=== PATIENT | male | born 1965 | race Caucasian/White ===

== ENCOUNTER 2017-07-30 19:01 | Inpatient (IN) | payer MEDICARE, MEDICAID ==
[~2017-07-30] VITALS: Ht 170.2 cm; Wt 77.6 kg
--- NOTE | 2017-07-30 19:37 | EKG ---
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
[2017-07-30 19:48] LABS: BASO % 1 % (0-3); EOS # 0.1 x10^3/uL (0.0-0.7); EOS % 2 % (0-3); HEMATOCRIT 38.7 % (39.0-53.0); HEMOGLOBIN 13.3 g/dL (13.0-17.5); LYMPH # 1.8 x10^3/uL (1.0-4.8); LYMPH % 29 % (24-48); MEAN CORPUSCULAR HEMOGLOBIN 31 pg (25-35); MEAN CORPUSCULAR HGB CONC 34 g/dL (31-37); MEAN CORPUSCULAR VOLUME 92 fL (79-100); MONO # 0.8 x10^3/uL (0.0-1.1); MONO % 13 % (0-9); NEUT # 3.3 x10^3uL (1.8-7.7); NEUT % 55 % (31-73); PLATELET COUNT 294 x10^3/uL (140-400); RED BLOOD COUNT 4.24 x10^6/uL (4.30-5.70); RED CELL DISTRIBUTION WIDTH 13.3 % (11.5-14.5)
[2017-07-30 19:59] LABS: PHENY 13.8 mcg/mL (10.0-20.0)
[2017-07-30 20:00] LABS: ALBUMIN 3.7 g/dL (3.4-5.0); ALBUMIN/GLOBULIN RATIO 0.8 (1.0-1.7); CALCIUM 9.7 mg/dL (8.5-10.1); GFR 77.9; MAGNESIUM 2.1 mg/dL (1.8-2.4); POTASSIUM 3.8 mmol/L (3.5-5.1); TOTAL BILIRUBIN 0.2 mg/dL (0.2-1.0); TOTAL PROTEIN 8.3 g/dL (6.4-8.2); VAL ACID 25 mcg/mL (50-100)
--- NOTE | 2017-07-30 20:22 | PHYS DOC ---
Adult General Chief Complaint Chief Complaint: MEDICAL CLEARANCE HPI HPI Patient is a 52-year-old male with psychiatric history who is brought in the ED for medical clearance prior to being admitted for psychiatric evaluation. There are no acute complaints Review of Systems Review of Systems Constitutional: No complaints [] Eyes: No complaints HENT: No complaints Respiratory: No complaints[] Cardiovascular: No complaintsI [] GI: No complaints : No complaints Musculoskeletal: No complaints[] Integument: No complaints] Neurologic: No complaints [] All other systems were reviewed and found to be within normal limits, except as documented in this note. Allergies Allergies Allergies Coded Allergies Type Severity Reaction Last Updated Verified haloperidol Allergy Unknown 07/30/17 Yes ketchup Allergy Unknown 07/30/17 Yes Physical Exam Physical Exam Constitutional: Well developed, well nourished, no acute distress, non-toxic appearance. [] HENT: Normocephalic, atraumatic, bilateral external ears normal, oropharynx moist, no oral exudates, nose normal. [] Eyes: EOMI, conjunctiva normal, no discharge. [] Neck: Normal range of motion, no tenderness, supple, no stridor. No LAD, no meningeal signs Cardiovascular:Heart rate regular rhythm, no murmur, normal perfusion, equal pulses Lungs & Thorax: Bilateral breath sounds clear to auscultation, no tachypnea Abdomen: Bowel sounds normal, soft, no tenderness, no masses, no pulsatile masses. [] Skin: Warm, dry, no erythema, no rash. [] Back: No tenderness, no CVA tenderness. [] Extremities: No tenderness, , ROM intact, no edema. [] Neurologic: Alert and oriented X 3, normal motor function, , no focal deficits noted. [] Psychologic: Affect normal Current Patient Data Lab Results Laboratory Tests Test 07/30/17 19:25 White Blood Count 6.0 x10^3/uL (4.0-11.0) Red Blood Count 4.24 x10^6/uL (4.30-5.70) L Hemoglobin 13.3 g/dL (13.0-17.5) Hematocrit 38.7 % (39.0-53.0) L Mean Corpuscular Volume 92 fL (79-100) Mean Corpuscular Hemoglobin 31 pg (25-35) Mean Corpuscular Hemoglobin Concent 34 g/dL (31-37) Red Cell Distribution Width 13.3 % (11.5-14.5) Platelet Count 294 x10^3/uL (140-400) Neutrophils (%) (Auto) 55 % (31-73) Lymphocytes (%) (Auto) 29 % (24-48) Monocytes (%) (Auto) 13 % (0-9) H Eosinophils (%) (Auto) 2 % (0-3) Basophils (%) (Auto) 1 % (0-3) Neutrophils # (Auto) 3.3 x10^3uL (1.8-7.7) Lymphocytes # (Auto) 1.8 x10^3/uL (1.0-4.8) Monocytes # (Auto) 0.8 x10^3/uL (0.0-1.1) Eosinophils # (Auto) 0.1 x10^3/uL (0.0-0.7) Basophils # (Auto) 0.0 x10^3/uL (0.0-0.2) Sodium Level 139 mmol/L (136-145) Potassium Level 3.8 mmol/L (3.5-5.1) Chloride Level 103 mmol/L (98-107) Carbon Dioxide Level 28 mmol/L (21-32) Anion Gap 8 (6-14) Blood Urea Nitrogen 17 mg/dL (8-26) Creatinine 1.0 mg/dL (0.7-1.3) Estimated GFR (Cockcroft-Gault) 77.9 BUN/Creatinine Ratio 17 (6-20) Glucose Level 186 mg/dL (70-99) H Calcium Level 9.7 mg/dL (8.5-10.1) Magnesium Level 2.1 mg/dL (1.8-2.4) Total Bilirubin 0.2 mg/dL (0.2-1.0) Aspartate Amino Transferase (AST) 15 U/L (15-37) Alanine Aminotransferase (ALT) 16 U/L (16-63) Alkaline Phosphatase 76 U/L (46-116) Total Protein 8.3 g/dL (6.4-8.2) H Albumin 3.7 g/dL (3.4-5.0) Albumin/Globulin Ratio 0.8 (1.0-1.7) L Phenytoin (Dilantin) Level 13.8 mcg/mL (10.0-20.0) Phenytoin Last Dose Date 07/30/17 Phenytoin Last Dose Time 0800 Valproic Acid Level 25 mcg/mL (50-100) L Valproic Acid Last Dose Date 07/30/17 Valproic Acid Last Dose Time 0800 EKG EKG 1935, sinus rhythm, no STEMI, 85[] Radiology/Procedures Radiology/Procedures [] Course & Med Decision Making Course & Med Decision Making Pertinent Labs and Imaging studies reviewed. (See chart for details) [] Dragon Disclaimer Dragon Disclaimer This electronic medical record was generated, in whole or in part, using a voice recognition dictation system. Amadeo COLBY MD Jul 30, 2017 20:22
[2017-07-30] MEDS ORDERED: VALPROIC ACID 250 MG CAPSULE. PO SCH (20:49)
[2017-07-30 21:17] LABS: BARBITURATES NEG (NEG); BENZODIAZEPINES NEG (NEG); CANNABINOIDS NEG (NEG); COCAINE NEG (NEG); METHADONE NEG (NEG); OPIATES NEG (NEG); PHENCYCLIDINE NEG (NEG)
[2017-07-30 21:21] LABS: BACTERIA,URINE 0 /HPF (0-FEW); BILIRUBIN,URINE NEG (NEG); CLARITY,URINE HAZY; COLOR,URINE YELLOW; GLUCOSE,URINE 100 mg/dL (NEG); NITRITE,URINE NEG (NEG); RBC,URINE RARE /HPF (0-2); SQUAMOUS EPITHELIAL CELL,UR OCC /LPF; UROBILINOGEN,URINE 0.2 mg/dL (0.2 mg/dL); WBC,URINE OCC /HPF (0-4)
[2017-07-30 21:24] LABS: AMPHETAMINE/METHAMPHETAMINE NEG (NEG)
[2017-07-30] MEDS ORDERED: PHEN125O4 PO (22:46)
[2017-07-30] MEDS ORDERED: TOLT2CAP PO (22:46)
[2017-07-30] MEDS ORDERED: SELE180S3 TP (22:46)
[2017-07-30] MEDS ORDERED: OLAN5TAB3 PO (22:46)
[2017-07-30] MEDS ORDERED: OLAN10TA9 PO (22:46)
[2017-07-30] MEDS ORDERED: SODI100G DT (22:46)
[2017-07-30] MEDS ORDERED: PANT40TA5 PO (22:46)
[2017-07-30] MEDS ORDERED: RISP25DI IM (22:46)
[2017-07-30] MEDS ORDERED: LEVO200T5 PO (22:46)
[2017-07-30] MEDS ORDERED: ATOR10TA60 PO (22:46)
[2017-07-30] MEDS ORDERED: LORA1TAB PO (22:46)
[2017-07-30] MEDS ORDERED: MULT1TAB90 PO (22:46)
[2017-07-30] MEDS ORDERED: OLAN20TA3 PO (22:46)
[2017-07-30] MEDS ORDERED: OMEG-33 PO (22:46)
[2017-07-30] MEDS ORDERED: DIVA500T4 PO ×2 (22:46)
[2017-07-30] MEDS ORDERED: POLY119P4 PO (22:46)
[2017-07-30] MEDS ORDERED: CHOL10003 PO (22:46)
[2017-07-30] MEDS ORDERED: CLOZ200T PO ×2 (22:46)
[2017-07-30] MEDS ORDERED: ACET500T68 PO (22:46)
[2017-07-30 23:37] VITALS: BP 133/61
[2017-07-31] MEDS ORDERED: QUET100T4 PO (01:53)
[2017-07-31 06:58] VITALS: BP 111/69
[2017-07-31] MEDS: LEVOTHYROXINE 100 MCG TABLET PO SCH (07:23)
[2017-07-31] MEDS ORDERED: SELENIUM SULFIDE 1% TOPICAL SHAMPOO 207ML BOTTLE. TP SCH ×2 (07:30→14:29)
[2017-07-31] MEDS ORDERED: OLANZapine 10 MG TABLET PO SCH ×2 (09:00→21:00)
[2017-07-31] MEDS ORDERED: DIVALPROEX ER 500 MG TAB.ER.24H PO SCH ×3 (09:00→21:00)
[2017-07-31] MEDS ORDERED: SODIUM FLUORIDE DT SCH (09:00)
[2017-07-31] MEDS: cloZAPine 100 MG TABLET PO SCH ×2 (09:35→20:27)
[2017-07-31] MEDS: DIVALPROEX ER 500 MG TAB.ER.24H PO SCH (09:35)
[2017-07-31] MEDS: OLANZapine 10 MG TABLET PO SCH (09:36)
[2017-07-31] MEDS: OXYBUTYNIN CHLORIDE 5 MG TABLET PO SCH ×3 (09:36→20:27)
[2017-07-31] MEDS: OMEGA-3 FATTY ACIDS/FISH OIL 1,000 MG CAPSULE. PO SCH (09:36)
[2017-07-31] MEDS: QUEtiapine 100 MG TABLET. PO SCH ×2 (09:36→20:27)
[2017-07-31 11:21] LABS: THYROID STIM HORMONE (TSH) 1.764 uIU/mL (0.358-3.740)
[2017-07-31] MEDS ORDERED: OLANZapine 5 MG TABLET PO SCH ×2 (14:00)
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
[2017-07-31 16:17] VITALS: BP 138/63
[2017-07-31 16:18] LABS: HEMOGLOBIN A1C 5.2 % (4.8-5.6); T3 TOTAL 90 ng/dL (71-180); THYROXINE 4.8 ug/dL (4.5-12.0)
[2017-07-31] MEDS: ATORVASTATIN CALCIUM 10 MG TABLET. PO SCH (20:27)
[2017-07-31] MEDS: PHENYTOIN SODIUM EXTENDED 100 MG CAPSULE PO SCH (20:27)
[2017-07-31] MEDS ORDERED: ATORVASTATIN CALCIUM 10 MG TABLET. PO SCH (21:00)
--- NOTE | 2017-07-31 21:06 | PDOC ---
Exam Note: Chad Note: Please also refer to the separate dictated note~for this date of service dictated separately.~Patient seen individually. Discussed the patient with Nursing staff reviewed the chart.~Reviewed interim history and current functioning. Reviewed vital signs,~Labs/ Radiology~and current medications noted below. Continue current treatment with the changes noted in the dictated addendum note Assessment: Vital Signs: Vital Signs Date Time Temp Pulse Resp B/P (MAP) Pulse Ox O2 Delivery O2 Flow Rate FiO2 07/31/17 16:17 97.2 95 16 138/63 (88) 98 Room Air I&O Intake and Output 07/31/17 07:00 Intake Total 0 ml Balance 0 ml Intake Oral 0 ml Current Medications: Meds: Current Medications Valproic Acid (Depakene) 500 mg STAT PO Last administered on 07/30/17at 21:21; Start 07/30/17 at 20:49 Divalproex Sodium (Depakote Er) 1,000 mg QHS PO ; Start 07/31/17 at 21:00; Stop 07/31/17 at 21:00; Status DC Divalproex Sodium (Depakote Er) 500 mg DAILY PO ; Start 07/31/17 at 09:00; Stop 07/31/17 at 09:00; Status DC Lorazepam (Ativan) 1 mg PRN BID PRN PO ANXIETY / AGITATION; Start 07/30/17 at 23 :00 Olanzapine (ZyPREXA) 10 mg DAILY PO ; Start 07/31/17 at 09:00; Stop 07/31/17 at 09:00; Status DC Olanzapine (ZyPREXA) 5 mg DAILY@1400 PO ; Start 07/31/17 at 14:00; Stop at 14:00; Status DC Risperidone (RisperDAL CONSTA) 25 mg Q2WKS IM ; Start 08/13/17 at 09:00; Status UNV Clozapine (Clozaril) 200 mg DAILY PO Last administered on 07/31/17at 09:35; Start 07/31/17 at 09:00 Clozapine (Clozaril) 500 mg QHS PO Last administered on 07/31/17at 20:27; Start 07/31/17 at 21:00 Olanzapine (ZyPREXA) 20 mg QHS PO Last administered on 07/31/17at 20:28; Start 07/31/17 at 21:00 Atorvastatin Calcium (Lipitor) 10 mg QHS PO ; Start 07/31/17 at 21:00; Stop 03/10 at 21:00; Status DC Phenytoin Sodium (Dilantin) 300 mg QHS PO Last administered on 07/31/17at 20:27 ; Start 07/31/17 at 21:00 Non-Formulary Medication (Sodium Fluoride (Prevident 5000)) 1 carlee BID DT ; Start 07/31/17 at 09:00; Stop 07/31/17 at 09:00; Status DC Oxybutynin Chloride (Ditropan) 5 mg [id number] PO Last administered on 07/31/17at 20 :27; Start 07/31/17 at 09:00 Quetiapine Fumarate (SEROquel) 100 mg BID PO Last administered on 07/31/17 20: 27; Start 07/31/17 at 09:00 Acetaminophen (Tylenol) 500 mg PRN Q4HRS PRN PO PAIN; Start 07/31/17 at 07:15 Levothyroxine Sodium (Synthroid) 200 mcg DAILY06 PO Last administered on at 07:23; Start 07/31/17 at 07:15 Fish Oil (Fish Oil) 1,000 mg DAILY PO Last administered on 07/31/17at 09:36; Start 07/31/17 at 09:00 Selenium Sulfide (Selsun) 1 carlee TWICEWEEKLY TP ; Start 07/31/17 at 07:30; Stop 07/31/17 at 14:29; Status DC Divalproex Sodium (Depakote Er) 1,000 mg QHS PO Last administered on 07/31/17at 20:26; Start 07/31/17 at 21:00 Atorvastatin Calcium (Lipitor) 10 mg QHS PO Last administered on 07/31/17 20: 27; Start 07/31/17 at 21:00 Divalproex Sodium (Depakote Er) 500 mg DAILY PO Last administered on 07/31/17at 09:35; Start 07/31/17 at 09:00 Olanzapine (ZyPREXA) 10 mg DAILY PO Last administered on 07/31/17at 09:36; Start 07/31/17 at 09:00 Olanzapine (ZyPREXA) 5 mg DAILY@1400 PO Last administered on 07/31/17at 15:07; Start 07/31/17 at 14:00 Selenium Sulfide (Selsun) 1 carlee TWICEWEEKLY TP ; Start 07/31/17 at 14:29 Active Scripts Active Reported Seroquel (Quetiapine Fumarate) 100 Mg Tablet 100 Mg PO BID Prevident 5000 (Sodium Fluoride) 100 Ml Gel..ml. 1 Carlee DT BID Selenium Sulfide 180 Ml Shampoo 1 Carlee TP TWICE WEEKLY Lorazepam 1 Mg Tablet 1 Mg PO PRN BID PRN Acetaminophen 500 Mg Tablet 500 Mg PO PRN Q4HRS PRN Risperdal Consta (Risperidone Microspheres) 25 Mg/2 Ml Disp.syrin 25 Mg IM Q2WKS Phenytoin 125 Mg/5 Ml Oral.susp 300 Mg PO QHS Zyprexa (Olanzapine) 20 Mg Tablet 20 Mg PO QHS Atorvastatin Calcium 10 Mg Tablet 10 Mg PO QHS Zyprexa (Olanzapine) 5 Mg Tablet 5 Mg PO DAILY@1400 Clozapine 200 Mg Tablet 500 Mg PO QHS Clozapine 200 Mg Tablet 200 Mg PO DAILY Detrol La (Tolterodine Tartrate) 2 Mg Cap.er.24h 2 Mg PO BID Depakote Er (Divalproex Sodium) 500 Mg Tab.er.24h 500 Mg PO DAILY Depakote Er (Divalproex Sodium) 500 Mg Tab.er.24h 1,000 Mg PO QHS [place] 3 1,000 Mg Softgel ([place]-3 Fatty Acids/Fish Oil) 1 Each Capsule 1,000 Mg PO DAILY Thera-M Tablet (Multivits,Ca,Minerals/Iron/Fa) 1 Each Tablet 1 Tab PO DAILY Vitamin D3 (Cholecalciferol (Vitamin D3)) 1,000 Unit Tablet 2,000 Unit PO DAILY Olanzapine 10 Mg Tablet 10 Mg PO DAILY Miralax (Polyethylene Glycol 3350) 119 Gm Powder 17 Gm PO DAILY Levothyroxine Sodium 200 Mcg Tablet 200 Mcg PO DAILY06 Pantoprazole Sodium 40 Mg Tablet.dr 40 Mg PO DAILY I have reviewed the current psychotropics carefully including drug interactions. Risk benefit ratio favors no change other than as noted in my dictated progress note. Diagnosis: Problems: (1) Dementia in Alzheimer's disease with delusions (2) Impulse control disorder (3) Schizoaffective disorder, chronic condition with acute exacerbation (4) Borderline intellectual disability STEVEN AYALA MD Jul 31, 2017 21:06
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
[2017-08-01] MEDS: LEVOTHYROXINE 100 MCG TABLET PO SCH (05:51)
[2017-08-01 06:06] VITALS: BP 113/56
[2017-08-01] MEDS: cloZAPine 100 MG TABLET PO SCH ×2 (09:10→20:36)
[2017-08-01] MEDS: DIVALPROEX ER 500 MG TAB.ER.24H PO SCH (09:10)
[2017-08-01] MEDS: OXYBUTYNIN CHLORIDE 5 MG TABLET PO SCH ×3 (09:10→20:34)
[2017-08-01] MEDS: OMEGA-3 FATTY ACIDS/FISH OIL 1,000 MG CAPSULE. PO SCH (09:10)
[2017-08-01] MEDS: QUEtiapine 100 MG TABLET. PO SCH ×2 (09:11→20:34)
[2017-08-01] MEDS: OLANZapine 10 MG TABLET PO SCH (09:30)
[2017-08-01 16:13] VITALS: BP 115/75
[2017-08-01] MEDS: PHENYTOIN SODIUM EXTENDED 100 MG CAPSULE PO SCH (20:34)
[2017-08-01] MEDS: ATORVASTATIN CALCIUM 10 MG TABLET. PO SCH (20:34)
[2017-08-01] MEDS: DIVALPROEX 125 MG CAP.SPRINK PO SCH (20:36)
--- NOTE | 2017-08-01 21:03 | PDOC ---
Exam Note: Chad Note: Please also refer to the separate dictated note~for this date of service dictated separately.~Patient seen individually. Discussed the patient with Nursing staff reviewed the chart.~Reviewed interim history and current functioning. Reviewed vital signs,~Labs/ Radiology~and current medications noted below. Continue current treatment with the changes noted in the dictated addendum note Assessment: Vital Signs: Vital Signs Date Time Temp Pulse Resp B/P (MAP) Pulse Ox O2 Delivery O2 Flow Rate FiO2 08/01/17 16:13 97.6 99 20 115/75 (88) 98 07/31/17 16:17 Room Air I&O Intake and Output 08/01/17 07:00 Intake Total 780 ml Balance 780 ml Intake Oral 780 ml Current Medications: Meds: Current Medications Valproic Acid (Depakene) 500 mg STAT PO Last administered on 07/30/17at 21:21; Start 07/30/17 at 20:49; Stop 08/01/17 at 15:23; Status DC Divalproex Sodium (Depakote Er) 1,000 mg QHS PO ; Start 07/31/17 at 21:00; Stop 07/31/17 at 21:00; Status DC Divalproex Sodium (Depakote Er) 500 mg DAILY PO ; Start 07/31/17 at 09:00; Stop 07/31/17 at 09:00; Status DC Lorazepam (Ativan) 1 mg PRN BID PRN PO ANXIETY / AGITATION; Start 07/30/17 at 23 :00 Olanzapine (ZyPREXA) 10 mg DAILY PO ; Start 07/31/17 at 09:00; Stop 07/31/17 at 09:00; Status DC Olanzapine (ZyPREXA) 5 mg DAILY@1400 PO ; Start 07/31/17 at 14:00; Stop at 14:00; Status DC Risperidone (RisperDAL CONSTA) 25 mg Q2WKS IM ; Start 08/13/17 at 09:00; Status UNV Clozapine (Clozaril) 200 mg DAILY PO Last administered on 08/01/17at 09:10; Start 07/31/17 at 09:00 Clozapine (Clozaril) 500 mg QHS PO Last administered on 08/01/17at 20:36; Start 07/31/17 at 21:00 Olanzapine (ZyPREXA) 20 mg QHS PO Last administered on 07/31/17 20:28; Start 07/31/17 at 21:00; Stop 08/01/17 at 09:51; Status DC Atorvastatin Calcium (Lipitor) 10 mg QHS PO ; Start 07/31/17 at 21:00; Stop 03/10 at 21:00; Status DC Phenytoin Sodium (Dilantin) 300 mg QHS PO Last administered on 08/01/17at 20:34 ; Start 07/31/17 at 21:00 Non-Formulary Medication (Sodium Fluoride (Prevident 5000)) 1 carlee BID DT ; Start 07/31/17 at 09:00; Stop 07/31/17 at 09:00; Status DC Oxybutynin Chloride (Ditropan) 5 mg [id number] PO Last administered on 08/01/17at 20 :34; Start 07/31/17 at 09:00 Quetiapine Fumarate (SEROquel) 100 mg BID PO Last administered on 08/01/17at 20: 34; Start 07/31/17 at 09:00 Acetaminophen (Tylenol) 500 mg PRN Q4HRS PRN PO PAIN; Start 07/31/17 at 07:15 Levothyroxine Sodium (Synthroid) 200 mcg DAILY06 PO Last administered on at 05:51; Start 07/31/17 at 07:15 Fish Oil (Fish Oil) 1,000 mg DAILY PO Last administered on 07/31/17at 09:36; Start 07/31/17 at 09:00; Stop 08/01/17 at 09:51; Status DC Selenium Sulfide (Selsun) 1 carlee TWICEWEEKLY TP ; Start 07/31/17 at 07:30; Stop 07/31/17 at 14:29; Status DC Divalproex Sodium (Depakote Er) 1,000 mg QHS PO Last administered on 07/31/17at 20:26; Start 07/31/17 at 21:00; Stop 08/01/17 at 18:29; Status DC Atorvastatin Calcium (Lipitor) 10 mg QHS PO Last administered on 08/01/17at 20: 34; Start 07/31/17 at 21:00 Divalproex Sodium (Depakote Er) 500 mg DAILY PO Last administered on 08/01/17at 09:10; Start 07/31/17 at 09:00; Stop 08/01/17 at 09:51; Status DC Olanzapine (ZyPREXA) 10 mg DAILY PO Last administered on 08/01/17at 09:30; Start 07/31/17 at 09:00; Stop 08/01/17 at 09:51; Status DC Olanzapine (ZyPREXA) 5 mg DAILY@1400 PO Last administered on 07/31/17at 15:07; Start 07/31/17 at 14:00; Stop 08/01/17 at 09:51; Status DC Selenium Sulfide (Selsun) 1 carlee TWICEWEEKLY TP ; Start 07/31/17 at 14:29 Divalproex Sodium (Depakote Er) 750 mg DAILY PO ; Start 08/02/17 at 09:00; Stop 08/02/17 at 09:00; Status DC Divalproex Sodium (Depakote Sprinkles) 750 mg BID PO Last administered on at 20:36; Start 08/01/17 at 21:00 Active Scripts Active Reported Seroquel (Quetiapine Fumarate) 100 Mg Tablet 100 Mg PO BID Prevident 5000 (Sodium Fluoride) 100 Ml Gel..ml. 1 Carlee DT BID Selenium Sulfide 180 Ml Shampoo 1 Carlee TP TWICE WEEKLY Lorazepam 1 Mg Tablet 1 Mg PO PRN BID PRN Acetaminophen 500 Mg Tablet 500 Mg PO PRN Q4HRS PRN Risperdal Consta (Risperidone Microspheres) 25 Mg/2 Ml Disp.syrin 25 Mg IM Q2WKS Phenytoin 125 Mg/5 Ml Oral.susp 300 Mg PO QHS Zyprexa (Olanzapine) 20 Mg Tablet 20 Mg PO QHS Atorvastatin Calcium 10 Mg Tablet 10 Mg PO QHS Zyprexa (Olanzapine) 5 Mg Tablet 5 Mg PO DAILY@1400 Clozapine 200 Mg Tablet 500 Mg PO QHS Clozapine 200 Mg Tablet 200 Mg PO DAILY Detrol La (Tolterodine Tartrate) 2 Mg Cap.er.24h 2 Mg PO BID Depakote Er (Divalproex Sodium) 500 Mg Tab.er.24h 500 Mg PO DAILY Depakote Er (Divalproex Sodium) 500 Mg Tab.er.24h 1,000 Mg PO QHS [place] 3 1,000 Mg Softgel ([place]-3 Fatty Acids/Fish Oil) 1 Each Capsule 1,000 Mg PO DAILY Thera-M Tablet (Multivits,Ca,Minerals/Iron/Fa) 1 Each Tablet 1 Tab PO DAILY Vitamin D3 (Cholecalciferol (Vitamin D3)) 1,000 Unit Tablet 2,000 Unit PO DAILY Olanzapine 10 Mg Tablet 10 Mg PO DAILY Miralax (Polyethylene Glycol 3350) 119 Gm Powder 17 Gm PO DAILY Levothyroxine Sodium 200 Mcg Tablet 200 Mcg PO DAILY06 Pantoprazole Sodium 40 Mg Tablet.dr 40 Mg PO DAILY I have reviewed the current psychotropics carefully including drug interactions. Risk benefit ratio favors no change other than as noted in my dictated progress note. Diagnosis: Problems: (1) Dementia in Alzheimer's disease with delusions (2) Impulse control disorder (3) Schizoaffective disorder, chronic condition with acute exacerbation (4) Borderline intellectual disability STEVEN AYALA MD Aug 01, 2017 21:03
[2017-08-01] MEDS: ACETAMINOPHEN 500 MG TABLET PO PRN (21:40)
[2017-08-02 05:44] VITALS: BP 100/64
[2017-08-02] MEDS: LEVOTHYROXINE 100 MCG TABLET PO SCH (05:49)
[2017-08-02] MEDS ORDERED: DIVALPROEX ER 250 MG TAB.ER.24H. PO SCH (09:00)
[2017-08-02] MEDS: cloZAPine 100 MG TABLET PO SCH ×2 (09:10→19:30)
[2017-08-02] MEDS: OXYBUTYNIN CHLORIDE 5 MG TABLET PO SCH ×3 (09:11→19:33)
[2017-08-02] MEDS: DIVALPROEX 125 MG CAP.SPRINK PO SCH ×2 (09:11→19:29)
[2017-08-02] MEDS: QUEtiapine 100 MG TABLET. PO SCH ×2 (09:11→19:29)
[2017-08-02] MEDS: ACETAMINOPHEN 500 MG TABLET PO PRN ×2 (14:05→18:34)
[2017-08-02 16:05] VITALS: BP 148/79
[2017-08-02] MEDS: ATORVASTATIN CALCIUM 10 MG TABLET. PO SCH (19:29)
[2017-08-02] MEDS: PHENYTOIN SODIUM EXTENDED 100 MG CAPSULE PO SCH (19:30)
--- NOTE | 2017-08-02 20:27 | PDOC ---
Exam Note: Chad Note: Please also refer to the separate dictated note~for this date of service dictated separately.~Patient seen individually. Discussed the patient with Nursing staff reviewed the chart.~Reviewed interim history and current functioning. Reviewed vital signs,~Labs/ Radiology~and current medications noted below. Continue current treatment with the changes noted in the dictated addendum note Assessment: Vital Signs: Vital Signs Date Time Temp Pulse Resp B/P (MAP) Pulse Ox O2 Delivery O2 Flow Rate FiO2 08/02/17 16:05 97.9 87 20 148/79 (102) 100 07/31/17 16:17 Room Air I&O Intake and Output 08/02/17 07:00 Intake Total 1320 ml Balance 1320 ml Intake Oral 1320 ml Current Medications: Meds: Current Medications Valproic Acid (Depakene) 500 mg STAT PO Last administered on 07/30/17at 21:21; Start 07/30/17 at 20:49; Stop 08/01/17 at 15:23; Status DC Divalproex Sodium (Depakote Er) 1,000 mg QHS PO ; Start 07/31/17 at 21:00; Stop 07/31/17 at 21:00; Status DC Divalproex Sodium (Depakote Er) 500 mg DAILY PO ; Start 07/31/17 at 09:00; Stop 07/31/17 at 09:00; Status DC Lorazepam (Ativan) 1 mg PRN BID PRN PO ANXIETY / AGITATION; Start 07/30/17 at 23 :00 Olanzapine (ZyPREXA) 10 mg DAILY PO ; Start 07/31/17 at 09:00; Stop 07/31/17 at 09:00; Status DC Olanzapine (ZyPREXA) 5 mg DAILY@1400 PO ; Start 07/31/17 at 14:00; Stop at 14:00; Status DC Risperidone (RisperDAL CONSTA) 25 mg Q2WKS IM ; Start 08/13/17 at 09:00; Status UNV Clozapine (Clozaril) 200 mg DAILY PO Last administered on 08/02/17at 09:10; Start 07/31/17 at 09:00 Clozapine (Clozaril) 500 mg QHS PO Last administered on 08/02/17at 19:30; Start 07/31/17 at 21:00 Olanzapine (ZyPREXA) 20 mg QHS PO Last administered on 07/31/17 20:28; Start 07/31/17 at 21:00; Stop 08/01/17 at 09:51; Status DC Atorvastatin Calcium (Lipitor) 10 mg QHS PO ; Start 07/31/17 at 21:00; Stop 03/10 at 21:00; Status DC Phenytoin Sodium (Dilantin) 300 mg QHS PO Last administered on 08/02/17at 19:30 ; Start 07/31/17 at 21:00 Non-Formulary Medication (Sodium Fluoride (Prevident 5000)) 1 carlee BID DT ; Start 07/31/17 at 09:00; Stop 07/31/17 at 09:00; Status DC Oxybutynin Chloride (Ditropan) 5 mg [id number] PO Last administered on 08/02/17 19 :33; Start 07/31/17 at 09:00 Quetiapine Fumarate (SEROquel) 100 mg BID PO Last administered on 08/02/17 19: 29; Start 07/31/17 at 09:00 Acetaminophen (Tylenol) 500 mg PRN Q4HRS PRN PO PAIN Last administered on 18:34; Start 07/31/17 at 07:15 Levothyroxine Sodium (Synthroid) 200 mcg DAILY06 PO Last administered on 05:49; Start 07/31/17 at 07:15 Fish Oil (Fish Oil) 1,000 mg DAILY PO Last administered on 07/31/17at 09:36; Start 07/31/17 at 09:00; Stop 08/01/17 at 09:51; Status DC Selenium Sulfide (Selsun) 1 carlee TWICEWEEKLY TP ; Start 07/31/17 at 07:30; Stop 07/31/17 at 14:29; Status DC Divalproex Sodium (Depakote Er) 1,000 mg QHS PO Last administered on 07/31/17at 20:26; Start 07/31/17 at 21:00; Stop 08/01/17 at 18:29; Status DC Atorvastatin Calcium (Lipitor) 10 mg QHS PO Last administered on 08/02/17at 19: 29; Start 07/31/17 at 21:00 Divalproex Sodium (Depakote Er) 500 mg DAILY PO Last administered on 08/01/17at 09:10; Start 07/31/17 at 09:00; Stop 08/01/17 at 09:51; Status DC Olanzapine (ZyPREXA) 10 mg DAILY PO Last administered on 08/01/17at 09:30; Start 07/31/17 at 09:00; Stop 08/01/17 at 09:51; Status DC Olanzapine (ZyPREXA) 5 mg DAILY@1400 PO Last administered on 07/31/17at 15:07; Start 07/31/17 at 14:00; Stop 08/01/17 at 09:51; Status DC Selenium Sulfide (Selsun) 1 carlee TWICEWEEKLY TP ; Start 07/31/17 at 14:29 Divalproex Sodium (Depakote Er) 750 mg DAILY PO ; Start 08/02/17 at 09:00; Stop 08/02/17 at 09:00; Status DC Divalproex Sodium (Depakote Sprinkles) 750 mg BID PO Last administered on at 19:29; Start 08/01/17 at 21:00 Active Scripts Active Reported Seroquel (Quetiapine Fumarate) 100 Mg Tablet 100 Mg PO BID Prevident 5000 (Sodium Fluoride) 100 Ml Gel..ml. 1 Carlee DT BID Selenium Sulfide 180 Ml Shampoo 1 Carlee TP TWICE WEEKLY Lorazepam 1 Mg Tablet 1 Mg PO PRN BID PRN Acetaminophen 500 Mg Tablet 500 Mg PO PRN Q4HRS PRN Risperdal Consta (Risperidone Microspheres) 25 Mg/2 Ml Disp.syrin 25 Mg IM Q2WKS Phenytoin 125 Mg/5 Ml Oral.susp 300 Mg PO QHS Zyprexa (Olanzapine) 20 Mg Tablet 20 Mg PO QHS Atorvastatin Calcium 10 Mg Tablet 10 Mg PO QHS Zyprexa (Olanzapine) 5 Mg Tablet 5 Mg PO DAILY@1400 Clozapine 200 Mg Tablet 500 Mg PO QHS Clozapine 200 Mg Tablet 200 Mg PO DAILY Detrol La (Tolterodine Tartrate) 2 Mg Cap.er.24h 2 Mg PO BID Depakote Er (Divalproex Sodium) 500 Mg Tab.er.24h 500 Mg PO DAILY Depakote Er (Divalproex Sodium) 500 Mg Tab.er.24h 1,000 Mg PO QHS [place] 3 1,000 Mg Softgel ([place]-3 Fatty Acids/Fish Oil) 1 Each Capsule 1,000 Mg PO DAILY Thera-M Tablet (Multivits,Ca,Minerals/Iron/Fa) 1 Each Tablet 1 Tab PO DAILY Vitamin D3 (Cholecalciferol (Vitamin D3)) 1,000 Unit Tablet 2,000 Unit PO DAILY Olanzapine 10 Mg Tablet 10 Mg PO DAILY Miralax (Polyethylene Glycol 3350) 119 Gm Powder 17 Gm PO DAILY Levothyroxine Sodium 200 Mcg Tablet 200 Mcg PO DAILY06 Pantoprazole Sodium 40 Mg Tablet.dr 40 Mg PO DAILY I have reviewed the current psychotropics carefully including drug interactions. Risk benefit ratio favors no change other than as noted in my dictated progress note. Diagnosis: Problems: (1) Dementia in Alzheimer's disease with delusions (2) Impulse control disorder (3) Schizoaffective disorder, chronic condition with acute exacerbation (4) Borderline intellectual disability STEVEN AYALA MD Aug 02, 2017 20:27
[2017-08-02] MEDS: LORazepam 1 MG TABLET PO PRN (21:30)
[2017-08-03] MEDS: LEVOTHYROXINE 100 MCG TABLET PO SCH (05:53)
[2017-08-03 05:57] VITALS: BP 125/73
--- NOTE | 2017-08-03 08:48 | PN ---
DATE: 08/01/2017 PSYCHIATRIC PROGRESS NOTE This late entry 08/01/2017 covers elements not covered in my initial note of 08/01/2017. SUBJECTIVE: met with the patient in the evening of 08/01/2017. Overall, the patient's drooling is better. He still intermittently psychotic, states he can see things and people sitting on his lap and arms, but he is not reacting to it. He is certainly not aggressive despite reduction of his Zyprexa, discontinuation of his intramuscular Abilify. REVIEW OF SYSTEMS: No CV, , pulmonary, eye, ENT system symptoms on review. MENTAL STATUS EXAM: Oriented to himself, situation. Speech is coherent, abstraction fair, computation impaired, language function intact, attention span short. Mood and affect improved lability. LABORATORY DATA: Reviewed. IMPRESSION: Schizoaffective disorder, bipolar type, mixed with psychotic features, intellectual disability. PLAN: Change the Depakote ER to Sprinkles 750 b.i.d. We are repeating labs level on the 08/04/2017. Continue Rest unchanged, per initial note. MAN Suleman AYALA MD DR: ADALBERTO/garry JOB#: [id number] / [id number]
[2017-08-03] MEDS: QUEtiapine 100 MG TABLET. PO SCH ×2 (09:37→20:33)
[2017-08-03] MEDS: cloZAPine 100 MG TABLET PO SCH ×2 (09:37→20:32)
[2017-08-03] MEDS: DIVALPROEX 125 MG CAP.SPRINK PO SCH ×2 (09:37→20:33)
[2017-08-03] MEDS: OXYBUTYNIN CHLORIDE 5 MG TABLET PO SCH ×3 (09:38→20:33)
[2017-08-03] MEDS: LORazepam 1 MG TABLET PO PRN ×2 (11:36→22:01)
[2017-08-03] MEDS: MAG HYDROX/AL HYDROX/SIMETH 30 ML ORAL.SUSP PO PRN (12:04)
[2017-08-03 15:57] VITALS: BP 116/67
[2017-08-03] MEDS: MAGNESIUM HYDROXIDE 2,400 MG/30 ML ORAL.SUSP. PO PRN (17:16)
[2017-08-03] MEDS: PHENYTOIN SODIUM EXTENDED 100 MG CAPSULE PO SCH (20:33)
[2017-08-03] MEDS: ATORVASTATIN CALCIUM 10 MG TABLET. PO SCH (20:33)
[2017-08-03] MEDS: ACETAMINOPHEN 500 MG TABLET PO PRN (21:58)
--- NOTE | 2017-08-03 22:06 | PN ---
DATE: 08/02/2017 This late entry for 08/02/2017 covers elements not covered in my initial note of 08/02/2017. SUBJECTIVE: I met with the patient in the evening of 08/02/2017. The patient slept 6 hours previous evening, has been more appropriate on the unit, still anxious at times, paranoid with some mood lability. REVIEW OF SYSTEMS: No CV, , pulmonary, eye, ENT system symptoms on review. Reliability varies. MENTAL STATUS EXAM: Oriented to himself and situation. Speech coherent, less pressured. Abstraction fair, computation impaired, language function intact. Mood and affect, lability is improved. LABORATORY DATA: Reviewed. IMPRESSION: Schizoaffective disorder, bipolar type, mixed with psychotic features. Rest unchanged. PLAN: Continue current psychotropics, Zyprexa was reduced. We will plan to discontinue it. Maintain clozapine, Seroquel, Depakote is being adjusted. Follow labs level on 08/04/2017. MAN Suleman AYALA MD DR: ADALBERTO/garry JOB#: [id number] / [id number]
--- NOTE | 2017-08-03 22:20 | PDOC ---
Exam Note: Chad Note: Please also refer to the separate dictated note~for this date of service dictated separately.~Patient seen individually. Discussed the patient with Nursing staff reviewed the chart.~Reviewed interim history and current functioning. Reviewed vital signs,~Labs/ Radiology~and current medications noted below. Continue current treatment with the changes noted in the dictated addendum note Assessment: Vital Signs: Vital Signs Date Time Temp Pulse Resp B/P (MAP) Pulse Ox O2 Delivery O2 Flow Rate FiO2 08/03/17 15:57 98.1 99 20 116/67 (83) 98 07/31/17 16:17 Room Air I&O Intake and Output 08/03/17 07:00 Intake Total 960 ml Balance 960 ml Intake Oral 960 ml # Voids 2 Current Medications: Meds: Current Medications Valproic Acid (Depakene) 500 mg STAT PO Last administered on 07/30/17at 21:21; Start 07/30/17 at 20:49; Stop 08/01/17 at 15:23; Status DC Divalproex Sodium (Depakote Er) 1,000 mg QHS PO ; Start 07/31/17 at 21:00; Stop 07/31/17 at 21:00; Status DC Divalproex Sodium (Depakote Er) 500 mg DAILY PO ; Start 07/31/17 at 09:00; Stop 07/31/17 at 09:00; Status DC Lorazepam (Ativan) 1 mg PRN BID PRN PO ANXIETY / AGITATION Last administered on 08/03/17at 22:01; Start 07/30/17 at 23:00 Olanzapine (ZyPREXA) 10 mg DAILY PO ; Start 07/31/17 at 09:00; Stop 07/31/17 at 09:00; Status DC Olanzapine (ZyPREXA) 5 mg DAILY@1400 PO ; Start 07/31/17 at 14:00; Stop at 14:00; Status DC Risperidone (RisperDAL CONSTA) 25 mg Q2WKS IM ; Start 08/13/17 at 09:00; Status UNV Clozapine (Clozaril) 200 mg DAILY PO Last administered on 08/03/17at 09:37; Start 07/31/17 at 09:00 Clozapine (Clozaril) 500 mg QHS PO Last administered on 08/03/17at 20:32; Start 07/31/17 at 21:00 Olanzapine (ZyPREXA) 20 mg QHS PO Last administered on 07/31/17 20:28; Start 07/31/17 at 21:00; Stop 08/01/17 at 09:51; Status DC Atorvastatin Calcium (Lipitor) 10 mg QHS PO ; Start 07/31/17 at 21:00; Stop 03/10 at 21:00; Status DC Phenytoin Sodium (Dilantin) 300 mg QHS PO Last administered on 08/03/17 20:33 ; Start 07/31/17 at 21:00 Non-Formulary Medication (Sodium Fluoride (Prevident 5000)) 1 carlee BID DT ; Start 07/31/17 at 09:00; Stop 07/31/17 at 09:00; Status DC Oxybutynin Chloride (Ditropan) 5 mg [id number] PO Last administered on 08/03/17 20 :33; Start 07/31/17 at 09:00 Quetiapine Fumarate (SEROquel) 100 mg BID PO Last administered on 08/03/17 20: 33; Start 07/31/17 at 09:00 Acetaminophen (Tylenol) 500 mg PRN Q4HRS PRN PO PAIN Last administered on 21:58; Start 07/31/17 at 07:15 Levothyroxine Sodium (Synthroid) 200 mcg DAILY06 PO Last administered on 05:53; Start 07/31/17 at 07:15 Fish Oil (Fish Oil) 1,000 mg DAILY PO Last administered on 07/31/17at 09:36; Start 07/31/17 at 09:00; Stop 08/01/17 at 09:51; Status DC Selenium Sulfide (Selsun) 1 carlee TWICEWEEKLY TP ; Start 07/31/17 at 07:30; Stop 07/31/17 at 14:29; Status DC Divalproex Sodium (Depakote Er) 1,000 mg QHS PO Last administered on 07/31/17 20:26; Start 07/31/17 at 21:00; Stop 08/01/17 at 18:29; Status DC Atorvastatin Calcium (Lipitor) 10 mg QHS PO Last administered on 08/03/17 20: 33; Start 07/31/17 at 21:00 Divalproex Sodium (Depakote Er) 500 mg DAILY PO Last administered on 08/01/17at 09:10; Start 07/31/17 at 09:00; Stop 08/01/17 at 09:51; Status DC Olanzapine (ZyPREXA) 10 mg DAILY PO Last administered on 08/01/17at 09:30; Start 07/31/17 at 09:00; Stop 08/01/17 at 09:51; Status DC Olanzapine (ZyPREXA) 5 mg DAILY@1400 PO Last administered on 07/31/17at 15:07; Start 07/31/17 at 14:00; Stop 08/01/17 at 09:51; Status DC Selenium Sulfide (Selsun) 1 carlee TWICEWEEKLY TP ; Start 07/31/17 at 14:29 Divalproex Sodium (Depakote Er) 750 mg DAILY PO ; Start 08/02/17 at 09:00; Stop 08/02/17 at 09:00; Status DC Divalproex Sodium (Depakote Sprinkles) 750 mg BID PO Last administered on at 20:33; Start 08/01/17 at 21:00 Al Hydroxide/Mg Hydroxide (Mylanta Plus Xs) 30 ml PRN AFTMEAL PRN PO DYSPEPSIA Last administered on 08/03/17at 12:04; Start 08/03/17 at 12:00 Magnesium Hydroxide (Milk Of Magnesia) 2,400 mg PRN DAILY PRN PO CONSTIPATION Last administered on 08/03/17at 17:16; Start 08/03/17 at 17:00 Active Scripts Active Reported Seroquel (Quetiapine Fumarate) 100 Mg Tablet 100 Mg PO BID Prevident 5000 (Sodium Fluoride) 100 Ml Gel..ml. 1 Carlee DT BID Selenium Sulfide 180 Ml Shampoo 1 Carlee TP TWICE WEEKLY Lorazepam 1 Mg Tablet 1 Mg PO PRN BID PRN Acetaminophen 500 Mg Tablet 500 Mg PO PRN Q4HRS PRN Risperdal Consta (Risperidone Microspheres) 25 Mg/2 Ml Disp.syrin 25 Mg IM Q2WKS Phenytoin 125 Mg/5 Ml Oral.susp 300 Mg PO QHS Zyprexa (Olanzapine) 20 Mg Tablet 20 Mg PO QHS Atorvastatin Calcium 10 Mg Tablet 10 Mg PO QHS Zyprexa (Olanzapine) 5 Mg Tablet 5 Mg PO DAILY@1400 Clozapine 200 Mg Tablet 500 Mg PO QHS Clozapine 200 Mg Tablet 200 Mg PO DAILY Detrol La (Tolterodine Tartrate) 2 Mg Cap.er.24h 2 Mg PO BID Depakote Er (Divalproex Sodium) 500 Mg Tab.er.24h 500 Mg PO DAILY Depakote Er (Divalproex Sodium) 500 Mg Tab.er.24h 1,000 Mg PO QHS [place] 3 1,000 Mg Softgel ([place]-3 Fatty Acids/Fish Oil) 1 Each Capsule 1,000 Mg PO DAILY Thera-M Tablet (Multivits,Ca,Minerals/Iron/Fa) 1 Each Tablet 1 Tab PO DAILY Vitamin D3 (Cholecalciferol (Vitamin D3)) 1,000 Unit Tablet 2,000 Unit PO DAILY Olanzapine 10 Mg Tablet 10 Mg PO DAILY Miralax (Polyethylene Glycol 3350) 119 Gm Powder 17 Gm PO DAILY Levothyroxine Sodium 200 Mcg Tablet 200 Mcg PO DAILY06 Pantoprazole Sodium 40 Mg Tablet.dr 40 Mg PO DAILY I have reviewed the current psychotropics carefully including drug interactions. Risk benefit ratio favors no change other than as noted in my dictated progress note. Diagnosis: Problems: (1) Dementia in Alzheimer's disease with delusions (2) Impulse control disorder (3) Schizoaffective disorder, chronic condition with acute exacerbation (4) Borderline intellectual disability STEVEN AYALA MD Aug 03, 2017 22:20
[2017-08-04 06:02] VITALS: BP 107/61
[2017-08-04] MEDS: LEVOTHYROXINE 100 MCG TABLET PO SCH (06:37)
[2017-08-04 07:54] LABS: BASO # 0.1 x10^3/uL (0.0-0.2); BASO % 1 % (0-3); EOS # 0.2 x10^3/uL (0.0-0.7); EOS % 4 % (0-3); HEMATOCRIT 36.1 % (39.0-53.0); HEMOGLOBIN 12.3 g/dL (13.0-17.5); LYMPH # 2.1 x10^3/uL (1.0-4.8); LYMPH % 38 % (24-48); MEAN CORPUSCULAR HEMOGLOBIN 32 pg (25-35); MEAN CORPUSCULAR HGB CONC 34 g/dL (31-37); MEAN CORPUSCULAR VOLUME 92 fL (79-100); MONO # 0.6 x10^3/uL (0.0-1.1); MONO % 11 % (0-9); NEUT # 2.5 x10^3uL (1.8-7.7); NEUT % 46 % (31-73); PLATELET COUNT 282 x10^3/uL (140-400); RED BLOOD COUNT 3.92 x10^6/uL (4.30-5.70); RED CELL DISTRIBUTION WIDTH 13.4 % (11.5-14.5); WHITE BLOOD COUNT 5.4 x10^3/uL (4.0-11.0)
[2017-08-04 08:02] LABS: ALBUMIN 2.9 g/dL (3.4-5.0); ALBUMIN/GLOBULIN RATIO 0.7 (1.0-1.7); ALK PHOS 65 U/L (46-116); ALT (SGPT) 18 U/L (16-63); ANION GAP 8 (6-14); AST (SGOT) 14 U/L (15-37); BLOOD UREA NITROGEN 21 mg/dL (8-26); BUN/CREATININE RATIO 21 (6-20); CALCIUM 8.6 mg/dL (8.5-10.1); CARBON DIOXIDE 25 mmol/L (21-32); CHLORIDE 107 mmol/L (98-107); GFR 77.9; GLUCOSE 97 mg/dL (70-99); SODIUM 140 mmol/L (136-145); TOTAL BILIRUBIN 0.1 mg/dL (0.2-1.0); TOTAL PROTEIN 6.8 g/dL (6.4-8.2)
[2017-08-04 08:12] LABS: VAL ACID 31 mcg/mL (50-100)
[2017-08-04] MEDS: cloZAPine 100 MG TABLET PO SCH ×2 (09:21→20:09)
[2017-08-04] MEDS: OXYBUTYNIN CHLORIDE 5 MG TABLET PO SCH ×3 (09:21→20:10)
[2017-08-04] MEDS: QUEtiapine 100 MG TABLET. PO SCH ×2 (09:21→20:09)
[2017-08-04] MEDS: DIVALPROEX 125 MG CAP.SPRINK PO SCH ×2 (09:21→20:10)
[2017-08-04] MEDS: MAG HYDROX/AL HYDROX/SIMETH 30 ML ORAL.SUSP PO PRN ×2 (12:00→22:16)
[2017-08-04] MEDS: ACETAMINOPHEN 500 MG TABLET PO PRN (12:35)
[2017-08-04] MEDS: LORazepam 1 MG TABLET PO PRN (12:36)
--- NOTE | 2017-08-04 16:09 | RAD ---
KUB, 08/04/2017: History: Abdominal pain, distention There is gas and stool scattered throughout the colon without significant colonic distention. Surgical clips are present in the right upper quadrant compatible with a previous cholecystectomy. There is no evidence of organomegaly. Lower pelvic calcifications are compatible with phleboliths. Moderate multilevel degenerative change is present in the spine. IMPRESSION: No acute abdominal abnormality is detected.
[2017-08-04 16:26] VITALS: BP 106/68
[2017-08-04] MEDS: PHENYTOIN SODIUM EXTENDED 100 MG CAPSULE PO SCH (20:09)
[2017-08-04] MEDS: ATORVASTATIN CALCIUM 10 MG TABLET. PO SCH (20:09)
--- NOTE | 2017-08-04 20:44 | PDOC ---
Exam Note: Chad Note: Please also refer to the separate dictated note~for this date of service dictated separately.~Patient seen individually. Discussed the patient with Nursing staff reviewed the chart.~Reviewed interim history and current functioning. Reviewed vital signs,~Labs/ Radiology~and current medications noted below. Continue current treatment with the changes noted in the dictated addendum note Assessment: Vital Signs: Vital Signs Date Time Temp Pulse Resp B/P (MAP) Pulse Ox O2 Delivery O2 Flow Rate FiO2 08/04/17 16:26 97.6 90 19 106/68 (81) 100 07/31/17 16:17 Room Air I&O Intake and Output 08/04/17 07:00 Intake Total 840 ml Balance 840 ml Intake Oral 840 ml # Voids 2 # Bowel Movements 5 Labs: Laboratory Tests Test 08/04/17 07:20 White Blood Count 5.4 x10^3/uL (4.0-11.0) Red Blood Count 3.92 x10^6/uL (4.30-5.70) L Hemoglobin 12.3 g/dL (13.0-17.5) L Hematocrit 36.1 % (39.0-53.0) L Mean Corpuscular Volume 92 fL (79-100) Mean Corpuscular Hemoglobin 32 pg (25-35) Mean Corpuscular Hemoglobin Concent 34 g/dL (31-37) Red Cell Distribution Width 13.4 % (11.5-14.5) Platelet Count 282 x10^3/uL (140-400) Neutrophils (%) (Auto) 46 % (31-73) Lymphocytes (%) (Auto) 38 % (24-48) Monocytes (%) (Auto) 11 % (0-9) H Eosinophils (%) (Auto) 4 % (0-3) H Basophils (%) (Auto) 1 % (0-3) Neutrophils # (Auto) 2.5 x10^3uL (1.8-7.7) Lymphocytes # (Auto) 2.1 x10^3/uL (1.0-4.8) Monocytes # (Auto) 0.6 x10^3/uL (0.0-1.1) Eosinophils # (Auto) 0.2 x10^3/uL (0.0-0.7) Basophils # (Auto) 0.1 x10^3/uL (0.0-0.2) Sodium Level 140 mmol/L (136-145) Potassium Level 4.0 mmol/L (3.5-5.1) Chloride Level 107 mmol/L (98-107) Carbon Dioxide Level 25 mmol/L (21-32) Anion Gap 8 (6-14) Blood Urea Nitrogen 21 mg/dL (8-26) Creatinine 1.0 mg/dL (0.7-1.3) Estimated GFR (Cockcroft-Gault) 77.9 BUN/Creatinine Ratio 21 (6-20) H Glucose Level 97 mg/dL (70-99) Calcium Level 8.6 mg/dL (8.5-10.1) Total Bilirubin 0.1 mg/dL (0.2-1.0) L Aspartate Amino Transferase (AST) 14 U/L (15-37) L Alanine Aminotransferase (ALT) 18 U/L (16-63) Alkaline Phosphatase 65 U/L (46-116) Total Protein 6.8 g/dL (6.4-8.2) Albumin 2.9 g/dL (3.4-5.0) L Albumin/Globulin Ratio 0.7 (1.0-1.7) L Valproic Acid Level 31 mcg/mL (50-100) L Valproic Acid Last Dose Date 08/03/17 Valproic Acid Last Dose Time 2100 Current Medications: Meds: Current Medications Valproic Acid (Depakene) 500 mg STAT PO Last administered on 07/30/17at 21:21; Start 07/30/17 at 20:49; Stop 08/01/17 at 15:23; Status DC Divalproex Sodium (Depakote Er) 1,000 mg QHS PO ; Start 07/31/17 at 21:00; Stop 07/31/17 at 21:00; Status DC Divalproex Sodium (Depakote Er) 500 mg DAILY PO ; Start 07/31/17 at 09:00; Stop 07/31/17 at 09:00; Status DC Lorazepam (Ativan) 1 mg PRN BID PRN PO ANXIETY / AGITATION Last administered on 08/04/17at 12:36; Start 07/30/17 at 23:00 Olanzapine (ZyPREXA) 10 mg DAILY PO ; Start 07/31/17 at 09:00; Stop 07/31/17 at 09:00; Status DC Olanzapine (ZyPREXA) 5 mg DAILY@1400 PO ; Start 07/31/17 at 14:00; Stop at 14:00; Status DC Risperidone (RisperDAL CONSTA) 25 mg Q2WKS IM ; Start 08/13/17 at 09:00; Status UNV Clozapine (Clozaril) 200 mg DAILY PO Last administered on 08/04/17 09:21; Start 07/31/17 at 09:00 Clozapine (Clozaril) 500 mg QHS PO Last administered on 08/04/17at 20:09; Start 07/31/17 at 21:00 Olanzapine (ZyPREXA) 20 mg QHS PO Last administered on 07/31/17 20:28; Start 07/31/17 at 21:00; Stop 08/01/17 at 09:51; Status DC Atorvastatin Calcium (Lipitor) 10 mg QHS PO ; Start 07/31/17 at 21:00; Stop 03/10 at 21:00; Status DC Phenytoin Sodium (Dilantin) 300 mg QHS PO Last administered on 08/04/17at 20:09 ; Start 07/31/17 at 21:00 Non-Formulary Medication (Sodium Fluoride (Prevident 5000)) 1 carlee BID DT ; Start 07/31/17 at 09:00; Stop 07/31/17 at 09:00; Status DC Oxybutynin Chloride (Ditropan) 5 mg [id number] PO Last administered on 08/04/17 20 :10; Start 07/31/17 at 09:00 Quetiapine Fumarate (SEROquel) 100 mg BID PO Last administered on 08/04/17at 20: 09; Start 07/31/17 at 09:00 Acetaminophen (Tylenol) 500 mg PRN Q4HRS PRN PO PAIN Last administered on 12:35; Start 07/31/17 at 07:15 Levothyroxine Sodium (Synthroid) 200 mcg DAILY06 PO Last administered on 06:37; Start 07/31/17 at 07:15 Fish Oil (Fish Oil) 1,000 mg DAILY PO Last administered on 07/31/17at 09:36; Start 07/31/17 at 09:00; Stop 08/01/17 at 09:51; Status DC Selenium Sulfide (Selsun) 1 carlee TWICEWEEKLY TP ; Start 07/31/17 at 07:30; Stop 07/31/17 at 14:29; Status DC Divalproex Sodium (Depakote Er) 1,000 mg QHS PO Last administered on 07/31/17at 20:26; Start 07/31/17 at 21:00; Stop 08/01/17 at 18:29; Status DC Atorvastatin Calcium (Lipitor) 10 mg QHS PO Last administered on 08/04/17at 20: 09; Start 07/31/17 at 21:00 Divalproex Sodium (Depakote Er) 500 mg DAILY PO Last administered on 08/01/17at 09:10; Start 07/31/17 at 09:00; Stop 08/01/17 at 09:51; Status DC Olanzapine (ZyPREXA) 10 mg DAILY PO Last administered on 08/01/17at 09:30; Start 07/31/17 at 09:00; Stop 08/01/17 at 09:51; Status DC Olanzapine (ZyPREXA) 5 mg DAILY@1400 PO Last administered on 07/31/17at 15:07; Start 07/31/17 at 14:00; Stop 08/01/17 at 09:51; Status DC Selenium Sulfide (Selsun) 1 carlee TWICEWEEKLY TP ; Start 07/31/17 at 14:29 Divalproex Sodium (Depakote Er) 750 mg DAILY PO ; Start 08/02/17 at 09:00; Stop 08/02/17 at 09:00; Status DC Divalproex Sodium (Depakote Sprinkles) 750 mg BID PO Last administered on at 09:21; Start 08/01/17 at 21:00; Stop 08/04/17 at 14:28; Status DC Al Hydroxide/Mg Hydroxide (Mylanta Plus Xs) 30 ml PRN AFTMEAL PRN PO DYSPEPSIA Last administered on 08/04/17at 12:00; Start 08/03/17 at 12:00 Magnesium Hydroxide (Milk Of Magnesia) 2,400 mg PRN DAILY PRN PO CONSTIPATION Last administered on 08/03/17at 17:16; Start 3/13/18 at 17:00 Divalproex Sodium (Depakote Sprinkles) 1,000 mg BID PO Last administered on at 20:10; Start 08/04/17 at 21:00 Polyethylene Glycol (miraLAX) 17 gm DAILY PO ; Start 08/05/17 at 09:00 Active Scripts Active Reported Seroquel (Quetiapine Fumarate) 100 Mg Tablet 100 Mg PO BID Prevident 5000 (Sodium Fluoride) 100 Ml Gel..ml. 1 Carlee DT BID Selenium Sulfide 180 Ml Shampoo 1 Carlee TP TWICE WEEKLY Lorazepam 1 Mg Tablet 1 Mg PO PRN BID PRN Acetaminophen 500 Mg Tablet 500 Mg PO PRN Q4HRS PRN Risperdal Consta (Risperidone Microspheres) 25 Mg/2 Ml Disp.syrin 25 Mg IM Q2WKS Phenytoin 125 Mg/5 Ml Oral.susp 300 Mg PO QHS Zyprexa (Olanzapine) 20 Mg Tablet 20 Mg PO QHS Atorvastatin Calcium 10 Mg Tablet 10 Mg PO QHS Zyprexa (Olanzapine) 5 Mg Tablet 5 Mg PO DAILY@1400 Clozapine 200 Mg Tablet 500 Mg PO QHS Clozapine 200 Mg Tablet 200 Mg PO DAILY Detrol La (Tolterodine Tartrate) 2 Mg Cap.er.24h 2 Mg PO BID Depakote Er (Divalproex Sodium) 500 Mg Tab.er.24h 500 Mg PO DAILY Depakote Er (Divalproex Sodium) 500 Mg Tab.er.24h 1,000 Mg PO QHS [place] 3 1,000 Mg Softgel ([place]-3 Fatty Acids/Fish Oil) 1 Each Capsule 1,000 Mg PO DAILY Thera-M Tablet (Multivits,Ca,Minerals/Iron/Fa) 1 Each Tablet 1 Tab PO DAILY Vitamin D3 (Cholecalciferol (Vitamin D3)) 1,000 Unit Tablet 2,000 Unit PO DAILY Olanzapine 10 Mg Tablet 10 Mg PO DAILY Miralax (Polyethylene Glycol 3350) 119 Gm Powder 17 Gm PO DAILY Levothyroxine Sodium 200 Mcg Tablet 200 Mcg PO DAILY06 Pantoprazole Sodium 40 Mg Tablet.dr 40 Mg PO DAILY I have reviewed the current psychotropics carefully including drug interactions. Risk benefit ratio favors no change other than as noted in my dictated progress note. Diagnosis: Problems: (1) Dementia in Alzheimer's disease with delusions (2) Impulse control disorder (3) Schizoaffective disorder, chronic condition with acute exacerbation (4) Borderline intellectual disability LUCY,MAN M MD Aug 04, 2017 20:44
--- NOTE | 2017-08-05 00:49 | PN ---
DATE: 08/04/2017 This late entry, 08/03/2017, covers elements not covered in my initial note of 08/03/2017. SUBJECTIVE: I met with the patient the evening of 08/03/2017. The patient remains somewhat delusional, suspicious per nursing staff reports, believes he has got some bandages on his body whereas he has none. He believes his penis does not work. His bottom is deranged. It is unclear whether some of this is reflective of his intellectual disability or true psychosis. We will continue to monitor. No CV, , pulmonary, eye, ENT system symptoms on review. Reliability varies. MENTAL STATUS EXAM: Oriented to himself and situation. Speech coherent, abstraction fair, computation impaired, language function intact, attention span short. Mood and affect somewhat anxious, labile. He is lying in bed, wanting me to put some extra covers on him which I did, appreciative of this. IMPRESSION: Unchanged from initial note. PLAN: Continue current psychotropics. Depakote was increased since the prior level was low at 25. MAN Suleman AYALA MD DR: ADALBERTO/garry JOB#: [id number] / [id number]
[2017-08-05] MEDS: LEVOTHYROXINE 100 MCG TABLET PO SCH (06:03)
[2017-08-05 06:10] VITALS: BP 100/53
[2017-08-05] MEDS: QUEtiapine 100 MG TABLET. PO SCH ×2 (08:37→20:25)
[2017-08-05] MEDS: DIVALPROEX 125 MG CAP.SPRINK PO SCH ×2 (08:37→20:25)
[2017-08-05] MEDS: cloZAPine 100 MG TABLET PO SCH ×2 (08:37→20:26)
[2017-08-05] MEDS: OXYBUTYNIN CHLORIDE 5 MG TABLET PO SCH ×3 (08:37→20:27)
[2017-08-05] MEDS: POLYETHYLENE GLYCOL 3350 17 GM PACKET. PO SCH (08:40)
[2017-08-05] MEDS: ACETAMINOPHEN 500 MG TABLET PO PRN ×2 (11:23→20:27)
[2017-08-05 16:24] VITALS: BP 121/72
[2017-08-05] MEDS: PHENYTOIN SODIUM EXTENDED 100 MG CAPSULE PO SCH (20:26)
[2017-08-05] MEDS: ATORVASTATIN CALCIUM 10 MG TABLET. PO SCH (20:26)
--- NOTE | 2017-08-05 20:27 | PDOC ---
Exam Note: Chad Note: Please also refer to the separate dictated note~for this date of service dictated separately.~Patient seen individually. Discussed the patient with Nursing staff reviewed the chart.~Reviewed interim history and current functioning. Reviewed vital signs,~Labs/ Radiology~and current medications noted below. Continue current treatment with the changes noted in the dictated addendum note Assessment: Vital Signs: Vital Signs Date Time Temp Pulse Resp B/P (MAP) Pulse Ox O2 Delivery O2 Flow Rate FiO2 08/05/17 16:24 97.3 97 18 121/72 (88) 96 Room Air I&O Intake and Output 08/05/17 07:00 Intake Total 1960 ml Balance 1960 ml Intake Oral 1960 ml # Voids 1 # Bowel Movements 1 Current Medications: Meds: Current Medications Valproic Acid (Depakene) 500 mg STAT PO Last administered on 07/30/17at 21:21; Start 07/30/17 at 20:49; Stop 08/01/17 at 15:23; Status DC Divalproex Sodium (Depakote Er) 1,000 mg QHS PO ; Start 07/31/17 at 21:00; Stop 07/31/17 at 21:00; Status DC Divalproex Sodium (Depakote Er) 500 mg DAILY PO ; Start 07/31/17 at 09:00; Stop 07/31/17 at 09:00; Status DC Lorazepam (Ativan) 1 mg PRN BID PRN PO ANXIETY / AGITATION Last administered on 08/04/17at 12:36; Start 07/30/17 at 23:00 Olanzapine (ZyPREXA) 10 mg DAILY PO ; Start 07/31/17 at 09:00; Stop 07/31/17 at 09:00; Status DC Olanzapine (ZyPREXA) 5 mg DAILY@1400 PO ; Start 07/31/17 at 14:00; Stop at 14:00; Status DC Risperidone (RisperDAL CONSTA) 25 mg Q2WKS IM ; Start 08/13/17 at 09:00; Status UNV Clozapine (Clozaril) 200 mg DAILY PO Last administered on 08/05/17at 08:37; Start 07/31/17 at 09:00 Clozapine (Clozaril) 500 mg QHS PO Last administered on 08/04/17at 20:09; Start 07/31/17 at 21:00 Olanzapine (ZyPREXA) 20 mg QHS PO Last administered on 07/31/17at 20:28; Start 07/31/17 at 21:00; Stop 08/01/17 at 09:51; Status DC Atorvastatin Calcium (Lipitor) 10 mg QHS PO ; Start 07/31/17 at 21:00; Stop 03/10 at 21:00; Status DC Phenytoin Sodium (Dilantin) 300 mg QHS PO Last administered on 08/04/17at 20:09 ; Start 07/31/17 at 21:00 Non-Formulary Medication (Sodium Fluoride (Prevident 5000)) 1 carlee BID DT ; Start 07/31/17 at 09:00; Stop 07/31/17 at 09:00; Status DC Oxybutynin Chloride (Ditropan) 5 mg [id number] PO Last administered on 08/05/17at 14 :05; Start 07/31/17 at 09:00 Quetiapine Fumarate (SEROquel) 100 mg BID PO Last administered on 08/05/17at 08: 37; Start 07/31/17 at 09:00 Acetaminophen (Tylenol) 500 mg PRN Q4HRS PRN PO PAIN Last administered on 11:23; Start 07/31/17 at 07:15 Levothyroxine Sodium (Synthroid) 200 mcg DAILY06 PO Last administered on at 06:03; Start 07/31/17 at 07:15 Fish Oil (Fish Oil) 1,000 mg DAILY PO Last administered on 07/31/17at 09:36; Start 07/31/17 at 09:00; Stop 08/01/17 at 09:51; Status DC Selenium Sulfide (Selsun) 1 carlee TWICEWEEKLY TP ; Start 07/31/17 at 07:30; Stop 07/31/17 at 14:29; Status DC Divalproex Sodium (Depakote Er) 1,000 mg QHS PO Last administered on 07/31/17at 20:26; Start 07/31/17 at 21:00; Stop 08/01/17 at 18:29; Status DC Atorvastatin Calcium (Lipitor) 10 mg QHS PO Last administered on 08/04/17at 20: 09; Start 07/31/17 at 21:00 Divalproex Sodium (Depakote Er) 500 mg DAILY PO Last administered on 08/01/17at 09:10; Start 07/31/17 at 09:00; Stop 08/01/17 at 09:51; Status DC Olanzapine (ZyPREXA) 10 mg DAILY PO Last administered on 08/01/17at 09:30; Start 07/31/17 at 09:00; Stop 08/01/17 at 09:51; Status DC Olanzapine (ZyPREXA) 5 mg DAILY@1400 PO Last administered on 07/31/17at 15:07; Start 07/31/17 at 14:00; Stop 08/01/17 at 09:51; Status DC Selenium Sulfide (Selsun) 1 carlee TWICEWEEKLY TP ; Start 07/31/17 at 14:29 Divalproex Sodium (Depakote Er) 750 mg DAILY PO ; Start 08/02/17 at 09:00; Stop 08/02/17 at 09:00; Status DC Divalproex Sodium (Depakote Sprinkles) 750 mg BID PO Last administered on at 09:21; Start 08/01/17 at 21:00; Stop 08/04/17 at 14:28; Status DC Al Hydroxide/Mg Hydroxide (Mylanta Plus Xs) 30 ml PRN AFTMEAL PRN PO DYSPEPSIA Last administered on 08/04/17at 22:16; Start 08/03/17 at 12:00 Magnesium Hydroxide (Milk Of Magnesia) 2,400 mg PRN DAILY PRN PO CONSTIPATION Last administered on 08/03/17at 17:16; Start 08/03/17 at 17:00 Divalproex Sodium (Depakote Sprinkles) 1,000 mg BID PO Last administered on at 08:37; Start 08/04/17 at 21:00 Polyethylene Glycol (miraLAX) 17 gm DAILY PO Last administered on 08/05/17at 08: 40; Start 08/05/17 at 09:00 Active Scripts Active Reported Seroquel (Quetiapine Fumarate) 100 Mg Tablet 100 Mg PO BID Prevident 5000 (Sodium Fluoride) 100 Ml Gel..ml. 1 Carlee DT BID Selenium Sulfide 180 Ml Shampoo 1 Carlee TP TWICE WEEKLY Lorazepam 1 Mg Tablet 1 Mg PO PRN BID PRN Acetaminophen 500 Mg Tablet 500 Mg PO PRN Q4HRS PRN Risperdal Consta (Risperidone Microspheres) 25 Mg/2 Ml Disp.syrin 25 Mg IM Q2WKS Phenytoin 125 Mg/5 Ml Oral.susp 300 Mg PO QHS Zyprexa (Olanzapine) 20 Mg Tablet 20 Mg PO QHS Atorvastatin Calcium 10 Mg Tablet 10 Mg PO QHS Zyprexa (Olanzapine) 5 Mg Tablet 5 Mg PO DAILY@1400 Clozapine 200 Mg Tablet 500 Mg PO QHS Clozapine 200 Mg Tablet 200 Mg PO DAILY Detrol La (Tolterodine Tartrate) 2 Mg Cap.er.24h 2 Mg PO BID Depakote Er (Divalproex Sodium) 500 Mg Tab.er.24h 500 Mg PO DAILY Depakote Er (Divalproex Sodium) 500 Mg Tab.er.24h 1,000 Mg PO QHS [place] 3 1,000 Mg Softgel ([place]-3 Fatty Acids/Fish Oil) 1 Each Capsule 1,000 Mg PO DAILY Thera-M Tablet (Multivits,Ca,Minerals/Iron/Fa) 1 Each Tablet 1 Tab PO DAILY Vitamin D3 (Cholecalciferol (Vitamin D3)) 1,000 Unit Tablet 2,000 Unit PO DAILY Olanzapine 10 Mg Tablet 10 Mg PO DAILY Miralax (Polyethylene Glycol 3350) 119 Gm Powder 17 Gm PO DAILY Levothyroxine Sodium 200 Mcg Tablet 200 Mcg PO DAILY06 Pantoprazole Sodium 40 Mg Tablet. 40 Mg PO DAILY I have reviewed the current psychotropics carefully including drug interactions. Risk benefit ratio favors no change other than as noted in my dictated progress note. Diagnosis: Problems: (1) Dementia in Alzheimer's disease with delusions (2) Impulse control disorder (3) Schizoaffective disorder, chronic condition with acute exacerbation (4) Borderline intellectual disability STEVEN AYALA MD Aug 05, 2017 20:27
[2017-08-05] MEDS: LORazepam 1 MG TABLET PO PRN (20:35)
[2017-08-06] MEDS: ACETAMINOPHEN 500 MG TABLET PO PRN (04:49)
[2017-08-06] MEDS: LORazepam 1 MG TABLET PO PRN (04:49)
[2017-08-06] MEDS: LEVOTHYROXINE 100 MCG TABLET PO SCH (04:50)
[2017-08-06 06:01] VITALS: BP 114/57
[2017-08-06] MEDS: QUEtiapine 100 MG TABLET. PO SCH ×2 (08:10→19:36)
[2017-08-06] MEDS: cloZAPine 100 MG TABLET PO SCH ×2 (08:10→19:35)
[2017-08-06] MEDS: OXYBUTYNIN CHLORIDE 5 MG TABLET PO SCH ×3 (08:11→19:36)
[2017-08-06] MEDS: DIVALPROEX 125 MG CAP.SPRINK PO SCH ×2 (08:11→19:35)
[2017-08-06] MEDS: POLYETHYLENE GLYCOL 3350 17 GM PACKET. PO SCH (08:11)
--- NOTE | 2017-08-06 09:18 | PN ---
DATE: 08/04/2017 PSYCHIATRIC PROGRESS NOTE This is a late entry for 08/04/2017, covers elements not covered in my initial note of 08/04/2017. SUBJECTIVE: I met with the patient the evening of 08/04/2017 in his room. He has been constipated, complains of abdominal discomfort. We will check KUB, start MiraLax. He also been anxious, attention seeking per nursing report and often talks about seeing invisible people. He had 3 large bowel movements previous evening. REVIEW OF SYSTEMS: Positive for above. No CV, , pulmonary, eye system symptoms on review. MENTAL STATUS EXAM: Oriented to himself and situation. Speech has some latency, coherent. Abstraction fair, computation impaired, language function intact, still somewhat obsessive, ruminative, and somewhat labile in mood. LABORATORY DATA: Reviewed. IMPRESSION: Unchanged from initial note. PLAN: Valproic acid level subtherapeutic at 25. We will increase Depakote Sprinkles to 1000 mg twice a day. Check CBC, CMP level in 3 days. Rest unchanged from initial note. MAN Suleman AYALA MD DR: ADALBERTO/garry JOB#: [id number] / [id number]
[2017-08-06 15:58] VITALS: BP 107/69
[2017-08-06] MEDS: traZODone 100 MG TABLET. PO SCH (19:34)
[2017-08-06] MEDS: ATORVASTATIN CALCIUM 10 MG TABLET. PO SCH (19:36)
[2017-08-06] MEDS: PHENYTOIN SODIUM EXTENDED 100 MG CAPSULE PO SCH (19:36)
--- NOTE | 2017-08-06 20:33 | PDOC ---
Exam Note: Chad Note: Please also refer to the separate dictated note~for this date of service dictated separately.~Patient seen individually. Discussed the patient with Nursing staff reviewed the chart.~Reviewed interim history and current functioning. Reviewed vital signs,~Labs/ Radiology~and current medications noted below. Continue current treatment with the changes noted in the dictated addendum note Assessment: Vital Signs: Vital Signs Date Time Temp Pulse Resp B/P (MAP) Pulse Ox O2 Delivery O2 Flow Rate FiO2 08/06/17 15:58 97.6 80 22 107/69 (82) 99 08/05/17 16:24 Room Air I&O Intake and Output 08/06/17 07:00 Intake Total 1080 ml Balance 1080 ml Intake Oral 1080 ml Current Medications: Meds: Current Medications Valproic Acid (Depakene) 500 mg STAT PO Last administered on 07/30/17at 21:21; Start 07/30/17 at 20:49; Stop 08/01/17 at 15:23; Status DC Divalproex Sodium (Depakote Er) 1,000 mg QHS PO ; Start 07/31/17 at 21:00; Stop 07/31/17 at 21:00; Status DC Divalproex Sodium (Depakote Er) 500 mg DAILY PO ; Start 07/31/17 at 09:00; Stop 07/31/17 at 09:00; Status DC Lorazepam (Ativan) 1 mg PRN BID PRN PO ANXIETY / AGITATION Last administered on 08/06/17at 04:49; Start 07/30/17 at 23:00 Olanzapine (ZyPREXA) 10 mg DAILY PO ; Start 07/31/17 at 09:00; Stop 07/31/17 at 09:00; Status DC Olanzapine (ZyPREXA) 5 mg DAILY@1400 PO ; Start 07/31/17 at 14:00; Stop at 14:00; Status DC Risperidone (RisperDAL CONSTA) 25 mg Q2WKS IM ; Start 08/13/17 at 09:00; Status UNV Clozapine (Clozaril) 200 mg DAILY PO Last administered on 08/06/17at 08:10; Start 07/31/17 at 09:00 Clozapine (Clozaril) 500 mg QHS PO Last administered on 08/06/17at 19:35; Start 07/31/17 at 21:00 Olanzapine (ZyPREXA) 20 mg QHS PO Last administered on 07/31/17 20:28; Start 07/31/17 at 21:00; Stop 08/01/17 at 09:51; Status DC Atorvastatin Calcium (Lipitor) 10 mg QHS PO ; Start 07/31/17 at 21:00; Stop 03/10 at 21:00; Status DC Phenytoin Sodium (Dilantin) 300 mg QHS PO Last administered on 08/06/17 19:36 ; Start 07/31/17 at 21:00 Non-Formulary Medication (Sodium Fluoride (Prevident 5000)) 1 carlee BID DT ; Start 07/31/17 at 09:00; Stop 07/31/17 at 09:00; Status DC Oxybutynin Chloride (Ditropan) 5 mg [id number] PO Last administered on 08/06/17 19 :36; Start 07/31/17 at 09:00 Quetiapine Fumarate (SEROquel) 100 mg BID PO Last administered on 08/06/17 19: 36; Start 07/31/17 at 09:00 Acetaminophen (Tylenol) 500 mg PRN Q4HRS PRN PO PAIN Last administered on 04:49; Start 07/31/17 at 07:15 Levothyroxine Sodium (Synthroid) 200 mcg DAILY06 PO Last administered on 04:50; Start 07/31/17 at 07:15 Fish Oil (Fish Oil) 1,000 mg DAILY PO Last administered on 07/31/17at 09:36; Start 07/31/17 at 09:00; Stop 08/01/17 at 09:51; Status DC Selenium Sulfide (Selsun) 1 carlee TWICEWEEKLY TP ; Start 07/31/17 at 07:30; Stop 07/31/17 at 14:29; Status DC Divalproex Sodium (Depakote Er) 1,000 mg QHS PO Last administered on 07/31/17at 20:26; Start 07/31/17 at 21:00; Stop 08/01/17 at 18:29; Status DC Atorvastatin Calcium (Lipitor) 10 mg QHS PO Last administered on 08/06/17 19: 36; Start 07/31/17 at 21:00 Divalproex Sodium (Depakote Er) 500 mg DAILY PO Last administered on 08/01/17at 09:10; Start 07/31/17 at 09:00; Stop 08/01/17 at 09:51; Status DC Olanzapine (ZyPREXA) 10 mg DAILY PO Last administered on 08/01/17at 09:30; Start 07/31/17 at 09:00; Stop 08/01/17 at 09:51; Status DC Olanzapine (ZyPREXA) 5 mg DAILY@1400 PO Last administered on 07/31/17at 15:07; Start 07/31/17 at 14:00; Stop 08/01/17 at 09:51; Status DC Selenium Sulfide (Selsun) 1 carlee TWICEWEEKLY TP ; Start 07/31/17 at 14:29 Divalproex Sodium (Depakote Er) 750 mg DAILY PO ; Start 08/02/17 at 09:00; Stop 08/02/17 at 09:00; Status DC Divalproex Sodium (Depakote Sprinkles) 750 mg BID PO Last administered on at 09:21; Start 08/01/17 at 21:00; Stop 08/04/17 at 14:28; Status DC Al Hydroxide/Mg Hydroxide (Mylanta Plus Xs) 30 ml PRN AFTMEAL PRN PO DYSPEPSIA Last administered on 08/04/17at 22:16; Start 08/03/17 at 12:00 Magnesium Hydroxide (Milk Of Magnesia) 2,400 mg PRN DAILY PRN PO CONSTIPATION Last administered on 08/03/17at 17:16; Start 08/03/17 at 17:00 Divalproex Sodium (Depakote Sprinkles) 1,000 mg BID PO Last administered on at 19:35; Start 08/04/17 at 21:00 Polyethylene Glycol (miraLAX) 17 gm DAILY PO Last administered on 08/06/17at 08: 11; Start 08/05/17 at 09:00 Trazodone HCl (Desyrel) 100 mg QHS PO Last administered on 08/06/17at 19:34; Start 08/06/17 at 21:00 Trazodone HCl (Desyrel) 100 mg PRN QHS PRN PO INSOMNIA; Start 08/06/17 at 19:00 Active Scripts Active Reported Seroquel (Quetiapine Fumarate) 100 Mg Tablet 100 Mg PO BID Prevident 5000 (Sodium Fluoride) 100 Ml Gel..ml. 1 Carlee DT BID Selenium Sulfide 180 Ml Shampoo 1 Carlee TP TWICE WEEKLY Lorazepam 1 Mg Tablet 1 Mg PO PRN BID PRN Acetaminophen 500 Mg Tablet 500 Mg PO PRN Q4HRS PRN Risperdal Consta (Risperidone Microspheres) 25 Mg/2 Ml Disp.syrin 25 Mg IM Q2WKS Phenytoin 125 Mg/5 Ml Oral.susp 300 Mg PO QHS Zyprexa (Olanzapine) 20 Mg Tablet 20 Mg PO QHS Atorvastatin Calcium 10 Mg Tablet 10 Mg PO QHS Zyprexa (Olanzapine) 5 Mg Tablet 5 Mg PO DAILY@1400 Clozapine 200 Mg Tablet 500 Mg PO QHS Clozapine 200 Mg Tablet 200 Mg PO DAILY Detrol La (Tolterodine Tartrate) 2 Mg Cap.er.24h 2 Mg PO BID Depakote Er (Divalproex Sodium) 500 Mg Tab.er.24h 500 Mg PO DAILY Depakote Er (Divalproex Sodium) 500 Mg Tab.er.24h 1,000 Mg PO QHS [place] 3 1,000 Mg Softgel ([place]-3 Fatty Acids/Fish Oil) 1 Each Capsule 1,000 Mg PO DAILY Thera-M Tablet (Multivits,Ca,Minerals/Iron/Fa) 1 Each Tablet 1 Tab PO DAILY Vitamin D3 (Cholecalciferol (Vitamin D3)) 1,000 Unit Tablet 2,000 Unit PO DAILY Olanzapine 10 Mg Tablet 10 Mg PO DAILY Miralax (Polyethylene Glycol 3350) 119 Gm Powder 17 Gm PO DAILY Levothyroxine Sodium 200 Mcg Tablet 200 Mcg PO DAILY06 Pantoprazole Sodium 40 Mg Tablet.dr 40 Mg PO DAILY I have reviewed the current psychotropics carefully including drug interactions. Risk benefit ratio favors no change other than as noted in my dictated progress note. Diagnosis: Problems: (1) Dementia in Alzheimer's disease with delusions (2) Impulse control disorder (3) Schizoaffective disorder, chronic condition with acute exacerbation (4) Borderline intellectual disability STEVEN AYALA MD Aug 06, 2017 20:33
[2017-08-07] MEDS: LEVOTHYROXINE 100 MCG TABLET PO SCH (06:02)
[2017-08-07 06:06] VITALS: BP 93/49
[2017-08-07] MEDS: DIVALPROEX 125 MG CAP.SPRINK PO SCH ×2 (07:51→20:19)
[2017-08-07] MEDS: QUEtiapine 100 MG TABLET. PO SCH ×2 (07:51→20:20)
[2017-08-07] MEDS: cloZAPine 100 MG TABLET PO SCH ×2 (07:51→20:19)
[2017-08-07] MEDS: OXYBUTYNIN CHLORIDE 5 MG TABLET PO SCH ×3 (07:51→20:20)
[2017-08-07] MEDS: POLYETHYLENE GLYCOL 3350 17 GM PACKET. PO SCH (07:52)
[2017-08-07 07:59] LABS: HEMATOCRIT 34.8 % (39.0-53.0); RED BLOOD COUNT 3.78 x10^6/uL (4.30-5.70); WHITE BLOOD COUNT 6.5 x10^3/uL (4.0-11.0)
[2017-08-07 08:10] LABS: ALBUMIN 2.8 g/dL (3.4-5.0); ALBUMIN/GLOBULIN RATIO 0.7 (1.0-1.7); ALK PHOS 76 U/L (46-116); ALT (SGPT) 18 U/L (16-63); ANION GAP 9 (6-14); AST (SGOT) 16 U/L (15-37); BLOOD UREA NITROGEN 13 mg/dL (8-26); BUN/CREATININE RATIO 16 (6-20); CALCIUM 8.8 mg/dL (8.5-10.1); CARBON DIOXIDE 25 mmol/L (21-32); CHLORIDE 105 mmol/L (98-107); CREATININE 0.8 mg/dL (0.7-1.3); GFR 100.7; GLUCOSE 97 mg/dL (70-99); POTASSIUM 4.1 mmol/L (3.5-5.1); SODIUM 139 mmol/L (136-145); TOTAL BILIRUBIN 0.2 mg/dL (0.2-1.0); TOTAL PROTEIN 6.6 g/dL (6.4-8.2)
[2017-08-07 08:15] LABS: VAL ACID 33 mcg/mL (50-100)
[2017-08-07] MEDS: LORazepam 1 MG TABLET PO PRN (14:18)
[2017-08-07 15:56] VITALS: BP 108/64
[2017-08-07] MEDS: PHENYTOIN SODIUM EXTENDED 100 MG CAPSULE PO SCH (20:20)
[2017-08-07] MEDS: ATORVASTATIN CALCIUM 10 MG TABLET. PO SCH (20:20)
[2017-08-07] MEDS: traZODone 100 MG TABLET. PO SCH (20:21)
--- NOTE | 2017-08-07 22:48 | PDOC ---
Exam Note: Chad Note: Please also refer to the separate dictated note~for this date of service dictated separately.~Patient seen individually. Discussed the patient with Nursing staff reviewed the chart.~Reviewed interim history and current functioning. Reviewed vital signs,~Labs/ Radiology~and current medications noted below. Continue current treatment with the changes noted in the dictated addendum note Assessment: Vital Signs: Vital Signs Date Time Temp Pulse Resp B/P (MAP) Pulse Ox O2 Delivery O2 Flow Rate FiO2 08/07/17 15:56 97.4 92 20 108/64 (79) 98 Room Air I&O Intake and Output 08/07/17 07:00 Intake Total 720 ml Balance 720 ml Intake Oral 720 ml Labs: Laboratory Tests Test 08/07/17 07:15 White Blood Count 6.5 x10^3/uL (4.0-11.0) Red Blood Count 3.78 x10^6/uL (4.30-5.70) L Hemoglobin 12.0 g/dL (13.0-17.5) L Hematocrit 34.8 % (39.0-53.0) L Mean Corpuscular Volume 92 fL (79-100) Mean Corpuscular Hemoglobin 32 pg (25-35) Mean Corpuscular Hemoglobin Concent 34 g/dL (31-37) Red Cell Distribution Width 13.0 % (11.5-14.5) Platelet Count 295 x10^3/uL (140-400) Sodium Level 139 mmol/L (136-145) Potassium Level 4.1 mmol/L (3.5-5.1) Chloride Level 105 mmol/L (98-107) Carbon Dioxide Level 25 mmol/L (21-32) Anion Gap 9 (6-14) Blood Urea Nitrogen 13 mg/dL (8-26) Creatinine 0.8 mg/dL (0.7-1.3) Estimated GFR (Cockcroft-Gault) 100.7 BUN/Creatinine Ratio 16 (6-20) Glucose Level 97 mg/dL (70-99) Calcium Level 8.8 mg/dL (8.5-10.1) Total Bilirubin 0.2 mg/dL (0.2-1.0) Aspartate Amino Transferase (AST) 16 U/L (15-37) Alanine Aminotransferase (ALT) 18 U/L (16-63) Alkaline Phosphatase 76 U/L (46-116) Total Protein 6.6 g/dL (6.4-8.2) Albumin 2.8 g/dL (3.4-5.0) L Albumin/Globulin Ratio 0.7 (1.0-1.7) L Valproic Acid Level 33 mcg/mL (50-100) L Valproic Acid Last Dose Date 08/06/17 Valproic Acid Last Dose Time 2100 Current Medications: Meds: Current Medications Valproic Acid (Depakene) 500 mg STAT PO Last administered on 07/30/17at 21:21; Start 07/30/17 at 20:49; Stop 08/01/17 at 15:23; Status DC Divalproex Sodium (Depakote Er) 1,000 mg QHS PO ; Start 07/31/17 at 21:00; Stop 07/31/17 at 21:00; Status DC Divalproex Sodium (Depakote Er) 500 mg DAILY PO ; Start 07/31/17 at 09:00; Stop 07/31/17 at 09:00; Status DC Lorazepam (Ativan) 1 mg PRN BID PRN PO ANXIETY / AGITATION Last administered on 08/07/17at 14:18; Start 07/30/17 at 23:00 Olanzapine (ZyPREXA) 10 mg DAILY PO ; Start 07/31/17 at 09:00; Stop 07/31/17 at 09:00; Status DC Olanzapine (ZyPREXA) 5 mg DAILY@1400 PO ; Start 07/31/17 at 14:00; Stop at 14:00; Status DC Risperidone (RisperDAL CONSTA) 25 mg Q2WKS IM ; Start 08/13/17 at 09:00; Status UNV Clozapine (Clozaril) 200 mg DAILY PO Last administered on 08/07/17at 07:51; Start 07/31/17 at 09:00 Clozapine (Clozaril) 500 mg QHS PO Last administered on 08/07/17at 20:19; Start 07/31/17 at 21:00 Olanzapine (ZyPREXA) 20 mg QHS PO Last administered on 07/31/17at 20:28; Start 07/31/17 at 21:00; Stop 08/01/17 at 09:51; Status DC Atorvastatin Calcium (Lipitor) 10 mg QHS PO ; Start 07/31/17 at 21:00; Stop 03/10 at 21:00; Status DC Phenytoin Sodium (Dilantin) 300 mg QHS PO Last administered on 08/07/17at 20:20 ; Start 07/31/17 at 21:00 Non-Formulary Medication (Sodium Fluoride (Prevident 5000)) 1 carlee BID DT ; Start 07/31/17 at 09:00; Stop 07/31/17 at 09:00; Status DC Oxybutynin Chloride (Ditropan) 5 mg [id number] PO Last administered on 08/07/17at 20 :20; Start 07/31/17 at 09:00 Quetiapine Fumarate (SEROquel) 100 mg BID PO Last administered on 08/07/17at 20: 20; Start 07/31/17 at 09:00 Acetaminophen (Tylenol) 500 mg PRN Q4HRS PRN PO PAIN Last administered on at 04:49; Start 07/31/17 at 07:15 Levothyroxine Sodium (Synthroid) 200 mcg DAILY06 PO Last administered on at 06:02; Start 07/31/17 at 07:15 Fish Oil (Fish Oil) 1,000 mg DAILY PO Last administered on 07/31/17 09:36; Start 07/31/17 at 09:00; Stop 08/01/17 at 09:51; Status DC Selenium Sulfide (Selsun) 1 carlee TWICEWEEKLY TP ; Start 07/31/17 at 07:30; Stop 07/31/17 at 14:29; Status DC Divalproex Sodium (Depakote Er) 1,000 mg QHS PO Last administered on 07/31/17at 20:26; Start 07/31/17 at 21:00; Stop 08/01/17 at 18:29; Status DC Atorvastatin Calcium (Lipitor) 10 mg QHS PO Last administered on 08/07/17at 20: 20; Start 07/31/17 at 21:00 Divalproex Sodium (Depakote Er) 500 mg DAILY PO Last administered on 08/01/17 09:10; Start 07/31/17 at 09:00; Stop 08/01/17 at 09:51; Status DC Olanzapine (ZyPREXA) 10 mg DAILY PO Last administered on 3/11/18at 09:30; Start 07/31/17 at 09:00; Stop 08/01/17 at 09:51; Status DC Olanzapine (ZyPREXA) 5 mg DAILY@1400 PO Last administered on 07/31/17at 15:07; Start 07/31/17 at 14:00; Stop 08/01/17 at 09:51; Status DC Selenium Sulfide (Selsun) 1 carlee TWICEWEEKLY TP ; Start 07/31/17 at 14:29 Divalproex Sodium (Depakote Er) 750 mg DAILY PO ; Start 08/02/17 at 09:00; Stop 08/02/17 at 09:00; Status DC Divalproex Sodium (Depakote Sprinkles) 750 mg BID PO Last administered on at 09:21; Start 08/01/17 at 21:00; Stop 08/04/17 at 14:28; Status DC Al Hydroxide/Mg Hydroxide (Mylanta Plus Xs) 30 ml PRN AFTMEAL PRN PO DYSPEPSIA Last administered on 08/04/17at 22:16; Start 08/03/17 at 12:00 Magnesium Hydroxide (Milk Of Magnesia) 2,400 mg PRN DAILY PRN PO CONSTIPATION Last administered on 08/03/17at 17:16; Start 08/03/17 at 17:00 Divalproex Sodium (Depakote Sprinkles) 1,000 mg BID PO Last administered on at 07:51; Start 08/04/17 at 21:00; Stop 08/07/17 at 18:35; Status DC Polyethylene Glycol (miraLAX) 17 gm DAILY PO Last administered on 08/07/17at 07: 52; Start 08/05/17 at 09:00 Trazodone HCl (Desyrel) 100 mg QHS PO Last administered on 08/07/17at 20:21; Start 08/06/17 at 21:00 Trazodone HCl (Desyrel) 100 mg PRN QHS PRN PO INSOMNIA; Start 08/06/17 at 19:00 Divalproex Sodium (Depakote Sprinkles) 1,250 mg BID PO Last administered on at 20:19; Start 08/07/17 at 21:00 Active Scripts Active Reported Seroquel (Quetiapine Fumarate) 100 Mg Tablet 100 Mg PO BID Prevident 5000 (Sodium Fluoride) 100 Ml Gel..ml. 1 Carlee DT BID Selenium Sulfide 180 Ml Shampoo 1 Carlee TP TWICE WEEKLY Lorazepam 1 Mg Tablet 1 Mg PO PRN BID PRN Acetaminophen 500 Mg Tablet 500 Mg PO PRN Q4HRS PRN Risperdal Consta (Risperidone Microspheres) 25 Mg/2 Ml Disp.syrin 25 Mg IM Q2WKS Phenytoin 125 Mg/5 Ml Oral.susp 300 Mg PO QHS Zyprexa (Olanzapine) 20 Mg Tablet 20 Mg PO QHS Atorvastatin Calcium 10 Mg Tablet 10 Mg PO QHS Zyprexa (Olanzapine) 5 Mg Tablet 5 Mg PO DAILY@1400 Clozapine 200 Mg Tablet 500 Mg PO QHS Clozapine 200 Mg Tablet 200 Mg PO DAILY Detrol La (Tolterodine Tartrate) 2 Mg Cap.er.24h 2 Mg PO BID Depakote Er (Divalproex Sodium) 500 Mg Tab.er.24h 500 Mg PO DAILY Depakote Er (Divalproex Sodium) 500 Mg Tab.er.24h 1,000 Mg PO QHS [place] 3 1,000 Mg Softgel ([place]-3 Fatty Acids/Fish Oil) 1 Each Capsule 1,000 Mg PO DAILY Thera-M Tablet (Multivits,Ca,Minerals/Iron/Fa) 1 Each Tablet 1 Tab PO DAILY Vitamin D3 (Cholecalciferol (Vitamin D3)) 1,000 Unit Tablet 2,000 Unit PO DAILY Olanzapine 10 Mg Tablet 10 Mg PO DAILY Miralax (Polyethylene Glycol 3350) 119 Gm Powder 17 Gm PO DAILY Levothyroxine Sodium 200 Mcg Tablet 200 Mcg PO DAILY06 Pantoprazole Sodium 40 Mg Tablet. 40 Mg PO DAILY I have reviewed the current psychotropics carefully including drug interactions. Risk benefit ratio favors no change other than as noted in my dictated progress note. Diagnosis: Problems: (1) Dementia in Alzheimer's disease with delusions (2) Impulse control disorder (3) Schizoaffective disorder, chronic condition with acute exacerbation (4) Borderline intellectual disability STEVEN AYALA MD Aug 07, 2017 22:48
--- NOTE | 2017-08-07 23:04 | PN ---
DATE: 08/05/2017 This is a late entry for 08/05/2017 and covers elements not covered in my initial note of 08/05/2017. The patient was staffed at a treatment team meeting morning of 08/05/2017, seen individually in the evening. Remains intermittently anxious, labile, agitated after treatment team meeting, has vague somatic symptoms, talks about having a snake in his head and talking about fire. He states he sees things that sit on his laps. On further review, it is likely that this could be part of his intellectual disability and compensatory mechanisms rather than true hallucinations. We will continue to evaluate. REVIEW OF SYSTEMS: No CV, , pulmonary, eye system symptoms on review. MENTAL STATUS EXAM: Oriented to himself and situation. Speech is coherent, can be rapid at times. Abstraction fair, computation impaired, language function intact, attention span short. Mood and affect, intermittently labile. LABORATORY DATA: Reviewed. IMPRESSION: Schizoaffective disorder, bipolar type; intellectual disability. Rest unchanged. PLAN: Continue current psychotropics: Clozapine 200 mg a.m. and 500 at bedtime, Ativan p.r.n., Dilantin 300 mg at bedtime, Depakote Sprinkles 1000 mg b.i.d., level is 31, will be repeated and adjusted to reach the therapeutic level. Rest unchanged. Follow CBC, absolute neutrophil count weekly. MAN Suleman AYALA MD DR: ADALBERTO/garry JOB#: [id number] / [id number]
--- NOTE | 2017-08-08 01:24 | PN ---
DATE: 08/06/2017 This is a late entry for 08/06/2017 and covers the elements not covered in my initial note of 08/06/2017. SUBJECTIVE: Previous evening, the patient was increasingly anxious, complaining of pain, slept just 1-1/2 hours, slept later in the morning till lunchtime. REVIEW OF SYSTEMS: No CV, , pulmonary, eye, ENT system symptoms on review. MENTAL STATUS EXAM: Oriented to himself and situation. Speech is coherent, can be rapid at times. Abstraction fair, computation impaired, language function intact. Mood and affect intermittently labile. LABORATORY DATA: To be repeated in the morning of 08/07/2017. IMPRESSION: Schizoaffective disorder, bipolar type and intellectual disability. PLAN: Start trazodone 100 mg at bedtime, september repeat x 1 p.r.n. insomnia. Continue rest unchanged. MAN Suleman AYALA MD DR: ADALBERTO/garry JOB#: [id number] / [id number]
[2017-08-08] MEDS: LEVOTHYROXINE 100 MCG TABLET PO SCH (05:57)
[2017-08-08 05:58] VITALS: BP 106/58
[2017-08-08] MEDS: OXYBUTYNIN CHLORIDE 5 MG TABLET PO SCH ×3 (07:53→20:52)
[2017-08-08] MEDS: DIVALPROEX 125 MG CAP.SPRINK PO SCH ×2 (07:53→20:51)
[2017-08-08] MEDS: QUEtiapine 100 MG TABLET. PO SCH ×2 (07:53→20:51)
[2017-08-08] MEDS: cloZAPine 100 MG TABLET PO SCH ×2 (07:54→20:52)
[2017-08-08] MEDS: POLYETHYLENE GLYCOL 3350 17 GM PACKET. PO SCH (07:54)
[2017-08-08] MEDS: LORazepam 1 MG TABLET PO PRN (12:54)
[2017-08-08 16:02] VITALS: BP 106/76
--- NOTE | 2017-08-08 20:47 | PDOC ---
Exam Note: Chad Note: Please also refer to the separate dictated note~for this date of service dictated separately.~Patient seen individually. Discussed the patient with Nursing staff reviewed the chart.~Reviewed interim history and current functioning. Reviewed vital signs,~Labs/ Radiology~and current medications noted below. Continue current treatment with the changes noted in the dictated addendum note Assessment: Vital Signs: Vital Signs Date Time Temp Pulse Resp B/P (MAP) Pulse Ox O2 Delivery O2 Flow Rate FiO2 08/08/17 16:02 97.5 88 20 106/76 (86) 100 08/07/17 15:56 Room Air I&O Intake and Output 08/08/17 07:00 Intake Total 720 ml Balance 720 ml Intake Oral 720 ml Current Medications: Meds: Current Medications Valproic Acid (Depakene) 500 mg STAT PO Last administered on 07/30/17at 21:21; Start 07/30/17 at 20:49; Stop 08/01/17 at 15:23; Status DC Divalproex Sodium (Depakote Er) 1,000 mg QHS PO ; Start 07/31/17 at 21:00; Stop 07/31/17 at 21:00; Status DC Divalproex Sodium (Depakote Er) 500 mg DAILY PO ; Start 07/31/17 at 09:00; Stop 07/31/17 at 09:00; Status DC Lorazepam (Ativan) 1 mg PRN BID PRN PO ANXIETY / AGITATION Last administered on 08/08/17at 12:54; Start 07/30/17 at 23:00 Olanzapine (ZyPREXA) 10 mg DAILY PO ; Start 07/31/17 at 09:00; Stop 07/31/17 at 09:00; Status DC Olanzapine (ZyPREXA) 5 mg DAILY@1400 PO ; Start 07/31/17 at 14:00; Stop at 14:00; Status DC Risperidone (RisperDAL CONSTA) 25 mg Q2WKS IM ; Start 08/13/17 at 09:00; Status UNV Clozapine (Clozaril) 200 mg DAILY PO Last administered on 08/08/17at 07:54; Start 07/31/17 at 09:00 Clozapine (Clozaril) 500 mg QHS PO Last administered on 08/07/17at 20:19; Start 07/31/17 at 21:00 Olanzapine (ZyPREXA) 20 mg QHS PO Last administered on 07/31/17at 20:28; Start 07/31/17 at 21:00; Stop 08/01/17 at 09:51; Status DC Atorvastatin Calcium (Lipitor) 10 mg QHS PO ; Start 07/31/17 at 21:00; Stop 03/10 at 21:00; Status DC Phenytoin Sodium (Dilantin) 300 mg QHS PO Last administered on 08/07/17at 20:20 ; Start 07/31/17 at 21:00 Non-Formulary Medication (Sodium Fluoride (Prevident 5000)) 1 carlee BID DT ; Start 07/31/17 at 09:00; Stop 07/31/17 at 09:00; Status DC Oxybutynin Chloride (Ditropan) 5 mg [id number] PO Last administered on 08/08/17at 13 :05; Start 07/31/17 at 09:00 Quetiapine Fumarate (SEROquel) 100 mg BID PO Last administered on 08/08/17at 07: 53; Start 07/31/17 at 09:00 Acetaminophen (Tylenol) 500 mg PRN Q4HRS PRN PO PAIN Last administered on at 04:49; Start 07/31/17 at 07:15 Levothyroxine Sodium (Synthroid) 200 mcg DAILY06 PO Last administered on at 05:57; Start 07/31/17 at 07:15 Fish Oil (Fish Oil) 1,000 mg DAILY PO Last administered on 07/31/17at 09:36; Start 07/31/17 at 09:00; Stop 08/01/17 at 09:51; Status DC Selenium Sulfide (Selsun) 1 carlee TWICEWEEKLY TP ; Start 07/31/17 at 07:30; Stop 07/31/17 at 14:29; Status DC Divalproex Sodium (Depakote Er) 1,000 mg QHS PO Last administered on 07/31/17at 20:26; Start 07/31/17 at 21:00; Stop 08/01/17 at 18:29; Status DC Atorvastatin Calcium (Lipitor) 10 mg QHS PO Last administered on 08/07/17at 20: 20; Start 07/31/17 at 21:00 Divalproex Sodium (Depakote Er) 500 mg DAILY PO Last administered on 08/01/17at 09:10; Start 07/31/17 at 09:00; Stop 08/01/17 at 09:51; Status DC Olanzapine (ZyPREXA) 10 mg DAILY PO Last administered on 08/01/17at 09:30; Start 07/31/17 at 09:00; Stop 08/01/17 at 09:51; Status DC Olanzapine (ZyPREXA) 5 mg DAILY@1400 PO Last administered on 07/31/17at 15:07; Start 07/31/17 at 14:00; Stop 08/01/17 at 09:51; Status DC Selenium Sulfide (Selsun) 1 carlee TWICEWEEKLY TP ; Start 07/31/17 at 14:29 Divalproex Sodium (Depakote Er) 750 mg DAILY PO ; Start 08/02/17 at 09:00; Stop 08/02/17 at 09:00; Status DC Divalproex Sodium (Depakote Sprinkles) 750 mg BID PO Last administered on at 09:21; Start 08/01/17 at 21:00; Stop 08/04/17 at 14:28; Status DC Al Hydroxide/Mg Hydroxide (Mylanta Plus Xs) 30 ml PRN AFTMEAL PRN PO DYSPEPSIA Last administered on 08/04/17at 22:16; Start 08/03/17 at 12:00 Magnesium Hydroxide (Milk Of Magnesia) 2,400 mg PRN DAILY PRN PO CONSTIPATION Last administered on 08/03/17at 17:16; Start 08/03/17 at 17:00 Divalproex Sodium (Depakote Sprinkles) 1,000 mg BID PO Last administered on at 07:51; Start 08/04/17 at 21:00; Stop 08/07/17 at 18:35; Status DC Polyethylene Glycol (miraLAX) 17 gm DAILY PO Last administered on 08/08/17at 07: 54; Start 08/05/17 at 09:00 Trazodone HCl (Desyrel) 100 mg QHS PO Last administered on 08/07/17at 20:21; Start 08/06/17 at 21:00 Trazodone HCl (Desyrel) 100 mg PRN QHS PRN PO INSOMNIA; Start 08/06/17 at 19:00 Divalproex Sodium (Depakote Sprinkles) 1,250 mg BID PO Last administered on at 07:53; Start 08/07/17 at 21:00 Active Scripts Active Reported Seroquel (Quetiapine Fumarate) 100 Mg Tablet 100 Mg PO BID Prevident 5000 (Sodium Fluoride) 100 Ml Gel..ml. 1 Carlee DT BID Selenium Sulfide 180 Ml Shampoo 1 Carlee TP TWICE WEEKLY Lorazepam 1 Mg Tablet 1 Mg PO PRN BID PRN Acetaminophen 500 Mg Tablet 500 Mg PO PRN Q4HRS PRN Risperdal Consta (Risperidone Microspheres) 25 Mg/2 Ml Disp.syrin 25 Mg IM Q2WKS Phenytoin 125 Mg/5 Ml Oral.susp 300 Mg PO QHS Zyprexa (Olanzapine) 20 Mg Tablet 20 Mg PO QHS Atorvastatin Calcium 10 Mg Tablet 10 Mg PO QHS Zyprexa (Olanzapine) 5 Mg Tablet 5 Mg PO DAILY@1400 Clozapine 200 Mg Tablet 500 Mg PO QHS Clozapine 200 Mg Tablet 200 Mg PO DAILY Detrol La (Tolterodine Tartrate) 2 Mg Cap.er.24h 2 Mg PO BID Depakote Er (Divalproex Sodium) 500 Mg Tab.er.24h 500 Mg PO DAILY Depakote Er (Divalproex Sodium) 500 Mg Tab.er.24h 1,000 Mg PO QHS [place] 3 1,000 Mg Softgel ([place]-3 Fatty Acids/Fish Oil) 1 Each Capsule 1,000 Mg PO DAILY Thera-M Tablet (Multivits,Ca,Minerals/Iron/Fa) 1 Each Tablet 1 Tab PO DAILY Vitamin D3 (Cholecalciferol (Vitamin D3)) 1,000 Unit Tablet 2,000 Unit PO DAILY Olanzapine 10 Mg Tablet 10 Mg PO DAILY Miralax (Polyethylene Glycol 3350) 119 Gm Powder 17 Gm PO DAILY Levothyroxine Sodium 200 Mcg Tablet 200 Mcg PO DAILY06 Pantoprazole Sodium 40 Mg Tablet. 40 Mg PO DAILY I have reviewed the current psychotropics carefully including drug interactions. Risk benefit ratio favors no change other than as noted in my dictated progress note. Diagnosis: Problems: (1) Dementia in Alzheimer's disease with delusions (2) Impulse control disorder (3) Schizoaffective disorder, chronic condition with acute exacerbation (4) Borderline intellectual disability STEVEN AYALA MD Aug 08, 2017 20:47
[2017-08-08] MEDS: traZODone 100 MG TABLET. PO SCH (20:52)
[2017-08-08] MEDS: PHENYTOIN SODIUM EXTENDED 100 MG CAPSULE PO SCH (20:52)
[2017-08-08] MEDS: ATORVASTATIN CALCIUM 10 MG TABLET. PO SCH (20:52)
--- NOTE | 2017-08-08 21:01 | PN ---
DATE: 08/07/2017 PSYCHIATRIC PROGRESS NOTE This is a late entry for 08/07/2017, covers elements not covered in my initial note of 08/07/2017. SUBJECTIVE: I met with the patient the evening of 08/07/2017. The patient slept 6-1/4 hours previous evening, somewhat loud, demanding, helpless in his behaviors and presentation, wanting nursing staff to do much for him that he can do for himself, fixated on the window, somewhat paranoid at times, using profanities "f--- you" towards nursing staff, received Ativan p.r.n. with some help. REVIEW OF SYSTEMS: No CV, , pulmonary, eye system symptoms on review. MENTAL STATUS EXAM: Oriented to himself and situation. Speech coherent, rapid, loud at times. Abstraction fair, computation impaired, language function intact, attention span short. Mood and affect somewhat labile. LABORATORY DATA: Reviewed. IMPRESSION: Schizoaffective disorder, bipolar type; borderline intellectual functioning, intellectual disability; anxiety disorder, unspecified. PLAN: Continue Clozaril at current dosage. Valproic acid level on 08/07/2017 is 33 on Depakote Sprinkles 1000 mg b.i.d. and he is compliant with this. We will increase to 1250 mg b.i.d. Check CBC, CMP, valproic acid level in 3 days. Adjust further as clinically indicated. Reviewed rest of psychotropics, may adjust the Seroquel in due course downwards if the Depakote stabilizes his mood in combination with the clozapine as an antipsychotic . STEVEN AYALA MD DR: ADALBERTO/garry JOB#: [id number] / [id number]
[2017-08-09] VITALS (7 sets, daily range): BP systolic 88–159; BP diastolic 50–83
[2017-08-09] MEDS: LEVOTHYROXINE 100 MCG TABLET PO SCH (05:46)
[2017-08-09 06:43] LABS: BASO # 0.1 x10^3/uL (0.0-0.2); BASO % 1 % (0-3); EOS # 0.2 x10^3/uL (0.0-0.7); EOS % 3 % (0-3); HEMATOCRIT 35.3 % (39.0-53.0); HEMOGLOBIN 12.1 g/dL (13.0-17.5); LYMPH # 2.6 x10^3/uL (1.0-4.8); LYMPH % 40 % (24-48); MEAN CORPUSCULAR HEMOGLOBIN 32 pg (25-35); MEAN CORPUSCULAR HGB CONC 34 g/dL (31-37); MEAN CORPUSCULAR VOLUME 92 fL (79-100); MONO # 0.6 x10^3/uL (0.0-1.1); MONO % 9 % (0-9); NEUT # 3.1 x10^3uL (1.8-7.7); NEUT % 47 % (31-73); PLATELET COUNT 291 x10^3/uL (140-400); RED BLOOD COUNT 3.83 x10^6/uL (4.30-5.70); RED CELL DISTRIBUTION WIDTH 13.1 % (11.5-14.5); WHITE BLOOD COUNT 6.6 x10^3/uL (4.0-11.0)
--- NOTE | 2017-08-09 10:25 | RAD ---
Single view chest 08/09/2017 Clinical indication: Abnormal breath sounds. COMPARISON: None. FINDINGS: Hypoinflation of both lungs. Cardiac and mediastinal silhouettes are unremarkable. No pleural effusion, pneumothorax or focal consolidation. Right upper quadrant cholecystectomy clips. IMPRESSION: Hypoinflation of both lungs without evidence of CHF or consolidating pneumonia. Electronically signed by: Evan Crawford MD (08/09/2017 10:22 AM) [id number]
[2017-08-09 10:28] LABS: PHENY 10.6 mcg/mL (10.0-20.0)
[2017-08-09 10:29] LABS: ALBUMIN 2.9 g/dL (3.4-5.0); ALBUMIN/GLOBULIN RATIO 0.8 (1.0-1.7); ALK PHOS 79 U/L (46-116); ALT (SGPT) 25 U/L (16-63); ANION GAP 9 (6-14); AST (SGOT) 18 U/L (15-37); BLOOD UREA NITROGEN 14 mg/dL (8-26); BUN/CREATININE RATIO 14 (6-20); CALCIUM 9.1 mg/dL (8.5-10.1); CARBON DIOXIDE 25 mmol/L (21-32); CHLORIDE 106 mmol/L (98-107); GFR 77.9; GLUCOSE 92 mg/dL (70-99); POTASSIUM 4.5 mmol/L (3.5-5.1); SODIUM 140 mmol/L (136-145); TOTAL BILIRUBIN 0.1 mg/dL (0.2-1.0); TOTAL PROTEIN 6.7 g/dL (6.4-8.2)
[2017-08-09 10:31] LABS: VAL ACID 33 mcg/mL (50-100)
[2017-08-09 12:37] LABS: BACTERIA,URINE 0 /HPF (0-FEW); BILIRUBIN,URINE NEG (NEG); CLARITY,URINE CLEAR; COLOR,URINE YELLOW; GLUCOSE,URINE NEG (NEG); NITRITE,URINE NEG (NEG); RBC,URINE 0 /HPF (0-2); SQUAMOUS EPITHELIAL CELL,UR OCC /LPF; UROBILINOGEN,URINE 0.2 mg/dL (0.2 mg/dL); WBC,URINE 0 /HPF (0-4)
[2017-08-09 12:38] LABS: AMORPHOUS SEDIMENT,UR PRESENT /HPF
[2017-08-09] MEDS: cloZAPine 100 MG TABLET PO SCH ×2 (12:48→19:40)
[2017-08-09] MEDS: OXYBUTYNIN CHLORIDE 5 MG TABLET PO SCH ×3 (12:54→19:41)
[2017-08-09] MEDS: DIVALPROEX 125 MG CAP.SPRINK PO SCH ×2 (12:54→19:39)
[2017-08-09] MEDS: POLYETHYLENE GLYCOL 3350 17 GM PACKET. PO SCH (12:55)
[2017-08-09] MEDS: QUEtiapine 100 MG TABLET. PO SCH (12:55)
--- NOTE | 2017-08-09 14:57 | PDOC ---
PROGRESS NOTES Assessment 1. Hypotension: BP has returned to normal. Resume routine vitals. Labs check out ok. 2. Abd pain: Exam benign. Per staff, this is part of pt's somatic complex. Will monitor for worsening sx's. Pt just had a BM prior to evaluation. 3. Schizoaffective d/o: Per Dr. Rios. Problems: Plan of Care: see other orders Subjective I was asked to see pt because he was having low BP this morning. Per staff, there were no new meds although his depakote was increased a couple days ago. They also reported slight wheezing in his right lung, which was new. Rest of vitals were normal and pt was acting normally but sleepy. Objective Vital Signs Date Time Temp Pulse Resp B/P (MAP) Pulse Ox O2 Delivery O2 Flow Rate FiO2 08/09/17 10:48 82 105/60 (75) 08/09/17 09:15 98.2 20 98 08/09/17 06:10 Room Air Intake and Output 08/09/17 07:00 Intake Total 960 ml Balance 960 ml Intake Oral 960 ml Abdomen: Normal bowel sounds, Soft, No tenderness, No hepatospenomegaly, No masses Heart: Regular rate, No murmurs General: Alert, Cooperative, No acute distress HEENT: Atraumatic Lungs: Clear to auscultation, Normal air movement Neck: No JVD Neuro: Normal gait Skin: No rashes Review of Relevant I have reviewed the following items nora (where applicable) has been applied. Labs Laboratory Tests Test 08/09/17 06:09 08/09/17 09:57 08/09/17 11:45 White Blood Count 6.6 x10^3/uL (4.0-11.0) Red Blood Count 3.83 x10^6/uL (4.30-5.70) Hemoglobin 12.1 g/dL (13.0-17.5) Hematocrit 35.3 % (39.0-53.0) Mean Corpuscular Volume 92 fL (79-100) Mean Corpuscular Hemoglobin 32 pg (25-35) Mean Corpuscular Hemoglobin Concent 34 g/dL (31-37) Red Cell Distribution Width 13.1 % (11.5-14.5) Platelet Count 291 x10^3/uL (140-400) Neutrophils (%) (Auto) 47 % (31-73) Lymphocytes (%) (Auto) 40 % (24-48) Monocytes (%) (Auto) 9 % (0-9) Eosinophils (%) (Auto) 3 % (0-3) Basophils (%) (Auto) 1 % (0-3) Neutrophils # (Auto) 3.1 x10^3uL (1.8-7.7) Lymphocytes # (Auto) 2.6 x10^3/uL (1.0-4.8) Monocytes # (Auto) 0.6 x10^3/uL (0.0-1.1) Eosinophils # (Auto) 0.2 x10^3/uL (0.0-0.7) Basophils # (Auto) 0.1 x10^3/uL (0.0-0.2) Sodium Level 140 mmol/L (136-145) Potassium Level 4.5 mmol/L (3.5-5.1) Chloride Level 106 mmol/L (98-107) Carbon Dioxide Level 25 mmol/L (21-32) Anion Gap 9 (6-14) Blood Urea Nitrogen 14 mg/dL (8-26) Creatinine 1.0 mg/dL (0.7-1.3) Estimated GFR (Cockcroft-Gault) 77.9 BUN/Creatinine Ratio 14 (6-20) Glucose Level 92 mg/dL (70-99) Lactic Acid Level 1.2 mmol/L (0.4-2.0) Calcium Level 9.1 mg/dL (8.5-10.1) Total Bilirubin 0.1 mg/dL (0.2-1.0) Aspartate Amino Transf (AST/SGOT) 18 U/L (15-37) Alanine Aminotransferase (ALT/SGPT) 25 U/L (16-63) Alkaline Phosphatase 79 U/L (46-116) Total Protein 6.7 g/dL (6.4-8.2) Albumin 2.9 g/dL (3.4-5.0) Albumin/Globulin Ratio 0.8 (1.0-1.7) Phenytoin (Dilantin) Level 10.6 mcg/mL (10.0-20.0) Phenytoin Last Dose Date 08/08/2017 Phenytoin Last Dose Time 2100 Valproic Acid (Depakene) Level 33 mcg/mL (50-100) Valproic Acid Last Dose Date 08/09/17 Valproic Acid Last Dose Time 0900 Urine Collection Type Unknown Urine Color Yellow Urine Clarity Clear Urine pH 7.0 Urine Specific [place] 1.015 Urine Protein Neg (NEG-TRACE) Urine Glucose (UA) Neg mg/dL (NEG) Urine Ketones (Stick) Neg mg/dL (NEG) Urine Blood Neg (NEG) Urine Nitrite Neg (NEG) Urine Bilirubin Neg (NEG) Urine Urobilinogen Dipstick 0.2 mg/dL (0.2 mg/dL) Urine Leukocyte Esterase Neg (NEG) Urine RBC 0 /HPF (0-2) Urine WBC 0 /HPF (0-4) Urine Squamous Epithelial Cells Occ /LPF Urine Amorphous Sediment Present /HPF Urine Bacteria 0 /HPF (0-FEW) Medications Current Medications Valproic Acid (Depakene) 500 mg STAT PO Last administered on 07/30/17at 21:21; Start 07/30/17 at 20:49; Stop 08/01/17 at 15:23; Status DC Divalproex Sodium (Depakote Er) 1,000 mg QHS PO ; Start 07/31/17 at 21:00; Stop 07/31/17 at 21:00; Status DC Divalproex Sodium (Depakote Er) 500 mg DAILY PO ; Start 07/31/17 at 09:00; Stop 07/31/17 at 09:00; Status DC Lorazepam (Ativan) 1 mg PRN BID PRN PO ANXIETY / AGITATION Last administered on 08/08/17at 12:54; Start 07/30/17 at 23:00 Olanzapine (ZyPREXA) 10 mg DAILY PO ; Start 07/31/17 at 09:00; Stop 07/31/17 at 09:00; Status DC Olanzapine (ZyPREXA) 5 mg DAILY@1400 PO ; Start 07/31/17 at 14:00; Stop at 14:00; Status DC Risperidone (RisperDAL CONSTA) 25 mg Q2WKS IM ; Start 08/13/17 at 09:00; Status UNV Clozapine (Clozaril) 200 mg DAILY PO Last administered on 08/09/17at 12:48; Start 07/31/17 at 09:00 Clozapine (Clozaril) 500 mg QHS PO Last administered on 08/08/17 20:52; Start 07/31/17 at 21:00 Olanzapine (ZyPREXA) 20 mg QHS PO Last administered on 07/31/17 20:28; Start 07/31/17 at 21:00; Stop 08/01/17 at 09:51; Status DC Atorvastatin Calcium (Lipitor) 10 mg QHS PO ; Start 07/31/17 at 21:00; Stop 03/10 at 21:00; Status DC Phenytoin Sodium (Dilantin) 300 mg QHS PO Last administered on 08/08/17at 20:52 ; Start 07/31/17 at 21:00 Non-Formulary Medication (Sodium Fluoride (Prevident 5000)) 1 carlee BID DT ; Start 07/31/17 at 09:00; Stop 07/31/17 at 09:00; Status DC Oxybutynin Chloride (Ditropan) 5 mg [id number] PO Last administered on 08/09/17at 14 :02; Start 07/31/17 at 09:00 Quetiapine Fumarate (SEROquel) 100 mg BID PO Last administered on 08/08/17at 20: 51; Start 07/31/17 at 09:00 Acetaminophen (Tylenol) 500 mg PRN Q4HRS PRN PO PAIN Last administered on 04:49; Start 07/31/17 at 07:15 Levothyroxine Sodium (Synthroid) 200 mcg DAILY06 PO Last administered on at 05:46; Start 07/31/17 at 07:15 Fish Oil (Fish Oil) 1,000 mg DAILY PO Last administered on 07/31/17at 09:36; Start 07/31/17 at 09:00; Stop 08/01/17 at 09:51; Status DC Selenium Sulfide (Selsun) 1 carlee TWICEWEEKLY TP ; Start 07/31/17 at 07:30; Stop 07/31/17 at 14:29; Status DC Divalproex Sodium (Depakote Er) 1,000 mg QHS PO Last administered on 07/31/17at 20:26; Start 07/31/17 at 21:00; Stop 08/01/17 at 18:29; Status DC Atorvastatin Calcium (Lipitor) 10 mg QHS PO Last administered on 08/08/17at 20: 52; Start 07/31/17 at 21:00 Divalproex Sodium (Depakote Er) 500 mg DAILY PO Last administered on 08/01/17at 09:10; Start 07/31/17 at 09:00; Stop 08/01/17 at 09:51; Status DC Olanzapine (ZyPREXA) 10 mg DAILY PO Last administered on 08/01/17at 09:30; Start 07/31/17 at 09:00; Stop 08/01/17 at 09:51; Status DC Olanzapine (ZyPREXA) 5 mg DAILY@1400 PO Last administered on 07/31/17at 15:07; Start 07/31/17 at 14:00; Stop 08/01/17 at 09:51; Status DC Selenium Sulfide (Selsun) 1 carlee TWICEWEEKLY TP ; Start 07/31/17 at 14:29 Divalproex Sodium (Depakote Er) 750 mg DAILY PO ; Start 08/02/17 at 09:00; Stop 08/02/17 at 09:00; Status DC Divalproex Sodium (Depakote Sprinkles) 750 mg BID PO Last administered on at 09:21; Start 08/01/17 at 21:00; Stop 08/04/17 at 14:28; Status DC Al Hydroxide/Mg Hydroxide (Mylanta Plus Xs) 30 ml PRN AFTMEAL PRN PO DYSPEPSIA Last administered on 08/04/17at 22:16; Start 08/03/17 at 12:00 Magnesium Hydroxide (Milk Of Magnesia) 2,400 mg PRN DAILY PRN PO CONSTIPATION Last administered on 08/03/17at 17:16; Start 08/03/17 at 17:00 Divalproex Sodium (Depakote Sprinkles) 1,000 mg BID PO Last administered on at 07:51; Start 08/04/17 at 21:00; Stop 08/07/17 at 18:35; Status DC Polyethylene Glycol (miraLAX) 17 gm DAILY PO Last administered on 08/08/17at 07: 54; Start 08/05/17 at 09:00 Trazodone HCl (Desyrel) 100 mg QHS PO Last administered on 08/08/17at 20:52; Start 08/06/17 at 21:00 Trazodone HCl (Desyrel) 100 mg PRN QHS PRN PO INSOMNIA; Start 08/06/17 at 19:00 Divalproex Sodium (Depakote Sprinkles) 1,250 mg BID PO Last administered on at 20:51; Start 08/07/17 at 21:00 Active Scripts Active Reported Seroquel (Quetiapine Fumarate) 100 Mg Tablet 100 Mg PO BID Prevident 5000 (Sodium Fluoride) 100 Ml Gel..ml. 1 Carlee DT BID Selenium Sulfide 180 Ml Shampoo 1 Carlee TP TWICE WEEKLY Lorazepam 1 Mg Tablet 1 Mg PO PRN BID PRN Acetaminophen 500 Mg Tablet 500 Mg PO PRN Q4HRS PRN Risperdal Consta (Risperidone Microspheres) 25 Mg/2 Ml Disp.syrin 25 Mg IM Q2WKS Phenytoin 125 Mg/5 Ml Oral.susp 300 Mg PO QHS Zyprexa (Olanzapine) 20 Mg Tablet 20 Mg PO QHS Atorvastatin Calcium 10 Mg Tablet 10 Mg PO QHS Zyprexa (Olanzapine) 5 Mg Tablet 5 Mg PO DAILY@1400 Clozapine 200 Mg Tablet 500 Mg PO QHS Clozapine 200 Mg Tablet 200 Mg PO DAILY Detrol La (Tolterodine Tartrate) 2 Mg Cap.er.24h 2 Mg PO BID Depakote Er (Divalproex Sodium) 500 Mg Tab.er.24h 500 Mg PO DAILY Depakote Er (Divalproex Sodium) 500 Mg Tab.er.24h 1,000 Mg PO QHS [place] 3 1,000 Mg Softgel ([place]-3 Fatty Acids/Fish Oil) 1 Each Capsule 1,000 Mg PO DAILY Thera-M Tablet (Multivits,Ca,Minerals/Iron/Fa) 1 Each Tablet 1 Tab PO DAILY Vitamin D3 (Cholecalciferol (Vitamin D3)) 1,000 Unit Tablet 2,000 Unit PO DAILY Olanzapine 10 Mg Tablet 10 Mg PO DAILY Miralax (Polyethylene Glycol 3350) 119 Gm Powder 17 Gm PO DAILY Levothyroxine Sodium 200 Mcg Tablet 200 Mcg PO DAILY06 Pantoprazole Sodium 40 Mg Tablet.dr 40 Mg PO DAILY Vitals/I & O Vital Sign - Last 24 Hours 08/08/17 08/09/17 08/09/17 08/09/17 16:02 06:10 09:15 09:47 Temp 97.5 98.4 98.2 Pulse 88 70 71 Resp 20 18 20 B/P (MAP) 106/76 (86) 94/60 (71) 88/50 (63) 100/62 (75) Pulse Ox 100 96 98 O2 Delivery Room Air 08/09/17 08/09/17 08/09/17 10:20 10:31 10:48 Pulse 83 82 B/P (MAP) 105/70 (82) 105/60 (75) Intake and Output 08/08/17 08/08/17 08/09/17 15:00 23:00 07:00 Intake Total 360 ml 360 ml 240 ml Balance 360 ml 360 ml 240 ml SHEYLA MCCABE MD Aug 09, 2017 14:57
[2017-08-09] MEDS: PHENYTOIN SODIUM EXTENDED 100 MG CAPSULE PO SCH (19:39)
[2017-08-09] MEDS: traZODone 100 MG TABLET. PO SCH (19:40)
[2017-08-09] MEDS: ATORVASTATIN CALCIUM 10 MG TABLET. PO SCH (19:40)
[2017-08-09] MEDS: QUEtiapine 50 MG TABLET. PO SCH (19:41)
--- NOTE | 2017-08-09 20:40 | PN ---
DATE: 08/08/2017 This is a late entry for 08/08/2017 and covers the elements not covered in my initial note of 08/08/2017. SUBJECTIVE: I met with the patient in the evening of 08/08/2017. The patient has been somewhat anxious, restless, yelling out "God dammit." He has been demanding, non-redirectable per nursing staff, agitated after lunch and then did better. REVIEW OF SYSTEMS: No CV, , pulmonary, eye, ENT system symptoms on review. Reliability poor. MENTAL STATUS EXAM: Oriented to himself and situation. Speech coherent, rapid at times. Abstraction fair, computation impaired, language function intact, attention span short. Mood and affect remain somewhat labile. LABORATORY DATA: Reviewed. IMPRESSION: Schizoaffective disorder, bipolar type; intellectual disability. PLAN: Continue current psychotropics. Check CBC, ANC morning of 08/09/2017. Check valproic acid level on 08/18/2017. Adjust to reach a therapeutic level. MAN Suleman AYALA MD DR: ADALBETRO/garry JOB#: [id number] / [id number]
--- NOTE | 2017-08-09 20:55 | PDOC ---
Exam Note: Chad Note: Please also refer to the separate dictated note~for this date of service dictated separately.~Patient seen individually. Discussed the patient with Nursing staff reviewed the chart.~Reviewed interim history and current functioning. Reviewed vital signs,~Labs/ Radiology~and current medications noted below. Continue current treatment with the changes noted in the dictated addendum note Assessment: Vital Signs: Vital Signs Date Time Temp Pulse Resp B/P (MAP) Pulse Ox O2 Delivery O2 Flow Rate FiO2 08/09/17 18:20 97.7 114 20 159/72 (101) 98 08/09/17 15:14 Room Air I&O Intake and Output 08/09/17 07:00 Intake Total 960 ml Balance 960 ml Intake Oral 960 ml Labs: Laboratory Tests Test 08/09/17 06:09 08/09/17 09:57 08/09/17 11:45 White Blood Count 6.6 x10^3/uL (4.0-11.0) Red Blood Count 3.83 x10^6/uL (4.30-5.70) L Hemoglobin 12.1 g/dL (13.0-17.5) L Hematocrit 35.3 % (39.0-53.0) L Mean Corpuscular Volume 92 fL (79-100) Mean Corpuscular Hemoglobin 32 pg (25-35) Mean Corpuscular Hemoglobin Concent 34 g/dL (31-37) Red Cell Distribution Width 13.1 % (11.5-14.5) Platelet Count 291 x10^3/uL (140-400) Neutrophils (%) (Auto) 47 % (31-73) Lymphocytes (%) (Auto) 40 % (24-48) Monocytes (%) (Auto) 9 % (0-9) Eosinophils (%) (Auto) 3 % (0-3) Basophils (%) (Auto) 1 % (0-3) Neutrophils # (Auto) 3.1 x10^3uL (1.8-7.7) Lymphocytes # (Auto) 2.6 x10^3/uL (1.0-4.8) Monocytes # (Auto) 0.6 x10^3/uL (0.0-1.1) Eosinophils # (Auto) 0.2 x10^3/uL (0.0-0.7) Basophils # (Auto) 0.1 x10^3/uL (0.0-0.2) Sodium Level 140 mmol/L (136-145) Potassium Level 4.5 mmol/L (3.5-5.1) Chloride Level 106 mmol/L (98-107) Carbon Dioxide Level 25 mmol/L (21-32) Anion Gap 9 (6-14) Blood Urea Nitrogen 14 mg/dL (8-26) Creatinine 1.0 mg/dL (0.7-1.3) Estimated GFR (Cockcroft-Gault) 77.9 BUN/Creatinine Ratio 14 (6-20) Glucose Level 92 mg/dL (70-99) Lactic Acid Level 1.2 mmol/L (0.4-2.0) Calcium Level 9.1 mg/dL (8.5-10.1) Total Bilirubin 0.1 mg/dL (0.2-1.0) L Aspartate Amino Transferase (AST) 18 U/L (15-37) Alanine Aminotransferase (ALT) 25 U/L (16-63) Alkaline Phosphatase 79 U/L (46-116) Total Protein 6.7 g/dL (6.4-8.2) Albumin 2.9 g/dL (3.4-5.0) L Albumin/Globulin Ratio 0.8 (1.0-1.7) L Phenytoin (Dilantin) Level 10.6 mcg/mL (10.0-20.0) Phenytoin Last Dose Date 08/08/2017 Phenytoin Last Dose Time 2100 Valproic Acid Level 33 mcg/mL (50-100) L Valproic Acid Last Dose Date 08/09/17 Valproic Acid Last Dose Time 0900 Urine Collection Type Unknown Urine Color Yellow Urine Clarity Clear Urine pH 7.0 Urine Specific [place] 1.015 Urine Protein Neg (NEG-TRACE) Urine Glucose (UA) Neg mg/dL (NEG) Urine Ketones (Stick) Neg mg/dL (NEG) Urine Blood Neg (NEG) Urine Nitrite Neg (NEG) Urine Bilirubin Neg (NEG) Urine Urobilinogen Dipstick 0.2 mg/dL (0.2 mg/dL) Urine Leukocyte Esterase Neg (NEG) Urine RBC 0 /HPF (0-2) Urine WBC 0 /HPF (0-4) Urine Squamous Epithelial Cells Occ /LPF Urine Amorphous Sediment Present /HPF Urine Bacteria 0 /HPF (0-FEW) Current Medications: Meds: Current Medications Valproic Acid (Depakene) 500 mg STAT PO Last administered on 07/30/17at 21:21; Start 07/30/17 at 20:49; Stop 08/01/17 at 15:23; Status DC Divalproex Sodium (Depakote Er) 1,000 mg QHS PO ; Start 07/31/17 at 21:00; Stop 07/31/17 at 21:00; Status DC Divalproex Sodium (Depakote Er) 500 mg DAILY PO ; Start 07/31/17 at 09:00; Stop 07/31/17 at 09:00; Status DC Lorazepam (Ativan) 1 mg PRN BID PRN PO ANXIETY / AGITATION Last administered on 08/08/17at 12:54; Start 07/30/17 at 23:00 Olanzapine (ZyPREXA) 10 mg DAILY PO ; Start 07/31/17 at 09:00; Stop 07/31/17 at 09:00; Status DC Olanzapine (ZyPREXA) 5 mg DAILY@1400 PO ; Start 07/31/17 at 14:00; Stop at 14:00; Status DC Risperidone (RisperDAL CONSTA) 25 mg Q2WKS IM ; Start 08/13/17 at 09:00; Status UNV Clozapine (Clozaril) 200 mg DAILY PO Last administered on 08/09/17at 12:48; Start 07/31/17 at 09:00 Clozapine (Clozaril) 500 mg QHS PO Last administered on 08/09/17at 19:40; Start 07/31/17 at 21:00 Olanzapine (ZyPREXA) 20 mg QHS PO Last administered on 07/31/17at 20:28; Start 07/31/17 at 21:00; Stop 08/01/17 at 09:51; Status DC Atorvastatin Calcium (Lipitor) 10 mg QHS PO ; Start 07/31/17 at 21:00; Stop 03/10 at 21:00; Status DC Phenytoin Sodium (Dilantin) 300 mg QHS PO Last administered on 08/09/17at 19:39 ; Start 07/31/17 at 21:00 Non-Formulary Medication (Sodium Fluoride (Prevident 5000)) 1 carlee BID DT ; Start 07/31/17 at 09:00; Stop 07/31/17 at 09:00; Status DC Oxybutynin Chloride (Ditropan) 5 mg [id number] PO Last administered on 08/09/17at 19 :41; Start 07/31/17 at 09:00 Quetiapine Fumarate (SEROquel) 100 mg BID PO Last administered on 08/08/17at 20: 51; Start 07/31/17 at 09:00; Stop 08/09/17 at 18:03; Status DC Acetaminophen (Tylenol) 500 mg PRN Q4HRS PRN PO PAIN Last administered on at 04:49; Start 07/31/17 at 07:15 Levothyroxine Sodium (Synthroid) 200 mcg DAILY06 PO Last administered on at 05:46; Start 07/31/17 at 07:15 Fish Oil (Fish Oil) 1,000 mg DAILY PO Last administered on 07/31/17at 09:36; Start 07/31/17 at 09:00; Stop 08/01/17 at 09:51; Status DC Selenium Sulfide (Selsun) 1 carlee TWICEWEEKLY TP ; Start 07/31/17 at 07:30; Stop 07/31/17 at 14:29; Status DC Divalproex Sodium (Depakote Er) 1,000 mg QHS PO Last administered on 07/31/17at 20:26; Start 07/31/17 at 21:00; Stop 08/01/17 at 18:29; Status DC Atorvastatin Calcium (Lipitor) 10 mg QHS PO Last administered on 08/09/17at 19: 40; Start 07/31/17 at 21:00 Divalproex Sodium (Depakote Er) 500 mg DAILY PO Last administered on 08/01/17at 09:10; Start 07/31/17 at 09:00; Stop 08/01/17 at 09:51; Status DC Olanzapine (ZyPREXA) 10 mg DAILY PO Last administered on 08/01/17at 09:30; Start 07/31/17 at 09:00; Stop 08/01/17 at 09:51; Status DC Olanzapine (ZyPREXA) 5 mg DAILY@1400 PO Last administered on 07/31/17at 15:07; Start 07/31/17 at 14:00; Stop 08/01/17 at 09:51; Status DC Selenium Sulfide (Selsun) 1 carlee TWICEWEEKLY TP ; Start 07/31/17 at 14:29 Divalproex Sodium (Depakote Er) 750 mg DAILY PO ; Start 08/02/17 at 09:00; Stop 08/02/17 at 09:00; Status DC Divalproex Sodium (Depakote Sprinkles) 750 mg BID PO Last administered on at 09:21; Start 08/01/17 at 21:00; Stop 08/04/17 at 14:28; Status DC Al Hydroxide/Mg Hydroxide (Mylanta Plus Xs) 30 ml PRN AFTMEAL PRN PO DYSPEPSIA Last administered on 08/04/17at 22:16; Start 08/03/17 at 12:00 Magnesium Hydroxide (Milk Of Magnesia) 2,400 mg PRN DAILY PRN PO CONSTIPATION Last administered on 08/03/17at 17:16; Start 08/03/17 at 17:00 Divalproex Sodium (Depakote Sprinkles) 1,000 mg BID PO Last administered on at 07:51; Start 08/04/17 at 21:00; Stop 08/07/17 at 18:35; Status DC Polyethylene Glycol (miraLAX) 17 gm DAILY PO Last administered on 08/08/17at 07: 54; Start 08/05/17 at 09:00 Trazodone HCl (Desyrel) 100 mg QHS PO Last administered on 08/09/17at 19:40; Start 08/06/17 at 21:00 Trazodone HCl (Desyrel) 100 mg PRN QHS PRN PO INSOMNIA; Start 08/06/17 at 19:00 Divalproex Sodium (Depakote Sprinkles) 1,250 mg BID PO Last administered on at 20:51; Start 08/07/17 at 21:00; Stop 08/09/17 at 18:31; Status DC Quetiapine Fumarate (SEROquel) 50 mg BID PO Last administered on 08/09/17at 19: 41; Start 08/09/17 at 21:00 Divalproex Sodium (Depakote Sprinkles) 1,500 mg BID PO Last administered on at 19:39; Start 08/09/17 at 21:00 Active Scripts Active Reported Seroquel (Quetiapine Fumarate) 100 Mg Tablet 100 Mg PO BID Prevident 5000 (Sodium Fluoride) 100 Ml Gel..ml. 1 Carlee DT BID Selenium Sulfide 180 Ml Shampoo 1 Carlee TP TWICE WEEKLY Lorazepam 1 Mg Tablet 1 Mg PO PRN BID PRN Acetaminophen 500 Mg Tablet 500 Mg PO PRN Q4HRS PRN Risperdal Consta (Risperidone Microspheres) 25 Mg/2 Ml Disp.syrin 25 Mg IM Q2WKS Phenytoin 125 Mg/5 Ml Oral.susp 300 Mg PO QHS Zyprexa (Olanzapine) 20 Mg Tablet 20 Mg PO QHS Atorvastatin Calcium 10 Mg Tablet 10 Mg PO QHS Zyprexa (Olanzapine) 5 Mg Tablet 5 Mg PO DAILY@1400 Clozapine 200 Mg Tablet 500 Mg PO QHS Clozapine 200 Mg Tablet 200 Mg PO DAILY Detrol La (Tolterodine Tartrate) 2 Mg Cap.er.24h 2 Mg PO BID Depakote Er (Divalproex Sodium) 500 Mg Tab.er.24h 500 Mg PO DAILY Depakote Er (Divalproex Sodium) 500 Mg Tab.er.24h 1,000 Mg PO QHS [place] 3 1,000 Mg Softgel ([place]-3 Fatty Acids/Fish Oil) 1 Each Capsule 1,000 Mg PO DAILY Thera-M Tablet (Multivits,Ca,Minerals/Iron/Fa) 1 Each Tablet 1 Tab PO DAILY Vitamin D3 (Cholecalciferol (Vitamin D3)) 1,000 Unit Tablet 2,000 Unit PO DAILY Olanzapine 10 Mg Tablet 10 Mg PO DAILY Miralax (Polyethylene Glycol 3350) 119 Gm Powder 17 Gm PO DAILY Levothyroxine Sodium 200 Mcg Tablet 200 Mcg PO DAILY06 Pantoprazole Sodium 40 Mg Tablet. 40 Mg PO DAILY I have reviewed the current psychotropics carefully including drug interactions. Risk benefit ratio favors no change other than as noted in my dictated progress note. Diagnosis: Problems: (1) Dementia in Alzheimer's disease with delusions (2) Impulse control disorder (3) Schizoaffective disorder, chronic condition with acute exacerbation (4) Borderline intellectual disability STEVEN AYALA MD Aug 09, 2017 20:55
[2017-08-09] MEDS: LORazepam 1 MG TABLET PO PRN (22:01)
--- NOTE | 2017-08-09 22:16 | EKG ---
[address] [address] Test Date: 2017-08-09 Test Time: 22:13:23 Pat Name: LATOSHA GLEZ Department: Room: [address] [place] [address] Gender: M [employer] Supervisor: TAYLOR : 1965 Requested By: SHEYLA MCCABE Order Number: [id number] Reading MD: Noah Spencer MD Measurements Intervals Patrick Rate: 121 P: 31 MT: 170 QRS: 6 QRSD: 78 T: 62 QT: 310 QTc: 443 Interpretive Statements SINUS TACHYCARDIA BASELINE ARTIFACT Electronically Signed On 08-26-2017 14:40:06 CDT by Noah Spencer MD
[2017-08-10 06:01] VITALS: BP 104/60
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
[2017-08-10] MEDS: POLYETHYLENE GLYCOL 3350 17 GM PACKET. PO SCH (07:34)
[2017-08-10] MEDS: LEVOTHYROXINE 100 MCG TABLET PO SCH (07:34)
[2017-08-10] MEDS: OXYBUTYNIN CHLORIDE 5 MG TABLET PO SCH ×3 (09:24→20:11)
[2017-08-10] MEDS: DIVALPROEX 125 MG CAP.SPRINK PO SCH ×2 (09:24→20:10)
[2017-08-10] MEDS: cloZAPine 100 MG TABLET PO SCH ×2 (09:24→20:11)
[2017-08-10] MEDS: QUEtiapine 50 MG TABLET. PO SCH ×2 (09:24→20:11)
[2017-08-10 09:33] LABS: BASO # 0.1 x10^3/uL (0.0-0.2); BASO % 1 % (0-3); EOS # 0.2 x10^3/uL (0.0-0.7); EOS % 4 % (0-3); HEMATOCRIT 35.1 % (39.0-53.0); HEMOGLOBIN 11.9 g/dL (13.0-17.5); LYMPH # 1.5 x10^3/uL (1.0-4.8); LYMPH % 34 % (24-48); MEAN CORPUSCULAR HEMOGLOBIN 31 pg (25-35); MEAN CORPUSCULAR HGB CONC 34 g/dL (31-37); MEAN CORPUSCULAR VOLUME 92 fL (79-100); MONO # 0.4 x10^3/uL (0.0-1.1); MONO % 9 % (0-9); NEUT # 2.3 x10^3uL (1.8-7.7); NEUT % 52 % (31-73); PLATELET COUNT 275 x10^3/uL (140-400); WHITE BLOOD COUNT 4.4 x10^3/uL (4.0-11.0)
[2017-08-10 09:44] LABS: ALBUMIN 2.8 g/dL (3.4-5.0); ALBUMIN/GLOBULIN RATIO 0.7 (1.0-1.7); ALK PHOS 79 U/L (46-116); ALT (SGPT) 24 U/L (16-63); ANION GAP 11 (6-14); AST (SGOT) 17 U/L (15-37); BLOOD UREA NITROGEN 9 mg/dL (8-26); BUN/CREATININE RATIO 10 (6-20); CALCIUM 8.6 mg/dL (8.5-10.1); CARBON DIOXIDE 25 mmol/L (21-32); CHLORIDE 105 mmol/L (98-107); CREATININE 0.9 mg/dL (0.7-1.3); GFR 87.9; GLUCOSE 175 mg/dL (70-99); POTASSIUM 3.6 mmol/L (3.5-5.1); SODIUM 141 mmol/L (136-145); TOTAL BILIRUBIN 0.1 mg/dL (0.2-1.0); TOTAL PROTEIN 6.6 g/dL (6.4-8.2)
[2017-08-10 09:49] LABS: VAL ACID 27 mcg/mL (50-100)
--- NOTE | 2017-08-10 14:32 | PN ---
DATE: 08/09/2017 PSYCHIATRIC PROGRESS NOTE This is a late entry 08/09/2017, covers elements not covered in my initial note 08/09/2017. SUBJECTIVE: I met with the patient in the evening of 08/09/2017. Overall, the patient has had elevated heart rate and other somatic symptoms. We will defer to Dr. Fitzgerald. He remains somewhat labile in his mood, paranoid, had a tic-like movement, which we will reassess once his medical condition is addressed. REVIEW OF SYSTEMS: Positive for feeling sick. No CV, , pulmonary, eye system symptoms on review other than above. MENTAL STATUS EXAM: Oriented to himself and situation. Speech coherent, rapid at times. Abstraction fair, computation impaired, language function intact, attention span short, mood and affect remain somewhat labile. LABORATORY DATA: Reviewed. IMPRESSION: Unchanged from initial note. PLAN: Valproic acid level is 33, subtherapeutic. We will increase Depakote Sprinkles from 1250 b.i.d. to 1500 mg b.i.d. Check CBC, CMP, valproic acid level in 3 days. Absolute neutrophil count is unremarkable and this is being monitored for Clozaril. STEVEN AYALA MD DR: ADALBERTO/garry JOB#: [id number] / [id number]
[2017-08-10 18:10] VITALS: BP 143/89
[2017-08-10] MEDS: PHENYTOIN SODIUM EXTENDED 100 MG CAPSULE PO SCH (20:10)
[2017-08-10] MEDS: ATORVASTATIN CALCIUM 10 MG TABLET. PO SCH (20:10)
[2017-08-10] MEDS: traZODone 100 MG TABLET. PO SCH (20:11)
--- NOTE | 2017-08-10 20:45 | PDOC ---
Exam Note: Chad Note: Please also refer to the separate dictated note~for this date of service dictated separately.~Patient seen individually. Discussed the patient with Nursing staff reviewed the chart.~Reviewed interim history and current functioning. Reviewed vital signs,~Labs/ Radiology~and current medications noted below. Continue current treatment with the changes noted in the dictated addendum note Assessment: Vital Signs: Vital Signs Date Time Temp Pulse Resp B/P (MAP) Pulse Ox O2 Delivery O2 Flow Rate FiO2 08/10/17 18:10 97.8 82 16 143/89 (107) 98 08/09/17 15:14 Room Air I&O Intake and Output 08/10/17 07:00 Intake Total 720 ml Balance 720 ml Intake Oral 720 ml # Voids 3 # Bowel Movements 1 Labs: Laboratory Tests Test 08/10/17 09:16 White Blood Count 4.4 x10^3/uL (4.0-11.0) Red Blood Count 3.80 x10^6/uL (4.30-5.70) L Hemoglobin 11.9 g/dL (13.0-17.5) L Hematocrit 35.1 % (39.0-53.0) L Mean Corpuscular Volume 92 fL (79-100) Mean Corpuscular Hemoglobin 31 pg (25-35) Mean Corpuscular Hemoglobin Concent 34 g/dL (31-37) Red Cell Distribution Width 13.0 % (11.5-14.5) Platelet Count 275 x10^3/uL (140-400) Neutrophils (%) (Auto) 52 % (31-73) Lymphocytes (%) (Auto) 34 % (24-48) Monocytes (%) (Auto) 9 % (0-9) Eosinophils (%) (Auto) 4 % (0-3) H Basophils (%) (Auto) 1 % (0-3) Neutrophils # (Auto) 2.3 x10^3uL (1.8-7.7) Lymphocytes # (Auto) 1.5 x10^3/uL (1.0-4.8) Monocytes # (Auto) 0.4 x10^3/uL (0.0-1.1) Eosinophils # (Auto) 0.2 x10^3/uL (0.0-0.7) Basophils # (Auto) 0.1 x10^3/uL (0.0-0.2) Sodium Level 141 mmol/L (136-145) Potassium Level 3.6 mmol/L (3.5-5.1) Chloride Level 105 mmol/L (98-107) Carbon Dioxide Level 25 mmol/L (21-32) Anion Gap 11 (6-14) Blood Urea Nitrogen 9 mg/dL (8-26) Creatinine 0.9 mg/dL (0.7-1.3) Estimated GFR (Cockcroft-Gault) 87.9 BUN/Creatinine Ratio 10 (6-20) Glucose Level 175 mg/dL (70-99) H Calcium Level 8.6 mg/dL (8.5-10.1) Total Bilirubin 0.1 mg/dL (0.2-1.0) L Aspartate Amino Transferase (AST) 17 U/L (15-37) Alanine Aminotransferase (ALT) 24 U/L (16-63) Alkaline Phosphatase 79 U/L (46-116) Total Protein 6.6 g/dL (6.4-8.2) Albumin 2.8 g/dL (3.4-5.0) L Albumin/Globulin Ratio 0.7 (1.0-1.7) L Valproic Acid Level 27 mcg/mL (50-100) L Valproic Acid Last Dose Date 08/09/2017 Valproic Acid Last Dose Time 2100 Current Medications: Meds: Current Medications Valproic Acid (Depakene) 500 mg STAT PO Last administered on 07/30/17at 21:21; Start 07/30/17 at 20:49; Stop 08/01/17 at 15:23; Status DC Divalproex Sodium (Depakote Er) 1,000 mg QHS PO ; Start 07/31/17 at 21:00; Stop 07/31/17 at 21:00; Status DC Divalproex Sodium (Depakote Er) 500 mg DAILY PO ; Start 07/31/17 at 09:00; Stop 07/31/17 at 09:00; Status DC Lorazepam (Ativan) 1 mg PRN BID PRN PO ANXIETY / AGITATION Last administered on 08/09/17at 22:01; Start 07/30/17 at 23:00 Olanzapine (ZyPREXA) 10 mg DAILY PO ; Start 07/31/17 at 09:00; Stop 07/31/17 at 09:00; Status DC Olanzapine (ZyPREXA) 5 mg DAILY@1400 PO ; Start 07/31/17 at 14:00; Stop at 14:00; Status DC Risperidone (RisperDAL CONSTA) 25 mg Q2WKS IM ; Start 08/13/17 at 09:00; Status UNV Clozapine (Clozaril) 200 mg DAILY PO Last administered on 08/10/17at 09:24; Start 07/31/17 at 09:00 Clozapine (Clozaril) 500 mg QHS PO Last administered on 08/10/17at 20:11; Start 07/31/17 at 21:00 Olanzapine (ZyPREXA) 20 mg QHS PO Last administered on 07/31/17 20:28; Start 07/31/17 at 21:00; Stop 08/01/17 at 09:51; Status DC Atorvastatin Calcium (Lipitor) 10 mg QHS PO ; Start 07/31/17 at 21:00; Stop 03/10 at 21:00; Status DC Phenytoin Sodium (Dilantin) 300 mg QHS PO Last administered on 08/10/17at 20:10 ; Start 07/31/17 at 21:00 Non-Formulary Medication (Sodium Fluoride (Prevident 5000)) 1 carlee BID DT ; Start 07/31/17 at 09:00; Stop 07/31/17 at 09:00; Status DC Oxybutynin Chloride (Ditropan) 5 mg [id number] PO Last administered on 08/10/17at 20 :11; Start 07/31/17 at 09:00 Quetiapine Fumarate (SEROquel) 100 mg BID PO Last administered on 08/08/17at 20: 51; Start 07/31/17 at 09:00; Stop 08/09/17 at 18:03; Status DC Acetaminophen (Tylenol) 500 mg PRN Q4HRS PRN PO PAIN Last administered on at 04:49; Start 07/31/17 at 07:15 Levothyroxine Sodium (Synthroid) 200 mcg DAILY06 PO Last administered on at 07:34; Start 07/31/17 at 07:15 Fish Oil (Fish Oil) 1,000 mg DAILY PO Last administered on 07/31/17at 09:36; Start 07/31/17 at 09:00; Stop 08/01/17 at 09:51; Status DC Selenium Sulfide (Selsun) 1 carlee TWICEWEEKLY TP ; Start 07/31/17 at 07:30; Stop 07/31/17 at 14:29; Status DC Divalproex Sodium (Depakote Er) 1,000 mg QHS PO Last administered on 07/31/17at 20:26; Start 07/31/17 at 21:00; Stop 08/01/17 at 18:29; Status DC Atorvastatin Calcium (Lipitor) 10 mg QHS PO Last administered on 08/10/17at 20: 10; Start 07/31/17 at 21:00 Divalproex Sodium (Depakote Er) 500 mg DAILY PO Last administered on 08/01/17at 09:10; Start 07/31/17 at 09:00; Stop 08/01/17 at 09:51; Status DC Olanzapine (ZyPREXA) 10 mg DAILY PO Last administered on 08/01/17at 09:30; Start 07/31/17 at 09:00; Stop 08/01/17 at 09:51; Status DC Olanzapine (ZyPREXA) 5 mg DAILY@1400 PO Last administered on 07/31/17at 15:07; Start 07/31/17 at 14:00; Stop 08/01/17 at 09:51; Status DC Selenium Sulfide (Selsun) 1 carlee TWICEWEEKLY TP ; Start 07/31/17 at 14:29 Divalproex Sodium (Depakote Er) 750 mg DAILY PO ; Start 08/02/17 at 09:00; Stop 08/02/17 at 09:00; Status DC Divalproex Sodium (Depakote Sprinkles) 750 mg BID PO Last administered on at 09:21; Start 08/01/17 at 21:00; Stop 08/04/17 at 14:28; Status DC Al Hydroxide/Mg Hydroxide (Mylanta Plus Xs) 30 ml PRN AFTMEAL PRN PO DYSPEPSIA Last administered on 08/04/17at 22:16; Start 08/03/17 at 12:00 Magnesium Hydroxide (Milk Of Magnesia) 2,400 mg PRN DAILY PRN PO CONSTIPATION Last administered on 08/03/17at 17:16; Start 08/03/17 at 17:00 Divalproex Sodium (Depakote Sprinkles) 1,000 mg BID PO Last administered on at 07:51; Start 08/04/17 at 21:00; Stop 08/07/17 at 18:35; Status DC Polyethylene Glycol (miraLAX) 17 gm DAILY PO Last administered on 08/10/17at 07: 34; Start 08/05/17 at 09:00 Trazodone HCl (Desyrel) 100 mg QHS PO Last administered on 08/10/17at 20:11; Start 08/06/17 at 21:00 Trazodone HCl (Desyrel) 100 mg PRN QHS PRN PO INSOMNIA; Start 08/06/17 at 19:00 Divalproex Sodium (Depakote Sprinkles) 1,250 mg BID PO Last administered on at 20:51; Start 08/07/17 at 21:00; Stop 08/09/17 at 18:31; Status DC Quetiapine Fumarate (SEROquel) 50 mg BID PO Last administered on 08/10/17at 20: 11; Start 08/09/17 at 21:00 Divalproex Sodium (Depakote Sprinkles) 1,500 mg BID PO Last administered on at 20:10; Start 08/09/17 at 21:00 Active Scripts Active Reported Seroquel (Quetiapine Fumarate) 100 Mg Tablet 100 Mg PO BID Prevident 5000 (Sodium Fluoride) 100 Ml Gel..ml. 1 Carlee DT BID Selenium Sulfide 180 Ml Shampoo 1 Carlee TP TWICE WEEKLY Lorazepam 1 Mg Tablet 1 Mg PO PRN BID PRN Acetaminophen 500 Mg Tablet 500 Mg PO PRN Q4HRS PRN Risperdal Consta (Risperidone Microspheres) 25 Mg/2 Ml Disp.syrin 25 Mg IM Q2WKS Phenytoin 125 Mg/5 Ml Oral.susp 300 Mg PO QHS Zyprexa (Olanzapine) 20 Mg Tablet 20 Mg PO QHS Atorvastatin Calcium 10 Mg Tablet 10 Mg PO QHS Zyprexa (Olanzapine) 5 Mg Tablet 5 Mg PO DAILY@1400 Clozapine 200 Mg Tablet 500 Mg PO QHS Clozapine 200 Mg Tablet 200 Mg PO DAILY Detrol La (Tolterodine Tartrate) 2 Mg Cap.er.24h 2 Mg PO BID Depakote Er (Divalproex Sodium) 500 Mg Tab.er.24h 500 Mg PO DAILY Depakote Er (Divalproex Sodium) 500 Mg Tab.er.24h 1,000 Mg PO QHS Calhan 3 1,000 Mg Softgel (Calhan-3 Fatty Acids/Fish Oil) 1 Each Capsule 1,000 Mg PO DAILY Thera-M Tablet (Multivits,Ca,Minerals/Iron/Fa) 1 Each Tablet 1 Tab PO DAILY Vitamin D3 (Cholecalciferol (Vitamin D3)) 1,000 Unit Tablet 2,000 Unit PO DAILY Olanzapine 10 Mg Tablet 10 Mg PO DAILY Miralax (Polyethylene Glycol 3350) 119 Gm Powder 17 Gm PO DAILY Levothyroxine Sodium 200 Mcg Tablet 200 Mcg PO DAILY06 Pantoprazole Sodium 40 Mg Tablet.dr 40 Mg PO DAILY I have reviewed the current psychotropics carefully including drug interactions. Risk benefit ratio favors no change other than as noted in my dictated progress note. Diagnosis: Problems: (1) Dementia in Alzheimer's disease with delusions (2) Impulse control disorder (3) Schizoaffective disorder, chronic condition with acute exacerbation (4) Borderline intellectual disability STEVEN AYALA MD Aug 10, 2017 20:45
[2017-08-10] MEDS: traZODone 100 MG TABLET. PO PRN (23:30)
[2017-08-11] MEDS: LEVOTHYROXINE 100 MCG TABLET PO SCH (05:09)
[2017-08-11 05:48] VITALS: BP 119/73
[2017-08-11] MEDS: cloZAPine 100 MG TABLET PO SCH ×2 (07:46→19:57)
[2017-08-11] MEDS: OXYBUTYNIN CHLORIDE 5 MG TABLET PO SCH ×3 (07:46→19:58)
[2017-08-11] MEDS: POLYETHYLENE GLYCOL 3350 17 GM PACKET. PO SCH (07:46)
[2017-08-11] MEDS: DIVALPROEX 125 MG CAP.SPRINK PO SCH ×2 (07:46→19:56)
[2017-08-11] MEDS: ACETAMINOPHEN 500 MG TABLET PO PRN ×2 (07:46→16:43)
[2017-08-11] MEDS: QUEtiapine 50 MG TABLET. PO SCH ×2 (07:46→19:57)
[2017-08-11] MEDS: MAG HYDROX/AL HYDROX/SIMETH 30 ML ORAL.SUSP PO PRN ×2 (15:16→18:15)
[2017-08-11 15:55] VITALS: BP 115/71
[2017-08-11] MEDS ORDERED: IBUP400T18 PO (16:08)
[2017-08-11] MEDS ORDERED: ARIP5TAB13 PO (16:08)
[2017-08-11] MEDS ORDERED: OLAN5TAB9 PO (16:08)
[2017-08-11] MEDS ORDERED: METH10TA10 PO (16:08)
[2017-08-11] MEDS ORDERED: ARIP400S IM (16:08)
[2017-08-11] MEDS ORDERED: FENO160T PO (16:08)
[2017-08-11] MEDS ORDERED: LORA2VIA IM (16:08)
[2017-08-11] MEDS ORDERED: PARO20TA3 PO (16:08)
[2017-08-11] MEDS: LORazepam 1 MG TABLET PO PRN (18:44)
--- NOTE | 2017-08-11 19:32 | PN ---
DATE: 08/10/2017 This is a late entry for 08/10/2017 and covers the elements not covered in my initial note of 08/10/2017. SUBJECTIVE: I met with the patient in the evening of 08/10/2017. The patient slept 4-1/2 hours previous evening, takes his medications whole, quite demanding, labile, loud at times, obsessive, fixated, repeatedly following me around the unit, wanting me to adjust his bed. Nursing staff did intervene and when they talk to him in a calm manner, he does better. He puts himself on the floor in the hallway in the morning. REVIEW OF SYSTEMS: No CV, , pulmonary, eye system symptoms on review, vague somatic symptoms. MENTAL STATUS EXAM: Oriented to himself and situation. Speech coherent, rapid, loud at times. Abstraction fair, computation impaired, language function intact, attention span short. Mood and affect remain somewhat labile. LABORATORY DATA: Reviewed. IMPRESSION: Unchanged from initial note, schizoaffective disorder, bipolar type, mixed with psychotic features, intellectual disability. PLAN: Valproic acid repeat is 27. We will adjust the Depakote to reach a therapeutic level. Continue Clozaril. Adjust the Seroquel downward till discontinued. Rest unchanged. MAN Suleman AYALA MD DR: ADALBERTO/garry JOB#: [id number] / [id number]
[2017-08-11] MEDS: ATORVASTATIN CALCIUM 10 MG TABLET. PO SCH (19:57)
[2017-08-11] MEDS: PHENYTOIN SODIUM EXTENDED 100 MG CAPSULE PO SCH (19:57)
[2017-08-11] MEDS: traZODone 100 MG TABLET. PO SCH (19:57)
--- NOTE | 2017-08-11 20:53 | PDOC ---
Exam Note: Chad Note: Please also refer to the separate dictated note~for this date of service dictated separately.~Patient seen individually. Discussed the patient with Nursing staff reviewed the chart.~Reviewed interim history and current functioning. Reviewed vital signs,~Labs/ Radiology~and current medications noted below. Continue current treatment with the changes noted in the dictated addendum note Assessment: Vital Signs: Vital Signs Date Time Temp Pulse Resp B/P (MAP) Pulse Ox O2 Delivery O2 Flow Rate FiO2 08/11/17 15:55 97.2 95 20 115/71 (86) 98 08/09/17 15:14 Room Air I&O Intake and Output 08/11/17 07:00 Intake Total 1180 ml Balance 1180 ml Intake Oral 1180 ml # Voids 2 Current Medications: Meds: Current Medications Valproic Acid (Depakene) 500 mg STAT PO Last administered on 07/30/17at 21:21; Start 07/30/17 at 20:49; Stop 08/01/17 at 15:23; Status DC Divalproex Sodium (Depakote Er) 1,000 mg QHS PO ; Start 07/31/17 at 21:00; Stop 07/31/17 at 21:00; Status DC Divalproex Sodium (Depakote Er) 500 mg DAILY PO ; Start 07/31/17 at 09:00; Stop 07/31/17 at 09:00; Status DC Lorazepam (Ativan) 1 mg PRN BID PRN PO ANXIETY / AGITATION Last administered on 08/11/17at 18:44; Start 07/30/17 at 23:00 Olanzapine (ZyPREXA) 10 mg DAILY PO ; Start 07/31/17 at 09:00; Stop 07/31/17 at 09:00; Status DC Olanzapine (ZyPREXA) 5 mg DAILY@1400 PO ; Start 07/31/17 at 14:00; Stop at 14:00; Status DC Risperidone (RisperDAL CONSTA) 25 mg Q2WKS IM ; Start 08/13/17 at 09:00; Status UNV Clozapine (Clozaril) 200 mg DAILY PO Last administered on 08/11/17at 07:46; Start 07/31/17 at 09:00 Clozapine (Clozaril) 500 mg QHS PO Last administered on 08/11/17at 19:57; Start 07/31/17 at 21:00 Olanzapine (ZyPREXA) 20 mg QHS PO Last administered on 07/31/17at 20:28; Start 07/31/17 at 21:00; Stop 08/01/17 at 09:51; Status DC Atorvastatin Calcium (Lipitor) 10 mg QHS PO ; Start 07/31/17 at 21:00; Stop 03/10 at 21:00; Status DC Phenytoin Sodium (Dilantin) 300 mg QHS PO Last administered on 08/11/17at 19:57 ; Start 07/31/17 at 21:00 Non-Formulary Medication (Sodium Fluoride (Prevident 5000)) 1 carlee BID DT ; Start 07/31/17 at 09:00; Stop 07/31/17 at 09:00; Status DC Oxybutynin Chloride (Ditropan) 5 mg [id number] PO Last administered on 08/11/17at 19 :58; Start 07/31/17 at 09:00 Quetiapine Fumarate (SEROquel) 100 mg BID PO Last administered on 08/08/17at 20: 51; Start 07/31/17 at 09:00; Stop 08/09/17 at 18:03; Status DC Acetaminophen (Tylenol) 500 mg PRN Q4HRS PRN PO PAIN Last administered on at 16:43; Start 07/31/17 at 07:15 Levothyroxine Sodium (Synthroid) 200 mcg DAILY06 PO Last administered on at 05:09; Start 07/31/17 at 07:15 Fish Oil (Fish Oil) 1,000 mg DAILY PO Last administered on 07/31/17at 09:36; Start 07/31/17 at 09:00; Stop 08/01/17 at 09:51; Status DC Selenium Sulfide (Selsun) 1 carlee TWICEWEEKLY TP ; Start 07/31/17 at 07:30; Stop 07/31/17 at 14:29; Status DC Divalproex Sodium (Depakote Er) 1,000 mg QHS PO Last administered on 07/31/17at 20:26; Start 07/31/17 at 21:00; Stop 08/01/17 at 18:29; Status DC Atorvastatin Calcium (Lipitor) 10 mg QHS PO Last administered on 08/11/17at 19: 57; Start 07/31/17 at 21:00 Divalproex Sodium (Depakote Er) 500 mg DAILY PO Last administered on 08/01/17at 09:10; Start 07/31/17 at 09:00; Stop 08/01/17 at 09:51; Status DC Olanzapine (ZyPREXA) 10 mg DAILY PO Last administered on 08/01/17at 09:30; Start 07/31/17 at 09:00; Stop 08/01/17 at 09:51; Status DC Olanzapine (ZyPREXA) 5 mg DAILY@1400 PO Last administered on 07/31/17at 15:07; Start 07/31/17 at 14:00; Stop 08/01/17 at 09:51; Status DC Selenium Sulfide (Selsun) 1 carlee TWICEWEEKLY TP ; Start 07/31/17 at 14:29 Divalproex Sodium (Depakote Er) 750 mg DAILY PO ; Start 08/02/17 at 09:00; Stop 08/02/17 at 09:00; Status DC Divalproex Sodium (Depakote Sprinkles) 750 mg BID PO Last administered on at 09:21; Start 08/01/17 at 21:00; Stop 08/04/17 at 14:28; Status DC Al Hydroxide/Mg Hydroxide (Mylanta Plus Xs) 30 ml PRN AFTMEAL PRN PO DYSPEPSIA Last administered on 08/11/17at 18:15; Start 08/03/17 at 12:00 Magnesium Hydroxide (Milk Of Magnesia) 2,400 mg PRN DAILY PRN PO CONSTIPATION Last administered on 08/03/17at 17:16; Start 08/03/17 at 17:00 Divalproex Sodium (Depakote Sprinkles) 1,000 mg BID PO Last administered on at 07:51; Start 08/04/17 at 21:00; Stop 08/07/17 at 18:35; Status DC Polyethylene Glycol (miraLAX) 17 gm DAILY PO Last administered on 08/11/17at 07: 46; Start 08/05/17 at 09:00 Trazodone HCl (Desyrel) 100 mg QHS PO Last administered on 08/11/17at 19:57; Start 08/06/17 at 21:00 Trazodone HCl (Desyrel) 100 mg PRN QHS PRN PO INSOMNIA Last administered on at 23:30; Start 08/06/17 at 19:00 Divalproex Sodium (Depakote Sprinkles) 1,250 mg BID PO Last administered on at 20:51; Start 08/07/17 at 21:00; Stop 08/09/17 at 18:31; Status DC Quetiapine Fumarate (SEROquel) 50 mg BID PO Last administered on 08/11/17at 19: 57; Start 08/09/17 at 21:00 Divalproex Sodium (Depakote Sprinkles) 1,500 mg BID PO Last administered on at 19:56; Start 08/09/17 at 21:00 Trazodone HCl (Desyrel) 25 mg TID@0900,1300,1700 PO ; Start 08/12/17 at 09:00 Active Scripts Active Reported Ibuprofen 400 Mg Tablet 400 Mg PO PRN Q4HRS PRN MDD 1200mg/24hrs Lorazepam 2 Mg/1 Ml Vial 1 Mg IM BID PRN Abilify Maintena (Aripiprazole) 400 Mg Suser.vial 400 Mg IM Q4WK Next dose due 08/26/17 Paroxetine Hcl 20 Mg Tablet 10 Mg PO DAILY Abilify (Aripiprazole) 5 Mg Tablet 5 Mg PO DAILY Fenofibrate 160 Mg Tablet 160 Mg PO QHS Olanzapine 5 Mg Tablet 5 Mg PO DAILY@1400 5mg PO daily at 14:00 Methylphenidate Hcl 10 Mg Tablet 10 Mg PO BID@0900,1300 Seroquel (Quetiapine Fumarate) 100 Mg Tablet 100 Mg PO BID Prevident 5000 (Sodium Fluoride) 100 Ml Gel..ml. 1 Carlee DT BID Selenium Sulfide 180 Ml Shampoo 1 Carlee TP TWICE WEEKLY Lorazepam 1 Mg Tablet 1 Mg PO PRN BID PRN Acetaminophen 500 Mg Tablet 500 Mg PO PRN Q4HRS PRN Risperdal Consta (Risperidone Microspheres) 25 Mg/2 Ml Disp.syrin 25 Mg IM Q2WKS Phenytoin 125 Mg/5 Ml Oral.susp 300 Mg PO QHS Zyprexa (Olanzapine) 20 Mg Tablet 20 Mg PO QHS Atorvastatin Calcium 10 Mg Tablet 10 Mg PO QHS Zyprexa (Olanzapine) 5 Mg Tablet 5 Mg PO DAILY@1400 Clozapine 200 Mg Tablet 500 Mg PO QHS Clozapine 200 Mg Tablet 200 Mg PO DAILY Detrol La (Tolterodine Tartrate) 2 Mg Cap.er.24h 2 Mg PO BID Depakote Er (Divalproex Sodium) 500 Mg Tab.er.24h 500 Mg PO DAILY Depakote Er (Divalproex Sodium) 500 Mg Tab.er.24h 1,000 Mg PO QHS Destrehan 3 1,000 Mg Softgel (Destrehan-3 Fatty Acids/Fish Oil) 1 Each Capsule 1,000 Mg PO DAILY Thera-M Tablet (Multivits,Ca,Minerals/Iron/Fa) 1 Each Tablet 1 Tab PO DAILY Vitamin D3 (Cholecalciferol (Vitamin D3)) 1,000 Unit Tablet 2,000 Unit PO DAILY Olanzapine 10 Mg Tablet 10 Mg PO DAILY Miralax (Polyethylene Glycol 3350) 119 Gm Powder 17 Gm PO DAILY Levothyroxine Sodium 200 Mcg Tablet 200 Mcg PO DAILY06 Pantoprazole Sodium 40 Mg Tablet.dr 40 Mg PO DAILY I have reviewed the current psychotropics carefully including drug interactions. Risk benefit ratio favors no change other than as noted in my dictated progress note. Diagnosis: Problems: (1) Dementia in Alzheimer's disease with delusions (2) Impulse control disorder (3) Schizoaffective disorder, chronic condition with acute exacerbation (4) Borderline intellectual disability STEVEN AYALA MD Aug 11, 2017 20:53
[2017-08-11] MEDS: traZODone 100 MG TABLET. PO PRN (22:00)
[2017-08-12] MEDS: LEVOTHYROXINE 100 MCG TABLET PO SCH (05:43)
[2017-08-12 05:50] VITALS: BP 108/68
[2017-08-12 08:05] LABS: ALBUMIN 3.1 g/dL (3.4-5.0); ALBUMIN/GLOBULIN RATIO 0.8 (1.0-1.7); ALK PHOS 85 U/L (46-116); ALT (SGPT) 33 U/L (16-63); ANION GAP 10 (6-14); AST (SGOT) 25 U/L (15-37); BLOOD UREA NITROGEN 12 mg/dL (8-26); BUN/CREATININE RATIO 13 (6-20); CALCIUM 9.2 mg/dL (8.5-10.1); CARBON DIOXIDE 25 mmol/L (21-32); CHLORIDE 104 mmol/L (98-107); CREATININE 0.9 mg/dL (0.7-1.3); GFR 87.9; GLUCOSE 95 mg/dL (70-99); POTASSIUM 4.1 mmol/L (3.5-5.1); SODIUM 139 mmol/L (136-145); TOTAL BILIRUBIN 0.1 mg/dL (0.2-1.0); TOTAL PROTEIN 7.1 g/dL (6.4-8.2)
[2017-08-12 08:11] LABS: VAL ACID 46 mcg/mL (50-100)
[2017-08-12] MEDS: OXYBUTYNIN CHLORIDE 5 MG TABLET PO SCH ×3 (08:24→20:23)
[2017-08-12] MEDS: QUEtiapine 50 MG TABLET. PO SCH ×2 (08:24→20:20)
[2017-08-12] MEDS: DIVALPROEX 125 MG CAP.SPRINK PO SCH ×2 (08:25→20:24)
[2017-08-12] MEDS: POLYETHYLENE GLYCOL 3350 17 GM PACKET. PO SCH (08:25)
[2017-08-12] MEDS: cloZAPine 100 MG TABLET PO SCH ×2 (08:26→20:20)
[2017-08-12] MEDS: traZODone 50 MG TABLET. PO SCH ×3 (08:26→16:49)
[2017-08-12 09:29] LABS: BASO # 0.1 x10^3/uL (0.0-0.2); BASO % 1 % (0-3); EOS # 0.2 x10^3/uL (0.0-0.7); EOS % 4 % (0-3); HEMOGLOBIN 13.2 g/dL (13.0-17.5); LYMPH # 1.6 x10^3/uL (1.0-4.8); LYMPH % 31 % (24-48); MEAN CORPUSCULAR HEMOGLOBIN 31 pg (25-35); MEAN CORPUSCULAR HGB CONC 34 g/dL (31-37); MEAN CORPUSCULAR VOLUME 92 fL (79-100); MONO # 0.4 x10^3/uL (0.0-1.1); MONO % 7 % (0-9); NEUT # 2.8 x10^3uL (1.8-7.7); NEUT % 56 % (31-73); PLATELET COUNT 268 x10^3/uL (140-400); RED BLOOD COUNT 4.23 x10^6/uL (4.30-5.70); RED CELL DISTRIBUTION WIDTH 13.1 % (11.5-14.5)
[2017-08-12 16:01] VITALS: BP 115/78
[2017-08-12] MEDS: ATORVASTATIN CALCIUM 10 MG TABLET. PO SCH (20:20)
[2017-08-12] MEDS: traZODone 100 MG TABLET. PO SCH (20:20)
[2017-08-12] MEDS: PHENYTOIN SODIUM EXTENDED 100 MG CAPSULE PO SCH (20:20)
--- NOTE | 2017-08-12 20:55 | PDOC ---
Exam Note: Chad Note: Please also refer to the separate dictated note~for this date of service dictated separately.~Patient seen individually. Discussed the patient with Nursing staff reviewed the chart.~Reviewed interim history and current functioning. Reviewed vital signs,~Labs/ Radiology~and current medications noted below. Continue current treatment with the changes noted in the dictated addendum note Assessment: Vital Signs: Vital Signs Date Time Temp Pulse Resp B/P (MAP) Pulse Ox O2 Delivery O2 Flow Rate FiO2 08/12/17 16:01 96.2 89 18 115/78 (90) 99 08/09/17 15:14 Room Air I&O Intake and Output 08/12/17 07:00 Intake Total 1080 ml Balance 1080 ml Intake Oral 1080 ml # Voids 3 Labs: Laboratory Tests Test 08/12/17 07:31 08/12/17 09:10 Sodium Level 139 mmol/L (136-145) Potassium Level 4.1 mmol/L (3.5-5.1) Chloride Level 104 mmol/L (98-107) Carbon Dioxide Level 25 mmol/L (21-32) Anion Gap 10 (6-14) Blood Urea Nitrogen 12 mg/dL (8-26) Creatinine 0.9 mg/dL (0.7-1.3) Estimated GFR (Cockcroft-Gault) 87.9 BUN/Creatinine Ratio 13 (6-20) Glucose Level 95 mg/dL (70-99) Calcium Level 9.2 mg/dL (8.5-10.1) Total Bilirubin 0.1 mg/dL (0.2-1.0) L Aspartate Amino Transferase (AST) 25 U/L (15-37) Alanine Aminotransferase (ALT) 33 U/L (16-63) Alkaline Phosphatase 85 U/L (46-116) Total Protein 7.1 g/dL (6.4-8.2) Albumin 3.1 g/dL (3.4-5.0) L Albumin/Globulin Ratio 0.8 (1.0-1.7) L Valproic Acid Level 46 mcg/mL (50-100) L Valproic Acid Last Dose Date 08/11/17 Valproic Acid Last Dose Time 2100 White Blood Count 5.0 x10^3/uL (4.0-11.0) Red Blood Count 4.23 x10^6/uL (4.30-5.70) L Hemoglobin 13.2 g/dL (13.0-17.5) Hematocrit 39.0 % (39.0-53.0) Mean Corpuscular Volume 92 fL (79-100) Mean Corpuscular Hemoglobin 31 pg (25-35) Mean Corpuscular Hemoglobin Concent 34 g/dL (31-37) Red Cell Distribution Width 13.1 % (11.5-14.5) Platelet Count 268 x10^3/uL (140-400) Neutrophils (%) (Auto) 56 % (31-73) Lymphocytes (%) (Auto) 31 % (24-48) Monocytes (%) (Auto) 7 % (0-9) Eosinophils (%) (Auto) 4 % (0-3) H Basophils (%) (Auto) 1 % (0-3) Neutrophils # (Auto) 2.8 x10^3uL (1.8-7.7) Lymphocytes # (Auto) 1.6 x10^3/uL (1.0-4.8) Monocytes # (Auto) 0.4 x10^3/uL (0.0-1.1) Eosinophils # (Auto) 0.2 x10^3/uL (0.0-0.7) Basophils # (Auto) 0.1 x10^3/uL (0.0-0.2) Current Medications: Meds: Current Medications Valproic Acid (Depakene) 500 mg STAT PO Last administered on 07/30/17at 21:21; Start 07/30/17 at 20:49; Stop 08/01/17 at 15:23; Status DC Divalproex Sodium (Depakote Er) 1,000 mg QHS PO ; Start 07/31/17 at 21:00; Stop 07/31/17 at 21:00; Status DC Divalproex Sodium (Depakote Er) 500 mg DAILY PO ; Start 07/31/17 at 09:00; Stop 07/31/17 at 09:00; Status DC Lorazepam (Ativan) 1 mg PRN BID PRN PO ANXIETY / AGITATION Last administered on 08/11/17at 18:44; Start 07/30/17 at 23:00 Olanzapine (ZyPREXA) 10 mg DAILY PO ; Start 07/31/17 at 09:00; Stop 07/31/17 at 09:00; Status DC Olanzapine (ZyPREXA) 5 mg DAILY@1400 PO ; Start 07/31/17 at 14:00; Stop at 14:00; Status DC Risperidone (RisperDAL CONSTA) 25 mg Q2WKS IM ; Start 08/13/17 at 09:00; Status UNV Clozapine (Clozaril) 200 mg DAILY PO Last administered on 08/12/17at 08:26; Start 07/31/17 at 09:00 Clozapine (Clozaril) 500 mg QHS PO Last administered on 08/12/17at 20:20; Start 07/31/17 at 21:00 Olanzapine (ZyPREXA) 20 mg QHS PO Last administered on 07/31/17 20:28; Start 07/31/17 at 21:00; Stop 08/01/17 at 09:51; Status DC Atorvastatin Calcium (Lipitor) 10 mg QHS PO ; Start 07/31/17 at 21:00; Stop 03/10 at 21:00; Status DC Phenytoin Sodium (Dilantin) 300 mg QHS PO Last administered on 08/12/17at 20:20 ; Start 07/31/17 at 21:00 Non-Formulary Medication (Sodium Fluoride (Prevident 5000)) 1 carlee BID DT ; Start 07/31/17 at 09:00; Stop 07/31/17 at 09:00; Status DC Oxybutynin Chloride (Ditropan) 5 mg [id number] PO Last administered on 08/12/17at 20 :23; Start 07/31/17 at 09:00 Quetiapine Fumarate (SEROquel) 100 mg BID PO Last administered on 08/08/17at 20: 51; Start 07/31/17 at 09:00; Stop 08/09/17 at 18:03; Status DC Acetaminophen (Tylenol) 500 mg PRN Q4HRS PRN PO PAIN Last administered on at 16:43; Start 07/31/17 at 07:15 Levothyroxine Sodium (Synthroid) 200 mcg DAILY06 PO Last administered on 05:43; Start 07/31/17 at 07:15 Fish Oil (Fish Oil) 1,000 mg DAILY PO Last administered on 07/31/17at 09:36; Start 07/31/17 at 09:00; Stop 08/01/17 at 09:51; Status DC Selenium Sulfide (Selsun) 1 carlee TWICEWEEKLY TP ; Start 07/31/17 at 07:30; Stop 07/31/17 at 14:29; Status DC Divalproex Sodium (Depakote Er) 1,000 mg QHS PO Last administered on 07/31/17at 20:26; Start 07/31/17 at 21:00; Stop 08/01/17 at 18:29; Status DC Atorvastatin Calcium (Lipitor) 10 mg QHS PO Last administered on 08/12/17at 20: 20; Start 07/31/17 at 21:00 Divalproex Sodium (Depakote Er) 500 mg DAILY PO Last administered on 08/01/17at 09:10; Start 07/31/17 at 09:00; Stop 08/01/17 at 09:51; Status DC Olanzapine (ZyPREXA) 10 mg DAILY PO Last administered on 08/01/17at 09:30; Start 07/31/17 at 09:00; Stop 08/01/17 at 09:51; Status DC Olanzapine (ZyPREXA) 5 mg DAILY@1400 PO Last administered on 07/31/17at 15:07; Start 07/31/17 at 14:00; Stop 08/01/17 at 09:51; Status DC Selenium Sulfide (Selsun) 1 carlee TWICEWEEKLY TP ; Start 07/31/17 at 14:29 Divalproex Sodium (Depakote Er) 750 mg DAILY PO ; Start 08/02/17 at 09:00; Stop 08/02/17 at 09:00; Status DC Divalproex Sodium (Depakote Sprinkles) 750 mg BID PO Last administered on at 09:21; Start 08/01/17 at 21:00; Stop 08/04/17 at 14:28; Status DC Al Hydroxide/Mg Hydroxide (Mylanta Plus Xs) 30 ml PRN AFTMEAL PRN PO DYSPEPSIA Last administered on 08/11/17at 18:15; Start 08/03/17 at 12:00 Magnesium Hydroxide (Milk Of Magnesia) 2,400 mg PRN DAILY PRN PO CONSTIPATION Last administered on 08/03/17at 17:16; Start 08/03/17 at 17:00 Divalproex Sodium (Depakote Sprinkles) 1,000 mg BID PO Last administered on at 07:51; Start 08/04/17 at 21:00; Stop 08/07/17 at 18:35; Status DC Polyethylene Glycol (miraLAX) 17 gm DAILY PO Last administered on 08/12/17at 08: 25; Start 08/05/17 at 09:00 Trazodone HCl (Desyrel) 100 mg QHS PO Last administered on 08/12/17at 20:20; Start 08/06/17 at 21:00 Trazodone HCl (Desyrel) 100 mg PRN QHS PRN PO INSOMNIA Last administered on at 22:00; Start 08/06/17 at 19:00 Divalproex Sodium (Depakote Sprinkles) 1,250 mg BID PO Last administered on at 20:51; Start 08/07/17 at 21:00; Stop 08/09/17 at 18:31; Status DC Quetiapine Fumarate (SEROquel) 50 mg BID PO Last administered on 08/12/17at 20: 20; Start 08/09/17 at 21:00 Divalproex Sodium (Depakote Sprinkles) 1,500 mg BID PO Last administered on at 08:25; Start 08/09/17 at 21:00; Stop 08/12/17 at 10:53; Status DC Trazodone HCl (Desyrel) 25 mg TID@0900,1300,1700 PO Last administered on at 16:49; Start 08/12/17 at 09:00 Divalproex Sodium (Depakote Sprinkles) 1,750 mg BID PO Last administered on at 20:24; Start 08/12/17 at 21:00 Active Scripts Active Reported Ibuprofen 400 Mg Tablet 400 Mg PO PRN Q4HRS PRN MDD 1200mg/24hrs Lorazepam 2 Mg/1 Ml Vial 1 Mg IM BID PRN Abilify Maintena (Aripiprazole) 400 Mg Suser.vial 400 Mg IM Q4WK Next dose due 08/26/17 Paroxetine Hcl 20 Mg Tablet 10 Mg PO DAILY Abilify (Aripiprazole) 5 Mg Tablet 5 Mg PO DAILY Fenofibrate 160 Mg Tablet 160 Mg PO QHS Olanzapine 5 Mg Tablet 5 Mg PO DAILY@1400 5mg PO daily at 14:00 Methylphenidate Hcl 10 Mg Tablet 10 Mg PO BID@0900,1300 Seroquel (Quetiapine Fumarate) 100 Mg Tablet 100 Mg PO BID Prevident 5000 (Sodium Fluoride) 100 Ml Gel..ml. 1 Carlee DT BID Selenium Sulfide 180 Ml Shampoo 1 Carlee TP TWICE WEEKLY Lorazepam 1 Mg Tablet 1 Mg PO PRN BID PRN Acetaminophen 500 Mg Tablet 500 Mg PO PRN Q4HRS PRN Risperdal Consta (Risperidone Microspheres) 25 Mg/2 Ml Disp.syrin 25 Mg IM Q2WKS Phenytoin 125 Mg/5 Ml Oral.susp 300 Mg PO QHS Zyprexa (Olanzapine) 20 Mg Tablet 20 Mg PO QHS Atorvastatin Calcium 10 Mg Tablet 10 Mg PO QHS Zyprexa (Olanzapine) 5 Mg Tablet 5 Mg PO DAILY@1400 Clozapine 200 Mg Tablet 500 Mg PO QHS Clozapine 200 Mg Tablet 200 Mg PO DAILY Detrol La (Tolterodine Tartrate) 2 Mg Cap.er.24h 2 Mg PO BID Depakote Er (Divalproex Sodium) 500 Mg Tab.er.24h 500 Mg PO DAILY Depakote Er (Divalproex Sodium) 500 Mg Tab.er.24h 1,000 Mg PO QHS [place] 3 1,000 Mg Softgel ([place]-3 Fatty Acids/Fish Oil) 1 Each Capsule 1,000 Mg PO DAILY Thera-M Tablet (Multivits,Ca,Minerals/Iron/Fa) 1 Each Tablet 1 Tab PO DAILY Vitamin D3 (Cholecalciferol (Vitamin D3)) 1,000 Unit Tablet 2,000 Unit PO DAILY Olanzapine 10 Mg Tablet 10 Mg PO DAILY Miralax (Polyethylene Glycol 3350) 119 Gm Powder 17 Gm PO DAILY Levothyroxine Sodium 200 Mcg Tablet 200 Mcg PO DAILY06 Pantoprazole Sodium 40 Mg Tablet.dr 40 Mg PO DAILY I have reviewed the current psychotropics carefully including drug interactions. Risk benefit ratio favors no change other than as noted in my dictated progress note. Diagnosis: Problems: (1) Dementia in Alzheimer's disease with delusions (2) Impulse control disorder (3) Schizoaffective disorder, chronic condition with acute exacerbation (4) Borderline intellectual disability STEVEN AYALA MD Aug 12, 2017 20:55
[2017-08-12] MEDS: traZODone 100 MG TABLET. PO PRN (23:20)
[2017-08-13 05:49] VITALS: BP 107/55
[2017-08-13] MEDS: LEVOTHYROXINE 100 MCG TABLET PO SCH (05:51)
[2017-08-13] MEDS ORDERED: risperiDONE MICROSPHERES 25 MG/2 ML DISP.SYRIN. IM SCH (09:00)
[2017-08-13] MEDS: MAGNESIUM HYDROXIDE 2,400 MG/30 ML ORAL.SUSP. PO PRN (09:03)
[2017-08-13] MEDS: cloZAPine 100 MG TABLET PO SCH ×2 (09:03→19:30)
[2017-08-13] MEDS: OXYBUTYNIN CHLORIDE 5 MG TABLET PO SCH ×3 (09:03→19:29)
[2017-08-13] MEDS: QUEtiapine 50 MG TABLET. PO SCH ×2 (09:03→19:29)
[2017-08-13] MEDS: traZODone 50 MG TABLET. PO SCH ×3 (09:03→17:10)
[2017-08-13] MEDS: DIVALPROEX 125 MG CAP.SPRINK PO SCH ×2 (09:04→19:28)
[2017-08-13] MEDS: POLYETHYLENE GLYCOL 3350 17 GM PACKET. PO SCH (09:04)
--- NOTE | 2017-08-13 09:37 | PN ---
DATE: 08/11/2017 PSYCHIATRIC PROGRESS NOTE This is a late entry 08/11/2017 covers elements not covered in my initial note 08/11/2017. Met with the patient in the evening of 08/11/2017. The patient slept 4 hours previous evening. He has had a very difficult day on 08/11/2017. He has been loud, agitated, disruptive, aggressive obsessive and he followed me around the unit, yelling, agitated all evening. It is difficult to move him off topic that he gets in his head, which is vague somatic symptoms, states he feels sick REVIEW OF SYSTEMS: No CV, , pulmonary system symptoms on review. Reliability poor. MENTAL STATUS EXAM: Oriented to himself and situation. Speech coherent, rapid, loud at times. Abstraction fair, computation impaired, language function intact, attention span short. Mood and affect remains labile, obsessive. LABORATORY DATA: Reviewed. IMPRESSION: Schizoaffective disorder, bipolar type, mixed with psychotic features, intellectual disability. Rest unchanged. PLAN: Start trazodone 25 mg 9 a.m., 1:00 p.m., 5:00 p.m. Maintain rest unchanged including Clozaril, Depakote is being adjusted to reach a therapeutic level. MAN Suleman AYALA MD DR: ADALBERTO/garry JOB#: [id number] / [id number]
--- NOTE | 2017-08-13 12:58 | PN ---
DATE: 08/12/2017 PSYCHIATRIC PROGRESS NOTE This is a late entry 08/12/2017, covers elements not covered in my initial note 08/12/2017. SUBJECTIVE: I met with the patient the evening of 08/12/2017 and he was staffed at a treatment team meeting with the entire team morning of 08/12/2017. Sleeping average of 6-1/2 hours. He still attention seeking, obsessive, but much improved by the evening of 08/12/2017 as compared to the day before, seems to be responding to the scheduled trazodone we added 25 mg 3 times a day. He is still obsessive somatically preoccupied, attention seeking in the dining room. REVIEW OF SYSTEMS: No CV, , pulmonary, eye system symptoms on review. MENTAL STATUS EXAM: Oriented to himself and situation. Speech coherent, rapid at times, less loud. Abstraction fair, computation impaired, language function intact, attention span short. Mood and affect still labile, but improved. LABORATORY DATA: Reviewed. IMPRESSION: Schizoaffective disorder, bipolar type, mixed with psychotic features, in partial remission, intellectual disability. Rest unchanged. PLAN: Continue current psychotropics. Valproic acid level is 46 on 08/12/2017, on Depakote Sprinkles 1500 mg b.i.d. We will increase this to 1750 mg twice a day. Check CBC, CMP, valproic acid level in 3 days. Continue Seroquel, Clozaril and he is on Dilantin for his seizure disorder along with the scheduled trazodone during the day. STEVEN AYALA MD DR: ADALBERTO/garry JOB#: [id number] / [id number]
[2017-08-13 16:10] VITALS: BP 117/57
[2017-08-13] MEDS: ACETAMINOPHEN 500 MG TABLET PO PRN (18:02)
[2017-08-13] MEDS ORDERED: traZODone 50 MG TABLET. PO ONE (18:30)
[2017-08-13] MEDS: ATORVASTATIN CALCIUM 10 MG TABLET. PO SCH (19:29)
[2017-08-13] MEDS: PHENYTOIN SODIUM EXTENDED 100 MG CAPSULE PO SCH (19:29)
[2017-08-13] MEDS: traZODone 100 MG TABLET. PO SCH (19:29)
[2017-08-13] MEDS: LORazepam 1 MG TABLET PO PRN (20:18)
--- NOTE | 2017-08-13 20:57 | PDOC ---
Exam Note: Chad Note: Please also refer to the separate dictated note~for this date of service dictated separately.~Patient seen individually. Discussed the patient with Nursing staff reviewed the chart.~Reviewed interim history and current functioning. Reviewed vital signs,~Labs/ Radiology~and current medications noted below. Continue current treatment with the changes noted in the dictated addendum note Assessment: Vital Signs: Vital Signs Date Time Temp Pulse Resp B/P (MAP) Pulse Ox O2 Delivery O2 Flow Rate FiO2 08/13/17 16:10 97.2 102 20 117/57 (77) 100 08/09/17 15:14 Room Air I&O Intake and Output 08/13/17 07:00 Intake Total 1320 ml Balance 1320 ml Intake Oral 1320 ml # Voids 3 # Bowel Movements 1 Current Medications: Meds: Current Medications Valproic Acid (Depakene) 500 mg STAT PO Last administered on 07/30/17at 21:21; Start 07/30/17 at 20:49; Stop 08/01/17 at 15:23; Status DC Divalproex Sodium (Depakote Er) 1,000 mg QHS PO ; Start 07/31/17 at 21:00; Stop 07/31/17 at 21:00; Status DC Divalproex Sodium (Depakote Er) 500 mg DAILY PO ; Start 07/31/17 at 09:00; Stop 07/31/17 at 09:00; Status DC Lorazepam (Ativan) 1 mg PRN BID PRN PO ANXIETY / AGITATION Last administered on 08/13/17at 20:18; Start 07/30/17 at 23:00 Olanzapine (ZyPREXA) 10 mg DAILY PO ; Start 07/31/17 at 09:00; Stop 07/31/17 at 09:00; Status DC Olanzapine (ZyPREXA) 5 mg DAILY@1400 PO ; Start 07/31/17 at 14:00; Stop at 14:00; Status DC Risperidone (RisperDAL CONSTA) 25 mg Q2WKS IM ; Start 08/13/17 at 09:00; Status UNV Clozapine (Clozaril) 200 mg DAILY PO Last administered on 08/13/17at 09:03; Start 07/31/17 at 09:00 Clozapine (Clozaril) 500 mg QHS PO Last administered on 3/23/18at 19:30; Start 07/31/17 at 21:00 Olanzapine (ZyPREXA) 20 mg QHS PO Last administered on 07/31/17 20:28; Start 07/31/17 at 21:00; Stop 08/01/17 at 09:51; Status DC Atorvastatin Calcium (Lipitor) 10 mg QHS PO ; Start 07/31/17 at 21:00; Stop 03/10 at 21:00; Status DC Phenytoin Sodium (Dilantin) 300 mg QHS PO Last administered on 08/13/17 19:29 ; Start 07/31/17 at 21:00 Non-Formulary Medication (Sodium Fluoride (Prevident 5000)) 1 carlee BID DT ; Start 07/31/17 at 09:00; Stop 07/31/17 at 09:00; Status DC Oxybutynin Chloride (Ditropan) 5 mg [id number] PO Last administered on 08/13/17 19 :29; Start 07/31/17 at 09:00 Quetiapine Fumarate (SEROquel) 100 mg BID PO Last administered on 08/08/17at 20: 51; Start 07/31/17 at 09:00; Stop 08/09/17 at 18:03; Status DC Acetaminophen (Tylenol) 500 mg PRN Q4HRS PRN PO PAIN Last administered on 18:02; Start 07/31/17 at 07:15 Levothyroxine Sodium (Synthroid) 200 mcg DAILY06 PO Last administered on at 05:51; Start 07/31/17 at 07:15 Fish Oil (Fish Oil) 1,000 mg DAILY PO Last administered on 07/31/17at 09:36; Start 07/31/17 at 09:00; Stop 08/01/17 at 09:51; Status DC Selenium Sulfide (Selsun) 1 carlee TWICEWEEKLY TP ; Start 07/31/17 at 07:30; Stop 07/31/17 at 14:29; Status DC Divalproex Sodium (Depakote Er) 1,000 mg QHS PO Last administered on 07/31/17at 20:26; Start 07/31/17 at 21:00; Stop 08/01/17 at 18:29; Status DC Atorvastatin Calcium (Lipitor) 10 mg QHS PO Last administered on 08/13/17 19: 29; Start 07/31/17 at 21:00 Divalproex Sodium (Depakote Er) 500 mg DAILY PO Last administered on 08/01/17at 09:10; Start 07/31/17 at 09:00; Stop 08/01/17 at 09:51; Status DC Olanzapine (ZyPREXA) 10 mg DAILY PO Last administered on 08/01/17 09:30; Start 07/31/17 at 09:00; Stop 08/01/17 at 09:51; Status DC Olanzapine (ZyPREXA) 5 mg DAILY@1400 PO Last administered on 07/31/17at 15:07; Start 07/31/17 at 14:00; Stop 08/01/17 at 09:51; Status DC Selenium Sulfide (Selsun) 1 carlee TWICEWEEKLY TP ; Start 07/31/17 at 14:29 Divalproex Sodium (Depakote Er) 750 mg DAILY PO ; Start 08/02/17 at 09:00; Stop 08/02/17 at 09:00; Status DC Divalproex Sodium (Depakote Sprinkles) 750 mg BID PO Last administered on 09:21; Start 08/01/17 at 21:00; Stop 08/04/17 at 14:28; Status DC Al Hydroxide/Mg Hydroxide (Mylanta Plus Xs) 30 ml PRN AFTMEAL PRN PO DYSPEPSIA Last administered on 08/11/17 18:15; Start 08/03/17 at 12:00 Magnesium Hydroxide (Milk Of Magnesia) 2,400 mg PRN DAILY PRN PO CONSTIPATION Last administered on 08/13/17 09:03; Start 08/03/17 at 17:00 Divalproex Sodium (Depakote Sprinkles) 1,000 mg BID PO Last administered on 07:51; Start 08/04/17 at 21:00; Stop 08/07/17 at 18:35; Status DC Polyethylene Glycol (miraLAX) 17 gm DAILY PO Last administered on 08/13/17 09: 04; Start 08/05/17 at 09:00 Trazodone HCl (Desyrel) 100 mg QHS PO Last administered on 3/23/18at 19:29; Start 08/06/17 at 21:00 Trazodone HCl (Desyrel) 100 mg PRN QHS PRN PO INSOMNIA Last administered on at 23:20; Start 08/06/17 at 19:00 Divalproex Sodium (Depakote Sprinkles) 1,250 mg BID PO Last administered on at 20:51; Start 08/07/17 at 21:00; Stop 08/09/17 at 18:31; Status DC Quetiapine Fumarate (SEROquel) 50 mg BID PO Last administered on 08/13/17at 19: 29; Start 08/09/17 at 21:00 Divalproex Sodium (Depakote Sprinkles) 1,500 mg BID PO Last administered on at 08:25; Start 08/09/17 at 21:00; Stop 08/12/17 at 10:53; Status DC Trazodone HCl (Desyrel) 25 mg TID@0900,1300,1700 PO Last administered on at 17:10; Start 08/12/17 at 09:00; Stop 08/13/17 at 18:00; Status DC Divalproex Sodium (Depakote Sprinkles) 1,750 mg BID PO Last administered on at 19:28; Start 08/12/17 at 21:00 Trazodone HCl (Desyrel) 25 mg BID@1300,1700 PO ; Start 08/14/17 at 13:00 Trazodone HCl (Desyrel) 50 mg DAILY PO ; Start 08/14/17 at 09:00 Trazodone HCl (Desyrel) 50 mg 1X ONCE PO Last administered on 08/13/17at 18:29 ; Start 08/13/17 at 18:30; Stop 08/13/17 at 18:31; Status DC Active Scripts Active Reported Ibuprofen 400 Mg Tablet 400 Mg PO PRN Q4HRS PRN MDD 1200mg/24hrs Lorazepam 2 Mg/1 Ml Vial 1 Mg IM BID PRN Abilify Maintena (Aripiprazole) 400 Mg Suser.vial 400 Mg IM Q4WK Next dose due 08/26/17 Paroxetine Hcl 20 Mg Tablet 10 Mg PO DAILY Abilify (Aripiprazole) 5 Mg Tablet 5 Mg PO DAILY Fenofibrate 160 Mg Tablet 160 Mg PO QHS Olanzapine 5 Mg Tablet 5 Mg PO DAILY@1400 5mg PO daily at 14:00 Methylphenidate Hcl 10 Mg Tablet 10 Mg PO BID@0900,1300 Seroquel (Quetiapine Fumarate) 100 Mg Tablet 100 Mg PO BID Prevident 5000 (Sodium Fluoride) 100 Ml Gel..ml. 1 Carlee DT BID Selenium Sulfide 180 Ml Shampoo 1 Carlee TP TWICE WEEKLY Lorazepam 1 Mg Tablet 1 Mg PO PRN BID PRN Acetaminophen 500 Mg Tablet 500 Mg PO PRN Q4HRS PRN Risperdal Consta (Risperidone Microspheres) 25 Mg/2 Ml Disp.syrin 25 Mg IM Q2WKS Phenytoin 125 Mg/5 Ml Oral.susp 300 Mg PO QHS Zyprexa (Olanzapine) 20 Mg Tablet 20 Mg PO QHS Atorvastatin Calcium 10 Mg Tablet 10 Mg PO QHS Zyprexa (Olanzapine) 5 Mg Tablet 5 Mg PO DAILY@1400 Clozapine 200 Mg Tablet 500 Mg PO QHS Clozapine 200 Mg Tablet 200 Mg PO DAILY Detrol La (Tolterodine Tartrate) 2 Mg Cap.er.24h 2 Mg PO BID Depakote Er (Divalproex Sodium) 500 Mg Tab.er.24h 500 Mg PO DAILY Depakote Er (Divalproex Sodium) 500 Mg Tab.er.24h 1,000 Mg PO QHS [place] 3 1,000 Mg Softgel ([place]-3 Fatty Acids/Fish Oil) 1 Each Capsule 1,000 Mg PO DAILY Thera-M Tablet (Multivits,Ca,Minerals/Iron/Fa) 1 Each Tablet 1 Tab PO DAILY Vitamin D3 (Cholecalciferol (Vitamin D3)) 1,000 Unit Tablet 2,000 Unit PO DAILY Olanzapine 10 Mg Tablet 10 Mg PO DAILY Miralax (Polyethylene Glycol 3350) 119 Gm Powder 17 Gm PO DAILY Levothyroxine Sodium 200 Mcg Tablet 200 Mcg PO DAILY06 Pantoprazole Sodium 40 Mg Tablet.dr 40 Mg PO DAILY I have reviewed the current psychotropics carefully including drug interactions. Risk benefit ratio favors no change other than as noted in my dictated progress note. Diagnosis: Problems: (1) Dementia in Alzheimer's disease with delusions (2) Impulse control disorder (3) Schizoaffective disorder, chronic condition with acute exacerbation (4) Borderline intellectual disability STEVEN AYALA MD Aug 13, 2017 20:57
[2017-08-14] MEDS: MAG HYDROX/AL HYDROX/SIMETH 30 ML ORAL.SUSP PO PRN (04:50)
[2017-08-14 05:46] VITALS: BP 108/63
[2017-08-14] MEDS: LEVOTHYROXINE 100 MCG TABLET PO SCH (06:32)
[2017-08-14] MEDS: cloZAPine 100 MG TABLET PO SCH ×2 (09:21→19:50)
[2017-08-14] MEDS: DIVALPROEX 125 MG CAP.SPRINK PO SCH ×2 (09:22→19:49)
[2017-08-14] MEDS: OXYBUTYNIN CHLORIDE 5 MG TABLET PO SCH ×3 (09:25→19:50)
[2017-08-14] MEDS: traZODone 50 MG TABLET. PO SCH ×3 (09:25→17:12)
[2017-08-14] MEDS: QUEtiapine 50 MG TABLET. PO SCH ×2 (09:26→19:50)
[2017-08-14] MEDS: POLYETHYLENE GLYCOL 3350 17 GM PACKET. PO SCH (09:26)
[2017-08-14 16:02] VITALS: BP 117/57
--- NOTE | 2017-08-14 17:52 | PN ---
DATE: 08/13/2017 PSYCHIATRIC PROGRESS NOTE This late entry 08/13/2017 covers elements not covered in my initial note of 08/13/2017. SUBJECTIVE: Met with the patient in the evening of 08/13/2017. The patient has had increased mood lability during the day on 08/13/2017, starting in the morning. He is obsessed about his room, temperature of being too cold as the maximum on the evening, had a bowel movement in the morning. He had some vague somatic symptoms with, GI symptoms. REVIEW OF SYSTEMS: No CV, , pulmonary, eye, ENT system symptoms on review. MENTAL STATUS EXAM: Oriented to himself, situation. Speech is coherent, rapid, loud at times. Abstraction fair, computation is impaired, language function intact, attention span short. Mood and affect remained somewhat labile. LABORATORY DATA: Reviewed. IMPRESSION: Unchanged from initial note. PLAN: Continue current psychotropics, increased the a.m. trazodone from 25 mg at ____ to 50 mg. Rest unchanged. MAN Suleman AYALA MD DR: ADALBERTO/garry JOB#: [id number] / [id number]
[2017-08-14] MEDS: traZODone 100 MG TABLET. PO SCH (19:50)
[2017-08-14] MEDS: PHENYTOIN SODIUM EXTENDED 100 MG CAPSULE PO SCH (19:50)
[2017-08-14] MEDS: ATORVASTATIN CALCIUM 10 MG TABLET. PO SCH (19:51)
[2017-08-14] MEDS: MAGNESIUM HYDROXIDE 2,400 MG/30 ML ORAL.SUSP. PO PRN (20:28)
--- NOTE | 2017-08-14 21:59 | PDOC ---
Exam Note: Chad Note: Please also refer to the separate dictated note~for this date of service dictated separately.~Patient seen individually. Discussed the patient with Nursing staff reviewed the chart.~Reviewed interim history and current functioning. Reviewed vital signs,~Labs/ Radiology~and current medications noted below. Continue current treatment with the changes noted in the dictated addendum note Assessment: Vital Signs: Vital Signs Date Time Temp Pulse Resp B/P (MAP) Pulse Ox O2 Delivery O2 Flow Rate FiO2 08/14/17 16:02 97.9 86 20 117/57 (77) 100 08/09/17 15:14 Room Air I&O Intake and Output 08/14/17 07:00 Intake Total 2040 ml Balance 2040 ml Intake Oral 2040 ml # Voids 3 # Bowel Movements 1 Current Medications: Meds: Current Medications Valproic Acid (Depakene) 500 mg STAT PO Last administered on 07/30/17at 21:21; Start 07/30/17 at 20:49; Stop 08/01/17 at 15:23; Status DC Divalproex Sodium (Depakote Er) 1,000 mg QHS PO ; Start 07/31/17 at 21:00; Stop 07/31/17 at 21:00; Status DC Divalproex Sodium (Depakote Er) 500 mg DAILY PO ; Start 07/31/17 at 09:00; Stop 07/31/17 at 09:00; Status DC Lorazepam (Ativan) 1 mg PRN BID PRN PO ANXIETY / AGITATION Last administered on 08/13/17at 20:18; Start 07/30/17 at 23:00 Olanzapine (ZyPREXA) 10 mg DAILY PO ; Start 07/31/17 at 09:00; Stop 07/31/17 at 09:00; Status DC Olanzapine (ZyPREXA) 5 mg DAILY@1400 PO ; Start 07/31/17 at 14:00; Stop at 14:00; Status DC Risperidone (RisperDAL CONSTA) 25 mg Q2WKS IM ; Start 08/13/17 at 09:00; Status UNV Clozapine (Clozaril) 200 mg DAILY PO Last administered on 08/14/17at 09:21; Start 07/31/17 at 09:00 Clozapine (Clozaril) 500 mg QHS PO Last administered on 3/24/18at 19:50; Start 07/31/17 at 21:00 Olanzapine (ZyPREXA) 20 mg QHS PO Last administered on 07/31/17 20:28; Start 07/31/17 at 21:00; Stop 08/01/17 at 09:51; Status DC Atorvastatin Calcium (Lipitor) 10 mg QHS PO ; Start 07/31/17 at 21:00; Stop 03/10 at 21:00; Status DC Phenytoin Sodium (Dilantin) 300 mg QHS PO Last administered on 08/14/17at 19:50 ; Start 07/31/17 at 21:00 Non-Formulary Medication (Sodium Fluoride (Prevident 5000)) 1 carlee BID DT ; Start 07/31/17 at 09:00; Stop 07/31/17 at 09:00; Status DC Oxybutynin Chloride (Ditropan) 5 mg [id number] PO Last administered on 08/14/17 19 :50; Start 07/31/17 at 09:00 Quetiapine Fumarate (SEROquel) 100 mg BID PO Last administered on 08/08/17at 20: 51; Start 07/31/17 at 09:00; Stop 08/09/17 at 18:03; Status DC Acetaminophen (Tylenol) 500 mg PRN Q4HRS PRN PO PAIN Last administered on 18:02; Start 07/31/17 at 07:15 Levothyroxine Sodium (Synthroid) 200 mcg DAILY06 PO Last administered on at 06:32; Start 07/31/17 at 07:15 Fish Oil (Fish Oil) 1,000 mg DAILY PO Last administered on 07/31/17at 09:36; Start 07/31/17 at 09:00; Stop 08/01/17 at 09:51; Status DC Selenium Sulfide (Selsun) 1 carlee TWICEWEEKLY TP ; Start 07/31/17 at 07:30; Stop 07/31/17 at 14:29; Status DC Divalproex Sodium (Depakote Er) 1,000 mg QHS PO Last administered on 07/31/17at 20:26; Start 07/31/17 at 21:00; Stop 08/01/17 at 18:29; Status DC Atorvastatin Calcium (Lipitor) 10 mg QHS PO Last administered on 08/14/17 19: 51; Start 07/31/17 at 21:00 Divalproex Sodium (Depakote Er) 500 mg DAILY PO Last administered on 08/01/17at 09:10; Start 07/31/17 at 09:00; Stop 08/01/17 at 09:51; Status DC Olanzapine (ZyPREXA) 10 mg DAILY PO Last administered on 08/01/17 09:30; Start 07/31/17 at 09:00; Stop 08/01/17 at 09:51; Status DC Olanzapine (ZyPREXA) 5 mg DAILY@1400 PO Last administered on 07/31/17at 15:07; Start 07/31/17 at 14:00; Stop 08/01/17 at 09:51; Status DC Selenium Sulfide (Selsun) 1 carlee TWICEWEEKLY TP ; Start 07/31/17 at 14:29 Divalproex Sodium (Depakote Er) 750 mg DAILY PO ; Start 08/02/17 at 09:00; Stop 08/02/17 at 09:00; Status DC Divalproex Sodium (Depakote Sprinkles) 750 mg BID PO Last administered on 09:21; Start 08/01/17 at 21:00; Stop 08/04/17 at 14:28; Status DC Al Hydroxide/Mg Hydroxide (Mylanta Plus Xs) 30 ml PRN AFTMEAL PRN PO DYSPEPSIA Last administered on 08/14/17 04:50; Start 08/03/17 at 12:00 Magnesium Hydroxide (Milk Of Magnesia) 2,400 mg PRN DAILY PRN PO CONSTIPATION Last administered on 08/14/17 20:28; Start 08/03/17 at 17:00 Divalproex Sodium (Depakote Sprinkles) 1,000 mg BID PO Last administered on 07:51; Start 08/04/17 at 21:00; Stop 08/07/17 at 18:35; Status DC Polyethylene Glycol (miraLAX) 17 gm DAILY PO Last administered on 08/14/17 09: 26; Start 08/05/17 at 09:00 Trazodone HCl (Desyrel) 100 mg QHS PO Last administered on 3/24/18at 19:50; Start 08/06/17 at 21:00 Trazodone HCl (Desyrel) 100 mg PRN QHS PRN PO INSOMNIA Last administered on at 23:20; Start 08/06/17 at 19:00 Divalproex Sodium (Depakote Sprinkles) 1,250 mg BID PO Last administered on at 20:51; Start 08/07/17 at 21:00; Stop 08/09/17 at 18:31; Status DC Quetiapine Fumarate (SEROquel) 50 mg BID PO Last administered on 08/14/17 19: 50; Start 08/09/17 at 21:00 Divalproex Sodium (Depakote Sprinkles) 1,500 mg BID PO Last administered on at 08:25; Start 08/09/17 at 21:00; Stop 08/12/17 at 10:53; Status DC Trazodone HCl (Desyrel) 25 mg TID@0900,1300,1700 PO Last administered on at 17:10; Start 08/12/17 at 09:00; Stop 08/13/17 at 18:00; Status DC Divalproex Sodium (Depakote Sprinkles) 1,750 mg BID PO Last administered on at 19:49; Start 08/12/17 at 21:00 Trazodone HCl (Desyrel) 25 mg BID@1300,1700 PO Last administered on 08/14/17at 17:12; Start 08/14/17 at 13:00 Trazodone HCl (Desyrel) 50 mg DAILY PO Last administered on 08/14/17at 09:25; Start 08/14/17 at 09:00 Trazodone HCl (Desyrel) 50 mg 1X ONCE PO Last administered on 08/13/17at 18:29 ; Start 08/13/17 at 18:30; Stop 08/13/17 at 18:31; Status DC Sertraline HCl (Zoloft) 25 mg DAILY PO ; Start 08/15/17 at 09:00; Stop 08/17/17 at 11:00 Sertraline HCl (Zoloft) 50 mg DAILY PO ; Start 08/18/17 at 09:00 Active Scripts Active Reported Ibuprofen 400 Mg Tablet 400 Mg PO PRN Q4HRS PRN MDD 1200mg/24hrs Lorazepam 2 Mg/1 Ml Vial 1 Mg IM BID PRN Abilify Maintena (Aripiprazole) 400 Mg Suser.vial 400 Mg IM Q4WK Next dose due 08/26/17 Paroxetine Hcl 20 Mg Tablet 10 Mg PO DAILY Abilify (Aripiprazole) 5 Mg Tablet 5 Mg PO DAILY Fenofibrate 160 Mg Tablet 160 Mg PO QHS Olanzapine 5 Mg Tablet 5 Mg PO DAILY@1400 5mg PO daily at 14:00 Methylphenidate Hcl 10 Mg Tablet 10 Mg PO BID@0900,1300 Seroquel (Quetiapine Fumarate) 100 Mg Tablet 100 Mg PO BID Prevident 5000 (Sodium Fluoride) 100 Ml Gel..ml. 1 Carlee DT BID Selenium Sulfide 180 Ml Shampoo 1 Carlee TP TWICE WEEKLY Lorazepam 1 Mg Tablet 1 Mg PO PRN BID PRN Acetaminophen 500 Mg Tablet 500 Mg PO PRN Q4HRS PRN Risperdal Consta (Risperidone Microspheres) 25 Mg/2 Ml Disp.syrin 25 Mg IM Q2WKS Phenytoin 125 Mg/5 Ml Oral.susp 300 Mg PO QHS Zyprexa (Olanzapine) 20 Mg Tablet 20 Mg PO QHS Atorvastatin Calcium 10 Mg Tablet 10 Mg PO QHS Zyprexa (Olanzapine) 5 Mg Tablet 5 Mg PO DAILY@1400 Clozapine 200 Mg Tablet 500 Mg PO QHS Clozapine 200 Mg Tablet 200 Mg PO DAILY Detrol La (Tolterodine Tartrate) 2 Mg Cap.er.24h 2 Mg PO BID Depakote Er (Divalproex Sodium) 500 Mg Tab.er.24h 500 Mg PO DAILY Depakote Er (Divalproex Sodium) 500 Mg Tab.er.24h 1,000 Mg PO QHS [place] 3 1,000 Mg Softgel ([place]-3 Fatty Acids/Fish Oil) 1 Each Capsule 1,000 Mg PO DAILY Thera-M Tablet (Multivits,Ca,Minerals/Iron/Fa) 1 Each Tablet 1 Tab PO DAILY Vitamin D3 (Cholecalciferol (Vitamin D3)) 1,000 Unit Tablet 2,000 Unit PO DAILY Olanzapine 10 Mg Tablet 10 Mg PO DAILY Miralax (Polyethylene Glycol 3350) 119 Gm Powder 17 Gm PO DAILY Levothyroxine Sodium 200 Mcg Tablet 200 Mcg PO DAILY06 Pantoprazole Sodium 40 Mg Tablet.dr 40 Mg PO DAILY I have reviewed the current psychotropics carefully including drug interactions. Risk benefit ratio favors no change other than as noted in my dictated progress note. Diagnosis: Problems: (1) Dementia in Alzheimer's disease with delusions (2) Impulse control disorder (3) Schizoaffective disorder, chronic condition with acute exacerbation (4) Borderline intellectual disability STEVEN AYALA MD Aug 14, 2017 21:59
[2017-08-15 05:48] VITALS: BP 106/65
[2017-08-15] MEDS: LEVOTHYROXINE 100 MCG TABLET PO SCH (06:11)
[2017-08-15] MEDS: POLYETHYLENE GLYCOL 3350 17 GM PACKET. PO SCH (09:00)
[2017-08-15] MEDS: cloZAPine 100 MG TABLET PO SCH ×2 (09:24→19:35)
[2017-08-15] MEDS: QUEtiapine 50 MG TABLET. PO SCH ×2 (09:25→19:35)
[2017-08-15] MEDS: DIVALPROEX 125 MG CAP.SPRINK PO SCH ×2 (09:25→19:35)
[2017-08-15] MEDS: traZODone 50 MG TABLET. PO SCH ×3 (09:25→17:05)
[2017-08-15] MEDS: OXYBUTYNIN CHLORIDE 5 MG TABLET PO SCH ×3 (09:25→19:35)
[2017-08-15] MEDS: SERTRALINE 25 MG TABLET. PO SCH (09:26)
[2017-08-15 16:06] VITALS: BP 119/67
[2017-08-15] MEDS: MAG HYDROX/AL HYDROX/SIMETH 30 ML ORAL.SUSP PO PRN (17:05)
[2017-08-15] MEDS: LORazepam 1 MG TABLET PO PRN (19:14)
[2017-08-15] MEDS: PHENYTOIN SODIUM EXTENDED 100 MG CAPSULE PO SCH (19:34)
[2017-08-15] MEDS: ATORVASTATIN CALCIUM 10 MG TABLET. PO SCH (19:35)
[2017-08-15] MEDS: traZODone 100 MG TABLET. PO SCH (19:35)
--- NOTE | 2017-08-15 20:40 | EKG ---
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
--- NOTE | 2017-08-15 20:58 | PDOC ---
Exam Note: Chad Note: Please also refer to the separate dictated note~for this date of service dictated separately.~Patient seen individually. Discussed the patient with Nursing staff reviewed the chart.~Reviewed interim history and current functioning. Reviewed vital signs,~Labs/ Radiology~and current medications noted below. Continue current treatment with the changes noted in the dictated addendum note Assessment: Vital Signs: Vital Signs Date Time Temp Pulse Resp B/P (MAP) Pulse Ox O2 Delivery O2 Flow Rate FiO2 08/15/17 16:06 97.3 91 18 119/67 (84) 99 08/09/17 15:14 Room Air I&O Intake and Output 08/15/17 07:00 Intake Total 1320 ml Balance 1320 ml Intake Oral 1320 ml # Voids 2 # Bowel Movements 1 Current Medications: Meds: Current Medications Valproic Acid (Depakene) 500 mg STAT PO Last administered on 07/30/17at 21:21; Start 07/30/17 at 20:49; Stop 08/01/17 at 15:23; Status DC Divalproex Sodium (Depakote Er) 1,000 mg QHS PO ; Start 07/31/17 at 21:00; Stop 07/31/17 at 21:00; Status DC Divalproex Sodium (Depakote Er) 500 mg DAILY PO ; Start 07/31/17 at 09:00; Stop 07/31/17 at 09:00; Status DC Lorazepam (Ativan) 1 mg PRN BID PRN PO ANXIETY / AGITATION Last administered on 08/15/17at 19:14; Start 07/30/17 at 23:00 Olanzapine (ZyPREXA) 10 mg DAILY PO ; Start 07/31/17 at 09:00; Stop 07/31/17 at 09:00; Status DC Olanzapine (ZyPREXA) 5 mg DAILY@1400 PO ; Start 07/31/17 at 14:00; Stop at 14:00; Status DC Risperidone (RisperDAL CONSTA) 25 mg Q2WKS IM ; Start 08/13/17 at 09:00; Status UNV Clozapine (Clozaril) 200 mg DAILY PO Last administered on 08/15/17at 09:24; Start 07/31/17 at 09:00 Clozapine (Clozaril) 500 mg QHS PO Last administered on 3/25/18at 19:35; Start 07/31/17 at 21:00 Olanzapine (ZyPREXA) 20 mg QHS PO Last administered on 07/31/17 20:28; Start 07/31/17 at 21:00; Stop 08/01/17 at 09:51; Status DC Atorvastatin Calcium (Lipitor) 10 mg QHS PO ; Start 07/31/17 at 21:00; Stop 03/10 at 21:00; Status DC Phenytoin Sodium (Dilantin) 300 mg QHS PO Last administered on 08/15/17at 19:34 ; Start 07/31/17 at 21:00 Non-Formulary Medication (Sodium Fluoride (Prevident 5000)) 1 carlee BID DT ; Start 07/31/17 at 09:00; Stop 07/31/17 at 09:00; Status DC Oxybutynin Chloride (Ditropan) 5 mg [id number] PO Last administered on 08/15/17 19 :35; Start 07/31/17 at 09:00 Quetiapine Fumarate (SEROquel) 100 mg BID PO Last administered on 08/08/17at 20: 51; Start 07/31/17 at 09:00; Stop 08/09/17 at 18:03; Status DC Acetaminophen (Tylenol) 500 mg PRN Q4HRS PRN PO PAIN Last administered on 18:02; Start 07/31/17 at 07:15 Levothyroxine Sodium (Synthroid) 200 mcg DAILY06 PO Last administered on at 06:11; Start 07/31/17 at 07:15 Fish Oil (Fish Oil) 1,000 mg DAILY PO Last administered on 07/31/17at 09:36; Start 07/31/17 at 09:00; Stop 08/01/17 at 09:51; Status DC Selenium Sulfide (Selsun) 1 carlee TWICEWEEKLY TP ; Start 07/31/17 at 07:30; Stop 07/31/17 at 14:29; Status DC Divalproex Sodium (Depakote Er) 1,000 mg QHS PO Last administered on 07/31/17at 20:26; Start 07/31/17 at 21:00; Stop 08/01/17 at 18:29; Status DC Atorvastatin Calcium (Lipitor) 10 mg QHS PO Last administered on 08/15/17 19: 35; Start 07/31/17 at 21:00 Divalproex Sodium (Depakote Er) 500 mg DAILY PO Last administered on 08/01/17at 09:10; Start 07/31/17 at 09:00; Stop 08/01/17 at 09:51; Status DC Olanzapine (ZyPREXA) 10 mg DAILY PO Last administered on 08/01/17 09:30; Start 07/31/17 at 09:00; Stop 08/01/17 at 09:51; Status DC Olanzapine (ZyPREXA) 5 mg DAILY@1400 PO Last administered on 07/31/17at 15:07; Start 07/31/17 at 14:00; Stop 08/01/17 at 09:51; Status DC Selenium Sulfide (Selsun) 1 carlee TWICEWEEKLY TP ; Start 07/31/17 at 14:29 Divalproex Sodium (Depakote Er) 750 mg DAILY PO ; Start 08/02/17 at 09:00; Stop 08/02/17 at 09:00; Status DC Divalproex Sodium (Depakote Sprinkles) 750 mg BID PO Last administered on 09:21; Start 08/01/17 at 21:00; Stop 08/04/17 at 14:28; Status DC Al Hydroxide/Mg Hydroxide (Mylanta Plus Xs) 30 ml PRN AFTMEAL PRN PO DYSPEPSIA Last administered on 08/15/17 17:05; Start 08/03/17 at 12:00 Magnesium Hydroxide (Milk Of Magnesia) 2,400 mg PRN DAILY PRN PO CONSTIPATION Last administered on 08/14/17 20:28; Start 08/03/17 at 17:00 Divalproex Sodium (Depakote Sprinkles) 1,000 mg BID PO Last administered on at 07:51; Start 08/04/17 at 21:00; Stop 08/07/17 at 18:35; Status DC Polyethylene Glycol (miraLAX) 17 gm DAILY PO Last administered on 08/14/17 09: 26; Start 08/05/17 at 09:00 Trazodone HCl (Desyrel) 100 mg QHS PO Last administered on 3/25/18at 19:35; Start 08/06/17 at 21:00 Trazodone HCl (Desyrel) 100 mg PRN QHS PRN PO INSOMNIA Last administered on at 23:20; Start 08/06/17 at 19:00 Divalproex Sodium (Depakote Sprinkles) 1,250 mg BID PO Last administered on at 20:51; Start 08/07/17 at 21:00; Stop 08/09/17 at 18:31; Status DC Quetiapine Fumarate (SEROquel) 50 mg BID PO Last administered on 08/15/17 19: 35; Start 08/09/17 at 21:00 Divalproex Sodium (Depakote Sprinkles) 1,500 mg BID PO Last administered on 08:25; Start 08/09/17 at 21:00; Stop 08/12/17 at 10:53; Status DC Trazodone HCl (Desyrel) 25 mg TID@0900,1300,1700 PO Last administered on at 17:10; Start 08/12/17 at 09:00; Stop 08/13/17 at 18:00; Status DC Divalproex Sodium (Depakote Sprinkles) 1,750 mg BID PO Last administered on 19:35; Start 08/12/17 at 21:00 Trazodone HCl (Desyrel) 25 mg BID@1300,1700 PO Last administered on 08/15/17at 17:05; Start 08/14/17 at 13:00 Trazodone HCl (Desyrel) 50 mg DAILY PO Last administered on 08/15/17 09:25; Start 08/14/17 at 09:00 Trazodone HCl (Desyrel) 50 mg 1X ONCE PO Last administered on 08/13/17 18:29 ; Start 08/13/17 at 18:30; Stop 08/13/17 at 18:31; Status DC Sertraline HCl (Zoloft) 25 mg DAILY PO Last administered on 08/15/17 09:26; Start 08/15/17 at 09:00; Stop 08/17/17 at 11:00 Sertraline HCl (Zoloft) 50 mg DAILY PO ; Start 08/18/17 at 09:00 Active Scripts Active Reported Ibuprofen 400 Mg Tablet 400 Mg PO PRN Q4HRS PRN MDD 1200mg/24hrs Lorazepam 2 Mg/1 Ml Vial 1 Mg IM BID PRN Abilify Maintena (Aripiprazole) 400 Mg Suser.vial 400 Mg IM Q4WK Next dose due 08/26/17 Paroxetine Hcl 20 Mg Tablet 10 Mg PO DAILY Abilify (Aripiprazole) 5 Mg Tablet 5 Mg PO DAILY Fenofibrate 160 Mg Tablet 160 Mg PO QHS Olanzapine 5 Mg Tablet 5 Mg PO DAILY@1400 5mg PO daily at 14:00 Methylphenidate Hcl 10 Mg Tablet 10 Mg PO BID@0900,1300 Seroquel (Quetiapine Fumarate) 100 Mg Tablet 100 Mg PO BID Prevident 5000 (Sodium Fluoride) 100 Ml Gel..ml. 1 Carlee DT BID Selenium Sulfide 180 Ml Shampoo 1 Carlee TP TWICE WEEKLY Lorazepam 1 Mg Tablet 1 Mg PO PRN BID PRN Acetaminophen 500 Mg Tablet 500 Mg PO PRN Q4HRS PRN Risperdal Consta (Risperidone Microspheres) 25 Mg/2 Ml Disp.syrin 25 Mg IM Q2WKS Phenytoin 125 Mg/5 Ml Oral.susp 300 Mg PO QHS Zyprexa (Olanzapine) 20 Mg Tablet 20 Mg PO QHS Atorvastatin Calcium 10 Mg Tablet 10 Mg PO QHS Zyprexa (Olanzapine) 5 Mg Tablet 5 Mg PO DAILY@1400 Clozapine 200 Mg Tablet 500 Mg PO QHS Clozapine 200 Mg Tablet 200 Mg PO DAILY Detrol La (Tolterodine Tartrate) 2 Mg Cap.er.24h 2 Mg PO BID Depakote Er (Divalproex Sodium) 500 Mg Tab.er.24h 500 Mg PO DAILY Depakote Er (Divalproex Sodium) 500 Mg Tab.er.24h 1,000 Mg PO QHS [place] 3 1,000 Mg Softgel ([place]-3 Fatty Acids/Fish Oil) 1 Each Capsule 1,000 Mg PO DAILY Thera-M Tablet (Multivits,Ca,Minerals/Iron/Fa) 1 Each Tablet 1 Tab PO DAILY Vitamin D3 (Cholecalciferol (Vitamin D3)) 1,000 Unit Tablet 2,000 Unit PO DAILY Olanzapine 10 Mg Tablet 10 Mg PO DAILY Miralax (Polyethylene Glycol 3350) 119 Gm Powder 17 Gm PO DAILY Levothyroxine Sodium 200 Mcg Tablet 200 Mcg PO DAILY06 Pantoprazole Sodium 40 Mg Tablet. 40 Mg PO DAILY I have reviewed the current psychotropics carefully including drug interactions. Risk benefit ratio favors no change other than as noted in my dictated progress note. Diagnosis: Problems: (1) Dementia in Alzheimer's disease with delusions (2) Impulse control disorder (3) Schizoaffective disorder, chronic condition with acute exacerbation (4) Borderline intellectual disability STEVEN AYALA MD Aug 15, 2017 20:58
[2017-08-16 06:00] VITALS: BP 108/70
[2017-08-16] MEDS: LEVOTHYROXINE 100 MCG TABLET PO SCH (06:35)
[2017-08-16 07:48] LABS: BASO # 0.1 x10^3/uL (0.0-0.2); BASO % 1 % (0-3); EOS # 0.2 x10^3/uL (0.0-0.7); EOS % 3 % (0-3); HEMATOCRIT 38.2 % (39.0-53.0); HEMOGLOBIN 12.9 g/dL (13.0-17.5); LYMPH # 2.5 x10^3/uL (1.0-4.8); LYMPH % 30 % (24-48); MEAN CORPUSCULAR HEMOGLOBIN 31 pg (25-35); MEAN CORPUSCULAR HGB CONC 34 g/dL (31-37); MEAN CORPUSCULAR VOLUME 93 fL (79-100); MONO # 0.6 x10^3/uL (0.0-1.1); MONO % 8 % (0-9); NEUT # 4.8 x10^3uL (1.8-7.7); NEUT % 59 % (31-73); PLATELET COUNT 204 x10^3/uL (140-400); RED BLOOD COUNT 4.12 x10^6/uL (4.30-5.70); RED CELL DISTRIBUTION WIDTH 13.3 % (11.5-14.5); WHITE BLOOD COUNT 8.2 x10^3/uL (4.0-11.0)
[2017-08-16 08:03] LABS: ALBUMIN 3.1 g/dL (3.4-5.0); ALBUMIN/GLOBULIN RATIO 0.8 (1.0-1.7); ALK PHOS 79 U/L (46-116); ALT (SGPT) 24 U/L (16-63); ANION GAP 10 (6-14); AST (SGOT) 20 U/L (15-37); BLOOD UREA NITROGEN 9 mg/dL (8-26); BUN/CREATININE RATIO 10 (6-20); CALCIUM 9.1 mg/dL (8.5-10.1); CARBON DIOXIDE 24 mmol/L (21-32); CHLORIDE 105 mmol/L (98-107); CREATININE 0.9 mg/dL (0.7-1.3); GFR 87.9; GLUCOSE 110 mg/dL (70-99); POTASSIUM 4.1 mmol/L (3.5-5.1); SODIUM 139 mmol/L (136-145); TOTAL BILIRUBIN 0.2 mg/dL (0.2-1.0); TOTAL PROTEIN 7.1 g/dL (6.4-8.2)
[2017-08-16 08:14] LABS: VAL ACID 46 mcg/mL (50-100)
[2017-08-16] MEDS: LORazepam 1 MG TABLET PO PRN (08:26)
[2017-08-16] MEDS: POLYETHYLENE GLYCOL 3350 17 GM PACKET. PO SCH (09:32)
[2017-08-16] MEDS: cloZAPine 100 MG TABLET PO SCH ×2 (09:32→19:24)
[2017-08-16] MEDS: DIVALPROEX 125 MG CAP.SPRINK PO SCH ×2 (09:32→19:24)
[2017-08-16] MEDS: SERTRALINE 25 MG TABLET. PO SCH (09:33)
[2017-08-16] MEDS: traZODone 50 MG TABLET. PO SCH ×3 (09:33→17:03)
[2017-08-16] MEDS: QUEtiapine 50 MG TABLET. PO SCH ×2 (09:34→19:26)
[2017-08-16] MEDS: OXYBUTYNIN CHLORIDE 5 MG TABLET PO SCH ×3 (09:34→19:26)
[2017-08-16 16:06] VITALS: BP 113/65
[2017-08-16] MEDS: traZODone 100 MG TABLET. PO SCH (19:25)
[2017-08-16] MEDS: PHENYTOIN SODIUM EXTENDED 100 MG CAPSULE PO SCH (19:26)
[2017-08-16] MEDS: ATORVASTATIN CALCIUM 10 MG TABLET. PO SCH (19:26)
--- NOTE | 2017-08-16 20:55 | PDOC ---
Exam Note: Chad Note: Please also refer to the separate dictated note~for this date of service dictated separately.~Patient seen individually. Discussed the patient with Nursing staff reviewed the chart.~Reviewed interim history and current functioning. Reviewed vital signs,~Labs/ Radiology~and current medications noted below. Continue current treatment with the changes noted in the dictated addendum note Assessment: Vital Signs: Vital Signs Date Time Temp Pulse Resp B/P (MAP) Pulse Ox O2 Delivery O2 Flow Rate FiO2 08/16/17 16:06 97.5 75 20 113/65 (81) 100 I&O Intake and Output 08/16/17 07:00 Intake Total 1445 ml Balance 1445 ml Intake Oral 1445 ml # Bowel Movements 2 Labs: Laboratory Tests Test 08/16/17 07:14 White Blood Count 8.2 x10^3/uL (4.0-11.0) # Red Blood Count 4.12 x10^6/uL (4.30-5.70) L Hemoglobin 12.9 g/dL (13.0-17.5) L Hematocrit 38.2 % (39.0-53.0) L Mean Corpuscular Volume 93 fL (79-100) Mean Corpuscular Hemoglobin 31 pg (25-35) Mean Corpuscular Hemoglobin Concent 34 g/dL (31-37) Red Cell Distribution Width 13.3 % (11.5-14.5) Platelet Count 204 x10^3/uL (140-400) Neutrophils (%) (Auto) 59 % (31-73) Lymphocytes (%) (Auto) 30 % (24-48) Monocytes (%) (Auto) 8 % (0-9) Eosinophils (%) (Auto) 3 % (0-3) Basophils (%) (Auto) 1 % (0-3) Neutrophils # (Auto) 4.8 x10^3uL (1.8-7.7) Lymphocytes # (Auto) 2.5 x10^3/uL (1.0-4.8) Monocytes # (Auto) 0.6 x10^3/uL (0.0-1.1) Eosinophils # (Auto) 0.2 x10^3/uL (0.0-0.7) Basophils # (Auto) 0.1 x10^3/uL (0.0-0.2) Sodium Level 139 mmol/L (136-145) Potassium Level 4.1 mmol/L (3.5-5.1) Chloride Level 105 mmol/L (98-107) Carbon Dioxide Level 24 mmol/L (21-32) Anion Gap 10 (6-14) Blood Urea Nitrogen 9 mg/dL (8-26) Creatinine 0.9 mg/dL (0.7-1.3) Estimated GFR (Cockcroft-Gault) 87.9 BUN/Creatinine Ratio 10 (6-20) Glucose Level 110 mg/dL (70-99) H Calcium Level 9.1 mg/dL (8.5-10.1) Magnesium Level 2.0 mg/dL (1.8-2.4) Total Bilirubin 0.2 mg/dL (0.2-1.0) Aspartate Amino Transferase (AST) 20 U/L (15-37) Alanine Aminotransferase (ALT) 24 U/L (16-63) Alkaline Phosphatase 79 U/L (46-116) Total Protein 7.1 g/dL (6.4-8.2) Albumin 3.1 g/dL (3.4-5.0) L Albumin/Globulin Ratio 0.8 (1.0-1.7) L Valproic Acid Level 46 mcg/mL (50-100) L Valproic Acid Last Dose Date 08/15/17 Valproic Acid Last Dose Time 2100 Current Medications: Meds: Current Medications Valproic Acid (Depakene) 500 mg STAT PO Last administered on 07/30/17at 21:21; Start 07/30/17 at 20:49; Stop 08/01/17 at 15:23; Status DC Divalproex Sodium (Depakote Er) 1,000 mg QHS PO ; Start 07/31/17 at 21:00; Stop 07/31/17 at 21:00; Status DC Divalproex Sodium (Depakote Er) 500 mg DAILY PO ; Start 07/31/17 at 09:00; Stop 07/31/17 at 09:00; Status DC Lorazepam (Ativan) 1 mg PRN BID PRN PO ANXIETY / AGITATION Last administered on 08/16/17at 08:26; Start 07/30/17 at 23:00 Olanzapine (ZyPREXA) 10 mg DAILY PO ; Start 07/31/17 at 09:00; Stop 07/31/17 at 09:00; Status DC Olanzapine (ZyPREXA) 5 mg DAILY@1400 PO ; Start 07/31/17 at 14:00; Stop at 14:00; Status DC Risperidone (RisperDAL CONSTA) 25 mg Q2WKS IM ; Start 08/13/17 at 09:00; Status UNV Clozapine (Clozaril) 200 mg DAILY PO Last administered on 08/16/17 09:32; Start 07/31/17 at 09:00 Clozapine (Clozaril) 500 mg QHS PO Last administered on 08/16/17 19:24; Start 07/31/17 at 21:00 Olanzapine (ZyPREXA) 20 mg QHS PO Last administered on 07/31/17 20:28; Start 07/31/17 at 21:00; Stop 08/01/17 at 09:51; Status DC Atorvastatin Calcium (Lipitor) 10 mg QHS PO ; Start 07/31/17 at 21:00; Stop 03/10 at 21:00; Status DC Phenytoin Sodium (Dilantin) 300 mg QHS PO Last administered on 08/16/17 19:26 ; Start 07/31/17 at 21:00 Non-Formulary Medication (Sodium Fluoride (Prevident 5000)) 1 carlee BID DT ; Start 07/31/17 at 09:00; Stop 07/31/17 at 09:00; Status DC Oxybutynin Chloride (Ditropan) 5 mg [id number] PO Last administered on 08/16/17 19 :26; Start 07/31/17 at 09:00 Quetiapine Fumarate (SEROquel) 100 mg BID PO Last administered on 08/08/17 20: 51; Start 07/31/17 at 09:00; Stop 08/09/17 at 18:03; Status DC Acetaminophen (Tylenol) 500 mg PRN Q4HRS PRN PO PAIN Last administered on 18:02; Start 07/31/17 at 07:15 Levothyroxine Sodium (Synthroid) 200 mcg DAILY06 PO Last administered on 06:35; Start 07/31/17 at 07:15 Fish Oil (Fish Oil) 1,000 mg DAILY PO Last administered on 3/10/18at 09:36; Start 07/31/17 at 09:00; Stop 08/01/17 at 09:51; Status DC Selenium Sulfide (Selsun) 1 carlee TWICEWEEKLY TP ; Start 07/31/17 at 07:30; Stop 07/31/17 at 14:29; Status DC Divalproex Sodium (Depakote Er) 1,000 mg QHS PO Last administered on 07/31/17at 20:26; Start 07/31/17 at 21:00; Stop 08/01/17 at 18:29; Status DC Atorvastatin Calcium (Lipitor) 10 mg QHS PO Last administered on 08/16/17at 19: 26; Start 07/31/17 at 21:00 Divalproex Sodium (Depakote Er) 500 mg DAILY PO Last administered on 08/01/17at 09:10; Start 07/31/17 at 09:00; Stop 08/01/17 at 09:51; Status DC Olanzapine (ZyPREXA) 10 mg DAILY PO Last administered on 08/01/17at 09:30; Start 07/31/17 at 09:00; Stop 08/01/17 at 09:51; Status DC Olanzapine (ZyPREXA) 5 mg DAILY@1400 PO Last administered on 07/31/17at 15:07; Start 07/31/17 at 14:00; Stop 08/01/17 at 09:51; Status DC Selenium Sulfide (Selsun) 1 carlee TWICEWEEKLY TP ; Start 07/31/17 at 14:29 Divalproex Sodium (Depakote Er) 750 mg DAILY PO ; Start 08/02/17 at 09:00; Stop 08/02/17 at 09:00; Status DC Divalproex Sodium (Depakote Sprinkles) 750 mg BID PO Last administered on at 09:21; Start 08/01/17 at 21:00; Stop 08/04/17 at 14:28; Status DC Al Hydroxide/Mg Hydroxide (Mylanta Plus Xs) 30 ml PRN AFTMEAL PRN PO DYSPEPSIA Last administered on 08/15/17at 17:05; Start 08/03/17 at 12:00 Magnesium Hydroxide (Milk Of Magnesia) 2,400 mg PRN DAILY PRN PO CONSTIPATION Last administered on 08/14/17at 20:28; Start 08/03/17 at 17:00 Divalproex Sodium (Depakote Sprinkles) 1,000 mg BID PO Last administered on at 07:51; Start 08/04/17 at 21:00; Stop 08/07/17 at 18:35; Status DC Polyethylene Glycol (miraLAX) 17 gm DAILY PO Last administered on 08/16/17 09: 32; Start 08/05/17 at 09:00 Trazodone HCl (Desyrel) 100 mg QHS PO Last administered on 08/16/17 19:25; Start 08/06/17 at 21:00 Trazodone HCl (Desyrel) 100 mg PRN QHS PRN PO INSOMNIA Last administered on 23:20; Start 08/06/17 at 19:00 Divalproex Sodium (Depakote Sprinkles) 1,250 mg BID PO Last administered on 20:51; Start 08/07/17 at 21:00; Stop 08/09/17 at 18:31; Status DC Quetiapine Fumarate (SEROquel) 50 mg BID PO Last administered on 08/16/17 19: 26; Start 08/09/17 at 21:00 Divalproex Sodium (Depakote Sprinkles) 1,500 mg BID PO Last administered on 08:25; Start 08/09/17 at 21:00; Stop 08/12/17 at 10:53; Status DC Trazodone HCl (Desyrel) 25 mg TID@0900,1300,1700 PO Last administered on 17:10; Start 08/12/17 at 09:00; Stop 08/13/17 at 18:00; Status DC Divalproex Sodium (Depakote Sprinkles) 1,750 mg BID PO Last administered on 09:32; Start 08/12/17 at 21:00; Stop 08/16/17 at 18:48; Status DC Trazodone HCl (Desyrel) 25 mg BID@1300,1700 PO Last administered on 08/16/17 17:03; Start 08/14/17 at 13:00 Trazodone HCl (Desyrel) 50 mg DAILY PO Last administered on 08/16/17at 09:33; Start 08/14/17 at 09:00 Trazodone HCl (Desyrel) 50 mg 1X ONCE PO Last administered on 08/13/17at 18:29 ; Start 08/13/17 at 18:30; Stop 08/13/17 at 18:31; Status DC Sertraline HCl (Zoloft) 25 mg DAILY PO Last administered on 08/16/17at 09:33; Start 08/15/17 at 09:00; Stop 08/17/17 at 11:00 Sertraline HCl (Zoloft) 50 mg DAILY PO ; Start 08/18/17 at 09:00 Divalproex Sodium (Depakote Sprinkles) 2,000 mg BID PO Last administered on at 19:24; Start 08/16/17 at 21:00 Buspirone HCl (Buspar) 5 mg TID@0900,1300,1700 PO ; Start 08/17/17 at 09:00 Active Scripts Active Reported Ibuprofen 400 Mg Tablet 400 Mg PO PRN Q4HRS PRN MDD 1200mg/24hrs Lorazepam 2 Mg/1 Ml Vial 1 Mg IM BID PRN Abilify Maintena (Aripiprazole) 400 Mg Suser.vial 400 Mg IM Q4WK Next dose due 08/26/17 Paroxetine Hcl 20 Mg Tablet 10 Mg PO DAILY Abilify (Aripiprazole) 5 Mg Tablet 5 Mg PO DAILY Fenofibrate 160 Mg Tablet 160 Mg PO QHS Olanzapine 5 Mg Tablet 5 Mg PO DAILY@1400 5mg PO daily at 14:00 Methylphenidate Hcl 10 Mg Tablet 10 Mg PO BID@0900,1300 Seroquel (Quetiapine Fumarate) 100 Mg Tablet 100 Mg PO BID Prevident 5000 (Sodium Fluoride) 100 Ml Gel..ml. 1 Carlee DT BID Selenium Sulfide 180 Ml Shampoo 1 Carlee TP TWICE WEEKLY Lorazepam 1 Mg Tablet 1 Mg PO PRN BID PRN Acetaminophen 500 Mg Tablet 500 Mg PO PRN Q4HRS PRN Risperdal Consta (Risperidone Microspheres) 25 Mg/2 Ml Disp.syrin 25 Mg IM Q2WKS Phenytoin 125 Mg/5 Ml Oral.susp 300 Mg PO QHS Zyprexa (Olanzapine) 20 Mg Tablet 20 Mg PO QHS Atorvastatin Calcium 10 Mg Tablet 10 Mg PO QHS Zyprexa (Olanzapine) 5 Mg Tablet 5 Mg PO DAILY@1400 Clozapine 200 Mg Tablet 500 Mg PO QHS Clozapine 200 Mg Tablet 200 Mg PO DAILY Detrol La (Tolterodine Tartrate) 2 Mg Cap.er.24h 2 Mg PO BID Depakote Er (Divalproex Sodium) 500 Mg Tab.er.24h 500 Mg PO DAILY Depakote Er (Divalproex Sodium) 500 Mg Tab.er.24h 1,000 Mg PO QHS Patten 3 1,000 Mg Softgel (Patten-3 Fatty Acids/Fish Oil) 1 Each Capsule 1,000 Mg PO DAILY Thera-M Tablet (Multivits,Ca,Minerals/Iron/Fa) 1 Each Tablet 1 Tab PO DAILY Vitamin D3 (Cholecalciferol (Vitamin D3)) 1,000 Unit Tablet 2,000 Unit PO DAILY Olanzapine 10 Mg Tablet 10 Mg PO DAILY Miralax (Polyethylene Glycol 3350) 119 Gm Powder 17 Gm PO DAILY Levothyroxine Sodium 200 Mcg Tablet 200 Mcg PO DAILY06 Pantoprazole Sodium 40 Mg Tablet. 40 Mg PO DAILY I have reviewed the current psychotropics carefully including drug interactions. Risk benefit ratio favors no change other than as noted in my dictated progress note. Diagnosis: Problems: (1) Dementia in Alzheimer's disease with delusions (2) Impulse control disorder (3) Schizoaffective disorder, chronic condition with acute exacerbation (4) Borderline intellectual disability STEVEN AYALA MD Aug 16, 2017 20:55
--- NOTE | 2017-08-16 22:43 | PN ---
DATE: 08/14/2017 This is a late entry, 08/14/2017, covers the elements not covered in my initial note, 08/14/2017. SUBJECTIVE: I met with the patient evening of 08/14/2017. The patient did little better previous evening, still extremely obsessive, ruminative about his bowel and stomach problems. He has been somewhat paranoid, suspicious, believes one of the other patients punched him in the stomach and intermittently agitated. REVIEW OF SYSTEMS: Positive for the GI problems. No CV, , pulmonary, eye system symptoms on review. Reliability poor. MENTAL STATUS EXAM: Oriented to himself. Insight, judgment, recent and remote memory, attention, concentration, fund of knowledge poor, consistent with his diagnosis. Somewhat loud repetitive in his verbalizations. LABORATORY DATA: Reviewed. IMPRESSION: Schizoaffective disorder, bipolar type. Intellectual disability. Rest unchanged from initial note. PLAN: Given his marked obsessive compulsive disorder symptoms, had considered starting Luvox 25 mg a day, increasing to 50 mg a day, but there is a drug interaction with the Clozaril and in place of Luvox, we will start Zoloft 25 mg a day, increasing gradually to 50 mg a day as there is no drug interactions with this and this should help some of his obsessive anxiety symptoms as well. Adjust further as clinically indicated. MAN Suleman AYALA MD DR: ADALBERTO/garry JOB#: [id number] / [id number]
--- NOTE | 2017-08-16 23:03 | PN ---
DATE: 08/15/2017 This is a late entry for 08/15/2017 and covers the elements not covered in my initial note of 08/15/2017. SUBJECTIVE: I met with the patient in the evening of 08/15/2017. Per nursing report, the patient has been obsessed with his bowels during the day. EKG is still to be completed. Zoloft was started in place of the possible drug interaction between Luvox and Clozaril. At times, he gets frustrated, made a statement to the nursing staff that he might as well kill himself. He was placed in the separate hallway then did better. No active suicidal ideation as I met with him. REVIEW OF SYSTEMS: Positive for the obsession with bowel. No CV, , pulmonary, eye, ENT system symptoms on review. MENTAL STATUS EXAM: Oriented to himself and situation. Speech, less pressured. Abstraction fair, computation impaired, language function intact, attention span short. Mood and affect remain somewhat labile. LABORATORY DATA: Reviewed. IMPRESSION: Schizoaffective disorder, bipolar type, mixed with psychotic features, intellectual disability. Rest unchanged. PLAN: Continue current psychotropics. Valproic acid level is 46. Depakote has been increased to 1750 b.i.d. Check labs level, adjust to reach a therapeutic level. Check an EKG since we started Zoloft for his OCD anxiety symptoms. STEVEN AYALA MD DR: ADALBERTO/garry JOB#: [id number] / [id number]
[2017-08-17 06:01] VITALS: BP 122/66
[2017-08-17] MEDS: LEVOTHYROXINE 100 MCG TABLET PO SCH (06:18)
[2017-08-17] MEDS: cloZAPine 100 MG TABLET PO SCH ×2 (07:47→19:36)
[2017-08-17] MEDS: QUEtiapine 50 MG TABLET. PO SCH ×2 (07:47→19:35)
[2017-08-17] MEDS: SERTRALINE 25 MG TABLET. PO SCH (07:47)
[2017-08-17] MEDS: POLYETHYLENE GLYCOL 3350 17 GM PACKET. PO SCH (07:47)
[2017-08-17] MEDS: OXYBUTYNIN CHLORIDE 5 MG TABLET PO SCH ×3 (07:47→19:35)
[2017-08-17] MEDS: traZODone 50 MG TABLET. PO SCH ×4 (07:47→17:22)
[2017-08-17] MEDS: busPIRone 5 MG TABLET. PO SCH ×3 (07:48→17:22)
[2017-08-17] MEDS: DIVALPROEX 125 MG CAP.SPRINK PO SCH ×2 (07:49→19:35)
[2017-08-17] MEDS: MAG HYDROX/AL HYDROX/SIMETH 30 ML ORAL.SUSP PO PRN (14:04)
[2017-08-17] MEDS: ACETAMINOPHEN 500 MG TABLET PO PRN ×2 (14:31→22:02)
[2017-08-17 16:07] VITALS: BP 125/74
[2017-08-17] MEDS: ATORVASTATIN CALCIUM 10 MG TABLET. PO SCH (19:34)
[2017-08-17] MEDS: traZODone 100 MG TABLET. PO SCH (19:34)
[2017-08-17] MEDS: PHENYTOIN SODIUM EXTENDED 100 MG CAPSULE PO SCH (19:35)
--- NOTE | 2017-08-17 20:01 | PN ---
DATE: 08/16/2017 PSYCHIATRIC PROGRESS NOTE This is a late entry 08/16/2017 covers elements not covered in my initial note 08/16/2017. SUBJECTIVE: I met with the patient evening of 08/16/2017. Overall, the patient has been somewhat labile in his mood in the morning, described by nursing staff as having had a "bad" morning. He was obsessed with his bowel in the morning, digging in his rectal area, yelling in the day room, put himself on the floor a few times and was angry, verbally aggressive towards the staff member, "I hope your brains get blown out." This was evident after lunch. He had several bowel movements, still obsessed about the constipation, quite anxious. REVIEW OF SYSTEMS: Other than GI symptoms, no CV, , pulmonary, eye system symptoms on review. Has vague somatic symptoms. MENTAL STATUS EXAM: Oriented to himself. Insight, judgment, recent memory is impaired. Language function intact. Attention span short. Mood and affect labile, somewhat paranoid, delusional. LABORATORY DATA: Reviewed. IMPRESSION: Schizoaffective disorder, bipolar type, mixed with psychotic features, intellectual disability. Rest unchanged. PLAN: Valproic acid level is 46. Increase Depakote Sprinkles from 1750 b.i.d. to 2 grams twice a day. Check CBC, CMP, valproic acid level in 3 days. Start BuSpar 5 mg 3 times a day to help with his anxiety, mood lability. Rest unchanged. STEVEN AYALA MD DR: ADALBERTO/garry JOB#: [id number] / [id number]
--- NOTE | 2017-08-17 20:48 | PDOC ---
Exam Note: Hcad Note: Please also refer to the separate dictated note~for this date of service dictated separately.~Patient seen individually. Discussed the patient with Nursing staff reviewed the chart.~Reviewed interim history and current functioning. Reviewed vital signs,~Labs/ Radiology~and current medications noted below. Continue current treatment with the changes noted in the dictated addendum note Assessment: Vital Signs: Vital Signs Date Time Temp Pulse Resp B/P (MAP) Pulse Ox O2 Delivery O2 Flow Rate FiO2 08/17/17 16:07 97.9 109 18 125/74 (91) 98 I&O Intake and Output 08/17/17 07:00 Intake Total 1080 ml Balance 1080 ml Intake Oral 1080 ml # Bowel Movements 2 Current Medications: Meds: Current Medications Valproic Acid (Depakene) 500 mg STAT PO Last administered on 07/30/17at 21:21; Start 07/30/17 at 20:49; Stop 08/01/17 at 15:23; Status DC Divalproex Sodium (Depakote Er) 1,000 mg QHS PO ; Start 07/31/17 at 21:00; Stop 07/31/17 at 21:00; Status DC Divalproex Sodium (Depakote Er) 500 mg DAILY PO ; Start 07/31/17 at 09:00; Stop 07/31/17 at 09:00; Status DC Lorazepam (Ativan) 1 mg PRN BID PRN PO ANXIETY / AGITATION Last administered on 08/16/17at 08:26; Start 07/30/17 at 23:00 Olanzapine (ZyPREXA) 10 mg DAILY PO ; Start 07/31/17 at 09:00; Stop 07/31/17 at 09:00; Status DC Olanzapine (ZyPREXA) 5 mg DAILY@1400 PO ; Start 07/31/17 at 14:00; Stop at 14:00; Status DC Risperidone (RisperDAL CONSTA) 25 mg Q2WKS IM ; Start 08/13/17 at 09:00; Status UNV Clozapine (Clozaril) 200 mg DAILY PO Last administered on 08/17/17at 07:47; Start 07/31/17 at 09:00 Clozapine (Clozaril) 500 mg QHS PO Last administered on 08/17/17at 19:36; Start 07/31/17 at 21:00 Olanzapine (ZyPREXA) 20 mg QHS PO Last administered on 07/31/17 20:28; Start 07/31/17 at 21:00; Stop 08/01/17 at 09:51; Status DC Atorvastatin Calcium (Lipitor) 10 mg QHS PO ; Start 07/31/17 at 21:00; Stop 03/10 at 21:00; Status DC Phenytoin Sodium (Dilantin) 300 mg QHS PO Last administered on 08/17/17at 19:35 ; Start 07/31/17 at 21:00 Non-Formulary Medication (Sodium Fluoride (Prevident 5000)) 1 carlee BID DT ; Start 07/31/17 at 09:00; Stop 07/31/17 at 09:00; Status DC Oxybutynin Chloride (Ditropan) 5 mg VHG230 PO Last administered on 08/17/17at 19 :35; Start 07/31/17 at 09:00 Quetiapine Fumarate (SEROquel) 100 mg BID PO Last administered on 08/08/17at 20: 51; Start 07/31/17 at 09:00; Stop 08/09/17 at 18:03; Status DC Acetaminophen (Tylenol) 500 mg PRN Q4HRS PRN PO PAIN Last administered on 14:31; Start 07/31/17 at 07:15 Levothyroxine Sodium (Synthroid) 200 mcg DAILY06 PO Last administered on 06:18; Start 07/31/17 at 07:15 Fish Oil (Fish Oil) 1,000 mg DAILY PO Last administered on 07/31/17at 09:36; Start 07/31/17 at 09:00; Stop 08/01/17 at 09:51; Status DC Selenium Sulfide (Selsun) 1 carlee TWICEWEEKLY TP ; Start 07/31/17 at 07:30; Stop 07/31/17 at 14:29; Status DC Divalproex Sodium (Depakote Er) 1,000 mg QHS PO Last administered on 07/31/17at 20:26; Start 07/31/17 at 21:00; Stop 08/01/17 at 18:29; Status DC Atorvastatin Calcium (Lipitor) 10 mg QHS PO Last administered on 08/17/17at 19: 34; Start 07/31/17 at 21:00 Divalproex Sodium (Depakote Er) 500 mg DAILY PO Last administered on 08/01/17at 09:10; Start 07/31/17 at 09:00; Stop 08/01/17 at 09:51; Status DC Olanzapine (ZyPREXA) 10 mg DAILY PO Last administered on 08/01/17at 09:30; Start 07/31/17 at 09:00; Stop 08/01/17 at 09:51; Status DC Olanzapine (ZyPREXA) 5 mg DAILY@1400 PO Last administered on 07/31/17at 15:07; Start 07/31/17 at 14:00; Stop 08/01/17 at 09:51; Status DC Selenium Sulfide (Selsun) 1 carlee TWICEWEEKLY TP ; Start 07/31/17 at 14:29 Divalproex Sodium (Depakote Er) 750 mg DAILY PO ; Start 08/02/17 at 09:00; Stop 08/02/17 at 09:00; Status DC Divalproex Sodium (Depakote Sprinkles) 750 mg BID PO Last administered on at 09:21; Start 08/01/17 at 21:00; Stop 08/04/17 at 14:28; Status DC Al Hydroxide/Mg Hydroxide (Mylanta Plus Xs) 30 ml PRN AFTMEAL PRN PO DYSPEPSIA Last administered on 08/17/17at 14:04; Start 08/03/17 at 12:00 Magnesium Hydroxide (Milk Of Magnesia) 2,400 mg PRN DAILY PRN PO CONSTIPATION Last administered on 08/14/17at 20:28; Start 08/03/17 at 17:00 Divalproex Sodium (Depakote Sprinkles) 1,000 mg BID PO Last administered on at 07:51; Start 08/04/17 at 21:00; Stop 08/07/17 at 18:35; Status DC Polyethylene Glycol (miraLAX) 17 gm DAILY PO Last administered on 08/17/17at 07: 47; Start 08/05/17 at 09:00 Trazodone HCl (Desyrel) 100 mg QHS PO Last administered on 08/17/17at 19:34; Start 08/06/17 at 21:00 Trazodone HCl (Desyrel) 100 mg PRN QHS PRN PO INSOMNIA Last administered on at 23:20; Start 08/06/17 at 19:00 Divalproex Sodium (Depakote Sprinkles) 1,250 mg BID PO Last administered on at 20:51; Start 08/07/17 at 21:00; Stop 08/09/17 at 18:31; Status DC Quetiapine Fumarate (SEROquel) 50 mg BID PO Last administered on 08/17/17at 19: 35; Start 08/09/17 at 21:00 Divalproex Sodium (Depakote Sprinkles) 1,500 mg BID PO Last administered on at 08:25; Start 08/09/17 at 21:00; Stop 08/12/17 at 10:53; Status DC Trazodone HCl (Desyrel) 25 mg TID@0900,1300,1700 PO Last administered on at 17:10; Start 08/12/17 at 09:00; Stop 08/13/17 at 18:00; Status DC Divalproex Sodium (Depakote Sprinkles) 1,750 mg BID PO Last administered on at 09:32; Start 08/12/17 at 21:00; Stop 08/16/17 at 18:48; Status DC Trazodone HCl (Desyrel) 25 mg BID@1300,1700 PO Last administered on 08/17/17at 17:22; Start 08/14/17 at 13:00 Trazodone HCl (Desyrel) 50 mg DAILY PO Last administered on 08/17/17at 07:47; Start 08/14/17 at 09:00 Trazodone HCl (Desyrel) 50 mg 1X ONCE PO Last administered on 08/13/17at 18:29 ; Start 08/13/17 at 18:30; Stop 08/13/17 at 18:31; Status DC Sertraline HCl (Zoloft) 25 mg DAILY PO Last administered on 08/17/17at 07:47; Start 08/15/17 at 09:00; Stop 08/17/17 at 11:00; Status DC Sertraline HCl (Zoloft) 50 mg DAILY PO ; Start 08/18/17 at 09:00 Divalproex Sodium (Depakote Sprinkles) 2,000 mg BID PO Last administered on at 19:35; Start 08/16/17 at 21:00 Buspirone HCl (Buspar) 5 mg TID@0900,1300,1700 PO Last administered on at 17:22; Start 08/17/17 at 09:00 Active Scripts Active Reported Ibuprofen 400 Mg Tablet 400 Mg PO PRN Q4HRS PRN MDD 1200mg/24hrs Lorazepam 2 Mg/1 Ml Vial 1 Mg IM BID PRN Abilify Maintena (Aripiprazole) 400 Mg Suser.vial 400 Mg IM Q4WK Next dose due 08/26/17 Paroxetine Hcl 20 Mg Tablet 10 Mg PO DAILY Abilify (Aripiprazole) 5 Mg Tablet 5 Mg PO DAILY Fenofibrate 160 Mg Tablet 160 Mg PO QHS Olanzapine 5 Mg Tablet 5 Mg PO DAILY@1400 5mg PO daily at 14:00 Methylphenidate Hcl 10 Mg Tablet 10 Mg PO BID@0900,1300 Seroquel (Quetiapine Fumarate) 100 Mg Tablet 100 Mg PO BID Prevident 5000 (Sodium Fluoride) 100 Ml Gel..ml. 1 Carlee DT BID Selenium Sulfide 180 Ml Shampoo 1 Carlee TP TWICE WEEKLY Lorazepam 1 Mg Tablet 1 Mg PO PRN BID PRN Acetaminophen 500 Mg Tablet 500 Mg PO PRN Q4HRS PRN Risperdal Consta (Risperidone Microspheres) 25 Mg/2 Ml Disp.syrin 25 Mg IM Q2WKS Phenytoin 125 Mg/5 Ml Oral.susp 300 Mg PO QHS Zyprexa (Olanzapine) 20 Mg Tablet 20 Mg PO QHS Atorvastatin Calcium 10 Mg Tablet 10 Mg PO QHS Zyprexa (Olanzapine) 5 Mg Tablet 5 Mg PO DAILY@1400 Clozapine 200 Mg Tablet 500 Mg PO QHS Clozapine 200 Mg Tablet 200 Mg PO DAILY Detrol La (Tolterodine Tartrate) 2 Mg Cap.er.24h 2 Mg PO BID Depakote Er (Divalproex Sodium) 500 Mg Tab.er.24h 500 Mg PO DAILY Depakote Er (Divalproex Sodium) 500 Mg Tab.er.24h 1,000 Mg PO QHS Wister 3 1,000 Mg Softgel (Wister-3 Fatty Acids/Fish Oil) 1 Each Capsule 1,000 Mg PO DAILY Thera-M Tablet (Multivits,Ca,Minerals/Iron/Fa) 1 Each Tablet 1 Tab PO DAILY Vitamin D3 (Cholecalciferol (Vitamin D3)) 1,000 Unit Tablet 2,000 Unit PO DAILY Olanzapine 10 Mg Tablet 10 Mg PO DAILY Miralax (Polyethylene Glycol 3350) 119 Gm Powder 17 Gm PO DAILY Levothyroxine Sodium 200 Mcg Tablet 200 Mcg PO DAILY06 Pantoprazole Sodium 40 Mg Tablet.dr 40 Mg PO DAILY I have reviewed the current psychotropics carefully including drug interactions. Risk benefit ratio favors no change other than as noted in my dictated progress note. Diagnosis: Problems: (1) Dementia in Alzheimer's disease with delusions (2) Impulse control disorder (3) Schizoaffective disorder, chronic condition with acute exacerbation (4) Borderline intellectual disability STEVEN AYALA MD Aug 17, 2017 20:48
[2017-08-18 05:58] VITALS: BP 122/63
[2017-08-18] MEDS: LEVOTHYROXINE 100 MCG TABLET PO SCH (06:12)
[2017-08-18] MEDS: POLYETHYLENE GLYCOL 3350 17 GM PACKET. PO SCH (08:16)
[2017-08-18] MEDS: DIVALPROEX 125 MG CAP.SPRINK PO SCH ×2 (08:16→19:28)
[2017-08-18] MEDS: QUEtiapine 50 MG TABLET. PO SCH ×2 (08:17→19:35)
[2017-08-18] MEDS: cloZAPine 100 MG TABLET PO SCH ×2 (08:17→19:34)
[2017-08-18] MEDS: busPIRone 5 MG TABLET. PO SCH ×3 (08:17→17:27)
[2017-08-18] MEDS: traZODone 50 MG TABLET. PO SCH ×3 (08:17→17:27)
[2017-08-18] MEDS: OXYBUTYNIN CHLORIDE 5 MG TABLET PO SCH ×3 (08:17→19:34)
[2017-08-18] MEDS: SERTRALINE 25 MG TABLET. PO SCH (08:18)
--- NOTE | 2017-08-18 09:32 | RAD ---
Indication: Assess for intracranial lesion. Increased psychosis. Technique: CT head without IV contrast Comparison: None Findings: No pathologic extra-axial or intra-axial fluid collection. Mild diffuse cerebral volume loss noted. The ventricles and basal cisterns are within normal limits. No acute intracranial bleed. No focal loss of perez-white association. Visualized orbits are within normal limits. No calvarial lesions. Mucus retention cyst or polyp is seen in the right frontal sinus. Mucoperiosteal thickening seen in the left frontal sinus. Partial opacification of the ethmoid air cells. Impression: 1. No acute intracranial process on this noncontrast CT. 2. Frontal and ethmoid sinus disease. PQRS Compliance Statement: One or more of the following individualized dose reduction techniques were utilized for this examination: 1. Automated exposure control 2. Adjustment of the mA and/or kV according to patient size 3. Use of iterative reconstruction technique
[2017-08-18] MEDS: MAG HYDROX/AL HYDROX/SIMETH 30 ML ORAL.SUSP PO PRN (13:02)
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
[2017-08-18 16:25] VITALS: BP 119/77
[2017-08-18] MEDS: ACETAMINOPHEN 500 MG TABLET PO PRN (18:50)
[2017-08-18] MEDS: ATORVASTATIN CALCIUM 10 MG TABLET. PO SCH (19:34)
[2017-08-18] MEDS: traZODone 100 MG TABLET. PO SCH (19:34)
[2017-08-18] MEDS: PHENYTOIN SODIUM EXTENDED 100 MG CAPSULE PO SCH (19:34)
--- NOTE | 2017-08-18 20:56 | PDOC ---
Exam Note: Chad Note: Please also refer to the separate dictated note~for this date of service dictated separately.~Patient seen individually. Discussed the patient with Nursing staff reviewed the chart.~Reviewed interim history and current functioning. Reviewed vital signs,~Labs/ Radiology~and current medications noted below. Continue current treatment with the changes noted in the dictated addendum note Assessment: Vital Signs: Vital Signs Date Time Temp Pulse Resp B/P (MAP) Pulse Ox O2 Delivery O2 Flow Rate FiO2 08/18/17 16:25 97.7 94 19 119/77 (91) 97 I&O Intake and Output 08/18/17 07:00 Intake Total 600 ml Balance 600 ml Intake Oral 600 ml # Bowel Movements 1 Current Medications: Meds: Current Medications Valproic Acid (Depakene) 500 mg STAT PO Last administered on 07/30/17at 21:21; Start 07/30/17 at 20:49; Stop 08/01/17 at 15:23; Status DC Divalproex Sodium (Depakote Er) 1,000 mg QHS PO ; Start 07/31/17 at 21:00; Stop 07/31/17 at 21:00; Status DC Divalproex Sodium (Depakote Er) 500 mg DAILY PO ; Start 07/31/17 at 09:00; Stop 07/31/17 at 09:00; Status DC Lorazepam (Ativan) 1 mg PRN BID PRN PO ANXIETY / AGITATION Last administered on 08/16/17at 08:26; Start 07/30/17 at 23:00 Olanzapine (ZyPREXA) 10 mg DAILY PO ; Start 07/31/17 at 09:00; Stop 07/31/17 at 09:00; Status DC Olanzapine (ZyPREXA) 5 mg DAILY@1400 PO ; Start 07/31/17 at 14:00; Stop at 14:00; Status DC Risperidone (RisperDAL CONSTA) 25 mg Q2WKS IM ; Start 08/13/17 at 09:00; Status UNV Clozapine (Clozaril) 200 mg DAILY PO Last administered on 08/18/17at 08:17; Start 07/31/17 at 09:00 Clozapine (Clozaril) 500 mg QHS PO Last administered on 08/18/17at 19:34; Start 07/31/17 at 21:00 Olanzapine (ZyPREXA) 20 mg QHS PO Last administered on 07/31/17 20:28; Start 07/31/17 at 21:00; Stop 08/01/17 at 09:51; Status DC Atorvastatin Calcium (Lipitor) 10 mg QHS PO ; Start 07/31/17 at 21:00; Stop 03/10 at 21:00; Status DC Phenytoin Sodium (Dilantin) 300 mg QHS PO Last administered on 08/18/17 19:34 ; Start 07/31/17 at 21:00 Non-Formulary Medication (Sodium Fluoride (Prevident 5000)) 1 carlee BID DT ; Start 07/31/17 at 09:00; Stop 07/31/17 at 09:00; Status DC Oxybutynin Chloride (Ditropan) 5 mg [id number] PO Last administered on 08/18/17 19 :34; Start 07/31/17 at 09:00 Quetiapine Fumarate (SEROquel) 100 mg BID PO Last administered on 08/08/17at 20: 51; Start 07/31/17 at 09:00; Stop 08/09/17 at 18:03; Status DC Acetaminophen (Tylenol) 500 mg PRN Q4HRS PRN PO PAIN Last administered on 18:50; Start 07/31/17 at 07:15 Levothyroxine Sodium (Synthroid) 200 mcg DAILY06 PO Last administered on 06:12; Start 07/31/17 at 07:15 Fish Oil (Fish Oil) 1,000 mg DAILY PO Last administered on 07/31/17at 09:36; Start 07/31/17 at 09:00; Stop 08/01/17 at 09:51; Status DC Selenium Sulfide (Selsun) 1 carlee TWICEWEEKLY TP ; Start 07/31/17 at 07:30; Stop 07/31/17 at 14:29; Status DC Divalproex Sodium (Depakote Er) 1,000 mg QHS PO Last administered on 07/31/17at 20:26; Start 07/31/17 at 21:00; Stop 08/01/17 at 18:29; Status DC Atorvastatin Calcium (Lipitor) 10 mg QHS PO Last administered on 08/18/17at 19: 34; Start 07/31/17 at 21:00 Divalproex Sodium (Depakote Er) 500 mg DAILY PO Last administered on 08/01/17at 09:10; Start 07/31/17 at 09:00; Stop 08/01/17 at 09:51; Status DC Olanzapine (ZyPREXA) 10 mg DAILY PO Last administered on 08/01/17at 09:30; Start 07/31/17 at 09:00; Stop 08/01/17 at 09:51; Status DC Olanzapine (ZyPREXA) 5 mg DAILY@1400 PO Last administered on 07/31/17at 15:07; Start 07/31/17 at 14:00; Stop 08/01/17 at 09:51; Status DC Selenium Sulfide (Selsun) 1 carlee TWICEWEEKLY TP ; Start 07/31/17 at 14:29 Divalproex Sodium (Depakote Er) 750 mg DAILY PO ; Start 08/02/17 at 09:00; Stop 08/02/17 at 09:00; Status DC Divalproex Sodium (Depakote Sprinkles) 750 mg BID PO Last administered on at 09:21; Start 08/01/17 at 21:00; Stop 08/04/17 at 14:28; Status DC Al Hydroxide/Mg Hydroxide (Mylanta Plus Xs) 30 ml PRN AFTMEAL PRN PO DYSPEPSIA Last administered on 08/18/17at 13:02; Start 08/03/17 at 12:00 Magnesium Hydroxide (Milk Of Magnesia) 2,400 mg PRN DAILY PRN PO CONSTIPATION Last administered on 08/14/17at 20:28; Start 08/03/17 at 17:00 Divalproex Sodium (Depakote Sprinkles) 1,000 mg BID PO Last administered on at 07:51; Start 08/04/17 at 21:00; Stop 08/07/17 at 18:35; Status DC Polyethylene Glycol (miraLAX) 17 gm DAILY PO Last administered on 08/18/17at 08: 16; Start 08/05/17 at 09:00 Trazodone HCl (Desyrel) 100 mg QHS PO Last administered on 08/18/17at 19:34; Start 08/06/17 at 21:00 Trazodone HCl (Desyrel) 100 mg PRN QHS PRN PO INSOMNIA Last administered on at 23:20; Start 08/06/17 at 19:00 Divalproex Sodium (Depakote Sprinkles) 1,250 mg BID PO Last administered on at 20:51; Start 08/07/17 at 21:00; Stop 08/09/17 at 18:31; Status DC Quetiapine Fumarate (SEROquel) 50 mg BID PO Last administered on 08/18/17at 19: 35; Start 08/09/17 at 21:00 Divalproex Sodium (Depakote Sprinkles) 1,500 mg BID PO Last administered on at 08:25; Start 08/09/17 at 21:00; Stop 08/12/17 at 10:53; Status DC Trazodone HCl (Desyrel) 25 mg TID@0900,1300,1700 PO Last administered on at 17:10; Start 08/12/17 at 09:00; Stop 08/13/17 at 18:00; Status DC Divalproex Sodium (Depakote Sprinkles) 1,750 mg BID PO Last administered on at 09:32; Start 08/12/17 at 21:00; Stop 08/16/17 at 18:48; Status DC Trazodone HCl (Desyrel) 25 mg BID@1300,1700 PO Last administered on 08/18/17at 17:27; Start 08/14/17 at 13:00 Trazodone HCl (Desyrel) 50 mg DAILY PO Last administered on 08/18/17at 08:17; Start 08/14/17 at 09:00 Trazodone HCl (Desyrel) 50 mg 1X ONCE PO Last administered on 08/13/17at 18:29 ; Start 08/13/17 at 18:30; Stop 08/13/17 at 18:31; Status DC Sertraline HCl (Zoloft) 25 mg DAILY PO Last administered on 08/17/17at 07:47; Start 08/15/17 at 09:00; Stop 08/17/17 at 11:00; Status DC Sertraline HCl (Zoloft) 50 mg DAILY PO Last administered on 08/18/17at 08:18; Start 08/18/17 at 09:00 Divalproex Sodium (Depakote Sprinkles) 2,000 mg BID PO Last administered on at 19:28; Start 08/16/17 at 21:00 Buspirone HCl (Buspar) 5 mg TID@0900,1300,1700 PO Last administered on at 17:27; Start 08/17/17 at 09:00 Active Scripts Active Reported Ibuprofen 400 Mg Tablet 400 Mg PO PRN Q4HRS PRN MDD 1200mg/24hrs Lorazepam 2 Mg/1 Ml Vial 1 Mg IM BID PRN Abilify Maintena (Aripiprazole) 400 Mg Suser.vial 400 Mg IM Q4WK Next dose due 08/26/17 Paroxetine Hcl 20 Mg Tablet 10 Mg PO DAILY Abilify (Aripiprazole) 5 Mg Tablet 5 Mg PO DAILY Fenofibrate 160 Mg Tablet 160 Mg PO QHS Olanzapine 5 Mg Tablet 5 Mg PO DAILY@1400 5mg PO daily at 14:00 Methylphenidate Hcl 10 Mg Tablet 10 Mg PO BID@0900,1300 Seroquel (Quetiapine Fumarate) 100 Mg Tablet 100 Mg PO BID Prevident 5000 (Sodium Fluoride) 100 Ml Gel..ml. 1 Carlee DT BID Selenium Sulfide 180 Ml Shampoo 1 Carlee TP TWICE WEEKLY Lorazepam 1 Mg Tablet 1 Mg PO PRN BID PRN Acetaminophen 500 Mg Tablet 500 Mg PO PRN Q4HRS PRN Risperdal Consta (Risperidone Microspheres) 25 Mg/2 Ml Disp.syrin 25 Mg IM Q2WKS Phenytoin 125 Mg/5 Ml Oral.susp 300 Mg PO QHS Zyprexa (Olanzapine) 20 Mg Tablet 20 Mg PO QHS Atorvastatin Calcium 10 Mg Tablet 10 Mg PO QHS Zyprexa (Olanzapine) 5 Mg Tablet 5 Mg PO DAILY@1400 Clozapine 200 Mg Tablet 500 Mg PO QHS Clozapine 200 Mg Tablet 200 Mg PO DAILY Detrol La (Tolterodine Tartrate) 2 Mg Cap.er.24h 2 Mg PO BID Depakote Er (Divalproex Sodium) 500 Mg Tab.er.24h 500 Mg PO DAILY Depakote Er (Divalproex Sodium) 500 Mg Tab.er.24h 1,000 Mg PO QHS Gleason 3 1,000 Mg Softgel (Gleason-3 Fatty Acids/Fish Oil) 1 Each Capsule 1,000 Mg PO DAILY Thera-M Tablet (Multivits,Ca,Minerals/Iron/Fa) 1 Each Tablet 1 Tab PO DAILY Vitamin D3 (Cholecalciferol (Vitamin D3)) 1,000 Unit Tablet 2,000 Unit PO DAILY Olanzapine 10 Mg Tablet 10 Mg PO DAILY Miralax (Polyethylene Glycol 3350) 119 Gm Powder 17 Gm PO DAILY Levothyroxine Sodium 200 Mcg Tablet 200 Mcg PO DAILY06 Pantoprazole Sodium 40 Mg Tablet. 40 Mg PO DAILY I have reviewed the current psychotropics carefully including drug interactions. Risk benefit ratio favors no change other than as noted in my dictated progress note. Diagnosis: Problems: (1) Dementia in Alzheimer's disease with delusions (2) Impulse control disorder (3) Schizoaffective disorder, chronic condition with acute exacerbation (4) Borderline intellectual disability STEVEN AYALA MD Aug 18, 2017 20:56
[2017-08-18] MEDS: traZODone 100 MG TABLET. PO PRN (21:05)
[2017-08-19] MEDS: LORazepam 1 MG TABLET PO PRN (00:51)
[2017-08-19 05:39] VITALS: BP 126/61
[2017-08-19] MEDS: LEVOTHYROXINE 100 MCG TABLET PO SCH (06:17)
[2017-08-19 08:02] LABS: BASO # 0.1 x10^3/uL (0.0-0.2); BASO % 1 % (0-3); EOS # 0.2 x10^3/uL (0.0-0.7); EOS % 3 % (0-3); HEMOGLOBIN 12.8 g/dL (13.0-17.5); LYMPH # 2.1 x10^3/uL (1.0-4.8); LYMPH % 40 % (24-48); MEAN CORPUSCULAR HEMOGLOBIN 31 pg (25-35); MEAN CORPUSCULAR HGB CONC 34 g/dL (31-37); MEAN CORPUSCULAR VOLUME 93 fL (79-100); MONO # 0.4 x10^3/uL (0.0-1.1); MONO % 8 % (0-9); NEUT # 2.5 x10^3uL (1.8-7.7); NEUT % 47 % (31-73); PLATELET COUNT 192 x10^3/uL (140-400); RED CELL DISTRIBUTION WIDTH 13.2 % (11.5-14.5); WHITE BLOOD COUNT 5.3 x10^3/uL (4.0-11.0)
[2017-08-19 08:25] LABS: ALBUMIN 3.2 g/dL (3.4-5.0); ALBUMIN/GLOBULIN RATIO 0.8 (1.0-1.7); ALK PHOS 77 U/L (46-116); ALT (SGPT) 28 U/L (16-63); ANION GAP 8 (6-14); AST (SGOT) 24 U/L (15-37); BLOOD UREA NITROGEN 12 mg/dL (8-26); BUN/CREATININE RATIO 15 (6-20); CALCIUM 9.4 mg/dL (8.5-10.1); CARBON DIOXIDE 27 mmol/L (21-32); CHLORIDE 103 mmol/L (98-107); CREATININE 0.8 mg/dL (0.7-1.3); GFR 100.7; GLUCOSE 113 mg/dL (70-99); MAGNESIUM 2.7 mg/dL (1.8-2.4); POTASSIUM 3.9 mmol/L (3.5-5.1); SODIUM 138 mmol/L (136-145); TOTAL BILIRUBIN 0.2 mg/dL (0.2-1.0); TOTAL PROTEIN 7.3 g/dL (6.4-8.2)
[2017-08-19 08:26] LABS: VAL ACID 44 mcg/mL (50-100)
[2017-08-19] MEDS: QUEtiapine 50 MG TABLET. PO SCH ×3 (09:19→17:39)
[2017-08-19] MEDS: OXYBUTYNIN CHLORIDE 5 MG TABLET PO SCH ×3 (09:19→19:16)
[2017-08-19] MEDS: SERTRALINE 25 MG TABLET. PO SCH (09:19)
[2017-08-19] MEDS: POLYETHYLENE GLYCOL 3350 17 GM PACKET. PO SCH (09:19)
[2017-08-19] MEDS: traZODone 50 MG TABLET. PO SCH ×3 (09:19→17:38)
[2017-08-19] MEDS: cloZAPine 100 MG TABLET PO SCH ×2 (09:19→19:16)
[2017-08-19] MEDS: busPIRone 5 MG TABLET. PO SCH ×3 (09:19→17:38)
[2017-08-19] MEDS: DIVALPROEX 125 MG CAP.SPRINK PO SCH ×2 (09:20→19:16)
[2017-08-19 16:00] VITALS: BP 116/78
[2017-08-19] MEDS: ATORVASTATIN CALCIUM 10 MG TABLET. PO SCH (19:17)
[2017-08-19] MEDS: PHENYTOIN SODIUM EXTENDED 100 MG CAPSULE PO SCH (19:17)
[2017-08-19] MEDS: MIRTAZAPINE 7.5 MG TABLET. PO SCH (19:30)
--- NOTE | 2017-08-19 20:48 | PDOC ---
Exam Note: Chad Note: Please also refer to the separate dictated note~for this date of service dictated separately.~Patient seen individually. Discussed the patient with Nursing staff reviewed the chart.~Reviewed interim history and current functioning. Reviewed vital signs,~Labs/ Radiology~and current medications noted below. Continue current treatment with the changes noted in the dictated addendum note Assessment: Vital Signs: Vital Signs Date Time Temp Pulse Resp B/P (MAP) Pulse Ox O2 Delivery O2 Flow Rate FiO2 08/19/17 16:00 97.0 72 18 116/78 (91) 100 I&O Intake and Output 08/19/17 07:00 Intake Total 1080 ml Balance 1080 ml Intake Oral 1080 ml Labs: Laboratory Tests Test 08/19/17 07:33 White Blood Count 5.3 x10^3/uL (4.0-11.0) Red Blood Count 4.10 x10^6/uL (4.30-5.70) L Hemoglobin 12.8 g/dL (13.0-17.5) L Hematocrit 38.0 % (39.0-53.0) L Mean Corpuscular Volume 93 fL (79-100) Mean Corpuscular Hemoglobin 31 pg (25-35) Mean Corpuscular Hemoglobin Concent 34 g/dL (31-37) Red Cell Distribution Width 13.2 % (11.5-14.5) Platelet Count 192 x10^3/uL (140-400) Neutrophils (%) (Auto) 47 % (31-73) Lymphocytes (%) (Auto) 40 % (24-48) Monocytes (%) (Auto) 8 % (0-9) Eosinophils (%) (Auto) 3 % (0-3) Basophils (%) (Auto) 1 % (0-3) Neutrophils # (Auto) 2.5 x10^3uL (1.8-7.7) Lymphocytes # (Auto) 2.1 x10^3/uL (1.0-4.8) Monocytes # (Auto) 0.4 x10^3/uL (0.0-1.1) Eosinophils # (Auto) 0.2 x10^3/uL (0.0-0.7) Basophils # (Auto) 0.1 x10^3/uL (0.0-0.2) Sodium Level 138 mmol/L (136-145) Potassium Level 3.9 mmol/L (3.5-5.1) Chloride Level 103 mmol/L (98-107) Carbon Dioxide Level 27 mmol/L (21-32) Anion Gap 8 (6-14) Blood Urea Nitrogen 12 mg/dL (8-26) Creatinine 0.8 mg/dL (0.7-1.3) Estimated GFR (Cockcroft-Gault) 100.7 BUN/Creatinine Ratio 15 (6-20) Glucose Level 113 mg/dL (70-99) H Calcium Level 9.4 mg/dL (8.5-10.1) Magnesium Level 2.7 mg/dL (1.8-2.4) H Total Bilirubin 0.2 mg/dL (0.2-1.0) Aspartate Amino Transferase (AST) 24 U/L (15-37) Alanine Aminotransferase (ALT) 28 U/L (16-63) Alkaline Phosphatase 77 U/L (46-116) Total Protein 7.3 g/dL (6.4-8.2) Albumin 3.2 g/dL (3.4-5.0) L Albumin/Globulin Ratio 0.8 (1.0-1.7) L Phenytoin (Dilantin) Level 13.0 mcg/mL (10.0-20.0) Phenytoin Last Dose Date 08/18/17 Phenytoin Last Dose Time 2100 Valproic Acid Level 44 mcg/mL (50-100) L Valproic Acid Last Dose Date 08/18/17 Valproic Acid Last Dose Time 2100 Current Medications: Meds: Current Medications Valproic Acid (Depakene) 500 mg STAT PO Last administered on 07/30/17at 21:21; Start 07/30/17 at 20:49; Stop 08/01/17 at 15:23; Status DC Divalproex Sodium (Depakote Er) 1,000 mg QHS PO ; Start 07/31/17 at 21:00; Stop 07/31/17 at 21:00; Status DC Divalproex Sodium (Depakote Er) 500 mg DAILY PO ; Start 07/31/17 at 09:00; Stop 07/31/17 at 09:00; Status DC Lorazepam (Ativan) 1 mg PRN BID PRN PO ANXIETY / AGITATION Last administered on 08/19/17at 00:51; Start 07/30/17 at 23:00 Olanzapine (ZyPREXA) 10 mg DAILY PO ; Start 07/31/17 at 09:00; Stop 07/31/17 at 09:00; Status DC Olanzapine (ZyPREXA) 5 mg DAILY@1400 PO ; Start 07/31/17 at 14:00; Stop at 14:00; Status DC Risperidone (RisperDAL CONSTA) 25 mg Q2WKS IM ; Start 08/13/17 at 09:00; Status UNV Clozapine (Clozaril) 200 mg DAILY PO Last administered on 08/19/17 09:19; Start 07/31/17 at 09:00 Clozapine (Clozaril) 500 mg QHS PO Last administered on 08/19/17 19:16; Start 07/31/17 at 21:00 Olanzapine (ZyPREXA) 20 mg QHS PO Last administered on 07/31/17at 20:28; Start 07/31/17 at 21:00; Stop 08/01/17 at 09:51; Status DC Atorvastatin Calcium (Lipitor) 10 mg QHS PO ; Start 07/31/17 at 21:00; Stop 03/10 at 21:00; Status DC Phenytoin Sodium (Dilantin) 300 mg QHS PO Last administered on 08/19/17 19:17 ; Start 07/31/17 at 21:00 Non-Formulary Medication (Sodium Fluoride (Prevident 5000)) 1 carlee BID DT ; Start 07/31/17 at 09:00; Stop 07/31/17 at 09:00; Status DC Oxybutynin Chloride (Ditropan) 5 mg [id number] PO Last administered on 08/19/17 19 :16; Start 07/31/17 at 09:00 Quetiapine Fumarate (SEROquel) 100 mg BID PO Last administered on 08/08/17at 20: 51; Start 07/31/17 at 09:00; Stop 08/09/17 at 18:03; Status DC Acetaminophen (Tylenol) 500 mg PRN Q4HRS PRN PO PAIN Last administered on at 18:50; Start 07/31/17 at 07:15 Levothyroxine Sodium (Synthroid) 200 mcg DAILY06 PO Last administered on 3/29/ 18at 06:17; Start 07/31/17 at 07:15 Fish Oil (Fish Oil) 1,000 mg DAILY PO Last administered on 07/31/17at 09:36; Start 07/31/17 at 09:00; Stop 08/01/17 at 09:51; Status DC Selenium Sulfide (Selsun) 1 carlee TWICEWEEKLY TP ; Start 07/31/17 at 07:30; Stop 07/31/17 at 14:29; Status DC Divalproex Sodium (Depakote Er) 1,000 mg QHS PO Last administered on 07/31/17at 20:26; Start 07/31/17 at 21:00; Stop 08/01/17 at 18:29; Status DC Atorvastatin Calcium (Lipitor) 10 mg QHS PO Last administered on 08/19/17at 19: 17; Start 07/31/17 at 21:00 Divalproex Sodium (Depakote Er) 500 mg DAILY PO Last administered on 08/01/17at 09:10; Start 07/31/17 at 09:00; Stop 08/01/17 at 09:51; Status DC Olanzapine (ZyPREXA) 10 mg DAILY PO Last administered on 08/01/17at 09:30; Start 07/31/17 at 09:00; Stop 08/01/17 at 09:51; Status DC Olanzapine (ZyPREXA) 5 mg DAILY@1400 PO Last administered on 07/31/17at 15:07; Start 07/31/17 at 14:00; Stop 08/01/17 at 09:51; Status DC Selenium Sulfide (Selsun) 1 carlee TWICEWEEKLY TP ; Start 07/31/17 at 14:29 Divalproex Sodium (Depakote Er) 750 mg DAILY PO ; Start 08/02/17 at 09:00; Stop 08/02/17 at 09:00; Status DC Divalproex Sodium (Depakote Sprinkles) 750 mg BID PO Last administered on at 09:21; Start 08/01/17 at 21:00; Stop 08/04/17 at 14:28; Status DC Al Hydroxide/Mg Hydroxide (Mylanta Plus Xs) 30 ml PRN AFTMEAL PRN PO DYSPEPSIA Last administered on 08/18/17at 13:02; Start 08/03/17 at 12:00 Magnesium Hydroxide (Milk Of Magnesia) 2,400 mg PRN DAILY PRN PO CONSTIPATION Last administered on 08/14/17at 20:28; Start 08/03/17 at 17:00 Divalproex Sodium (Depakote Sprinkles) 1,000 mg BID PO Last administered on 07:51; Start 08/04/17 at 21:00; Stop 08/07/17 at 18:35; Status DC Polyethylene Glycol (miraLAX) 17 gm DAILY PO Last administered on 08/19/17 09: 19; Start 08/05/17 at 09:00 Trazodone HCl (Desyrel) 100 mg QHS PO Last administered on 08/18/17 19:34; Start 08/06/17 at 21:00; Stop 08/19/17 at 18:44; Status DC Trazodone HCl (Desyrel) 100 mg PRN QHS PRN PO INSOMNIA Last administered on 21:05; Start 08/06/17 at 19:00; Stop 08/19/17 at 18:44; Status DC Divalproex Sodium (Depakote Sprinkles) 1,250 mg BID PO Last administered on 20:51; Start 08/07/17 at 21:00; Stop 08/09/17 at 18:31; Status DC Quetiapine Fumarate (SEROquel) 50 mg BID PO Last administered on 08/19/17 09: 19; Start 08/09/17 at 21:00; Stop 08/19/17 at 10:47; Status DC Divalproex Sodium (Depakote Sprinkles) 1,500 mg BID PO Last administered on at 08:25; Start 08/09/17 at 21:00; Stop 08/12/17 at 10:53; Status DC Trazodone HCl (Desyrel) 25 mg TID@0900,1300,1700 PO Last administered on at 17:10; Start 08/12/17 at 09:00; Stop 08/13/17 at 18:00; Status DC Divalproex Sodium (Depakote Sprinkles) 1,750 mg BID PO Last administered on at 09:32; Start 08/12/17 at 21:00; Stop 08/16/17 at 18:48; Status DC Trazodone HCl (Desyrel) 25 mg BID@1300,1700 PO Last administered on 08/19/17at 17:38; Start 08/14/17 at 13:00 Trazodone HCl (Desyrel) 50 mg DAILY PO Last administered on 08/19/17 09:19; Start 08/14/17 at 09:00 Trazodone HCl (Desyrel) 50 mg 1X ONCE PO Last administered on 08/13/17at 18:29 ; Start 08/13/17 at 18:30; Stop 08/13/17 at 18:31; Status DC Sertraline HCl (Zoloft) 25 mg DAILY PO Last administered on 08/17/17at 07:47; Start 08/15/17 at 09:00; Stop 08/17/17 at 11:00; Status DC Sertraline HCl (Zoloft) 50 mg DAILY PO Last administered on 08/19/17at 09:19; Start 08/18/17 at 09:00 Divalproex Sodium (Depakote Sprinkles) 2,000 mg BID PO Last administered on at 19:16; Start 08/16/17 at 21:00 Buspirone HCl (Buspar) 5 mg TID@0900,1300,1700 PO Last administered on at 17:38; Start 08/17/17 at 09:00 Quetiapine Fumarate (SEROquel) 50 mg TID@0900,1300,1700 PO Last administered on 08/19/17at 17:39; Start 08/19/17 at 13:00 Mirtazapine (Remeron) 7.5 mg QHS PO Last administered on 08/19/17 19:30; Start 08/19/17 at 21:00 Active Scripts Active Reported Ibuprofen 400 Mg Tablet 400 Mg PO PRN Q4HRS PRN MDD 1200mg/24hrs Lorazepam 2 Mg/1 Ml Vial 1 Mg IM BID PRN Abilify Maintena (Aripiprazole) 400 Mg Suser.vial 400 Mg IM Q4WK Next dose due 08/26/17 Paroxetine Hcl 20 Mg Tablet 10 Mg PO DAILY Abilify (Aripiprazole) 5 Mg Tablet 5 Mg PO DAILY Fenofibrate 160 Mg Tablet 160 Mg PO QHS Olanzapine 5 Mg Tablet 5 Mg PO DAILY@1400 5mg PO daily at 14:00 Methylphenidate Hcl 10 Mg Tablet 10 Mg PO BID@0900,1300 Seroquel (Quetiapine Fumarate) 100 Mg Tablet 100 Mg PO BID Prevident 5000 (Sodium Fluoride) 100 Ml Gel..ml. 1 Carlee DT BID Selenium Sulfide 180 Ml Shampoo 1 Carlee TP TWICE WEEKLY Lorazepam 1 Mg Tablet 1 Mg PO PRN BID PRN Acetaminophen 500 Mg Tablet 500 Mg PO PRN Q4HRS PRN Risperdal Consta (Risperidone Microspheres) 25 Mg/2 Ml Disp.syrin 25 Mg IM Q2WKS Phenytoin 125 Mg/5 Ml Oral.susp 300 Mg PO QHS Zyprexa (Olanzapine) 20 Mg Tablet 20 Mg PO QHS Atorvastatin Calcium 10 Mg Tablet 10 Mg PO QHS Zyprexa (Olanzapine) 5 Mg Tablet 5 Mg PO DAILY@1400 Clozapine 200 Mg Tablet 500 Mg PO QHS Clozapine 200 Mg Tablet 200 Mg PO DAILY Detrol La (Tolterodine Tartrate) 2 Mg Cap.er.24h 2 Mg PO BID Depakote Er (Divalproex Sodium) 500 Mg Tab.er.24h 500 Mg PO DAILY Depakote Er (Divalproex Sodium) 500 Mg Tab.er.24h 1,000 Mg PO QHS Kyle 3 1,000 Mg Softgel (Kyle-3 Fatty Acids/Fish Oil) 1 Each Capsule 1,000 Mg PO DAILY Thera-M Tablet (Multivits,Ca,Minerals/Iron/Fa) 1 Each Tablet 1 Tab PO DAILY Vitamin D3 (Cholecalciferol (Vitamin D3)) 1,000 Unit Tablet 2,000 Unit PO DAILY Olanzapine 10 Mg Tablet 10 Mg PO DAILY Miralax (Polyethylene Glycol 3350) 119 Gm Powder 17 Gm PO DAILY Levothyroxine Sodium 200 Mcg Tablet 200 Mcg PO DAILY06 Pantoprazole Sodium 40 Mg Tablet.dr 40 Mg PO DAILY I have reviewed the current psychotropics carefully including drug interactions. Risk benefit ratio favors no change other than as noted in my dictated progress note. Diagnosis: Problems: (1) Dementia in Alzheimer's disease with delusions (2) Impulse control disorder (3) Schizoaffective disorder, chronic condition with acute exacerbation (4) Borderline intellectual disability STEVEN AYALA MD Aug 19, 2017 20:48
[2017-08-19] MEDS: ACETAMINOPHEN 500 MG TABLET PO PRN (21:11)
[2017-08-20] MEDS: LEVOTHYROXINE 100 MCG TABLET PO SCH (05:53)
[2017-08-20 06:02] VITALS: BP 121/74
[2017-08-20] MEDS: POLYETHYLENE GLYCOL 3350 17 GM PACKET. PO SCH (08:32)
[2017-08-20] MEDS: SERTRALINE 25 MG TABLET. PO SCH (08:33)
[2017-08-20] MEDS: QUEtiapine 50 MG TABLET. PO SCH ×3 (08:33→17:03)
[2017-08-20] MEDS: traZODone 50 MG TABLET. PO SCH ×3 (08:33→17:05)
[2017-08-20] MEDS: DIVALPROEX 125 MG CAP.SPRINK PO SCH ×2 (08:33→19:51)
[2017-08-20] MEDS: busPIRone 5 MG TABLET. PO SCH ×3 (08:33→17:03)
[2017-08-20] MEDS: OXYBUTYNIN CHLORIDE 5 MG TABLET PO SCH ×3 (08:33→19:52)
[2017-08-20] MEDS: cloZAPine 100 MG TABLET PO SCH ×2 (08:33→19:51)
[2017-08-20 16:13] VITALS: BP 116/66
[2017-08-20] MEDS: PHENYTOIN SODIUM EXTENDED 100 MG CAPSULE PO SCH (19:52)
[2017-08-20] MEDS: MIRTAZAPINE 7.5 MG TABLET. PO SCH (19:52)
[2017-08-20] MEDS: ATORVASTATIN CALCIUM 10 MG TABLET. PO SCH (19:52)
--- NOTE | 2017-08-20 20:53 | PDOC ---
Exam Note: Chad Note: Please also refer to the separate dictated note~for this date of service dictated separately.~Patient seen individually. Discussed the patient with Nursing staff reviewed the chart.~Reviewed interim history and current functioning. Reviewed vital signs,~Labs/ Radiology~and current medications noted below. Continue current treatment with the changes noted in the dictated addendum note Assessment: Vital Signs: Vital Signs Date Time Temp Pulse Resp B/P (MAP) Pulse Ox O2 Delivery O2 Flow Rate FiO2 08/20/17 16:13 97.7 102 17 116/66 (83) 99 I&O Intake and Output 08/20/17 07:00 Intake Total 1620 ml Balance 1620 ml Intake Oral 1620 ml # Voids 2 # Bowel Movements 1 Current Medications: Meds: Current Medications Valproic Acid (Depakene) 500 mg STAT PO Last administered on 07/30/17at 21:21; Start 07/30/17 at 20:49; Stop 08/01/17 at 15:23; Status DC Divalproex Sodium (Depakote Er) 1,000 mg QHS PO ; Start 07/31/17 at 21:00; Stop 07/31/17 at 21:00; Status DC Divalproex Sodium (Depakote Er) 500 mg DAILY PO ; Start 07/31/17 at 09:00; Stop 07/31/17 at 09:00; Status DC Lorazepam (Ativan) 1 mg PRN BID PRN PO ANXIETY / AGITATION Last administered on 08/19/17at 00:51; Start 07/30/17 at 23:00 Olanzapine (ZyPREXA) 10 mg DAILY PO ; Start 07/31/17 at 09:00; Stop 07/31/17 at 09:00; Status DC Olanzapine (ZyPREXA) 5 mg DAILY@1400 PO ; Start 07/31/17 at 14:00; Stop at 14:00; Status DC Risperidone (RisperDAL CONSTA) 25 mg Q2WKS IM ; Start 08/13/17 at 09:00; Status UNV Clozapine (Clozaril) 200 mg DAILY PO Last administered on 08/20/17at 08:33; Start 07/31/17 at 09:00 Clozapine (Clozaril) 500 mg QHS PO Last administered on 08/20/17at 19:51; Start 07/31/17 at 21:00 Olanzapine (ZyPREXA) 20 mg QHS PO Last administered on 07/31/17 20:28; Start 07/31/17 at 21:00; Stop 08/01/17 at 09:51; Status DC Atorvastatin Calcium (Lipitor) 10 mg QHS PO ; Start 07/31/17 at 21:00; Stop 03/10 at 21:00; Status DC Phenytoin Sodium (Dilantin) 300 mg QHS PO Last administered on 08/20/17 19:52 ; Start 07/31/17 at 21:00 Non-Formulary Medication (Sodium Fluoride (Prevident 5000)) 1 carlee BID DT ; Start 07/31/17 at 09:00; Stop 07/31/17 at 09:00; Status DC Oxybutynin Chloride (Ditropan) 5 mg [id number] PO Last administered on 08/20/17 19 :52; Start 07/31/17 at 09:00 Quetiapine Fumarate (SEROquel) 100 mg BID PO Last administered on 08/08/17at 20: 51; Start 07/31/17 at 09:00; Stop 08/09/17 at 18:03; Status DC Acetaminophen (Tylenol) 500 mg PRN Q4HRS PRN PO PAIN Last administered on 21:11; Start 07/31/17 at 07:15 Levothyroxine Sodium (Synthroid) 200 mcg DAILY06 PO Last administered on 05:53; Start 07/31/17 at 07:15 Fish Oil (Fish Oil) 1,000 mg DAILY PO Last administered on 07/31/17at 09:36; Start 07/31/17 at 09:00; Stop 08/01/17 at 09:51; Status DC Selenium Sulfide (Selsun) 1 carlee TWICEWEEKLY TP ; Start 07/31/17 at 07:30; Stop 07/31/17 at 14:29; Status DC Divalproex Sodium (Depakote Er) 1,000 mg QHS PO Last administered on 07/31/17at 20:26; Start 07/31/17 at 21:00; Stop 08/01/17 at 18:29; Status DC Atorvastatin Calcium (Lipitor) 10 mg QHS PO Last administered on 3/30/18at 19: 52; Start 07/31/17 at 21:00 Divalproex Sodium (Depakote Er) 500 mg DAILY PO Last administered on 08/01/17at 09:10; Start 07/31/17 at 09:00; Stop 08/01/17 at 09:51; Status DC Olanzapine (ZyPREXA) 10 mg DAILY PO Last administered on 08/01/17at 09:30; Start 07/31/17 at 09:00; Stop 08/01/17 at 09:51; Status DC Olanzapine (ZyPREXA) 5 mg DAILY@1400 PO Last administered on 07/31/17at 15:07; Start 07/31/17 at 14:00; Stop 08/01/17 at 09:51; Status DC Selenium Sulfide (Selsun) 1 carlee TWICEWEEKLY TP ; Start 07/31/17 at 14:29 Divalproex Sodium (Depakote Er) 750 mg DAILY PO ; Start 08/02/17 at 09:00; Stop 08/02/17 at 09:00; Status DC Divalproex Sodium (Depakote Sprinkles) 750 mg BID PO Last administered on at 09:21; Start 08/01/17 at 21:00; Stop 08/04/17 at 14:28; Status DC Al Hydroxide/Mg Hydroxide (Mylanta Plus Xs) 30 ml PRN AFTMEAL PRN PO DYSPEPSIA Last administered on 08/18/17 13:02; Start 08/03/17 at 12:00 Magnesium Hydroxide (Milk Of Magnesia) 2,400 mg PRN DAILY PRN PO CONSTIPATION Last administered on 08/14/17at 20:28; Start 08/03/17 at 17:00 Divalproex Sodium (Depakote Sprinkles) 1,000 mg BID PO Last administered on at 07:51; Start 08/04/17 at 21:00; Stop 08/07/17 at 18:35; Status DC Polyethylene Glycol (miraLAX) 17 gm DAILY PO Last administered on 08/20/17at 08: 32; Start 08/05/17 at 09:00 Trazodone HCl (Desyrel) 100 mg QHS PO Last administered on 08/18/17at 19:34; Start 08/06/17 at 21:00; Stop 08/19/17 at 18:44; Status DC Trazodone HCl (Desyrel) 100 mg PRN QHS PRN PO INSOMNIA Last administered on at 21:05; Start 08/06/17 at 19:00; Stop 08/19/17 at 18:44; Status DC Divalproex Sodium (Depakote Sprinkles) 1,250 mg BID PO Last administered on at 20:51; Start 08/07/17 at 21:00; Stop 08/09/17 at 18:31; Status DC Quetiapine Fumarate (SEROquel) 50 mg BID PO Last administered on 08/19/17at 09: 19; Start 08/09/17 at 21:00; Stop 08/19/17 at 10:47; Status DC Divalproex Sodium (Depakote Sprinkles) 1,500 mg BID PO Last administered on at 08:25; Start 08/09/17 at 21:00; Stop 08/12/17 at 10:53; Status DC Trazodone HCl (Desyrel) 25 mg TID@0900,1300,1700 PO Last administered on at 17:10; Start 08/12/17 at 09:00; Stop 08/13/17 at 18:00; Status DC Divalproex Sodium (Depakote Sprinkles) 1,750 mg BID PO Last administered on at 09:32; Start 08/12/17 at 21:00; Stop 08/16/17 at 18:48; Status DC Trazodone HCl (Desyrel) 25 mg BID@1300,1700 PO Last administered on 08/20/17at 17:05; Start 08/14/17 at 13:00 Trazodone HCl (Desyrel) 50 mg DAILY PO Last administered on 08/20/17at 08:33; Start 08/14/17 at 09:00 Trazodone HCl (Desyrel) 50 mg 1X ONCE PO Last administered on 08/13/17at 18:29 ; Start 08/13/17 at 18:30; Stop 08/13/17 at 18:31; Status DC Sertraline HCl (Zoloft) 25 mg DAILY PO Last administered on 08/17/17at 07:47; Start 08/15/17 at 09:00; Stop 08/17/17 at 11:00; Status DC Sertraline HCl (Zoloft) 50 mg DAILY PO Last administered on 08/20/17at 08:33; Start 08/18/17 at 09:00 Divalproex Sodium (Depakote Sprinkles) 2,000 mg BID PO Last administered on at 19:51; Start 08/16/17 at 21:00 Buspirone HCl (Buspar) 5 mg TID@0900,1300,1700 PO Last administered on 17:03; Start 08/17/17 at 09:00 Quetiapine Fumarate (SEROquel) 50 mg TID@0900,1300,1700 PO Last administered on 08/20/17 17:03; Start 08/19/17 at 13:00 Mirtazapine (Remeron) 7.5 mg QHS PO Last administered on 08/20/17 19:52; Start 08/19/17 at 21:00 Active Scripts Active Reported Ibuprofen 400 Mg Tablet 400 Mg PO PRN Q4HRS PRN MDD 1200mg/24hrs Lorazepam 2 Mg/1 Ml Vial 1 Mg IM BID PRN Abilify Maintena (Aripiprazole) 400 Mg Suser.vial 400 Mg IM Q4WK Next dose due 08/26/17 Paroxetine Hcl 20 Mg Tablet 10 Mg PO DAILY Abilify (Aripiprazole) 5 Mg Tablet 5 Mg PO DAILY Fenofibrate 160 Mg Tablet 160 Mg PO QHS Olanzapine 5 Mg Tablet 5 Mg PO DAILY@1400 5mg PO daily at 14:00 Methylphenidate Hcl 10 Mg Tablet 10 Mg PO BID@0900,1300 Seroquel (Quetiapine Fumarate) 100 Mg Tablet 100 Mg PO BID Prevident 5000 (Sodium Fluoride) 100 Ml Gel..ml. 1 Carlee DT BID Selenium Sulfide 180 Ml Shampoo 1 Carlee TP TWICE WEEKLY Lorazepam 1 Mg Tablet 1 Mg PO PRN BID PRN Acetaminophen 500 Mg Tablet 500 Mg PO PRN Q4HRS PRN Risperdal Consta (Risperidone Microspheres) 25 Mg/2 Ml Disp.syrin 25 Mg IM Q2WKS Phenytoin 125 Mg/5 Ml Oral.susp 300 Mg PO QHS Zyprexa (Olanzapine) 20 Mg Tablet 20 Mg PO QHS Atorvastatin Calcium 10 Mg Tablet 10 Mg PO QHS Zyprexa (Olanzapine) 5 Mg Tablet 5 Mg PO DAILY@1400 Clozapine 200 Mg Tablet 500 Mg PO QHS Clozapine 200 Mg Tablet 200 Mg PO DAILY Detrol La (Tolterodine Tartrate) 2 Mg Cap.er.24h 2 Mg PO BID Depakote Er (Divalproex Sodium) 500 Mg Tab.er.24h 500 Mg PO DAILY Depakote Er (Divalproex Sodium) 500 Mg Tab.er.24h 1,000 Mg PO QHS [place] 3 1,000 Mg Softgel ([place]-3 Fatty Acids/Fish Oil) 1 Each Capsule 1,000 Mg PO DAILY Thera-M Tablet (Multivits,Ca,Minerals/Iron/Fa) 1 Each Tablet 1 Tab PO DAILY Vitamin D3 (Cholecalciferol (Vitamin D3)) 1,000 Unit Tablet 2,000 Unit PO DAILY Olanzapine 10 Mg Tablet 10 Mg PO DAILY Miralax (Polyethylene Glycol 3350) 119 Gm Powder 17 Gm PO DAILY Levothyroxine Sodium 200 Mcg Tablet 200 Mcg PO DAILY06 Pantoprazole Sodium 40 Mg Tablet.dr 40 Mg PO DAILY I have reviewed the current psychotropics carefully including drug interactions. Risk benefit ratio favors no change other than as noted in my dictated progress note. Diagnosis: Problems: (1) Dementia in Alzheimer's disease with delusions (2) Impulse control disorder (3) Schizoaffective disorder, chronic condition with acute exacerbation (4) Borderline intellectual disability STEVEN AYALA MD Aug 20, 2017 20:53
[2017-08-20] MEDS: hydrOXYzine HCL 25 MG TABLET PO PRN (22:56)
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
--- NOTE | 2017-08-21 00:57 | PN ---
DATE: 08/19/2017 PSYCHIATRIC PROGRESS NOTE This is a late entry 08/19/2017 covers elements not covered in my initial note 08/19/2017. SUBJECTIVE: I met with the patient in the evening of 08/19/2017, staffed at treatment team meeting with the entire team morning of 08/19/2017. Reviewed the patient's history. Appetite 100%, sleeping average 6-1/4 hours, slept 3-1/4 hours previous evening. He continues to have some GI somatic symptoms, obsessive rumination about this. Social skills are poor, shouts out in groups. REVIEW OF SYSTEMS: No CV, , pulmonary, eye system symptoms on review other than the GI symptoms. Reliability poor. MENTAL STATUS EXAM: Oriented to himself and situation. Speech coherent, rapid, loud at times, less so than before. Abstraction fair, computation impaired, language function intact, attention span short. Mood and affect remain somewhat labile, but showing improvement. LABORATORY DATA: Reviewed. IMPRESSION: Schizoaffective disorder, bipolar type, mixed with psychotic features, intellectual disability. Rest unchanged. PLAN: Increase Seroquel from 50 mg twice a day to 50 mg 3 times a day. Check a Dilantin level. Dilantin is 300 mg at bedtime for his seizure disorder. Valproic acid level low at 44. Depakote has been increased. We will repeat a level. We have had a pharmacy consult to see if there is any medication interaction that could lower his Depakote level since he is on 2 grams Depakote twice a day. Suggestion from the pharmacist seems to be that trazodone could do some of this and we will stop the daytime trazodone, continue with the bedtime for now. Rest unchanged per the initial note. MAN Suleman AYALA MD DR: ADALBERTO/garry JOB#: [id number] / [id number]
[2017-08-21 05:52] VITALS: BP 112/60
--- NOTE | 2017-08-21 08:54 | EKG ---
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
[2017-08-21] MEDS: LEVOTHYROXINE 100 MCG TABLET PO SCH (09:08)
[2017-08-21] MEDS: busPIRone 5 MG TABLET. PO SCH ×3 (09:08→17:31)
[2017-08-21] MEDS: DIVALPROEX 125 MG CAP.SPRINK PO SCH ×2 (09:10→19:54)
[2017-08-21] MEDS: cloZAPine 100 MG TABLET PO SCH ×2 (09:10→19:54)
[2017-08-21] MEDS: OXYBUTYNIN CHLORIDE 5 MG TABLET PO SCH ×3 (09:11→19:53)
[2017-08-21] MEDS: QUEtiapine 50 MG TABLET. PO SCH ×3 (09:11→17:32)
[2017-08-21] MEDS: traZODone 50 MG TABLET. PO SCH ×3 (09:11→17:31)
[2017-08-21] MEDS: POLYETHYLENE GLYCOL 3350 17 GM PACKET. PO SCH (09:11)
[2017-08-21] MEDS: SERTRALINE 25 MG TABLET. PO SCH (09:11)
[2017-08-21 15:45] VITALS: BP 137/54
[2017-08-21] MEDS: ACETAMINOPHEN 500 MG TABLET PO PRN (16:28)
[2017-08-21] MEDS: MIRTAZAPINE 7.5 MG TABLET. PO SCH (19:53)
[2017-08-21] MEDS: ATORVASTATIN CALCIUM 10 MG TABLET. PO SCH (19:54)
[2017-08-21] MEDS: PHENYTOIN SODIUM EXTENDED 100 MG CAPSULE PO SCH (19:55)
[2017-08-21] MEDS: LORazepam 1 MG TABLET PO PRN (20:44)
--- NOTE | 2017-08-21 22:45 | PDOC ---
Exam Note: Chad Note: Please also refer to the separate dictated note~for this date of service dictated separately.~Patient seen individually. Discussed the patient with Nursing staff reviewed the chart.~Reviewed interim history and current functioning. Reviewed vital signs,~Labs/ Radiology~and current medications noted below. Continue current treatment with the changes noted in the dictated addendum note Assessment: Vital Signs: Vital Signs Date Time Temp Pulse Resp B/P (MAP) Pulse Ox O2 Delivery O2 Flow Rate FiO2 08/21/17 15:45 97.5 83 18 137/54 (81) 99 I&O Intake and Output 08/21/17 07:00 Intake Total 1200 ml Balance 1200 ml Intake Oral 1200 ml # Voids 2 Current Medications: Meds: Current Medications Valproic Acid (Depakene) 500 mg STAT PO Last administered on 07/30/17at 21:21; Start 07/30/17 at 20:49; Stop 08/01/17 at 15:23; Status DC Divalproex Sodium (Depakote Er) 1,000 mg QHS PO ; Start 07/31/17 at 21:00; Stop 07/31/17 at 21:00; Status DC Divalproex Sodium (Depakote Er) 500 mg DAILY PO ; Start 07/31/17 at 09:00; Stop 07/31/17 at 09:00; Status DC Lorazepam (Ativan) 1 mg PRN BID PRN PO ANXIETY / AGITATION Last administered on 08/21/17at 20:44; Start 07/30/17 at 23:00 Olanzapine (ZyPREXA) 10 mg DAILY PO ; Start 07/31/17 at 09:00; Stop 07/31/17 at 09:00; Status DC Olanzapine (ZyPREXA) 5 mg DAILY@1400 PO ; Start 07/31/17 at 14:00; Stop at 14:00; Status DC Risperidone (RisperDAL CONSTA) 25 mg Q2WKS IM ; Start 08/13/17 at 09:00; Status UNV Clozapine (Clozaril) 200 mg DAILY PO Last administered on 08/21/17at 09:10; Start 07/31/17 at 09:00 Clozapine (Clozaril) 500 mg QHS PO Last administered on 08/21/17at 19:54; Start 07/31/17 at 21:00 Olanzapine (ZyPREXA) 20 mg QHS PO Last administered on 07/31/17 20:28; Start 07/31/17 at 21:00; Stop 08/01/17 at 09:51; Status DC Atorvastatin Calcium (Lipitor) 10 mg QHS PO ; Start 07/31/17 at 21:00; Stop 03/10 at 21:00; Status DC Phenytoin Sodium (Dilantin) 300 mg QHS PO Last administered on 08/21/17 19:55 ; Start 07/31/17 at 21:00 Non-Formulary Medication (Sodium Fluoride (Prevident 5000)) 1 carlee BID DT ; Start 07/31/17 at 09:00; Stop 07/31/17 at 09:00; Status DC Oxybutynin Chloride (Ditropan) 5 mg DCA089 PO Last administered on 08/21/17 19 :53; Start 07/31/17 at 09:00 Quetiapine Fumarate (SEROquel) 100 mg BID PO Last administered on 08/08/17 20: 51; Start 07/31/17 at 09:00; Stop 08/09/17 at 18:03; Status DC Acetaminophen (Tylenol) 500 mg PRN Q4HRS PRN PO PAIN Last administered on 16:28; Start 07/31/17 at 07:15 Levothyroxine Sodium (Synthroid) 200 mcg DAILY06 PO Last administered on 09:08; Start 07/31/17 at 07:15 Fish Oil (Fish Oil) 1,000 mg DAILY PO Last administered on 07/31/17at 09:36; Start 07/31/17 at 09:00; Stop 08/01/17 at 09:51; Status DC Selenium Sulfide (Selsun) 1 carlee TWICEWEEKLY TP ; Start 07/31/17 at 07:30; Stop 07/31/17 at 14:29; Status DC Divalproex Sodium (Depakote Er) 1,000 mg QHS PO Last administered on 07/31/17at 20:26; Start 07/31/17 at 21:00; Stop 08/01/17 at 18:29; Status DC Atorvastatin Calcium (Lipitor) 10 mg QHS PO Last administered on 08/21/17 19: 54; Start 07/31/17 at 21:00 Divalproex Sodium (Depakote Er) 500 mg DAILY PO Last administered on 08/01/17at 09:10; Start 07/31/17 at 09:00; Stop 08/01/17 at 09:51; Status DC Olanzapine (ZyPREXA) 10 mg DAILY PO Last administered on 08/01/17at 09:30; Start 07/31/17 at 09:00; Stop 08/01/17 at 09:51; Status DC Olanzapine (ZyPREXA) 5 mg DAILY@1400 PO Last administered on 07/31/17at 15:07; Start 07/31/17 at 14:00; Stop 08/01/17 at 09:51; Status DC Selenium Sulfide (Selsun) 1 carlee TWICEWEEKLY TP ; Start 07/31/17 at 14:29 Divalproex Sodium (Depakote Er) 750 mg DAILY PO ; Start 08/02/17 at 09:00; Stop 08/02/17 at 09:00; Status DC Divalproex Sodium (Depakote Sprinkles) 750 mg BID PO Last administered on at 09:21; Start 08/01/17 at 21:00; Stop 08/04/17 at 14:28; Status DC Al Hydroxide/Mg Hydroxide (Mylanta Plus Xs) 30 ml PRN AFTMEAL PRN PO DYSPEPSIA Last administered on 08/18/17at 13:02; Start 08/03/17 at 12:00 Magnesium Hydroxide (Milk Of Magnesia) 2,400 mg PRN DAILY PRN PO CONSTIPATION Last administered on 08/14/17at 20:28; Start 08/03/17 at 17:00 Divalproex Sodium (Depakote Sprinkles) 1,000 mg BID PO Last administered on at 07:51; Start 08/04/17 at 21:00; Stop 08/07/17 at 18:35; Status DC Polyethylene Glycol (miraLAX) 17 gm DAILY PO Last administered on 08/21/17at 09: 11; Start 08/05/17 at 09:00 Trazodone HCl (Desyrel) 100 mg QHS PO Last administered on 08/18/17at 19:34; Start 08/06/17 at 21:00; Stop 08/19/17 at 18:44; Status DC Trazodone HCl (Desyrel) 100 mg PRN QHS PRN PO INSOMNIA Last administered on at 21:05; Start 08/06/17 at 19:00; Stop 08/19/17 at 18:44; Status DC Divalproex Sodium (Depakote Sprinkles) 1,250 mg BID PO Last administered on at 20:51; Start 08/07/17 at 21:00; Stop 08/09/17 at 18:31; Status DC Quetiapine Fumarate (SEROquel) 50 mg BID PO Last administered on 08/19/17at 09: 19; Start 08/09/17 at 21:00; Stop 08/19/17 at 10:47; Status DC Divalproex Sodium (Depakote Sprinkles) 1,500 mg BID PO Last administered on at 08:25; Start 08/09/17 at 21:00; Stop 08/12/17 at 10:53; Status DC Trazodone HCl (Desyrel) 25 mg TID@0900,1300,1700 PO Last administered on at 17:10; Start 08/12/17 at 09:00; Stop 08/13/17 at 18:00; Status DC Divalproex Sodium (Depakote Sprinkles) 1,750 mg BID PO Last administered on at 09:32; Start 08/12/17 at 21:00; Stop 08/16/17 at 18:48; Status DC Trazodone HCl (Desyrel) 25 mg BID@1300,1700 PO Last administered on 08/21/17at 17:31; Start 08/14/17 at 13:00 Trazodone HCl (Desyrel) 50 mg DAILY PO Last administered on 08/21/17at 09:11; Start 08/14/17 at 09:00 Trazodone HCl (Desyrel) 50 mg 1X ONCE PO Last administered on 08/13/17at 18:29 ; Start 08/13/17 at 18:30; Stop 08/13/17 at 18:31; Status DC Sertraline HCl (Zoloft) 25 mg DAILY PO Last administered on 08/17/17at 07:47; Start 08/15/17 at 09:00; Stop 08/17/17 at 11:00; Status DC Sertraline HCl (Zoloft) 50 mg DAILY PO Last administered on 08/21/17at 09:11; Start 08/18/17 at 09:00 Divalproex Sodium (Depakote Sprinkles) 2,000 mg BID PO Last administered on at 19:54; Start 08/16/17 at 21:00 Buspirone HCl (Buspar) 5 mg TID@0900,1300,1700 PO Last administered on 17:31; Start 08/17/17 at 09:00 Quetiapine Fumarate (SEROquel) 50 mg TID@0900,1300,1700 PO Last administered on 08/21/17at 17:32; Start 08/19/17 at 13:00 Mirtazapine (Remeron) 7.5 mg QHS PO Last administered on 08/21/17at 19:53; Start 08/19/17 at 21:00 Hydroxyzine HCl (Atarax) 50 mg PRN QHS PRN PO INSOMNIA, MAY REPEAT X1 Last administered on 08/20/17at 22:56; Start 08/20/17 at 22:30 Active Scripts Active Reported Ibuprofen 400 Mg Tablet 400 Mg PO PRN Q4HRS PRN MDD 1200mg/24hrs Lorazepam 2 Mg/1 Ml Vial 1 Mg IM BID PRN Abilify Maintena (Aripiprazole) 400 Mg Suser.vial 400 Mg IM Q4WK Next dose due 08/26/17 Paroxetine Hcl 20 Mg Tablet 10 Mg PO DAILY Abilify (Aripiprazole) 5 Mg Tablet 5 Mg PO DAILY Fenofibrate 160 Mg Tablet 160 Mg PO QHS Olanzapine 5 Mg Tablet 5 Mg PO DAILY@1400 5mg PO daily at 14:00 Methylphenidate Hcl 10 Mg Tablet 10 Mg PO BID@0900,1300 Seroquel (Quetiapine Fumarate) 100 Mg Tablet 100 Mg PO BID Prevident 5000 (Sodium Fluoride) 100 Ml Gel..ml. 1 Carlee DT BID Selenium Sulfide 180 Ml Shampoo 1 Carlee TP TWICE WEEKLY Lorazepam 1 Mg Tablet 1 Mg PO PRN BID PRN Acetaminophen 500 Mg Tablet 500 Mg PO PRN Q4HRS PRN Risperdal Consta (Risperidone Microspheres) 25 Mg/2 Ml Disp.syrin 25 Mg IM Q2WKS Phenytoin 125 Mg/5 Ml Oral.susp 300 Mg PO QHS Zyprexa (Olanzapine) 20 Mg Tablet 20 Mg PO QHS Atorvastatin Calcium 10 Mg Tablet 10 Mg PO QHS Zyprexa (Olanzapine) 5 Mg Tablet 5 Mg PO DAILY@1400 Clozapine 200 Mg Tablet 500 Mg PO QHS Clozapine 200 Mg Tablet 200 Mg PO DAILY Detrol La (Tolterodine Tartrate) 2 Mg Cap.er.24h 2 Mg PO BID Depakote Er (Divalproex Sodium) 500 Mg Tab.er.24h 500 Mg PO DAILY Depakote Er (Divalproex Sodium) 500 Mg Tab.er.24h 1,000 Mg PO QHS [place] 3 1,000 Mg Softgel ([place]-3 Fatty Acids/Fish Oil) 1 Each Capsule 1,000 Mg PO DAILY Thera-M Tablet (Multivits,Ca,Minerals/Iron/Fa) 1 Each Tablet 1 Tab PO DAILY Vitamin D3 (Cholecalciferol (Vitamin D3)) 1,000 Unit Tablet 2,000 Unit PO DAILY Olanzapine 10 Mg Tablet 10 Mg PO DAILY Miralax (Polyethylene Glycol 3350) 119 Gm Powder 17 Gm PO DAILY Levothyroxine Sodium 200 Mcg Tablet 200 Mcg PO DAILY06 Pantoprazole Sodium 40 Mg Tablet.dr 40 Mg PO DAILY I have reviewed the current psychotropics carefully including drug interactions. Risk benefit ratio favors no change other than as noted in my dictated progress note. Diagnosis: Problems: (1) Dementia in Alzheimer's disease with delusions (2) Impulse control disorder (3) Schizoaffective disorder, chronic condition with acute exacerbation (4) Borderline intellectual disability STEVEN AYALA MD Aug 21, 2017 22:45
[2017-08-22] MEDS: LEVOTHYROXINE 100 MCG TABLET PO SCH (05:39)
[2017-08-22 05:55] VITALS: BP 98/53
[2017-08-22 07:27] LABS: VAL ACID 44 mcg/mL (50-100)
[2017-08-22] MEDS: OXYBUTYNIN CHLORIDE 5 MG TABLET PO SCH ×3 (08:04→20:12)
[2017-08-22] MEDS: SERTRALINE 25 MG TABLET. PO SCH (08:04)
[2017-08-22] MEDS: traZODone 50 MG TABLET. PO SCH ×3 (08:04→17:07)
[2017-08-22] MEDS: QUEtiapine 50 MG TABLET. PO SCH ×3 (08:04→17:07)
[2017-08-22] MEDS: cloZAPine 100 MG TABLET PO SCH ×2 (08:04→20:11)
[2017-08-22] MEDS: busPIRone 5 MG TABLET. PO SCH ×3 (08:04→17:07)
[2017-08-22] MEDS: DIVALPROEX 125 MG CAP.SPRINK PO SCH ×2 (08:05→20:08)
[2017-08-22] MEDS: POLYETHYLENE GLYCOL 3350 17 GM PACKET. PO SCH (08:05)
[2017-08-22 15:23] VITALS: BP 109/56
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
[2017-08-22] MEDS: PHENYTOIN SODIUM EXTENDED 100 MG CAPSULE PO SCH (20:10)
[2017-08-22] MEDS: MIRTAZAPINE 7.5 MG TABLET. PO SCH (20:11)
[2017-08-22] MEDS: ATORVASTATIN CALCIUM 10 MG TABLET. PO SCH (20:12)
--- NOTE | 2017-08-22 21:55 | PDOC ---
Exam Note: Chad Note: Please also refer to the separate dictated note~for this date of service dictated separately.~Patient seen individually. Discussed the patient with Nursing staff reviewed the chart.~Reviewed interim history and current functioning. Reviewed vital signs,~Labs/ Radiology~and current medications noted below. Continue current treatment with the changes noted in the dictated addendum note Assessment: Vital Signs: Vital Signs Date Time Temp Pulse Resp B/P (MAP) Pulse Ox O2 Delivery O2 Flow Rate FiO2 08/22/17 15:23 97.3 86 18 109/56 (73) 99 I&O Intake and Output 08/22/17 07:00 Intake Total 720 ml Balance 720 ml Intake Oral 720 ml # Voids 2 Labs: Laboratory Tests Test 08/22/17 06:42 Valproic Acid Level 44 mcg/mL (50-100) L Valproic Acid Last Dose Date 08/21/17 Valproic Acid Last Dose Time 2100 Current Medications: Meds: Current Medications Valproic Acid (Depakene) 500 mg STAT PO Last administered on 07/30/17at 21:21; Start 07/30/17 at 20:49; Stop 08/01/17 at 15:23; Status DC Divalproex Sodium (Depakote Er) 1,000 mg QHS PO ; Start 07/31/17 at 21:00; Stop 07/31/17 at 21:00; Status DC Divalproex Sodium (Depakote Er) 500 mg DAILY PO ; Start 07/31/17 at 09:00; Stop 07/31/17 at 09:00; Status DC Lorazepam (Ativan) 1 mg PRN BID PRN PO ANXIETY / AGITATION Last administered on 08/21/17at 20:44; Start 07/30/17 at 23:00 Olanzapine (ZyPREXA) 10 mg DAILY PO ; Start 07/31/17 at 09:00; Stop 07/31/17 at 09:00; Status DC Olanzapine (ZyPREXA) 5 mg DAILY@1400 PO ; Start 07/31/17 at 14:00; Stop at 14:00; Status DC Risperidone (RisperDAL CONSTA) 25 mg Q2WKS IM ; Start 08/13/17 at 09:00; Status UNV Clozapine (Clozaril) 200 mg DAILY PO Last administered on 08/22/17at 08:04; Start 07/31/17 at 09:00 Clozapine (Clozaril) 500 mg QHS PO Last administered on 08/22/17 20:11; Start 07/31/17 at 21:00 Olanzapine (ZyPREXA) 20 mg QHS PO Last administered on 07/31/17 20:28; Start 07/31/17 at 21:00; Stop 08/01/17 at 09:51; Status DC Atorvastatin Calcium (Lipitor) 10 mg QHS PO ; Start 07/31/17 at 21:00; Stop 03/10 at 21:00; Status DC Phenytoin Sodium (Dilantin) 300 mg QHS PO Last administered on 08/22/17 20:10; Start 07/31/17 at 21:00 Non-Formulary Medication (Sodium Fluoride (Prevident 5000)) 1 carlee BID DT ; Start 07/31/17 at 09:00; Stop 07/31/17 at 09:00; Status DC Oxybutynin Chloride (Ditropan) 5 mg [id number] PO Last administered on 08/22/17 20: 12; Start 07/31/17 at 09:00 Quetiapine Fumarate (SEROquel) 100 mg BID PO Last administered on 08/08/17 20: 51; Start 07/31/17 at 09:00; Stop 08/09/17 at 18:03; Status DC Acetaminophen (Tylenol) 500 mg PRN Q4HRS PRN PO PAIN Last administered on 16:28; Start 07/31/17 at 07:15 Levothyroxine Sodium (Synthroid) 200 mcg DAILY06 PO Last administered on at 05:39; Start 07/31/17 at 07:15 Fish Oil (Fish Oil) 1,000 mg DAILY PO Last administered on 07/31/17at 09:36; Start 07/31/17 at 09:00; Stop 08/01/17 at 09:51; Status DC Selenium Sulfide (Selsun) 1 carlee TWICEWEEKLY TP ; Start 07/31/17 at 07:30; Stop 07/31/17 at 14:29; Status DC Divalproex Sodium (Depakote Er) 1,000 mg QHS PO Last administered on 07/31/17at 20:26; Start 07/31/17 at 21:00; Stop 08/01/17 at 18:29; Status DC Atorvastatin Calcium (Lipitor) 10 mg QHS PO Last administered on 08/22/17at 20:12 ; Start 07/31/17 at 21:00 Divalproex Sodium (Depakote Er) 500 mg DAILY PO Last administered on 08/01/17at 09:10; Start 07/31/17 at 09:00; Stop 08/01/17 at 09:51; Status DC Olanzapine (ZyPREXA) 10 mg DAILY PO Last administered on 08/01/17at 09:30; Start 07/31/17 at 09:00; Stop 08/01/17 at 09:51; Status DC Olanzapine (ZyPREXA) 5 mg DAILY@1400 PO Last administered on 07/31/17at 15:07; Start 07/31/17 at 14:00; Stop 08/01/17 at 09:51; Status DC Selenium Sulfide (Selsun) 1 carlee TWICEWEEKLY TP ; Start 07/31/17 at 14:29 Divalproex Sodium (Depakote Er) 750 mg DAILY PO ; Start 08/02/17 at 09:00; Stop 08/02/17 at 09:00; Status DC Divalproex Sodium (Depakote Sprinkles) 750 mg BID PO Last administered on at 09:21; Start 08/01/17 at 21:00; Stop 08/04/17 at 14:28; Status DC Al Hydroxide/Mg Hydroxide (Mylanta Plus Xs) 30 ml PRN AFTMEAL PRN PO DYSPEPSIA Last administered on 08/18/17at 13:02; Start 08/03/17 at 12:00 Magnesium Hydroxide (Milk Of Magnesia) 2,400 mg PRN DAILY PRN PO CONSTIPATION Last administered on 08/14/17at 20:28; Start 08/03/17 at 17:00 Divalproex Sodium (Depakote Sprinkles) 1,000 mg BID PO Last administered on at 07:51; Start 08/04/17 at 21:00; Stop 08/07/17 at 18:35; Status DC Polyethylene Glycol (miraLAX) 17 gm DAILY PO Last administered on 08/22/17at 08: 05; Start 08/05/17 at 09:00 Trazodone HCl (Desyrel) 100 mg QHS PO Last administered on 08/18/17at 19:34; Start 08/06/17 at 21:00; Stop 08/19/17 at 18:44; Status DC Trazodone HCl (Desyrel) 100 mg PRN QHS PRN PO INSOMNIA Last administered on at 21:05; Start 08/06/17 at 19:00; Stop 08/19/17 at 18:44; Status DC Divalproex Sodium (Depakote Sprinkles) 1,250 mg BID PO Last administered on at 20:51; Start 08/07/17 at 21:00; Stop 08/09/17 at 18:31; Status DC Quetiapine Fumarate (SEROquel) 50 mg BID PO Last administered on 08/19/17 09: 19; Start 08/09/17 at 21:00; Stop 08/19/17 at 10:47; Status DC Divalproex Sodium (Depakote Sprinkles) 1,500 mg BID PO Last administered on at 08:25; Start 08/09/17 at 21:00; Stop 08/12/17 at 10:53; Status DC Trazodone HCl (Desyrel) 25 mg TID@0900,1300,1700 PO Last administered on at 17:10; Start 08/12/17 at 09:00; Stop 08/13/17 at 18:00; Status DC Divalproex Sodium (Depakote Sprinkles) 1,750 mg BID PO Last administered on at 09:32; Start 08/12/17 at 21:00; Stop 08/16/17 at 18:48; Status DC Trazodone HCl (Desyrel) 25 mg BID@1300,1700 PO Last administered on 08/22/17 17 :07; Start 08/14/17 at 13:00 Trazodone HCl (Desyrel) 50 mg DAILY PO Last administered on 08/22/17 08:04; Start 08/14/17 at 09:00 Trazodone HCl (Desyrel) 50 mg 1X ONCE PO Last administered on 08/13/17at 18:29 ; Start 08/13/17 at 18:30; Stop 08/13/17 at 18:31; Status DC Sertraline HCl (Zoloft) 25 mg DAILY PO Last administered on 08/17/17at 07:47; Start 08/15/17 at 09:00; Stop 08/17/17 at 11:00; Status DC Sertraline HCl (Zoloft) 50 mg DAILY PO Last administered on 08/22/17at 08:04; Start 08/18/17 at 09:00 Divalproex Sodium (Depakote Sprinkles) 2,000 mg BID PO Last administered on 08/22at 20:08; Start 08/16/17 at 21:00 Buspirone HCl (Buspar) 5 mg TID@0900,1300,1700 PO Last administered on at 17:07; Start 08/17/17 at 09:00 Quetiapine Fumarate (SEROquel) 50 mg TID@0900,1300,1700 PO Last administered on 08/22/17at 17:07; Start 08/19/17 at 13:00 Mirtazapine (Remeron) 7.5 mg QHS PO Last administered on 08/22/17at 20:11; Start 08/19/17 at 21:00 Hydroxyzine HCl (Atarax) 50 mg PRN QHS PRN PO INSOMNIA, MAY REPEAT X1 Last administered on 08/20/17at 22:56; Start 08/20/17 at 22:30 Active Scripts Active Reported Ibuprofen 400 Mg Tablet 400 Mg PO PRN Q4HRS PRN MDD 1200mg/24hrs Lorazepam 2 Mg/1 Ml Vial 1 Mg IM BID PRN Abilify Maintena (Aripiprazole) 400 Mg Suser.vial 400 Mg IM Q4WK Next dose due 08/26/17 Paroxetine Hcl 20 Mg Tablet 10 Mg PO DAILY Abilify (Aripiprazole) 5 Mg Tablet 5 Mg PO DAILY Fenofibrate 160 Mg Tablet 160 Mg PO QHS Olanzapine 5 Mg Tablet 5 Mg PO DAILY@1400 5mg PO daily at 14:00 Methylphenidate Hcl 10 Mg Tablet 10 Mg PO BID@0900,1300 Seroquel (Quetiapine Fumarate) 100 Mg Tablet 100 Mg PO BID Prevident 5000 (Sodium Fluoride) 100 Ml Gel..ml. 1 Carlee DT BID Selenium Sulfide 180 Ml Shampoo 1 Carlee TP TWICE WEEKLY Lorazepam 1 Mg Tablet 1 Mg PO PRN BID PRN Acetaminophen 500 Mg Tablet 500 Mg PO PRN Q4HRS PRN Risperdal Consta (Risperidone Microspheres) 25 Mg/2 Ml Disp.syrin 25 Mg IM Q2WKS Phenytoin 125 Mg/5 Ml Oral.susp 300 Mg PO QHS Zyprexa (Olanzapine) 20 Mg Tablet 20 Mg PO QHS Atorvastatin Calcium 10 Mg Tablet 10 Mg PO QHS Zyprexa (Olanzapine) 5 Mg Tablet 5 Mg PO DAILY@1400 Clozapine 200 Mg Tablet 500 Mg PO QHS Clozapine 200 Mg Tablet 200 Mg PO DAILY Detrol La (Tolterodine Tartrate) 2 Mg Cap.er.24h 2 Mg PO BID Depakote Er (Divalproex Sodium) 500 Mg Tab.er.24h 500 Mg PO DAILY Depakote Er (Divalproex Sodium) 500 Mg Tab.er.24h 1,000 Mg PO QHS [place] 3 1,000 Mg Softgel ([place]-3 Fatty Acids/Fish Oil) 1 Each Capsule 1,000 Mg PO DAILY Thera-M Tablet (Multivits,Ca,Minerals/Iron/Fa) 1 Each Tablet 1 Tab PO DAILY Vitamin D3 (Cholecalciferol (Vitamin D3)) 1,000 Unit Tablet 2,000 Unit PO DAILY Olanzapine 10 Mg Tablet 10 Mg PO DAILY Miralax (Polyethylene Glycol 3350) 119 Gm Powder 17 Gm PO DAILY Levothyroxine Sodium 200 Mcg Tablet 200 Mcg PO DAILY06 Pantoprazole Sodium 40 Mg Tablet.dr 40 Mg PO DAILY I have reviewed the current psychotropics carefully including drug interactions. Risk benefit ratio favors no change other than as noted in my dictated progress note. Diagnosis: Problems: (1) Dementia in Alzheimer's disease with delusions (2) Impulse control disorder (3) Schizoaffective disorder, chronic condition with acute exacerbation (4) Borderline intellectual disability STEVEN AYALA MD Aug 22, 2017 21:55
[2017-08-23] MEDS: LEVOTHYROXINE 100 MCG TABLET PO SCH (05:25)
[2017-08-23 06:14] VITALS: BP 129/84
[2017-08-23 06:49] LABS: BASO # 0.1 x10^3/uL (0.0-0.2); BASO % 2 % (0-3); EOS # 0.2 x10^3/uL (0.0-0.7); EOS % 4 % (0-3); HEMATOCRIT 42.7 % (39.0-53.0); HEMOGLOBIN 14.4 g/dL (13.0-17.5); LYMPH # 2.4 x10^3/uL (1.0-4.8); LYMPH % 42 % (24-48); MEAN CORPUSCULAR HEMOGLOBIN 31 pg (25-35); MEAN CORPUSCULAR HGB CONC 34 g/dL (31-37); MEAN CORPUSCULAR VOLUME 93 fL (79-100); MONO # 0.6 x10^3/uL (0.0-1.1); MONO % 10 % (0-9); NEUT # 2.4 x10^3uL (1.8-7.7); NEUT % 42 % (31-73); PLATELET COUNT 190 x10^3/uL (140-400); RED BLOOD COUNT 4.61 x10^6/uL (4.30-5.70); RED CELL DISTRIBUTION WIDTH 13.3 % (11.5-14.5); WHITE BLOOD COUNT 5.7 x10^3/uL (4.0-11.0)
[2017-08-23] MEDS: POLYETHYLENE GLYCOL 3350 17 GM PACKET. PO SCH (09:04)
[2017-08-23] MEDS: cloZAPine 100 MG TABLET PO SCH ×2 (09:05→19:26)
[2017-08-23] MEDS: busPIRone 5 MG TABLET. PO SCH ×3 (09:05→17:49)
[2017-08-23] MEDS: OXYBUTYNIN CHLORIDE 5 MG TABLET PO SCH ×3 (09:05→19:30)
[2017-08-23] MEDS: DIVALPROEX 125 MG CAP.SPRINK PO SCH ×2 (09:05→19:29)
[2017-08-23] MEDS: QUEtiapine 50 MG TABLET. PO SCH ×3 (09:07→17:49)
[2017-08-23] MEDS: SERTRALINE 25 MG TABLET. PO SCH (09:07)
[2017-08-23] MEDS: traZODone 50 MG TABLET. PO SCH ×3 (09:07→17:49)
[2017-08-23] MEDS: ACETAMINOPHEN 500 MG TABLET PO PRN (13:11)
--- NOTE | 2017-08-23 15:44 | PN ---
DATE: 08/21/2017 This is a late entry 08/21/2017, covers elements not covered in my initial note 08/21/2017. Met with the patient evening of 08/21/2017. The patient slept 5 hours, previous evening less obsessive. Hallucinations appeared better per nursing report. Has been napping off and on during the day. 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 We will be checking a valproic acid level in the morning. REVIEW OF SYSTEMS: No CV, , pulmonary, eye, ENT system symptoms on review. Reliability poor. MENTAL STATUS EXAM: Oriented to himself and situation. Speech coherent, still can be rapid at times. Abstraction fair, computation impaired, language function intact, attention span short. Mood and affect remain somewhat labile but improved. LABS: Valproic acid level at last check was 44. We since adjusted the Depakote, reduced the trazodone, which could have been suppressing the valproic acid levels and we will repeat a level in the morning of 08/22/2017. IMPRESSION: Schizoaffective disorder, bipolar type, mixed with psychotic features, in partial remission, intellectual disability. Rest unchanged. PLAN: Continue current psychotropics mentioned in my initial note. MAN Suleman AYALA MD DR: ADALBERTO/garry JOB#: [id number] / [id number]
[2017-08-23 15:49] VITALS: BP 93/62
[2017-08-23] MEDS: MIRTAZAPINE 7.5 MG TABLET. PO SCH (19:25)
[2017-08-23] MEDS: ATORVASTATIN CALCIUM 10 MG TABLET. PO SCH (19:26)
[2017-08-23] MEDS: PHENYTOIN SODIUM EXTENDED 100 MG CAPSULE PO SCH (19:28)
--- NOTE | 2017-08-23 20:55 | PDOC ---
Exam Note: Chad Note: Please also refer to the separate dictated note~for this date of service dictated separately.~Patient seen individually. Discussed the patient with Nursing staff reviewed the chart.~Reviewed interim history and current functioning. Reviewed vital signs,~Labs/ Radiology~and current medications noted below. Continue current treatment with the changes noted in the dictated addendum note Assessment: Vital Signs: Vital Signs Date Time Temp Pulse Resp B/P (MAP) Pulse Ox O2 Delivery O2 Flow Rate FiO2 08/23/17 15:49 97.6 69 18 93/62 (72) 100 Room Air I&O Intake and Output 08/23/17 07:00 Intake Total 1680 ml Balance 1680 ml Intake Oral 1680 ml # Voids 2 Labs: Laboratory Tests Test 08/23/17 06:40 White Blood Count 5.7 x10^3/uL (4.0-11.0) Red Blood Count 4.61 x10^6/uL (4.30-5.70) Hemoglobin 14.4 g/dL (13.0-17.5) Hematocrit 42.7 % (39.0-53.0) Mean Corpuscular Volume 93 fL (79-100) Mean Corpuscular Hemoglobin 31 pg (25-35) Mean Corpuscular Hemoglobin Concent 34 g/dL (31-37) Red Cell Distribution Width 13.3 % (11.5-14.5) Platelet Count 190 x10^3/uL (140-400) Neutrophils (%) (Auto) 42 % (31-73) Lymphocytes (%) (Auto) 42 % (24-48) Monocytes (%) (Auto) 10 % (0-9) H Eosinophils (%) (Auto) 4 % (0-3) H Basophils (%) (Auto) 2 % (0-3) Neutrophils # (Auto) 2.4 x10^3uL (1.8-7.7) Lymphocytes # (Auto) 2.4 x10^3/uL (1.0-4.8) Monocytes # (Auto) 0.6 x10^3/uL (0.0-1.1) Eosinophils # (Auto) 0.2 x10^3/uL (0.0-0.7) Basophils # (Auto) 0.1 x10^3/uL (0.0-0.2) Current Medications: Meds: Current Medications Valproic Acid (Depakene) 500 mg STAT PO Last administered on 07/30/17at 21:21; Start 07/30/17 at 20:49; Stop 08/01/17 at 15:23; Status DC Divalproex Sodium (Depakote Er) 1,000 mg QHS PO ; Start 07/31/17 at 21:00; Stop 07/31/17 at 21:00; Status DC Divalproex Sodium (Depakote Er) 500 mg DAILY PO ; Start 07/31/17 at 09:00; Stop 07/31/17 at 09:00; Status DC Lorazepam (Ativan) 1 mg PRN BID PRN PO ANXIETY / AGITATION Last administered on 08/21/17at 20:44; Start 07/30/17 at 23:00 Olanzapine (ZyPREXA) 10 mg DAILY PO ; Start 07/31/17 at 09:00; Stop 07/31/17 at 09:00; Status DC Olanzapine (ZyPREXA) 5 mg DAILY@1400 PO ; Start 07/31/17 at 14:00; Stop at 14:00; Status DC Risperidone (RisperDAL CONSTA) 25 mg Q2WKS IM ; Start 08/13/17 at 09:00; Status UNV Clozapine (Clozaril) 200 mg DAILY PO Last administered on 08/23/17at 09:05; Start 07/31/17 at 09:00 Clozapine (Clozaril) 500 mg QHS PO Last administered on 08/23/17at 19:26; Start 07/31/17 at 21:00 Olanzapine (ZyPREXA) 20 mg QHS PO Last administered on 07/31/17at 20:28; Start 07/31/17 at 21:00; Stop 08/01/17 at 09:51; Status DC Atorvastatin Calcium (Lipitor) 10 mg QHS PO ; Start 07/31/17 at 21:00; Stop 03/10 at 21:00; Status DC Phenytoin Sodium (Dilantin) 300 mg QHS PO Last administered on 08/23/17at 19:28; Start 07/31/17 at 21:00 Non-Formulary Medication (Sodium Fluoride (Prevident 5000)) 1 carlee BID DT ; Start 07/31/17 at 09:00; Stop 07/31/17 at 09:00; Status DC Oxybutynin Chloride (Ditropan) 5 mg [id number] PO Last administered on 08/23/17 19: 30; Start 07/31/17 at 09:00 Quetiapine Fumarate (SEROquel) 100 mg BID PO Last administered on 08/08/17 20: 51; Start 07/31/17 at 09:00; Stop 08/09/17 at 18:03; Status DC Acetaminophen (Tylenol) 500 mg PRN Q4HRS PRN PO PAIN Last administered on 13:11; Start 07/31/17 at 07:15 Levothyroxine Sodium (Synthroid) 200 mcg DAILY06 PO Last administered on 05:25; Start 07/31/17 at 07:15 Fish Oil (Fish Oil) 1,000 mg DAILY PO Last administered on 07/31/17 09:36; Start 07/31/17 at 09:00; Stop 08/01/17 at 09:51; Status DC Selenium Sulfide (Selsun) 1 carlee TWICEWEEKLY TP ; Start 07/31/17 at 07:30; Stop 07/31/17 at 14:29; Status DC Divalproex Sodium (Depakote Er) 1,000 mg QHS PO Last administered on 07/31/17 20:26; Start 07/31/17 at 21:00; Stop 08/01/17 at 18:29; Status DC Atorvastatin Calcium (Lipitor) 10 mg QHS PO Last administered on 08/23/17 19:26 ; Start 07/31/17 at 21:00 Divalproex Sodium (Depakote Er) 500 mg DAILY PO Last administered on 08/01/17 09:10; Start 07/31/17 at 09:00; Stop 08/01/17 at 09:51; Status DC Olanzapine (ZyPREXA) 10 mg DAILY PO Last administered on 08/01/17 09:30; Start 07/31/17 at 09:00; Stop 08/01/17 at 09:51; Status DC Olanzapine (ZyPREXA) 5 mg DAILY@1400 PO Last administered on 07/31/17 15:07; Start 07/31/17 at 14:00; Stop 08/01/17 at 09:51; Status DC Selenium Sulfide (Selsun) 1 carlee TWICEWEEKLY TP ; Start 07/31/17 at 14:29 Divalproex Sodium (Depakote Er) 750 mg DAILY PO ; Start 08/02/17 at 09:00; Stop 08/02/17 at 09:00; Status DC Divalproex Sodium (Depakote Sprinkles) 750 mg BID PO Last administered on at 09:21; Start 08/01/17 at 21:00; Stop 08/04/17 at 14:28; Status DC Al Hydroxide/Mg Hydroxide (Mylanta Plus Xs) 30 ml PRN AFTMEAL PRN PO DYSPEPSIA Last administered on 08/18/17at 13:02; Start 08/03/17 at 12:00 Magnesium Hydroxide (Milk Of Magnesia) 2,400 mg PRN DAILY PRN PO CONSTIPATION Last administered on 08/14/17at 20:28; Start 08/03/17 at 17:00 Divalproex Sodium (Depakote Sprinkles) 1,000 mg BID PO Last administered on at 07:51; Start 08/04/17 at 21:00; Stop 08/07/17 at 18:35; Status DC Polyethylene Glycol (miraLAX) 17 gm DAILY PO Last administered on 08/23/17at 09: 04; Start 08/05/17 at 09:00 Trazodone HCl (Desyrel) 100 mg QHS PO Last administered on 08/18/17at 19:34; Start 08/06/17 at 21:00; Stop 08/19/17 at 18:44; Status DC Trazodone HCl (Desyrel) 100 mg PRN QHS PRN PO INSOMNIA Last administered on at 21:05; Start 08/06/17 at 19:00; Stop 08/19/17 at 18:44; Status DC Divalproex Sodium (Depakote Sprinkles) 1,250 mg BID PO Last administered on at 20:51; Start 08/07/17 at 21:00; Stop 08/09/17 at 18:31; Status DC Quetiapine Fumarate (SEROquel) 50 mg BID PO Last administered on 08/19/17at 09: 19; Start 08/09/17 at 21:00; Stop 08/19/17 at 10:47; Status DC Divalproex Sodium (Depakote Sprinkles) 1,500 mg BID PO Last administered on 08:25; Start 08/09/17 at 21:00; Stop 08/12/17 at 10:53; Status DC Trazodone HCl (Desyrel) 25 mg TID@0900,1300,1700 PO Last administered on 17:10; Start 08/12/17 at 09:00; Stop 08/13/17 at 18:00; Status DC Divalproex Sodium (Depakote Sprinkles) 1,750 mg BID PO Last administered on at 09:32; Start 08/12/17 at 21:00; Stop 08/16/17 at 18:48; Status DC Trazodone HCl (Desyrel) 25 mg BID@1300,1700 PO Last administered on 08/23/17 17 :49; Start 08/14/17 at 13:00 Trazodone HCl (Desyrel) 50 mg DAILY PO Last administered on 08/23/17 09:07; Start 08/14/17 at 09:00 Trazodone HCl (Desyrel) 50 mg 1X ONCE PO Last administered on 08/13/17 18:29 ; Start 08/13/17 at 18:30; Stop 08/13/17 at 18:31; Status DC Sertraline HCl (Zoloft) 25 mg DAILY PO Last administered on 08/17/17at 07:47; Start 08/15/17 at 09:00; Stop 08/17/17 at 11:00; Status DC Sertraline HCl (Zoloft) 50 mg DAILY PO Last administered on 08/23/17 09:07; Start 08/18/17 at 09:00 Divalproex Sodium (Depakote Sprinkles) 2,000 mg BID PO Last administered on 08/23 09:05; Start 08/16/17 at 21:00; Stop 08/23/17 at 18:02; Status DC Buspirone HCl (Buspar) 5 mg TID@0900,1300,1700 PO Last administered on 17:49; Start 08/17/17 at 09:00 Quetiapine Fumarate (SEROquel) 50 mg TID@0900,1300,1700 PO Last administered on 08/23/17at 17:49; Start 08/19/17 at 13:00 Mirtazapine (Remeron) 7.5 mg QHS PO Last administered on 08/23/17at 19:25; Start 08/19/17 at 21:00 Hydroxyzine HCl (Atarax) 50 mg PRN QHS PRN PO INSOMNIA, MAY REPEAT X1 Last administered on 08/20/17at 22:56; Start 08/20/17 at 22:30 Divalproex Sodium (Depakote Sprinkles) 2,250 mg BID PO Last administered on 08/23 19:29; Start 08/23/17 at 21:00 Active Scripts Active Reported Ibuprofen 400 Mg Tablet 400 Mg PO PRN Q4HRS PRN MDD 1200mg/24hrs Lorazepam 2 Mg/1 Ml Vial 1 Mg IM BID PRN Abilify Maintena (Aripiprazole) 400 Mg Suser.vial 400 Mg IM Q4WK Next dose due 08/26/17 Paroxetine Hcl 20 Mg Tablet 10 Mg PO DAILY Abilify (Aripiprazole) 5 Mg Tablet 5 Mg PO DAILY Fenofibrate 160 Mg Tablet 160 Mg PO QHS Olanzapine 5 Mg Tablet 5 Mg PO DAILY@1400 5mg PO daily at 14:00 Methylphenidate Hcl 10 Mg Tablet 10 Mg PO BID@0900,1300 Seroquel (Quetiapine Fumarate) 100 Mg Tablet 100 Mg PO BID Prevident 5000 (Sodium Fluoride) 100 Ml Gel..ml. 1 Carlee DT BID Selenium Sulfide 180 Ml Shampoo 1 Carlee TP TWICE WEEKLY Lorazepam 1 Mg Tablet 1 Mg PO PRN BID PRN Acetaminophen 500 Mg Tablet 500 Mg PO PRN Q4HRS PRN Risperdal Consta (Risperidone Microspheres) 25 Mg/2 Ml Disp.syrin 25 Mg IM Q2WKS Phenytoin 125 Mg/5 Ml Oral.susp 300 Mg PO QHS Zyprexa (Olanzapine) 20 Mg Tablet 20 Mg PO QHS Atorvastatin Calcium 10 Mg Tablet 10 Mg PO QHS Zyprexa (Olanzapine) 5 Mg Tablet 5 Mg PO DAILY@1400 Clozapine 200 Mg Tablet 500 Mg PO QHS Clozapine 200 Mg Tablet 200 Mg PO DAILY Detrol La (Tolterodine Tartrate) 2 Mg Cap.er.24h 2 Mg PO BID Depakote Er (Divalproex Sodium) 500 Mg Tab.er.24h 500 Mg PO DAILY Depakote Er (Divalproex Sodium) 500 Mg Tab.er.24h 1,000 Mg PO QHS [place] 3 1,000 Mg Softgel ([place]-3 Fatty Acids/Fish Oil) 1 Each Capsule 1,000 Mg PO DAILY Thera-M Tablet (Multivits,Ca,Minerals/Iron/Fa) 1 Each Tablet 1 Tab PO DAILY Vitamin D3 (Cholecalciferol (Vitamin D3)) 1,000 Unit Tablet 2,000 Unit PO DAILY Olanzapine 10 Mg Tablet 10 Mg PO DAILY Miralax (Polyethylene Glycol 3350) 119 Gm Powder 17 Gm PO DAILY Levothyroxine Sodium 200 Mcg Tablet 200 Mcg PO DAILY06 Pantoprazole Sodium 40 Mg Tablet.dr 40 Mg PO DAILY I have reviewed the current psychotropics carefully including drug interactions. Risk benefit ratio favors no change other than as noted in my dictated progress note. Diagnosis: Problems: (1) Dementia in Alzheimer's disease with delusions (2) Impulse control disorder (3) Schizoaffective disorder, chronic condition with acute exacerbation (4) Borderline intellectual disability STEVEN AYALA MD Aug 23, 2017 20:55
[2017-08-23] MEDS: LORazepam 1 MG TABLET PO PRN (21:10)
--- NOTE | 2017-08-24 03:06 | PN ---
DATE: 08/22/2017 PSYCHIATRIC PROGRESS NOTE This is a late entry for 08/22/2017, covers elements not covered in my initial note of 08/22/2017. SUBJECTIVE: I met with the patient the evening of 08/22/2017. Overall, the patient has had some intermittent hallucinations, but on close questioning and observation, some of this could be a reflection of his intellectual disability and misperceptions in an attempt to reduce his own anxiety. He comes up with imaginary figures which are not true hallucinations, but we will continue to monitor for this. REVIEW OF SYSTEMS: No CV, , pulmonary, eye, ENT system symptoms on review. Reliability varies. MENTAL STATUS EXAM: Oriented to himself and situation. Speech coherent, can be rapid, loud at times, less so than before. Abstraction fair, computation impaired, language function intact, attention span short. Mood and affect labile, but less so than before. LABORATORY DATA: Reviewed. IMPRESSION: Schizoaffective disorder, bipolar type, mixed intellectual disability. Rest unchanged. PLAN: Continue current psychotropics. Check CBC, absolute neutrophil count consequent to Clozaril. Adjust Depakote with repeat level due. MAN Suleman AYALA MD DR: ADALBERTO/garry JOB#: [id number] / [id number]
[2017-08-24] MEDS: LEVOTHYROXINE 100 MCG TABLET PO SCH (05:18)
[2017-08-24 05:58] VITALS: BP 117/76
[2017-08-24] MEDS: traZODone 50 MG TABLET. PO SCH ×3 (09:15→17:20)
[2017-08-24] MEDS: busPIRone 5 MG TABLET. PO SCH ×3 (09:15→17:20)
[2017-08-24] MEDS: POLYETHYLENE GLYCOL 3350 17 GM PACKET. PO SCH (09:15)
[2017-08-24] MEDS: QUEtiapine 50 MG TABLET. PO SCH ×3 (09:15→17:20)
[2017-08-24] MEDS: DIVALPROEX 125 MG CAP.SPRINK PO SCH ×2 (09:16→19:02)
[2017-08-24] MEDS: OXYBUTYNIN CHLORIDE 5 MG TABLET PO SCH ×3 (09:16→19:03)
[2017-08-24] MEDS: cloZAPine 100 MG TABLET PO SCH ×2 (09:16→19:02)
[2017-08-24] MEDS: SERTRALINE 25 MG TABLET. PO SCH (09:16)
[2017-08-24 15:34] VITALS: BP 111/69
[2017-08-24] MEDS: MAG HYDROX/AL HYDROX/SIMETH 30 ML ORAL.SUSP PO PRN (18:45)
[2017-08-24] MEDS: PHENYTOIN SODIUM EXTENDED 100 MG CAPSULE PO SCH (19:02)
[2017-08-24] MEDS: ATORVASTATIN CALCIUM 10 MG TABLET. PO SCH (19:02)
[2017-08-24] MEDS: MIRTAZAPINE 7.5 MG TABLET. PO SCH (19:03)
[2017-08-24] MEDS: ACETAMINOPHEN 500 MG TABLET PO PRN (19:11)
[2017-08-24] MEDS: LORazepam 1 MG TABLET PO PRN (19:20)
--- NOTE | 2017-08-24 20:53 | PDOC ---
Exam Note: Chad Note: Please also refer to the separate dictated note~for this date of service dictated separately.~Patient seen individually. Discussed the patient with Nursing staff reviewed the chart.~Reviewed interim history and current functioning. Reviewed vital signs,~Labs/ Radiology~and current medications noted below. Continue current treatment with the changes noted in the dictated addendum note Assessment: Vital Signs: Vital Signs Date Time Temp Pulse Resp B/P (MAP) Pulse Ox O2 Delivery O2 Flow Rate FiO2 08/24/17 15:34 96.6 80 16 111/69 (83) 99 08/23/17 15:49 Room Air I&O Intake and Output 08/24/17 07:00 Intake Total 1860 ml Output Total 100 ml Balance 1760 ml Intake Oral 1860 ml Output Emesis 100 ml # Voids 2 # Bowel Movements 1 Current Medications: Meds: Current Medications Valproic Acid (Depakene) 500 mg STAT PO Last administered on 07/30/17at 21:21; Start 07/30/17 at 20:49; Stop 08/01/17 at 15:23; Status DC Divalproex Sodium (Depakote Er) 1,000 mg QHS PO ; Start 07/31/17 at 21:00; Stop 07/31/17 at 21:00; Status DC Divalproex Sodium (Depakote Er) 500 mg DAILY PO ; Start 07/31/17 at 09:00; Stop 07/31/17 at 09:00; Status DC Lorazepam (Ativan) 1 mg PRN BID PRN PO ANXIETY / AGITATION Last administered on 08/24/17at 19:20; Start 07/30/17 at 23:00 Olanzapine (ZyPREXA) 10 mg DAILY PO ; Start 07/31/17 at 09:00; Stop 07/31/17 at 09:00; Status DC Olanzapine (ZyPREXA) 5 mg DAILY@1400 PO ; Start 07/31/17 at 14:00; Stop at 14:00; Status DC Risperidone (RisperDAL CONSTA) 25 mg Q2WKS IM ; Start 08/13/17 at 09:00; Status UNV Clozapine (Clozaril) 200 mg DAILY PO Last administered on 08/24/17at 09:16; Start 07/31/17 at 09:00 Clozapine (Clozaril) 500 mg QHS PO Last administered on 08/24/17 19:02; Start 07/31/17 at 21:00 Olanzapine (ZyPREXA) 20 mg QHS PO Last administered on 07/31/17 20:28; Start 07/31/17 at 21:00; Stop 08/01/17 at 09:51; Status DC Atorvastatin Calcium (Lipitor) 10 mg QHS PO ; Start 07/31/17 at 21:00; Stop 03/10 at 21:00; Status DC Phenytoin Sodium (Dilantin) 300 mg QHS PO Last administered on 08/24/17 19:02; Start 07/31/17 at 21:00 Non-Formulary Medication (Sodium Fluoride (Prevident 5000)) 1 carlee BID DT ; Start 07/31/17 at 09:00; Stop 07/31/17 at 09:00; Status DC Oxybutynin Chloride (Ditropan) 5 mg [id number] PO Last administered on 08/24/17 19: 03; Start 07/31/17 at 09:00 Quetiapine Fumarate (SEROquel) 100 mg BID PO Last administered on 08/08/17 20: 51; Start 07/31/17 at 09:00; Stop 08/09/17 at 18:03; Status DC Acetaminophen (Tylenol) 500 mg PRN Q4HRS PRN PO PAIN Last administered on 19:11; Start 07/31/17 at 07:15 Levothyroxine Sodium (Synthroid) 200 mcg DAILY06 PO Last administered on 05:18; Start 07/31/17 at 07:15 Fish Oil (Fish Oil) 1,000 mg DAILY PO Last administered on 07/31/17at 09:36; Start 07/31/17 at 09:00; Stop 08/01/17 at 09:51; Status DC Selenium Sulfide (Selsun) 1 carlee TWICEWEEKLY TP ; Start 07/31/17 at 07:30; Stop 07/31/17 at 14:29; Status DC Divalproex Sodium (Depakote Er) 1,000 mg QHS PO Last administered on 07/31/17 20:26; Start 07/31/17 at 21:00; Stop 08/01/17 at 18:29; Status DC Atorvastatin Calcium (Lipitor) 10 mg QHS PO Last administered on 08/24/17 19:02 ; Start 07/31/17 at 21:00 Divalproex Sodium (Depakote Er) 500 mg DAILY PO Last administered on 08/01/17at 09:10; Start 07/31/17 at 09:00; Stop 08/01/17 at 09:51; Status DC Olanzapine (ZyPREXA) 10 mg DAILY PO Last administered on 08/01/17at 09:30; Start 07/31/17 at 09:00; Stop 08/01/17 at 09:51; Status DC Olanzapine (ZyPREXA) 5 mg DAILY@1400 PO Last administered on 07/31/17at 15:07; Start 07/31/17 at 14:00; Stop 08/01/17 at 09:51; Status DC Selenium Sulfide (Selsun) 1 carlee TWICEWEEKLY TP ; Start 07/31/17 at 14:29 Divalproex Sodium (Depakote Er) 750 mg DAILY PO ; Start 08/02/17 at 09:00; Stop 08/02/17 at 09:00; Status DC Divalproex Sodium (Depakote Sprinkles) 750 mg BID PO Last administered on at 09:21; Start 08/01/17 at 21:00; Stop 08/04/17 at 14:28; Status DC Al Hydroxide/Mg Hydroxide (Mylanta Plus Xs) 30 ml PRN AFTMEAL PRN PO DYSPEPSIA Last administered on 08/24/17 18:45; Start 08/03/17 at 12:00 Magnesium Hydroxide (Milk Of Magnesia) 2,400 mg PRN DAILY PRN PO CONSTIPATION Last administered on 08/14/17 20:28; Start 08/03/17 at 17:00 Divalproex Sodium (Depakote Sprinkles) 1,000 mg BID PO Last administered on 07:51; Start 08/04/17 at 21:00; Stop 08/07/17 at 18:35; Status DC Polyethylene Glycol (miraLAX) 17 gm DAILY PO Last administered on 08/24/17 09: 15; Start 08/05/17 at 09:00 Trazodone HCl (Desyrel) 100 mg QHS PO Last administered on 08/18/17at 19:34; Start 08/06/17 at 21:00; Stop 08/19/17 at 18:44; Status DC Trazodone HCl (Desyrel) 100 mg PRN QHS PRN PO INSOMNIA Last administered on at 21:05; Start 08/06/17 at 19:00; Stop 08/19/17 at 18:44; Status DC Divalproex Sodium (Depakote Sprinkles) 1,250 mg BID PO Last administered on at 20:51; Start 08/07/17 at 21:00; Stop 08/09/17 at 18:31; Status DC Quetiapine Fumarate (SEROquel) 50 mg BID PO Last administered on 08/19/17at 09: 19; Start 08/09/17 at 21:00; Stop 08/19/17 at 10:47; Status DC Divalproex Sodium (Depakote Sprinkles) 1,500 mg BID PO Last administered on at 08:25; Start 08/09/17 at 21:00; Stop 08/12/17 at 10:53; Status DC Trazodone HCl (Desyrel) 25 mg TID@0900,1300,1700 PO Last administered on at 17:10; Start 08/12/17 at 09:00; Stop 08/13/17 at 18:00; Status DC Divalproex Sodium (Depakote Sprinkles) 1,750 mg BID PO Last administered on at 09:32; Start 08/12/17 at 21:00; Stop 08/16/17 at 18:48; Status DC Trazodone HCl (Desyrel) 25 mg BID@1300,1700 PO Last administered on 08/24/17 17 :20; Start 08/14/17 at 13:00 Trazodone HCl (Desyrel) 50 mg DAILY PO Last administered on 08/24/17 09:15; Start 08/14/17 at 09:00 Trazodone HCl (Desyrel) 50 mg 1X ONCE PO Last administered on 08/13/17at 18:29 ; Start 08/13/17 at 18:30; Stop 08/13/17 at 18:31; Status DC Sertraline HCl (Zoloft) 25 mg DAILY PO Last administered on 08/17/17at 07:47; Start 08/15/17 at 09:00; Stop 08/17/17 at 11:00; Status DC Sertraline HCl (Zoloft) 50 mg DAILY PO Last administered on 08/24/17at 09:16; Start 08/18/17 at 09:00 Divalproex Sodium (Depakote Sprinkles) 2,000 mg BID PO Last administered on 08/23at 09:05; Start 08/16/17 at 21:00; Stop 08/23/17 at 18:02; Status DC Buspirone HCl (Buspar) 5 mg TID@0900,1300,1700 PO Last administered on 17:20; Start 08/17/17 at 09:00 Quetiapine Fumarate (SEROquel) 50 mg TID@0900,1300,1700 PO Last administered on 08/24/17at 17:20; Start 08/19/17 at 13:00 Mirtazapine (Remeron) 7.5 mg QHS PO Last administered on 08/24/17 19:03; Start 08/19/17 at 21:00 Hydroxyzine HCl (Atarax) 50 mg PRN QHS PRN PO INSOMNIA, MAY REPEAT X1 Last administered on 08/20/17at 22:56; Start 08/20/17 at 22:30 Divalproex Sodium (Depakote Sprinkles) 2,250 mg BID PO Last administered on 08/24at 19:02; Start 08/23/17 at 21:00 Active Scripts Active Reported Ibuprofen 400 Mg Tablet 400 Mg PO PRN Q4HRS PRN MDD 1200mg/24hrs Lorazepam 2 Mg/1 Ml Vial 1 Mg IM BID PRN Abilify Maintena (Aripiprazole) 400 Mg Suser.vial 400 Mg IM Q4WK Next dose due 08/26/17 Paroxetine Hcl 20 Mg Tablet 10 Mg PO DAILY Abilify (Aripiprazole) 5 Mg Tablet 5 Mg PO DAILY Fenofibrate 160 Mg Tablet 160 Mg PO QHS Olanzapine 5 Mg Tablet 5 Mg PO DAILY@1400 5mg PO daily at 14:00 Methylphenidate Hcl 10 Mg Tablet 10 Mg PO BID@0900,1300 Seroquel (Quetiapine Fumarate) 100 Mg Tablet 100 Mg PO BID Prevident 5000 (Sodium Fluoride) 100 Ml Gel..ml. 1 Carlee DT BID Selenium Sulfide 180 Ml Shampoo 1 Carlee TP TWICE WEEKLY Lorazepam 1 Mg Tablet 1 Mg PO PRN BID PRN Acetaminophen 500 Mg Tablet 500 Mg PO PRN Q4HRS PRN Risperdal Consta (Risperidone Microspheres) 25 Mg/2 Ml Disp.syrin 25 Mg IM Q2WKS Phenytoin 125 Mg/5 Ml Oral.susp 300 Mg PO QHS Zyprexa (Olanzapine) 20 Mg Tablet 20 Mg PO QHS Atorvastatin Calcium 10 Mg Tablet 10 Mg PO QHS Zyprexa (Olanzapine) 5 Mg Tablet 5 Mg PO DAILY@1400 Clozapine 200 Mg Tablet 500 Mg PO QHS Clozapine 200 Mg Tablet 200 Mg PO DAILY Detrol La (Tolterodine Tartrate) 2 Mg Cap.er.24h 2 Mg PO BID Depakote Er (Divalproex Sodium) 500 Mg Tab.er.24h 500 Mg PO DAILY Depakote Er (Divalproex Sodium) 500 Mg Tab.er.24h 1,000 Mg PO QHS [place] 3 1,000 Mg Softgel ([place]-3 Fatty Acids/Fish Oil) 1 Each Capsule 1,000 Mg PO DAILY Thera-M Tablet (Multivits,Ca,Minerals/Iron/Fa) 1 Each Tablet 1 Tab PO DAILY Vitamin D3 (Cholecalciferol (Vitamin D3)) 1,000 Unit Tablet 2,000 Unit PO DAILY Olanzapine 10 Mg Tablet 10 Mg PO DAILY Miralax (Polyethylene Glycol 3350) 119 Gm Powder 17 Gm PO DAILY Levothyroxine Sodium 200 Mcg Tablet 200 Mcg PO DAILY06 Pantoprazole Sodium 40 Mg Tablet.dr 40 Mg PO DAILY I have reviewed the current psychotropics carefully including drug interactions. Risk benefit ratio favors no change other than as noted in my dictated progress note. Diagnosis: Problems: (1) Dementia in Alzheimer's disease with delusions (2) Impulse control disorder (3) Schizoaffective disorder, chronic condition with acute exacerbation (4) Borderline intellectual disability STEVEN AYALA MD Aug 24, 2017 20:53
[2017-08-24] MEDS: hydrOXYzine HCL 25 MG TABLET PO PRN (21:02)
--- NOTE | 2017-08-24 21:21 | PN ---
DATE: 08/23/2017 This is a late entry for 08/23/2017 covers elements not covered in my initial note of 08/23/2017. SUBJECTIVE: I met with the patient in the evening of 08/23/2017. The patient is more compliant with meds in the morning and assessment somewhat more somatically preoccupied in the afternoon, complains of hip pain and then GI symptoms bothering him and swallowing problems. He did have an episode of vomiting, anxious, obsessive, but generally better. REVIEW OF SYSTEMS: As noted above. No CV, , pulmonary system symptoms on review. MENTAL STATUS EXAM: Oriented to himself and situation. Speech coherent, rapid, loud at times, less so than before. Abstraction fair, computation impaired, language function intact, attention span short. Mood and affect remain somewhat labile, but improved. LABORATORY DATA: Reviewed. Valproic acid level is 44. WBC and absolute neutrophil counts are stable for Clozaril. IMPRESSION: Schizoaffective disorder, bipolar type, mixed with psychotic features, intellectual disability. PLAN: Increase Depakote from 2000 mg twice a day to 2250 mg twice a day. Check CBC, CMP, valproic acid level in 3 days. Continue rest unchanged per initial note. MAN Suleman AYALA MD DR: ADALBERTO/garry JOB#: [id number] / [id number]
[2017-08-25] MEDS: LEVOTHYROXINE 100 MCG TABLET PO SCH (05:15)
[2017-08-25 05:53] VITALS: BP 104/45
[2017-08-25] MEDS: cloZAPine 100 MG TABLET PO SCH ×2 (08:03→19:18)
[2017-08-25] MEDS: SERTRALINE 25 MG TABLET. PO SCH (08:03)
[2017-08-25] MEDS: traZODone 50 MG TABLET. PO SCH ×3 (08:03→18:21)
[2017-08-25] MEDS: QUEtiapine 50 MG TABLET. PO SCH ×3 (08:03→18:21)
[2017-08-25] MEDS: OXYBUTYNIN CHLORIDE 5 MG TABLET PO SCH ×3 (08:03→19:18)
[2017-08-25] MEDS: busPIRone 5 MG TABLET. PO SCH ×3 (08:03→18:21)
[2017-08-25] MEDS: DIVALPROEX 125 MG CAP.SPRINK PO SCH ×2 (08:04→19:17)
[2017-08-25] MEDS: POLYETHYLENE GLYCOL 3350 17 GM PACKET. PO SCH (08:04)
[2017-08-25 16:02] VITALS: BP 111/60
[2017-08-25] MEDS: PHENYTOIN SODIUM EXTENDED 100 MG CAPSULE PO SCH (19:17)
[2017-08-25] MEDS: ATORVASTATIN CALCIUM 10 MG TABLET. PO SCH (19:18)
[2017-08-25] MEDS: MIRTAZAPINE 7.5 MG TABLET. PO SCH (19:18)
[2017-08-25] MEDS: ACETAMINOPHEN 500 MG TABLET PO PRN (19:23)
--- NOTE | 2017-08-25 20:05 | PN ---
DATE: 08/24/2017 This late entry 08/24/2017 covers elements not covered in my initial note. SUBJECTIVE: The patient slept 6-1/4 hours previous evening. He was quite labile, anxious, irritable previous night, attention seeking, put himself on the floor and made himself throw up. Previous day he had been better. He napped post-lunch on 08/24/2017, then did better, but again by the evening when I met with him, he is quite labile, agitated, even though he was very appropriate with me during the individual visit. He is still obsessive, somatically preoccupied with GI symptoms, less so than before. No CV, , pulmonary, eye system symptoms on review. MENTAL STATUS EXAM: Oriented to himself and situation. Speech coherent, rapid, loud at times, less so than before. Abstraction fair, computation impaired, language function intact, attention span short. Mood and affect remain somewhat labile. LABORATORY DATA: Reviewed. IMPRESSION: Schizoaffective disorder, bipolar type, intellectual disability. PLAN: Continue current psychotropics. Check valproic acid level 08/26/2017, adjust to reach therapeutic level. MAN Suleman AYALA MD DR: ADALBERTO/garry JOB#: [id number] / [id number]
--- NOTE | 2017-08-25 20:52 | PDOC ---
Exam Note: Chad Note: Please also refer to the separate dictated note~for this date of service dictated separately.~Patient seen individually. Discussed the patient with Nursing staff reviewed the chart.~Reviewed interim history and current functioning. Reviewed vital signs,~Labs/ Radiology~and current medications noted below. Continue current treatment with the changes noted in the dictated addendum note Assessment: Vital Signs: Vital Signs Date Time Temp Pulse Resp B/P (MAP) Pulse Ox O2 Delivery O2 Flow Rate FiO2 08/25/17 16:02 97.8 76 18 111/60 (77) 100 Room Air I&O Intake and Output 08/25/17 07:00 Intake Total 1560 ml Balance 1560 ml Intake Oral 1560 ml # Voids 1 Current Medications: Meds: Current Medications Valproic Acid (Depakene) 500 mg STAT PO Last administered on 07/30/17at 21:21; Start 07/30/17 at 20:49; Stop 08/01/17 at 15:23; Status DC Divalproex Sodium (Depakote Er) 1,000 mg QHS PO ; Start 07/31/17 at 21:00; Stop 07/31/17 at 21:00; Status DC Divalproex Sodium (Depakote Er) 500 mg DAILY PO ; Start 07/31/17 at 09:00; Stop 07/31/17 at 09:00; Status DC Lorazepam (Ativan) 1 mg PRN BID PRN PO ANXIETY / AGITATION Last administered on 08/24/17at 19:20; Start 07/30/17 at 23:00 Olanzapine (ZyPREXA) 10 mg DAILY PO ; Start 07/31/17 at 09:00; Stop 07/31/17 at 09:00; Status DC Olanzapine (ZyPREXA) 5 mg DAILY@1400 PO ; Start 07/31/17 at 14:00; Stop at 14:00; Status DC Risperidone (RisperDAL CONSTA) 25 mg Q2WKS IM ; Start 08/13/17 at 09:00; Status UNV Clozapine (Clozaril) 200 mg DAILY PO Last administered on 08/25/17at 08:03; Start 07/31/17 at 09:00 Clozapine (Clozaril) 500 mg QHS PO Last administered on 08/25/17at 19:18; Start 07/31/17 at 21:00 Olanzapine (ZyPREXA) 20 mg QHS PO Last administered on 07/31/17 20:28; Start 07/31/17 at 21:00; Stop 08/01/17 at 09:51; Status DC Atorvastatin Calcium (Lipitor) 10 mg QHS PO ; Start 07/31/17 at 21:00; Stop 03/10 at 21:00; Status DC Phenytoin Sodium (Dilantin) 300 mg QHS PO Last administered on 08/25/17 19:17; Start 07/31/17 at 21:00 Non-Formulary Medication (Sodium Fluoride (Prevident 5000)) 1 carlee BID DT ; Start 07/31/17 at 09:00; Stop 07/31/17 at 09:00; Status DC Oxybutynin Chloride (Ditropan) 5 mg [id number] PO Last administered on 08/25/17 19: 18; Start 07/31/17 at 09:00 Quetiapine Fumarate (SEROquel) 100 mg BID PO Last administered on 08/08/17 20: 51; Start 07/31/17 at 09:00; Stop 08/09/17 at 18:03; Status DC Acetaminophen (Tylenol) 500 mg PRN Q4HRS PRN PO PAIN Last administered on 19:23; Start 07/31/17 at 07:15 Levothyroxine Sodium (Synthroid) 200 mcg DAILY06 PO Last administered on 05:15; Start 07/31/17 at 07:15 Fish Oil (Fish Oil) 1,000 mg DAILY PO Last administered on 07/31/17at 09:36; Start 07/31/17 at 09:00; Stop 08/01/17 at 09:51; Status DC Selenium Sulfide (Selsun) 1 carlee TWICEWEEKLY TP ; Start 07/31/17 at 07:30; Stop 07/31/17 at 14:29; Status DC Divalproex Sodium (Depakote Er) 1,000 mg QHS PO Last administered on 07/31/17 20:26; Start 07/31/17 at 21:00; Stop 08/01/17 at 18:29; Status DC Atorvastatin Calcium (Lipitor) 10 mg QHS PO Last administered on 08/25/17 19:18 ; Start 07/31/17 at 21:00 Divalproex Sodium (Depakote Er) 500 mg DAILY PO Last administered on 08/01/17 09:10; Start 07/31/17 at 09:00; Stop 08/01/17 at 09:51; Status DC Olanzapine (ZyPREXA) 10 mg DAILY PO Last administered on 08/01/17at 09:30; Start 07/31/17 at 09:00; Stop 08/01/17 at 09:51; Status DC Olanzapine (ZyPREXA) 5 mg DAILY@1400 PO Last administered on 07/31/17at 15:07; Start 07/31/17 at 14:00; Stop 08/01/17 at 09:51; Status DC Selenium Sulfide (Selsun) 1 carlee TWICEWEEKLY TP ; Start 07/31/17 at 14:29 Divalproex Sodium (Depakote Er) 750 mg DAILY PO ; Start 08/02/17 at 09:00; Stop 08/02/17 at 09:00; Status DC Divalproex Sodium (Depakote Sprinkles) 750 mg BID PO Last administered on 09:21; Start 08/01/17 at 21:00; Stop 08/04/17 at 14:28; Status DC Al Hydroxide/Mg Hydroxide (Mylanta Plus Xs) 30 ml PRN AFTMEAL PRN PO DYSPEPSIA Last administered on 08/24/17 18:45; Start 08/03/17 at 12:00 Magnesium Hydroxide (Milk Of Magnesia) 2,400 mg PRN DAILY PRN PO CONSTIPATION Last administered on 08/14/17 20:28; Start 08/03/17 at 17:00 Divalproex Sodium (Depakote Sprinkles) 1,000 mg BID PO Last administered on 07:51; Start 08/04/17 at 21:00; Stop 08/07/17 at 18:35; Status DC Polyethylene Glycol (miraLAX) 17 gm DAILY PO Last administered on 08/25/17 08: 04; Start 08/05/17 at 09:00 Trazodone HCl (Desyrel) 100 mg QHS PO Last administered on 08/18/17 19:34; Start 08/06/17 at 21:00; Stop 08/19/17 at 18:44; Status DC Trazodone HCl (Desyrel) 100 mg PRN QHS PRN PO INSOMNIA Last administered on at 21:05; Start 08/06/17 at 19:00; Stop 08/19/17 at 18:44; Status DC Divalproex Sodium (Depakote Sprinkles) 1,250 mg BID PO Last administered on at 20:51; Start 08/07/17 at 21:00; Stop 08/09/17 at 18:31; Status DC Quetiapine Fumarate (SEROquel) 50 mg BID PO Last administered on 08/19/17at 09: 19; Start 08/09/17 at 21:00; Stop 08/19/17 at 10:47; Status DC Divalproex Sodium (Depakote Sprinkles) 1,500 mg BID PO Last administered on at 08:25; Start 08/09/17 at 21:00; Stop 08/12/17 at 10:53; Status DC Trazodone HCl (Desyrel) 25 mg TID@0900,1300,1700 PO Last administered on at 17:10; Start 08/12/17 at 09:00; Stop 08/13/17 at 18:00; Status DC Divalproex Sodium (Depakote Sprinkles) 1,750 mg BID PO Last administered on at 09:32; Start 08/12/17 at 21:00; Stop 08/16/17 at 18:48; Status DC Trazodone HCl (Desyrel) 25 mg BID@1300,1700 PO Last administered on 08/25/17at 18 :21; Start 08/14/17 at 13:00 Trazodone HCl (Desyrel) 50 mg DAILY PO Last administered on 08/25/17at 08:03; Start 08/14/17 at 09:00 Trazodone HCl (Desyrel) 50 mg 1X ONCE PO Last administered on 08/13/17at 18:29 ; Start 08/13/17 at 18:30; Stop 08/13/17 at 18:31; Status DC Sertraline HCl (Zoloft) 25 mg DAILY PO Last administered on 08/17/17at 07:47; Start 08/15/17 at 09:00; Stop 08/17/17 at 11:00; Status DC Sertraline HCl (Zoloft) 50 mg DAILY PO Last administered on 08/25/17 08:03; Start 08/18/17 at 09:00 Divalproex Sodium (Depakote Sprinkles) 2,000 mg BID PO Last administered on 08/23 09:05; Start 08/16/17 at 21:00; Stop 08/23/17 at 18:02; Status DC Buspirone HCl (Buspar) 5 mg TID@0900,1300,1700 PO Last administered on 18:21; Start 08/17/17 at 09:00 Quetiapine Fumarate (SEROquel) 50 mg TID@0900,1300,1700 PO Last administered on 08/25/17 18:21; Start 08/19/17 at 13:00 Mirtazapine (Remeron) 7.5 mg QHS PO Last administered on 08/25/17 19:18; Start 08/19/17 at 21:00 Hydroxyzine HCl (Atarax) 50 mg PRN QHS PRN PO INSOMNIA, MAY REPEAT X1 Last administered on 08/24/17 21:02; Start 08/20/17 at 22:30 Divalproex Sodium (Depakote Sprinkles) 2,250 mg BID PO Last administered on 08/25 19:17; Start 08/23/17 at 21:00 Active Scripts Active Reported Ibuprofen 400 Mg Tablet 400 Mg PO PRN Q4HRS PRN MDD 1200mg/24hrs Lorazepam 2 Mg/1 Ml Vial 1 Mg IM BID PRN Abilify Maintena (Aripiprazole) 400 Mg Suser.vial 400 Mg IM Q4WK Next dose due 08/26/17 Paroxetine Hcl 20 Mg Tablet 10 Mg PO DAILY Abilify (Aripiprazole) 5 Mg Tablet 5 Mg PO DAILY Fenofibrate 160 Mg Tablet 160 Mg PO QHS Olanzapine 5 Mg Tablet 5 Mg PO DAILY@1400 5mg PO daily at 14:00 Methylphenidate Hcl 10 Mg Tablet 10 Mg PO BID@0900,1300 Seroquel (Quetiapine Fumarate) 100 Mg Tablet 100 Mg PO BID Prevident 5000 (Sodium Fluoride) 100 Ml Gel..ml. 1 Carlee DT BID Selenium Sulfide 180 Ml Shampoo 1 Carlee TP TWICE WEEKLY Lorazepam 1 Mg Tablet 1 Mg PO PRN BID PRN Acetaminophen 500 Mg Tablet 500 Mg PO PRN Q4HRS PRN Risperdal Consta (Risperidone Microspheres) 25 Mg/2 Ml Disp.syrin 25 Mg IM Q2WKS Phenytoin 125 Mg/5 Ml Oral.susp 300 Mg PO QHS Zyprexa (Olanzapine) 20 Mg Tablet 20 Mg PO QHS Atorvastatin Calcium 10 Mg Tablet 10 Mg PO QHS Zyprexa (Olanzapine) 5 Mg Tablet 5 Mg PO DAILY@1400 Clozapine 200 Mg Tablet 500 Mg PO QHS Clozapine 200 Mg Tablet 200 Mg PO DAILY Detrol La (Tolterodine Tartrate) 2 Mg Cap.er.24h 2 Mg PO BID Depakote Er (Divalproex Sodium) 500 Mg Tab.er.24h 500 Mg PO DAILY Depakote Er (Divalproex Sodium) 500 Mg Tab.er.24h 1,000 Mg PO QHS [place] 3 1,000 Mg Softgel ([place]-3 Fatty Acids/Fish Oil) 1 Each Capsule 1,000 Mg PO DAILY Thera-M Tablet (Multivits,Ca,Minerals/Iron/Fa) 1 Each Tablet 1 Tab PO DAILY Vitamin D3 (Cholecalciferol (Vitamin D3)) 1,000 Unit Tablet 2,000 Unit PO DAILY Olanzapine 10 Mg Tablet 10 Mg PO DAILY Miralax (Polyethylene Glycol 3350) 119 Gm Powder 17 Gm PO DAILY Levothyroxine Sodium 200 Mcg Tablet 200 Mcg PO DAILY06 Pantoprazole Sodium 40 Mg Tablet.dr 40 Mg PO DAILY I have reviewed the current psychotropics carefully including drug interactions. Risk benefit ratio favors no change other than as noted in my dictated progress note. Diagnosis: Problems: (1) Dementia in Alzheimer's disease with delusions (2) Impulse control disorder (3) Schizoaffective disorder, chronic condition with acute exacerbation (4) Borderline intellectual disability STEVEN AYALA MD Aug 25, 2017 20:52
[2017-08-25] MEDS: hydrOXYzine HCL 25 MG TABLET PO PRN (22:22)
[2017-08-26 05:40] VITALS: BP 146/69
[2017-08-26 05:49] VITALS: BP 114/61
[2017-08-26] MEDS: LEVOTHYROXINE 100 MCG TABLET PO SCH (05:59)
[2017-08-26 07:51] LABS: BASO # 0.1 x10^3/uL (0.0-0.2); BASO % 1 % (0-3); EOS # 0.2 x10^3/uL (0.0-0.7); EOS % 4 % (0-3); HEMATOCRIT 39.9 % (39.0-53.0); HEMOGLOBIN 13.3 g/dL (13.0-17.5); LYMPH # 2.3 x10^3/uL (1.0-4.8); LYMPH % 43 % (24-48); MEAN CORPUSCULAR HEMOGLOBIN 31 pg (25-35); MEAN CORPUSCULAR HGB CONC 33 g/dL (31-37); MEAN CORPUSCULAR VOLUME 93 fL (79-100); MONO # 0.5 x10^3/uL (0.0-1.1); MONO % 10 % (0-9); NEUT # 2.3 x10^3uL (1.8-7.7); NEUT % 43 % (31-73); PLATELET COUNT 173 x10^3/uL (140-400); WHITE BLOOD COUNT 5.4 x10^3/uL (4.0-11.0)
[2017-08-26 08:00] LABS: ALBUMIN 3.1 g/dL (3.4-5.0); ALBUMIN/GLOBULIN RATIO 0.9 (1.0-1.7); ALK PHOS 76 U/L (46-116); ALT (SGPT) 31 U/L (16-63); ANION GAP 9 (6-14); AST (SGOT) 19 U/L (15-37); BLOOD UREA NITROGEN 13 mg/dL (8-26); BUN/CREATININE RATIO 14 (6-20); CALCIUM 9.1 mg/dL (8.5-10.1); CARBON DIOXIDE 27 mmol/L (21-32); CHLORIDE 105 mmol/L (98-107); CREATININE 0.9 mg/dL (0.7-1.3); GFR 87.9; GLUCOSE 94 mg/dL (70-99); POTASSIUM 4.2 mmol/L (3.5-5.1); SODIUM 141 mmol/L (136-145); TOTAL BILIRUBIN 0.2 mg/dL (0.2-1.0); TOTAL PROTEIN 6.6 g/dL (6.4-8.2)
[2017-08-26 08:06] LABS: VAL ACID 48 mcg/mL (50-100)
[2017-08-26] MEDS: busPIRone 5 MG TABLET. PO SCH ×3 (09:04→17:28)
[2017-08-26] MEDS: cloZAPine 100 MG TABLET PO SCH ×2 (09:04→19:40)
[2017-08-26] MEDS: SERTRALINE 25 MG TABLET. PO SCH (09:04)
[2017-08-26] MEDS: POLYETHYLENE GLYCOL 3350 17 GM PACKET. PO SCH (09:04)
[2017-08-26] MEDS: QUEtiapine 50 MG TABLET. PO SCH ×3 (09:04→17:28)
[2017-08-26] MEDS: traZODone 50 MG TABLET. PO SCH ×3 (09:04→17:28)
[2017-08-26] MEDS: OXYBUTYNIN CHLORIDE 5 MG TABLET PO SCH ×3 (09:04→19:40)
[2017-08-26] MEDS: DIVALPROEX 125 MG CAP.SPRINK PO SCH ×2 (09:06→19:41)
[2017-08-26] MEDS: ACETAMINOPHEN 500 MG TABLET PO PRN (13:21)
[2017-08-26 16:21] VITALS: BP 139/71
[2017-08-26] MEDS: PHENYTOIN SODIUM EXTENDED 100 MG CAPSULE PO SCH (19:40)
[2017-08-26] MEDS: ATORVASTATIN CALCIUM 10 MG TABLET. PO SCH (19:40)
[2017-08-26] MEDS: MIRTAZAPINE 7.5 MG TABLET. PO SCH (19:40)
--- NOTE | 2017-08-26 20:50 | PDOC ---
Exam Note: Chad Note: Please also refer to the separate dictated note~for this date of service dictated separately.~Patient seen individually. Discussed the patient with Nursing staff reviewed the chart.~Reviewed interim history and current functioning. Reviewed vital signs,~Labs/ Radiology~and current medications noted below. Continue current treatment with the changes noted in the dictated addendum note Assessment: Vital Signs: Vital Signs Date Time Temp Pulse Resp B/P (MAP) Pulse Ox O2 Delivery O2 Flow Rate FiO2 08/26/17 16:21 97.4 77 16 139/71 (93) 99 08/25/17 16:02 Room Air I&O Intake and Output 08/26/17 07:00 Intake Total 1920 ml Balance 1920 ml Intake Oral 1920 ml # Voids 1 Labs: Laboratory Tests Test 08/26/17 07:38 White Blood Count 5.4 x10^3/uL (4.0-11.0) Red Blood Count 4.30 x10^6/uL (4.30-5.70) Hemoglobin 13.3 g/dL (13.0-17.5) Hematocrit 39.9 % (39.0-53.0) Mean Corpuscular Volume 93 fL (79-100) Mean Corpuscular Hemoglobin 31 pg (25-35) Mean Corpuscular Hemoglobin Concent 33 g/dL (31-37) Red Cell Distribution Width 13.0 % (11.5-14.5) Platelet Count 173 x10^3/uL (140-400) Neutrophils (%) (Auto) 43 % (31-73) Lymphocytes (%) (Auto) 43 % (24-48) Monocytes (%) (Auto) 10 % (0-9) H Eosinophils (%) (Auto) 4 % (0-3) H Basophils (%) (Auto) 1 % (0-3) Neutrophils # (Auto) 2.3 x10^3uL (1.8-7.7) Lymphocytes # (Auto) 2.3 x10^3/uL (1.0-4.8) Monocytes # (Auto) 0.5 x10^3/uL (0.0-1.1) Eosinophils # (Auto) 0.2 x10^3/uL (0.0-0.7) Basophils # (Auto) 0.1 x10^3/uL (0.0-0.2) Sodium Level 141 mmol/L (136-145) Potassium Level 4.2 mmol/L (3.5-5.1) Chloride Level 105 mmol/L (98-107) Carbon Dioxide Level 27 mmol/L (21-32) Anion Gap 9 (6-14) Blood Urea Nitrogen 13 mg/dL (8-26) Creatinine 0.9 mg/dL (0.7-1.3) Estimated GFR (Cockcroft-Gault) 87.9 BUN/Creatinine Ratio 14 (6-20) Glucose Level 94 mg/dL (70-99) Calcium Level 9.1 mg/dL (8.5-10.1) Total Bilirubin 0.2 mg/dL (0.2-1.0) Aspartate Amino Transferase (AST) 19 U/L (15-37) Alanine Aminotransferase (ALT) 31 U/L (16-63) Alkaline Phosphatase 76 U/L (46-116) Total Protein 6.6 g/dL (6.4-8.2) Albumin 3.1 g/dL (3.4-5.0) L Albumin/Globulin Ratio 0.9 (1.0-1.7) L Valproic Acid Level 48 mcg/mL (50-100) L Valproic Acid Last Dose Date 08/25/17 Valproic Acid Last Dose Time 2100 Current Medications: Meds: Current Medications Valproic Acid (Depakene) 500 mg STAT PO Last administered on 07/30/17at 21:21; Start 07/30/17 at 20:49; Stop 08/01/17 at 15:23; Status DC Divalproex Sodium (Depakote Er) 1,000 mg QHS PO ; Start 07/31/17 at 21:00; Stop 07/31/17 at 21:00; Status DC Divalproex Sodium (Depakote Er) 500 mg DAILY PO ; Start 07/31/17 at 09:00; Stop 07/31/17 at 09:00; Status DC Lorazepam (Ativan) 1 mg PRN BID PRN PO ANXIETY / AGITATION Last administered on 08/24/17at 19:20; Start 07/30/17 at 23:00 Olanzapine (ZyPREXA) 10 mg DAILY PO ; Start 07/31/17 at 09:00; Stop 07/31/17 at 09:00; Status DC Olanzapine (ZyPREXA) 5 mg DAILY@1400 PO ; Start 07/31/17 at 14:00; Stop at 14:00; Status DC Risperidone (RisperDAL CONSTA) 25 mg Q2WKS IM ; Start 08/13/17 at 09:00; Status UNV Clozapine (Clozaril) 200 mg DAILY PO Last administered on 08/26/17 09:04; Start 07/31/17 at 09:00 Clozapine (Clozaril) 500 mg QHS PO Last administered on 08/26/17 19:40; Start 07/31/17 at 21:00 Olanzapine (ZyPREXA) 20 mg QHS PO Last administered on 07/31/17 20:28; Start 07/31/17 at 21:00; Stop 08/01/17 at 09:51; Status DC Atorvastatin Calcium (Lipitor) 10 mg QHS PO ; Start 07/31/17 at 21:00; Stop 03/10 at 21:00; Status DC Phenytoin Sodium (Dilantin) 300 mg QHS PO Last administered on 08/26/17 19:40; Start 07/31/17 at 21:00 Non-Formulary Medication (Sodium Fluoride (Prevident 5000)) 1 carlee BID DT ; Start 07/31/17 at 09:00; Stop 07/31/17 at 09:00; Status DC Oxybutynin Chloride (Ditropan) 5 mg [id number] PO Last administered on 08/26/17 19: 40; Start 07/31/17 at 09:00 Quetiapine Fumarate (SEROquel) 100 mg BID PO Last administered on 08/08/17 20: 51; Start 07/31/17 at 09:00; Stop 08/09/17 at 18:03; Status DC Acetaminophen (Tylenol) 500 mg PRN Q4HRS PRN PO PAIN Last administered on 13:21; Start 07/31/17 at 07:15 Levothyroxine Sodium (Synthroid) 200 mcg DAILY06 PO Last administered on 05:59; Start 07/31/17 at 07:15 Fish Oil (Fish Oil) 1,000 mg DAILY PO Last administered on 07/31/17at 09:36; Start 07/31/17 at 09:00; Stop 08/01/17 at 09:51; Status DC Selenium Sulfide (Selsun) 1 carlee TWICEWEEKLY TP ; Start 07/31/17 at 07:30; Stop 07/31/17 at 14:29; Status DC Divalproex Sodium (Depakote Er) 1,000 mg QHS PO Last administered on 07/31/17at 20:26; Start 07/31/17 at 21:00; Stop 08/01/17 at 18:29; Status DC Atorvastatin Calcium (Lipitor) 10 mg QHS PO Last administered on 08/26/17at 19:40 ; Start 07/31/17 at 21:00 Divalproex Sodium (Depakote Er) 500 mg DAILY PO Last administered on 08/01/17at 09:10; Start 07/31/17 at 09:00; Stop 08/01/17 at 09:51; Status DC Olanzapine (ZyPREXA) 10 mg DAILY PO Last administered on 08/01/17at 09:30; Start 07/31/17 at 09:00; Stop 08/01/17 at 09:51; Status DC Olanzapine (ZyPREXA) 5 mg DAILY@1400 PO Last administered on 07/31/17at 15:07; Start 07/31/17 at 14:00; Stop 08/01/17 at 09:51; Status DC Selenium Sulfide (Selsun) 1 carlee TWICEWEEKLY TP ; Start 07/31/17 at 14:29 Divalproex Sodium (Depakote Er) 750 mg DAILY PO ; Start 08/02/17 at 09:00; Stop 08/02/17 at 09:00; Status DC Divalproex Sodium (Depakote Sprinkles) 750 mg BID PO Last administered on at 09:21; Start 08/01/17 at 21:00; Stop 08/04/17 at 14:28; Status DC Al Hydroxide/Mg Hydroxide (Mylanta Plus Xs) 30 ml PRN AFTMEAL PRN PO DYSPEPSIA Last administered on 08/24/17at 18:45; Start 08/03/17 at 12:00 Magnesium Hydroxide (Milk Of Magnesia) 2,400 mg PRN DAILY PRN PO CONSTIPATION Last administered on 08/14/17at 20:28; Start 08/03/17 at 17:00 Divalproex Sodium (Depakote Sprinkles) 1,000 mg BID PO Last administered on at 07:51; Start 08/04/17 at 21:00; Stop 08/07/17 at 18:35; Status DC Polyethylene Glycol (miraLAX) 17 gm DAILY PO Last administered on 08/26/17at 09: 04; Start 08/05/17 at 09:00 Trazodone HCl (Desyrel) 100 mg QHS PO Last administered on 08/18/17at 19:34; Start 08/06/17 at 21:00; Stop 08/19/17 at 18:44; Status DC Trazodone HCl (Desyrel) 100 mg PRN QHS PRN PO INSOMNIA Last administered on at 21:05; Start 08/06/17 at 19:00; Stop 08/19/17 at 18:44; Status DC Divalproex Sodium (Depakote Sprinkles) 1,250 mg BID PO Last administered on at 20:51; Start 08/07/17 at 21:00; Stop 08/09/17 at 18:31; Status DC Quetiapine Fumarate (SEROquel) 50 mg BID PO Last administered on 08/19/17at 09: 19; Start 08/09/17 at 21:00; Stop 08/19/17 at 10:47; Status DC Divalproex Sodium (Depakote Sprinkles) 1,500 mg BID PO Last administered on at 08:25; Start 08/09/17 at 21:00; Stop 08/12/17 at 10:53; Status DC Trazodone HCl (Desyrel) 25 mg TID@0900,1300,1700 PO Last administered on at 17:10; Start 08/12/17 at 09:00; Stop 08/13/17 at 18:00; Status DC Divalproex Sodium (Depakote Sprinkles) 1,750 mg BID PO Last administered on at 09:32; Start 08/12/17 at 21:00; Stop 08/16/17 at 18:48; Status DC Trazodone HCl (Desyrel) 25 mg BID@1300,1700 PO Last administered on 08/26/17 17 :28; Start 08/14/17 at 13:00 Trazodone HCl (Desyrel) 50 mg DAILY PO Last administered on 08/26/17 09:04; Start 08/14/17 at 09:00 Trazodone HCl (Desyrel) 50 mg 1X ONCE PO Last administered on 08/13/17 18:29 ; Start 08/13/17 at 18:30; Stop 08/13/17 at 18:31; Status DC Sertraline HCl (Zoloft) 25 mg DAILY PO Last administered on 08/17/17 07:47; Start 08/15/17 at 09:00; Stop 08/17/17 at 11:00; Status DC Sertraline HCl (Zoloft) 50 mg DAILY PO Last administered on 08/26/17 09:04; Start 08/18/17 at 09:00 Divalproex Sodium (Depakote Sprinkles) 2,000 mg BID PO Last administered on 08/23 09:05; Start 08/16/17 at 21:00; Stop 08/23/17 at 18:02; Status DC Buspirone HCl (Buspar) 5 mg TID@0900,1300,1700 PO Last administered on 17:28; Start 08/17/17 at 09:00 Quetiapine Fumarate (SEROquel) 50 mg TID@0900,1300,1700 PO Last administered on 08/26/17 17:28; Start 08/19/17 at 13:00 Mirtazapine (Remeron) 7.5 mg QHS PO Last administered on 08/26/17 19:40; Start 08/19/17 at 21:00 Hydroxyzine HCl (Atarax) 50 mg PRN QHS PRN PO INSOMNIA, MAY REPEAT X1 Last administered on 08/25/17 22:22; Start 08/20/17 at 22:30 Divalproex Sodium (Depakote Sprinkles) 2,250 mg BID PO Last administered on 08/26 09:06; Start 08/23/17 at 21:00; Stop 08/26/17 at 10:43; Status DC Divalproex Sodium (Depakote Sprinkles) 2,500 mg BID PO Last administered on 08/26at 19:41; Start 08/26/17 at 21:00 Active Scripts Active Reported Ibuprofen 400 Mg Tablet 400 Mg PO PRN Q4HRS PRN MDD 1200mg/24hrs Lorazepam 2 Mg/1 Ml Vial 1 Mg IM BID PRN Abilify Maintena (Aripiprazole) 400 Mg Suser.vial 400 Mg IM Q4WK Next dose due 08/26/17 Paroxetine Hcl 20 Mg Tablet 10 Mg PO DAILY Abilify (Aripiprazole) 5 Mg Tablet 5 Mg PO DAILY Fenofibrate 160 Mg Tablet 160 Mg PO QHS Olanzapine 5 Mg Tablet 5 Mg PO DAILY@1400 5mg PO daily at 14:00 Methylphenidate Hcl 10 Mg Tablet 10 Mg PO BID@0900,1300 Seroquel (Quetiapine Fumarate) 100 Mg Tablet 100 Mg PO BID Prevident 5000 (Sodium Fluoride) 100 Ml Gel..ml. 1 Carlee DT BID Selenium Sulfide 180 Ml Shampoo 1 Carlee TP TWICE WEEKLY Lorazepam 1 Mg Tablet 1 Mg PO PRN BID PRN Acetaminophen 500 Mg Tablet 500 Mg PO PRN Q4HRS PRN Risperdal Consta (Risperidone Microspheres) 25 Mg/2 Ml Disp.syrin 25 Mg IM Q2WKS Phenytoin 125 Mg/5 Ml Oral.susp 300 Mg PO QHS Zyprexa (Olanzapine) 20 Mg Tablet 20 Mg PO QHS Atorvastatin Calcium 10 Mg Tablet 10 Mg PO QHS Zyprexa (Olanzapine) 5 Mg Tablet 5 Mg PO DAILY@1400 Clozapine 200 Mg Tablet 500 Mg PO QHS Clozapine 200 Mg Tablet 200 Mg PO DAILY Detrol La (Tolterodine Tartrate) 2 Mg Cap.er.24h 2 Mg PO BID Depakote Er (Divalproex Sodium) 500 Mg Tab.er.24h 500 Mg PO DAILY Depakote Er (Divalproex Sodium) 500 Mg Tab.er.24h 1,000 Mg PO QHS [place] 3 1,000 Mg Softgel ([place]-3 Fatty Acids/Fish Oil) 1 Each Capsule 1,000 Mg PO DAILY Thera-M Tablet (Multivits,Ca,Minerals/Iron/Fa) 1 Each Tablet 1 Tab PO DAILY Vitamin D3 (Cholecalciferol (Vitamin D3)) 1,000 Unit Tablet 2,000 Unit PO DAILY Olanzapine 10 Mg Tablet 10 Mg PO DAILY Miralax (Polyethylene Glycol 3350) 119 Gm Powder 17 Gm PO DAILY Levothyroxine Sodium 200 Mcg Tablet 200 Mcg PO DAILY06 Pantoprazole Sodium 40 Mg Tablet. 40 Mg PO DAILY I have reviewed the current psychotropics carefully including drug interactions. Risk benefit ratio favors no change other than as noted in my dictated progress note. Diagnosis: Problems: (1) Dementia in Alzheimer's disease with delusions (2) Impulse control disorder (3) Schizoaffective disorder, chronic condition with acute exacerbation (4) Borderline intellectual disability STEVEN AYALA MD Aug 26, 2017 20:50
[2017-08-27] MEDS: LEVOTHYROXINE 100 MCG TABLET PO SCH (06:14)
[2017-08-27 06:15] VITALS: BP 116/70
[2017-08-27] MEDS: POLYETHYLENE GLYCOL 3350 17 GM PACKET. PO SCH (09:24)
[2017-08-27] MEDS: cloZAPine 100 MG TABLET PO SCH ×2 (09:24→20:28)
[2017-08-27] MEDS: traZODone 50 MG TABLET. PO SCH ×3 (09:24→17:28)
[2017-08-27] MEDS: OXYBUTYNIN CHLORIDE 5 MG TABLET PO SCH ×3 (09:24→20:28)
[2017-08-27] MEDS: QUEtiapine 50 MG TABLET. PO SCH ×3 (09:24→17:28)
[2017-08-27] MEDS: SERTRALINE 25 MG TABLET. PO SCH (09:24)
[2017-08-27] MEDS: DIVALPROEX 125 MG CAP.SPRINK PO SCH ×2 (09:24→20:28)
[2017-08-27] MEDS: busPIRone 5 MG TABLET. PO SCH ×3 (09:24→17:28)
[2017-08-27 15:50] VITALS: BP 130/71
[2017-08-27] MEDS ORDERED: IOHEXOL 300 MG/ML 75 ML VIAL. IV ONE (19:00)
[2017-08-27] MEDS: MIRTAZAPINE 7.5 MG TABLET. PO SCH (20:28)
[2017-08-27] MEDS: ATORVASTATIN CALCIUM 10 MG TABLET. PO SCH (20:28)
[2017-08-27] MEDS: PHENYTOIN SODIUM EXTENDED 100 MG CAPSULE PO SCH (20:28)
--- NOTE | 2017-08-27 21:42 | PN ---
DATE: 08/25/2017 This late entry 08/25/2017 covers elements not covered in my initial note 08/25/2017. Met with the patient in the evening of 08/25/2017. During the day, the patient does better, but by the evening, he is once again extremely obsessive, somatically preoccupied much of the time with his bowel. Sundowns around 5:30 p.m. and the somatic symptoms worsen significantly as I met with him evening of 08/25/2017. He has had 2 PRNs the previous night 7:00 p.m., 9:00 p.m. He has twitching of his head and states someone hitting him, moves it from side to side. When specifically questioned, he denies these hallucinations. I addressed this with him at some length individually. States the voices are in his head, not outside, and hallucinations as perceived on the outside are more reflection of his obsessive thought processes. REVIEW OF SYSTEMS: No CV, , pulmonary, eye, ENT system symptoms on review. MENTAL STATUS EXAM: Oriented to himself and situation. Speech can be loud at times. Abstraction fair, computation impaired, language function intact, attention span short. Mood and affect remains somewhat labile. LABORATORY DATA: Reviewed. IMPRESSION: Schizoaffective disorder, bipolar type. Intellectual disability. Rest unchanged. PLAN: Continue psychotropics mentioned in my initial note. We will be checking valproic acid level on 08/26/2017 and adjust the Depakote thereafter. Continue Clozaril. MAN Suleman AYALA MD DR: ADALBERTO/garry JOB#: [id number] / [id number]
--- NOTE | 2017-08-27 23:11 | PN ---
DATE: 08/26/2017 PSYCHIATRIC PROGRESS NOTE This late entry of 08/26/2017 covers elements not covered in my initial note for 08/26/2017. I met with the patient in the evening of 08/26/2017, staffed at treatment team meeting with the entire team morning of 08/26/2017. SUBJECTIVE: He has done better in the day, starting 5:00 p.m. he sundowns and then gets to the nursing staff window repetitive, somatically preoccupied, always complaining that is cold. Nursing staff have adjusted the temperature of his room. REVIEW OF SYSTEMS: No CV, , pulmonary, eye system symptoms on review other than the GI symptoms. MENTAL STATUS EXAM: Oriented to himself and situation. Speech coherent, less pressured. Abstraction fair, computation impaired, language function intact, attention span short. Mood and affect remains labile. LABORATORY DATA: Reviewed. IMPRESSION: Schizoaffective disorder, bipolar type, mixed with psychotic features. Rest unchanged. Intellectual disability. PLAN: Valproic acid level is 48 on 08/26/2017. We will increase Depakote from 2250 mg b.i.d. to 2500 mg b.i.d. Check CBC, CMP, valproic acid level in 3 days. Continue rest unchanged including Clozaril. STEVEN AYALA MD DR: ADALBERTO/garry JOB#: [id number] / [id number]
--- NOTE | 2017-08-27 23:12 | PDOC ---
Exam Note: Chad Note: Please also refer to the separate dictated note~for this date of service dictated separately.~Patient seen individually. Discussed the patient with Nursing staff reviewed the chart.~Reviewed interim history and current functioning. Reviewed vital signs,~Labs/ Radiology~and current medications noted below. Continue current treatment with the changes noted in the dictated addendum note Assessment: Vital Signs: Vital Signs Date Time Temp Pulse Resp B/P (MAP) Pulse Ox O2 Delivery O2 Flow Rate FiO2 08/27/17 15:50 98.1 82 19 130/71 (90) 99 08/25/17 16:02 Room Air I&O Intake and Output 08/27/17 07:00 Intake Total 1800 ml Balance 1800 ml Intake Oral 1800 ml Current Medications: Meds: Current Medications Valproic Acid (Depakene) 500 mg STAT PO Last administered on 07/30/17at 21:21; Start 07/30/17 at 20:49; Stop 08/01/17 at 15:23; Status DC Divalproex Sodium (Depakote Er) 1,000 mg QHS PO ; Start 07/31/17 at 21:00; Stop 07/31/17 at 21:00; Status DC Divalproex Sodium (Depakote Er) 500 mg DAILY PO ; Start 07/31/17 at 09:00; Stop 07/31/17 at 09:00; Status DC Lorazepam (Ativan) 1 mg PRN BID PRN PO ANXIETY / AGITATION Last administered on 08/24/17at 19:20; Start 07/30/17 at 23:00 Olanzapine (ZyPREXA) 10 mg DAILY PO ; Start 07/31/17 at 09:00; Stop 07/31/17 at 09:00; Status DC Olanzapine (ZyPREXA) 5 mg DAILY@1400 PO ; Start 07/31/17 at 14:00; Stop at 14:00; Status DC Risperidone (RisperDAL CONSTA) 25 mg Q2WKS IM ; Start 08/13/17 at 09:00; Status UNV Clozapine (Clozaril) 200 mg DAILY PO Last administered on 08/27/17at 09:24; Start 07/31/17 at 09:00 Clozapine (Clozaril) 500 mg QHS PO Last administered on 08/27/17at 20:28; Start 07/31/17 at 21:00 Olanzapine (ZyPREXA) 20 mg QHS PO Last administered on 07/31/17 20:28; Start 07/31/17 at 21:00; Stop 08/01/17 at 09:51; Status DC Atorvastatin Calcium (Lipitor) 10 mg QHS PO ; Start 07/31/17 at 21:00; Stop 03/10 at 21:00; Status DC Phenytoin Sodium (Dilantin) 300 mg QHS PO Last administered on 08/27/17 20:28; Start 07/31/17 at 21:00 Non-Formulary Medication (Sodium Fluoride (Prevident 5000)) 1 carlee BID DT ; Start 07/31/17 at 09:00; Stop 07/31/17 at 09:00; Status DC Oxybutynin Chloride (Ditropan) 5 mg [id number] PO Last administered on 08/27/17 20: 28; Start 07/31/17 at 09:00 Quetiapine Fumarate (SEROquel) 100 mg BID PO Last administered on 08/08/17 20: 51; Start 07/31/17 at 09:00; Stop 08/09/17 at 18:03; Status DC Acetaminophen (Tylenol) 500 mg PRN Q4HRS PRN PO PAIN Last administered on 13:21; Start 07/31/17 at 07:15 Levothyroxine Sodium (Synthroid) 200 mcg DAILY06 PO Last administered on 06:14; Start 07/31/17 at 07:15 Fish Oil (Fish Oil) 1,000 mg DAILY PO Last administered on 07/31/17at 09:36; Start 07/31/17 at 09:00; Stop 08/01/17 at 09:51; Status DC Selenium Sulfide (Selsun) 1 carlee TWICEWEEKLY TP ; Start 07/31/17 at 07:30; Stop 07/31/17 at 14:29; Status DC Divalproex Sodium (Depakote Er) 1,000 mg QHS PO Last administered on 07/31/17 20:26; Start 07/31/17 at 21:00; Stop 08/01/17 at 18:29; Status DC Atorvastatin Calcium (Lipitor) 10 mg QHS PO Last administered on 08/27/17at 20:28 ; Start 07/31/17 at 21:00 Divalproex Sodium (Depakote Er) 500 mg DAILY PO Last administered on 08/01/17 09:10; Start 07/31/17 at 09:00; Stop 08/01/17 at 09:51; Status DC Olanzapine (ZyPREXA) 10 mg DAILY PO Last administered on 08/01/17at 09:30; Start 07/31/17 at 09:00; Stop 08/01/17 at 09:51; Status DC Olanzapine (ZyPREXA) 5 mg DAILY@1400 PO Last administered on 07/31/17at 15:07; Start 07/31/17 at 14:00; Stop 08/01/17 at 09:51; Status DC Selenium Sulfide (Selsun) 1 carlee TWICEWEEKLY TP ; Start 07/31/17 at 14:29 Divalproex Sodium (Depakote Er) 750 mg DAILY PO ; Start 08/02/17 at 09:00; Stop 08/02/17 at 09:00; Status DC Divalproex Sodium (Depakote Sprinkles) 750 mg BID PO Last administered on 09:21; Start 08/01/17 at 21:00; Stop 08/04/17 at 14:28; Status DC Al Hydroxide/Mg Hydroxide (Mylanta Plus Xs) 30 ml PRN AFTMEAL PRN PO DYSPEPSIA Last administered on 08/24/17 18:45; Start 08/03/17 at 12:00 Magnesium Hydroxide (Milk Of Magnesia) 2,400 mg PRN DAILY PRN PO CONSTIPATION Last administered on 08/14/17 20:28; Start 08/03/17 at 17:00 Divalproex Sodium (Depakote Sprinkles) 1,000 mg BID PO Last administered on 07:51; Start 08/04/17 at 21:00; Stop 08/07/17 at 18:35; Status DC Polyethylene Glycol (miraLAX) 17 gm DAILY PO Last administered on 08/27/17 09: 24; Start 08/05/17 at 09:00 Trazodone HCl (Desyrel) 100 mg QHS PO Last administered on 08/18/17at 19:34; Start 08/06/17 at 21:00; Stop 08/19/17 at 18:44; Status DC Trazodone HCl (Desyrel) 100 mg PRN QHS PRN PO INSOMNIA Last administered on at 21:05; Start 08/06/17 at 19:00; Stop 08/19/17 at 18:44; Status DC Divalproex Sodium (Depakote Sprinkles) 1,250 mg BID PO Last administered on at 20:51; Start 08/07/17 at 21:00; Stop 08/09/17 at 18:31; Status DC Quetiapine Fumarate (SEROquel) 50 mg BID PO Last administered on 08/19/17at 09: 19; Start 08/09/17 at 21:00; Stop 08/19/17 at 10:47; Status DC Divalproex Sodium (Depakote Sprinkles) 1,500 mg BID PO Last administered on at 08:25; Start 08/09/17 at 21:00; Stop 08/12/17 at 10:53; Status DC Trazodone HCl (Desyrel) 25 mg TID@0900,1300,1700 PO Last administered on at 17:10; Start 08/12/17 at 09:00; Stop 08/13/17 at 18:00; Status DC Divalproex Sodium (Depakote Sprinkles) 1,750 mg BID PO Last administered on at 09:32; Start 08/12/17 at 21:00; Stop 08/16/17 at 18:48; Status DC Trazodone HCl (Desyrel) 25 mg BID@1300,1700 PO Last administered on 08/27/17 17 :28; Start 08/14/17 at 13:00 Trazodone HCl (Desyrel) 50 mg DAILY PO Last administered on 08/27/17 09:24; Start 08/14/17 at 09:00 Trazodone HCl (Desyrel) 50 mg 1X ONCE PO Last administered on 08/13/17at 18:29 ; Start 08/13/17 at 18:30; Stop 08/13/17 at 18:31; Status DC Sertraline HCl (Zoloft) 25 mg DAILY PO Last administered on 08/17/17 07:47; Start 08/15/17 at 09:00; Stop 08/17/17 at 11:00; Status DC Sertraline HCl (Zoloft) 50 mg DAILY PO Last administered on 08/27/17 09:24; Start 08/18/17 at 09:00 Divalproex Sodium (Depakote Sprinkles) 2,000 mg BID PO Last administered on 08/23 09:05; Start 08/16/17 at 21:00; Stop 08/23/17 at 18:02; Status DC Buspirone HCl (Buspar) 5 mg TID@0900,1300,1700 PO Last administered on 17:28; Start 08/17/17 at 09:00 Quetiapine Fumarate (SEROquel) 50 mg TID@0900,1300,1700 PO Last administered on 08/27/17 17:28; Start 08/19/17 at 13:00 Mirtazapine (Remeron) 7.5 mg QHS PO Last administered on 08/27/17 20:28; Start 08/19/17 at 21:00 Hydroxyzine HCl (Atarax) 50 mg PRN QHS PRN PO INSOMNIA, MAY REPEAT X1 Last administered on 08/25/17 22:22; Start 08/20/17 at 22:30 Divalproex Sodium (Depakote Sprinkles) 2,250 mg BID PO Last administered on 08/26 09:06; Start 08/23/17 at 21:00; Stop 08/26/17 at 10:43; Status DC Divalproex Sodium (Depakote Sprinkles) 2,500 mg BID PO Last administered on 08/27 20:28; Start 08/26/17 at 21:00 Iohexol (Omnipaque 300 Mg/ml) 75 ml 1X ONCE IV Last administered on 08/27/17 22:59; Start 08/27/17 at 19:00; Stop 08/27/17 at 19:04; Status DC Active Scripts Active Reported Ibuprofen 400 Mg Tablet 400 Mg PO PRN Q4HRS PRN MDD 1200mg/24hrs Lorazepam 2 Mg/1 Ml Vial 1 Mg IM BID PRN Abilify Maintena (Aripiprazole) 400 Mg Suser.vial 400 Mg IM Q4WK Next dose due 08/26/17 Paroxetine Hcl 20 Mg Tablet 10 Mg PO DAILY Abilify (Aripiprazole) 5 Mg Tablet 5 Mg PO DAILY Fenofibrate 160 Mg Tablet 160 Mg PO QHS Olanzapine 5 Mg Tablet 5 Mg PO DAILY@1400 5mg PO daily at 14:00 Methylphenidate Hcl 10 Mg Tablet 10 Mg PO BID@0900,1300 Seroquel (Quetiapine Fumarate) 100 Mg Tablet 100 Mg PO BID Prevident 5000 (Sodium Fluoride) 100 Ml Gel..ml. 1 Carlee DT BID Selenium Sulfide 180 Ml Shampoo 1 Carlee TP TWICE WEEKLY Lorazepam 1 Mg Tablet 1 Mg PO PRN BID PRN Acetaminophen 500 Mg Tablet 500 Mg PO PRN Q4HRS PRN Risperdal Consta (Risperidone Microspheres) 25 Mg/2 Ml Disp.syrin 25 Mg IM Q2WKS Phenytoin 125 Mg/5 Ml Oral.susp 300 Mg PO QHS Zyprexa (Olanzapine) 20 Mg Tablet 20 Mg PO QHS Atorvastatin Calcium 10 Mg Tablet 10 Mg PO QHS Zyprexa (Olanzapine) 5 Mg Tablet 5 Mg PO DAILY@1400 Clozapine 200 Mg Tablet 500 Mg PO QHS Clozapine 200 Mg Tablet 200 Mg PO DAILY Detrol La (Tolterodine Tartrate) 2 Mg Cap.er.24h 2 Mg PO BID Depakote Er (Divalproex Sodium) 500 Mg Tab.er.24h 500 Mg PO DAILY Depakote Er (Divalproex Sodium) 500 Mg Tab.er.24h 1,000 Mg PO QHS [place] 3 1,000 Mg Softgel ([place]-3 Fatty Acids/Fish Oil) 1 Each Capsule 1,000 Mg PO DAILY Thera-M Tablet (Multivits,Ca,Minerals/Iron/Fa) 1 Each Tablet 1 Tab PO DAILY Vitamin D3 (Cholecalciferol (Vitamin D3)) 1,000 Unit Tablet 2,000 Unit PO DAILY Olanzapine 10 Mg Tablet 10 Mg PO DAILY Miralax (Polyethylene Glycol 3350) 119 Gm Powder 17 Gm PO DAILY Levothyroxine Sodium 200 Mcg Tablet 200 Mcg PO DAILY06 Pantoprazole Sodium 40 Mg Tablet.dr 40 Mg PO DAILY I have reviewed the current psychotropics carefully including drug interactions. Risk benefit ratio favors no change other than as noted in my dictated progress note. Diagnosis: Problems: (1) Dementia in Alzheimer's disease with delusions (2) Impulse control disorder (3) Schizoaffective disorder, chronic condition with acute exacerbation (4) Borderline intellectual disability STEVEN AYALA MD Aug 27, 2017 23:12
[2017-08-27] MEDS: LORazepam 1 MG TABLET PO PRN (23:31)
--- NOTE | 2017-08-28 05:30 | RAD ---
CT abdomen and pelvis with contrast. HISTORY: Nausea and vomiting CT scan of the abdomen and pelvis was done using 75 Omnipaque 300 contrast. Lung bases are clear except for mild dependent atelectasis. There is respiratory motion artifact. There is no pleural effusion. A liver lesion is not identified. There patient's had a cholecystectomy. Spleen and adrenal glands are normal. There is respiratory motion artifact. There is no mass or hydronephrosis in the kidneys. Bladder is mildly distended. A ureteral calculus is not identified. Pancreas was normal. There is no bowel obstruction or ascites. Appendix is normal. There is diverticulosis of the colon without an acute diverticulitis. There is an old mild fractured spear aspect of L4 with a bone fragment extending into the canal with spinal stenosis. IMPRESSION: 1. Respiratory motion artifact. 2. Mild atelectasis right lung base. 3. No abdominal or pelvic mass noted. 4. No bowel obstruction evident. PQRS Compliance Statement: One or more of the following individualized dose reduction techniques were utilized for this examination: 1. Automated exposure control 2. Adjustment of the mA and/or kV according to patient size 3. Use of iterative reconstruction technique Electronically signed by: Christopher Carrillo MD (08/28/2017 5:27 AM) [facility]
[2017-08-28 05:46] VITALS: BP 103/61
[2017-08-28] MEDS: LEVOTHYROXINE 100 MCG TABLET PO SCH (06:13)
[2017-08-28] MEDS: DIVALPROEX 125 MG CAP.SPRINK PO SCH ×2 (07:49→19:42)
[2017-08-28] MEDS: QUEtiapine 50 MG TABLET. PO SCH ×3 (07:49→17:26)
[2017-08-28] MEDS: OXYBUTYNIN CHLORIDE 5 MG TABLET PO SCH ×3 (07:49→19:41)
[2017-08-28] MEDS: busPIRone 5 MG TABLET. PO SCH ×3 (07:49→17:26)
[2017-08-28] MEDS: SERTRALINE 25 MG TABLET. PO SCH (07:49)
[2017-08-28] MEDS: cloZAPine 100 MG TABLET PO SCH ×2 (07:49→19:42)
[2017-08-28] MEDS: traZODone 50 MG TABLET. PO SCH ×3 (07:50→17:26)
[2017-08-28] MEDS: POLYETHYLENE GLYCOL 3350 17 GM PACKET. PO SCH (07:50)
[2017-08-28 15:58] VITALS: BP 120/51
[2017-08-28] MEDS: LORazepam 1 MG TABLET PO PRN (16:22)
[2017-08-28] MEDS: MAG HYDROX/AL HYDROX/SIMETH 30 ML ORAL.SUSP PO PRN (16:22)
[2017-08-28] MEDS: PHENYTOIN SODIUM EXTENDED 100 MG CAPSULE PO SCH (19:41)
[2017-08-28] MEDS: ATORVASTATIN CALCIUM 10 MG TABLET. PO SCH (19:41)
[2017-08-28] MEDS: MIRTAZAPINE 7.5 MG TABLET. PO SCH (19:41)
--- NOTE | 2017-08-28 22:45 | PDOC ---
Exam Note: Chad Note: Please also refer to the separate dictated note~for this date of service dictated separately.~Patient seen individually. Discussed the patient with Nursing staff reviewed the chart.~Reviewed interim history and current functioning. Reviewed vital signs,~Labs/ Radiology~and current medications noted below. Continue current treatment with the changes noted in the dictated addendum note Assessment: Vital Signs: Vital Signs Date Time Temp Pulse Resp B/P (MAP) Pulse Ox O2 Delivery O2 Flow Rate FiO2 08/28/17 15:58 97.7 88 18 120/51 (74) 99 08/25/17 16:02 Room Air I&O Intake and Output 08/28/17 07:00 Intake Total 1440 ml Balance 1440 ml Intake Oral 1440 ml Current Medications: Meds: Current Medications Valproic Acid (Depakene) 500 mg STAT PO Last administered on 07/30/17at 21:21; Start 07/30/17 at 20:49; Stop 08/01/17 at 15:23; Status DC Divalproex Sodium (Depakote Er) 1,000 mg QHS PO ; Start 07/31/17 at 21:00; Stop 07/31/17 at 21:00; Status DC Divalproex Sodium (Depakote Er) 500 mg DAILY PO ; Start 07/31/17 at 09:00; Stop 07/31/17 at 09:00; Status DC Lorazepam (Ativan) 1 mg PRN BID PRN PO ANXIETY / AGITATION Last administered on 08/28/17at 16:22; Start 07/30/17 at 23:00 Olanzapine (ZyPREXA) 10 mg DAILY PO ; Start 07/31/17 at 09:00; Stop 07/31/17 at 09:00; Status DC Olanzapine (ZyPREXA) 5 mg DAILY@1400 PO ; Start 07/31/17 at 14:00; Stop at 14:00; Status DC Risperidone (RisperDAL CONSTA) 25 mg Q2WKS IM ; Start 08/13/17 at 09:00; Status UNV Clozapine (Clozaril) 200 mg DAILY PO Last administered on 08/28/17at 07:49; Start 07/31/17 at 09:00 Clozapine (Clozaril) 500 mg QHS PO Last administered on 08/28/17at 19:42; Start 07/31/17 at 21:00 Olanzapine (ZyPREXA) 20 mg QHS PO Last administered on 07/31/17 20:28; Start 07/31/17 at 21:00; Stop 08/01/17 at 09:51; Status DC Atorvastatin Calcium (Lipitor) 10 mg QHS PO ; Start 07/31/17 at 21:00; Stop 03/10 at 21:00; Status DC Phenytoin Sodium (Dilantin) 300 mg QHS PO Last administered on 08/28/17 19:41; Start 07/31/17 at 21:00 Non-Formulary Medication (Sodium Fluoride (Prevident 5000)) 1 carlee BID DT ; Start 07/31/17 at 09:00; Stop 07/31/17 at 09:00; Status DC Oxybutynin Chloride (Ditropan) 5 mg [id number] PO Last administered on 08/28/17 19: 41; Start 07/31/17 at 09:00 Quetiapine Fumarate (SEROquel) 100 mg BID PO Last administered on 08/08/17 20: 51; Start 07/31/17 at 09:00; Stop 08/09/17 at 18:03; Status DC Acetaminophen (Tylenol) 500 mg PRN Q4HRS PRN PO PAIN Last administered on 13:21; Start 07/31/17 at 07:15 Levothyroxine Sodium (Synthroid) 200 mcg DAILY06 PO Last administered on 06:13; Start 07/31/17 at 07:15 Fish Oil (Fish Oil) 1,000 mg DAILY PO Last administered on 07/31/17at 09:36; Start 07/31/17 at 09:00; Stop 08/01/17 at 09:51; Status DC Selenium Sulfide (Selsun) 1 carlee TWICEWEEKLY TP ; Start 07/31/17 at 07:30; Stop 07/31/17 at 14:29; Status DC Divalproex Sodium (Depakote Er) 1,000 mg QHS PO Last administered on 07/31/17 20:26; Start 07/31/17 at 21:00; Stop 08/01/17 at 18:29; Status DC Atorvastatin Calcium (Lipitor) 10 mg QHS PO Last administered on 08/28/17 19:41 ; Start 07/31/17 at 21:00 Divalproex Sodium (Depakote Er) 500 mg DAILY PO Last administered on 08/01/17 09:10; Start 07/31/17 at 09:00; Stop 08/01/17 at 09:51; Status DC Olanzapine (ZyPREXA) 10 mg DAILY PO Last administered on 08/01/17at 09:30; Start 07/31/17 at 09:00; Stop 08/01/17 at 09:51; Status DC Olanzapine (ZyPREXA) 5 mg DAILY@1400 PO Last administered on 07/31/17 15:07; Start 07/31/17 at 14:00; Stop 08/01/17 at 09:51; Status DC Selenium Sulfide (Selsun) 1 carlee TWICEWEEKLY TP ; Start 07/31/17 at 14:29 Divalproex Sodium (Depakote Er) 750 mg DAILY PO ; Start 08/02/17 at 09:00; Stop 08/02/17 at 09:00; Status DC Divalproex Sodium (Depakote Sprinkles) 750 mg BID PO Last administered on 09:21; Start 08/01/17 at 21:00; Stop 08/04/17 at 14:28; Status DC Al Hydroxide/Mg Hydroxide (Mylanta Plus Xs) 30 ml PRN AFTMEAL PRN PO DYSPEPSIA Last administered on 08/28/17 16:22; Start 08/03/17 at 12:00 Magnesium Hydroxide (Milk Of Magnesia) 2,400 mg PRN DAILY PRN PO CONSTIPATION Last administered on 08/14/17 20:28; Start 08/03/17 at 17:00 Divalproex Sodium (Depakote Sprinkles) 1,000 mg BID PO Last administered on 07:51; Start 08/04/17 at 21:00; Stop 08/07/17 at 18:35; Status DC Polyethylene Glycol (miraLAX) 17 gm DAILY PO Last administered on 08/28/17 07: 50; Start 08/05/17 at 09:00 Trazodone HCl (Desyrel) 100 mg QHS PO Last administered on 08/18/17at 19:34; Start 08/06/17 at 21:00; Stop 08/19/17 at 18:44; Status DC Trazodone HCl (Desyrel) 100 mg PRN QHS PRN PO INSOMNIA Last administered on at 21:05; Start 08/06/17 at 19:00; Stop 08/19/17 at 18:44; Status DC Divalproex Sodium (Depakote Sprinkles) 1,250 mg BID PO Last administered on at 20:51; Start 08/07/17 at 21:00; Stop 08/09/17 at 18:31; Status DC Quetiapine Fumarate (SEROquel) 50 mg BID PO Last administered on 08/19/17at 09: 19; Start 08/09/17 at 21:00; Stop 08/19/17 at 10:47; Status DC Divalproex Sodium (Depakote Sprinkles) 1,500 mg BID PO Last administered on at 08:25; Start 08/09/17 at 21:00; Stop 08/12/17 at 10:53; Status DC Trazodone HCl (Desyrel) 25 mg TID@0900,1300,1700 PO Last administered on at 17:10; Start 08/12/17 at 09:00; Stop 08/13/17 at 18:00; Status DC Divalproex Sodium (Depakote Sprinkles) 1,750 mg BID PO Last administered on at 09:32; Start 08/12/17 at 21:00; Stop 08/16/17 at 18:48; Status DC Trazodone HCl (Desyrel) 25 mg BID@1300,1700 PO Last administered on 08/28/17at 17 :26; Start 08/14/17 at 13:00 Trazodone HCl (Desyrel) 50 mg DAILY PO Last administered on 08/28/17at 07:50; Start 08/14/17 at 09:00 Trazodone HCl (Desyrel) 50 mg 1X ONCE PO Last administered on 08/13/17at 18:29 ; Start 08/13/17 at 18:30; Stop 08/13/17 at 18:31; Status DC Sertraline HCl (Zoloft) 25 mg DAILY PO Last administered on 08/17/17 07:47; Start 08/15/17 at 09:00; Stop 08/17/17 at 11:00; Status DC Sertraline HCl (Zoloft) 50 mg DAILY PO Last administered on 08/28/17 07:49; Start 08/18/17 at 09:00 Divalproex Sodium (Depakote Sprinkles) 2,000 mg BID PO Last administered on 08/23 09:05; Start 08/16/17 at 21:00; Stop 08/23/17 at 18:02; Status DC Buspirone HCl (Buspar) 5 mg TID@0900,1300,1700 PO Last administered on 17:26; Start 08/17/17 at 09:00 Quetiapine Fumarate (SEROquel) 50 mg TID@0900,1300,1700 PO Last administered on 08/28/17 17:26; Start 08/19/17 at 13:00 Mirtazapine (Remeron) 7.5 mg QHS PO Last administered on 08/28/17 19:41; Start 08/19/17 at 21:00 Hydroxyzine HCl (Atarax) 50 mg PRN QHS PRN PO INSOMNIA, MAY REPEAT X1 Last administered on 08/25/17 22:22; Start 08/20/17 at 22:30 Divalproex Sodium (Depakote Sprinkles) 2,250 mg BID PO Last administered on 08/26 09:06; Start 08/23/17 at 21:00; Stop 08/26/17 at 10:43; Status DC Divalproex Sodium (Depakote Sprinkles) 2,500 mg BID PO Last administered on 08/28 19:42; Start 08/26/17 at 21:00; Stop 08/28/17 at 22:15; Status DC Iohexol (Omnipaque 300 Mg/ml) 75 ml 1X ONCE IV Last administered on 08/27/17at 22:59; Start 08/27/17 at 19:00; Stop 08/27/17 at 19:04; Status DC Divalproex Sodium (Depakote Sprinkles) 1,250 mg QID PO ; Start 4/8/18 at 09:00 ; Status UNV Active Scripts Active Reported Ibuprofen 400 Mg Tablet 400 Mg PO PRN Q4HRS PRN MDD 1200mg/24hrs Lorazepam 2 Mg/1 Ml Vial 1 Mg IM BID PRN Abilify Maintena (Aripiprazole) 400 Mg Suser.vial 400 Mg IM Q4WK Next dose due 08/26/17 Paroxetine Hcl 20 Mg Tablet 10 Mg PO DAILY Abilify (Aripiprazole) 5 Mg Tablet 5 Mg PO DAILY Fenofibrate 160 Mg Tablet 160 Mg PO QHS Olanzapine 5 Mg Tablet 5 Mg PO DAILY@1400 5mg PO daily at 14:00 Methylphenidate Hcl 10 Mg Tablet 10 Mg PO BID@0900,1300 Seroquel (Quetiapine Fumarate) 100 Mg Tablet 100 Mg PO BID Prevident 5000 (Sodium Fluoride) 100 Ml Gel..ml. 1 Carlee DT BID Selenium Sulfide 180 Ml Shampoo 1 Carlee TP TWICE WEEKLY Lorazepam 1 Mg Tablet 1 Mg PO PRN BID PRN Acetaminophen 500 Mg Tablet 500 Mg PO PRN Q4HRS PRN Risperdal Consta (Risperidone Microspheres) 25 Mg/2 Ml Disp.syrin 25 Mg IM Q2WKS Phenytoin 125 Mg/5 Ml Oral.susp 300 Mg PO QHS Zyprexa (Olanzapine) 20 Mg Tablet 20 Mg PO QHS Atorvastatin Calcium 10 Mg Tablet 10 Mg PO QHS Zyprexa (Olanzapine) 5 Mg Tablet 5 Mg PO DAILY@1400 Clozapine 200 Mg Tablet 500 Mg PO QHS Clozapine 200 Mg Tablet 200 Mg PO DAILY Detrol La (Tolterodine Tartrate) 2 Mg Cap.er.24h 2 Mg PO BID Depakote Er (Divalproex Sodium) 500 Mg Tab.er.24h 500 Mg PO DAILY Depakote Er (Divalproex Sodium) 500 Mg Tab.er.24h 1,000 Mg PO QHS [place] 3 1,000 Mg Softgel ([place]-3 Fatty Acids/Fish Oil) 1 Each Capsule 1,000 Mg PO DAILY Thera-M Tablet (Multivits,Ca,Minerals/Iron/Fa) 1 Each Tablet 1 Tab PO DAILY Vitamin D3 (Cholecalciferol (Vitamin D3)) 1,000 Unit Tablet 2,000 Unit PO DAILY Olanzapine 10 Mg Tablet 10 Mg PO DAILY Miralax (Polyethylene Glycol 3350) 119 Gm Powder 17 Gm PO DAILY Levothyroxine Sodium 200 Mcg Tablet 200 Mcg PO DAILY06 Pantoprazole Sodium 40 Mg Tablet. 40 Mg PO DAILY I have reviewed the current psychotropics carefully including drug interactions. Risk benefit ratio favors no change other than as noted in my dictated progress note. Diagnosis: Problems: (1) Dementia in Alzheimer's disease with delusions (2) Impulse control disorder (3) Schizoaffective disorder, chronic condition with acute exacerbation (4) Borderline intellectual disability STEVEN AYALA MD Aug 28, 2017 22:45
[2017-08-29] MEDS: LEVOTHYROXINE 100 MCG TABLET PO SCH (05:48)
[2017-08-29 05:51] VITALS: BP 97/52
[2017-08-29] MEDS: DIVALPROEX 125 MG CAP.SPRINK PO SCH ×3 (07:36→17:13)
[2017-08-29] MEDS: OXYBUTYNIN CHLORIDE 5 MG TABLET PO SCH ×3 (07:37→19:48)
[2017-08-29] MEDS: cloZAPine 100 MG TABLET PO SCH ×2 (07:37→19:49)
[2017-08-29] MEDS: QUEtiapine 50 MG TABLET. PO SCH ×3 (07:37→17:14)
[2017-08-29] MEDS: POLYETHYLENE GLYCOL 3350 17 GM PACKET. PO SCH (07:37)
[2017-08-29] MEDS: busPIRone 5 MG TABLET. PO SCH ×3 (07:37→17:14)
[2017-08-29] MEDS: SERTRALINE 25 MG TABLET. PO SCH (07:37)
[2017-08-29] MEDS: traZODone 50 MG TABLET. PO SCH ×3 (07:37→17:14)
[2017-08-29 07:45] LABS: BASO # 0.1 x10^3/uL (0.0-0.2); BASO % 1 % (0-3); EOS # 0.2 x10^3/uL (0.0-0.7); EOS % 3 % (0-3); HEMATOCRIT 37.7 % (39.0-53.0); HEMOGLOBIN 12.7 g/dL (13.0-17.5); LYMPH # 2.2 x10^3/uL (1.0-4.8); LYMPH % 32 % (24-48); MEAN CORPUSCULAR HEMOGLOBIN 31 pg (25-35); MEAN CORPUSCULAR HGB CONC 34 g/dL (31-37); MEAN CORPUSCULAR VOLUME 92 fL (79-100); MONO # 0.6 x10^3/uL (0.0-1.1); MONO % 9 % (0-9); NEUT # 3.8 x10^3uL (1.8-7.7); NEUT % 55 % (31-73); PLATELET COUNT 172 x10^3/uL (140-400); RED BLOOD COUNT 4.08 x10^6/uL (4.30-5.70); RED CELL DISTRIBUTION WIDTH 12.8 % (11.5-14.5); WHITE BLOOD COUNT 6.9 x10^3/uL (4.0-11.0)
[2017-08-29 08:04] LABS: ALBUMIN 2.6 g/dL (3.4-5.0); ALBUMIN/GLOBULIN RATIO 0.8 (1.0-1.7); ALK PHOS 66 U/L (46-116); ALT (SGPT) 28 U/L (16-63); ANION GAP 8 (6-14); AST (SGOT) 19 U/L (15-37); BLOOD UREA NITROGEN 15 mg/dL (8-26); BUN/CREATININE RATIO 19 (6-20); CALCIUM 8.8 mg/dL (8.5-10.1); CARBON DIOXIDE 27 mmol/L (21-32); CHLORIDE 105 mmol/L (98-107); CREATININE 0.8 mg/dL (0.7-1.3); GFR 100.7; GLUCOSE 89 mg/dL (70-99); SODIUM 140 mmol/L (136-145); TOTAL BILIRUBIN 0.2 mg/dL (0.2-1.0); VAL ACID 49 mcg/mL (50-100)
[2017-08-29 15:39] VITALS: BP 125/84
[2017-08-29] MEDS: ATORVASTATIN CALCIUM 10 MG TABLET. PO SCH (19:48)
[2017-08-29] MEDS: PHENYTOIN SODIUM EXTENDED 100 MG CAPSULE PO SCH (19:48)
[2017-08-29] MEDS: MIRTAZAPINE 7.5 MG TABLET. PO SCH (19:48)
--- NOTE | 2017-08-29 20:49 | PDOC ---
Exam Note: Chad Note: Please also refer to the separate dictated note~for this date of service dictated separately.~Patient seen individually. Discussed the patient with Nursing staff reviewed the chart.~Reviewed interim history and current functioning. Reviewed vital signs,~Labs/ Radiology~and current medications noted below. Continue current treatment with the changes noted in the dictated addendum note Assessment: Vital Signs: Vital Signs Date Time Temp Pulse Resp B/P (MAP) Pulse Ox O2 Delivery O2 Flow Rate FiO2 08/29/17 15:39 97.7 86 18 125/84 (98) 98 08/25/17 16:02 Room Air I&O Intake and Output 08/29/17 07:00 Intake Total 960 ml Balance 960 ml Intake Oral 960 ml Labs: Laboratory Tests Test 08/29/17 07:18 White Blood Count 6.9 x10^3/uL (4.0-11.0) Red Blood Count 4.08 x10^6/uL (4.30-5.70) L Hemoglobin 12.7 g/dL (13.0-17.5) L Hematocrit 37.7 % (39.0-53.0) L Mean Corpuscular Volume 92 fL (79-100) Mean Corpuscular Hemoglobin 31 pg (25-35) Mean Corpuscular Hemoglobin Concent 34 g/dL (31-37) Red Cell Distribution Width 12.8 % (11.5-14.5) Platelet Count 172 x10^3/uL (140-400) Neutrophils (%) (Auto) 55 % (31-73) Lymphocytes (%) (Auto) 32 % (24-48) Monocytes (%) (Auto) 9 % (0-9) Eosinophils (%) (Auto) 3 % (0-3) Basophils (%) (Auto) 1 % (0-3) Neutrophils # (Auto) 3.8 x10^3uL (1.8-7.7) Lymphocytes # (Auto) 2.2 x10^3/uL (1.0-4.8) Monocytes # (Auto) 0.6 x10^3/uL (0.0-1.1) Eosinophils # (Auto) 0.2 x10^3/uL (0.0-0.7) Basophils # (Auto) 0.1 x10^3/uL (0.0-0.2) Sodium Level 140 mmol/L (136-145) Potassium Level 4.0 mmol/L (3.5-5.1) Chloride Level 105 mmol/L (98-107) Carbon Dioxide Level 27 mmol/L (21-32) Anion Gap 8 (6-14) Blood Urea Nitrogen 15 mg/dL (8-26) Creatinine 0.8 mg/dL (0.7-1.3) Estimated GFR (Cockcroft-Gault) 100.7 BUN/Creatinine Ratio 19 (6-20) Glucose Level 89 mg/dL (70-99) Calcium Level 8.8 mg/dL (8.5-10.1) Total Bilirubin 0.2 mg/dL (0.2-1.0) Aspartate Amino Transferase (AST) 19 U/L (15-37) Alanine Aminotransferase (ALT) 28 U/L (16-63) Alkaline Phosphatase 66 U/L (46-116) Total Protein 6.0 g/dL (6.4-8.2) L Albumin 2.6 g/dL (3.4-5.0) L Albumin/Globulin Ratio 0.8 (1.0-1.7) L Valproic Acid Level 49 mcg/mL (50-100) L Valproic Acid Last Dose Date 08/28/17 Valproic Acid Last Dose Time 2100 Current Medications: Meds: Current Medications Valproic Acid (Depakene) 500 mg STAT PO Last administered on 07/30/17at 21:21; Start 07/30/17 at 20:49; Stop 08/01/17 at 15:23; Status DC Divalproex Sodium (Depakote Er) 1,000 mg QHS PO ; Start 07/31/17 at 21:00; Stop 07/31/17 at 21:00; Status DC Divalproex Sodium (Depakote Er) 500 mg DAILY PO ; Start 07/31/17 at 09:00; Stop 07/31/17 at 09:00; Status DC Lorazepam (Ativan) 1 mg PRN BID PRN PO ANXIETY / AGITATION Last administered on 08/28/17at 16:22; Start 07/30/17 at 23:00 Olanzapine (ZyPREXA) 10 mg DAILY PO ; Start 07/31/17 at 09:00; Stop 07/31/17 at 09:00; Status DC Olanzapine (ZyPREXA) 5 mg DAILY@1400 PO ; Start 07/31/17 at 14:00; Stop at 14:00; Status DC Risperidone (RisperDAL CONSTA) 25 mg Q2WKS IM ; Start 08/13/17 at 09:00; Status UNV Clozapine (Clozaril) 200 mg DAILY PO Last administered on 08/29/17 07:37; Start 07/31/17 at 09:00 Clozapine (Clozaril) 500 mg QHS PO Last administered on 08/29/17 19:49; Start 07/31/17 at 21:00 Olanzapine (ZyPREXA) 20 mg QHS PO Last administered on 07/31/17 20:28; Start 07/31/17 at 21:00; Stop 08/01/17 at 09:51; Status DC Atorvastatin Calcium (Lipitor) 10 mg QHS PO ; Start 07/31/17 at 21:00; Stop 03/10 at 21:00; Status DC Phenytoin Sodium (Dilantin) 300 mg QHS PO Last administered on 08/29/17 19:48; Start 07/31/17 at 21:00 Non-Formulary Medication (Sodium Fluoride (Prevident 5000)) 1 carlee BID DT ; Start 07/31/17 at 09:00; Stop 07/31/17 at 09:00; Status DC Oxybutynin Chloride (Ditropan) 5 mg [id number] PO Last administered on 08/29/17 19: 48; Start 07/31/17 at 09:00 Quetiapine Fumarate (SEROquel) 100 mg BID PO Last administered on 08/08/17 20: 51; Start 07/31/17 at 09:00; Stop 08/09/17 at 18:03; Status DC Acetaminophen (Tylenol) 500 mg PRN Q4HRS PRN PO PAIN Last administered on 13:21; Start 07/31/17 at 07:15 Levothyroxine Sodium (Synthroid) 200 mcg DAILY06 PO Last administered on 05:48; Start 07/31/17 at 07:15 Fish Oil (Fish Oil) 1,000 mg DAILY PO Last administered on 07/31/17at 09:36; Start 07/31/17 at 09:00; Stop 08/01/17 at 09:51; Status DC Selenium Sulfide (Selsun) 1 carlee TWICEWEEKLY TP ; Start 07/31/17 at 07:30; Stop 07/31/17 at 14:29; Status DC Divalproex Sodium (Depakote Er) 1,000 mg QHS PO Last administered on 07/31/17at 20:26; Start 07/31/17 at 21:00; Stop 08/01/17 at 18:29; Status DC Atorvastatin Calcium (Lipitor) 10 mg QHS PO Last administered on 08/29/17at 19:48 ; Start 07/31/17 at 21:00 Divalproex Sodium (Depakote Er) 500 mg DAILY PO Last administered on 08/01/17at 09:10; Start 07/31/17 at 09:00; Stop 08/01/17 at 09:51; Status DC Olanzapine (ZyPREXA) 10 mg DAILY PO Last administered on 08/01/17at 09:30; Start 07/31/17 at 09:00; Stop 08/01/17 at 09:51; Status DC Olanzapine (ZyPREXA) 5 mg DAILY@1400 PO Last administered on 07/31/17at 15:07; Start 07/31/17 at 14:00; Stop 08/01/17 at 09:51; Status DC Selenium Sulfide (Selsun) 1 carlee TWICEWEEKLY TP ; Start 07/31/17 at 14:29 Divalproex Sodium (Depakote Er) 750 mg DAILY PO ; Start 08/02/17 at 09:00; Stop 08/02/17 at 09:00; Status DC Divalproex Sodium (Depakote Sprinkles) 750 mg BID PO Last administered on at 09:21; Start 08/01/17 at 21:00; Stop 08/04/17 at 14:28; Status DC Al Hydroxide/Mg Hydroxide (Mylanta Plus Xs) 30 ml PRN AFTMEAL PRN PO DYSPEPSIA Last administered on 08/28/17at 16:22; Start 08/03/17 at 12:00 Magnesium Hydroxide (Milk Of Magnesia) 2,400 mg PRN DAILY PRN PO CONSTIPATION Last administered on 08/14/17at 20:28; Start 08/03/17 at 17:00 Divalproex Sodium (Depakote Sprinkles) 1,000 mg BID PO Last administered on at 07:51; Start 08/04/17 at 21:00; Stop 08/07/17 at 18:35; Status DC Polyethylene Glycol (miraLAX) 17 gm DAILY PO Last administered on 08/29/17at 07: 37; Start 08/05/17 at 09:00 Trazodone HCl (Desyrel) 100 mg QHS PO Last administered on 08/18/17at 19:34; Start 08/06/17 at 21:00; Stop 08/19/17 at 18:44; Status DC Trazodone HCl (Desyrel) 100 mg PRN QHS PRN PO INSOMNIA Last administered on at 21:05; Start 08/06/17 at 19:00; Stop 08/19/17 at 18:44; Status DC Divalproex Sodium (Depakote Sprinkles) 1,250 mg BID PO Last administered on at 20:51; Start 08/07/17 at 21:00; Stop 08/09/17 at 18:31; Status DC Quetiapine Fumarate (SEROquel) 50 mg BID PO Last administered on 08/19/17at 09: 19; Start 08/09/17 at 21:00; Stop 08/19/17 at 10:47; Status DC Divalproex Sodium (Depakote Sprinkles) 1,500 mg BID PO Last administered on at 08:25; Start 08/09/17 at 21:00; Stop 08/12/17 at 10:53; Status DC Trazodone HCl (Desyrel) 25 mg TID@0900,1300,1700 PO Last administered on at 17:10; Start 08/12/17 at 09:00; Stop 08/13/17 at 18:00; Status DC Divalproex Sodium (Depakote Sprinkles) 1,750 mg BID PO Last administered on at 09:32; Start 08/12/17 at 21:00; Stop 08/16/17 at 18:48; Status DC Trazodone HCl (Desyrel) 25 mg BID@1300,1700 PO Last administered on 08/29/17 17 :14; Start 08/14/17 at 13:00 Trazodone HCl (Desyrel) 50 mg DAILY PO Last administered on 08/29/17 07:37; Start 08/14/17 at 09:00 Trazodone HCl (Desyrel) 50 mg 1X ONCE PO Last administered on 08/13/17 18:29 ; Start 08/13/17 at 18:30; Stop 08/13/17 at 18:31; Status DC Sertraline HCl (Zoloft) 25 mg DAILY PO Last administered on 08/17/17 07:47; Start 08/15/17 at 09:00; Stop 08/17/17 at 11:00; Status DC Sertraline HCl (Zoloft) 50 mg DAILY PO Last administered on 08/29/17 07:37; Start 08/18/17 at 09:00 Divalproex Sodium (Depakote Sprinkles) 2,000 mg BID PO Last administered on 08/23 09:05; Start 08/16/17 at 21:00; Stop 08/23/17 at 18:02; Status DC Buspirone HCl (Buspar) 5 mg TID@0900,1300,1700 PO Last administered on 17:14; Start 08/17/17 at 09:00 Quetiapine Fumarate (SEROquel) 50 mg TID@0900,1300,1700 PO Last administered on 08/29/17 17:14; Start 08/19/17 at 13:00 Mirtazapine (Remeron) 7.5 mg QHS PO Last administered on 08/29/17 19:48; Start 08/19/17 at 21:00 Hydroxyzine HCl (Atarax) 50 mg PRN QHS PRN PO INSOMNIA, MAY REPEAT X1 Last administered on 08/25/17 22:22; Start 08/20/17 at 22:30 Divalproex Sodium (Depakote Sprinkles) 2,250 mg BID PO Last administered on 08/26 09:06; Start 08/23/17 at 21:00; Stop 08/26/17 at 10:43; Status DC Divalproex Sodium (Depakote Sprinkles) 2,500 mg BID PO Last administered on 08/28at 19:42; Start 08/26/17 at 21:00; Stop 08/28/17 at 22:15; Status DC Iohexol (Omnipaque 300 Mg/ml) 75 ml 1X ONCE IV Last administered on 08/27/17at 22:59; Start 08/27/17 at 19:00; Stop 08/27/17 at 19:04; Status DC Divalproex Sodium (Depakote Sprinkles) 1,250 mg QID PO Last administered on 08/29at 17:13; Start 08/29/17 at 09:00; Stop 08/29/17 at 17:51; Status DC Divalproex Sodium (Depakote Sprinkles) 1,250 mg BID@0900,1200 PO ; Start at 09:00 Divalproex Sodium (Depakote Sprinkles) 1,375 mg BID@1700,2100 PO Last administered on 08/29/17at 19:48; Start 08/29/17 at 21:00 Active Scripts Active Reported Ibuprofen 400 Mg Tablet 400 Mg PO PRN Q4HRS PRN MDD 1200mg/24hrs Lorazepam 2 Mg/1 Ml Vial 1 Mg IM BID PRN Abilify Maintena (Aripiprazole) 400 Mg Suser.vial 400 Mg IM Q4WK Next dose due 08/26/17 Paroxetine Hcl 20 Mg Tablet 10 Mg PO DAILY Abilify (Aripiprazole) 5 Mg Tablet 5 Mg PO DAILY Fenofibrate 160 Mg Tablet 160 Mg PO QHS Olanzapine 5 Mg Tablet 5 Mg PO DAILY@1400 5mg PO daily at 14:00 Methylphenidate Hcl 10 Mg Tablet 10 Mg PO BID@0900,1300 Seroquel (Quetiapine Fumarate) 100 Mg Tablet 100 Mg PO BID Prevident 5000 (Sodium Fluoride) 100 Ml Gel..ml. 1 Carlee DT BID Selenium Sulfide 180 Ml Shampoo 1 Carlee TP TWICE WEEKLY Lorazepam 1 Mg Tablet 1 Mg PO PRN BID PRN Acetaminophen 500 Mg Tablet 500 Mg PO PRN Q4HRS PRN Risperdal Consta (Risperidone Microspheres) 25 Mg/2 Ml Disp.syrin 25 Mg IM Q2WKS Phenytoin 125 Mg/5 Ml Oral.susp 300 Mg PO QHS Zyprexa (Olanzapine) 20 Mg Tablet 20 Mg PO QHS Atorvastatin Calcium 10 Mg Tablet 10 Mg PO QHS Zyprexa (Olanzapine) 5 Mg Tablet 5 Mg PO DAILY@1400 Clozapine 200 Mg Tablet 500 Mg PO QHS Clozapine 200 Mg Tablet 200 Mg PO DAILY Detrol La (Tolterodine Tartrate) 2 Mg Cap.er.24h 2 Mg PO BID Depakote Er (Divalproex Sodium) 500 Mg Tab.er.24h 500 Mg PO DAILY Depakote Er (Divalproex Sodium) 500 Mg Tab.er.24h 1,000 Mg PO QHS [place] 3 1,000 Mg Softgel ([place]-3 Fatty Acids/Fish Oil) 1 Each Capsule 1,000 Mg PO DAILY Thera-M Tablet (Multivits,Ca,Minerals/Iron/Fa) 1 Each Tablet 1 Tab PO DAILY Vitamin D3 (Cholecalciferol (Vitamin D3)) 1,000 Unit Tablet 2,000 Unit PO DAILY Olanzapine 10 Mg Tablet 10 Mg PO DAILY Miralax (Polyethylene Glycol 3350) 119 Gm Powder 17 Gm PO DAILY Levothyroxine Sodium 200 Mcg Tablet 200 Mcg PO DAILY06 Pantoprazole Sodium 40 Mg Tablet.dr 40 Mg PO DAILY I have reviewed the current psychotropics carefully including drug interactions. Risk benefit ratio favors no change other than as noted in my dictated progress note. Diagnosis: Problems: (1) Dementia in Alzheimer's disease with delusions (2) Impulse control disorder (3) Schizoaffective disorder, chronic condition with acute exacerbation (4) Borderline intellectual disability STEVEN AYALA MD Aug 29, 2017 20:49
[2017-08-29] MEDS ORDERED: DIVALPROEX 125 MG CAP.SPRINK PO SCH (21:00)
--- NOTE | 2017-08-29 21:58 | PN ---
DATE: 08/27/2017 This is a late entry, 08/27/2017, covers the elements not covered in my initial note, 08/27/2017. SUBJECTIVE: I met with the patient evening of 08/27/2017. The patient had a reasonable day, though he threw up in the morning. Dr. Case is working this up from a GI standpoint. It was the evening he gets sundowning and gets more agitated, delusional. REVIEW OF SYSTEMS: No CV, , pulmonary, eye, ENT system symptoms on review. Reliability varies. MENTAL STATUS EXAM: Oriented to himself and situation. Speech is coherent, rapid at times. Abstraction fair, computation impaired, language function intact, attention span short. Mood and affect somewhat labile, less so than before. LABORATORY DATA: Reviewed. IMPRESSION: Schizoaffective disorder, bipolar type, mixed with psychotic features, intellectual disability. PLAN: Continue psychotropics as mentioned in my initial note. Check labs level on the Depakote, adjust to reach therapeutic level. MAN Suleman AYALA MD DR: ADALBERTO/garry JOB#: [id number] / [id number]
--- NOTE | 2017-08-29 22:03 | PN ---
DATE: 08/28/2017 This late entry for 08/28/2017 covers elements not covered in my initial note of 08/28/2017. SUBJECTIVE: I met with the patient in the evening of 08/28/2017. The patient continues to have abdominal GI symptoms. CT abdomen negative, still has some vomiting, but it could be because he is getting Depakote Sprinkles 2500 b.i.d. and 125 mg capsules each. We will change this to t.i.d. to help reduce the chance of nausea and vomiting. REVIEW OF SYSTEMS: Ambulation is reasonable. No CV, , pulmonary, eye system symptoms on review. MENTAL STATUS EXAM: Oriented to himself, situations. Speech coherent, rapid at times. Abstraction fair, computation impaired, language function intact, attention span short. Mood and affect remain somewhat labile, loud, grandiose at times. LABORATORY DATA: Reviewed. IMPRESSION: Schizoaffective disorder, bipolar type, mixed with psychotic features, intellectual disability. PLAN: Change the Depakote Sprinkles as noted. Follow labs level on 08/29/2017. Adjust further as clinically indicated. MAN Suleman AYALA MD DR: ADALBERTO/garry JOB#: [id number] / [id number]
[2017-08-30 06:16] VITALS: BP 106/52
[2017-08-30] MEDS: LEVOTHYROXINE 100 MCG TABLET PO SCH (06:24)
[2017-08-30] MEDS: OXYBUTYNIN CHLORIDE 5 MG TABLET PO SCH ×4 (08:04→19:49)
[2017-08-30] MEDS: traZODone 50 MG TABLET. PO SCH ×4 (08:05→17:23)
[2017-08-30] MEDS: QUEtiapine 50 MG TABLET. PO SCH ×4 (08:05→17:23)
[2017-08-30] MEDS: SERTRALINE 25 MG TABLET. PO SCH ×2 (08:05→09:17)
[2017-08-30] MEDS: cloZAPine 100 MG TABLET PO SCH ×3 (08:05→19:49)
[2017-08-30] MEDS: busPIRone 5 MG TABLET. PO SCH ×4 (08:05→17:23)
[2017-08-30] MEDS: POLYETHYLENE GLYCOL 3350 17 GM PACKET. PO SCH (08:06)
[2017-08-30] MEDS: DIVALPROEX 125 MG CAP.SPRINK PO SCH ×2 (08:07→09:00)
[2017-08-30] MEDS: VALPROATE ACID 250 MG/5 ML ORAL SOLUTION PO SCH ×4 (09:17→19:52)
[2017-08-30 16:07] VITALS: BP 93/54
[2017-08-30] MEDS: ATORVASTATIN CALCIUM 10 MG TABLET. PO SCH (19:49)
[2017-08-30] MEDS: PHENYTOIN SODIUM EXTENDED 100 MG CAPSULE PO SCH (19:49)
[2017-08-30] MEDS: MIRTAZAPINE 7.5 MG TABLET. PO SCH (19:50)
--- NOTE | 2017-08-30 21:20 | PN ---
DATE: 08/29/2017 This is a late entry for 08/29/2017 covers elements not covered in my initial note of 08/29/2017. SUBJECTIVE: I met with the patient in the evening of 08/29/2017. The patient has been doing better, anxious, compliant with medications, takes it crushed in pudding, somatic, stomach complaints are better since Depakote was split, very attention-seeking, demanding at times, but less so than before. REVIEW OF SYSTEMS: Positive for vague GI symptoms. No CV, , pulmonary, eye, ENT system symptoms on review. Reliability poor. MENTAL STATUS EXAM: Oriented to himself and situation. Speech coherent, rapid, loud at times. Abstraction fair, computation impaired, language function intact, attention span short. Mood and affect, lability is improved. LABORATORY DATA: Reviewed. IMPRESSION: Schizoaffective disorder, bipolar type, intellectual disability. PLAN: Valproic acid level is 49 on 08/29/2017. Increase Depakote from 1250 mg 4 times a day to 1250 mg twice a day, 1275 mg twice a day. Check CBC, CMP, valproic acid level in 3 days to reach a therapeutic level. MAN Suleman AYALA MD DR: ADALBERTO/garry JOB#: [id number] / [id number]
--- NOTE | 2017-08-30 22:00 | PDOC ---
Exam Note: Chad Note: Please also refer to the separate dictated note~for this date of service dictated separately.~Patient seen individually. Discussed the patient with Nursing staff reviewed the chart.~Reviewed interim history and current functioning. Reviewed vital signs,~Labs/ Radiology~and current medications noted below. Continue current treatment with the changes noted in the dictated addendum note Assessment: Vital Signs: Vital Signs Date Time Temp Pulse Resp B/P (MAP) Pulse Ox O2 Delivery O2 Flow Rate FiO2 08/30/17 16:07 97.6 76 18 93/54 (67) 99 08/25/17 16:02 Room Air I&O Intake and Output 08/30/17 07:00 Intake Total 1200 ml Balance 1200 ml Intake Oral 1200 ml Current Medications: Meds: Current Medications Valproic Acid (Depakene) 500 mg STAT PO Last administered on 07/30/17at 21:21; Start 07/30/17 at 20:49; Stop 08/01/17 at 15:23; Status DC Divalproex Sodium (Depakote Er) 1,000 mg QHS PO ; Start 07/31/17 at 21:00; Stop 07/31/17 at 21:00; Status DC Divalproex Sodium (Depakote Er) 500 mg DAILY PO ; Start 07/31/17 at 09:00; Stop 07/31/17 at 09:00; Status DC Lorazepam (Ativan) 1 mg PRN BID PRN PO ANXIETY / AGITATION Last administered on 08/28/17at 16:22; Start 07/30/17 at 23:00 Olanzapine (ZyPREXA) 10 mg DAILY PO ; Start 07/31/17 at 09:00; Stop 07/31/17 at 09:00; Status DC Olanzapine (ZyPREXA) 5 mg DAILY@1400 PO ; Start 07/31/17 at 14:00; Stop at 14:00; Status DC Risperidone (RisperDAL CONSTA) 25 mg Q2WKS IM ; Start 08/13/17 at 09:00; Status UNV Clozapine (Clozaril) 200 mg DAILY PO Last administered on 08/30/17at 09:18; Start 07/31/17 at 09:00 Clozapine (Clozaril) 500 mg QHS PO Last administered on 08/30/17at 19:49; Start 07/31/17 at 21:00 Olanzapine (ZyPREXA) 20 mg QHS PO Last administered on 07/31/17 20:28; Start 07/31/17 at 21:00; Stop 08/01/17 at 09:51; Status DC Atorvastatin Calcium (Lipitor) 10 mg QHS PO ; Start 07/31/17 at 21:00; Stop 03/10 at 21:00; Status DC Phenytoin Sodium (Dilantin) 300 mg QHS PO Last administered on 08/30/17 19:49; Start 07/31/17 at 21:00 Non-Formulary Medication (Sodium Fluoride (Prevident 5000)) 1 carlee BID DT ; Start 07/31/17 at 09:00; Stop 07/31/17 at 09:00; Status DC Oxybutynin Chloride (Ditropan) 5 mg [id number] PO Last administered on 08/30/17 19: 49; Start 07/31/17 at 09:00 Quetiapine Fumarate (SEROquel) 100 mg BID PO Last administered on 08/08/17 20: 51; Start 07/31/17 at 09:00; Stop 08/09/17 at 18:03; Status DC Acetaminophen (Tylenol) 500 mg PRN Q4HRS PRN PO PAIN Last administered on 13:21; Start 07/31/17 at 07:15 Levothyroxine Sodium (Synthroid) 200 mcg DAILY06 PO Last administered on 06:24; Start 07/31/17 at 07:15 Fish Oil (Fish Oil) 1,000 mg DAILY PO Last administered on 07/31/17at 09:36; Start 07/31/17 at 09:00; Stop 08/01/17 at 09:51; Status DC Selenium Sulfide (Selsun) 1 carlee TWICEWEEKLY TP ; Start 07/31/17 at 07:30; Stop 07/31/17 at 14:29; Status DC Divalproex Sodium (Depakote Er) 1,000 mg QHS PO Last administered on 07/31/17at 20:26; Start 07/31/17 at 21:00; Stop 08/01/17 at 18:29; Status DC Atorvastatin Calcium (Lipitor) 10 mg QHS PO Last administered on 4/9/18at 19:49 ; Start 07/31/17 at 21:00 Divalproex Sodium (Depakote Er) 500 mg DAILY PO Last administered on 08/01/17at 09:10; Start 07/31/17 at 09:00; Stop 08/01/17 at 09:51; Status DC Olanzapine (ZyPREXA) 10 mg DAILY PO Last administered on 08/01/17at 09:30; Start 07/31/17 at 09:00; Stop 08/01/17 at 09:51; Status DC Olanzapine (ZyPREXA) 5 mg DAILY@1400 PO Last administered on 07/31/17at 15:07; Start 07/31/17 at 14:00; Stop 08/01/17 at 09:51; Status DC Selenium Sulfide (Selsun) 1 carlee TWICEWEEKLY TP ; Start 07/31/17 at 14:29 Divalproex Sodium (Depakote Er) 750 mg DAILY PO ; Start 08/02/17 at 09:00; Stop 08/02/17 at 09:00; Status DC Divalproex Sodium (Depakote Sprinkles) 750 mg BID PO Last administered on 09:21; Start 08/01/17 at 21:00; Stop 08/04/17 at 14:28; Status DC Al Hydroxide/Mg Hydroxide (Mylanta Plus Xs) 30 ml PRN AFTMEAL PRN PO DYSPEPSIA Last administered on 08/28/17 16:22; Start 08/03/17 at 12:00 Magnesium Hydroxide (Milk Of Magnesia) 2,400 mg PRN DAILY PRN PO CONSTIPATION Last administered on 08/14/17at 20:28; Start 08/03/17 at 17:00 Divalproex Sodium (Depakote Sprinkles) 1,000 mg BID PO Last administered on at 07:51; Start 08/04/17 at 21:00; Stop 08/07/17 at 18:35; Status DC Polyethylene Glycol (miraLAX) 17 gm DAILY PO Last administered on 08/30/17 08: 06; Start 08/05/17 at 09:00 Trazodone HCl (Desyrel) 100 mg QHS PO Last administered on 08/18/17at 19:34; Start 08/06/17 at 21:00; Stop 08/19/17 at 18:44; Status DC Trazodone HCl (Desyrel) 100 mg PRN QHS PRN PO INSOMNIA Last administered on at 21:05; Start 08/06/17 at 19:00; Stop 08/19/17 at 18:44; Status DC Divalproex Sodium (Depakote Sprinkles) 1,250 mg BID PO Last administered on at 20:51; Start 08/07/17 at 21:00; Stop 08/09/17 at 18:31; Status DC Quetiapine Fumarate (SEROquel) 50 mg BID PO Last administered on 08/19/17at 09: 19; Start 08/09/17 at 21:00; Stop 08/19/17 at 10:47; Status DC Divalproex Sodium (Depakote Sprinkles) 1,500 mg BID PO Last administered on at 08:25; Start 08/09/17 at 21:00; Stop 08/12/17 at 10:53; Status DC Trazodone HCl (Desyrel) 25 mg TID@0900,1300,1700 PO Last administered on at 17:10; Start 08/12/17 at 09:00; Stop 08/13/17 at 18:00; Status DC Divalproex Sodium (Depakote Sprinkles) 1,750 mg BID PO Last administered on at 09:32; Start 08/12/17 at 21:00; Stop 08/16/17 at 18:48; Status DC Trazodone HCl (Desyrel) 25 mg BID@1300,1700 PO Last administered on 08/30/17 17 :23; Start 08/14/17 at 13:00 Trazodone HCl (Desyrel) 50 mg DAILY PO Last administered on 08/30/17at 09:17; Start 08/14/17 at 09:00 Trazodone HCl (Desyrel) 50 mg 1X ONCE PO Last administered on 08/13/17at 18:29 ; Start 08/13/17 at 18:30; Stop 08/13/17 at 18:31; Status DC Sertraline HCl (Zoloft) 25 mg DAILY PO Last administered on 08/17/17 07:47; Start 08/15/17 at 09:00; Stop 08/17/17 at 11:00; Status DC Sertraline HCl (Zoloft) 50 mg DAILY PO Last administered on 08/30/17 09:17; Start 08/18/17 at 09:00 Divalproex Sodium (Depakote Sprinkles) 2,000 mg BID PO Last administered on 08/23 09:05; Start 08/16/17 at 21:00; Stop 08/23/17 at 18:02; Status DC Buspirone HCl (Buspar) 5 mg TID@0900,1300,1700 PO Last administered on 17:23; Start 08/17/17 at 09:00 Quetiapine Fumarate (SEROquel) 50 mg TID@0900,1300,1700 PO Last administered on 08/30/17 17:23; Start 08/19/17 at 13:00 Mirtazapine (Remeron) 7.5 mg QHS PO Last administered on 08/30/17 19:50; Start 08/19/17 at 21:00 Hydroxyzine HCl (Atarax) 50 mg PRN QHS PRN PO INSOMNIA, MAY REPEAT X1 Last administered on 08/25/17 22:22; Start 08/20/17 at 22:30 Divalproex Sodium (Depakote Sprinkles) 2,250 mg BID PO Last administered on 08/26 09:06; Start 08/23/17 at 21:00; Stop 08/26/17 at 10:43; Status DC Divalproex Sodium (Depakote Sprinkles) 2,500 mg BID PO Last administered on 08/28 19:42; Start 08/26/17 at 21:00; Stop 08/28/17 at 22:15; Status DC Iohexol (Omnipaque 300 Mg/ml) 75 ml 1X ONCE IV Last administered on 08/27/17at 22:59; Start 08/27/17 at 19:00; Stop 08/27/17 at 19:04; Status DC Divalproex Sodium (Depakote Sprinkles) 1,250 mg QID PO Last administered on 08/29 17:13; Start 08/29/17 at 09:00; Stop 08/29/17 at 17:51; Status DC Divalproex Sodium (Depakote Sprinkles) 1,250 mg BID@0900,1200 PO ; Start at 09:00; Stop 08/30/17 at 09:11; Status DC Divalproex Sodium (Depakote Sprinkles) 1,375 mg BID@1700,2100 PO Last administered on 08/29/17at 19:48; Start 08/29/17 at 21:00; Stop 08/30/17 at 09:11; Status DC Valproic Acid (Depakene) 1,375 mg BID@1700,2100 PO Last administered on at 19:52; Start 08/30/17 at 17:00 Valproic Acid (Depakene) 1,250 mg BID@0900,1200 PO Last administered on at 12:13; Start 08/30/17 at 09:15 Active Scripts Active Reported Ibuprofen 400 Mg Tablet 400 Mg PO PRN Q4HRS PRN MDD 1200mg/24hrs Lorazepam 2 Mg/1 Ml Vial 1 Mg IM BID PRN Abilify Maintena (Aripiprazole) 400 Mg Suser.vial 400 Mg IM Q4WK Next dose due 08/26/17 Paroxetine Hcl 20 Mg Tablet 10 Mg PO DAILY Abilify (Aripiprazole) 5 Mg Tablet 5 Mg PO DAILY Fenofibrate 160 Mg Tablet 160 Mg PO QHS Olanzapine 5 Mg Tablet 5 Mg PO DAILY@1400 5mg PO daily at 14:00 Methylphenidate Hcl 10 Mg Tablet 10 Mg PO BID@0900,1300 Seroquel (Quetiapine Fumarate) 100 Mg Tablet 100 Mg PO BID Prevident 5000 (Sodium Fluoride) 100 Ml Gel..ml. 1 Carlee DT BID Selenium Sulfide 180 Ml Shampoo 1 Carlee TP TWICE WEEKLY Lorazepam 1 Mg Tablet 1 Mg PO PRN BID PRN Acetaminophen 500 Mg Tablet 500 Mg PO PRN Q4HRS PRN Risperdal Consta (Risperidone Microspheres) 25 Mg/2 Ml Disp.syrin 25 Mg IM Q2WKS Phenytoin 125 Mg/5 Ml Oral.susp 300 Mg PO QHS Zyprexa (Olanzapine) 20 Mg Tablet 20 Mg PO QHS Atorvastatin Calcium 10 Mg Tablet 10 Mg PO QHS Zyprexa (Olanzapine) 5 Mg Tablet 5 Mg PO DAILY@1400 Clozapine 200 Mg Tablet 500 Mg PO QHS Clozapine 200 Mg Tablet 200 Mg PO DAILY Detrol La (Tolterodine Tartrate) 2 Mg Cap.er.24h 2 Mg PO BID Depakote Er (Divalproex Sodium) 500 Mg Tab.er.24h 500 Mg PO DAILY Depakote Er (Divalproex Sodium) 500 Mg Tab.er.24h 1,000 Mg PO QHS Benedict 3 1,000 Mg Softgel (Benedict-3 Fatty Acids/Fish Oil) 1 Each Capsule 1,000 Mg PO DAILY Thera-M Tablet (Multivits,Ca,Minerals/Iron/Fa) 1 Each Tablet 1 Tab PO DAILY Vitamin D3 (Cholecalciferol (Vitamin D3)) 1,000 Unit Tablet 2,000 Unit PO DAILY Olanzapine 10 Mg Tablet 10 Mg PO DAILY Miralax (Polyethylene Glycol 3350) 119 Gm Powder 17 Gm PO DAILY Levothyroxine Sodium 200 Mcg Tablet 200 Mcg PO DAILY06 Pantoprazole Sodium 40 Mg Tablet.dr 40 Mg PO DAILY I have reviewed the current psychotropics carefully including drug interactions. Risk benefit ratio favors no change other than as noted in my dictated progress note. Diagnosis: Problems: (1) Dementia in Alzheimer's disease with delusions (2) Impulse control disorder (3) Schizoaffective disorder, chronic condition with acute exacerbation (4) Borderline intellectual disability STEVEN AYALA MD Aug 30, 2017 22:00
[2017-08-31] MEDS: LEVOTHYROXINE 100 MCG TABLET PO SCH (05:22)
[2017-08-31 05:59] VITALS: BP 108/50
[2017-08-31] MEDS: VALPROATE ACID 250 MG/5 ML ORAL SOLUTION PO SCH ×4 (08:35→19:57)
[2017-08-31] MEDS: QUEtiapine 50 MG TABLET. PO SCH ×3 (08:35→16:50)
[2017-08-31] MEDS: POLYETHYLENE GLYCOL 3350 17 GM PACKET. PO SCH (08:36)
[2017-08-31] MEDS: traZODone 50 MG TABLET. PO SCH ×3 (08:36→16:49)
[2017-08-31] MEDS: SERTRALINE 25 MG TABLET. PO SCH (08:36)
[2017-08-31] MEDS: cloZAPine 100 MG TABLET PO SCH ×2 (08:36→19:56)
[2017-08-31] MEDS: busPIRone 5 MG TABLET. PO SCH ×3 (08:36→16:49)
[2017-08-31] MEDS: OXYBUTYNIN CHLORIDE 5 MG TABLET PO SCH ×3 (08:36→19:56)
[2017-08-31 15:38] VITALS: BP 109/58
[2017-08-31] MEDS: ATORVASTATIN CALCIUM 10 MG TABLET. PO SCH (19:56)
[2017-08-31] MEDS: PHENYTOIN SODIUM EXTENDED 100 MG CAPSULE PO SCH (19:56)
[2017-08-31] MEDS: MIRTAZAPINE 7.5 MG TABLET. PO SCH (19:56)
--- NOTE | 2017-08-31 20:49 | PDOC ---
Exam Note: Chad Note: Please also refer to the separate dictated note~for this date of service dictated separately.~Patient seen individually. Discussed the patient with Nursing staff reviewed the chart.~Reviewed interim history and current functioning. Reviewed vital signs,~Labs/ Radiology~and current medications noted below. Continue current treatment with the changes noted in the dictated addendum note Assessment: Vital Signs: Vital Signs Date Time Temp Pulse Resp B/P (MAP) Pulse Ox O2 Delivery O2 Flow Rate FiO2 08/31/17 15:38 97.1 79 18 109/58 (75) 98 08/25/17 16:02 Room Air I&O Intake and Output 08/31/17 07:00 Intake Total 1920 ml Balance 1920 ml Intake Oral 1920 ml # Voids 2 Labs: Laboratory Tests Test 08/31/17 06:05 Magnesium Level 1.9 mg/dL (1.8-2.4) Current Medications: Meds: Current Medications Valproic Acid (Depakene) 500 mg STAT PO Last administered on 07/30/17at 21:21; Start 07/30/17 at 20:49; Stop 08/01/17 at 15:23; Status DC Divalproex Sodium (Depakote Er) 1,000 mg QHS PO ; Start 07/31/17 at 21:00; Stop 07/31/17 at 21:00; Status DC Divalproex Sodium (Depakote Er) 500 mg DAILY PO ; Start 07/31/17 at 09:00; Stop 07/31/17 at 09:00; Status DC Lorazepam (Ativan) 1 mg PRN BID PRN PO ANXIETY / AGITATION Last administered on 08/28/17at 16:22; Start 07/30/17 at 23:00 Olanzapine (ZyPREXA) 10 mg DAILY PO ; Start 07/31/17 at 09:00; Stop 07/31/17 at 09:00; Status DC Olanzapine (ZyPREXA) 5 mg DAILY@1400 PO ; Start 07/31/17 at 14:00; Stop at 14:00; Status DC Risperidone (RisperDAL CONSTA) 25 mg Q2WKS IM ; Start 08/13/17 at 09:00; Status UNV Clozapine (Clozaril) 200 mg DAILY PO Last administered on 08/31/17at 08:36; Start 07/31/17 at 09:00 Clozapine (Clozaril) 500 mg QHS PO Last administered on 08/31/17 19:56; Start 07/31/17 at 21:00 Olanzapine (ZyPREXA) 20 mg QHS PO Last administered on 07/31/17 20:28; Start 07/31/17 at 21:00; Stop 08/01/17 at 09:51; Status DC Atorvastatin Calcium (Lipitor) 10 mg QHS PO ; Start 07/31/17 at 21:00; Stop 03/10 at 21:00; Status DC Phenytoin Sodium (Dilantin) 300 mg QHS PO Last administered on 08/31/17 19:56 ; Start 07/31/17 at 21:00 Non-Formulary Medication (Sodium Fluoride (Prevident 5000)) 1 carlee BID DT ; Start 07/31/17 at 09:00; Stop 07/31/17 at 09:00; Status DC Oxybutynin Chloride (Ditropan) 5 mg [id number] PO Last administered on 08/31/17 19 :56; Start 07/31/17 at 09:00 Quetiapine Fumarate (SEROquel) 100 mg BID PO Last administered on 08/08/17 20: 51; Start 07/31/17 at 09:00; Stop 08/09/17 at 18:03; Status DC Acetaminophen (Tylenol) 500 mg PRN Q4HRS PRN PO PAIN Last administered on 13:21; Start 07/31/17 at 07:15 Levothyroxine Sodium (Synthroid) 200 mcg DAILY06 PO Last administered on at 05:22; Start 07/31/17 at 07:15 Fish Oil (Fish Oil) 1,000 mg DAILY PO Last administered on 07/31/17at 09:36; Start 07/31/17 at 09:00; Stop 08/01/17 at 09:51; Status DC Selenium Sulfide (Selsun) 1 carlee TWICEWEEKLY TP ; Start 07/31/17 at 07:30; Stop 07/31/17 at 14:29; Status DC Divalproex Sodium (Depakote Er) 1,000 mg QHS PO Last administered on 07/31/17at 20:26; Start 07/31/17 at 21:00; Stop 08/01/17 at 18:29; Status DC Atorvastatin Calcium (Lipitor) 10 mg QHS PO Last administered on 08/31/17at 19: 56; Start 07/31/17 at 21:00 Divalproex Sodium (Depakote Er) 500 mg DAILY PO Last administered on 08/01/17at 09:10; Start 07/31/17 at 09:00; Stop 08/01/17 at 09:51; Status DC Olanzapine (ZyPREXA) 10 mg DAILY PO Last administered on 08/01/17at 09:30; Start 07/31/17 at 09:00; Stop 08/01/17 at 09:51; Status DC Olanzapine (ZyPREXA) 5 mg DAILY@1400 PO Last administered on 07/31/17at 15:07; Start 07/31/17 at 14:00; Stop 08/01/17 at 09:51; Status DC Selenium Sulfide (Selsun) 1 carlee TWICEWEEKLY TP ; Start 07/31/17 at 14:29 Divalproex Sodium (Depakote Er) 750 mg DAILY PO ; Start 08/02/17 at 09:00; Stop 08/02/17 at 09:00; Status DC Divalproex Sodium (Depakote Sprinkles) 750 mg BID PO Last administered on at 09:21; Start 08/01/17 at 21:00; Stop 08/04/17 at 14:28; Status DC Al Hydroxide/Mg Hydroxide (Mylanta Plus Xs) 30 ml PRN AFTMEAL PRN PO DYSPEPSIA Last administered on 08/28/17at 16:22; Start 08/03/17 at 12:00 Magnesium Hydroxide (Milk Of Magnesia) 2,400 mg PRN DAILY PRN PO CONSTIPATION Last administered on 08/14/17at 20:28; Start 08/03/17 at 17:00 Divalproex Sodium (Depakote Sprinkles) 1,000 mg BID PO Last administered on at 07:51; Start 08/04/17 at 21:00; Stop 08/07/17 at 18:35; Status DC Polyethylene Glycol (miraLAX) 17 gm DAILY PO Last administered on 08/31/17at 08: 36; Start 3/15/18 at 09:00 Trazodone HCl (Desyrel) 100 mg QHS PO Last administered on 08/18/17at 19:34; Start 08/06/17 at 21:00; Stop 08/19/17 at 18:44; Status DC Trazodone HCl (Desyrel) 100 mg PRN QHS PRN PO INSOMNIA Last administered on at 21:05; Start 08/06/17 at 19:00; Stop 08/19/17 at 18:44; Status DC Divalproex Sodium (Depakote Sprinkles) 1,250 mg BID PO Last administered on at 20:51; Start 08/07/17 at 21:00; Stop 08/09/17 at 18:31; Status DC Quetiapine Fumarate (SEROquel) 50 mg BID PO Last administered on 08/19/17at 09: 19; Start 08/09/17 at 21:00; Stop 08/19/17 at 10:47; Status DC Divalproex Sodium (Depakote Sprinkles) 1,500 mg BID PO Last administered on at 08:25; Start 08/09/17 at 21:00; Stop 08/12/17 at 10:53; Status DC Trazodone HCl (Desyrel) 25 mg TID@0900,1300,1700 PO Last administered on at 17:10; Start 08/12/17 at 09:00; Stop 08/13/17 at 18:00; Status DC Divalproex Sodium (Depakote Sprinkles) 1,750 mg BID PO Last administered on at 09:32; Start 08/12/17 at 21:00; Stop 08/16/17 at 18:48; Status DC Trazodone HCl (Desyrel) 25 mg BID@1300,1700 PO Last administered on 08/31/17 16:49; Start 08/14/17 at 13:00 Trazodone HCl (Desyrel) 50 mg DAILY PO Last administered on 08/31/17at 08:36; Start 08/14/17 at 09:00 Trazodone HCl (Desyrel) 50 mg 1X ONCE PO Last administered on 08/13/17at 18:29 ; Start 08/13/17 at 18:30; Stop 08/13/17 at 18:31; Status DC Sertraline HCl (Zoloft) 25 mg DAILY PO Last administered on 08/17/17at 07:47; Start 08/15/17 at 09:00; Stop 08/17/17 at 11:00; Status DC Sertraline HCl (Zoloft) 50 mg DAILY PO Last administered on 08/31/17at 08:36; Start 08/18/17 at 09:00 Divalproex Sodium (Depakote Sprinkles) 2,000 mg BID PO Last administered on 08/23 09:05; Start 08/16/17 at 21:00; Stop 08/23/17 at 18:02; Status DC Buspirone HCl (Buspar) 5 mg TID@0900,1300,1700 PO Last administered on 16:49; Start 08/17/17 at 09:00 Quetiapine Fumarate (SEROquel) 50 mg TID@0900,1300,1700 PO Last administered on 08/31/17 16:50; Start 08/19/17 at 13:00 Mirtazapine (Remeron) 7.5 mg QHS PO Last administered on 08/31/17 19:56; Start 08/19/17 at 21:00 Hydroxyzine HCl (Atarax) 50 mg PRN QHS PRN PO INSOMNIA, MAY REPEAT X1 Last administered on 08/25/17 22:22; Start 08/20/17 at 22:30 Divalproex Sodium (Depakote Sprinkles) 2,250 mg BID PO Last administered on 08/26 09:06; Start 08/23/17 at 21:00; Stop 08/26/17 at 10:43; Status DC Divalproex Sodium (Depakote Sprinkles) 2,500 mg BID PO Last administered on 08/28 19:42; Start 08/26/17 at 21:00; Stop 08/28/17 at 22:15; Status DC Iohexol (Omnipaque 300 Mg/ml) 75 ml 1X ONCE IV Last administered on 08/27/17at 22:59; Start 08/27/17 at 19:00; Stop 08/27/17 at 19:04; Status DC Divalproex Sodium (Depakote Sprinkles) 1,250 mg QID PO Last administered on 08/29at 17:13; Start 08/29/17 at 09:00; Stop 08/29/17 at 17:51; Status DC Divalproex Sodium (Depakote Sprinkles) 1,250 mg BID@0900,1200 PO ; Start at 09:00; Stop 08/30/17 at 09:11; Status DC Divalproex Sodium (Depakote Sprinkles) 1,375 mg BID@1700,2100 PO Last administered on 08/29/17at 19:48; Start 08/29/17 at 21:00; Stop 08/30/17 at 09:11; Status DC Valproic Acid (Depakene) 1,375 mg BID@1700,2100 PO Last administered on at 19:57; Start 08/30/17 at 17:00 Valproic Acid (Depakene) 1,250 mg BID@0900,1200 PO Last administered on at 12:23; Start 08/30/17 at 09:15 Active Scripts Active Reported Ibuprofen 400 Mg Tablet 400 Mg PO PRN Q4HRS PRN MDD 1200mg/24hrs Lorazepam 2 Mg/1 Ml Vial 1 Mg IM BID PRN Abilify Maintena (Aripiprazole) 400 Mg Suser.vial 400 Mg IM Q4WK Next dose due 08/26/17 Paroxetine Hcl 20 Mg Tablet 10 Mg PO DAILY Abilify (Aripiprazole) 5 Mg Tablet 5 Mg PO DAILY Fenofibrate 160 Mg Tablet 160 Mg PO QHS Olanzapine 5 Mg Tablet 5 Mg PO DAILY@1400 5mg PO daily at 14:00 Methylphenidate Hcl 10 Mg Tablet 10 Mg PO BID@0900,1300 Seroquel (Quetiapine Fumarate) 100 Mg Tablet 100 Mg PO BID Prevident 5000 (Sodium Fluoride) 100 Ml Gel..ml. 1 Carlee DT BID Selenium Sulfide 180 Ml Shampoo 1 Carlee TP TWICE WEEKLY Lorazepam 1 Mg Tablet 1 Mg PO PRN BID PRN Acetaminophen 500 Mg Tablet 500 Mg PO PRN Q4HRS PRN Risperdal Consta (Risperidone Microspheres) 25 Mg/2 Ml Disp.syrin 25 Mg IM Q2WKS Phenytoin 125 Mg/5 Ml Oral.susp 300 Mg PO QHS Zyprexa (Olanzapine) 20 Mg Tablet 20 Mg PO QHS Atorvastatin Calcium 10 Mg Tablet 10 Mg PO QHS Zyprexa (Olanzapine) 5 Mg Tablet 5 Mg PO DAILY@1400 Clozapine 200 Mg Tablet 500 Mg PO QHS Clozapine 200 Mg Tablet 200 Mg PO DAILY Detrol La (Tolterodine Tartrate) 2 Mg Cap.er.24h 2 Mg PO BID Depakote Er (Divalproex Sodium) 500 Mg Tab.er.24h 500 Mg PO DAILY Depakote Er (Divalproex Sodium) 500 Mg Tab.er.24h 1,000 Mg PO QHS Jerome 3 1,000 Mg Softgel (Jerome-3 Fatty Acids/Fish Oil) 1 Each Capsule 1,000 Mg PO DAILY Thera-M Tablet (Multivits,Ca,Minerals/Iron/Fa) 1 Each Tablet 1 Tab PO DAILY Vitamin D3 (Cholecalciferol (Vitamin D3)) 1,000 Unit Tablet 2,000 Unit PO DAILY Olanzapine 10 Mg Tablet 10 Mg PO DAILY Miralax (Polyethylene Glycol 3350) 119 Gm Powder 17 Gm PO DAILY Levothyroxine Sodium 200 Mcg Tablet 200 Mcg PO DAILY06 Pantoprazole Sodium 40 Mg Tablet.dr 40 Mg PO DAILY I have reviewed the current psychotropics carefully including drug interactions. Risk benefit ratio favors no change other than as noted in my dictated progress note. Diagnosis: Problems: (1) Dementia in Alzheimer's disease with delusions (2) Impulse control disorder (3) Schizoaffective disorder, chronic condition with acute exacerbation (4) Borderline intellectual disability STEVEN AYALA MD Aug 31, 2017 20:49
[2017-09-01] MEDS: hydrOXYzine HCL 25 MG TABLET PO PRN (00:28)
[2017-09-01] MEDS: LEVOTHYROXINE 100 MCG TABLET PO SCH (05:41)
[2017-09-01 06:30] VITALS: BP 93/58
[2017-09-01 07:59] VITALS: BP 98/55
[2017-09-01 08:51] LABS: BASO % 1 % (0-3); EOS # 0.2 x10^3/uL (0.0-0.7); EOS % 4 % (0-3); HEMATOCRIT 39.1 % (39.0-53.0); HEMOGLOBIN 13.1 g/dL (13.0-17.5); LYMPH # 2.1 x10^3/uL (1.0-4.8); LYMPH % 39 % (24-48); MEAN CORPUSCULAR HEMOGLOBIN 31 pg (25-35); MEAN CORPUSCULAR HGB CONC 33 g/dL (31-37); MEAN CORPUSCULAR VOLUME 93 fL (79-100); MONO # 0.6 x10^3/uL (0.0-1.1); MONO % 12 % (0-9); NEUT # 2.4 x10^3uL (1.8-7.7); NEUT % 45 % (31-73); PLATELET COUNT 201 x10^3/uL (140-400); RED BLOOD COUNT 4.21 x10^6/uL (4.30-5.70); RED CELL DISTRIBUTION WIDTH 12.9 % (11.5-14.5); WHITE BLOOD COUNT 5.3 x10^3/uL (4.0-11.0)
[2017-09-01] MEDS: MAG HYDROX/AL HYDROX/SIMETH 30 ML ORAL.SUSP PO PRN (09:03)
[2017-09-01 09:05] LABS: ALBUMIN 2.9 g/dL (3.4-5.0); ALBUMIN/GLOBULIN RATIO 0.8 (1.0-1.7); ALK PHOS 81 U/L (46-116); ALT (SGPT) 32 U/L (16-63); ANION GAP 9 (6-14); AST (SGOT) 20 U/L (15-37); BLOOD UREA NITROGEN 14 mg/dL (8-26); BUN/CREATININE RATIO 16 (6-20); CALCIUM 8.9 mg/dL (8.5-10.1); CARBON DIOXIDE 27 mmol/L (21-32); CHLORIDE 104 mmol/L (98-107); CREATININE 0.9 mg/dL (0.7-1.3); GFR 87.9; GLUCOSE 127 mg/dL (70-99); POTASSIUM 4.2 mmol/L (3.5-5.1); SODIUM 140 mmol/L (136-145); TOTAL BILIRUBIN 0.2 mg/dL (0.2-1.0); TOTAL PROTEIN 6.5 g/dL (6.4-8.2)
[2017-09-01 09:09] LABS: VAL ACID 42 mcg/mL (50-100)
[2017-09-01] MEDS: traZODone 50 MG TABLET. PO SCH ×3 (09:13→17:47)
[2017-09-01] MEDS: busPIRone 5 MG TABLET. PO SCH ×3 (09:14→17:48)
[2017-09-01] MEDS: OXYBUTYNIN CHLORIDE 5 MG TABLET PO SCH ×3 (09:14→19:17)
[2017-09-01] MEDS: POLYETHYLENE GLYCOL 3350 17 GM PACKET. PO SCH (09:14)
[2017-09-01] MEDS: cloZAPine 100 MG TABLET PO SCH ×2 (09:14→19:18)
[2017-09-01] MEDS: QUEtiapine 50 MG TABLET. PO SCH ×3 (09:14→17:48)
[2017-09-01] MEDS: SERTRALINE 25 MG TABLET. PO SCH (09:14)
[2017-09-01] MEDS: VALPROATE ACID 250 MG/5 ML ORAL SOLUTION PO SCH ×4 (09:14→19:17)
--- NOTE | 2017-09-01 09:18 | PN ---
DATE: 08/30/2017 PSYCHIATRIC PROGRESS NOTE This is a late entry 08/30/2017, covers the elements not covered in my initial note 08/30/2017. I met with the patient evening of 08/30/2017. SUBJECTIVE: The patient tends to have some GI symptoms after taking the Depakote Sprinkles and this has been changed to liquid and he is tolerating this better. Absolute neutrophil count is unremarkable while on the Clozaril. He is much less labile, less aggressive, disruptive, less obsessive, less ____ at the nursing station, which is quite an improvement. REVIEW OF SYSTEMS: No CV, , pulmonary, eye, ENT system symptoms on review. Reliability varies. MENTAL STATUS EXAM: Oriented to himself and situation. Speech coherent, rapid at times. Abstraction fair, computation impaired, language function intact, attention span short. Mood and affect remain somewhat labile, but much improved. LABORATORY DATA: Reviewed. IMPRESSION: Schizoaffective disorder, bipolar type, mixed with psychotic features, in partial remission. PLAN: Continue psychotropics mentioned in my initial note. MAN Suleman AYALA MD DR: ADALBERTO/garry JOB#: [id number] / [id number]
[2017-09-01 16:18] VITALS: BP 106/57
[2017-09-01] MEDS ORDERED: METHYL SALICYLATE/MENTHOL TOPICAL OINTMENT 29GM TUBE. TP PRN (19:15)
[2017-09-01] MEDS: MIRTAZAPINE 7.5 MG TABLET. PO SCH (19:17)
[2017-09-01] MEDS: PHENYTOIN SODIUM EXTENDED 100 MG CAPSULE PO SCH (19:17)
[2017-09-01] MEDS: ATORVASTATIN CALCIUM 10 MG TABLET. PO SCH (19:18)
--- NOTE | 2017-09-01 20:39 | PN ---
DATE: 08/31/2017 This late entry of 08/31/2017 covers elements not covered in my initial note 08/31/2017. Met with the patient evening of 08/31/2017. SUBJECTIVE: The patient slept 6-1/4 hours previous evening. Per nursing report, he has been much more cooperative, less agitated, but somewhat more drowsy since Depakote Sprinkles were changed to the liquid. It is possible he is absorbing it better than the Sprinkles and we will check another valproic acid morning of 09/01/2017 to make sure level is therapeutic. REVIEW OF SYSTEMS: No CV, , pulmonary, eye, ENT system symptoms on review. MENTAL STATUS EXAM: Reasonably oriented. Speech coherent, still somewhat pressured. Abstraction fair, computation impaired, language function intact, attention span short. Mood and affect less labile. LABORATORY DATA: Reviewed. IMPRESSION: Schizoaffective disorder, bipolar type, mixed with psychotic features, in partial remission. PLAN: Continue psychotropics mentioned in my initial note and check valproic acid level 09/01/2017. MAN Suleman AYALA MD DR: ADALBERTO/garry JOB#: [id number] / [id number]
--- NOTE | 2017-09-01 20:48 | PDOC ---
Exam Note: Chad Note: Please also refer to the separate dictated note~for this date of service dictated separately.~Patient seen individually. Discussed the patient with Nursing staff reviewed the chart.~Reviewed interim history and current functioning. Reviewed vital signs,~Labs/ Radiology~and current medications noted below. Continue current treatment with the changes noted in the dictated addendum note Assessment: Vital Signs: Vital Signs Date Time Temp Pulse Resp B/P (MAP) Pulse Ox O2 Delivery O2 Flow Rate FiO2 09/01/17 16:18 97.7 78 20 106/57 (73) 96 09/01/17 06:30 Room Air I&O Intake and Output 09/01/17 07:00 Intake Total 1800 ml Balance 1800 ml Intake Oral 1800 ml # Voids 2 Labs: Laboratory Tests Test 09/01/17 08:43 White Blood Count 5.3 x10^3/uL (4.0-11.0) Red Blood Count 4.21 x10^6/uL (4.30-5.70) L Hemoglobin 13.1 g/dL (13.0-17.5) Hematocrit 39.1 % (39.0-53.0) Mean Corpuscular Volume 93 fL (79-100) Mean Corpuscular Hemoglobin 31 pg (25-35) Mean Corpuscular Hemoglobin Concent 33 g/dL (31-37) Red Cell Distribution Width 12.9 % (11.5-14.5) Platelet Count 201 x10^3/uL (140-400) Neutrophils (%) (Auto) 45 % (31-73) Lymphocytes (%) (Auto) 39 % (24-48) Monocytes (%) (Auto) 12 % (0-9) H Eosinophils (%) (Auto) 4 % (0-3) H Basophils (%) (Auto) 1 % (0-3) Neutrophils # (Auto) 2.4 x10^3uL (1.8-7.7) Lymphocytes # (Auto) 2.1 x10^3/uL (1.0-4.8) Monocytes # (Auto) 0.6 x10^3/uL (0.0-1.1) Eosinophils # (Auto) 0.2 x10^3/uL (0.0-0.7) Basophils # (Auto) 0.0 x10^3/uL (0.0-0.2) Sodium Level 140 mmol/L (136-145) Potassium Level 4.2 mmol/L (3.5-5.1) Chloride Level 104 mmol/L (98-107) Carbon Dioxide Level 27 mmol/L (21-32) Anion Gap 9 (6-14) Blood Urea Nitrogen 14 mg/dL (8-26) Creatinine 0.9 mg/dL (0.7-1.3) Estimated GFR (Cockcroft-Gault) 87.9 BUN/Creatinine Ratio 16 (6-20) Glucose Level 127 mg/dL (70-99) H Calcium Level 8.9 mg/dL (8.5-10.1) Total Bilirubin 0.2 mg/dL (0.2-1.0) Aspartate Amino Transferase (AST) 20 U/L (15-37) Alanine Aminotransferase (ALT) 32 U/L (16-63) Alkaline Phosphatase 81 U/L (46-116) Total Protein 6.5 g/dL (6.4-8.2) Albumin 2.9 g/dL (3.4-5.0) L Albumin/Globulin Ratio 0.8 (1.0-1.7) L Valproic Acid Level 42 mcg/mL (50-100) L Valproic Acid Last Dose Date 08/31/2017 Valproic Acid Last Dose Time 2100 Current Medications: Meds: Current Medications Valproic Acid (Depakene) 500 mg STAT PO Last administered on 07/30/17at 21:21; Start 07/30/17 at 20:49; Stop 08/01/17 at 15:23; Status DC Divalproex Sodium (Depakote Er) 1,000 mg QHS PO ; Start 07/31/17 at 21:00; Stop 07/31/17 at 21:00; Status DC Divalproex Sodium (Depakote Er) 500 mg DAILY PO ; Start 07/31/17 at 09:00; Stop 07/31/17 at 09:00; Status DC Lorazepam (Ativan) 1 mg PRN BID PRN PO ANXIETY / AGITATION Last administered on 08/28/17at 16:22; Start 07/30/17 at 23:00 Olanzapine (ZyPREXA) 10 mg DAILY PO ; Start 07/31/17 at 09:00; Stop 07/31/17 at 09:00; Status DC Olanzapine (ZyPREXA) 5 mg DAILY@1400 PO ; Start 07/31/17 at 14:00; Stop at 14:00; Status DC Risperidone (RisperDAL CONSTA) 25 mg Q2WKS IM ; Start 08/13/17 at 09:00; Status UNV Clozapine (Clozaril) 200 mg DAILY PO Last administered on 09/01/17at 09:14; Start 07/31/17 at 09:00 Clozapine (Clozaril) 500 mg QHS PO Last administered on 09/01/17 19:18; Start 07/31/17 at 21:00 Olanzapine (ZyPREXA) 20 mg QHS PO Last administered on 07/31/17 20:28; Start 07/31/17 at 21:00; Stop 08/01/17 at 09:51; Status DC Atorvastatin Calcium (Lipitor) 10 mg QHS PO ; Start 07/31/17 at 21:00; Stop 03/10 at 21:00; Status DC Phenytoin Sodium (Dilantin) 300 mg QHS PO Last administered on 09/01/17at 19:17 ; Start 07/31/17 at 21:00 Non-Formulary Medication (Sodium Fluoride (Prevident 5000)) 1 carlee BID DT ; Start 07/31/17 at 09:00; Stop 07/31/17 at 09:00; Status DC Oxybutynin Chloride (Ditropan) 5 mg [id number] PO Last administered on 09/01/17 19 :17; Start 07/31/17 at 09:00 Quetiapine Fumarate (SEROquel) 100 mg BID PO Last administered on 08/08/17at 20: 51; Start 07/31/17 at 09:00; Stop 08/09/17 at 18:03; Status DC Acetaminophen (Tylenol) 500 mg PRN Q4HRS PRN PO PAIN Last administered on 13:21; Start 07/31/17 at 07:15 Levothyroxine Sodium (Synthroid) 200 mcg DAILY06 PO Last administered on 05:41; Start 07/31/17 at 07:15 Fish Oil (Fish Oil) 1,000 mg DAILY PO Last administered on 07/31/17at 09:36; Start 07/31/17 at 09:00; Stop 08/01/17 at 09:51; Status DC Selenium Sulfide (Selsun) 1 carlee TWICEWEEKLY TP ; Start 07/31/17 at 07:30; Stop 07/31/17 at 14:29; Status DC Divalproex Sodium (Depakote Er) 1,000 mg QHS PO Last administered on 07/31/17at 20:26; Start 07/31/17 at 21:00; Stop 08/01/17 at 18:29; Status DC Atorvastatin Calcium (Lipitor) 10 mg QHS PO Last administered on 09/01/17at 19: 18; Start 07/31/17 at 21:00 Divalproex Sodium (Depakote Er) 500 mg DAILY PO Last administered on 08/01/17at 09:10; Start 07/31/17 at 09:00; Stop 08/01/17 at 09:51; Status DC Olanzapine (ZyPREXA) 10 mg DAILY PO Last administered on 08/01/17at 09:30; Start 07/31/17 at 09:00; Stop 08/01/17 at 09:51; Status DC Olanzapine (ZyPREXA) 5 mg DAILY@1400 PO Last administered on 07/31/17at 15:07; Start 07/31/17 at 14:00; Stop 08/01/17 at 09:51; Status DC Selenium Sulfide (Selsun) 1 carlee TWICEWEEKLY TP ; Start 07/31/17 at 14:29 Divalproex Sodium (Depakote Er) 750 mg DAILY PO ; Start 08/02/17 at 09:00; Stop 08/02/17 at 09:00; Status DC Divalproex Sodium (Depakote Sprinkles) 750 mg BID PO Last administered on at 09:21; Start 08/01/17 at 21:00; Stop 08/04/17 at 14:28; Status DC Al Hydroxide/Mg Hydroxide (Mylanta Plus Xs) 30 ml PRN AFTMEAL PRN PO DYSPEPSIA Last administered on 09/01/17at 09:03; Start 08/03/17 at 12:00 Magnesium Hydroxide (Milk Of Magnesia) 2,400 mg PRN DAILY PRN PO CONSTIPATION Last administered on 08/14/17at 20:28; Start 08/03/17 at 17:00 Divalproex Sodium (Depakote Sprinkles) 1,000 mg BID PO Last administered on at 07:51; Start 08/04/17 at 21:00; Stop 08/07/17 at 18:35; Status DC Polyethylene Glycol (miraLAX) 17 gm DAILY PO Last administered on 09/01/17at 09: 14; Start 08/05/17 at 09:00 Trazodone HCl (Desyrel) 100 mg QHS PO Last administered on 08/18/17at 19:34; Start 08/06/17 at 21:00; Stop 08/19/17 at 18:44; Status DC Trazodone HCl (Desyrel) 100 mg PRN QHS PRN PO INSOMNIA Last administered on at 21:05; Start 08/06/17 at 19:00; Stop 08/19/17 at 18:44; Status DC Divalproex Sodium (Depakote Sprinkles) 1,250 mg BID PO Last administered on at 20:51; Start 08/07/17 at 21:00; Stop 08/09/17 at 18:31; Status DC Quetiapine Fumarate (SEROquel) 50 mg BID PO Last administered on 08/19/17at 09: 19; Start 08/09/17 at 21:00; Stop 08/19/17 at 10:47; Status DC Divalproex Sodium (Depakote Sprinkles) 1,500 mg BID PO Last administered on at 08:25; Start 08/09/17 at 21:00; Stop 08/12/17 at 10:53; Status DC Trazodone HCl (Desyrel) 25 mg TID@0900,1300,1700 PO Last administered on at 17:10; Start 08/12/17 at 09:00; Stop 08/13/17 at 18:00; Status DC Divalproex Sodium (Depakote Sprinkles) 1,750 mg BID PO Last administered on at 09:32; Start 08/12/17 at 21:00; Stop 08/16/17 at 18:48; Status DC Trazodone HCl (Desyrel) 25 mg BID@1300,1700 PO Last administered on 09/01/17 17:47; Start 08/14/17 at 13:00 Trazodone HCl (Desyrel) 50 mg DAILY PO Last administered on 09/01/17 09:13; Start 08/14/17 at 09:00 Trazodone HCl (Desyrel) 50 mg 1X ONCE PO Last administered on 08/13/17 18:29 ; Start 08/13/17 at 18:30; Stop 08/13/17 at 18:31; Status DC Sertraline HCl (Zoloft) 25 mg DAILY PO Last administered on 08/17/17 07:47; Start 08/15/17 at 09:00; Stop 08/17/17 at 11:00; Status DC Sertraline HCl (Zoloft) 50 mg DAILY PO Last administered on 09/01/17 09:14; Start 08/18/17 at 09:00 Divalproex Sodium (Depakote Sprinkles) 2,000 mg BID PO Last administered on 08/23 09:05; Start 08/16/17 at 21:00; Stop 08/23/17 at 18:02; Status DC Buspirone HCl (Buspar) 5 mg TID@0900,1300,1700 PO Last administered on 17:48; Start 08/17/17 at 09:00 Quetiapine Fumarate (SEROquel) 50 mg TID@0900,1300,1700 PO Last administered on 09/01/17 17:48; Start 08/19/17 at 13:00 Mirtazapine (Remeron) 7.5 mg QHS PO Last administered on 09/01/17 19:17; Start 08/19/17 at 21:00 Hydroxyzine HCl (Atarax) 50 mg PRN QHS PRN PO INSOMNIA, MAY REPEAT X1 Last administered on 09/01/17 00:28; Start 08/20/17 at 22:30 Divalproex Sodium (Depakote Sprinkles) 2,250 mg BID PO Last administered on 08/26 09:06; Start 08/23/17 at 21:00; Stop 08/26/17 at 10:43; Status DC Divalproex Sodium (Depakote Sprinkles) 2,500 mg BID PO Last administered on 08/28at 19:42; Start 08/26/17 at 21:00; Stop 08/28/17 at 22:15; Status DC Iohexol (Omnipaque 300 Mg/ml) 75 ml 1X ONCE IV Last administered on 08/27/17at 22:59; Start 08/27/17 at 19:00; Stop 08/27/17 at 19:04; Status DC Divalproex Sodium (Depakote Sprinkles) 1,250 mg QID PO Last administered on 08/29at 17:13; Start 08/29/17 at 09:00; Stop 08/29/17 at 17:51; Status DC Divalproex Sodium (Depakote Sprinkles) 1,250 mg BID@0900,1200 PO ; Start at 09:00; Stop 08/30/17 at 09:11; Status DC Divalproex Sodium (Depakote Sprinkles) 1,375 mg BID@1700,2100 PO Last administered on 08/29/17at 19:48; Start 08/29/17 at 21:00; Stop 08/30/17 at 09:11; Status DC Valproic Acid (Depakene) 1,375 mg BID@1700,2100 PO Last administered on at 19:17; Start 08/30/17 at 17:00 Valproic Acid (Depakene) 1,250 mg BID@0900,1200 PO Last administered on at 12:00; Start 08/30/17 at 09:15 Multi-Ingredient Ointment (Analgesic [place]) 1 carlee PRN QID PRN TP MUSCLE PAIN Last administered on 09/01/17at 19:35; Start 09/01/17 at 19:15 Active Scripts Active Reported Ibuprofen 400 Mg Tablet 400 Mg PO PRN Q4HRS PRN MDD 1200mg/24hrs Lorazepam 2 Mg/1 Ml Vial 1 Mg IM BID PRN Abilify Maintena (Aripiprazole) 400 Mg Suser.vial 400 Mg IM Q4WK Next dose due 08/26/17 Paroxetine Hcl 20 Mg Tablet 10 Mg PO DAILY Abilify (Aripiprazole) 5 Mg Tablet 5 Mg PO DAILY Fenofibrate 160 Mg Tablet 160 Mg PO QHS Olanzapine 5 Mg Tablet 5 Mg PO DAILY@1400 5mg PO daily at 14:00 Methylphenidate Hcl 10 Mg Tablet 10 Mg PO BID@0900,1300 Seroquel (Quetiapine Fumarate) 100 Mg Tablet 100 Mg PO BID Prevident 5000 (Sodium Fluoride) 100 Ml Gel..ml. 1 Carlee DT BID Selenium Sulfide 180 Ml Shampoo 1 Carlee TP TWICE WEEKLY Lorazepam 1 Mg Tablet 1 Mg PO PRN BID PRN Acetaminophen 500 Mg Tablet 500 Mg PO PRN Q4HRS PRN Risperdal Consta (Risperidone Microspheres) 25 Mg/2 Ml Disp.syrin 25 Mg IM Q2WKS Phenytoin 125 Mg/5 Ml Oral.susp 300 Mg PO QHS Zyprexa (Olanzapine) 20 Mg Tablet 20 Mg PO QHS Atorvastatin Calcium 10 Mg Tablet 10 Mg PO QHS Zyprexa (Olanzapine) 5 Mg Tablet 5 Mg PO DAILY@1400 Clozapine 200 Mg Tablet 500 Mg PO QHS Clozapine 200 Mg Tablet 200 Mg PO DAILY Detrol La (Tolterodine Tartrate) 2 Mg Cap.er.24h 2 Mg PO BID Depakote Er (Divalproex Sodium) 500 Mg Tab.er.24h 500 Mg PO DAILY Depakote Er (Divalproex Sodium) 500 Mg Tab.er.24h 1,000 Mg PO QHS [place] 3 1,000 Mg Softgel ([place]-3 Fatty Acids/Fish Oil) 1 Each Capsule 1,000 Mg PO DAILY Thera-M Tablet (Multivits,Ca,Minerals/Iron/Fa) 1 Each Tablet 1 Tab PO DAILY Vitamin D3 (Cholecalciferol (Vitamin D3)) 1,000 Unit Tablet 2,000 Unit PO DAILY Olanzapine 10 Mg Tablet 10 Mg PO DAILY Miralax (Polyethylene Glycol 3350) 119 Gm Powder 17 Gm PO DAILY Levothyroxine Sodium 200 Mcg Tablet 200 Mcg PO DAILY06 Pantoprazole Sodium 40 Mg Tablet.dr 40 Mg PO DAILY I have reviewed the current psychotropics carefully including drug interactions. Risk benefit ratio favors no change other than as noted in my dictated progress note. Diagnosis: Problems: (1) Dementia in Alzheimer's disease with delusions (2) Impulse control disorder (3) Schizoaffective disorder, chronic condition with acute exacerbation (4) Borderline intellectual disability STEVEN AYALA MD Sep 01, 2017 20:48
[2017-09-02] MEDS: LEVOTHYROXINE 100 MCG TABLET PO SCH (06:01)
[2017-09-02 06:05] VITALS: BP 112/69
[2017-09-02] MEDS: traZODone 50 MG TABLET. PO SCH ×4 (08:04→17:05)
[2017-09-02] MEDS: OXYBUTYNIN CHLORIDE 5 MG TABLET PO SCH ×4 (08:04→19:54)
[2017-09-02] MEDS: cloZAPine 100 MG TABLET PO SCH ×3 (08:04→19:56)
[2017-09-02] MEDS: SERTRALINE 25 MG TABLET. PO SCH ×2 (08:05→08:52)
[2017-09-02] MEDS: busPIRone 5 MG TABLET. PO SCH ×4 (08:05→17:05)
[2017-09-02] MEDS: QUEtiapine 50 MG TABLET. PO SCH ×4 (08:05→17:05)
[2017-09-02] MEDS: VALPROATE ACID 250 MG/5 ML ORAL SOLUTION PO SCH ×5 (08:06→19:55)
[2017-09-02] MEDS: POLYETHYLENE GLYCOL 3350 17 GM PACKET. PO SCH ×2 (08:06→08:52)
[2017-09-02 15:32] VITALS: BP_SYST 109; BP_SYST 120; BP_DIAS 52; BP_DIAS 70
[2017-09-02] MEDS: ATORVASTATIN CALCIUM 10 MG TABLET. PO SCH (19:54)
[2017-09-02] MEDS: PHENYTOIN SODIUM EXTENDED 100 MG CAPSULE PO SCH (19:54)
[2017-09-02] MEDS: MIRTAZAPINE 7.5 MG TABLET. PO SCH (19:54)
--- NOTE | 2017-09-02 20:50 | PDOC ---
Exam Note: Chad Note: Please also refer to the separate dictated note~for this date of service dictated separately.~Patient seen individually. Discussed the patient with Nursing staff reviewed the chart.~Reviewed interim history and current functioning. Reviewed vital signs,~Labs/ Radiology~and current medications noted below. Continue current treatment with the changes noted in the dictated addendum note Assessment: Vital Signs: Vital Signs Date Time Temp Pulse Resp B/P (MAP) Pulse Ox O2 Delivery O2 Flow Rate FiO2 09/02/17 15:32 97.8 89 22 109/52 (71) 100 09/01/17 06:30 Room Air I&O Intake and Output 09/02/17 07:00 Intake Total 1560 ml Balance 1560 ml Intake Oral 1560 ml # Voids 1 # Bowel Movements 1 Current Medications: Meds: Current Medications Valproic Acid (Depakene) 500 mg STAT PO Last administered on 07/30/17at 21:21; Start 07/30/17 at 20:49; Stop 08/01/17 at 15:23; Status DC Divalproex Sodium (Depakote Er) 1,000 mg QHS PO ; Start 07/31/17 at 21:00; Stop 07/31/17 at 21:00; Status DC Divalproex Sodium (Depakote Er) 500 mg DAILY PO ; Start 07/31/17 at 09:00; Stop 07/31/17 at 09:00; Status DC Lorazepam (Ativan) 1 mg PRN BID PRN PO ANXIETY / AGITATION Last administered on 08/28/17at 16:22; Start 07/30/17 at 23:00 Olanzapine (ZyPREXA) 10 mg DAILY PO ; Start 07/31/17 at 09:00; Stop 07/31/17 at 09:00; Status DC Olanzapine (ZyPREXA) 5 mg DAILY@1400 PO ; Start 07/31/17 at 14:00; Stop at 14:00; Status DC Risperidone (RisperDAL CONSTA) 25 mg Q2WKS IM ; Start 08/13/17 at 09:00; Status UNV Clozapine (Clozaril) 200 mg DAILY PO Last administered on 09/01/17at 09:14; Start 07/31/17 at 09:00 Clozapine (Clozaril) 500 mg QHS PO Last administered on 4/12/18at 19:56; Start 07/31/17 at 21:00 Olanzapine (ZyPREXA) 20 mg QHS PO Last administered on 07/31/17 20:28; Start 07/31/17 at 21:00; Stop 08/01/17 at 09:51; Status DC Atorvastatin Calcium (Lipitor) 10 mg QHS PO ; Start 07/31/17 at 21:00; Stop 03/10 at 21:00; Status DC Phenytoin Sodium (Dilantin) 300 mg QHS PO Last administered on 09/02/17at 19:54 ; Start 07/31/17 at 21:00 Non-Formulary Medication (Sodium Fluoride (Prevident 5000)) 1 carlee BID DT ; Start 07/31/17 at 09:00; Stop 07/31/17 at 09:00; Status DC Oxybutynin Chloride (Ditropan) 5 mg [id number] PO Last administered on 09/02/17 19 :54; Start 07/31/17 at 09:00 Quetiapine Fumarate (SEROquel) 100 mg BID PO Last administered on 08/08/17at 20: 51; Start 07/31/17 at 09:00; Stop 08/09/17 at 18:03; Status DC Acetaminophen (Tylenol) 500 mg PRN Q4HRS PRN PO PAIN Last administered on 13:21; Start 07/31/17 at 07:15 Levothyroxine Sodium (Synthroid) 200 mcg DAILY06 PO Last administered on at 06:01; Start 07/31/17 at 07:15 Fish Oil (Fish Oil) 1,000 mg DAILY PO Last administered on 07/31/17at 09:36; Start 07/31/17 at 09:00; Stop 08/01/17 at 09:51; Status DC Selenium Sulfide (Selsun) 1 carlee TWICEWEEKLY TP ; Start 07/31/17 at 07:30; Stop 07/31/17 at 14:29; Status DC Divalproex Sodium (Depakote Er) 1,000 mg QHS PO Last administered on 07/31/17at 20:26; Start 07/31/17 at 21:00; Stop 08/01/17 at 18:29; Status DC Atorvastatin Calcium (Lipitor) 10 mg QHS PO Last administered on 09/02/17 19: 54; Start 07/31/17 at 21:00 Divalproex Sodium (Depakote Er) 500 mg DAILY PO Last administered on 08/01/17at 09:10; Start 07/31/17 at 09:00; Stop 08/01/17 at 09:51; Status DC Olanzapine (ZyPREXA) 10 mg DAILY PO Last administered on 08/01/17 09:30; Start 07/31/17 at 09:00; Stop 08/01/17 at 09:51; Status DC Olanzapine (ZyPREXA) 5 mg DAILY@1400 PO Last administered on 07/31/17at 15:07; Start 07/31/17 at 14:00; Stop 08/01/17 at 09:51; Status DC Selenium Sulfide (Selsun) 1 carlee TWICEWEEKLY TP ; Start 07/31/17 at 14:29 Divalproex Sodium (Depakote Er) 750 mg DAILY PO ; Start 08/02/17 at 09:00; Stop 08/02/17 at 09:00; Status DC Divalproex Sodium (Depakote Sprinkles) 750 mg BID PO Last administered on 09:21; Start 08/01/17 at 21:00; Stop 08/04/17 at 14:28; Status DC Al Hydroxide/Mg Hydroxide (Mylanta Plus Xs) 30 ml PRN AFTMEAL PRN PO DYSPEPSIA Last administered on 09/01/17 09:03; Start 08/03/17 at 12:00 Magnesium Hydroxide (Milk Of Magnesia) 2,400 mg PRN DAILY PRN PO CONSTIPATION Last administered on 08/14/17at 20:28; Start 08/03/17 at 17:00 Divalproex Sodium (Depakote Sprinkles) 1,000 mg BID PO Last administered on at 07:51; Start 08/04/17 at 21:00; Stop 08/07/17 at 18:35; Status DC Polyethylene Glycol (miraLAX) 17 gm DAILY PO Last administered on 09/01/17 09: 14; Start 08/05/17 at 09:00 Trazodone HCl (Desyrel) 100 mg QHS PO Last administered on 08/18/17at 19:34; Start 08/06/17 at 21:00; Stop 08/19/17 at 18:44; Status DC Trazodone HCl (Desyrel) 100 mg PRN QHS PRN PO INSOMNIA Last administered on at 21:05; Start 08/06/17 at 19:00; Stop 08/19/17 at 18:44; Status DC Divalproex Sodium (Depakote Sprinkles) 1,250 mg BID PO Last administered on at 20:51; Start 08/07/17 at 21:00; Stop 08/09/17 at 18:31; Status DC Quetiapine Fumarate (SEROquel) 50 mg BID PO Last administered on 08/19/17at 09: 19; Start 08/09/17 at 21:00; Stop 08/19/17 at 10:47; Status DC Divalproex Sodium (Depakote Sprinkles) 1,500 mg BID PO Last administered on at 08:25; Start 08/09/17 at 21:00; Stop 08/12/17 at 10:53; Status DC Trazodone HCl (Desyrel) 25 mg TID@0900,1300,1700 PO Last administered on at 17:10; Start 08/12/17 at 09:00; Stop 08/13/17 at 18:00; Status DC Divalproex Sodium (Depakote Sprinkles) 1,750 mg BID PO Last administered on at 09:32; Start 08/12/17 at 21:00; Stop 08/16/17 at 18:48; Status DC Trazodone HCl (Desyrel) 25 mg BID@1300,1700 PO Last administered on 09/02/17at 17:05; Start 08/14/17 at 13:00 Trazodone HCl (Desyrel) 50 mg DAILY PO Last administered on 09/01/17at 09:13; Start 08/14/17 at 09:00 Trazodone HCl (Desyrel) 50 mg 1X ONCE PO Last administered on 08/13/17at 18:29 ; Start 08/13/17 at 18:30; Stop 08/13/17 at 18:31; Status DC Sertraline HCl (Zoloft) 25 mg DAILY PO Last administered on 08/17/17at 07:47; Start 08/15/17 at 09:00; Stop 08/17/17 at 11:00; Status DC Sertraline HCl (Zoloft) 50 mg DAILY PO Last administered on 09/01/17at 09:14; Start 08/18/17 at 09:00 Divalproex Sodium (Depakote Sprinkles) 2,000 mg BID PO Last administered on 08/23at 09:05; Start 08/16/17 at 21:00; Stop 08/23/17 at 18:02; Status DC Buspirone HCl (Buspar) 5 mg TID@0900,1300,1700 PO Last administered on at 17:05; Start 08/17/17 at 09:00 Quetiapine Fumarate (SEROquel) 50 mg TID@0900,1300,1700 PO Last administered on 09/02/17at 17:05; Start 08/19/17 at 13:00 Mirtazapine (Remeron) 7.5 mg QHS PO Last administered on 09/02/17 19:54; Start 08/19/17 at 21:00 Hydroxyzine HCl (Atarax) 50 mg PRN QHS PRN PO INSOMNIA, MAY REPEAT X1 Last administered on 09/01/17at 00:28; Start 08/20/17 at 22:30 Divalproex Sodium (Depakote Sprinkles) 2,250 mg BID PO Last administered on 08/26 09:06; Start 08/23/17 at 21:00; Stop 08/26/17 at 10:43; Status DC Divalproex Sodium (Depakote Sprinkles) 2,500 mg BID PO Last administered on 08/28at 19:42; Start 08/26/17 at 21:00; Stop 08/28/17 at 22:15; Status DC Iohexol (Omnipaque 300 Mg/ml) 75 ml 1X ONCE IV Last administered on 08/27/17at 22:59; Start 08/27/17 at 19:00; Stop 08/27/17 at 19:04; Status DC Divalproex Sodium (Depakote Sprinkles) 1,250 mg QID PO Last administered on 08/29at 17:13; Start 08/29/17 at 09:00; Stop 08/29/17 at 17:51; Status DC Divalproex Sodium (Depakote Sprinkles) 1,250 mg BID@0900,1200 PO ; Start at 09:00; Stop 08/30/17 at 09:11; Status DC Divalproex Sodium (Depakote Sprinkles) 1,375 mg BID@1700,2100 PO Last administered on 08/29/17at 19:48; Start 08/29/17 at 21:00; Stop 08/30/17 at 09:11; Status DC Valproic Acid (Depakene) 1,375 mg BID@1700,2100 PO Last administered on at 19:55; Start 08/30/17 at 17:00 Valproic Acid (Depakene) 1,250 mg BID@0900,1200 PO Last administered on at 11:43; Start 08/30/17 at 09:15 Multi-Ingredient Ointment (Analgesic [place]) 1 carlee PRN QID PRN TP MUSCLE PAIN Last administered on 09/01/17at 19:35; Start 09/01/17 at 19:15 Active Scripts Active Reported Ibuprofen 400 Mg Tablet 400 Mg PO PRN Q4HRS PRN MDD 1200mg/24hrs Lorazepam 2 Mg/1 Ml Vial 1 Mg IM BID PRN Abilify Maintena (Aripiprazole) 400 Mg Suser.vial 400 Mg IM Q4WK Next dose due 08/26/17 Paroxetine Hcl 20 Mg Tablet 10 Mg PO DAILY Abilify (Aripiprazole) 5 Mg Tablet 5 Mg PO DAILY Fenofibrate 160 Mg Tablet 160 Mg PO QHS Olanzapine 5 Mg Tablet 5 Mg PO DAILY@1400 5mg PO daily at 14:00 Methylphenidate Hcl 10 Mg Tablet 10 Mg PO BID@0900,1300 Seroquel (Quetiapine Fumarate) 100 Mg Tablet 100 Mg PO BID Prevident 5000 (Sodium Fluoride) 100 Ml Gel..ml. 1 Carlee DT BID Selenium Sulfide 180 Ml Shampoo 1 Carlee TP TWICE WEEKLY Lorazepam 1 Mg Tablet 1 Mg PO PRN BID PRN Acetaminophen 500 Mg Tablet 500 Mg PO PRN Q4HRS PRN Risperdal Consta (Risperidone Microspheres) 25 Mg/2 Ml Disp.syrin 25 Mg IM Q2WKS Phenytoin 125 Mg/5 Ml Oral.susp 300 Mg PO QHS Zyprexa (Olanzapine) 20 Mg Tablet 20 Mg PO QHS Atorvastatin Calcium 10 Mg Tablet 10 Mg PO QHS Zyprexa (Olanzapine) 5 Mg Tablet 5 Mg PO DAILY@1400 Clozapine 200 Mg Tablet 500 Mg PO QHS Clozapine 200 Mg Tablet 200 Mg PO DAILY Detrol La (Tolterodine Tartrate) 2 Mg Cap.er.24h 2 Mg PO BID Depakote Er (Divalproex Sodium) 500 Mg Tab.er.24h 500 Mg PO DAILY Depakote Er (Divalproex Sodium) 500 Mg Tab.er.24h 1,000 Mg PO QHS [place] 3 1,000 Mg Softgel ([place]-3 Fatty Acids/Fish Oil) 1 Each Capsule 1,000 Mg PO DAILY Thera-M Tablet (Multivits,Ca,Minerals/Iron/Fa) 1 Each Tablet 1 Tab PO DAILY Vitamin D3 (Cholecalciferol (Vitamin D3)) 1,000 Unit Tablet 2,000 Unit PO DAILY Olanzapine 10 Mg Tablet 10 Mg PO DAILY Miralax (Polyethylene Glycol 3350) 119 Gm Powder 17 Gm PO DAILY Levothyroxine Sodium 200 Mcg Tablet 200 Mcg PO DAILY06 Pantoprazole Sodium 40 Mg Tablet.dr 40 Mg PO DAILY I have reviewed the current psychotropics carefully including drug interactions. Risk benefit ratio favors no change other than as noted in my dictated progress note. Diagnosis: Problems: (1) Dementia in Alzheimer's disease with delusions (2) Impulse control disorder (3) Schizoaffective disorder, chronic condition with acute exacerbation (4) Borderline intellectual disability STEVEN AYALA MD Sep 02, 2017 20:50
[2017-09-03] MEDS: LEVOTHYROXINE 100 MCG TABLET PO SCH (06:03)
[2017-09-03 06:35] VITALS: BP 107/51
[2017-09-03] MEDS: QUEtiapine 50 MG TABLET. PO SCH ×3 (08:06→17:00)
[2017-09-03] MEDS: POLYETHYLENE GLYCOL 3350 17 GM PACKET. PO SCH (08:06)
[2017-09-03] MEDS: SERTRALINE 25 MG TABLET. PO SCH (08:06)
[2017-09-03] MEDS: VALPROATE ACID 250 MG/5 ML ORAL SOLUTION PO SCH ×4 (08:06→20:00)
[2017-09-03] MEDS: busPIRone 5 MG TABLET. PO SCH ×3 (08:06→17:00)
[2017-09-03] MEDS: cloZAPine 100 MG TABLET PO SCH ×2 (08:07→19:59)
[2017-09-03] MEDS: OXYBUTYNIN CHLORIDE 5 MG TABLET PO SCH ×3 (08:07→19:59)
[2017-09-03] MEDS: traZODone 50 MG TABLET. PO SCH ×3 (08:07→17:00)
[2017-09-03 16:12] VITALS: BP 105/55
[2017-09-03] MEDS: PHENYTOIN SODIUM EXTENDED 100 MG CAPSULE PO SCH (19:59)
[2017-09-03] MEDS: MIRTAZAPINE 7.5 MG TABLET. PO SCH (19:59)
[2017-09-03] MEDS: ATORVASTATIN CALCIUM 10 MG TABLET. PO SCH (20:00)
--- NOTE | 2017-09-03 20:46 | PDOC ---
Exam Note: Chad Note: Please also refer to the separate dictated note~for this date of service dictated separately.~Patient seen individually. Discussed the patient with Nursing staff reviewed the chart.~Reviewed interim history and current functioning. Reviewed vital signs,~Labs/ Radiology~and current medications noted below. Continue current treatment with the changes noted in the dictated addendum note Assessment: Vital Signs: Vital Signs Date Time Temp Pulse Resp B/P (MAP) Pulse Ox O2 Delivery O2 Flow Rate FiO2 09/03/17 16:12 97.9 78 18 105/55 (72) 99 09/01/17 06:30 Room Air I&O Intake and Output 09/03/17 07:00 Intake Total 1380 ml Balance 1380 ml Intake Oral 1380 ml # Bowel Movements 1 Current Medications: Meds: Current Medications Valproic Acid (Depakene) 500 mg STAT PO Last administered on 07/30/17at 21:21; Start 07/30/17 at 20:49; Stop 08/01/17 at 15:23; Status DC Divalproex Sodium (Depakote Er) 1,000 mg QHS PO ; Start 07/31/17 at 21:00; Stop 07/31/17 at 21:00; Status DC Divalproex Sodium (Depakote Er) 500 mg DAILY PO ; Start 07/31/17 at 09:00; Stop 07/31/17 at 09:00; Status DC Lorazepam (Ativan) 1 mg PRN BID PRN PO ANXIETY / AGITATION Last administered on 08/28/17at 16:22; Start 07/30/17 at 23:00 Olanzapine (ZyPREXA) 10 mg DAILY PO ; Start 07/31/17 at 09:00; Stop 07/31/17 at 09:00; Status DC Olanzapine (ZyPREXA) 5 mg DAILY@1400 PO ; Start 07/31/17 at 14:00; Stop at 14:00; Status DC Risperidone (RisperDAL CONSTA) 25 mg Q2WKS IM ; Start 08/13/17 at 09:00; Status UNV Clozapine (Clozaril) 200 mg DAILY PO Last administered on 09/03/17at 08:07; Start 07/31/17 at 09:00 Clozapine (Clozaril) 500 mg QHS PO Last administered on 09/03/17at 19:59; Start 07/31/17 at 21:00 Olanzapine (ZyPREXA) 20 mg QHS PO Last administered on 07/31/17 20:28; Start 07/31/17 at 21:00; Stop 08/01/17 at 09:51; Status DC Atorvastatin Calcium (Lipitor) 10 mg QHS PO ; Start 07/31/17 at 21:00; Stop 03/10 at 21:00; Status DC Phenytoin Sodium (Dilantin) 300 mg QHS PO Last administered on 09/03/17at 19:59 ; Start 07/31/17 at 21:00 Non-Formulary Medication (Sodium Fluoride (Prevident 5000)) 1 carlee BID DT ; Start 07/31/17 at 09:00; Stop 07/31/17 at 09:00; Status DC Oxybutynin Chloride (Ditropan) 5 mg [id number] PO Last administered on 09/03/17 19 :59; Start 07/31/17 at 09:00 Quetiapine Fumarate (SEROquel) 100 mg BID PO Last administered on 08/08/17at 20: 51; Start 07/31/17 at 09:00; Stop 08/09/17 at 18:03; Status DC Acetaminophen (Tylenol) 500 mg PRN Q4HRS PRN PO PAIN Last administered on 13:21; Start 07/31/17 at 07:15 Levothyroxine Sodium (Synthroid) 200 mcg DAILY06 PO Last administered on at 06:03; Start 07/31/17 at 07:15 Fish Oil (Fish Oil) 1,000 mg DAILY PO Last administered on 07/31/17at 09:36; Start 07/31/17 at 09:00; Stop 08/01/17 at 09:51; Status DC Selenium Sulfide (Selsun) 1 carlee TWICEWEEKLY TP ; Start 07/31/17 at 07:30; Stop 07/31/17 at 14:29; Status DC Divalproex Sodium (Depakote Er) 1,000 mg QHS PO Last administered on 07/31/17at 20:26; Start 07/31/17 at 21:00; Stop 08/01/17 at 18:29; Status DC Atorvastatin Calcium (Lipitor) 10 mg QHS PO Last administered on 09/03/17at 20: 00; Start 07/31/17 at 21:00 Divalproex Sodium (Depakote Er) 500 mg DAILY PO Last administered on 08/01/17at 09:10; Start 07/31/17 at 09:00; Stop 08/01/17 at 09:51; Status DC Olanzapine (ZyPREXA) 10 mg DAILY PO Last administered on 08/01/17at 09:30; Start 07/31/17 at 09:00; Stop 08/01/17 at 09:51; Status DC Olanzapine (ZyPREXA) 5 mg DAILY@1400 PO Last administered on 07/31/17at 15:07; Start 07/31/17 at 14:00; Stop 08/01/17 at 09:51; Status DC Selenium Sulfide (Selsun) 1 carlee TWICEWEEKLY TP ; Start 07/31/17 at 14:29 Divalproex Sodium (Depakote Er) 750 mg DAILY PO ; Start 08/02/17 at 09:00; Stop 08/02/17 at 09:00; Status DC Divalproex Sodium (Depakote Sprinkles) 750 mg BID PO Last administered on at 09:21; Start 08/01/17 at 21:00; Stop 08/04/17 at 14:28; Status DC Al Hydroxide/Mg Hydroxide (Mylanta Plus Xs) 30 ml PRN AFTMEAL PRN PO DYSPEPSIA Last administered on 09/01/17at 09:03; Start 08/03/17 at 12:00 Magnesium Hydroxide (Milk Of Magnesia) 2,400 mg PRN DAILY PRN PO CONSTIPATION Last administered on 08/14/17at 20:28; Start 08/03/17 at 17:00 Divalproex Sodium (Depakote Sprinkles) 1,000 mg BID PO Last administered on at 07:51; Start 08/04/17 at 21:00; Stop 08/07/17 at 18:35; Status DC Polyethylene Glycol (miraLAX) 17 gm DAILY PO Last administered on 09/03/17at 08: 06; Start 08/05/17 at 09:00 Trazodone HCl (Desyrel) 100 mg QHS PO Last administered on 08/18/17at 19:34; Start 08/06/17 at 21:00; Stop 08/19/17 at 18:44; Status DC Trazodone HCl (Desyrel) 100 mg PRN QHS PRN PO INSOMNIA Last administered on at 21:05; Start 08/06/17 at 19:00; Stop 08/19/17 at 18:44; Status DC Divalproex Sodium (Depakote Sprinkles) 1,250 mg BID PO Last administered on at 20:51; Start 08/07/17 at 21:00; Stop 08/09/17 at 18:31; Status DC Quetiapine Fumarate (SEROquel) 50 mg BID PO Last administered on 08/19/17at 09: 19; Start 08/09/17 at 21:00; Stop 08/19/17 at 10:47; Status DC Divalproex Sodium (Depakote Sprinkles) 1,500 mg BID PO Last administered on at 08:25; Start 08/09/17 at 21:00; Stop 08/12/17 at 10:53; Status DC Trazodone HCl (Desyrel) 25 mg TID@0900,1300,1700 PO Last administered on at 17:10; Start 08/12/17 at 09:00; Stop 08/13/17 at 18:00; Status DC Divalproex Sodium (Depakote Sprinkles) 1,750 mg BID PO Last administered on at 09:32; Start 08/12/17 at 21:00; Stop 08/16/17 at 18:48; Status DC Trazodone HCl (Desyrel) 25 mg BID@1300,1700 PO Last administered on 09/03/17at 17:00; Start 08/14/17 at 13:00 Trazodone HCl (Desyrel) 50 mg DAILY PO Last administered on 09/03/17at 08:07; Start 08/14/17 at 09:00 Trazodone HCl (Desyrel) 50 mg 1X ONCE PO Last administered on 08/13/17at 18:29 ; Start 08/13/17 at 18:30; Stop 08/13/17 at 18:31; Status DC Sertraline HCl (Zoloft) 25 mg DAILY PO Last administered on 08/17/17 07:47; Start 08/15/17 at 09:00; Stop 08/17/17 at 11:00; Status DC Sertraline HCl (Zoloft) 50 mg DAILY PO Last administered on 09/03/17 08:06; Start 08/18/17 at 09:00 Divalproex Sodium (Depakote Sprinkles) 2,000 mg BID PO Last administered on 08/23 09:05; Start 08/16/17 at 21:00; Stop 08/23/17 at 18:02; Status DC Buspirone HCl (Buspar) 5 mg TID@0900,1300,1700 PO Last administered on 17:00; Start 08/17/17 at 09:00 Quetiapine Fumarate (SEROquel) 50 mg TID@0900,1300,1700 PO Last administered on 09/03/17 17:00; Start 08/19/17 at 13:00 Mirtazapine (Remeron) 7.5 mg QHS PO Last administered on 09/03/17 19:59; Start 08/19/17 at 21:00 Hydroxyzine HCl (Atarax) 50 mg PRN QHS PRN PO INSOMNIA, MAY REPEAT X1 Last administered on 09/01/17 00:28; Start 08/20/17 at 22:30 Divalproex Sodium (Depakote Sprinkles) 2,250 mg BID PO Last administered on 08/26 09:06; Start 08/23/17 at 21:00; Stop 08/26/17 at 10:43; Status DC Divalproex Sodium (Depakote Sprinkles) 2,500 mg BID PO Last administered on 08/28 19:42; Start 08/26/17 at 21:00; Stop 08/28/17 at 22:15; Status DC Iohexol (Omnipaque 300 Mg/ml) 75 ml 1X ONCE IV Last administered on 08/27/17 22:59; Start 08/27/17 at 19:00; Stop 08/27/17 at 19:04; Status DC Divalproex Sodium (Depakote Sprinkles) 1,250 mg QID PO Last administered on 4/8 /18at 17:13; Start 08/29/17 at 09:00; Stop 08/29/17 at 17:51; Status DC Divalproex Sodium (Depakote Sprinkles) 1,250 mg BID@0900,1200 PO ; Start at 09:00; Stop 08/30/17 at 09:11; Status DC Divalproex Sodium (Depakote Sprinkles) 1,375 mg BID@1700,2100 PO Last administered on 08/29/17at 19:48; Start 08/29/17 at 21:00; Stop 08/30/17 at 09:11; Status DC Valproic Acid (Depakene) 1,375 mg BID@1700,2100 PO Last administered on at 20:00; Start 08/30/17 at 17:00 Valproic Acid (Depakene) 1,250 mg BID@0900,1200 PO Last administered on at 12:44; Start 08/30/17 at 09:15 Multi-Ingredient Ointment (Analgesic [place]) 1 carlee PRN QID PRN TP MUSCLE PAIN Last administered on 09/01/17at 19:35; Start 09/01/17 at 19:15 Active Scripts Active Reported Ibuprofen 400 Mg Tablet 400 Mg PO PRN Q4HRS PRN MDD 1200mg/24hrs Lorazepam 2 Mg/1 Ml Vial 1 Mg IM BID PRN Abilify Maintena (Aripiprazole) 400 Mg Suser.vial 400 Mg IM Q4WK Next dose due 08/26/17 Paroxetine Hcl 20 Mg Tablet 10 Mg PO DAILY Abilify (Aripiprazole) 5 Mg Tablet 5 Mg PO DAILY Fenofibrate 160 Mg Tablet 160 Mg PO QHS Olanzapine 5 Mg Tablet 5 Mg PO DAILY@1400 5mg PO daily at 14:00 Methylphenidate Hcl 10 Mg Tablet 10 Mg PO BID@0900,1300 Seroquel (Quetiapine Fumarate) 100 Mg Tablet 100 Mg PO BID Prevident 5000 (Sodium Fluoride) 100 Ml Gel..ml. 1 Carlee DT BID Selenium Sulfide 180 Ml Shampoo 1 Carlee TP TWICE WEEKLY Lorazepam 1 Mg Tablet 1 Mg PO PRN BID PRN Acetaminophen 500 Mg Tablet 500 Mg PO PRN Q4HRS PRN Risperdal Consta (Risperidone Microspheres) 25 Mg/2 Ml Disp.syrin 25 Mg IM Q2WKS Phenytoin 125 Mg/5 Ml Oral.susp 300 Mg PO QHS Zyprexa (Olanzapine) 20 Mg Tablet 20 Mg PO QHS Atorvastatin Calcium 10 Mg Tablet 10 Mg PO QHS Zyprexa (Olanzapine) 5 Mg Tablet 5 Mg PO DAILY@1400 Clozapine 200 Mg Tablet 500 Mg PO QHS Clozapine 200 Mg Tablet 200 Mg PO DAILY Detrol La (Tolterodine Tartrate) 2 Mg Cap.er.24h 2 Mg PO BID Depakote Er (Divalproex Sodium) 500 Mg Tab.er.24h 500 Mg PO DAILY Depakote Er (Divalproex Sodium) 500 Mg Tab.er.24h 1,000 Mg PO QHS [place] 3 1,000 Mg Softgel ([place]-3 Fatty Acids/Fish Oil) 1 Each Capsule 1,000 Mg PO DAILY Thera-M Tablet (Multivits,Ca,Minerals/Iron/Fa) 1 Each Tablet 1 Tab PO DAILY Vitamin D3 (Cholecalciferol (Vitamin D3)) 1,000 Unit Tablet 2,000 Unit PO DAILY Olanzapine 10 Mg Tablet 10 Mg PO DAILY Miralax (Polyethylene Glycol 3350) 119 Gm Powder 17 Gm PO DAILY Levothyroxine Sodium 200 Mcg Tablet 200 Mcg PO DAILY06 Pantoprazole Sodium 40 Mg Tablet.dr 40 Mg PO DAILY I have reviewed the current psychotropics carefully including drug interactions. Risk benefit ratio favors no change other than as noted in my dictated progress note. Diagnosis: Problems: (1) Dementia in Alzheimer's disease with delusions (2) Impulse control disorder (3) Schizoaffective disorder, chronic condition with acute exacerbation (4) Borderline intellectual disability STEVEN AYALA MD Sep 03, 2017 20:46
--- NOTE | 2017-09-03 21:58 | PN ---
DATE: 09/01/2017 PSYCHIATRIC PROGRESS NOTE This late entry 09/01/2017 covers elements not covered in my initial note of 09/01/2017. SUBJECTIVE: Met with the patient in the evening of 09/01/2017, but overall, per nursing report, the patient is doing a little better, walking and talking and less obsessive, less demanding, but towards the evening, this is more problematic. He has frequent GI complaints and is asked to walk the corridor 3 or 4 times per nursing staff then states he is relieved. REVIEW OF SYSTEMS: No CV, , pulmonary, eye, ENT system symptoms on review. Reliability is poor. He is obsessed about the temperature in his room, discussed with nursing staff. MENTAL STATUS EXAM: Oriented to himself, situation. Speech is coherent, rapid at times less pressured. Abstraction fair, computation impaired, language function is intact, attention span short. Mood and affect still labile, but much improved. LABS: Valproic acid level is 42 on 09/01/2017. He is on a rather high dosage of Depakote for now, we will not increase it. IMPRESSION: Schizoaffective disorder, bipolar type, intellectual disability. PLAN: Continue psychotropics mentioned in my initial note. Follow labs for the Clozaril. MAN Suleman AYALA MD DR: ADALBERTO/garry JOB#: [id number] / [id number]
--- NOTE | 2017-09-04 04:02 | PN ---
DATE: 09/02/2017 This is a late entry for 09/02/2017, covers elements not covered in my initial note of 09/02/2017. SUBJECTIVE: I met with the patient in the evening of 09/02/2017 and staffed at a treatment team meeting with the entire team in the morning of 09/02/2017. The patient slept 7-1/2 hours previous evening, threw up his meds earlier in the day. He has been changed to a lactose-free diet to see if it helps the GI symptoms. REVIEW OF SYSTEMS: No CV, , pulmonary, eye, ENT system symptoms on review. Reliability varies. MENTAL STATUS EXAM: Oriented to himself and situation. Speech coherent, rapid at times less so than before. Abstraction fair, computation impaired, language function intact. Mood and affect remain somewhat labile. LABORATORY DATA: Reviewed. IMPRESSION: Schizoaffective disorder, bipolar type, intellectual disability. PLAN: Continue current psychotropics as noted in my initial note. Rest as above. MAN Suleman AYALA MD DR: ADALBERTO/garry JOB#: [id number] / [id number]
[2017-09-04] MEDS: LEVOTHYROXINE 100 MCG TABLET PO SCH (06:12)
[2017-09-04 06:25] VITALS: BP 113/64
[2017-09-04] MEDS: OXYBUTYNIN CHLORIDE 5 MG TABLET PO SCH ×3 (07:45→19:38)
[2017-09-04] MEDS: busPIRone 5 MG TABLET. PO SCH ×3 (07:45→17:08)
[2017-09-04] MEDS: SERTRALINE 25 MG TABLET. PO SCH (07:45)
[2017-09-04] MEDS: QUEtiapine 50 MG TABLET. PO SCH ×3 (07:45→17:08)
[2017-09-04] MEDS: cloZAPine 100 MG TABLET PO SCH ×2 (07:45→19:38)
[2017-09-04] MEDS: traZODone 50 MG TABLET. PO SCH ×3 (07:45→17:09)
[2017-09-04] MEDS: POLYETHYLENE GLYCOL 3350 17 GM PACKET. PO SCH (07:45)
[2017-09-04] MEDS: VALPROATE ACID 250 MG/5 ML ORAL SOLUTION PO SCH ×4 (07:46→19:39)
[2017-09-04 16:25] VITALS: BP 116/68
[2017-09-04] MEDS: PHENYTOIN SODIUM EXTENDED 100 MG CAPSULE PO SCH (19:38)
[2017-09-04] MEDS: MIRTAZAPINE 7.5 MG TABLET. PO SCH (19:38)
[2017-09-04] MEDS: ATORVASTATIN CALCIUM 10 MG TABLET. PO SCH (19:38)
--- NOTE | 2017-09-04 19:42 | PDOC ---
Exam Note: Chad Note: Please also refer to the separate dictated note~for this date of service dictated separately.~Patient seen individually. Discussed the patient with Nursing staff reviewed the chart.~Reviewed interim history and current functioning. Reviewed vital signs,~Labs/ Radiology~and current medications noted below. Continue current treatment with the changes noted in the dictated addendum note Assessment: Vital Signs: Vital Signs Date Time Temp Pulse Resp B/P (MAP) Pulse Ox O2 Delivery O2 Flow Rate FiO2 09/04/17 16:25 97.1 83 18 116/68 (84) 97 Room Air I&O Intake and Output 09/04/17 07:00 Intake Total 1560 ml Balance 1560 ml Intake Oral 1560 ml # Bowel Movements 1 Current Medications: Meds: Current Medications Valproic Acid (Depakene) 500 mg STAT PO Last administered on 07/30/17at 21:21; Start 07/30/17 at 20:49; Stop 08/01/17 at 15:23; Status DC Divalproex Sodium (Depakote Er) 1,000 mg QHS PO ; Start 07/31/17 at 21:00; Stop 07/31/17 at 21:00; Status DC Divalproex Sodium (Depakote Er) 500 mg DAILY PO ; Start 07/31/17 at 09:00; Stop 07/31/17 at 09:00; Status DC Lorazepam (Ativan) 1 mg PRN BID PRN PO ANXIETY / AGITATION Last administered on 08/28/17at 16:22; Start 07/30/17 at 23:00 Olanzapine (ZyPREXA) 10 mg DAILY PO ; Start 07/31/17 at 09:00; Stop 07/31/17 at 09:00; Status DC Olanzapine (ZyPREXA) 5 mg DAILY@1400 PO ; Start 07/31/17 at 14:00; Stop at 14:00; Status DC Risperidone (RisperDAL CONSTA) 25 mg Q2WKS IM ; Start 08/13/17 at 09:00; Status UNV Clozapine (Clozaril) 200 mg DAILY PO Last administered on 09/04/17at 07:45; Start 07/31/17 at 09:00 Clozapine (Clozaril) 500 mg QHS PO Last administered on 09/04/17at 19:38; Start 07/31/17 at 21:00 Olanzapine (ZyPREXA) 20 mg QHS PO Last administered on 07/31/17 20:28; Start 07/31/17 at 21:00; Stop 08/01/17 at 09:51; Status DC Atorvastatin Calcium (Lipitor) 10 mg QHS PO ; Start 07/31/17 at 21:00; Stop 03/10 at 21:00; Status DC Phenytoin Sodium (Dilantin) 300 mg QHS PO Last administered on 09/04/17 19:38 ; Start 07/31/17 at 21:00 Non-Formulary Medication (Sodium Fluoride (Prevident 5000)) 1 carlee BID DT ; Start 07/31/17 at 09:00; Stop 07/31/17 at 09:00; Status DC Oxybutynin Chloride (Ditropan) 5 mg [id number] PO Last administered on 09/04/17 19 :38; Start 07/31/17 at 09:00 Quetiapine Fumarate (SEROquel) 100 mg BID PO Last administered on 08/08/17 20: 51; Start 07/31/17 at 09:00; Stop 08/09/17 at 18:03; Status DC Acetaminophen (Tylenol) 500 mg PRN Q4HRS PRN PO PAIN Last administered on 13:21; Start 07/31/17 at 07:15 Levothyroxine Sodium (Synthroid) 200 mcg DAILY06 PO Last administered on 06:12; Start 07/31/17 at 07:15 Fish Oil (Fish Oil) 1,000 mg DAILY PO Last administered on 07/31/17at 09:36; Start 07/31/17 at 09:00; Stop 08/01/17 at 09:51; Status DC Selenium Sulfide (Selsun) 1 carlee TWICEWEEKLY TP ; Start 07/31/17 at 07:30; Stop 07/31/17 at 14:29; Status DC Divalproex Sodium (Depakote Er) 1,000 mg QHS PO Last administered on 07/31/17 20:26; Start 07/31/17 at 21:00; Stop 08/01/17 at 18:29; Status DC Atorvastatin Calcium (Lipitor) 10 mg QHS PO Last administered on 4/14/18at 19: 38; Start 07/31/17 at 21:00 Divalproex Sodium (Depakote Er) 500 mg DAILY PO Last administered on 08/01/17at 09:10; Start 07/31/17 at 09:00; Stop 08/01/17 at 09:51; Status DC Olanzapine (ZyPREXA) 10 mg DAILY PO Last administered on 08/01/17at 09:30; Start 07/31/17 at 09:00; Stop 08/01/17 at 09:51; Status DC Olanzapine (ZyPREXA) 5 mg DAILY@1400 PO Last administered on 07/31/17at 15:07; Start 07/31/17 at 14:00; Stop 08/01/17 at 09:51; Status DC Selenium Sulfide (Selsun) 1 carlee TWICEWEEKLY TP ; Start 07/31/17 at 14:29 Divalproex Sodium (Depakote Er) 750 mg DAILY PO ; Start 08/02/17 at 09:00; Stop 08/02/17 at 09:00; Status DC Divalproex Sodium (Depakote Sprinkles) 750 mg BID PO Last administered on 09:21; Start 08/01/17 at 21:00; Stop 08/04/17 at 14:28; Status DC Al Hydroxide/Mg Hydroxide (Mylanta Plus Xs) 30 ml PRN AFTMEAL PRN PO DYSPEPSIA Last administered on 09/01/17at 09:03; Start 08/03/17 at 12:00 Magnesium Hydroxide (Milk Of Magnesia) 2,400 mg PRN DAILY PRN PO CONSTIPATION Last administered on 08/14/17at 20:28; Start 08/03/17 at 17:00 Divalproex Sodium (Depakote Sprinkles) 1,000 mg BID PO Last administered on at 07:51; Start 08/04/17 at 21:00; Stop 08/07/17 at 18:35; Status DC Polyethylene Glycol (miraLAX) 17 gm DAILY PO Last administered on 09/04/17at 07: 45; Start 08/05/17 at 09:00 Trazodone HCl (Desyrel) 100 mg QHS PO Last administered on 08/18/17at 19:34; Start 08/06/17 at 21:00; Stop 08/19/17 at 18:44; Status DC Trazodone HCl (Desyrel) 100 mg PRN QHS PRN PO INSOMNIA Last administered on at 21:05; Start 08/06/17 at 19:00; Stop 08/19/17 at 18:44; Status DC Divalproex Sodium (Depakote Sprinkles) 1,250 mg BID PO Last administered on at 20:51; Start 08/07/17 at 21:00; Stop 08/09/17 at 18:31; Status DC Quetiapine Fumarate (SEROquel) 50 mg BID PO Last administered on 08/19/17at 09: 19; Start 08/09/17 at 21:00; Stop 08/19/17 at 10:47; Status DC Divalproex Sodium (Depakote Sprinkles) 1,500 mg BID PO Last administered on at 08:25; Start 08/09/17 at 21:00; Stop 08/12/17 at 10:53; Status DC Trazodone HCl (Desyrel) 25 mg TID@0900,1300,1700 PO Last administered on at 17:10; Start 08/12/17 at 09:00; Stop 08/13/17 at 18:00; Status DC Divalproex Sodium (Depakote Sprinkles) 1,750 mg BID PO Last administered on at 09:32; Start 08/12/17 at 21:00; Stop 08/16/17 at 18:48; Status DC Trazodone HCl (Desyrel) 25 mg BID@1300,1700 PO Last administered on 09/04/17at 17:09; Start 08/14/17 at 13:00 Trazodone HCl (Desyrel) 50 mg DAILY PO Last administered on 09/04/17at 07:45; Start 08/14/17 at 09:00 Trazodone HCl (Desyrel) 50 mg 1X ONCE PO Last administered on 08/13/17at 18:29 ; Start 08/13/17 at 18:30; Stop 08/13/17 at 18:31; Status DC Sertraline HCl (Zoloft) 25 mg DAILY PO Last administered on 08/17/17 07:47; Start 08/15/17 at 09:00; Stop 08/17/17 at 11:00; Status DC Sertraline HCl (Zoloft) 50 mg DAILY PO Last administered on 09/04/17 07:45; Start 08/18/17 at 09:00 Divalproex Sodium (Depakote Sprinkles) 2,000 mg BID PO Last administered on 08/23 09:05; Start 08/16/17 at 21:00; Stop 08/23/17 at 18:02; Status DC Buspirone HCl (Buspar) 5 mg TID@0900,1300,1700 PO Last administered on 17:08; Start 08/17/17 at 09:00 Quetiapine Fumarate (SEROquel) 50 mg TID@0900,1300,1700 PO Last administered on 09/04/17 17:08; Start 08/19/17 at 13:00 Mirtazapine (Remeron) 7.5 mg QHS PO Last administered on 09/04/17 19:38; Start 08/19/17 at 21:00 Hydroxyzine HCl (Atarax) 50 mg PRN QHS PRN PO INSOMNIA, MAY REPEAT X1 Last administered on 09/01/17 00:28; Start 08/20/17 at 22:30 Divalproex Sodium (Depakote Sprinkles) 2,250 mg BID PO Last administered on 08/26 09:06; Start 08/23/17 at 21:00; Stop 08/26/17 at 10:43; Status DC Divalproex Sodium (Depakote Sprinkles) 2,500 mg BID PO Last administered on 08/28 19:42; Start 08/26/17 at 21:00; Stop 08/28/17 at 22:15; Status DC Iohexol (Omnipaque 300 Mg/ml) 75 ml 1X ONCE IV Last administered on 08/27/17 22:59; Start 08/27/17 at 19:00; Stop 08/27/17 at 19:04; Status DC Divalproex Sodium (Depakote Sprinkles) 1,250 mg QID PO Last administered on 08/29 17:13; Start 08/29/17 at 09:00; Stop 08/29/17 at 17:51; Status DC Divalproex Sodium (Depakote Sprinkles) 1,250 mg BID@0900,1200 PO ; Start at 09:00; Stop 08/30/17 at 09:11; Status DC Divalproex Sodium (Depakote Sprinkles) 1,375 mg BID@1700,2100 PO Last administered on 08/29/17at 19:48; Start 08/29/17 at 21:00; Stop 08/30/17 at 09:11; Status DC Valproic Acid (Depakene) 1,375 mg BID@1700,2100 PO Last administered on at 19:39; Start 08/30/17 at 17:00 Valproic Acid (Depakene) 1,250 mg BID@0900,1200 PO Last administered on at 12:14; Start 08/30/17 at 09:15 Multi-Ingredient Ointment (Analgesic [place]) 1 carlee PRN QID PRN TP MUSCLE PAIN Last administered on 09/01/17at 19:35; Start 09/01/17 at 19:15 Active Scripts Active Reported Ibuprofen 400 Mg Tablet 400 Mg PO PRN Q4HRS PRN MDD 1200mg/24hrs Lorazepam 2 Mg/1 Ml Vial 1 Mg IM BID PRN Abilify Maintena (Aripiprazole) 400 Mg Suser.vial 400 Mg IM Q4WK Next dose due 08/26/17 Paroxetine Hcl 20 Mg Tablet 10 Mg PO DAILY Abilify (Aripiprazole) 5 Mg Tablet 5 Mg PO DAILY Fenofibrate 160 Mg Tablet 160 Mg PO QHS Olanzapine 5 Mg Tablet 5 Mg PO DAILY@1400 5mg PO daily at 14:00 Methylphenidate Hcl 10 Mg Tablet 10 Mg PO BID@0900,1300 Seroquel (Quetiapine Fumarate) 100 Mg Tablet 100 Mg PO BID Prevident 5000 (Sodium Fluoride) 100 Ml Gel..ml. 1 Carlee DT BID Selenium Sulfide 180 Ml Shampoo 1 Carlee TP TWICE WEEKLY Lorazepam 1 Mg Tablet 1 Mg PO PRN BID PRN Acetaminophen 500 Mg Tablet 500 Mg PO PRN Q4HRS PRN Risperdal Consta (Risperidone Microspheres) 25 Mg/2 Ml Disp.syrin 25 Mg IM Q2WKS Phenytoin 125 Mg/5 Ml Oral.susp 300 Mg PO QHS Zyprexa (Olanzapine) 20 Mg Tablet 20 Mg PO QHS Atorvastatin Calcium 10 Mg Tablet 10 Mg PO QHS Zyprexa (Olanzapine) 5 Mg Tablet 5 Mg PO DAILY@1400 Clozapine 200 Mg Tablet 500 Mg PO QHS Clozapine 200 Mg Tablet 200 Mg PO DAILY Detrol La (Tolterodine Tartrate) 2 Mg Cap.er.24h 2 Mg PO BID Depakote Er (Divalproex Sodium) 500 Mg Tab.er.24h 500 Mg PO DAILY Depakote Er (Divalproex Sodium) 500 Mg Tab.er.24h 1,000 Mg PO QHS [place] 3 1,000 Mg Softgel ([place]-3 Fatty Acids/Fish Oil) 1 Each Capsule 1,000 Mg PO DAILY Thera-M Tablet (Multivits,Ca,Minerals/Iron/Fa) 1 Each Tablet 1 Tab PO DAILY Vitamin D3 (Cholecalciferol (Vitamin D3)) 1,000 Unit Tablet 2,000 Unit PO DAILY Olanzapine 10 Mg Tablet 10 Mg PO DAILY Miralax (Polyethylene Glycol 3350) 119 Gm Powder 17 Gm PO DAILY Levothyroxine Sodium 200 Mcg Tablet 200 Mcg PO DAILY06 Pantoprazole Sodium 40 Mg Tablet.dr 40 Mg PO DAILY I have reviewed the current psychotropics carefully including drug interactions. Risk benefit ratio favors no change other than as noted in my dictated progress note. Diagnosis: Problems: (1) Dementia in Alzheimer's disease with delusions (2) Impulse control disorder (3) Schizoaffective disorder, chronic condition with acute exacerbation (4) Borderline intellectual disability STEVEN AYALA MD Sep 04, 2017 19:42
[2017-09-05] MEDS: LEVOTHYROXINE 100 MCG TABLET PO SCH (06:02)
[2017-09-05 06:12] VITALS: BP 194/71
[2017-09-05] MEDS: QUEtiapine 50 MG TABLET. PO SCH ×3 (08:03→16:55)
[2017-09-05] MEDS: busPIRone 5 MG TABLET. PO SCH ×3 (08:03→16:55)
[2017-09-05] MEDS: traZODone 50 MG TABLET. PO SCH ×3 (08:04→16:55)
[2017-09-05] MEDS: cloZAPine 100 MG TABLET PO SCH ×2 (08:04→19:28)
[2017-09-05] MEDS: SERTRALINE 25 MG TABLET. PO SCH (08:05)
[2017-09-05] MEDS: POLYETHYLENE GLYCOL 3350 17 GM PACKET. PO SCH (08:05)
[2017-09-05] MEDS: OXYBUTYNIN CHLORIDE 5 MG TABLET PO SCH ×3 (08:05→19:29)
[2017-09-05] MEDS: VALPROATE ACID 250 MG/5 ML ORAL SOLUTION PO SCH ×4 (08:06→19:30)
[2017-09-05] MEDS: LORazepam 1 MG TABLET PO PRN (13:07)
[2017-09-05 16:45] VITALS: BP 101/57
--- NOTE | 2017-09-05 19:27 | PN ---
DATE: 09/03/2017 This late entry 09/03/2017 covers elements not covered in my initial note 09/03/2017. I met with the patient evening of 09/03/2017. SUBJECTIVE: The patient is still somewhat obsessive, less agitated, compliant with medications, made himself throw up earlier in the day battery of meds given right before his meals. Somewhat obsessive, but perhaps a little better. REVIEW OF SYSTEMS: No CV, , pulmonary, eye, ENT system symptoms on review, vague somatic symptoms. MENTAL STATUS EXAM: Oriented to himself and situation. Speech coherent, rapid at times. Abstraction fair, computation impaired, language function intact. Mood and affect remain somewhat labile, less so than before. LABORATORY DATA: Reviewed. IMPRESSION: Schizoaffective disorder, bipolar type. Intellectual disability. PLAN: Continue current psychotropics. MAN Suleman AYALA MD DR: ADALBERTO/garry JOB#: [id number] / [id number]
[2017-09-05] MEDS: ATORVASTATIN CALCIUM 10 MG TABLET. PO SCH (19:29)
[2017-09-05] MEDS: PHENYTOIN SODIUM EXTENDED 100 MG CAPSULE PO SCH (19:29)
[2017-09-05] MEDS: MIRTAZAPINE 7.5 MG TABLET. PO SCH (19:29)
--- NOTE | 2017-09-05 22:08 | PDOC ---
Exam Note: Chad Note: Please also refer to the separate dictated note~for this date of service dictated separately.~Patient seen individually. Discussed the patient with Nursing staff reviewed the chart.~Reviewed interim history and current functioning. Reviewed vital signs,~Labs/ Radiology~and current medications noted below. Continue current treatment with the changes noted in the dictated addendum note Assessment: Vital Signs: Vital Signs Date Time Temp Pulse Resp B/P (MAP) Pulse Ox O2 Delivery O2 Flow Rate FiO2 09/05/17 16:45 97.8 83 17 101/57 (72) 99 09/04/17 16:25 Room Air I&O Intake and Output 09/05/17 07:00 Intake Total 1200 ml Balance 1200 ml Intake Oral 1200 ml Current Medications: Meds: Current Medications Valproic Acid (Depakene) 500 mg STAT PO Last administered on 07/30/17at 21:21; Start 07/30/17 at 20:49; Stop 08/01/17 at 15:23; Status DC Divalproex Sodium (Depakote Er) 1,000 mg QHS PO ; Start 07/31/17 at 21:00; Stop 07/31/17 at 21:00; Status DC Divalproex Sodium (Depakote Er) 500 mg DAILY PO ; Start 07/31/17 at 09:00; Stop 07/31/17 at 09:00; Status DC Lorazepam (Ativan) 1 mg PRN BID PRN PO ANXIETY / AGITATION Last administered on 09/05/17at 13:07; Start 07/30/17 at 23:00 Olanzapine (ZyPREXA) 10 mg DAILY PO ; Start 07/31/17 at 09:00; Stop 07/31/17 at 09:00; Status DC Olanzapine (ZyPREXA) 5 mg DAILY@1400 PO ; Start 07/31/17 at 14:00; Stop at 14:00; Status DC Risperidone (RisperDAL CONSTA) 25 mg Q2WKS IM ; Start 08/13/17 at 09:00; Status UNV Clozapine (Clozaril) 200 mg DAILY PO Last administered on 09/05/17at 08:04; Start 07/31/17 at 09:00 Clozapine (Clozaril) 500 mg QHS PO Last administered on 09/05/17at 19:28; Start 07/31/17 at 21:00 Olanzapine (ZyPREXA) 20 mg QHS PO Last administered on 07/31/17 20:28; Start 07/31/17 at 21:00; Stop 08/01/17 at 09:51; Status DC Atorvastatin Calcium (Lipitor) 10 mg QHS PO ; Start 07/31/17 at 21:00; Stop 03/10 at 21:00; Status DC Phenytoin Sodium (Dilantin) 300 mg QHS PO Last administered on 09/05/17 19:29 ; Start 07/31/17 at 21:00 Non-Formulary Medication (Sodium Fluoride (Prevident 5000)) 1 carlee BID DT ; Start 07/31/17 at 09:00; Stop 07/31/17 at 09:00; Status DC Oxybutynin Chloride (Ditropan) 5 mg SPS331 PO Last administered on 09/05/17 19 :29; Start 07/31/17 at 09:00 Quetiapine Fumarate (SEROquel) 100 mg BID PO Last administered on 08/08/17 20: 51; Start 07/31/17 at 09:00; Stop 08/09/17 at 18:03; Status DC Acetaminophen (Tylenol) 500 mg PRN Q4HRS PRN PO PAIN Last administered on 13:21; Start 07/31/17 at 07:15 Levothyroxine Sodium (Synthroid) 200 mcg DAILY06 PO Last administered on 06:02; Start 07/31/17 at 07:15 Fish Oil (Fish Oil) 1,000 mg DAILY PO Last administered on 07/31/17at 09:36; Start 07/31/17 at 09:00; Stop 08/01/17 at 09:51; Status DC Selenium Sulfide (Selsun) 1 carlee TWICEWEEKLY TP ; Start 07/31/17 at 07:30; Stop 07/31/17 at 14:29; Status DC Divalproex Sodium (Depakote Er) 1,000 mg QHS PO Last administered on 07/31/17 20:26; Start 07/31/17 at 21:00; Stop 08/01/17 at 18:29; Status DC Atorvastatin Calcium (Lipitor) 10 mg QHS PO Last administered on 09/05/17at 19: 29; Start 07/31/17 at 21:00 Divalproex Sodium (Depakote Er) 500 mg DAILY PO Last administered on 08/01/17at 09:10; Start 07/31/17 at 09:00; Stop 08/01/17 at 09:51; Status DC Olanzapine (ZyPREXA) 10 mg DAILY PO Last administered on 08/01/17at 09:30; Start 07/31/17 at 09:00; Stop 08/01/17 at 09:51; Status DC Olanzapine (ZyPREXA) 5 mg DAILY@1400 PO Last administered on 07/31/17at 15:07; Start 07/31/17 at 14:00; Stop 08/01/17 at 09:51; Status DC Selenium Sulfide (Selsun) 1 carlee TWICEWEEKLY TP ; Start 07/31/17 at 14:29 Divalproex Sodium (Depakote Er) 750 mg DAILY PO ; Start 08/02/17 at 09:00; Stop 08/02/17 at 09:00; Status DC Divalproex Sodium (Depakote Sprinkles) 750 mg BID PO Last administered on at 09:21; Start 08/01/17 at 21:00; Stop 08/04/17 at 14:28; Status DC Al Hydroxide/Mg Hydroxide (Mylanta Plus Xs) 30 ml PRN AFTMEAL PRN PO DYSPEPSIA Last administered on 09/01/17at 09:03; Start 08/03/17 at 12:00 Magnesium Hydroxide (Milk Of Magnesia) 2,400 mg PRN DAILY PRN PO CONSTIPATION Last administered on 08/14/17at 20:28; Start 08/03/17 at 17:00 Divalproex Sodium (Depakote Sprinkles) 1,000 mg BID PO Last administered on at 07:51; Start 08/04/17 at 21:00; Stop 08/07/17 at 18:35; Status DC Polyethylene Glycol (miraLAX) 17 gm DAILY PO Last administered on 09/05/17at 08: 05; Start 08/05/17 at 09:00 Trazodone HCl (Desyrel) 100 mg QHS PO Last administered on 08/18/17at 19:34; Start 08/06/17 at 21:00; Stop 08/19/17 at 18:44; Status DC Trazodone HCl (Desyrel) 100 mg PRN QHS PRN PO INSOMNIA Last administered on at 21:05; Start 08/06/17 at 19:00; Stop 08/19/17 at 18:44; Status DC Divalproex Sodium (Depakote Sprinkles) 1,250 mg BID PO Last administered on at 20:51; Start 08/07/17 at 21:00; Stop 08/09/17 at 18:31; Status DC Quetiapine Fumarate (SEROquel) 50 mg BID PO Last administered on 08/19/17at 09: 19; Start 08/09/17 at 21:00; Stop 08/19/17 at 10:47; Status DC Divalproex Sodium (Depakote Sprinkles) 1,500 mg BID PO Last administered on at 08:25; Start 08/09/17 at 21:00; Stop 08/12/17 at 10:53; Status DC Trazodone HCl (Desyrel) 25 mg TID@0900,1300,1700 PO Last administered on at 17:10; Start 08/12/17 at 09:00; Stop 08/13/17 at 18:00; Status DC Divalproex Sodium (Depakote Sprinkles) 1,750 mg BID PO Last administered on at 09:32; Start 08/12/17 at 21:00; Stop 08/16/17 at 18:48; Status DC Trazodone HCl (Desyrel) 25 mg BID@1300,1700 PO Last administered on 09/05/17at 16:55; Start 08/14/17 at 13:00 Trazodone HCl (Desyrel) 50 mg DAILY PO Last administered on 09/05/17at 08:04; Start 08/14/17 at 09:00 Trazodone HCl (Desyrel) 50 mg 1X ONCE PO Last administered on 08/13/17at 18:29 ; Start 08/13/17 at 18:30; Stop 08/13/17 at 18:31; Status DC Sertraline HCl (Zoloft) 25 mg DAILY PO Last administered on 08/17/17at 07:47; Start 08/15/17 at 09:00; Stop 08/17/17 at 11:00; Status DC Sertraline HCl (Zoloft) 50 mg DAILY PO Last administered on 09/05/17 08:05; Start 08/18/17 at 09:00 Divalproex Sodium (Depakote Sprinkles) 2,000 mg BID PO Last administered on 08/23 09:05; Start 08/16/17 at 21:00; Stop 08/23/17 at 18:02; Status DC Buspirone HCl (Buspar) 5 mg TID@0900,1300,1700 PO Last administered on 16:55; Start 08/17/17 at 09:00 Quetiapine Fumarate (SEROquel) 50 mg TID@0900,1300,1700 PO Last administered on 09/05/17 16:55; Start 08/19/17 at 13:00 Mirtazapine (Remeron) 7.5 mg QHS PO Last administered on 09/05/17 19:29; Start 08/19/17 at 21:00 Hydroxyzine HCl (Atarax) 50 mg PRN QHS PRN PO INSOMNIA, MAY REPEAT X1 Last administered on 09/01/17at 00:28; Start 08/20/17 at 22:30 Divalproex Sodium (Depakote Sprinkles) 2,250 mg BID PO Last administered on 08/26 09:06; Start 08/23/17 at 21:00; Stop 08/26/17 at 10:43; Status DC Divalproex Sodium (Depakote Sprinkles) 2,500 mg BID PO Last administered on 08/28 19:42; Start 08/26/17 at 21:00; Stop 08/28/17 at 22:15; Status DC Iohexol (Omnipaque 300 Mg/ml) 75 ml 1X ONCE IV Last administered on 08/27/17at 22:59; Start 08/27/17 at 19:00; Stop 08/27/17 at 19:04; Status DC Divalproex Sodium (Depakote Sprinkles) 1,250 mg QID PO Last administered on 08/29 17:13; Start 08/29/17 at 09:00; Stop 08/29/17 at 17:51; Status DC Divalproex Sodium (Depakote Sprinkles) 1,250 mg BID@0900,1200 PO ; Start at 09:00; Stop 08/30/17 at 09:11; Status DC Divalproex Sodium (Depakote Sprinkles) 1,375 mg BID@1700,2100 PO Last administered on 08/29/17at 19:48; Start 08/29/17 at 21:00; Stop 08/30/17 at 09:11; Status DC Valproic Acid (Depakene) 1,375 mg BID@1700,2100 PO Last administered on at 19:30; Start 08/30/17 at 17:00 Valproic Acid (Depakene) 1,250 mg BID@0900,1200 PO Last administered on at 12:01; Start 08/30/17 at 09:15 Multi-Ingredient Ointment (Analgesic [place]) 1 carlee PRN QID PRN TP MUSCLE PAIN Last administered on 09/01/17at 19:35; Start 09/01/17 at 19:15 Active Scripts Active Reported Ibuprofen 400 Mg Tablet 400 Mg PO PRN Q4HRS PRN MDD 1200mg/24hrs Lorazepam 2 Mg/1 Ml Vial 1 Mg IM BID PRN Abilify Maintena (Aripiprazole) 400 Mg Suser.vial 400 Mg IM Q4WK Next dose due 08/26/17 Paroxetine Hcl 20 Mg Tablet 10 Mg PO DAILY Abilify (Aripiprazole) 5 Mg Tablet 5 Mg PO DAILY Fenofibrate 160 Mg Tablet 160 Mg PO QHS Olanzapine 5 Mg Tablet 5 Mg PO DAILY@1400 5mg PO daily at 14:00 Methylphenidate Hcl 10 Mg Tablet 10 Mg PO BID@0900,1300 Seroquel (Quetiapine Fumarate) 100 Mg Tablet 100 Mg PO BID Prevident 5000 (Sodium Fluoride) 100 Ml Gel..ml. 1 Carlee DT BID Selenium Sulfide 180 Ml Shampoo 1 Carlee TP TWICE WEEKLY Lorazepam 1 Mg Tablet 1 Mg PO PRN BID PRN Acetaminophen 500 Mg Tablet 500 Mg PO PRN Q4HRS PRN Risperdal Consta (Risperidone Microspheres) 25 Mg/2 Ml Disp.syrin 25 Mg IM Q2WKS Phenytoin 125 Mg/5 Ml Oral.susp 300 Mg PO QHS Zyprexa (Olanzapine) 20 Mg Tablet 20 Mg PO QHS Atorvastatin Calcium 10 Mg Tablet 10 Mg PO QHS Zyprexa (Olanzapine) 5 Mg Tablet 5 Mg PO DAILY@1400 Clozapine 200 Mg Tablet 500 Mg PO QHS Clozapine 200 Mg Tablet 200 Mg PO DAILY Detrol La (Tolterodine Tartrate) 2 Mg Cap.er.24h 2 Mg PO BID Depakote Er (Divalproex Sodium) 500 Mg Tab.er.24h 500 Mg PO DAILY Depakote Er (Divalproex Sodium) 500 Mg Tab.er.24h 1,000 Mg PO QHS [place] 3 1,000 Mg Softgel ([place]-3 Fatty Acids/Fish Oil) 1 Each Capsule 1,000 Mg PO DAILY Thera-M Tablet (Multivits,Ca,Minerals/Iron/Fa) 1 Each Tablet 1 Tab PO DAILY Vitamin D3 (Cholecalciferol (Vitamin D3)) 1,000 Unit Tablet 2,000 Unit PO DAILY Olanzapine 10 Mg Tablet 10 Mg PO DAILY Miralax (Polyethylene Glycol 3350) 119 Gm Powder 17 Gm PO DAILY Levothyroxine Sodium 200 Mcg Tablet 200 Mcg PO DAILY06 Pantoprazole Sodium 40 Mg Tablet.dr 40 Mg PO DAILY I have reviewed the current psychotropics carefully including drug interactions. Risk benefit ratio favors no change other than as noted in my dictated progress note. Diagnosis: Problems: (1) Dementia in Alzheimer's disease with delusions (2) Impulse control disorder (3) Schizoaffective disorder, chronic condition with acute exacerbation (4) Borderline intellectual disability STEVEN AYALA MD Sep 05, 2017 22:08
--- NOTE | 2017-09-06 02:26 | OP ---
DATE OF SURGERY: 09/04/2017 PSYCHIATRIC PROGRESS NOTE This is a late entry of date of service 09/04/2017 covers elements not covered in my initial note of 09/04/2017. SUBJECTIVE: I met with the patient evening of 09/04/2017. The patient had no GI symptoms on 09/04/2017, though he was trying to throw up by putting his finger down his throat. He is compliant with his medications. No CV, , pulmonary, eye, ENT system symptoms on review, vague somatic symptoms. MENTAL STATUS EXAM: Oriented to himself and situation. Insight, judgment, recent memory is impaired. Language function is intact. Speech is rapid at times. Mood and affect, lability is improved. LABORATORY DATA: Labs reviewed. IMPRESSION: Schizoaffective disorder, bipolar type. Intellectual disability. PLAN: Continue psychotropics mentioned in my initial note. MAN Suleman AYALA MD DR: ADALBERTO/garry JOB#: [id number] / [id number]
[2017-09-06] MEDS: LEVOTHYROXINE 100 MCG TABLET PO SCH (05:59)
[2017-09-06 06:08] VITALS: BP 101/52
[2017-09-06] MEDS: busPIRone 5 MG TABLET. PO SCH ×3 (08:03→16:45)
[2017-09-06] MEDS: SERTRALINE 25 MG TABLET. PO SCH (08:03)
[2017-09-06] MEDS: POLYETHYLENE GLYCOL 3350 17 GM PACKET. PO SCH (08:03)
[2017-09-06] MEDS: QUEtiapine 50 MG TABLET. PO SCH ×3 (08:03→16:45)
[2017-09-06] MEDS: OXYBUTYNIN CHLORIDE 5 MG TABLET PO SCH ×3 (08:03→20:09)
[2017-09-06] MEDS: traZODone 50 MG TABLET. PO SCH ×3 (08:04→16:45)
[2017-09-06] MEDS: cloZAPine 100 MG TABLET PO SCH ×2 (08:04→20:09)
[2017-09-06] MEDS: VALPROATE ACID 250 MG/5 ML ORAL SOLUTION PO SCH ×4 (09:29→20:08)
[2017-09-06 10:07] LABS: ALBUMIN 2.5 g/dL (3.4-5.0); ALBUMIN/GLOBULIN RATIO 0.8 (1.0-1.7); ALK PHOS 73 U/L (46-116); ALT (SGPT) 23 U/L (16-63); ANION GAP 8 (6-14); AST (SGOT) 15 U/L (15-37); BLOOD UREA NITROGEN 17 mg/dL (8-26); BUN/CREATININE RATIO 17 (6-20); CALCIUM 8.6 mg/dL (8.5-10.1); CARBON DIOXIDE 27 mmol/L (21-32); CHLORIDE 107 mmol/L (98-107); GFR 77.9; GLUCOSE 144 mg/dL (70-99); MAGNESIUM 1.7 mg/dL (1.8-2.4); POTASSIUM 3.7 mmol/L (3.5-5.1); SODIUM 142 mmol/L (136-145); TOTAL BILIRUBIN 0.1 mg/dL (0.2-1.0); TOTAL PROTEIN 5.8 g/dL (6.4-8.2); VAL ACID 39 mcg/mL (50-100)
[2017-09-06 10:42] LABS: BASO # 0.1 x10^3/uL (0.0-0.2); BASO % 1 % (0-3); EOS # 0.1 x10^3/uL (0.0-0.7); EOS % 3 % (0-3); HEMOGLOBIN 12.4 g/dL (13.0-17.5); LYMPH # 1.7 x10^3/uL (1.0-4.8); LYMPH % 37 % (24-48); MEAN CORPUSCULAR HEMOGLOBIN 31 pg (25-35); MEAN CORPUSCULAR HGB CONC 34 g/dL (31-37); MEAN CORPUSCULAR VOLUME 93 fL (79-100); MONO # 0.5 x10^3/uL (0.0-1.1); MONO % 11 % (0-9); NEUT # 2.2 x10^3uL (1.8-7.7); NEUT % 49 % (31-73); PLATELET COUNT 169 x10^3/uL (140-400); RED BLOOD COUNT 3.98 x10^6/uL (4.30-5.70); RED CELL DISTRIBUTION WIDTH 12.8 % (11.5-14.5); WHITE BLOOD COUNT 4.6 x10^3/uL (4.0-11.0)
[2017-09-06 15:48] VITALS: BP 106/77
[2017-09-06] MEDS: ATORVASTATIN CALCIUM 10 MG TABLET. PO SCH (20:09)
[2017-09-06] MEDS: MIRTAZAPINE 7.5 MG TABLET. PO SCH (20:09)
[2017-09-06] MEDS: PHENYTOIN SODIUM EXTENDED 100 MG CAPSULE PO SCH (20:09)
--- NOTE | 2017-09-06 21:06 | PDOC ---
Exam Note: Chad Note: Please also refer to the separate dictated note~for this date of service dictated separately.~Patient seen individually. Discussed the patient with Nursing staff reviewed the chart.~Reviewed interim history and current functioning. Reviewed vital signs,~Labs/ Radiology~and current medications noted below. Continue current treatment with the changes noted in the dictated addendum note Assessment: Vital Signs: Vital Signs Date Time Temp Pulse Resp B/P (MAP) Pulse Ox O2 Delivery O2 Flow Rate FiO2 09/06/17 15:48 97.3 77 18 106/77 (87) 100 09/04/17 16:25 Room Air I&O Intake and Output 09/06/17 07:00 Intake Total 720 ml Balance 720 ml Intake Oral 720 ml # Voids 2 # Bowel Movements 1 Labs: Laboratory Tests Test 09/06/17 09:24 White Blood Count 4.6 x10^3/uL (4.0-11.0) Red Blood Count 3.98 x10^6/uL (4.30-5.70) L Hemoglobin 12.4 g/dL (13.0-17.5) L Hematocrit 37.0 % (39.0-53.0) L Mean Corpuscular Volume 93 fL (79-100) Mean Corpuscular Hemoglobin 31 pg (25-35) Mean Corpuscular Hemoglobin Concent 34 g/dL (31-37) Red Cell Distribution Width 12.8 % (11.5-14.5) Platelet Count 169 x10^3/uL (140-400) Neutrophils (%) (Auto) 49 % (31-73) Lymphocytes (%) (Auto) 37 % (24-48) Monocytes (%) (Auto) 11 % (0-9) H Eosinophils (%) (Auto) 3 % (0-3) Basophils (%) (Auto) 1 % (0-3) Neutrophils # (Auto) 2.2 x10^3uL (1.8-7.7) Lymphocytes # (Auto) 1.7 x10^3/uL (1.0-4.8) Monocytes # (Auto) 0.5 x10^3/uL (0.0-1.1) Eosinophils # (Auto) 0.1 x10^3/uL (0.0-0.7) Basophils # (Auto) 0.1 x10^3/uL (0.0-0.2) Sodium Level 142 mmol/L (136-145) Potassium Level 3.7 mmol/L (3.5-5.1) Chloride Level 107 mmol/L (98-107) Carbon Dioxide Level 27 mmol/L (21-32) Anion Gap 8 (6-14) Blood Urea Nitrogen 17 mg/dL (8-26) Creatinine 1.0 mg/dL (0.7-1.3) Estimated GFR (Cockcroft-Gault) 77.9 BUN/Creatinine Ratio 17 (6-20) Glucose Level 144 mg/dL (70-99) H Calcium Level 8.6 mg/dL (8.5-10.1) Magnesium Level 1.7 mg/dL (1.8-2.4) L Total Bilirubin 0.1 mg/dL (0.2-1.0) L Aspartate Amino Transferase (AST) 15 U/L (15-37) Alanine Aminotransferase (ALT) 23 U/L (16-63) Alkaline Phosphatase 73 U/L (46-116) Total Protein 5.8 g/dL (6.4-8.2) L Albumin 2.5 g/dL (3.4-5.0) L Albumin/Globulin Ratio 0.8 (1.0-1.7) L Valproic Acid Level 39 mcg/mL (50-100) L Valproic Acid Last Dose Date 09/05/17 Valproic Acid Last Dose Time 2100 Current Medications: Meds: Current Medications Valproic Acid (Depakene) 500 mg STAT PO Last administered on 07/30/17at 21:21; Start 07/30/17 at 20:49; Stop 08/01/17 at 15:23; Status DC Divalproex Sodium (Depakote Er) 1,000 mg QHS PO ; Start 07/31/17 at 21:00; Stop 07/31/17 at 21:00; Status DC Divalproex Sodium (Depakote Er) 500 mg DAILY PO ; Start 07/31/17 at 09:00; Stop 07/31/17 at 09:00; Status DC Lorazepam (Ativan) 1 mg PRN BID PRN PO ANXIETY / AGITATION Last administered on 09/05/17at 13:07; Start 07/30/17 at 23:00 Olanzapine (ZyPREXA) 10 mg DAILY PO ; Start 07/31/17 at 09:00; Stop 07/31/17 at 09:00; Status DC Olanzapine (ZyPREXA) 5 mg DAILY@1400 PO ; Start 07/31/17 at 14:00; Stop at 14:00; Status DC Risperidone (RisperDAL CONSTA) 25 mg Q2WKS IM ; Start 08/13/17 at 09:00; Status UNV Clozapine (Clozaril) 200 mg DAILY PO Last administered on 09/06/17at 08:04; Start 07/31/17 at 09:00 Clozapine (Clozaril) 500 mg QHS PO Last administered on 09/06/17 20:09; Start 07/31/17 at 21:00 Olanzapine (ZyPREXA) 20 mg QHS PO Last administered on 07/31/17at 20:28; Start 07/31/17 at 21:00; Stop 08/01/17 at 09:51; Status DC Atorvastatin Calcium (Lipitor) 10 mg QHS PO ; Start 07/31/17 at 21:00; Stop 03/10 at 21:00; Status DC Phenytoin Sodium (Dilantin) 300 mg QHS PO Last administered on 09/06/17at 20:09 ; Start 07/31/17 at 21:00 Non-Formulary Medication (Sodium Fluoride (Prevident 5000)) 1 carlee BID DT ; Start 07/31/17 at 09:00; Stop 07/31/17 at 09:00; Status DC Oxybutynin Chloride (Ditropan) 5 mg [id number] PO Last administered on 09/06/17at 20 :09; Start 07/31/17 at 09:00 Quetiapine Fumarate (SEROquel) 100 mg BID PO Last administered on 08/08/17at 20: 51; Start 07/31/17 at 09:00; Stop 08/09/17 at 18:03; Status DC Acetaminophen (Tylenol) 500 mg PRN Q4HRS PRN PO PAIN Last administered on at 13:21; Start 07/31/17 at 07:15 Levothyroxine Sodium (Synthroid) 200 mcg DAILY06 PO Last administered on at 05:59; Start 07/31/17 at 07:15 Fish Oil (Fish Oil) 1,000 mg DAILY PO Last administered on 07/31/17at 09:36; Start 07/31/17 at 09:00; Stop 08/01/17 at 09:51; Status DC Selenium Sulfide (Selsun) 1 carlee TWICEWEEKLY TP ; Start 07/31/17 at 07:30; Stop 07/31/17 at 14:29; Status DC Divalproex Sodium (Depakote Er) 1,000 mg QHS PO Last administered on 07/31/17at 20:26; Start 07/31/17 at 21:00; Stop 08/01/17 at 18:29; Status DC Atorvastatin Calcium (Lipitor) 10 mg QHS PO Last administered on 09/06/17at 20: 09; Start 07/31/17 at 21:00 Divalproex Sodium (Depakote Er) 500 mg DAILY PO Last administered on 08/01/17at 09:10; Start 07/31/17 at 09:00; Stop 08/01/17 at 09:51; Status DC Olanzapine (ZyPREXA) 10 mg DAILY PO Last administered on 08/01/17at 09:30; Start 07/31/17 at 09:00; Stop 08/01/17 at 09:51; Status DC Olanzapine (ZyPREXA) 5 mg DAILY@1400 PO Last administered on 07/31/17at 15:07; Start 07/31/17 at 14:00; Stop 08/01/17 at 09:51; Status DC Selenium Sulfide (Selsun) 1 carlee TWICEWEEKLY TP ; Start 07/31/17 at 14:29 Divalproex Sodium (Depakote Er) 750 mg DAILY PO ; Start 08/02/17 at 09:00; Stop 08/02/17 at 09:00; Status DC Divalproex Sodium (Depakote Sprinkles) 750 mg BID PO Last administered on at 09:21; Start 08/01/17 at 21:00; Stop 08/04/17 at 14:28; Status DC Al Hydroxide/Mg Hydroxide (Mylanta Plus Xs) 30 ml PRN AFTMEAL PRN PO DYSPEPSIA Last administered on 09/01/17at 09:03; Start 08/03/17 at 12:00 Magnesium Hydroxide (Milk Of Magnesia) 2,400 mg PRN DAILY PRN PO CONSTIPATION Last administered on 08/14/17 20:28; Start 08/03/17 at 17:00 Divalproex Sodium (Depakote Sprinkles) 1,000 mg BID PO Last administered on at 07:51; Start 08/04/17 at 21:00; Stop 08/07/17 at 18:35; Status DC Polyethylene Glycol (miraLAX) 17 gm DAILY PO Last administered on 09/06/17at 08: 03; Start 08/05/17 at 09:00 Trazodone HCl (Desyrel) 100 mg QHS PO Last administered on 08/18/17at 19:34; Start 08/06/17 at 21:00; Stop 08/19/17 at 18:44; Status DC Trazodone HCl (Desyrel) 100 mg PRN QHS PRN PO INSOMNIA Last administered on at 21:05; Start 08/06/17 at 19:00; Stop 08/19/17 at 18:44; Status DC Divalproex Sodium (Depakote Sprinkles) 1,250 mg BID PO Last administered on 20:51; Start 08/07/17 at 21:00; Stop 08/09/17 at 18:31; Status DC Quetiapine Fumarate (SEROquel) 50 mg BID PO Last administered on 08/19/17 09: 19; Start 08/09/17 at 21:00; Stop 08/19/17 at 10:47; Status DC Divalproex Sodium (Depakote Sprinkles) 1,500 mg BID PO Last administered on at 08:25; Start 08/09/17 at 21:00; Stop 08/12/17 at 10:53; Status DC Trazodone HCl (Desyrel) 25 mg TID@0900,1300,1700 PO Last administered on at 17:10; Start 08/12/17 at 09:00; Stop 08/13/17 at 18:00; Status DC Divalproex Sodium (Depakote Sprinkles) 1,750 mg BID PO Last administered on at 09:32; Start 08/12/17 at 21:00; Stop 08/16/17 at 18:48; Status DC Trazodone HCl (Desyrel) 25 mg BID@1300,1700 PO Last administered on 09/06/17 16:45; Start 08/14/17 at 13:00 Trazodone HCl (Desyrel) 50 mg DAILY PO Last administered on 09/06/17at 08:04; Start 08/14/17 at 09:00 Trazodone HCl (Desyrel) 50 mg 1X ONCE PO Last administered on 08/13/17at 18:29 ; Start 08/13/17 at 18:30; Stop 08/13/17 at 18:31; Status DC Sertraline HCl (Zoloft) 25 mg DAILY PO Last administered on 08/17/17at 07:47; Start 08/15/17 at 09:00; Stop 08/17/17 at 11:00; Status DC Sertraline HCl (Zoloft) 50 mg DAILY PO Last administered on 09/06/17at 08:03; Start 08/18/17 at 09:00 Divalproex Sodium (Depakote Sprinkles) 2,000 mg BID PO Last administered on 08/23at 09:05; Start 08/16/17 at 21:00; Stop 08/23/17 at 18:02; Status DC Buspirone HCl (Buspar) 5 mg TID@0900,1300,1700 PO Last administered on at 16:45; Start 08/17/17 at 09:00 Quetiapine Fumarate (SEROquel) 50 mg TID@0900,1300,1700 PO Last administered on 09/06/17 16:45; Start 08/19/17 at 13:00 Mirtazapine (Remeron) 7.5 mg QHS PO Last administered on 09/06/17at 20:09; Start 08/19/17 at 21:00 Hydroxyzine HCl (Atarax) 50 mg PRN QHS PRN PO INSOMNIA, MAY REPEAT X1 Last administered on 09/01/17at 00:28; Start 08/20/17 at 22:30 Divalproex Sodium (Depakote Sprinkles) 2,250 mg BID PO Last administered on 08/26 09:06; Start 08/23/17 at 21:00; Stop 08/26/17 at 10:43; Status DC Divalproex Sodium (Depakote Sprinkles) 2,500 mg BID PO Last administered on 08/28at 19:42; Start 08/26/17 at 21:00; Stop 08/28/17 at 22:15; Status DC Iohexol (Omnipaque 300 Mg/ml) 75 ml 1X ONCE IV Last administered on 08/27/17at 22:59; Start 08/27/17 at 19:00; Stop 08/27/17 at 19:04; Status DC Divalproex Sodium (Depakote Sprinkles) 1,250 mg QID PO Last administered on 08/29at 17:13; Start 08/29/17 at 09:00; Stop 08/29/17 at 17:51; Status DC Divalproex Sodium (Depakote Sprinkles) 1,250 mg BID@0900,1200 PO ; Start at 09:00; Stop 08/30/17 at 09:11; Status DC Divalproex Sodium (Depakote Sprinkles) 1,375 mg BID@1700,2100 PO Last administered on 08/29/17at 19:48; Start 08/29/17 at 21:00; Stop 08/30/17 at 09:11; Status DC Valproic Acid (Depakene) 1,375 mg BID@1700,2100 PO Last administered on at 20:08; Start 08/30/17 at 17:00 Valproic Acid (Depakene) 1,250 mg BID@0900,1200 PO Last administered on at 12:00; Start 08/30/17 at 09:15 Multi-Ingredient Ointment (Analgesic [place]) 1 carlee PRN QID PRN TP MUSCLE PAIN Last administered on 09/01/17at 19:35; Start 09/01/17 at 19:15 Active Scripts Active Reported Ibuprofen 400 Mg Tablet 400 Mg PO PRN Q4HRS PRN MDD 1200mg/24hrs Lorazepam 2 Mg/1 Ml Vial 1 Mg IM BID PRN Abilify Maintena (Aripiprazole) 400 Mg Suser.vial 400 Mg IM Q4WK Next dose due 08/26/17 Paroxetine Hcl 20 Mg Tablet 10 Mg PO DAILY Abilify (Aripiprazole) 5 Mg Tablet 5 Mg PO DAILY Fenofibrate 160 Mg Tablet 160 Mg PO QHS Olanzapine 5 Mg Tablet 5 Mg PO DAILY@1400 5mg PO daily at 14:00 Methylphenidate Hcl 10 Mg Tablet 10 Mg PO BID@0900,1300 Seroquel (Quetiapine Fumarate) 100 Mg Tablet 100 Mg PO BID Prevident 5000 (Sodium Fluoride) 100 Ml Gel..ml. 1 Carlee DT BID Selenium Sulfide 180 Ml Shampoo 1 Carlee TP TWICE WEEKLY Lorazepam 1 Mg Tablet 1 Mg PO PRN BID PRN Acetaminophen 500 Mg Tablet 500 Mg PO PRN Q4HRS PRN Risperdal Consta (Risperidone Microspheres) 25 Mg/2 Ml Disp.syrin 25 Mg IM Q2WKS Phenytoin 125 Mg/5 Ml Oral.susp 300 Mg PO QHS Zyprexa (Olanzapine) 20 Mg Tablet 20 Mg PO QHS Atorvastatin Calcium 10 Mg Tablet 10 Mg PO QHS Zyprexa (Olanzapine) 5 Mg Tablet 5 Mg PO DAILY@1400 Clozapine 200 Mg Tablet 500 Mg PO QHS Clozapine 200 Mg Tablet 200 Mg PO DAILY Detrol La (Tolterodine Tartrate) 2 Mg Cap.er.24h 2 Mg PO BID Depakote Er (Divalproex Sodium) 500 Mg Tab.er.24h 500 Mg PO DAILY Depakote Er (Divalproex Sodium) 500 Mg Tab.er.24h 1,000 Mg PO QHS [place] 3 1,000 Mg Softgel ([place]-3 Fatty Acids/Fish Oil) 1 Each Capsule 1,000 Mg PO DAILY Thera-M Tablet (Multivits,Ca,Minerals/Iron/Fa) 1 Each Tablet 1 Tab PO DAILY Vitamin D3 (Cholecalciferol (Vitamin D3)) 1,000 Unit Tablet 2,000 Unit PO DAILY Olanzapine 10 Mg Tablet 10 Mg PO DAILY Miralax (Polyethylene Glycol 3350) 119 Gm Powder 17 Gm PO DAILY Levothyroxine Sodium 200 Mcg Tablet 200 Mcg PO DAILY06 Pantoprazole Sodium 40 Mg Tablet.dr 40 Mg PO DAILY I have reviewed the current psychotropics carefully including drug interactions. Risk benefit ratio favors no change other than as noted in my dictated progress note. Diagnosis: Problems: (1) Dementia in Alzheimer's disease with delusions (2) Impulse control disorder (3) Schizoaffective disorder, chronic condition with acute exacerbation (4) Borderline intellectual disability STEVEN AYALA MD Sep 06, 2017 21:06
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
[2017-09-07] MEDS: LEVOTHYROXINE 100 MCG TABLET PO SCH (06:05)
[2017-09-07 07:04] VITALS: BP 107/64
[2017-09-07] MEDS: QUEtiapine 50 MG TABLET. PO SCH ×3 (08:07→16:50)
[2017-09-07] MEDS: OXYBUTYNIN CHLORIDE 5 MG TABLET PO SCH ×3 (08:07→19:36)
[2017-09-07] MEDS: traZODone 50 MG TABLET. PO SCH ×3 (08:07→16:50)
[2017-09-07] MEDS: SERTRALINE 25 MG TABLET. PO SCH (08:07)
[2017-09-07] MEDS: busPIRone 5 MG TABLET. PO SCH ×3 (08:07→16:50)
[2017-09-07] MEDS: VALPROATE ACID 250 MG/5 ML ORAL SOLUTION PO SCH ×4 (08:08→19:41)
[2017-09-07] MEDS: cloZAPine 100 MG TABLET PO SCH ×2 (08:08→19:37)
[2017-09-07] MEDS: POLYETHYLENE GLYCOL 3350 17 GM PACKET. PO SCH (08:09)
[2017-09-07 15:42] VITALS: BP 107/71
[2017-09-07] MEDS: MIRTAZAPINE 7.5 MG TABLET. PO SCH (19:36)
[2017-09-07] MEDS: PHENYTOIN SODIUM EXTENDED 100 MG CAPSULE PO SCH (19:36)
[2017-09-07] MEDS: ATORVASTATIN CALCIUM 10 MG TABLET. PO SCH (19:36)
--- NOTE | 2017-09-07 20:54 | PDOC ---
Exam Note: Chad Note: Please also refer to the separate dictated note~for this date of service dictated separately.~Patient seen individually. Discussed the patient with Nursing staff reviewed the chart.~Reviewed interim history and current functioning. Reviewed vital signs,~Labs/ Radiology~and current medications noted below. Continue current treatment with the changes noted in the dictated addendum note Assessment: Vital Signs: Vital Signs Date Time Temp Pulse Resp B/P (MAP) Pulse Ox O2 Delivery O2 Flow Rate FiO2 09/07/17 15:42 97.2 80 20 107/71 (83) 100 09/04/17 16:25 Room Air I&O Intake and Output 09/07/17 07:00 Intake Total 1200 ml Balance 1200 ml Intake Oral 1200 ml # Voids 1 # Bowel Movements 1 Current Medications: Meds: Current Medications Valproic Acid (Depakene) 500 mg STAT PO Last administered on 07/30/17at 21:21; Start 07/30/17 at 20:49; Stop 08/01/17 at 15:23; Status DC Divalproex Sodium (Depakote Er) 1,000 mg QHS PO ; Start 07/31/17 at 21:00; Stop 07/31/17 at 21:00; Status DC Divalproex Sodium (Depakote Er) 500 mg DAILY PO ; Start 07/31/17 at 09:00; Stop 07/31/17 at 09:00; Status DC Lorazepam (Ativan) 1 mg PRN BID PRN PO ANXIETY / AGITATION Last administered on 09/05/17at 13:07; Start 07/30/17 at 23:00 Olanzapine (ZyPREXA) 10 mg DAILY PO ; Start 07/31/17 at 09:00; Stop 07/31/17 at 09:00; Status DC Olanzapine (ZyPREXA) 5 mg DAILY@1400 PO ; Start 07/31/17 at 14:00; Stop at 14:00; Status DC Risperidone (RisperDAL CONSTA) 25 mg Q2WKS IM ; Start 08/13/17 at 09:00; Status UNV Clozapine (Clozaril) 200 mg DAILY PO Last administered on 09/07/17at 08:08; Start 07/31/17 at 09:00 Clozapine (Clozaril) 500 mg QHS PO Last administered on 09/07/17at 19:37; Start 07/31/17 at 21:00 Olanzapine (ZyPREXA) 20 mg QHS PO Last administered on 07/31/17 20:28; Start 07/31/17 at 21:00; Stop 08/01/17 at 09:51; Status DC Atorvastatin Calcium (Lipitor) 10 mg QHS PO ; Start 07/31/17 at 21:00; Stop 03/10 at 21:00; Status DC Phenytoin Sodium (Dilantin) 300 mg QHS PO Last administered on 09/07/17at 19:36 ; Start 07/31/17 at 21:00 Non-Formulary Medication (Sodium Fluoride (Prevident 5000)) 1 carlee BID DT ; Start 07/31/17 at 09:00; Stop 07/31/17 at 09:00; Status DC Oxybutynin Chloride (Ditropan) 5 mg [id number] PO Last administered on 09/07/17at 19 :36; Start 07/31/17 at 09:00 Quetiapine Fumarate (SEROquel) 100 mg BID PO Last administered on 08/08/17at 20: 51; Start 07/31/17 at 09:00; Stop 08/09/17 at 18:03; Status DC Acetaminophen (Tylenol) 500 mg PRN Q4HRS PRN PO PAIN Last administered on at 13:21; Start 07/31/17 at 07:15 Levothyroxine Sodium (Synthroid) 200 mcg DAILY06 PO Last administered on at 06:05; Start 07/31/17 at 07:15 Fish Oil (Fish Oil) 1,000 mg DAILY PO Last administered on 07/31/17at 09:36; Start 07/31/17 at 09:00; Stop 08/01/17 at 09:51; Status DC Selenium Sulfide (Selsun) 1 carlee TWICEWEEKLY TP ; Start 07/31/17 at 07:30; Stop 07/31/17 at 14:29; Status DC Divalproex Sodium (Depakote Er) 1,000 mg QHS PO Last administered on 07/31/17at 20:26; Start 07/31/17 at 21:00; Stop 08/01/17 at 18:29; Status DC Atorvastatin Calcium (Lipitor) 10 mg QHS PO Last administered on 09/07/17at 19: 36; Start 07/31/17 at 21:00 Divalproex Sodium (Depakote Er) 500 mg DAILY PO Last administered on 08/01/17at 09:10; Start 07/31/17 at 09:00; Stop 08/01/17 at 09:51; Status DC Olanzapine (ZyPREXA) 10 mg DAILY PO Last administered on 08/01/17at 09:30; Start 07/31/17 at 09:00; Stop 08/01/17 at 09:51; Status DC Olanzapine (ZyPREXA) 5 mg DAILY@1400 PO Last administered on 07/31/17at 15:07; Start 07/31/17 at 14:00; Stop 08/01/17 at 09:51; Status DC Selenium Sulfide (Selsun) 1 carlee TWICEWEEKLY TP ; Start 07/31/17 at 14:29 Divalproex Sodium (Depakote Er) 750 mg DAILY PO ; Start 08/02/17 at 09:00; Stop 08/02/17 at 09:00; Status DC Divalproex Sodium (Depakote Sprinkles) 750 mg BID PO Last administered on at 09:21; Start 08/01/17 at 21:00; Stop 08/04/17 at 14:28; Status DC Al Hydroxide/Mg Hydroxide (Mylanta Plus Xs) 30 ml PRN AFTMEAL PRN PO DYSPEPSIA Last administered on 09/01/17at 09:03; Start 08/03/17 at 12:00 Magnesium Hydroxide (Milk Of Magnesia) 2,400 mg PRN DAILY PRN PO CONSTIPATION Last administered on 08/14/17at 20:28; Start 08/03/17 at 17:00 Divalproex Sodium (Depakote Sprinkles) 1,000 mg BID PO Last administered on at 07:51; Start 08/04/17 at 21:00; Stop 08/07/17 at 18:35; Status DC Polyethylene Glycol (miraLAX) 17 gm DAILY PO Last administered on 09/07/17at 08: 09; Start 08/05/17 at 09:00 Trazodone HCl (Desyrel) 100 mg QHS PO Last administered on 08/18/17at 19:34; Start 08/06/17 at 21:00; Stop 08/19/17 at 18:44; Status DC Trazodone HCl (Desyrel) 100 mg PRN QHS PRN PO INSOMNIA Last administered on at 21:05; Start 08/06/17 at 19:00; Stop 08/19/17 at 18:44; Status DC Divalproex Sodium (Depakote Sprinkles) 1,250 mg BID PO Last administered on at 20:51; Start 08/07/17 at 21:00; Stop 08/09/17 at 18:31; Status DC Quetiapine Fumarate (SEROquel) 50 mg BID PO Last administered on 08/19/17at 09: 19; Start 08/09/17 at 21:00; Stop 08/19/17 at 10:47; Status DC Divalproex Sodium (Depakote Sprinkles) 1,500 mg BID PO Last administered on at 08:25; Start 08/09/17 at 21:00; Stop 08/12/17 at 10:53; Status DC Trazodone HCl (Desyrel) 25 mg TID@0900,1300,1700 PO Last administered on at 17:10; Start 08/12/17 at 09:00; Stop 08/13/17 at 18:00; Status DC Divalproex Sodium (Depakote Sprinkles) 1,750 mg BID PO Last administered on at 09:32; Start 08/12/17 at 21:00; Stop 08/16/17 at 18:48; Status DC Trazodone HCl (Desyrel) 25 mg BID@1300,1700 PO Last administered on 09/07/17at 16:50; Start 08/14/17 at 13:00 Trazodone HCl (Desyrel) 50 mg DAILY PO Last administered on 09/07/17at 08:07; Start 08/14/17 at 09:00 Trazodone HCl (Desyrel) 50 mg 1X ONCE PO Last administered on 08/13/17at 18:29 ; Start 08/13/17 at 18:30; Stop 08/13/17 at 18:31; Status DC Sertraline HCl (Zoloft) 25 mg DAILY PO Last administered on 08/17/17 07:47; Start 08/15/17 at 09:00; Stop 08/17/17 at 11:00; Status DC Sertraline HCl (Zoloft) 50 mg DAILY PO Last administered on 09/07/17 08:07; Start 08/18/17 at 09:00 Divalproex Sodium (Depakote Sprinkles) 2,000 mg BID PO Last administered on 08/23 09:05; Start 08/16/17 at 21:00; Stop 08/23/17 at 18:02; Status DC Buspirone HCl (Buspar) 5 mg TID@0900,1300,1700 PO Last administered on 16:50; Start 08/17/17 at 09:00 Quetiapine Fumarate (SEROquel) 50 mg TID@0900,1300,1700 PO Last administered on 09/07/17 16:50; Start 08/19/17 at 13:00 Mirtazapine (Remeron) 7.5 mg QHS PO Last administered on 09/07/17 19:36; Start 08/19/17 at 21:00 Hydroxyzine HCl (Atarax) 50 mg PRN QHS PRN PO INSOMNIA, MAY REPEAT X1 Last administered on 09/01/17 00:28; Start 08/20/17 at 22:30 Divalproex Sodium (Depakote Sprinkles) 2,250 mg BID PO Last administered on 08/26 09:06; Start 08/23/17 at 21:00; Stop 08/26/17 at 10:43; Status DC Divalproex Sodium (Depakote Sprinkles) 2,500 mg BID PO Last administered on 08/28 19:42; Start 08/26/17 at 21:00; Stop 08/28/17 at 22:15; Status DC Iohexol (Omnipaque 300 Mg/ml) 75 ml 1X ONCE IV Last administered on 08/27/17 22:59; Start 08/27/17 at 19:00; Stop 08/27/17 at 19:04; Status DC Divalproex Sodium (Depakote Sprinkles) 1,250 mg QID PO Last administered on 4/8 /18at 17:13; Start 08/29/17 at 09:00; Stop 08/29/17 at 17:51; Status DC Divalproex Sodium (Depakote Sprinkles) 1,250 mg BID@0900,1200 PO ; Start at 09:00; Stop 08/30/17 at 09:11; Status DC Divalproex Sodium (Depakote Sprinkles) 1,375 mg BID@1700,2100 PO Last administered on 08/29/17at 19:48; Start 08/29/17 at 21:00; Stop 08/30/17 at 09:11; Status DC Valproic Acid (Depakene) 1,375 mg BID@1700,2100 PO Last administered on at 19:41; Start 08/30/17 at 17:00 Valproic Acid (Depakene) 1,250 mg BID@0900,1200 PO Last administered on at 11:38; Start 08/30/17 at 09:15 Multi-Ingredient Ointment (Analgesic [place]) 1 carlee PRN QID PRN TP MUSCLE PAIN Last administered on 09/01/17at 19:35; Start 09/01/17 at 19:15 Active Scripts Active Reported Ibuprofen 400 Mg Tablet 400 Mg PO PRN Q4HRS PRN MDD 1200mg/24hrs Lorazepam 2 Mg/1 Ml Vial 1 Mg IM BID PRN Abilify Maintena (Aripiprazole) 400 Mg Suser.vial 400 Mg IM Q4WK Next dose due 08/26/17 Paroxetine Hcl 20 Mg Tablet 10 Mg PO DAILY Abilify (Aripiprazole) 5 Mg Tablet 5 Mg PO DAILY Fenofibrate 160 Mg Tablet 160 Mg PO QHS Olanzapine 5 Mg Tablet 5 Mg PO DAILY@1400 5mg PO daily at 14:00 Methylphenidate Hcl 10 Mg Tablet 10 Mg PO BID@0900,1300 Seroquel (Quetiapine Fumarate) 100 Mg Tablet 100 Mg PO BID Prevident 5000 (Sodium Fluoride) 100 Ml Gel..ml. 1 Carlee DT BID Selenium Sulfide 180 Ml Shampoo 1 Carlee TP TWICE WEEKLY Lorazepam 1 Mg Tablet 1 Mg PO PRN BID PRN Acetaminophen 500 Mg Tablet 500 Mg PO PRN Q4HRS PRN Risperdal Consta (Risperidone Microspheres) 25 Mg/2 Ml Disp.syrin 25 Mg IM Q2WKS Phenytoin 125 Mg/5 Ml Oral.susp 300 Mg PO QHS Zyprexa (Olanzapine) 20 Mg Tablet 20 Mg PO QHS Atorvastatin Calcium 10 Mg Tablet 10 Mg PO QHS Zyprexa (Olanzapine) 5 Mg Tablet 5 Mg PO DAILY@1400 Clozapine 200 Mg Tablet 500 Mg PO QHS Clozapine 200 Mg Tablet 200 Mg PO DAILY Detrol La (Tolterodine Tartrate) 2 Mg Cap.er.24h 2 Mg PO BID Depakote Er (Divalproex Sodium) 500 Mg Tab.er.24h 500 Mg PO DAILY Depakote Er (Divalproex Sodium) 500 Mg Tab.er.24h 1,000 Mg PO QHS [place] 3 1,000 Mg Softgel ([place]-3 Fatty Acids/Fish Oil) 1 Each Capsule 1,000 Mg PO DAILY Thera-M Tablet (Multivits,Ca,Minerals/Iron/Fa) 1 Each Tablet 1 Tab PO DAILY Vitamin D3 (Cholecalciferol (Vitamin D3)) 1,000 Unit Tablet 2,000 Unit PO DAILY Olanzapine 10 Mg Tablet 10 Mg PO DAILY Miralax (Polyethylene Glycol 3350) 119 Gm Powder 17 Gm PO DAILY Levothyroxine Sodium 200 Mcg Tablet 200 Mcg PO DAILY06 Pantoprazole Sodium 40 Mg Tablet.dr 40 Mg PO DAILY I have reviewed the current psychotropics carefully including drug interactions. Risk benefit ratio favors no change other than as noted in my dictated progress note. Diagnosis: Problems: (1) Dementia in Alzheimer's disease with delusions (2) Impulse control disorder (3) Schizoaffective disorder, chronic condition with acute exacerbation (4) Borderline intellectual disability STEVEN AYALA MD Sep 07, 2017 20:54
--- NOTE | 2017-09-07 22:44 | PN ---
DATE: 09/07/2017 This late entry 09/06/2017 covers elements not covered in my initial note 09/06/2017. Met with the patient in the evening of 09/06/2017. Overall, the patient has been somewhat withdrawn, depressed. The previous night he had thrown up per nursing staff. Absolute neutrophil count is 2.2 and we are having the pharmacy follow it on account of his Clozaril. For now, it is appropriate to continue. REVIEW OF SYSTEMS: No CV, , pulmonary, eye, ENT system symptoms on review. Reliability varies. MENTAL STATUS EXAM: Oriented to himself and situation. Speech coherent, rapid at times. Abstraction fair, computation impaired, language function intact. Mood and affect somewhat labile. LABORATORY DATA: Reviewed. IMPRESSION: Schizoaffective disorder, bipolar type. Rest unchanged. Intellectual disability. PLAN: Continue current psychotropics. Adjust further as clinically indicated. MAN Suleman AYALA MD DR: ADALBERTO/garry JOB#: [id number] / [id number]
[2017-09-08] MEDS: LEVOTHYROXINE 100 MCG TABLET PO SCH (05:40)
[2017-09-08 06:11] VITALS: BP 96/58
[2017-09-08] MEDS: busPIRone 5 MG TABLET. PO SCH ×3 (07:43→17:43)
[2017-09-08] MEDS: QUEtiapine 50 MG TABLET. PO SCH ×3 (07:44→17:43)
[2017-09-08] MEDS: OXYBUTYNIN CHLORIDE 5 MG TABLET PO SCH ×3 (07:44→20:38)
[2017-09-08] MEDS: cloZAPine 100 MG TABLET PO SCH ×2 (07:44→20:38)
[2017-09-08] MEDS: SERTRALINE 25 MG TABLET. PO SCH (07:44)
[2017-09-08] MEDS: traZODone 50 MG TABLET. PO SCH ×3 (07:44→17:43)
[2017-09-08] MEDS: VALPROATE ACID 250 MG/5 ML ORAL SOLUTION PO SCH ×4 (07:45→20:38)
[2017-09-08] MEDS: POLYETHYLENE GLYCOL 3350 17 GM PACKET. PO SCH (07:46)
[2017-09-08 16:23] VITALS: BP 97/55
--- NOTE | 2017-09-08 18:30 | PN ---
DATE: 09/07/2017 PSYCHIATRIC PROGRESS NOTE This is a late entry of 09/07/2017, covers elements not covered in my initial note of 09/07/2017. I met with the patient in the evening of 09/07/2017. HISTORY OF PRESENT ILLNESS: The patient slept 7 hours previous evening, somewhat withdrawn at night, upset at breakfast time, threw up his medications, a little more social in the evening. REVIEW OF SYSTEMS: Positive for some GI symptoms. No CV, , pulmonary, eye system symptoms on review. MENTAL STATUS EXAM: Oriented to himself and situation. Speech is coherent, less pressured. Abstraction fair, computation impaired, language function intact. Mood and affect remain somewhat labile, but improved. LABORATORY DATA: Reviewed. IMPRESSION: Schizoaffective disorder, bipolar type and intellectual disability. PLAN: Continue psychotropics mentioned in my initial note. Defer medical management to Dr. Case. STEVEN AYALA MD DR: ADALBERTO/garry JOB#: [id number] / [id number]
[2017-09-08] MEDS: ATORVASTATIN CALCIUM 10 MG TABLET. PO SCH (20:38)
[2017-09-08] MEDS: MIRTAZAPINE 7.5 MG TABLET. PO SCH (20:38)
[2017-09-08] MEDS: PHENYTOIN SODIUM EXTENDED 100 MG CAPSULE PO SCH (20:38)
--- NOTE | 2017-09-08 21:14 | PDOC ---
Exam Note: Chad Note: Please also refer to the separate dictated note~for this date of service dictated separately.~Patient seen individually. Discussed the patient with Nursing staff reviewed the chart.~Reviewed interim history and current functioning. Reviewed vital signs,~Labs/ Radiology~and current medications noted below. Continue current treatment with the changes noted in the dictated addendum note Assessment: Vital Signs: Vital Signs Date Time Temp Pulse Resp B/P (MAP) Pulse Ox O2 Delivery O2 Flow Rate FiO2 09/08/17 16:23 97.4 72 18 97/55 (69) 98 09/04/17 16:25 Room Air I&O Intake and Output 09/08/17 07:00 Intake Total 1080 ml Balance 1080 ml Intake Oral 1080 ml # Bowel Movements 1 Current Medications: Meds: Current Medications Valproic Acid (Depakene) 500 mg STAT PO Last administered on 07/30/17at 21:21; Start 07/30/17 at 20:49; Stop 08/01/17 at 15:23; Status DC Divalproex Sodium (Depakote Er) 1,000 mg QHS PO ; Start 07/31/17 at 21:00; Stop 07/31/17 at 21:00; Status DC Divalproex Sodium (Depakote Er) 500 mg DAILY PO ; Start 07/31/17 at 09:00; Stop 07/31/17 at 09:00; Status DC Lorazepam (Ativan) 1 mg PRN BID PRN PO ANXIETY / AGITATION Last administered on 09/05/17at 13:07; Start 07/30/17 at 23:00 Olanzapine (ZyPREXA) 10 mg DAILY PO ; Start 07/31/17 at 09:00; Stop 07/31/17 at 09:00; Status DC Olanzapine (ZyPREXA) 5 mg DAILY@1400 PO ; Start 07/31/17 at 14:00; Stop at 14:00; Status DC Risperidone (RisperDAL CONSTA) 25 mg Q2WKS IM ; Start 08/13/17 at 09:00; Status UNV Clozapine (Clozaril) 200 mg DAILY PO Last administered on 09/08/17at 07:44; Start 07/31/17 at 09:00 Clozapine (Clozaril) 500 mg QHS PO Last administered on 09/08/17at 20:38; Start 07/31/17 at 21:00 Olanzapine (ZyPREXA) 20 mg QHS PO Last administered on 07/31/17 20:28; Start 07/31/17 at 21:00; Stop 08/01/17 at 09:51; Status DC Atorvastatin Calcium (Lipitor) 10 mg QHS PO ; Start 07/31/17 at 21:00; Stop 03/10 at 21:00; Status DC Phenytoin Sodium (Dilantin) 300 mg QHS PO Last administered on 09/08/17 20:38 ; Start 07/31/17 at 21:00 Non-Formulary Medication (Sodium Fluoride (Prevident 5000)) 1 carlee BID DT ; Start 07/31/17 at 09:00; Stop 07/31/17 at 09:00; Status DC Oxybutynin Chloride (Ditropan) 5 mg [id number] PO Last administered on 09/08/17 20 :38; Start 07/31/17 at 09:00 Quetiapine Fumarate (SEROquel) 100 mg BID PO Last administered on 08/08/17 20: 51; Start 07/31/17 at 09:00; Stop 08/09/17 at 18:03; Status DC Acetaminophen (Tylenol) 500 mg PRN Q4HRS PRN PO PAIN Last administered on 13:21; Start 07/31/17 at 07:15 Levothyroxine Sodium (Synthroid) 200 mcg DAILY06 PO Last administered on at 05:40; Start 07/31/17 at 07:15 Fish Oil (Fish Oil) 1,000 mg DAILY PO Last administered on 07/31/17at 09:36; Start 07/31/17 at 09:00; Stop 08/01/17 at 09:51; Status DC Selenium Sulfide (Selsun) 1 carlee TWICEWEEKLY TP ; Start 07/31/17 at 07:30; Stop 07/31/17 at 14:29; Status DC Divalproex Sodium (Depakote Er) 1,000 mg QHS PO Last administered on 07/31/17 20:26; Start 07/31/17 at 21:00; Stop 08/01/17 at 18:29; Status DC Atorvastatin Calcium (Lipitor) 10 mg QHS PO Last administered on 4/18/18at 20: 38; Start 07/31/17 at 21:00 Divalproex Sodium (Depakote Er) 500 mg DAILY PO Last administered on 08/01/17at 09:10; Start 07/31/17 at 09:00; Stop 08/01/17 at 09:51; Status DC Olanzapine (ZyPREXA) 10 mg DAILY PO Last administered on 08/01/17at 09:30; Start 07/31/17 at 09:00; Stop 08/01/17 at 09:51; Status DC Olanzapine (ZyPREXA) 5 mg DAILY@1400 PO Last administered on 07/31/17at 15:07; Start 07/31/17 at 14:00; Stop 08/01/17 at 09:51; Status DC Selenium Sulfide (Selsun) 1 carlee TWICEWEEKLY TP ; Start 07/31/17 at 14:29 Divalproex Sodium (Depakote Er) 750 mg DAILY PO ; Start 08/02/17 at 09:00; Stop 08/02/17 at 09:00; Status DC Divalproex Sodium (Depakote Sprinkles) 750 mg BID PO Last administered on at 09:21; Start 08/01/17 at 21:00; Stop 08/04/17 at 14:28; Status DC Al Hydroxide/Mg Hydroxide (Mylanta Plus Xs) 30 ml PRN AFTMEAL PRN PO DYSPEPSIA Last administered on 09/01/17 09:03; Start 08/03/17 at 12:00 Magnesium Hydroxide (Milk Of Magnesia) 2,400 mg PRN DAILY PRN PO CONSTIPATION Last administered on 08/14/17at 20:28; Start 08/03/17 at 17:00 Divalproex Sodium (Depakote Sprinkles) 1,000 mg BID PO Last administered on at 07:51; Start 08/04/17 at 21:00; Stop 08/07/17 at 18:35; Status DC Polyethylene Glycol (miraLAX) 17 gm DAILY PO Last administered on 09/08/17at 07: 46; Start 08/05/17 at 09:00 Trazodone HCl (Desyrel) 100 mg QHS PO Last administered on 08/18/17at 19:34; Start 08/06/17 at 21:00; Stop 08/19/17 at 18:44; Status DC Trazodone HCl (Desyrel) 100 mg PRN QHS PRN PO INSOMNIA Last administered on at 21:05; Start 08/06/17 at 19:00; Stop 08/19/17 at 18:44; Status DC Divalproex Sodium (Depakote Sprinkles) 1,250 mg BID PO Last administered on at 20:51; Start 08/07/17 at 21:00; Stop 08/09/17 at 18:31; Status DC Quetiapine Fumarate (SEROquel) 50 mg BID PO Last administered on 08/19/17at 09: 19; Start 08/09/17 at 21:00; Stop 08/19/17 at 10:47; Status DC Divalproex Sodium (Depakote Sprinkles) 1,500 mg BID PO Last administered on at 08:25; Start 08/09/17 at 21:00; Stop 08/12/17 at 10:53; Status DC Trazodone HCl (Desyrel) 25 mg TID@0900,1300,1700 PO Last administered on at 17:10; Start 08/12/17 at 09:00; Stop 08/13/17 at 18:00; Status DC Divalproex Sodium (Depakote Sprinkles) 1,750 mg BID PO Last administered on at 09:32; Start 08/12/17 at 21:00; Stop 08/16/17 at 18:48; Status DC Trazodone HCl (Desyrel) 25 mg BID@1300,1700 PO Last administered on 09/08/17at 17:43; Start 08/14/17 at 13:00 Trazodone HCl (Desyrel) 50 mg DAILY PO Last administered on 09/08/17at 07:44; Start 08/14/17 at 09:00 Trazodone HCl (Desyrel) 50 mg 1X ONCE PO Last administered on 08/13/17at 18:29 ; Start 08/13/17 at 18:30; Stop 08/13/17 at 18:31; Status DC Sertraline HCl (Zoloft) 25 mg DAILY PO Last administered on 08/17/17at 07:47; Start 08/15/17 at 09:00; Stop 08/17/17 at 11:00; Status DC Sertraline HCl (Zoloft) 50 mg DAILY PO Last administered on 09/08/17at 07:44; Start 08/18/17 at 09:00 Divalproex Sodium (Depakote Sprinkles) 2,000 mg BID PO Last administered on 08/23 09:05; Start 08/16/17 at 21:00; Stop 08/23/17 at 18:02; Status DC Buspirone HCl (Buspar) 5 mg TID@0900,1300,1700 PO Last administered on 17:43; Start 08/17/17 at 09:00 Quetiapine Fumarate (SEROquel) 50 mg TID@0900,1300,1700 PO Last administered on 09/08/17 17:43; Start 08/19/17 at 13:00 Mirtazapine (Remeron) 7.5 mg QHS PO Last administered on 09/08/17at 20:38; Start 08/19/17 at 21:00 Hydroxyzine HCl (Atarax) 50 mg PRN QHS PRN PO INSOMNIA, MAY REPEAT X1 Last administered on 09/01/17at 00:28; Start 08/20/17 at 22:30 Divalproex Sodium (Depakote Sprinkles) 2,250 mg BID PO Last administered on 08/26 09:06; Start 08/23/17 at 21:00; Stop 08/26/17 at 10:43; Status DC Divalproex Sodium (Depakote Sprinkles) 2,500 mg BID PO Last administered on 08/28 19:42; Start 08/26/17 at 21:00; Stop 08/28/17 at 22:15; Status DC Iohexol (Omnipaque 300 Mg/ml) 75 ml 1X ONCE IV Last administered on 08/27/17at 22:59; Start 08/27/17 at 19:00; Stop 08/27/17 at 19:04; Status DC Divalproex Sodium (Depakote Sprinkles) 1,250 mg QID PO Last administered on 4/8 /18at 17:13; Start 08/29/17 at 09:00; Stop 08/29/17 at 17:51; Status DC Divalproex Sodium (Depakote Sprinkles) 1,250 mg BID@0900,1200 PO ; Start at 09:00; Stop 08/30/17 at 09:11; Status DC Divalproex Sodium (Depakote Sprinkles) 1,375 mg BID@1700,2100 PO Last administered on 08/29/17at 19:48; Start 08/29/17 at 21:00; Stop 08/30/17 at 09:11; Status DC Valproic Acid (Depakene) 1,375 mg BID@1700,2100 PO Last administered on at 20:38; Start 08/30/17 at 17:00 Valproic Acid (Depakene) 1,250 mg BID@0900,1200 PO Last administered on at 11:53; Start 08/30/17 at 09:15 Multi-Ingredient Ointment (Analgesic [place]) 1 carlee PRN QID PRN TP MUSCLE PAIN Last administered on 09/01/17at 19:35; Start 09/01/17 at 19:15 Active Scripts Active Reported Ibuprofen 400 Mg Tablet 400 Mg PO PRN Q4HRS PRN MDD 1200mg/24hrs Lorazepam 2 Mg/1 Ml Vial 1 Mg IM BID PRN Abilify Maintena (Aripiprazole) 400 Mg Suser.vial 400 Mg IM Q4WK Next dose due 08/26/17 Paroxetine Hcl 20 Mg Tablet 10 Mg PO DAILY Abilify (Aripiprazole) 5 Mg Tablet 5 Mg PO DAILY Fenofibrate 160 Mg Tablet 160 Mg PO QHS Olanzapine 5 Mg Tablet 5 Mg PO DAILY@1400 5mg PO daily at 14:00 Methylphenidate Hcl 10 Mg Tablet 10 Mg PO BID@0900,1300 Seroquel (Quetiapine Fumarate) 100 Mg Tablet 100 Mg PO BID Prevident 5000 (Sodium Fluoride) 100 Ml Gel..ml. 1 Carlee DT BID Selenium Sulfide 180 Ml Shampoo 1 Carlee TP TWICE WEEKLY Lorazepam 1 Mg Tablet 1 Mg PO PRN BID PRN Acetaminophen 500 Mg Tablet 500 Mg PO PRN Q4HRS PRN Risperdal Consta (Risperidone Microspheres) 25 Mg/2 Ml Disp.syrin 25 Mg IM Q2WKS Phenytoin 125 Mg/5 Ml Oral.susp 300 Mg PO QHS Zyprexa (Olanzapine) 20 Mg Tablet 20 Mg PO QHS Atorvastatin Calcium 10 Mg Tablet 10 Mg PO QHS Zyprexa (Olanzapine) 5 Mg Tablet 5 Mg PO DAILY@1400 Clozapine 200 Mg Tablet 500 Mg PO QHS Clozapine 200 Mg Tablet 200 Mg PO DAILY Detrol La (Tolterodine Tartrate) 2 Mg Cap.er.24h 2 Mg PO BID Depakote Er (Divalproex Sodium) 500 Mg Tab.er.24h 500 Mg PO DAILY Depakote Er (Divalproex Sodium) 500 Mg Tab.er.24h 1,000 Mg PO QHS [place] 3 1,000 Mg Softgel ([place]-3 Fatty Acids/Fish Oil) 1 Each Capsule 1,000 Mg PO DAILY Thera-M Tablet (Multivits,Ca,Minerals/Iron/Fa) 1 Each Tablet 1 Tab PO DAILY Vitamin D3 (Cholecalciferol (Vitamin D3)) 1,000 Unit Tablet 2,000 Unit PO DAILY Olanzapine 10 Mg Tablet 10 Mg PO DAILY Miralax (Polyethylene Glycol 3350) 119 Gm Powder 17 Gm PO DAILY Levothyroxine Sodium 200 Mcg Tablet 200 Mcg PO DAILY06 Pantoprazole Sodium 40 Mg Tablet.dr 40 Mg PO DAILY I have reviewed the current psychotropics carefully including drug interactions. Risk benefit ratio favors no change other than as noted in my dictated progress note. Diagnosis: Problems: (1) Dementia in Alzheimer's disease with delusions (2) Impulse control disorder (3) Schizoaffective disorder, chronic condition with acute exacerbation (4) Borderline intellectual disability STEVEN AYALA MD Sep 08, 2017 21:14
[2017-09-09] MEDS: MAG HYDROX/AL HYDROX/SIMETH 30 ML ORAL.SUSP PO PRN (00:29)
[2017-09-09] MEDS: hydrOXYzine HCL 25 MG TABLET PO PRN (01:18)
[2017-09-09] MEDS: LEVOTHYROXINE 100 MCG TABLET PO SCH (05:24)
[2017-09-09 05:47] VITALS: BP 111/37
[2017-09-09] MEDS: SERTRALINE 25 MG TABLET. PO SCH (07:45)
[2017-09-09] MEDS: OXYBUTYNIN CHLORIDE 5 MG TABLET PO SCH ×3 (07:45→19:46)
[2017-09-09] MEDS: busPIRone 5 MG TABLET. PO SCH ×3 (07:46→17:19)
[2017-09-09] MEDS: QUEtiapine 50 MG TABLET. PO SCH ×3 (07:46→17:19)
[2017-09-09] MEDS: cloZAPine 100 MG TABLET PO SCH ×2 (07:46→19:47)
[2017-09-09] MEDS: traZODone 50 MG TABLET. PO SCH ×3 (07:46→17:19)
[2017-09-09] MEDS: VALPROATE ACID 250 MG/5 ML ORAL SOLUTION PO SCH ×4 (07:47→19:49)
[2017-09-09] MEDS: POLYETHYLENE GLYCOL 3350 17 GM PACKET. PO SCH (07:47)
[2017-09-09 16:15] VITALS: BP 108/68
[2017-09-09] MEDS: MIRTAZAPINE 7.5 MG TABLET. PO SCH (19:46)
[2017-09-09] MEDS: ATORVASTATIN CALCIUM 10 MG TABLET. PO SCH (19:47)
[2017-09-09] MEDS: PHENYTOIN SODIUM EXTENDED 100 MG CAPSULE PO SCH (19:47)
--- NOTE | 2017-09-09 20:58 | PDOC ---
Exam Note: Chad Note: Please also refer to the separate dictated note~for this date of service dictated separately.~Patient seen individually. Discussed the patient with Nursing staff reviewed the chart.~Reviewed interim history and current functioning. Reviewed vital signs,~Labs/ Radiology~and current medications noted below. Continue current treatment with the changes noted in the dictated addendum note Assessment: Vital Signs: Vital Signs Date Time Temp Pulse Resp B/P (MAP) Pulse Ox O2 Delivery O2 Flow Rate FiO2 09/09/17 16:15 98.6 68 14 108/68 (81) 98 Room Air I&O Intake and Output 09/09/17 07:00 Intake Total 1200 ml Balance 1200 ml Intake Oral 1200 ml Current Medications: Meds: Current Medications Valproic Acid (Depakene) 500 mg STAT PO Last administered on 07/30/17at 21:21; Start 07/30/17 at 20:49; Stop 08/01/17 at 15:23; Status DC Divalproex Sodium (Depakote Er) 1,000 mg QHS PO ; Start 07/31/17 at 21:00; Stop 07/31/17 at 21:00; Status DC Divalproex Sodium (Depakote Er) 500 mg DAILY PO ; Start 07/31/17 at 09:00; Stop 07/31/17 at 09:00; Status DC Lorazepam (Ativan) 1 mg PRN BID PRN PO ANXIETY / AGITATION Last administered on 09/05/17at 13:07; Start 07/30/17 at 23:00 Olanzapine (ZyPREXA) 10 mg DAILY PO ; Start 07/31/17 at 09:00; Stop 07/31/17 at 09:00; Status DC Olanzapine (ZyPREXA) 5 mg DAILY@1400 PO ; Start 07/31/17 at 14:00; Stop at 14:00; Status DC Risperidone (RisperDAL CONSTA) 25 mg Q2WKS IM ; Start 08/13/17 at 09:00; Status UNV Clozapine (Clozaril) 200 mg DAILY PO Last administered on 09/09/17at 07:46; Start 07/31/17 at 09:00 Clozapine (Clozaril) 500 mg QHS PO Last administered on 09/09/17at 19:47; Start 07/31/17 at 21:00 Olanzapine (ZyPREXA) 20 mg QHS PO Last administered on 07/31/17 20:28; Start 07/31/17 at 21:00; Stop 08/01/17 at 09:51; Status DC Atorvastatin Calcium (Lipitor) 10 mg QHS PO ; Start 07/31/17 at 21:00; Stop 03/10 at 21:00; Status DC Phenytoin Sodium (Dilantin) 300 mg QHS PO Last administered on 09/09/17at 19:47 ; Start 07/31/17 at 21:00 Non-Formulary Medication (Sodium Fluoride (Prevident 5000)) 1 carlee BID DT ; Start 07/31/17 at 09:00; Stop 07/31/17 at 09:00; Status DC Oxybutynin Chloride (Ditropan) 5 mg [id number] PO Last administered on 09/09/17at 19 :46; Start 07/31/17 at 09:00 Quetiapine Fumarate (SEROquel) 100 mg BID PO Last administered on 08/08/17at 20: 51; Start 07/31/17 at 09:00; Stop 08/09/17 at 18:03; Status DC Acetaminophen (Tylenol) 500 mg PRN Q4HRS PRN PO PAIN Last administered on 13:21; Start 07/31/17 at 07:15 Levothyroxine Sodium (Synthroid) 200 mcg DAILY06 PO Last administered on at 05:24; Start 07/31/17 at 07:15 Fish Oil (Fish Oil) 1,000 mg DAILY PO Last administered on 07/31/17at 09:36; Start 07/31/17 at 09:00; Stop 08/01/17 at 09:51; Status DC Selenium Sulfide (Selsun) 1 carlee TWICEWEEKLY TP ; Start 07/31/17 at 07:30; Stop 07/31/17 at 14:29; Status DC Divalproex Sodium (Depakote Er) 1,000 mg QHS PO Last administered on 07/31/17at 20:26; Start 07/31/17 at 21:00; Stop 08/01/17 at 18:29; Status DC Atorvastatin Calcium (Lipitor) 10 mg QHS PO Last administered on 09/09/17at 19: 47; Start 07/31/17 at 21:00 Divalproex Sodium (Depakote Er) 500 mg DAILY PO Last administered on 08/01/17at 09:10; Start 07/31/17 at 09:00; Stop 08/01/17 at 09:51; Status DC Olanzapine (ZyPREXA) 10 mg DAILY PO Last administered on 08/01/17at 09:30; Start 07/31/17 at 09:00; Stop 08/01/17 at 09:51; Status DC Olanzapine (ZyPREXA) 5 mg DAILY@1400 PO Last administered on 07/31/17at 15:07; Start 07/31/17 at 14:00; Stop 08/01/17 at 09:51; Status DC Selenium Sulfide (Selsun) 1 carlee TWICEWEEKLY TP ; Start 07/31/17 at 14:29 Divalproex Sodium (Depakote Er) 750 mg DAILY PO ; Start 08/02/17 at 09:00; Stop 08/02/17 at 09:00; Status DC Divalproex Sodium (Depakote Sprinkles) 750 mg BID PO Last administered on at 09:21; Start 08/01/17 at 21:00; Stop 08/04/17 at 14:28; Status DC Al Hydroxide/Mg Hydroxide (Mylanta Plus Xs) 30 ml PRN AFTMEAL PRN PO DYSPEPSIA Last administered on 09/09/17at 00:29; Start 08/03/17 at 12:00 Magnesium Hydroxide (Milk Of Magnesia) 2,400 mg PRN DAILY PRN PO CONSTIPATION Last administered on 08/14/17at 20:28; Start 08/03/17 at 17:00 Divalproex Sodium (Depakote Sprinkles) 1,000 mg BID PO Last administered on at 07:51; Start 08/04/17 at 21:00; Stop 08/07/17 at 18:35; Status DC Polyethylene Glycol (miraLAX) 17 gm DAILY PO Last administered on 09/09/17at 07: 47; Start 08/05/17 at 09:00 Trazodone HCl (Desyrel) 100 mg QHS PO Last administered on 08/18/17at 19:34; Start 08/06/17 at 21:00; Stop 08/19/17 at 18:44; Status DC Trazodone HCl (Desyrel) 100 mg PRN QHS PRN PO INSOMNIA Last administered on at 21:05; Start 08/06/17 at 19:00; Stop 08/19/17 at 18:44; Status DC Divalproex Sodium (Depakote Sprinkles) 1,250 mg BID PO Last administered on at 20:51; Start 08/07/17 at 21:00; Stop 08/09/17 at 18:31; Status DC Quetiapine Fumarate (SEROquel) 50 mg BID PO Last administered on 08/19/17at 09: 19; Start 08/09/17 at 21:00; Stop 08/19/17 at 10:47; Status DC Divalproex Sodium (Depakote Sprinkles) 1,500 mg BID PO Last administered on at 08:25; Start 08/09/17 at 21:00; Stop 08/12/17 at 10:53; Status DC Trazodone HCl (Desyrel) 25 mg TID@0900,1300,1700 PO Last administered on at 17:10; Start 08/12/17 at 09:00; Stop 08/13/17 at 18:00; Status DC Divalproex Sodium (Depakote Sprinkles) 1,750 mg BID PO Last administered on at 09:32; Start 08/12/17 at 21:00; Stop 08/16/17 at 18:48; Status DC Trazodone HCl (Desyrel) 25 mg BID@1300,1700 PO Last administered on 09/09/17at 17:19; Start 08/14/17 at 13:00 Trazodone HCl (Desyrel) 50 mg DAILY PO Last administered on 09/09/17at 07:46; Start 08/14/17 at 09:00 Trazodone HCl (Desyrel) 50 mg 1X ONCE PO Last administered on 08/13/17at 18:29 ; Start 08/13/17 at 18:30; Stop 08/13/17 at 18:31; Status DC Sertraline HCl (Zoloft) 25 mg DAILY PO Last administered on 08/17/17at 07:47; Start 08/15/17 at 09:00; Stop 08/17/17 at 11:00; Status DC Sertraline HCl (Zoloft) 50 mg DAILY PO Last administered on 09/09/17at 07:45; Start 08/18/17 at 09:00 Divalproex Sodium (Depakote Sprinkles) 2,000 mg BID PO Last administered on 08/23at 09:05; Start 08/16/17 at 21:00; Stop 08/23/17 at 18:02; Status DC Buspirone HCl (Buspar) 5 mg TID@0900,1300,1700 PO Last administered on at 17:19; Start 08/17/17 at 09:00 Quetiapine Fumarate (SEROquel) 50 mg TID@0900,1300,1700 PO Last administered on 09/09/17 17:19; Start 08/19/17 at 13:00 Mirtazapine (Remeron) 7.5 mg QHS PO Last administered on 09/09/17at 19:46; Start 08/19/17 at 21:00 Hydroxyzine HCl (Atarax) 50 mg PRN QHS PRN PO INSOMNIA, MAY REPEAT X1 Last administered on 09/09/17at 01:18; Start 08/20/17 at 22:30 Divalproex Sodium (Depakote Sprinkles) 2,250 mg BID PO Last administered on 08/26 09:06; Start 08/23/17 at 21:00; Stop 08/26/17 at 10:43; Status DC Divalproex Sodium (Depakote Sprinkles) 2,500 mg BID PO Last administered on 08/28at 19:42; Start 08/26/17 at 21:00; Stop 08/28/17 at 22:15; Status DC Iohexol (Omnipaque 300 Mg/ml) 75 ml 1X ONCE IV Last administered on 08/27/17at 22:59; Start 08/27/17 at 19:00; Stop 08/27/17 at 19:04; Status DC Divalproex Sodium (Depakote Sprinkles) 1,250 mg QID PO Last administered on 08/29at 17:13; Start 08/29/17 at 09:00; Stop 08/29/17 at 17:51; Status DC Divalproex Sodium (Depakote Sprinkles) 1,250 mg BID@0900,1200 PO ; Start at 09:00; Stop 08/30/17 at 09:11; Status DC Divalproex Sodium (Depakote Sprinkles) 1,375 mg BID@1700,2100 PO Last administered on 08/29/17at 19:48; Start 08/29/17 at 21:00; Stop 08/30/17 at 09:11; Status DC Valproic Acid (Depakene) 1,375 mg BID@1700,2100 PO Last administered on at 19:49; Start 08/30/17 at 17:00 Valproic Acid (Depakene) 1,250 mg BID@0900,1200 PO Last administered on at 11:46; Start 08/30/17 at 09:15 Multi-Ingredient Ointment (Analgesic [place]) 1 carlee PRN QID PRN TP MUSCLE PAIN Last administered on 09/01/17at 19:35; Start 09/01/17 at 19:15 Active Scripts Active Reported Ibuprofen 400 Mg Tablet 400 Mg PO PRN Q4HRS PRN MDD 1200mg/24hrs Lorazepam 2 Mg/1 Ml Vial 1 Mg IM BID PRN Abilify Maintena (Aripiprazole) 400 Mg Suser.vial 400 Mg IM Q4WK Next dose due 08/26/17 Paroxetine Hcl 20 Mg Tablet 10 Mg PO DAILY Abilify (Aripiprazole) 5 Mg Tablet 5 Mg PO DAILY Fenofibrate 160 Mg Tablet 160 Mg PO QHS Olanzapine 5 Mg Tablet 5 Mg PO DAILY@1400 5mg PO daily at 14:00 Methylphenidate Hcl 10 Mg Tablet 10 Mg PO BID@0900,1300 Seroquel (Quetiapine Fumarate) 100 Mg Tablet 100 Mg PO BID Prevident 5000 (Sodium Fluoride) 100 Ml Gel..ml. 1 Carlee DT BID Selenium Sulfide 180 Ml Shampoo 1 Carlee TP TWICE WEEKLY Lorazepam 1 Mg Tablet 1 Mg PO PRN BID PRN Acetaminophen 500 Mg Tablet 500 Mg PO PRN Q4HRS PRN Risperdal Consta (Risperidone Microspheres) 25 Mg/2 Ml Disp.syrin 25 Mg IM Q2WKS Phenytoin 125 Mg/5 Ml Oral.susp 300 Mg PO QHS Zyprexa (Olanzapine) 20 Mg Tablet 20 Mg PO QHS Atorvastatin Calcium 10 Mg Tablet 10 Mg PO QHS Zyprexa (Olanzapine) 5 Mg Tablet 5 Mg PO DAILY@1400 Clozapine 200 Mg Tablet 500 Mg PO QHS Clozapine 200 Mg Tablet 200 Mg PO DAILY Detrol La (Tolterodine Tartrate) 2 Mg Cap.er.24h 2 Mg PO BID Depakote Er (Divalproex Sodium) 500 Mg Tab.er.24h 500 Mg PO DAILY Depakote Er (Divalproex Sodium) 500 Mg Tab.er.24h 1,000 Mg PO QHS [place] 3 1,000 Mg Softgel ([place]-3 Fatty Acids/Fish Oil) 1 Each Capsule 1,000 Mg PO DAILY Thera-M Tablet (Multivits,Ca,Minerals/Iron/Fa) 1 Each Tablet 1 Tab PO DAILY Vitamin D3 (Cholecalciferol (Vitamin D3)) 1,000 Unit Tablet 2,000 Unit PO DAILY Olanzapine 10 Mg Tablet 10 Mg PO DAILY Miralax (Polyethylene Glycol 3350) 119 Gm Powder 17 Gm PO DAILY Levothyroxine Sodium 200 Mcg Tablet 200 Mcg PO DAILY06 Pantoprazole Sodium 40 Mg Tablet.dr 40 Mg PO DAILY I have reviewed the current psychotropics carefully including drug interactions. Risk benefit ratio favors no change other than as noted in my dictated progress note. Diagnosis: Problems: (1) Dementia in Alzheimer's disease with delusions (2) Impulse control disorder (3) Schizoaffective disorder, chronic condition with acute exacerbation (4) Borderline intellectual disability STEVEN AYALA MD Sep 09, 2017 20:58
[2017-09-10] MEDS: LEVOTHYROXINE 100 MCG TABLET PO SCH (05:35)
[2017-09-10 05:53] VITALS: BP 124/82
[2017-09-10] MEDS: cloZAPine 100 MG TABLET PO SCH ×2 (09:24→19:40)
[2017-09-10] MEDS: QUEtiapine 50 MG TABLET. PO SCH ×3 (09:24→16:37)
[2017-09-10] MEDS: traZODone 50 MG TABLET. PO SCH ×3 (09:24→16:39)
[2017-09-10] MEDS: OXYBUTYNIN CHLORIDE 5 MG TABLET PO SCH ×3 (09:24→19:41)
[2017-09-10] MEDS: VALPROATE ACID 250 MG/5 ML ORAL SOLUTION PO SCH ×4 (09:24→19:39)
[2017-09-10] MEDS: POLYETHYLENE GLYCOL 3350 17 GM PACKET. PO SCH (09:24)
[2017-09-10] MEDS: SERTRALINE 25 MG TABLET. PO SCH (09:24)
[2017-09-10] MEDS: busPIRone 5 MG TABLET. PO SCH ×3 (09:24→16:37)
[2017-09-10 16:06] VITALS: BP 131/65
--- NOTE | 2017-09-10 19:15 | PN ---
DATE: 09/08/2017 This is a late entry for 09/08/2017 and covers elements not covered in my initial note of 09/08/2017. I met with the patient the evening of 09/08/2017. Overall, the patient has been somewhat anxious, but less hyperverbal, less labile and generally less psychotic, though at times he still has auditory hallucinations. REVIEW OF SYSTEMS: No CV, , pulmonary, eye system symptoms on review. Reliability varies. MENTAL STATUS EXAM: Oriented to himself and situation. Speech coherent, less pressured. Abstraction fair, computation impaired, language function intact, attention span short. Mood and affect remain somewhat anxious, labile. LABORATORY DATA: Reviewed. IMPRESSION: Schizoaffective disorder, bipolar type. Intellectual disability. PLAN: Continue psychotropics as mentioned in my initial note. Follow labs for the Clozaril and Depakene. MAN Suleman AYALA MD DR: ADALBERTO/garry JOB#: [id number] / [id number]
[2017-09-10] MEDS: PHENYTOIN SODIUM EXTENDED 100 MG CAPSULE PO SCH (19:40)
[2017-09-10] MEDS: ATORVASTATIN CALCIUM 10 MG TABLET. PO SCH (19:40)
[2017-09-10] MEDS: MIRTAZAPINE 7.5 MG TABLET. PO SCH (19:41)
--- NOTE | 2017-09-10 20:50 | PDOC ---
Exam Note: Chad Note: Please also refer to the separate dictated note~for this date of service dictated separately.~Patient seen individually. Discussed the patient with Nursing staff reviewed the chart.~Reviewed interim history and current functioning. Reviewed vital signs,~Labs/ Radiology~and current medications noted below. Continue current treatment with the changes noted in the dictated addendum note Assessment: Vital Signs: Vital Signs Date Time Temp Pulse Resp B/P (MAP) Pulse Ox O2 Delivery O2 Flow Rate FiO2 09/10/17 16:06 97.7 86 16 131/65 (87) 98 09/09/17 16:15 Room Air I&O Intake and Output 09/10/17 07:00 Intake Total 1320 ml Balance 1320 ml Intake Oral 1320 ml Current Medications: Meds: Current Medications Valproic Acid (Depakene) 500 mg STAT PO Last administered on 07/30/17at 21:21; Start 07/30/17 at 20:49; Stop 08/01/17 at 15:23; Status DC Divalproex Sodium (Depakote Er) 1,000 mg QHS PO ; Start 07/31/17 at 21:00; Stop 07/31/17 at 21:00; Status DC Divalproex Sodium (Depakote Er) 500 mg DAILY PO ; Start 07/31/17 at 09:00; Stop 07/31/17 at 09:00; Status DC Lorazepam (Ativan) 1 mg PRN BID PRN PO ANXIETY / AGITATION Last administered on 09/05/17at 13:07; Start 07/30/17 at 23:00 Olanzapine (ZyPREXA) 10 mg DAILY PO ; Start 07/31/17 at 09:00; Stop 07/31/17 at 09:00; Status DC Olanzapine (ZyPREXA) 5 mg DAILY@1400 PO ; Start 07/31/17 at 14:00; Stop at 14:00; Status DC Risperidone (RisperDAL CONSTA) 25 mg Q2WKS IM ; Start 08/13/17 at 09:00; Status UNV Clozapine (Clozaril) 200 mg DAILY PO Last administered on 09/10/17at 09:24; Start 07/31/17 at 09:00 Clozapine (Clozaril) 500 mg QHS PO Last administered on 09/10/17at 19:40; Start 07/31/17 at 21:00 Olanzapine (ZyPREXA) 20 mg QHS PO Last administered on 07/31/17 20:28; Start 07/31/17 at 21:00; Stop 08/01/17 at 09:51; Status DC Atorvastatin Calcium (Lipitor) 10 mg QHS PO ; Start 07/31/17 at 21:00; Stop 03/10 at 21:00; Status DC Phenytoin Sodium (Dilantin) 300 mg QHS PO Last administered on 09/10/17at 19:40 ; Start 07/31/17 at 21:00 Non-Formulary Medication (Sodium Fluoride (Prevident 5000)) 1 carlee BID DT ; Start 07/31/17 at 09:00; Stop 07/31/17 at 09:00; Status DC Oxybutynin Chloride (Ditropan) 5 mg [id number] PO Last administered on 09/10/17at 19 :41; Start 07/31/17 at 09:00 Quetiapine Fumarate (SEROquel) 100 mg BID PO Last administered on 08/08/17at 20: 51; Start 07/31/17 at 09:00; Stop 08/09/17 at 18:03; Status DC Acetaminophen (Tylenol) 500 mg PRN Q4HRS PRN PO PAIN Last administered on at 13:21; Start 07/31/17 at 07:15 Levothyroxine Sodium (Synthroid) 200 mcg DAILY06 PO Last administered on at 05:35; Start 07/31/17 at 07:15 Fish Oil (Fish Oil) 1,000 mg DAILY PO Last administered on 07/31/17at 09:36; Start 07/31/17 at 09:00; Stop 08/01/17 at 09:51; Status DC Selenium Sulfide (Selsun) 1 carlee TWICEWEEKLY TP ; Start 07/31/17 at 07:30; Stop 07/31/17 at 14:29; Status DC Divalproex Sodium (Depakote Er) 1,000 mg QHS PO Last administered on 07/31/17at 20:26; Start 07/31/17 at 21:00; Stop 08/01/17 at 18:29; Status DC Atorvastatin Calcium (Lipitor) 10 mg QHS PO Last administered on 09/10/17 19: 40; Start 07/31/17 at 21:00 Divalproex Sodium (Depakote Er) 500 mg DAILY PO Last administered on 08/01/17at 09:10; Start 07/31/17 at 09:00; Stop 08/01/17 at 09:51; Status DC Olanzapine (ZyPREXA) 10 mg DAILY PO Last administered on 08/01/17at 09:30; Start 07/31/17 at 09:00; Stop 08/01/17 at 09:51; Status DC Olanzapine (ZyPREXA) 5 mg DAILY@1400 PO Last administered on 07/31/17at 15:07; Start 07/31/17 at 14:00; Stop 08/01/17 at 09:51; Status DC Selenium Sulfide (Selsun) 1 carlee TWICEWEEKLY TP ; Start 07/31/17 at 14:29 Divalproex Sodium (Depakote Er) 750 mg DAILY PO ; Start 08/02/17 at 09:00; Stop 08/02/17 at 09:00; Status DC Divalproex Sodium (Depakote Sprinkles) 750 mg BID PO Last administered on at 09:21; Start 08/01/17 at 21:00; Stop 08/04/17 at 14:28; Status DC Al Hydroxide/Mg Hydroxide (Mylanta Plus Xs) 30 ml PRN AFTMEAL PRN PO DYSPEPSIA Last administered on 09/09/17at 00:29; Start 08/03/17 at 12:00 Magnesium Hydroxide (Milk Of Magnesia) 2,400 mg PRN DAILY PRN PO CONSTIPATION Last administered on 08/14/17at 20:28; Start 08/03/17 at 17:00 Divalproex Sodium (Depakote Sprinkles) 1,000 mg BID PO Last administered on at 07:51; Start 08/04/17 at 21:00; Stop 08/07/17 at 18:35; Status DC Polyethylene Glycol (miraLAX) 17 gm DAILY PO Last administered on 09/10/17 09: 24; Start 08/05/17 at 09:00 Trazodone HCl (Desyrel) 100 mg QHS PO Last administered on 08/18/17at 19:34; Start 08/06/17 at 21:00; Stop 08/19/17 at 18:44; Status DC Trazodone HCl (Desyrel) 100 mg PRN QHS PRN PO INSOMNIA Last administered on at 21:05; Start 08/06/17 at 19:00; Stop 08/19/17 at 18:44; Status DC Divalproex Sodium (Depakote Sprinkles) 1,250 mg BID PO Last administered on at 20:51; Start 08/07/17 at 21:00; Stop 08/09/17 at 18:31; Status DC Quetiapine Fumarate (SEROquel) 50 mg BID PO Last administered on 08/19/17at 09: 19; Start 08/09/17 at 21:00; Stop 08/19/17 at 10:47; Status DC Divalproex Sodium (Depakote Sprinkles) 1,500 mg BID PO Last administered on at 08:25; Start 08/09/17 at 21:00; Stop 08/12/17 at 10:53; Status DC Trazodone HCl (Desyrel) 25 mg TID@0900,1300,1700 PO Last administered on at 17:10; Start 08/12/17 at 09:00; Stop 08/13/17 at 18:00; Status DC Divalproex Sodium (Depakote Sprinkles) 1,750 mg BID PO Last administered on at 09:32; Start 08/12/17 at 21:00; Stop 08/16/17 at 18:48; Status DC Trazodone HCl (Desyrel) 25 mg BID@1300,1700 PO Last administered on 09/10/17at 16:39; Start 08/14/17 at 13:00 Trazodone HCl (Desyrel) 50 mg DAILY PO Last administered on 09/10/17at 09:24; Start 08/14/17 at 09:00 Trazodone HCl (Desyrel) 50 mg 1X ONCE PO Last administered on 08/13/17at 18:29 ; Start 08/13/17 at 18:30; Stop 08/13/17 at 18:31; Status DC Sertraline HCl (Zoloft) 25 mg DAILY PO Last administered on 08/17/17 07:47; Start 08/15/17 at 09:00; Stop 08/17/17 at 11:00; Status DC Sertraline HCl (Zoloft) 50 mg DAILY PO Last administered on 09/10/17 09:24; Start 08/18/17 at 09:00 Divalproex Sodium (Depakote Sprinkles) 2,000 mg BID PO Last administered on 08/23 09:05; Start 08/16/17 at 21:00; Stop 08/23/17 at 18:02; Status DC Buspirone HCl (Buspar) 5 mg TID@0900,1300,1700 PO Last administered on 16:37; Start 08/17/17 at 09:00 Quetiapine Fumarate (SEROquel) 50 mg TID@0900,1300,1700 PO Last administered on 09/10/17 16:37; Start 08/19/17 at 13:00 Mirtazapine (Remeron) 7.5 mg QHS PO Last administered on 09/10/17 19:41; Start 08/19/17 at 21:00 Hydroxyzine HCl (Atarax) 50 mg PRN QHS PRN PO INSOMNIA, MAY REPEAT X1 Last administered on 09/09/17 01:18; Start 08/20/17 at 22:30 Divalproex Sodium (Depakote Sprinkles) 2,250 mg BID PO Last administered on 08/26 09:06; Start 08/23/17 at 21:00; Stop 08/26/17 at 10:43; Status DC Divalproex Sodium (Depakote Sprinkles) 2,500 mg BID PO Last administered on 08/28 19:42; Start 08/26/17 at 21:00; Stop 08/28/17 at 22:15; Status DC Iohexol (Omnipaque 300 Mg/ml) 75 ml 1X ONCE IV Last administered on 08/27/17 22:59; Start 08/27/17 at 19:00; Stop 08/27/17 at 19:04; Status DC Divalproex Sodium (Depakote Sprinkles) 1,250 mg QID PO Last administered on 4/8 /18at 17:13; Start 08/29/17 at 09:00; Stop 08/29/17 at 17:51; Status DC Divalproex Sodium (Depakote Sprinkles) 1,250 mg BID@0900,1200 PO ; Start at 09:00; Stop 08/30/17 at 09:11; Status DC Divalproex Sodium (Depakote Sprinkles) 1,375 mg BID@1700,2100 PO Last administered on 08/29/17at 19:48; Start 08/29/17 at 21:00; Stop 08/30/17 at 09:11; Status DC Valproic Acid (Depakene) 1,375 mg BID@1700,2100 PO Last administered on at 19:39; Start 08/30/17 at 17:00 Valproic Acid (Depakene) 1,250 mg BID@0900,1200 PO Last administered on at 11:55; Start 08/30/17 at 09:15 Multi-Ingredient Ointment (Analgesic [place]) 1 carlee PRN QID PRN TP MUSCLE PAIN Last administered on 09/01/17at 19:35; Start 09/01/17 at 19:15 Active Scripts Active Reported Ibuprofen 400 Mg Tablet 400 Mg PO PRN Q4HRS PRN MDD 1200mg/24hrs Lorazepam 2 Mg/1 Ml Vial 1 Mg IM BID PRN Abilify Maintena (Aripiprazole) 400 Mg Suser.vial 400 Mg IM Q4WK Next dose due 08/26/17 Paroxetine Hcl 20 Mg Tablet 10 Mg PO DAILY Abilify (Aripiprazole) 5 Mg Tablet 5 Mg PO DAILY Fenofibrate 160 Mg Tablet 160 Mg PO QHS Olanzapine 5 Mg Tablet 5 Mg PO DAILY@1400 5mg PO daily at 14:00 Methylphenidate Hcl 10 Mg Tablet 10 Mg PO BID@0900,1300 Seroquel (Quetiapine Fumarate) 100 Mg Tablet 100 Mg PO BID Prevident 5000 (Sodium Fluoride) 100 Ml Gel..ml. 1 Carlee DT BID Selenium Sulfide 180 Ml Shampoo 1 Carlee TP TWICE WEEKLY Lorazepam 1 Mg Tablet 1 Mg PO PRN BID PRN Acetaminophen 500 Mg Tablet 500 Mg PO PRN Q4HRS PRN Risperdal Consta (Risperidone Microspheres) 25 Mg/2 Ml Disp.syrin 25 Mg IM Q2WKS Phenytoin 125 Mg/5 Ml Oral.susp 300 Mg PO QHS Zyprexa (Olanzapine) 20 Mg Tablet 20 Mg PO QHS Atorvastatin Calcium 10 Mg Tablet 10 Mg PO QHS Zyprexa (Olanzapine) 5 Mg Tablet 5 Mg PO DAILY@1400 Clozapine 200 Mg Tablet 500 Mg PO QHS Clozapine 200 Mg Tablet 200 Mg PO DAILY Detrol La (Tolterodine Tartrate) 2 Mg Cap.er.24h 2 Mg PO BID Depakote Er (Divalproex Sodium) 500 Mg Tab.er.24h 500 Mg PO DAILY Depakote Er (Divalproex Sodium) 500 Mg Tab.er.24h 1,000 Mg PO QHS [place] 3 1,000 Mg Softgel ([place]-3 Fatty Acids/Fish Oil) 1 Each Capsule 1,000 Mg PO DAILY Thera-M Tablet (Multivits,Ca,Minerals/Iron/Fa) 1 Each Tablet 1 Tab PO DAILY Vitamin D3 (Cholecalciferol (Vitamin D3)) 1,000 Unit Tablet 2,000 Unit PO DAILY Olanzapine 10 Mg Tablet 10 Mg PO DAILY Miralax (Polyethylene Glycol 3350) 119 Gm Powder 17 Gm PO DAILY Levothyroxine Sodium 200 Mcg Tablet 200 Mcg PO DAILY06 Pantoprazole Sodium 40 Mg Tablet.dr 40 Mg PO DAILY I have reviewed the current psychotropics carefully including drug interactions. Risk benefit ratio favors no change other than as noted in my dictated progress note. Diagnosis: Problems: (1) Dementia in Alzheimer's disease with delusions (2) Impulse control disorder (3) Schizoaffective disorder, chronic condition with acute exacerbation (4) Borderline intellectual disability STEVEN AYALA MD Sep 10, 2017 20:50
--- NOTE | 2017-09-10 21:02 | PN ---
DATE: 09/09/2017 This is a late entry for 09/09/2017 covers elements not covered in my initial note of 09/09/2017. SUBJECTIVE: I met with the patient in the evening of 09/09/2017 and staffed at a treatment team meeting with the entire team in the morning. The patient has been withdrawn. No GI symptoms and this is better. He still gets somewhat psychotic, believes someone is hitting him moved his head from side to side, but much less than before. He states he slept poorly last previous evening. REVIEW OF SYSTEMS: No CV, , pulmonary, eye system symptoms on review. MENTAL STATUS EXAM: Reasonably oriented to himself and situation. Speech coherent, less pressured. Abstraction fair, computation impaired, language function intact, attention span short. Mood and affect, lability is improved. LABORATORY DATA: Reviewed. IMPRESSION: Schizoaffective disorder, bipolar type, intellectual disability. PLAN: Continue psychotropics mentioned in my initial note. MAN Suleman AYALA MD DR: ADALBERTO/garry JOB#: [id number] / [id number]
[2017-09-11] MEDS: hydrOXYzine HCL 25 MG TABLET PO PRN (03:09)
[2017-09-11] MEDS: LEVOTHYROXINE 100 MCG TABLET PO SCH (05:52)
[2017-09-11] MEDS: traZODone 50 MG TABLET. PO SCH ×3 (08:03→17:57)
[2017-09-11] MEDS: busPIRone 5 MG TABLET. PO SCH ×3 (08:03→17:56)
[2017-09-11] MEDS: SERTRALINE 25 MG TABLET. PO SCH (08:03)
[2017-09-11] MEDS: VALPROATE ACID 250 MG/5 ML ORAL SOLUTION PO SCH ×4 (08:03→19:57)
[2017-09-11] MEDS: OXYBUTYNIN CHLORIDE 5 MG TABLET PO SCH ×3 (08:03→19:58)
[2017-09-11] MEDS: cloZAPine 100 MG TABLET PO SCH ×2 (08:03→19:59)
[2017-09-11] MEDS: QUEtiapine 50 MG TABLET. PO SCH ×3 (08:03→17:56)
[2017-09-11] MEDS: POLYETHYLENE GLYCOL 3350 17 GM PACKET. PO SCH (08:04)
[2017-09-11 16:11] VITALS: BP 108/78
[2017-09-11] MEDS ORDERED: traZODone 50 MG TABLET. PO PRN (19:45)
[2017-09-11] MEDS: PHENYTOIN SODIUM EXTENDED 100 MG CAPSULE PO SCH (19:57)
[2017-09-11] MEDS: MIRTAZAPINE 7.5 MG TABLET. PO SCH (19:58)
[2017-09-11] MEDS: ATORVASTATIN CALCIUM 10 MG TABLET. PO SCH (19:58)
--- NOTE | 2017-09-11 22:33 | PDOC ---
Exam Note: Chad Note: Please also refer to the separate dictated note~for this date of service dictated separately.~Patient seen individually. Discussed the patient with Nursing staff reviewed the chart.~Reviewed interim history and current functioning. Reviewed vital signs,~Labs/ Radiology~and current medications noted below. Continue current treatment with the changes noted in the dictated addendum note Assessment: Vital Signs: Vital Signs Date Time Temp Pulse Resp B/P (MAP) Pulse Ox O2 Delivery O2 Flow Rate FiO2 09/11/17 16:11 98.3 71 18 108/78 (88) 99 Room Air I&O Intake and Output 09/11/17 07:00 Intake Total 960 ml Balance 960 ml Intake Oral 960 ml Current Medications: Meds: Current Medications Valproic Acid (Depakene) 500 mg STAT PO Last administered on 07/30/17at 21:21; Start 07/30/17 at 20:49; Stop 08/01/17 at 15:23; Status DC Divalproex Sodium (Depakote Er) 1,000 mg QHS PO ; Start 07/31/17 at 21:00; Stop 07/31/17 at 21:00; Status DC Divalproex Sodium (Depakote Er) 500 mg DAILY PO ; Start 07/31/17 at 09:00; Stop 07/31/17 at 09:00; Status DC Lorazepam (Ativan) 1 mg PRN BID PRN PO ANXIETY / AGITATION Last administered on 09/05/17at 13:07; Start 07/30/17 at 23:00 Olanzapine (ZyPREXA) 10 mg DAILY PO ; Start 07/31/17 at 09:00; Stop 07/31/17 at 09:00; Status DC Olanzapine (ZyPREXA) 5 mg DAILY@1400 PO ; Start 07/31/17 at 14:00; Stop at 14:00; Status DC Risperidone (RisperDAL CONSTA) 25 mg Q2WKS IM ; Start 08/13/17 at 09:00; Status UNV Clozapine (Clozaril) 200 mg DAILY PO Last administered on 09/11/17at 08:03; Start 07/31/17 at 09:00 Clozapine (Clozaril) 500 mg QHS PO Last administered on 09/11/17at 19:59; Start 07/31/17 at 21:00 Olanzapine (ZyPREXA) 20 mg QHS PO Last administered on 07/31/17at 20:28; Start 07/31/17 at 21:00; Stop 08/01/17 at 09:51; Status DC Atorvastatin Calcium (Lipitor) 10 mg QHS PO ; Start 07/31/17 at 21:00; Stop 03/10 at 21:00; Status DC Phenytoin Sodium (Dilantin) 300 mg QHS PO Last administered on 09/11/17at 19:57 ; Start 07/31/17 at 21:00 Non-Formulary Medication (Sodium Fluoride (Prevident 5000)) 1 carlee BID DT ; Start 07/31/17 at 09:00; Stop 07/31/17 at 09:00; Status DC Oxybutynin Chloride (Ditropan) 5 mg [id number] PO Last administered on 09/11/17at 19 :58; Start 07/31/17 at 09:00 Quetiapine Fumarate (SEROquel) 100 mg BID PO Last administered on 08/08/17at 20: 51; Start 07/31/17 at 09:00; Stop 08/09/17 at 18:03; Status DC Acetaminophen (Tylenol) 500 mg PRN Q4HRS PRN PO PAIN Last administered on at 13:21; Start 07/31/17 at 07:15 Levothyroxine Sodium (Synthroid) 200 mcg DAILY06 PO Last administered on at 05:52; Start 07/31/17 at 07:15 Fish Oil (Fish Oil) 1,000 mg DAILY PO Last administered on 07/31/17at 09:36; Start 07/31/17 at 09:00; Stop 08/01/17 at 09:51; Status DC Selenium Sulfide (Selsun) 1 carlee TWICEWEEKLY TP ; Start 07/31/17 at 07:30; Stop 07/31/17 at 14:29; Status DC Divalproex Sodium (Depakote Er) 1,000 mg QHS PO Last administered on 07/31/17at 20:26; Start 07/31/17 at 21:00; Stop 08/01/17 at 18:29; Status DC Atorvastatin Calcium (Lipitor) 10 mg QHS PO Last administered on 09/11/17at 19: 58; Start 07/31/17 at 21:00 Divalproex Sodium (Depakote Er) 500 mg DAILY PO Last administered on 08/01/17at 09:10; Start 07/31/17 at 09:00; Stop 08/01/17 at 09:51; Status DC Olanzapine (ZyPREXA) 10 mg DAILY PO Last administered on 08/01/17at 09:30; Start 07/31/17 at 09:00; Stop 08/01/17 at 09:51; Status DC Olanzapine (ZyPREXA) 5 mg DAILY@1400 PO Last administered on 07/31/17at 15:07; Start 07/31/17 at 14:00; Stop 08/01/17 at 09:51; Status DC Selenium Sulfide (Selsun) 1 carlee TWICEWEEKLY TP ; Start 07/31/17 at 14:29 Divalproex Sodium (Depakote Er) 750 mg DAILY PO ; Start 08/02/17 at 09:00; Stop 08/02/17 at 09:00; Status DC Divalproex Sodium (Depakote Sprinkles) 750 mg BID PO Last administered on at 09:21; Start 08/01/17 at 21:00; Stop 08/04/17 at 14:28; Status DC Al Hydroxide/Mg Hydroxide (Mylanta Plus Xs) 30 ml PRN AFTMEAL PRN PO DYSPEPSIA Last administered on 09/09/17at 00:29; Start 08/03/17 at 12:00 Magnesium Hydroxide (Milk Of Magnesia) 2,400 mg PRN DAILY PRN PO CONSTIPATION Last administered on 08/14/17at 20:28; Start 08/03/17 at 17:00 Divalproex Sodium (Depakote Sprinkles) 1,000 mg BID PO Last administered on at 07:51; Start 08/04/17 at 21:00; Stop 08/07/17 at 18:35; Status DC Polyethylene Glycol (miraLAX) 17 gm DAILY PO Last administered on 09/11/17at 08: 04; Start 08/05/17 at 09:00 Trazodone HCl (Desyrel) 100 mg QHS PO Last administered on 08/18/17at 19:34; Start 08/06/17 at 21:00; Stop 08/19/17 at 18:44; Status DC Trazodone HCl (Desyrel) 100 mg PRN QHS PRN PO INSOMNIA Last administered on at 21:05; Start 08/06/17 at 19:00; Stop 08/19/17 at 18:44; Status DC Divalproex Sodium (Depakote Sprinkles) 1,250 mg BID PO Last administered on at 20:51; Start 08/07/17 at 21:00; Stop 08/09/17 at 18:31; Status DC Quetiapine Fumarate (SEROquel) 50 mg BID PO Last administered on 08/19/17at 09: 19; Start 08/09/17 at 21:00; Stop 08/19/17 at 10:47; Status DC Divalproex Sodium (Depakote Sprinkles) 1,500 mg BID PO Last administered on at 08:25; Start 08/09/17 at 21:00; Stop 08/12/17 at 10:53; Status DC Trazodone HCl (Desyrel) 25 mg TID@0900,1300,1700 PO Last administered on at 17:10; Start 08/12/17 at 09:00; Stop 08/13/17 at 18:00; Status DC Divalproex Sodium (Depakote Sprinkles) 1,750 mg BID PO Last administered on at 09:32; Start 08/12/17 at 21:00; Stop 08/16/17 at 18:48; Status DC Trazodone HCl (Desyrel) 25 mg BID@1300,1700 PO Last administered on 09/11/17at 17:57; Start 08/14/17 at 13:00 Trazodone HCl (Desyrel) 50 mg DAILY PO Last administered on 09/11/17at 08:03; Start 08/14/17 at 09:00 Trazodone HCl (Desyrel) 50 mg 1X ONCE PO Last administered on 08/13/17at 18:29 ; Start 08/13/17 at 18:30; Stop 08/13/17 at 18:31; Status DC Sertraline HCl (Zoloft) 25 mg DAILY PO Last administered on 08/17/17at 07:47; Start 08/15/17 at 09:00; Stop 08/17/17 at 11:00; Status DC Sertraline HCl (Zoloft) 50 mg DAILY PO Last administered on 09/11/17 08:03; Start 08/18/17 at 09:00 Divalproex Sodium (Depakote Sprinkles) 2,000 mg BID PO Last administered on 08/23 09:05; Start 08/16/17 at 21:00; Stop 08/23/17 at 18:02; Status DC Buspirone HCl (Buspar) 5 mg TID@0900,1300,1700 PO Last administered on 17:56; Start 08/17/17 at 09:00 Quetiapine Fumarate (SEROquel) 50 mg TID@0900,1300,1700 PO Last administered on 09/11/17 17:56; Start 08/19/17 at 13:00 Mirtazapine (Remeron) 7.5 mg QHS PO Last administered on 09/10/17 19:41; Start 08/19/17 at 21:00; Stop 09/11/17 at 19:42; Status DC Hydroxyzine HCl (Atarax) 50 mg PRN QHS PRN PO INSOMNIA, MAY REPEAT X1 Last administered on 09/11/17 03:09; Start 08/20/17 at 22:30 Divalproex Sodium (Depakote Sprinkles) 2,250 mg BID PO Last administered on 08/26 09:06; Start 08/23/17 at 21:00; Stop 08/26/17 at 10:43; Status DC Divalproex Sodium (Depakote Sprinkles) 2,500 mg BID PO Last administered on 08/28 19:42; Start 08/26/17 at 21:00; Stop 08/28/17 at 22:15; Status DC Iohexol (Omnipaque 300 Mg/ml) 75 ml 1X ONCE IV Last administered on 08/27/17 22:59; Start 08/27/17 at 19:00; Stop 08/27/17 at 19:04; Status DC Divalproex Sodium (Depakote Sprinkles) 1,250 mg QID PO Last administered on 4/8 /18at 17:13; Start 08/29/17 at 09:00; Stop 08/29/17 at 17:51; Status DC Divalproex Sodium (Depakote Sprinkles) 1,250 mg BID@0900,1200 PO ; Start at 09:00; Stop 08/30/17 at 09:11; Status DC Divalproex Sodium (Depakote Sprinkles) 1,375 mg BID@1700,2100 PO Last administered on 08/29/17at 19:48; Start 08/29/17 at 21:00; Stop 08/30/17 at 09:11; Status DC Valproic Acid (Depakene) 1,375 mg BID@1700,2100 PO Last administered on at 19:57; Start 08/30/17 at 17:00 Valproic Acid (Depakene) 1,250 mg BID@0900,1200 PO Last administered on at 12:06; Start 08/30/17 at 09:15 Multi-Ingredient Ointment (Analgesic [place]) 1 carlee PRN QID PRN TP MUSCLE PAIN Last administered on 09/01/17at 19:35; Start 09/01/17 at 19:15 Mirtazapine (Remeron) 15 mg QHS PO Last administered on 09/11/17at 19:58; Start 09/11/17 at 21:00 Trazodone HCl (Desyrel) 50 mg PRN QHS PRN PO INSOMNIA, MAY REPEAT X1 Last administered on 09/11/17at 19:58; Start 09/11/17 at 19:45 Active Scripts Active Reported Ibuprofen 400 Mg Tablet 400 Mg PO PRN Q4HRS PRN MDD 1200mg/24hrs Lorazepam 2 Mg/1 Ml Vial 1 Mg IM BID PRN Abilify Maintena (Aripiprazole) 400 Mg Suser.vial 400 Mg IM Q4WK Next dose due 08/26/17 Paroxetine Hcl 20 Mg Tablet 10 Mg PO DAILY Abilify (Aripiprazole) 5 Mg Tablet 5 Mg PO DAILY Fenofibrate 160 Mg Tablet 160 Mg PO QHS Olanzapine 5 Mg Tablet 5 Mg PO DAILY@1400 5mg PO daily at 14:00 Methylphenidate Hcl 10 Mg Tablet 10 Mg PO BID@0900,1300 Seroquel (Quetiapine Fumarate) 100 Mg Tablet 100 Mg PO BID Prevident 5000 (Sodium Fluoride) 100 Ml Gel..ml. 1 Carlee DT BID Selenium Sulfide 180 Ml Shampoo 1 Carlee TP TWICE WEEKLY Lorazepam 1 Mg Tablet 1 Mg PO PRN BID PRN Acetaminophen 500 Mg Tablet 500 Mg PO PRN Q4HRS PRN Risperdal Consta (Risperidone Microspheres) 25 Mg/2 Ml Disp.syrin 25 Mg IM Q2WKS Phenytoin 125 Mg/5 Ml Oral.susp 300 Mg PO QHS Zyprexa (Olanzapine) 20 Mg Tablet 20 Mg PO QHS Atorvastatin Calcium 10 Mg Tablet 10 Mg PO QHS Zyprexa (Olanzapine) 5 Mg Tablet 5 Mg PO DAILY@1400 Clozapine 200 Mg Tablet 500 Mg PO QHS Clozapine 200 Mg Tablet 200 Mg PO DAILY Detrol La (Tolterodine Tartrate) 2 Mg Cap.er.24h 2 Mg PO BID Depakote Er (Divalproex Sodium) 500 Mg Tab.er.24h 500 Mg PO DAILY Depakote Er (Divalproex Sodium) 500 Mg Tab.er.24h 1,000 Mg PO QHS [place] 3 1,000 Mg Softgel ([place]-3 Fatty Acids/Fish Oil) 1 Each Capsule 1,000 Mg PO DAILY Thera-M Tablet (Multivits,Ca,Minerals/Iron/Fa) 1 Each Tablet 1 Tab PO DAILY Vitamin D3 (Cholecalciferol (Vitamin D3)) 1,000 Unit Tablet 2,000 Unit PO DAILY Olanzapine 10 Mg Tablet 10 Mg PO DAILY Miralax (Polyethylene Glycol 3350) 119 Gm Powder 17 Gm PO DAILY Levothyroxine Sodium 200 Mcg Tablet 200 Mcg PO DAILY06 Pantoprazole Sodium 40 Mg Tablet.dr 40 Mg PO DAILY I have reviewed the current psychotropics carefully including drug interactions. Risk benefit ratio favors no change other than as noted in my dictated progress note. Diagnosis: Problems: (1) Dementia in Alzheimer's disease with delusions (2) Impulse control disorder (3) Schizoaffective disorder, chronic condition with acute exacerbation (4) Borderline intellectual disability STEVEN AYALA MD Sep 11, 2017 22:33
[2017-09-12] MEDS: LEVOTHYROXINE 100 MCG TABLET PO SCH (05:48)
[2017-09-12 06:17] VITALS: BP 103/55
[2017-09-12] MEDS: SERTRALINE 25 MG TABLET. PO SCH (07:59)
[2017-09-12] MEDS: QUEtiapine 50 MG TABLET. PO SCH ×3 (07:59→17:04)
[2017-09-12] MEDS: busPIRone 5 MG TABLET. PO SCH ×3 (07:59→17:04)
[2017-09-12] MEDS: POLYETHYLENE GLYCOL 3350 17 GM PACKET. PO SCH (07:59)
[2017-09-12] MEDS: traZODone 50 MG TABLET. PO SCH ×3 (07:59→17:05)
[2017-09-12] MEDS: OXYBUTYNIN CHLORIDE 5 MG TABLET PO SCH ×3 (07:59→20:08)
[2017-09-12] MEDS: VALPROATE ACID 250 MG/5 ML ORAL SOLUTION PO SCH ×4 (07:59→20:05)
[2017-09-12] MEDS: cloZAPine 100 MG TABLET PO SCH ×2 (08:00→20:08)
--- NOTE | 2017-09-12 09:59 | PN ---
DATE: 09/10/2017 PSYCHIATRIC PROGRESS NOTE This is a late entry 09/10/2017, covers elements not covered in my initial note 09/10/2017. SUBJECTIVE: I met with the patient the evening of 09/10/2017. The patient slept for 6-1/4 hours, takes his medications mixed in ice cream, less hyper, less verbal, less psychotic. REVIEW OF SYSTEMS: No CV, , pulmonary, eye, ENT system symptoms on review. Reliability poor. MENTAL STATUS EXAM: Oriented to himself and situation. Speech coherent, less pressured. Abstraction fair, computation impaired, language function intact. Mood and affect showing improvement. LABORATORY DATA: Reviewed. IMPRESSION: Unchanged from initial note. PLAN: Continue current psychotropics. MAN Suleman AYALA MD DR: ADALBERTO/garry JOB#: [id number] / [id number]
[2017-09-12 15:41] VITALS: BP 93/55
[2017-09-12] MEDS: ATORVASTATIN CALCIUM 10 MG TABLET. PO SCH (20:08)
[2017-09-12] MEDS: MIRTAZAPINE 7.5 MG TABLET. PO SCH (20:08)
[2017-09-12] MEDS: PHENYTOIN SODIUM EXTENDED 100 MG CAPSULE PO SCH (20:09)
[2017-09-12] MEDS: ACETAMINOPHEN 500 MG TABLET PO PRN (20:16)
--- NOTE | 2017-09-12 20:52 | PDOC ---
Exam Note: Chad Note: Please also refer to the separate dictated note~for this date of service dictated separately.~Patient seen individually. Discussed the patient with Nursing staff reviewed the chart.~Reviewed interim history and current functioning. Reviewed vital signs,~Labs/ Radiology~and current medications noted below. Continue current treatment with the changes noted in the dictated addendum note Assessment: Vital Signs: Vital Signs Date Time Temp Pulse Resp B/P (MAP) Pulse Ox O2 Delivery O2 Flow Rate FiO2 09/12/17 15:41 98.6 78 20 93/55 (68) 98 09/12/17 06:17 Room Air I&O Intake and Output 09/12/17 07:00 Intake Total 1501 ml Balance 1501 ml Intake Oral 1501 ml Current Medications: Meds: Current Medications Valproic Acid (Depakene) 500 mg STAT PO Last administered on 07/30/17at 21:21; Start 07/30/17 at 20:49; Stop 08/01/17 at 15:23; Status DC Divalproex Sodium (Depakote Er) 1,000 mg QHS PO ; Start 07/31/17 at 21:00; Stop 07/31/17 at 21:00; Status DC Divalproex Sodium (Depakote Er) 500 mg DAILY PO ; Start 07/31/17 at 09:00; Stop 07/31/17 at 09:00; Status DC Lorazepam (Ativan) 1 mg PRN BID PRN PO ANXIETY / AGITATION Last administered on 09/05/17at 13:07; Start 07/30/17 at 23:00 Olanzapine (ZyPREXA) 10 mg DAILY PO ; Start 07/31/17 at 09:00; Stop 07/31/17 at 09:00; Status DC Olanzapine (ZyPREXA) 5 mg DAILY@1400 PO ; Start 07/31/17 at 14:00; Stop at 14:00; Status DC Risperidone (RisperDAL CONSTA) 25 mg Q2WKS IM ; Start 08/13/17 at 09:00; Status UNV Clozapine (Clozaril) 200 mg DAILY PO Last administered on 09/12/17at 08:00; Start 07/31/17 at 09:00 Clozapine (Clozaril) 500 mg QHS PO Last administered on 09/12/17at 20:08; Start 07/31/17 at 21:00 Olanzapine (ZyPREXA) 20 mg QHS PO Last administered on 07/31/17 20:28; Start 07/31/17 at 21:00; Stop 08/01/17 at 09:51; Status DC Atorvastatin Calcium (Lipitor) 10 mg QHS PO ; Start 07/31/17 at 21:00; Stop 03/10 at 21:00; Status DC Phenytoin Sodium (Dilantin) 300 mg QHS PO Last administered on 09/12/17at 20:09 ; Start 07/31/17 at 21:00 Non-Formulary Medication (Sodium Fluoride (Prevident 5000)) 1 carlee BID DT ; Start 07/31/17 at 09:00; Stop 07/31/17 at 09:00; Status DC Oxybutynin Chloride (Ditropan) 5 mg [id number] PO Last administered on 09/12/17 20 :08; Start 07/31/17 at 09:00 Quetiapine Fumarate (SEROquel) 100 mg BID PO Last administered on 08/08/17at 20: 51; Start 07/31/17 at 09:00; Stop 08/09/17 at 18:03; Status DC Acetaminophen (Tylenol) 500 mg PRN Q4HRS PRN PO PAIN Last administered on 20:16; Start 07/31/17 at 07:15 Levothyroxine Sodium (Synthroid) 200 mcg DAILY06 PO Last administered on at 05:48; Start 07/31/17 at 07:15 Fish Oil (Fish Oil) 1,000 mg DAILY PO Last administered on 07/31/17at 09:36; Start 07/31/17 at 09:00; Stop 08/01/17 at 09:51; Status DC Selenium Sulfide (Selsun) 1 carlee TWICEWEEKLY TP ; Start 07/31/17 at 07:30; Stop 07/31/17 at 14:29; Status DC Divalproex Sodium (Depakote Er) 1,000 mg QHS PO Last administered on 07/31/17at 20:26; Start 07/31/17 at 21:00; Stop 08/01/17 at 18:29; Status DC Atorvastatin Calcium (Lipitor) 10 mg QHS PO Last administered on 09/12/17 20: 08; Start 07/31/17 at 21:00 Divalproex Sodium (Depakote Er) 500 mg DAILY PO Last administered on 08/01/17at 09:10; Start 07/31/17 at 09:00; Stop 08/01/17 at 09:51; Status DC Olanzapine (ZyPREXA) 10 mg DAILY PO Last administered on 08/01/17at 09:30; Start 07/31/17 at 09:00; Stop 08/01/17 at 09:51; Status DC Olanzapine (ZyPREXA) 5 mg DAILY@1400 PO Last administered on 07/31/17at 15:07; Start 07/31/17 at 14:00; Stop 08/01/17 at 09:51; Status DC Selenium Sulfide (Selsun) 1 carlee TWICEWEEKLY TP ; Start 07/31/17 at 14:29 Divalproex Sodium (Depakote Er) 750 mg DAILY PO ; Start 08/02/17 at 09:00; Stop 08/02/17 at 09:00; Status DC Divalproex Sodium (Depakote Sprinkles) 750 mg BID PO Last administered on at 09:21; Start 08/01/17 at 21:00; Stop 08/04/17 at 14:28; Status DC Al Hydroxide/Mg Hydroxide (Mylanta Plus Xs) 30 ml PRN AFTMEAL PRN PO DYSPEPSIA Last administered on 09/09/17at 00:29; Start 08/03/17 at 12:00 Magnesium Hydroxide (Milk Of Magnesia) 2,400 mg PRN DAILY PRN PO CONSTIPATION Last administered on 08/14/17 20:28; Start 08/03/17 at 17:00 Divalproex Sodium (Depakote Sprinkles) 1,000 mg BID PO Last administered on at 07:51; Start 08/04/17 at 21:00; Stop 08/07/17 at 18:35; Status DC Polyethylene Glycol (miraLAX) 17 gm DAILY PO Last administered on 09/12/17at 07: 59; Start 08/05/17 at 09:00 Trazodone HCl (Desyrel) 100 mg QHS PO Last administered on 08/18/17at 19:34; Start 08/06/17 at 21:00; Stop 08/19/17 at 18:44; Status DC Trazodone HCl (Desyrel) 100 mg PRN QHS PRN PO INSOMNIA Last administered on at 21:05; Start 08/06/17 at 19:00; Stop 08/19/17 at 18:44; Status DC Divalproex Sodium (Depakote Sprinkles) 1,250 mg BID PO Last administered on at 20:51; Start 08/07/17 at 21:00; Stop 08/09/17 at 18:31; Status DC Quetiapine Fumarate (SEROquel) 50 mg BID PO Last administered on 08/19/17at 09: 19; Start 08/09/17 at 21:00; Stop 08/19/17 at 10:47; Status DC Divalproex Sodium (Depakote Sprinkles) 1,500 mg BID PO Last administered on at 08:25; Start 08/09/17 at 21:00; Stop 08/12/17 at 10:53; Status DC Trazodone HCl (Desyrel) 25 mg TID@0900,1300,1700 PO Last administered on at 17:10; Start 08/12/17 at 09:00; Stop 08/13/17 at 18:00; Status DC Divalproex Sodium (Depakote Sprinkles) 1,750 mg BID PO Last administered on at 09:32; Start 08/12/17 at 21:00; Stop 08/16/17 at 18:48; Status DC Trazodone HCl (Desyrel) 25 mg BID@1300,1700 PO Last administered on 09/12/17at 17:05; Start 08/14/17 at 13:00 Trazodone HCl (Desyrel) 50 mg DAILY PO Last administered on 09/12/17at 07:59; Start 08/14/17 at 09:00 Trazodone HCl (Desyrel) 50 mg 1X ONCE PO Last administered on 08/13/17at 18:29 ; Start 08/13/17 at 18:30; Stop 08/13/17 at 18:31; Status DC Sertraline HCl (Zoloft) 25 mg DAILY PO Last administered on 08/17/17at 07:47; Start 08/15/17 at 09:00; Stop 08/17/17 at 11:00; Status DC Sertraline HCl (Zoloft) 50 mg DAILY PO Last administered on 09/12/17at 07:59; Start 08/18/17 at 09:00 Divalproex Sodium (Depakote Sprinkles) 2,000 mg BID PO Last administered on 08/23at 09:05; Start 08/16/17 at 21:00; Stop 08/23/17 at 18:02; Status DC Buspirone HCl (Buspar) 5 mg TID@0900,1300,1700 PO Last administered on at 17:04; Start 08/17/17 at 09:00 Quetiapine Fumarate (SEROquel) 50 mg TID@0900,1300,1700 PO Last administered on 09/12/17at 17:04; Start 08/19/17 at 13:00 Mirtazapine (Remeron) 7.5 mg QHS PO Last administered on 09/10/17at 19:41; Start 08/19/17 at 21:00; Stop 09/11/17 at 19:42; Status DC Hydroxyzine HCl (Atarax) 50 mg PRN QHS PRN PO INSOMNIA, MAY REPEAT X1 Last administered on 09/11/17at 03:09; Start 08/20/17 at 22:30 Divalproex Sodium (Depakote Sprinkles) 2,250 mg BID PO Last administered on 08/26 09:06; Start 08/23/17 at 21:00; Stop 08/26/17 at 10:43; Status DC Divalproex Sodium (Depakote Sprinkles) 2,500 mg BID PO Last administered on 08/28 19:42; Start 08/26/17 at 21:00; Stop 08/28/17 at 22:15; Status DC Iohexol (Omnipaque 300 Mg/ml) 75 ml 1X ONCE IV Last administered on 08/27/17 22:59; Start 08/27/17 at 19:00; Stop 08/27/17 at 19:04; Status DC Divalproex Sodium (Depakote Sprinkles) 1,250 mg QID PO Last administered on 08/29at 17:13; Start 08/29/17 at 09:00; Stop 08/29/17 at 17:51; Status DC Divalproex Sodium (Depakote Sprinkles) 1,250 mg BID@0900,1200 PO ; Start at 09:00; Stop 08/30/17 at 09:11; Status DC Divalproex Sodium (Depakote Sprinkles) 1,375 mg BID@1700,2100 PO Last administered on 08/29/17at 19:48; Start 08/29/17 at 21:00; Stop 08/30/17 at 09:11; Status DC Valproic Acid (Depakene) 1,375 mg BID@1700,2100 PO Last administered on at 20:05; Start 08/30/17 at 17:00 Valproic Acid (Depakene) 1,250 mg BID@0900,1200 PO Last administered on at 11:53; Start 08/30/17 at 09:15 Multi-Ingredient Ointment (Analgesic [place]) 1 carlee PRN QID PRN TP MUSCLE PAIN Last administered on 09/01/17at 19:35; Start 09/01/17 at 19:15 Mirtazapine (Remeron) 15 mg QHS PO Last administered on 09/12/17at 20:08; Start 09/11/17 at 21:00 Trazodone HCl (Desyrel) 50 mg PRN QHS PRN PO INSOMNIA, MAY REPEAT X1 Last administered on 09/11/17at 19:58; Start 09/11/17 at 19:45 Active Scripts Active Reported Ibuprofen 400 Mg Tablet 400 Mg PO PRN Q4HRS PRN MDD 1200mg/24hrs Lorazepam 2 Mg/1 Ml Vial 1 Mg IM BID PRN Abilify Maintena (Aripiprazole) 400 Mg Suser.vial 400 Mg IM Q4WK Next dose due 08/26/17 Paroxetine Hcl 20 Mg Tablet 10 Mg PO DAILY Abilify (Aripiprazole) 5 Mg Tablet 5 Mg PO DAILY Fenofibrate 160 Mg Tablet 160 Mg PO QHS Olanzapine 5 Mg Tablet 5 Mg PO DAILY@1400 5mg PO daily at 14:00 Methylphenidate Hcl 10 Mg Tablet 10 Mg PO BID@0900,1300 Seroquel (Quetiapine Fumarate) 100 Mg Tablet 100 Mg PO BID Prevident 5000 (Sodium Fluoride) 100 Ml Gel..ml. 1 Carlee DT BID Selenium Sulfide 180 Ml Shampoo 1 Carlee TP TWICE WEEKLY Lorazepam 1 Mg Tablet 1 Mg PO PRN BID PRN Acetaminophen 500 Mg Tablet 500 Mg PO PRN Q4HRS PRN Risperdal Consta (Risperidone Microspheres) 25 Mg/2 Ml Disp.syrin 25 Mg IM Q2WKS Phenytoin 125 Mg/5 Ml Oral.susp 300 Mg PO QHS Zyprexa (Olanzapine) 20 Mg Tablet 20 Mg PO QHS Atorvastatin Calcium 10 Mg Tablet 10 Mg PO QHS Zyprexa (Olanzapine) 5 Mg Tablet 5 Mg PO DAILY@1400 Clozapine 200 Mg Tablet 500 Mg PO QHS Clozapine 200 Mg Tablet 200 Mg PO DAILY Detrol La (Tolterodine Tartrate) 2 Mg Cap.er.24h 2 Mg PO BID Depakote Er (Divalproex Sodium) 500 Mg Tab.er.24h 500 Mg PO DAILY Depakote Er (Divalproex Sodium) 500 Mg Tab.er.24h 1,000 Mg PO QHS [place] 3 1,000 Mg Softgel ([place]-3 Fatty Acids/Fish Oil) 1 Each Capsule 1,000 Mg PO DAILY Thera-M Tablet (Multivits,Ca,Minerals/Iron/Fa) 1 Each Tablet 1 Tab PO DAILY Vitamin D3 (Cholecalciferol (Vitamin D3)) 1,000 Unit Tablet 2,000 Unit PO DAILY Olanzapine 10 Mg Tablet 10 Mg PO DAILY Miralax (Polyethylene Glycol 3350) 119 Gm Powder 17 Gm PO DAILY Levothyroxine Sodium 200 Mcg Tablet 200 Mcg PO DAILY06 Pantoprazole Sodium 40 Mg Tablet.dr 40 Mg PO DAILY I have reviewed the current psychotropics carefully including drug interactions. Risk benefit ratio favors no change other than as noted in my dictated progress note. Diagnosis: Problems: (1) Dementia in Alzheimer's disease with delusions (2) Impulse control disorder (3) Schizoaffective disorder, chronic condition with acute exacerbation (4) Borderline intellectual disability STEVEN AYALA MD Sep 12, 2017 20:52
[2017-09-13] MEDS: LEVOTHYROXINE 100 MCG TABLET PO SCH (06:30)
[2017-09-13 06:32] VITALS: BP 92/5
[2017-09-13 07:04] LABS: BASO # 0.1 x10^3/uL (0.0-0.2); BASO % 1 % (0-3); EOS # 0.2 x10^3/uL (0.0-0.7); EOS % 3 % (0-3); HEMATOCRIT 38.7 % (39.0-53.0); HEMOGLOBIN 13.1 g/dL (13.0-17.5); LYMPH # 2.3 x10^3/uL (1.0-4.8); LYMPH % 40 % (24-48); MEAN CORPUSCULAR HEMOGLOBIN 31 pg (25-35); MEAN CORPUSCULAR HGB CONC 34 g/dL (31-37); MEAN CORPUSCULAR VOLUME 93 fL (79-100); MONO # 0.6 x10^3/uL (0.0-1.1); MONO % 10 % (0-9); NEUT # 2.6 x10^3uL (1.8-7.7); NEUT % 46 % (31-73); PLATELET COUNT 123 x10^3/uL (140-400); RED BLOOD COUNT 4.18 x10^6/uL (4.30-5.70); RED CELL DISTRIBUTION WIDTH 12.6 % (11.5-14.5); WHITE BLOOD COUNT 5.7 x10^3/uL (4.0-11.0)
[2017-09-13 07:26] LABS: ALBUMIN 2.6 g/dL (3.4-5.0); ALBUMIN/GLOBULIN RATIO 0.7 (1.0-1.7); ALK PHOS 78 U/L (46-116); ALT (SGPT) 31 U/L (16-63); ANION GAP 7 (6-14); AST (SGOT) 23 U/L (15-37); BLOOD UREA NITROGEN 19 mg/dL (8-26); BUN/CREATININE RATIO 21 (6-20); CALCIUM 8.7 mg/dL (8.5-10.1); CARBON DIOXIDE 27 mmol/L (21-32); CHLORIDE 105 mmol/L (98-107); CREATININE 0.9 mg/dL (0.7-1.3); GFR 87.9; GLUCOSE 89 mg/dL (70-99); MAGNESIUM 1.6 mg/dL (1.8-2.4); POTASSIUM 4.1 mmol/L (3.5-5.1); SODIUM 139 mmol/L (136-145); TOTAL BILIRUBIN 0.2 mg/dL (0.2-1.0); TOTAL PROTEIN 6.1 g/dL (6.4-8.2)
[2017-09-13 07:31] LABS: VAL ACID 48 mcg/mL (50-100)
[2017-09-13 07:52] VITALS: BP 100/68
[2017-09-13] MEDS: POLYETHYLENE GLYCOL 3350 17 GM PACKET. PO SCH (08:20)
[2017-09-13] MEDS: SERTRALINE 25 MG TABLET. PO SCH (08:21)
[2017-09-13] MEDS: cloZAPine 100 MG TABLET PO SCH ×2 (08:21→19:56)
[2017-09-13] MEDS: traZODone 50 MG TABLET. PO SCH ×3 (08:21→17:06)
[2017-09-13] MEDS: VALPROATE ACID 250 MG/5 ML ORAL SOLUTION PO SCH ×4 (08:21→19:54)
[2017-09-13] MEDS: busPIRone 5 MG TABLET. PO SCH ×3 (08:21→17:06)
[2017-09-13] MEDS: OXYBUTYNIN CHLORIDE 5 MG TABLET PO SCH ×3 (08:21→19:56)
[2017-09-13] MEDS: QUEtiapine 50 MG TABLET. PO SCH ×3 (08:22→17:06)
--- NOTE | 2017-09-13 15:54 | PN ---
DATE: 09/11/2017 PSYCHIATRIC PROGRESS NOTE This is a late entry of 09/11/2017 covers elements not covered in my initial note of 09/11/2017. SUBJECTIVE: I met with the patient evening of 09/11/2017. The patient slept just 1-3/4 hours previous evening and we started him on trazodone 50 mg at bedtime p.r.n., may repeat x 1 to help with this. He slept off a lot ____. We will also increase the Remeron from 7.5 mg to 15 mg at bedtime. REVIEW OF SYSTEMS: No CV, , pulmonary, eye, ENT system symptoms on review, though he does occasionally states ____ from side to side. Either part of his intellectual disability or psychosis is more likely the first one is most probable ____. No CV, , pulmonary, eye system symptoms on review. MENTAL STATUS EXAM: Oriented to himself and situation. Speech is coherent, somewhat rapid at times. Abstraction fair, computation impaired, language function intact. Mood and affect less labile, much less obsessive. LABORATORY DATA: Reviewed. IMPRESSION: Unchanged from initial note. PLAN: Continue psychotropics mentioned in my initial note. STEVEN AYALA MD DR: ADALBERTO/garry JOB#: [id number] / [id number]
[2017-09-13 16:18] VITALS: BP 107/60
[2017-09-13] MEDS: MIRTAZAPINE 7.5 MG TABLET. PO SCH (19:56)
[2017-09-13] MEDS: PHENYTOIN SODIUM EXTENDED 100 MG CAPSULE PO SCH (19:56)
[2017-09-13] MEDS: ATORVASTATIN CALCIUM 10 MG TABLET. PO SCH (19:57)
--- NOTE | 2017-09-13 20:48 | PDOC ---
Exam Note: Chad Note: Please also refer to the separate dictated note~for this date of service dictated separately.~Patient seen individually. Discussed the patient with Nursing staff reviewed the chart.~Reviewed interim history and current functioning. Reviewed vital signs,~Labs/ Radiology~and current medications noted below. Continue current treatment with the changes noted in the dictated addendum note Assessment: Vital Signs: Vital Signs Date Time Temp Pulse Resp B/P (MAP) Pulse Ox O2 Delivery O2 Flow Rate FiO2 09/13/17 16:18 98.5 71 22 107/60 (76) 96 09/13/17 06:32 Room Air I&O Intake and Output 09/13/17 07:00 Intake Total 1740 ml Balance 1740 ml Intake Oral 1740 ml # Voids 1 Labs: Laboratory Tests Test 09/13/17 06:29 White Blood Count 5.7 x10^3/uL (4.0-11.0) Red Blood Count 4.18 x10^6/uL (4.30-5.70) L Hemoglobin 13.1 g/dL (13.0-17.5) Hematocrit 38.7 % (39.0-53.0) L Mean Corpuscular Volume 93 fL (79-100) Mean Corpuscular Hemoglobin 31 pg (25-35) Mean Corpuscular Hemoglobin Concent 34 g/dL (31-37) Red Cell Distribution Width 12.6 % (11.5-14.5) Platelet Count 123 x10^3/uL (140-400) L Neutrophils (%) (Auto) 46 % (31-73) Lymphocytes (%) (Auto) 40 % (24-48) Monocytes (%) (Auto) 10 % (0-9) H Eosinophils (%) (Auto) 3 % (0-3) Basophils (%) (Auto) 1 % (0-3) Neutrophils # (Auto) 2.6 x10^3uL (1.8-7.7) Lymphocytes # (Auto) 2.3 x10^3/uL (1.0-4.8) Monocytes # (Auto) 0.6 x10^3/uL (0.0-1.1) Eosinophils # (Auto) 0.2 x10^3/uL (0.0-0.7) Basophils # (Auto) 0.1 x10^3/uL (0.0-0.2) Sodium Level 139 mmol/L (136-145) Potassium Level 4.1 mmol/L (3.5-5.1) Chloride Level 105 mmol/L (98-107) Carbon Dioxide Level 27 mmol/L (21-32) Anion Gap 7 (6-14) Blood Urea Nitrogen 19 mg/dL (8-26) Creatinine 0.9 mg/dL (0.7-1.3) Estimated GFR (Cockcroft-Gault) 87.9 BUN/Creatinine Ratio 21 (6-20) H Glucose Level 89 mg/dL (70-99) Calcium Level 8.7 mg/dL (8.5-10.1) Magnesium Level 1.6 mg/dL (1.8-2.4) L Total Bilirubin 0.2 mg/dL (0.2-1.0) Aspartate Amino Transferase (AST) 23 U/L (15-37) Alanine Aminotransferase (ALT) 31 U/L (16-63) Alkaline Phosphatase 78 U/L (46-116) Total Protein 6.1 g/dL (6.4-8.2) L Albumin 2.6 g/dL (3.4-5.0) L Albumin/Globulin Ratio 0.7 (1.0-1.7) L Valproic Acid Level 48 mcg/mL (50-100) L Valproic Acid Last Dose Date 09/12/17 Valproic Acid Last Dose Time 2100 Current Medications: Meds: Current Medications Valproic Acid (Depakene) 500 mg STAT PO Last administered on 07/30/17at 21:21; Start 07/30/17 at 20:49; Stop 08/01/17 at 15:23; Status DC Divalproex Sodium (Depakote Er) 1,000 mg QHS PO ; Start 07/31/17 at 21:00; Stop 07/31/17 at 21:00; Status DC Divalproex Sodium (Depakote Er) 500 mg DAILY PO ; Start 07/31/17 at 09:00; Stop 07/31/17 at 09:00; Status DC Lorazepam (Ativan) 1 mg PRN BID PRN PO ANXIETY / AGITATION Last administered on 09/05/17at 13:07; Start 07/30/17 at 23:00 Olanzapine (ZyPREXA) 10 mg DAILY PO ; Start 07/31/17 at 09:00; Stop 07/31/17 at 09:00; Status DC Olanzapine (ZyPREXA) 5 mg DAILY@1400 PO ; Start 07/31/17 at 14:00; Stop at 14:00; Status DC Risperidone (RisperDAL CONSTA) 25 mg Q2WKS IM ; Start 08/13/17 at 09:00; Status UNV Clozapine (Clozaril) 200 mg DAILY PO Last administered on 09/13/17 08:21; Start 07/31/17 at 09:00 Clozapine (Clozaril) 500 mg QHS PO Last administered on 09/13/17 19:56; Start 07/31/17 at 21:00 Olanzapine (ZyPREXA) 20 mg QHS PO Last administered on 07/31/17 20:28; Start 07/31/17 at 21:00; Stop 08/01/17 at 09:51; Status DC Atorvastatin Calcium (Lipitor) 10 mg QHS PO ; Start 07/31/17 at 21:00; Stop 03/10 at 21:00; Status DC Phenytoin Sodium (Dilantin) 300 mg QHS PO Last administered on 09/13/17 19:56 ; Start 07/31/17 at 21:00 Non-Formulary Medication (Sodium Fluoride (Prevident 5000)) 1 carlee BID DT ; Start 07/31/17 at 09:00; Stop 07/31/17 at 09:00; Status DC Oxybutynin Chloride (Ditropan) 5 mg [id number] PO Last administered on 09/13/17 19 :56; Start 07/31/17 at 09:00 Quetiapine Fumarate (SEROquel) 100 mg BID PO Last administered on 08/08/17 20: 51; Start 07/31/17 at 09:00; Stop 08/09/17 at 18:03; Status DC Acetaminophen (Tylenol) 500 mg PRN Q4HRS PRN PO PAIN Last administered on 20:16; Start 07/31/17 at 07:15 Levothyroxine Sodium (Synthroid) 200 mcg DAILY06 PO Last administered on at 06:30; Start 07/31/17 at 07:15 Fish Oil (Fish Oil) 1,000 mg DAILY PO Last administered on 07/31/17at 09:36; Start 07/31/17 at 09:00; Stop 08/01/17 at 09:51; Status DC Selenium Sulfide (Selsun) 1 carlee TWICEWEEKLY TP ; Start 07/31/17 at 07:30; Stop 07/31/17 at 14:29; Status DC Divalproex Sodium (Depakote Er) 1,000 mg QHS PO Last administered on 07/31/17at 20:26; Start 07/31/17 at 21:00; Stop 08/01/17 at 18:29; Status DC Atorvastatin Calcium (Lipitor) 10 mg QHS PO Last administered on 09/13/17at 19: 57; Start 07/31/17 at 21:00 Divalproex Sodium (Depakote Er) 500 mg DAILY PO Last administered on 08/01/17at 09:10; Start 07/31/17 at 09:00; Stop 08/01/17 at 09:51; Status DC Olanzapine (ZyPREXA) 10 mg DAILY PO Last administered on 08/01/17at 09:30; Start 07/31/17 at 09:00; Stop 08/01/17 at 09:51; Status DC Olanzapine (ZyPREXA) 5 mg DAILY@1400 PO Last administered on 07/31/17at 15:07; Start 07/31/17 at 14:00; Stop 08/01/17 at 09:51; Status DC Selenium Sulfide (Selsun) 1 carlee TWICEWEEKLY TP ; Start 07/31/17 at 14:29 Divalproex Sodium (Depakote Er) 750 mg DAILY PO ; Start 08/02/17 at 09:00; Stop 08/02/17 at 09:00; Status DC Divalproex Sodium (Depakote Sprinkles) 750 mg BID PO Last administered on at 09:21; Start 08/01/17 at 21:00; Stop 08/04/17 at 14:28; Status DC Al Hydroxide/Mg Hydroxide (Mylanta Plus Xs) 30 ml PRN AFTMEAL PRN PO DYSPEPSIA Last administered on 09/09/17at 00:29; Start 08/03/17 at 12:00 Magnesium Hydroxide (Milk Of Magnesia) 2,400 mg PRN DAILY PRN PO CONSTIPATION Last administered on 08/14/17 20:28; Start 08/03/17 at 17:00 Divalproex Sodium (Depakote Sprinkles) 1,000 mg BID PO Last administered on at 07:51; Start 08/04/17 at 21:00; Stop 08/07/17 at 18:35; Status DC Polyethylene Glycol (miraLAX) 17 gm DAILY PO Last administered on 09/13/17 08: 20; Start 08/05/17 at 09:00 Trazodone HCl (Desyrel) 100 mg QHS PO Last administered on 08/18/17at 19:34; Start 08/06/17 at 21:00; Stop 08/19/17 at 18:44; Status DC Trazodone HCl (Desyrel) 100 mg PRN QHS PRN PO INSOMNIA Last administered on 21:05; Start 08/06/17 at 19:00; Stop 08/19/17 at 18:44; Status DC Divalproex Sodium (Depakote Sprinkles) 1,250 mg BID PO Last administered on 20:51; Start 08/07/17 at 21:00; Stop 08/09/17 at 18:31; Status DC Quetiapine Fumarate (SEROquel) 50 mg BID PO Last administered on 08/19/17 09: 19; Start 08/09/17 at 21:00; Stop 08/19/17 at 10:47; Status DC Divalproex Sodium (Depakote Sprinkles) 1,500 mg BID PO Last administered on at 08:25; Start 08/09/17 at 21:00; Stop 08/12/17 at 10:53; Status DC Trazodone HCl (Desyrel) 25 mg TID@0900,1300,1700 PO Last administered on at 17:10; Start 08/12/17 at 09:00; Stop 08/13/17 at 18:00; Status DC Divalproex Sodium (Depakote Sprinkles) 1,750 mg BID PO Last administered on 09:32; Start 08/12/17 at 21:00; Stop 08/16/17 at 18:48; Status DC Trazodone HCl (Desyrel) 25 mg BID@1300,1700 PO Last administered on 09/13/17 17:06; Start 08/14/17 at 13:00 Trazodone HCl (Desyrel) 50 mg DAILY PO Last administered on 09/13/17 08:21; Start 08/14/17 at 09:00 Trazodone HCl (Desyrel) 50 mg 1X ONCE PO Last administered on 08/13/17at 18:29 ; Start 08/13/17 at 18:30; Stop 08/13/17 at 18:31; Status DC Sertraline HCl (Zoloft) 25 mg DAILY PO Last administered on 08/17/17at 07:47; Start 08/15/17 at 09:00; Stop 08/17/17 at 11:00; Status DC Sertraline HCl (Zoloft) 50 mg DAILY PO Last administered on 09/13/17 08:21; Start 08/18/17 at 09:00 Divalproex Sodium (Depakote Sprinkles) 2,000 mg BID PO Last administered on 08/23at 09:05; Start 08/16/17 at 21:00; Stop 08/23/17 at 18:02; Status DC Buspirone HCl (Buspar) 5 mg TID@0900,1300,1700 PO Last administered on 17:06; Start 08/17/17 at 09:00 Quetiapine Fumarate (SEROquel) 50 mg TID@0900,1300,1700 PO Last administered on 09/13/17 17:06; Start 08/19/17 at 13:00 Mirtazapine (Remeron) 7.5 mg QHS PO Last administered on 09/10/17at 19:41; Start 08/19/17 at 21:00; Stop 09/11/17 at 19:42; Status DC Hydroxyzine HCl (Atarax) 50 mg PRN QHS PRN PO INSOMNIA, MAY REPEAT X1 Last administered on 09/11/17at 03:09; Start 08/20/17 at 22:30 Divalproex Sodium (Depakote Sprinkles) 2,250 mg BID PO Last administered on 08/26 09:06; Start 08/23/17 at 21:00; Stop 08/26/17 at 10:43; Status DC Divalproex Sodium (Depakote Sprinkles) 2,500 mg BID PO Last administered on 08/28 19:42; Start 08/26/17 at 21:00; Stop 08/28/17 at 22:15; Status DC Iohexol (Omnipaque 300 Mg/ml) 75 ml 1X ONCE IV Last administered on 08/27/17at 22:59; Start 08/27/17 at 19:00; Stop 08/27/17 at 19:04; Status DC Divalproex Sodium (Depakote Sprinkles) 1,250 mg QID PO Last administered on 08/29 17:13; Start 08/29/17 at 09:00; Stop 08/29/17 at 17:51; Status DC Divalproex Sodium (Depakote Sprinkles) 1,250 mg BID@0900,1200 PO ; Start at 09:00; Stop 08/30/17 at 09:11; Status DC Divalproex Sodium (Depakote Sprinkles) 1,375 mg BID@1700,2100 PO Last administered on 08/29/17 19:48; Start 08/29/17 at 21:00; Stop 08/30/17 at 09:11; Status DC Valproic Acid (Depakene) 1,375 mg BID@1700,2100 PO Last administered on 19:54; Start 08/30/17 at 17:00 Valproic Acid (Depakene) 1,250 mg BID@0900,1200 PO Last administered on at 12:07; Start 08/30/17 at 09:15 Multi-Ingredient Ointment (Analgesic [place]) 1 carlee PRN QID PRN TP MUSCLE PAIN Last administered on 09/01/17 19:35; Start 09/01/17 at 19:15 Mirtazapine (Remeron) 15 mg QHS PO Last administered on 09/13/17 19:56; Start 09/11/17 at 21:00 Trazodone HCl (Desyrel) 50 mg PRN QHS PRN PO INSOMNIA, MAY REPEAT X1 Last administered on 4/21/18at 19:58; Start 09/11/17 at 19:45 Active Scripts Active Reported Ibuprofen 400 Mg Tablet 400 Mg PO PRN Q4HRS PRN MDD 1200mg/24hrs Lorazepam 2 Mg/1 Ml Vial 1 Mg IM BID PRN Abilify Maintena (Aripiprazole) 400 Mg Suser.vial 400 Mg IM Q4WK Next dose due 08/26/17 Paroxetine Hcl 20 Mg Tablet 10 Mg PO DAILY Abilify (Aripiprazole) 5 Mg Tablet 5 Mg PO DAILY Fenofibrate 160 Mg Tablet 160 Mg PO QHS Olanzapine 5 Mg Tablet 5 Mg PO DAILY@1400 5mg PO daily at 14:00 Methylphenidate Hcl 10 Mg Tablet 10 Mg PO BID@0900,1300 Seroquel (Quetiapine Fumarate) 100 Mg Tablet 100 Mg PO BID Prevident 5000 (Sodium Fluoride) 100 Ml Gel..ml. 1 Carlee DT BID Selenium Sulfide 180 Ml Shampoo 1 Carlee TP TWICE WEEKLY Lorazepam 1 Mg Tablet 1 Mg PO PRN BID PRN Acetaminophen 500 Mg Tablet 500 Mg PO PRN Q4HRS PRN Risperdal Consta (Risperidone Microspheres) 25 Mg/2 Ml Disp.syrin 25 Mg IM Q2WKS Phenytoin 125 Mg/5 Ml Oral.susp 300 Mg PO QHS Zyprexa (Olanzapine) 20 Mg Tablet 20 Mg PO QHS Atorvastatin Calcium 10 Mg Tablet 10 Mg PO QHS Zyprexa (Olanzapine) 5 Mg Tablet 5 Mg PO DAILY@1400 Clozapine 200 Mg Tablet 500 Mg PO QHS Clozapine 200 Mg Tablet 200 Mg PO DAILY Detrol La (Tolterodine Tartrate) 2 Mg Cap.er.24h 2 Mg PO BID Depakote Er (Divalproex Sodium) 500 Mg Tab.er.24h 500 Mg PO DAILY Depakote Er (Divalproex Sodium) 500 Mg Tab.er.24h 1,000 Mg PO QHS Hulen 3 1,000 Mg Softgel (Hulen-3 Fatty Acids/Fish Oil) 1 Each Capsule 1,000 Mg PO DAILY Thera-M Tablet (Multivits,Ca,Minerals/Iron/Fa) 1 Each Tablet 1 Tab PO DAILY Vitamin D3 (Cholecalciferol (Vitamin D3)) 1,000 Unit Tablet 2,000 Unit PO DAILY Olanzapine 10 Mg Tablet 10 Mg PO DAILY Miralax (Polyethylene Glycol 3350) 119 Gm Powder 17 Gm PO DAILY Levothyroxine Sodium 200 Mcg Tablet 200 Mcg PO DAILY06 Pantoprazole Sodium 40 Mg Tablet. 40 Mg PO DAILY I have reviewed the current psychotropics carefully including drug interactions. Risk benefit ratio favors no change other than as noted in my dictated progress note. Diagnosis: Problems: (1) Dementia in Alzheimer's disease with delusions (2) Impulse control disorder (3) Schizoaffective disorder, chronic condition with acute exacerbation (4) Borderline intellectual disability STEVEN AYALA MD Sep 13, 2017 20:48
--- NOTE | 2017-09-14 01:50 | PN ---
DATE: 09/12/2017 This is a late entry of 09/12/2017 covers elements not covered in my initial note of 09/12/2017. SUBJECTIVE: I met with the patient in the afternoon. This note is being re-dictated as requested by medical records. The patient did well the previous evening, had some emesis after lunch. Less manic, less irritable, less psychotic. REVIEW OF SYSTEMS: No CV, , pulmonary, eye system symptoms on review. MENTAL STATUS EXAM: Oriented to himself and situation. Speech coherent, less pressured. Abstraction fair, computation impaired, language function intact. Mood and affect less labile. LABORATORY DATA: Reviewed. IMPRESSION: Unchanged from initial note. PLAN: Continue current psychotropics. MAN Suleman AYALA MD DR: ADALBERTO/garry JOB#: [id number] / [id number]
--- NOTE | 2017-09-14 01:52 | PN ---
DATE: 09/11/2017 This is a late entry for 09/11/2017 and covers elements not covered in my initial note of 09/11/2017. SUBJECTIVE: I met with the patient in the evening and this note is being redictated as requested by medical records. The patient slept just 1-3/4 hours previous evening and we will start trazodone 50 mg at bedtime p.r.n., may repeat x 1 to help with this along with increasing Remeron to 15 mg at bedtime. He slept during the day to compensate for the previous night. REVIEW OF SYSTEMS: No CV, , pulmonary, eye system symptoms on review. He still has some intermittent psychotic symptoms, believes someone is slapping him on the face, moves his face to the right and the left, but redirects. MENTAL STATUS EXAM: Oriented to himself and situation. Speech coherent, less pressured. Abstraction fair, computation impaired, language function intact. Mood and affect, lability is improved. LABORATORY DATA: Reviewed. IMPRESSION: Schizoaffective disorder, bipolar type. Intellectual disability. PLAN: Continue current psychotropics with changes noted above. MAN Suleman AYALA MD DR: ADALBERTO/garry JOB#: [id number] / [id number]
[2017-09-14] MEDS: LEVOTHYROXINE 100 MCG TABLET PO SCH (05:38)
[2017-09-14 06:30] VITALS: BP 108/56
[2017-09-14] MEDS: VALPROATE ACID 250 MG/5 ML ORAL SOLUTION PO SCH ×4 (08:38→19:16)
[2017-09-14] MEDS: traZODone 50 MG TABLET. PO SCH ×3 (08:39→17:18)
[2017-09-14] MEDS: cloZAPine 100 MG TABLET PO SCH ×2 (08:39→19:21)
[2017-09-14] MEDS: SERTRALINE 25 MG TABLET. PO SCH (08:39)
[2017-09-14] MEDS: QUEtiapine 50 MG TABLET. PO SCH ×3 (08:39→17:19)
[2017-09-14] MEDS: busPIRone 5 MG TABLET. PO SCH ×3 (08:39→17:19)
[2017-09-14] MEDS: OXYBUTYNIN CHLORIDE 5 MG TABLET PO SCH ×3 (08:39→19:21)
[2017-09-14] MEDS: POLYETHYLENE GLYCOL 3350 17 GM PACKET. PO SCH (08:39)
[2017-09-14] MEDS: PHENYTOIN SODIUM EXTENDED 100 MG CAPSULE PO SCH (19:21)
[2017-09-14] MEDS: ATORVASTATIN CALCIUM 10 MG TABLET. PO SCH (19:21)
[2017-09-14] MEDS: MIRTAZAPINE 7.5 MG TABLET. PO SCH (19:22)
--- NOTE | 2017-09-14 20:47 | PDOC ---
Exam Note: Chad Note: Please also refer to the separate dictated note~for this date of service dictated separately.~Patient seen individually. Discussed the patient with Nursing staff reviewed the chart.~Reviewed interim history and current functioning. Reviewed vital signs,~Labs/ Radiology~and current medications noted below. Continue current treatment with the changes noted in the dictated addendum note Assessment: Vital Signs: Vital Signs Date Time Temp Pulse Resp B/P (MAP) Pulse Ox O2 Delivery O2 Flow Rate FiO2 09/14/17 06:30 97.4 62 18 108/56 (73) 97 09/13/17 06:32 Room Air I&O Intake and Output 09/14/17 07:00 Intake Total 2220 ml Balance 2220 ml Intake Oral 2220 ml Current Medications: Meds: Current Medications Valproic Acid (Depakene) 500 mg STAT PO Last administered on 07/30/17at 21:21; Start 07/30/17 at 20:49; Stop 08/01/17 at 15:23; Status DC Divalproex Sodium (Depakote Er) 1,000 mg QHS PO ; Start 07/31/17 at 21:00; Stop 07/31/17 at 21:00; Status DC Divalproex Sodium (Depakote Er) 500 mg DAILY PO ; Start 07/31/17 at 09:00; Stop 07/31/17 at 09:00; Status DC Lorazepam (Ativan) 1 mg PRN BID PRN PO ANXIETY / AGITATION Last administered on 09/05/17at 13:07; Start 07/30/17 at 23:00 Olanzapine (ZyPREXA) 10 mg DAILY PO ; Start 07/31/17 at 09:00; Stop 07/31/17 at 09:00; Status DC Olanzapine (ZyPREXA) 5 mg DAILY@1400 PO ; Start 07/31/17 at 14:00; Stop at 14:00; Status DC Risperidone (RisperDAL CONSTA) 25 mg Q2WKS IM ; Start 08/13/17 at 09:00; Status UNV Clozapine (Clozaril) 200 mg DAILY PO Last administered on 09/14/17at 08:39; Start 07/31/17 at 09:00 Clozapine (Clozaril) 500 mg QHS PO Last administered on 09/14/17at 19:21; Start 07/31/17 at 21:00 Olanzapine (ZyPREXA) 20 mg QHS PO Last administered on 07/31/17 20:28; Start 07/31/17 at 21:00; Stop 08/01/17 at 09:51; Status DC Atorvastatin Calcium (Lipitor) 10 mg QHS PO ; Start 07/31/17 at 21:00; Stop 03/10 at 21:00; Status DC Phenytoin Sodium (Dilantin) 300 mg QHS PO Last administered on 09/14/17 19:21 ; Start 07/31/17 at 21:00 Non-Formulary Medication (Sodium Fluoride (Prevident 5000)) 1 carlee BID DT ; Start 07/31/17 at 09:00; Stop 07/31/17 at 09:00; Status DC Oxybutynin Chloride (Ditropan) 5 mg [id number] PO Last administered on 09/14/17 19 :21; Start 07/31/17 at 09:00 Quetiapine Fumarate (SEROquel) 100 mg BID PO Last administered on 08/08/17 20: 51; Start 07/31/17 at 09:00; Stop 08/09/17 at 18:03; Status DC Acetaminophen (Tylenol) 500 mg PRN Q4HRS PRN PO PAIN Last administered on 20:16; Start 07/31/17 at 07:15 Levothyroxine Sodium (Synthroid) 200 mcg DAILY06 PO Last administered on at 05:38; Start 07/31/17 at 07:15 Fish Oil (Fish Oil) 1,000 mg DAILY PO Last administered on 07/31/17at 09:36; Start 07/31/17 at 09:00; Stop 08/01/17 at 09:51; Status DC Selenium Sulfide (Selsun) 1 carlee TWICEWEEKLY TP ; Start 07/31/17 at 07:30; Stop 07/31/17 at 14:29; Status DC Divalproex Sodium (Depakote Er) 1,000 mg QHS PO Last administered on 07/31/17 20:26; Start 07/31/17 at 21:00; Stop 08/01/17 at 18:29; Status DC Atorvastatin Calcium (Lipitor) 10 mg QHS PO Last administered on 09/14/17 19: 21; Start 07/31/17 at 21:00 Divalproex Sodium (Depakote Er) 500 mg DAILY PO Last administered on 08/01/17at 09:10; Start 07/31/17 at 09:00; Stop 08/01/17 at 09:51; Status DC Olanzapine (ZyPREXA) 10 mg DAILY PO Last administered on 08/01/17at 09:30; Start 07/31/17 at 09:00; Stop 08/01/17 at 09:51; Status DC Olanzapine (ZyPREXA) 5 mg DAILY@1400 PO Last administered on 07/31/17at 15:07; Start 07/31/17 at 14:00; Stop 08/01/17 at 09:51; Status DC Selenium Sulfide (Selsun) 1 carlee TWICEWEEKLY TP ; Start 07/31/17 at 14:29 Divalproex Sodium (Depakote Er) 750 mg DAILY PO ; Start 08/02/17 at 09:00; Stop 08/02/17 at 09:00; Status DC Divalproex Sodium (Depakote Sprinkles) 750 mg BID PO Last administered on 09:21; Start 08/01/17 at 21:00; Stop 08/04/17 at 14:28; Status DC Al Hydroxide/Mg Hydroxide (Mylanta Plus Xs) 30 ml PRN AFTMEAL PRN PO DYSPEPSIA Last administered on 09/09/17at 00:29; Start 08/03/17 at 12:00 Magnesium Hydroxide (Milk Of Magnesia) 2,400 mg PRN DAILY PRN PO CONSTIPATION Last administered on 08/14/17 20:28; Start 08/03/17 at 17:00 Divalproex Sodium (Depakote Sprinkles) 1,000 mg BID PO Last administered on 07:51; Start 08/04/17 at 21:00; Stop 08/07/17 at 18:35; Status DC Polyethylene Glycol (miraLAX) 17 gm DAILY PO Last administered on 09/14/17 08: 39; Start 08/05/17 at 09:00 Trazodone HCl (Desyrel) 100 mg QHS PO Last administered on 08/18/17at 19:34; Start 08/06/17 at 21:00; Stop 08/19/17 at 18:44; Status DC Trazodone HCl (Desyrel) 100 mg PRN QHS PRN PO INSOMNIA Last administered on at 21:05; Start 08/06/17 at 19:00; Stop 08/19/17 at 18:44; Status DC Divalproex Sodium (Depakote Sprinkles) 1,250 mg BID PO Last administered on at 20:51; Start 08/07/17 at 21:00; Stop 08/09/17 at 18:31; Status DC Quetiapine Fumarate (SEROquel) 50 mg BID PO Last administered on 08/19/17at 09: 19; Start 08/09/17 at 21:00; Stop 08/19/17 at 10:47; Status DC Divalproex Sodium (Depakote Sprinkles) 1,500 mg BID PO Last administered on at 08:25; Start 08/09/17 at 21:00; Stop 08/12/17 at 10:53; Status DC Trazodone HCl (Desyrel) 25 mg TID@0900,1300,1700 PO Last administered on at 17:10; Start 08/12/17 at 09:00; Stop 08/13/17 at 18:00; Status DC Divalproex Sodium (Depakote Sprinkles) 1,750 mg BID PO Last administered on at 09:32; Start 08/12/17 at 21:00; Stop 08/16/17 at 18:48; Status DC Trazodone HCl (Desyrel) 25 mg BID@1300,1700 PO Last administered on 09/14/17at 17:18; Start 08/14/17 at 13:00 Trazodone HCl (Desyrel) 50 mg DAILY PO Last administered on 09/14/17at 08:39; Start 08/14/17 at 09:00 Trazodone HCl (Desyrel) 50 mg 1X ONCE PO Last administered on 08/13/17at 18:29 ; Start 08/13/17 at 18:30; Stop 08/13/17 at 18:31; Status DC Sertraline HCl (Zoloft) 25 mg DAILY PO Last administered on 08/17/17at 07:47; Start 08/15/17 at 09:00; Stop 08/17/17 at 11:00; Status DC Sertraline HCl (Zoloft) 50 mg DAILY PO Last administered on 09/14/17at 08:39; Start 08/18/17 at 09:00 Divalproex Sodium (Depakote Sprinkles) 2,000 mg BID PO Last administered on 08/23at 09:05; Start 08/16/17 at 21:00; Stop 08/23/17 at 18:02; Status DC Buspirone HCl (Buspar) 5 mg TID@0900,1300,1700 PO Last administered on 17:19; Start 08/17/17 at 09:00 Quetiapine Fumarate (SEROquel) 50 mg TID@0900,1300,1700 PO Last administered on 09/14/17 17:19; Start 08/19/17 at 13:00 Mirtazapine (Remeron) 7.5 mg QHS PO Last administered on 09/10/17at 19:41; Start 08/19/17 at 21:00; Stop 09/11/17 at 19:42; Status DC Hydroxyzine HCl (Atarax) 50 mg PRN QHS PRN PO INSOMNIA, MAY REPEAT X1 Last administered on 09/11/17at 03:09; Start 08/20/17 at 22:30 Divalproex Sodium (Depakote Sprinkles) 2,250 mg BID PO Last administered on 08/26 09:06; Start 08/23/17 at 21:00; Stop 08/26/17 at 10:43; Status DC Divalproex Sodium (Depakote Sprinkles) 2,500 mg BID PO Last administered on 08/28 19:42; Start 08/26/17 at 21:00; Stop 08/28/17 at 22:15; Status DC Iohexol (Omnipaque 300 Mg/ml) 75 ml 1X ONCE IV Last administered on 08/27/17at 22:59; Start 08/27/17 at 19:00; Stop 08/27/17 at 19:04; Status DC Divalproex Sodium (Depakote Sprinkles) 1,250 mg QID PO Last administered on 08/29 17:13; Start 08/29/17 at 09:00; Stop 08/29/17 at 17:51; Status DC Divalproex Sodium (Depakote Sprinkles) 1,250 mg BID@0900,1200 PO ; Start at 09:00; Stop 08/30/17 at 09:11; Status DC Divalproex Sodium (Depakote Sprinkles) 1,375 mg BID@1700,2100 PO Last administered on 08/29/17at 19:48; Start 08/29/17 at 21:00; Stop 08/30/17 at 09:11; Status DC Valproic Acid (Depakene) 1,375 mg BID@1700,2100 PO Last administered on at 19:16; Start 08/30/17 at 17:00 Valproic Acid (Depakene) 1,250 mg BID@0900,1200 PO Last administered on at 13:34; Start 08/30/17 at 09:15 Multi-Ingredient Ointment (Analgesic [place]) 1 carlee PRN QID PRN TP MUSCLE PAIN Last administered on 09/01/17at 19:35; Start 09/01/17 at 19:15 Mirtazapine (Remeron) 15 mg QHS PO Last administered on 09/14/17at 19:22; Start 09/11/17 at 21:00 Trazodone HCl (Desyrel) 50 mg PRN QHS PRN PO INSOMNIA, MAY REPEAT X1 Last administered on 09/11/17at 19:58; Start 09/11/17 at 19:45 Active Scripts Active Reported Ibuprofen 400 Mg Tablet 400 Mg PO PRN Q4HRS PRN MDD 1200mg/24hrs Lorazepam 2 Mg/1 Ml Vial 1 Mg IM BID PRN Abilify Maintena (Aripiprazole) 400 Mg Suser.vial 400 Mg IM Q4WK Next dose due 08/26/17 Paroxetine Hcl 20 Mg Tablet 10 Mg PO DAILY Abilify (Aripiprazole) 5 Mg Tablet 5 Mg PO DAILY Fenofibrate 160 Mg Tablet 160 Mg PO QHS Olanzapine 5 Mg Tablet 5 Mg PO DAILY@1400 5mg PO daily at 14:00 Methylphenidate Hcl 10 Mg Tablet 10 Mg PO BID@0900,1300 Seroquel (Quetiapine Fumarate) 100 Mg Tablet 100 Mg PO BID Prevident 5000 (Sodium Fluoride) 100 Ml Gel..ml. 1 Carlee DT BID Selenium Sulfide 180 Ml Shampoo 1 Carlee TP TWICE WEEKLY Lorazepam 1 Mg Tablet 1 Mg PO PRN BID PRN Acetaminophen 500 Mg Tablet 500 Mg PO PRN Q4HRS PRN Risperdal Consta (Risperidone Microspheres) 25 Mg/2 Ml Disp.syrin 25 Mg IM Q2WKS Phenytoin 125 Mg/5 Ml Oral.susp 300 Mg PO QHS Zyprexa (Olanzapine) 20 Mg Tablet 20 Mg PO QHS Atorvastatin Calcium 10 Mg Tablet 10 Mg PO QHS Zyprexa (Olanzapine) 5 Mg Tablet 5 Mg PO DAILY@1400 Clozapine 200 Mg Tablet 500 Mg PO QHS Clozapine 200 Mg Tablet 200 Mg PO DAILY Detrol La (Tolterodine Tartrate) 2 Mg Cap.er.24h 2 Mg PO BID Depakote Er (Divalproex Sodium) 500 Mg Tab.er.24h 500 Mg PO DAILY Depakote Er (Divalproex Sodium) 500 Mg Tab.er.24h 1,000 Mg PO QHS [place] 3 1,000 Mg Softgel ([place]-3 Fatty Acids/Fish Oil) 1 Each Capsule 1,000 Mg PO DAILY Thera-M Tablet (Multivits,Ca,Minerals/Iron/Fa) 1 Each Tablet 1 Tab PO DAILY Vitamin D3 (Cholecalciferol (Vitamin D3)) 1,000 Unit Tablet 2,000 Unit PO DAILY Olanzapine 10 Mg Tablet 10 Mg PO DAILY Miralax (Polyethylene Glycol 3350) 119 Gm Powder 17 Gm PO DAILY Levothyroxine Sodium 200 Mcg Tablet 200 Mcg PO DAILY06 Pantoprazole Sodium 40 Mg Tablet.dr 40 Mg PO DAILY I have reviewed the current psychotropics carefully including drug interactions. Risk benefit ratio favors no change other than as noted in my dictated progress note. Diagnosis: Problems: (1) Dementia in Alzheimer's disease with delusions (2) Impulse control disorder (3) Schizoaffective disorder, chronic condition with acute exacerbation (4) Borderline intellectual disability STEVEN AYALA MD Sep 14, 2017 20:47
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
[2017-09-15] MEDS: LEVOTHYROXINE 100 MCG TABLET PO SCH (05:49)
[2017-09-15 06:33] VITALS: BP 95/56
[2017-09-15] MEDS: QUEtiapine 50 MG TABLET. PO SCH ×3 (07:53→18:14)
[2017-09-15] MEDS: SERTRALINE 25 MG TABLET. PO SCH (07:53)
[2017-09-15] MEDS: busPIRone 5 MG TABLET. PO SCH ×3 (07:53→18:13)
[2017-09-15] MEDS: cloZAPine 100 MG TABLET PO SCH ×2 (07:53→19:11)
[2017-09-15] MEDS: OXYBUTYNIN CHLORIDE 5 MG TABLET PO SCH ×3 (07:54→19:11)
[2017-09-15] MEDS: traZODone 50 MG TABLET. PO SCH ×3 (07:54→18:14)
[2017-09-15] MEDS: VALPROATE ACID 250 MG/5 ML ORAL SOLUTION PO SCH ×4 (07:54→19:12)
[2017-09-15] MEDS: POLYETHYLENE GLYCOL 3350 17 GM PACKET. PO SCH (07:54)
[2017-09-15 15:46] VITALS: BP 98/51
[2017-09-15] MEDS: PHENYTOIN SODIUM EXTENDED 100 MG CAPSULE PO SCH (19:11)
[2017-09-15] MEDS: MIRTAZAPINE 7.5 MG TABLET. PO SCH (19:11)
[2017-09-15] MEDS: ATORVASTATIN CALCIUM 10 MG TABLET. PO SCH (19:11)
--- NOTE | 2017-09-15 20:25 | PDOC ---
Exam Note: Chad Note: Please also refer to the separate dictated note~for this date of service dictated separately.~Patient seen individually. Discussed the patient with Nursing staff reviewed the chart.~Reviewed interim history and current functioning. Reviewed vital signs,~Labs/ Radiology~and current medications noted below. Continue current treatment with the changes noted in the dictated addendum note Assessment: Vital Signs: Vital Signs Date Time Temp Pulse Resp B/P (MAP) Pulse Ox O2 Delivery O2 Flow Rate FiO2 09/15/17 15:46 98.4 72 16 98/51 (67) 98 09/15/17 06:33 Room Air I&O Intake and Output 09/15/17 07:00 Intake Total 1560 ml Balance 1560 ml Intake Oral 1560 ml Current Medications: Meds: Current Medications Valproic Acid (Depakene) 500 mg STAT PO Last administered on 07/30/17at 21:21; Start 07/30/17 at 20:49; Stop 08/01/17 at 15:23; Status DC Divalproex Sodium (Depakote Er) 1,000 mg QHS PO ; Start 07/31/17 at 21:00; Stop 07/31/17 at 21:00; Status DC Divalproex Sodium (Depakote Er) 500 mg DAILY PO ; Start 07/31/17 at 09:00; Stop 07/31/17 at 09:00; Status DC Lorazepam (Ativan) 1 mg PRN BID PRN PO ANXIETY / AGITATION Last administered on 09/05/17at 13:07; Start 07/30/17 at 23:00 Olanzapine (ZyPREXA) 10 mg DAILY PO ; Start 07/31/17 at 09:00; Stop 07/31/17 at 09:00; Status DC Olanzapine (ZyPREXA) 5 mg DAILY@1400 PO ; Start 07/31/17 at 14:00; Stop at 14:00; Status DC Risperidone (RisperDAL CONSTA) 25 mg Q2WKS IM ; Start 08/13/17 at 09:00; Status UNV Clozapine (Clozaril) 200 mg DAILY PO Last administered on 09/15/17at 07:53; Start 07/31/17 at 09:00 Clozapine (Clozaril) 500 mg QHS PO Last administered on 09/15/17at 19:11; Start 07/31/17 at 21:00 Olanzapine (ZyPREXA) 20 mg QHS PO Last administered on 07/31/17 20:28; Start 07/31/17 at 21:00; Stop 08/01/17 at 09:51; Status DC Atorvastatin Calcium (Lipitor) 10 mg QHS PO ; Start 07/31/17 at 21:00; Stop 03/10 at 21:00; Status DC Phenytoin Sodium (Dilantin) 300 mg QHS PO Last administered on 09/15/17 19:11 ; Start 07/31/17 at 21:00 Non-Formulary Medication (Sodium Fluoride (Prevident 5000)) 1 carlee BID DT ; Start 07/31/17 at 09:00; Stop 07/31/17 at 09:00; Status DC Oxybutynin Chloride (Ditropan) 5 mg [id number] PO Last administered on 09/15/17 19 :11; Start 07/31/17 at 09:00 Quetiapine Fumarate (SEROquel) 100 mg BID PO Last administered on 08/08/17 20: 51; Start 07/31/17 at 09:00; Stop 08/09/17 at 18:03; Status DC Acetaminophen (Tylenol) 500 mg PRN Q4HRS PRN PO PAIN Last administered on 20:16; Start 07/31/17 at 07:15 Levothyroxine Sodium (Synthroid) 200 mcg DAILY06 PO Last administered on at 05:49; Start 07/31/17 at 07:15 Fish Oil (Fish Oil) 1,000 mg DAILY PO Last administered on 07/31/17at 09:36; Start 07/31/17 at 09:00; Stop 08/01/17 at 09:51; Status DC Selenium Sulfide (Selsun) 1 carlee TWICEWEEKLY TP ; Start 07/31/17 at 07:30; Stop 07/31/17 at 14:29; Status DC Divalproex Sodium (Depakote Er) 1,000 mg QHS PO Last administered on 07/31/17 20:26; Start 07/31/17 at 21:00; Stop 08/01/17 at 18:29; Status DC Atorvastatin Calcium (Lipitor) 10 mg QHS PO Last administered on 09/15/17 19: 11; Start 07/31/17 at 21:00 Divalproex Sodium (Depakote Er) 500 mg DAILY PO Last administered on 08/01/17at 09:10; Start 07/31/17 at 09:00; Stop 08/01/17 at 09:51; Status DC Olanzapine (ZyPREXA) 10 mg DAILY PO Last administered on 08/01/17at 09:30; Start 07/31/17 at 09:00; Stop 08/01/17 at 09:51; Status DC Olanzapine (ZyPREXA) 5 mg DAILY@1400 PO Last administered on 07/31/17at 15:07; Start 07/31/17 at 14:00; Stop 08/01/17 at 09:51; Status DC Selenium Sulfide (Selsun) 1 carlee TWICEWEEKLY TP ; Start 07/31/17 at 14:29 Divalproex Sodium (Depakote Er) 750 mg DAILY PO ; Start 08/02/17 at 09:00; Stop 08/02/17 at 09:00; Status DC Divalproex Sodium (Depakote Sprinkles) 750 mg BID PO Last administered on at 09:21; Start 08/01/17 at 21:00; Stop 08/04/17 at 14:28; Status DC Al Hydroxide/Mg Hydroxide (Mylanta Plus Xs) 30 ml PRN AFTMEAL PRN PO DYSPEPSIA Last administered on 09/09/17at 00:29; Start 08/03/17 at 12:00 Magnesium Hydroxide (Milk Of Magnesia) 2,400 mg PRN DAILY PRN PO CONSTIPATION Last administered on 08/14/17 20:28; Start 08/03/17 at 17:00 Divalproex Sodium (Depakote Sprinkles) 1,000 mg BID PO Last administered on at 07:51; Start 08/04/17 at 21:00; Stop 08/07/17 at 18:35; Status DC Polyethylene Glycol (miraLAX) 17 gm DAILY PO Last administered on 09/15/17 07: 54; Start 08/05/17 at 09:00 Trazodone HCl (Desyrel) 100 mg QHS PO Last administered on 08/18/17at 19:34; Start 08/06/17 at 21:00; Stop 08/19/17 at 18:44; Status DC Trazodone HCl (Desyrel) 100 mg PRN QHS PRN PO INSOMNIA Last administered on at 21:05; Start 08/06/17 at 19:00; Stop 08/19/17 at 18:44; Status DC Divalproex Sodium (Depakote Sprinkles) 1,250 mg BID PO Last administered on at 20:51; Start 08/07/17 at 21:00; Stop 08/09/17 at 18:31; Status DC Quetiapine Fumarate (SEROquel) 50 mg BID PO Last administered on 08/19/17at 09: 19; Start 08/09/17 at 21:00; Stop 08/19/17 at 10:47; Status DC Divalproex Sodium (Depakote Sprinkles) 1,500 mg BID PO Last administered on at 08:25; Start 08/09/17 at 21:00; Stop 08/12/17 at 10:53; Status DC Trazodone HCl (Desyrel) 25 mg TID@0900,1300,1700 PO Last administered on at 17:10; Start 08/12/17 at 09:00; Stop 08/13/17 at 18:00; Status DC Divalproex Sodium (Depakote Sprinkles) 1,750 mg BID PO Last administered on at 09:32; Start 08/12/17 at 21:00; Stop 08/16/17 at 18:48; Status DC Trazodone HCl (Desyrel) 25 mg BID@1300,1700 PO Last administered on 09/15/17at 18:14; Start 08/14/17 at 13:00; Stop 09/15/17 at 18:46; Status DC Trazodone HCl (Desyrel) 50 mg DAILY PO Last administered on 09/15/17at 07:54; Start 08/14/17 at 09:00 Trazodone HCl (Desyrel) 50 mg 1X ONCE PO Last administered on 08/13/17at 18:29 ; Start 08/13/17 at 18:30; Stop 08/13/17 at 18:31; Status DC Sertraline HCl (Zoloft) 25 mg DAILY PO Last administered on 08/17/17 07:47; Start 08/15/17 at 09:00; Stop 08/17/17 at 11:00; Status DC Sertraline HCl (Zoloft) 50 mg DAILY PO Last administered on 09/15/17 07:53; Start 08/18/17 at 09:00 Divalproex Sodium (Depakote Sprinkles) 2,000 mg BID PO Last administered on 08/23at 09:05; Start 08/16/17 at 21:00; Stop 08/23/17 at 18:02; Status DC Buspirone HCl (Buspar) 5 mg TID@0900,1300,1700 PO Last administered on 18:13; Start 08/17/17 at 09:00 Quetiapine Fumarate (SEROquel) 50 mg TID@0900,1300,1700 PO Last administered on 09/15/17 18:14; Start 08/19/17 at 13:00 Mirtazapine (Remeron) 7.5 mg QHS PO Last administered on 09/10/17 19:41; Start 08/19/17 at 21:00; Stop 09/11/17 at 19:42; Status DC Hydroxyzine HCl (Atarax) 50 mg PRN QHS PRN PO INSOMNIA, MAY REPEAT X1 Last administered on 09/11/17at 03:09; Start 08/20/17 at 22:30 Divalproex Sodium (Depakote Sprinkles) 2,250 mg BID PO Last administered on 08/26 09:06; Start 08/23/17 at 21:00; Stop 08/26/17 at 10:43; Status DC Divalproex Sodium (Depakote Sprinkles) 2,500 mg BID PO Last administered on 08/28 19:42; Start 08/26/17 at 21:00; Stop 08/28/17 at 22:15; Status DC Iohexol (Omnipaque 300 Mg/ml) 75 ml 1X ONCE IV Last administered on 08/27/17at 22:59; Start 08/27/17 at 19:00; Stop 08/27/17 at 19:04; Status DC Divalproex Sodium (Depakote Sprinkles) 1,250 mg QID PO Last administered on 08/29at 17:13; Start 08/29/17 at 09:00; Stop 08/29/17 at 17:51; Status DC Divalproex Sodium (Depakote Sprinkles) 1,250 mg BID@0900,1200 PO ; Start at 09:00; Stop 08/30/17 at 09:11; Status DC Divalproex Sodium (Depakote Sprinkles) 1,375 mg BID@1700,2100 PO Last administered on 08/29/17at 19:48; Start 08/29/17 at 21:00; Stop 08/30/17 at 09:11; Status DC Valproic Acid (Depakene) 1,375 mg BID@1700,2100 PO Last administered on at 19:12; Start 08/30/17 at 17:00 Valproic Acid (Depakene) 1,250 mg BID@0900,1200 PO Last administered on at 11:59; Start 08/30/17 at 09:15 Multi-Ingredient Ointment (Analgesic [place]) 1 carlee PRN QID PRN TP MUSCLE PAIN Last administered on 09/01/17at 19:35; Start 09/01/17 at 19:15 Mirtazapine (Remeron) 15 mg QHS PO Last administered on 09/15/17at 19:11; Start 09/11/17 at 21:00 Trazodone HCl (Desyrel) 50 mg PRN QHS PRN PO INSOMNIA, MAY REPEAT X1 Last administered on 09/11/17at 19:58; Start 09/11/17 at 19:45; Stop 09/15/17 at 18:46 ; Status DC Trazodone HCl (Desyrel) 25 mg TID@0900,1300,1700 PO ; Start 09/16/17 at 09:00 Active Scripts Active Reported Ibuprofen 400 Mg Tablet 400 Mg PO PRN Q4HRS PRN MDD 1200mg/24hrs Lorazepam 2 Mg/1 Ml Vial 1 Mg IM BID PRN Abilify Maintena (Aripiprazole) 400 Mg Suser.vial 400 Mg IM Q4WK Next dose due 4/5/18 Paroxetine Hcl 20 Mg Tablet 10 Mg PO DAILY Abilify (Aripiprazole) 5 Mg Tablet 5 Mg PO DAILY Fenofibrate 160 Mg Tablet 160 Mg PO QHS Olanzapine 5 Mg Tablet 5 Mg PO DAILY@1400 5mg PO daily at 14:00 Methylphenidate Hcl 10 Mg Tablet 10 Mg PO BID@0900,1300 Seroquel (Quetiapine Fumarate) 100 Mg Tablet 100 Mg PO BID Prevident 5000 (Sodium Fluoride) 100 Ml Gel..ml. 1 Carlee DT BID Selenium Sulfide 180 Ml Shampoo 1 Carlee TP TWICE WEEKLY Lorazepam 1 Mg Tablet 1 Mg PO PRN BID PRN Acetaminophen 500 Mg Tablet 500 Mg PO PRN Q4HRS PRN Risperdal Consta (Risperidone Microspheres) 25 Mg/2 Ml Disp.syrin 25 Mg IM Q2WKS Phenytoin 125 Mg/5 Ml Oral.susp 300 Mg PO QHS Zyprexa (Olanzapine) 20 Mg Tablet 20 Mg PO QHS Atorvastatin Calcium 10 Mg Tablet 10 Mg PO QHS Zyprexa (Olanzapine) 5 Mg Tablet 5 Mg PO DAILY@1400 Clozapine 200 Mg Tablet 500 Mg PO QHS Clozapine 200 Mg Tablet 200 Mg PO DAILY Detrol La (Tolterodine Tartrate) 2 Mg Cap.er.24h 2 Mg PO BID Depakote Er (Divalproex Sodium) 500 Mg Tab.er.24h 500 Mg PO DAILY Depakote Er (Divalproex Sodium) 500 Mg Tab.er.24h 1,000 Mg PO QHS [place] 3 1,000 Mg Softgel ([place]-3 Fatty Acids/Fish Oil) 1 Each Capsule 1,000 Mg PO DAILY Thera-M Tablet (Multivits,Ca,Minerals/Iron/Fa) 1 Each Tablet 1 Tab PO DAILY Vitamin D3 (Cholecalciferol (Vitamin D3)) 1,000 Unit Tablet 2,000 Unit PO DAILY Olanzapine 10 Mg Tablet 10 Mg PO DAILY Miralax (Polyethylene Glycol 3350) 119 Gm Powder 17 Gm PO DAILY Levothyroxine Sodium 200 Mcg Tablet 200 Mcg PO DAILY06 Pantoprazole Sodium 40 Mg Tablet.dr 40 Mg PO DAILY I have reviewed the current psychotropics carefully including drug interactions. Risk benefit ratio favors no change other than as noted in my dictated progress note. Diagnosis: Problems: (1) Dementia in Alzheimer's disease with delusions (2) Impulse control disorder (3) Schizoaffective disorder, chronic condition with acute exacerbation (4) Borderline intellectual disability LUCY,MAN M MD Sep 15, 2017 20:25
--- NOTE | 2017-09-15 22:07 | PN ---
DATE: 09/14/2017 PSYCHIATRIC PROGRESS NOTE This is a late entry 09/14/2017 covers elements not covered in my initial note 09/14/2017. SUBJECTIVE: I met with the patient in the evening. The patient slept 9-3/4 hours previous evening. He has been little drowsy during the day. Otherwise, appropriate, less hyperverbal. REVIEW OF SYSTEMS: No CV, , pulmonary, eye, ENT system symptoms on review. He has had no further emesis. MENTAL STATUS EXAM: Oriented to himself and situation. Speech is coherent, less pressured. Abstraction fair, computation impaired, language function intact, attention span short. Mood and affect less labile. LABORATORY DATA: Reviewed. IMPRESSION: Unchanged from initial note. PLAN: Continue psychotropics mentioned in my initial note. MAN Suleman AYALA MD DR: ADALBERTO/garry JOB#: [id number] / [id number]
[2017-09-16] MEDS: LEVOTHYROXINE 100 MCG TABLET PO SCH (05:22)
[2017-09-16 06:14] VITALS: BP 110/65
[2017-09-16] MEDS: POLYETHYLENE GLYCOL 3350 17 GM PACKET. PO SCH (09:25)
[2017-09-16] MEDS: QUEtiapine 50 MG TABLET. PO SCH ×3 (09:26→17:34)
[2017-09-16] MEDS: VALPROATE ACID 250 MG/5 ML ORAL SOLUTION PO SCH ×4 (09:26→19:10)
[2017-09-16] MEDS: OXYBUTYNIN CHLORIDE 5 MG TABLET PO SCH ×3 (09:27→19:11)
[2017-09-16] MEDS: SERTRALINE 25 MG TABLET. PO SCH (09:27)
[2017-09-16] MEDS: busPIRone 5 MG TABLET. PO SCH ×3 (09:27→17:34)
[2017-09-16] MEDS: cloZAPine 100 MG TABLET PO SCH ×2 (09:27→19:10)
[2017-09-16] MEDS: traZODone 50 MG TABLET. PO SCH ×5 (09:28→17:35)
[2017-09-16 16:21] VITALS: BP 100/56
[2017-09-16] MEDS: ATORVASTATIN CALCIUM 10 MG TABLET. PO SCH (19:11)
[2017-09-16] MEDS: PHENYTOIN SODIUM EXTENDED 100 MG CAPSULE PO SCH (19:11)
[2017-09-16] MEDS: MIRTAZAPINE 7.5 MG TABLET. PO SCH (19:11)
--- NOTE | 2017-09-16 21:09 | PDOC ---
Exam Note: Chad Note: Please also refer to the separate dictated note~for this date of service dictated separately.~Patient seen individually. Discussed the patient with Nursing staff reviewed the chart.~Reviewed interim history and current functioning. Reviewed vital signs,~Labs/ Radiology~and current medications noted below. Continue current treatment with the changes noted in the dictated addendum note Assessment: Vital Signs: Vital Signs Date Time Temp Pulse Resp B/P (MAP) Pulse Ox O2 Delivery O2 Flow Rate FiO2 09/16/17 16:21 97.1 67 17 100/56 (71) 100 09/15/17 06:33 Room Air I&O Intake and Output 09/16/17 07:00 Intake Total 1720 ml Balance 1720 ml Intake Oral 1720 ml # Voids 1 Current Medications: Meds: Current Medications Valproic Acid (Depakene) 500 mg STAT PO Last administered on 07/30/17at 21:21; Start 07/30/17 at 20:49; Stop 08/01/17 at 15:23; Status DC Divalproex Sodium (Depakote Er) 1,000 mg QHS PO ; Start 07/31/17 at 21:00; Stop 07/31/17 at 21:00; Status DC Divalproex Sodium (Depakote Er) 500 mg DAILY PO ; Start 07/31/17 at 09:00; Stop 07/31/17 at 09:00; Status DC Lorazepam (Ativan) 1 mg PRN BID PRN PO ANXIETY / AGITATION Last administered on 09/05/17at 13:07; Start 07/30/17 at 23:00 Olanzapine (ZyPREXA) 10 mg DAILY PO ; Start 07/31/17 at 09:00; Stop 07/31/17 at 09:00; Status DC Olanzapine (ZyPREXA) 5 mg DAILY@1400 PO ; Start 07/31/17 at 14:00; Stop at 14:00; Status DC Risperidone (RisperDAL CONSTA) 25 mg Q2WKS IM ; Start 08/13/17 at 09:00; Status UNV Clozapine (Clozaril) 200 mg DAILY PO Last administered on 09/16/17at 09:27; Start 07/31/17 at 09:00 Clozapine (Clozaril) 500 mg QHS PO Last administered on 09/16/17at 19:10; Start 07/31/17 at 21:00 Olanzapine (ZyPREXA) 20 mg QHS PO Last administered on 07/31/17at 20:28; Start 07/31/17 at 21:00; Stop 08/01/17 at 09:51; Status DC Atorvastatin Calcium (Lipitor) 10 mg QHS PO ; Start 07/31/17 at 21:00; Stop 03/10 at 21:00; Status DC Phenytoin Sodium (Dilantin) 300 mg QHS PO Last administered on 09/16/17at 19:11 ; Start 07/31/17 at 21:00 Non-Formulary Medication (Sodium Fluoride (Prevident 5000)) 1 carlee BID DT ; Start 07/31/17 at 09:00; Stop 07/31/17 at 09:00; Status DC Oxybutynin Chloride (Ditropan) 5 mg [id number] PO Last administered on 09/16/17at 19 :11; Start 07/31/17 at 09:00 Quetiapine Fumarate (SEROquel) 100 mg BID PO Last administered on 08/08/17at 20: 51; Start 07/31/17 at 09:00; Stop 08/09/17 at 18:03; Status DC Acetaminophen (Tylenol) 500 mg PRN Q4HRS PRN PO PAIN Last administered on at 20:16; Start 07/31/17 at 07:15 Levothyroxine Sodium (Synthroid) 200 mcg DAILY06 PO Last administered on at 05:22; Start 07/31/17 at 07:15 Fish Oil (Fish Oil) 1,000 mg DAILY PO Last administered on 07/31/17at 09:36; Start 07/31/17 at 09:00; Stop 08/01/17 at 09:51; Status DC Selenium Sulfide (Selsun) 1 carlee TWICEWEEKLY TP ; Start 07/31/17 at 07:30; Stop 07/31/17 at 14:29; Status DC Divalproex Sodium (Depakote Er) 1,000 mg QHS PO Last administered on 07/31/17at 20:26; Start 07/31/17 at 21:00; Stop 08/01/17 at 18:29; Status DC Atorvastatin Calcium (Lipitor) 10 mg QHS PO Last administered on 09/16/17at 19: 11; Start 07/31/17 at 21:00 Divalproex Sodium (Depakote Er) 500 mg DAILY PO Last administered on 08/01/17at 09:10; Start 07/31/17 at 09:00; Stop 08/01/17 at 09:51; Status DC Olanzapine (ZyPREXA) 10 mg DAILY PO Last administered on 08/01/17at 09:30; Start 07/31/17 at 09:00; Stop 08/01/17 at 09:51; Status DC Olanzapine (ZyPREXA) 5 mg DAILY@1400 PO Last administered on 07/31/17at 15:07; Start 07/31/17 at 14:00; Stop 08/01/17 at 09:51; Status DC Selenium Sulfide (Selsun) 1 carlee TWICEWEEKLY TP ; Start 07/31/17 at 14:29 Divalproex Sodium (Depakote Er) 750 mg DAILY PO ; Start 08/02/17 at 09:00; Stop 08/02/17 at 09:00; Status DC Divalproex Sodium (Depakote Sprinkles) 750 mg BID PO Last administered on at 09:21; Start 08/01/17 at 21:00; Stop 08/04/17 at 14:28; Status DC Al Hydroxide/Mg Hydroxide (Mylanta Plus Xs) 30 ml PRN AFTMEAL PRN PO DYSPEPSIA Last administered on 09/09/17at 00:29; Start 08/03/17 at 12:00 Magnesium Hydroxide (Milk Of Magnesia) 2,400 mg PRN DAILY PRN PO CONSTIPATION Last administered on 08/14/17at 20:28; Start 08/03/17 at 17:00 Divalproex Sodium (Depakote Sprinkles) 1,000 mg BID PO Last administered on 07:51; Start 08/04/17 at 21:00; Stop 08/07/17 at 18:35; Status DC Polyethylene Glycol (miraLAX) 17 gm DAILY PO Last administered on 09/16/17at 09: 25; Start 08/05/17 at 09:00 Trazodone HCl (Desyrel) 100 mg QHS PO Last administered on 08/18/17at 19:34; Start 08/06/17 at 21:00; Stop 08/19/17 at 18:44; Status DC Trazodone HCl (Desyrel) 100 mg PRN QHS PRN PO INSOMNIA Last administered on at 21:05; Start 08/06/17 at 19:00; Stop 08/19/17 at 18:44; Status DC Divalproex Sodium (Depakote Sprinkles) 1,250 mg BID PO Last administered on at 20:51; Start 08/07/17 at 21:00; Stop 08/09/17 at 18:31; Status DC Quetiapine Fumarate (SEROquel) 50 mg BID PO Last administered on 08/19/17at 09: 19; Start 08/09/17 at 21:00; Stop 08/19/17 at 10:47; Status DC Divalproex Sodium (Depakote Sprinkles) 1,500 mg BID PO Last administered on at 08:25; Start 08/09/17 at 21:00; Stop 08/12/17 at 10:53; Status DC Trazodone HCl (Desyrel) 25 mg TID@0900,1300,1700 PO Last administered on at 17:10; Start 08/12/17 at 09:00; Stop 08/13/17 at 18:00; Status DC Divalproex Sodium (Depakote Sprinkles) 1,750 mg BID PO Last administered on at 09:32; Start 08/12/17 at 21:00; Stop 08/16/17 at 18:48; Status DC Trazodone HCl (Desyrel) 25 mg BID@1300,1700 PO Last administered on 09/15/17at 18:14; Start 08/14/17 at 13:00; Stop 09/15/17 at 18:46; Status DC Trazodone HCl (Desyrel) 50 mg DAILY PO Last administered on 09/15/17at 07:54; Start 08/14/17 at 09:00; Stop 09/16/17 at 09:32; Status DC Trazodone HCl (Desyrel) 50 mg 1X ONCE PO Last administered on 08/13/17at 18:29 ; Start 08/13/17 at 18:30; Stop 08/13/17 at 18:31; Status DC Sertraline HCl (Zoloft) 25 mg DAILY PO Last administered on 08/17/17at 07:47; Start 08/15/17 at 09:00; Stop 08/17/17 at 11:00; Status DC Sertraline HCl (Zoloft) 50 mg DAILY PO Last administered on 09/16/17 09:27; Start 08/18/17 at 09:00 Divalproex Sodium (Depakote Sprinkles) 2,000 mg BID PO Last administered on 08/23at 09:05; Start 08/16/17 at 21:00; Stop 08/23/17 at 18:02; Status DC Buspirone HCl (Buspar) 5 mg TID@0900,1300,1700 PO Last administered on at 17:34; Start 08/17/17 at 09:00 Quetiapine Fumarate (SEROquel) 50 mg TID@0900,1300,1700 PO Last administered on 09/16/17at 17:34; Start 08/19/17 at 13:00 Mirtazapine (Remeron) 7.5 mg QHS PO Last administered on 09/10/17 19:41; Start 08/19/17 at 21:00; Stop 09/11/17 at 19:42; Status DC Hydroxyzine HCl (Atarax) 50 mg PRN QHS PRN PO INSOMNIA, MAY REPEAT X1 Last administered on 09/11/17at 03:09; Start 08/20/17 at 22:30 Divalproex Sodium (Depakote Sprinkles) 2,250 mg BID PO Last administered on 08/26 09:06; Start 08/23/17 at 21:00; Stop 08/26/17 at 10:43; Status DC Divalproex Sodium (Depakote Sprinkles) 2,500 mg BID PO Last administered on 08/28at 19:42; Start 08/26/17 at 21:00; Stop 08/28/17 at 22:15; Status DC Iohexol (Omnipaque 300 Mg/ml) 75 ml 1X ONCE IV Last administered on 08/27/17at 22:59; Start 08/27/17 at 19:00; Stop 08/27/17 at 19:04; Status DC Divalproex Sodium (Depakote Sprinkles) 1,250 mg QID PO Last administered on 08/29at 17:13; Start 08/29/17 at 09:00; Stop 08/29/17 at 17:51; Status DC Divalproex Sodium (Depakote Sprinkles) 1,250 mg BID@0900,1200 PO ; Start at 09:00; Stop 08/30/17 at 09:11; Status DC Divalproex Sodium (Depakote Sprinkles) 1,375 mg BID@1700,2100 PO Last administered on 08/29/17at 19:48; Start 08/29/17 at 21:00; Stop 08/30/17 at 09:11; Status DC Valproic Acid (Depakene) 1,375 mg BID@1700,2100 PO Last administered on at 19:10; Start 08/30/17 at 17:00 Valproic Acid (Depakene) 1,250 mg BID@0900,1200 PO Last administered on at 12:07; Start 08/30/17 at 09:15 Multi-Ingredient Ointment (Analgesic [place]) 1 carlee PRN QID PRN TP MUSCLE PAIN Last administered on 09/01/17at 19:35; Start 09/01/17 at 19:15 Mirtazapine (Remeron) 15 mg QHS PO Last administered on 09/16/17at 19:11; Start 09/11/17 at 21:00 Trazodone HCl (Desyrel) 50 mg PRN QHS PRN PO INSOMNIA, MAY REPEAT X1 Last administered on 09/11/17at 19:58; Start 09/11/17 at 19:45; Stop 09/15/17 at 18:46 ; Status DC Trazodone HCl (Desyrel) 25 mg TID@0900,1300,1700 PO Last administered on at 12:07; Start 09/16/17 at 09:00; Stop 09/16/17 at 12:21; Status DC Trazodone HCl (Desyrel) 12.5 mg TID@0900,1300,1700 PO Last administered on 4/26 /18at 17:35; Start 09/16/17 at 13:00 Active Scripts Active Reported Ibuprofen 400 Mg Tablet 400 Mg PO PRN Q4HRS PRN MDD 1200mg/24hrs Lorazepam 2 Mg/1 Ml Vial 1 Mg IM BID PRN Abilify Maintena (Aripiprazole) 400 Mg Suser.vial 400 Mg IM Q4WK Next dose due 08/26/17 Paroxetine Hcl 20 Mg Tablet 10 Mg PO DAILY Abilify (Aripiprazole) 5 Mg Tablet 5 Mg PO DAILY Fenofibrate 160 Mg Tablet 160 Mg PO QHS Olanzapine 5 Mg Tablet 5 Mg PO DAILY@1400 5mg PO daily at 14:00 Methylphenidate Hcl 10 Mg Tablet 10 Mg PO BID@0900,1300 Seroquel (Quetiapine Fumarate) 100 Mg Tablet 100 Mg PO BID Prevident 5000 (Sodium Fluoride) 100 Ml Gel..ml. 1 Carlee DT BID Selenium Sulfide 180 Ml Shampoo 1 Carlee TP TWICE WEEKLY Lorazepam 1 Mg Tablet 1 Mg PO PRN BID PRN Acetaminophen 500 Mg Tablet 500 Mg PO PRN Q4HRS PRN Risperdal Consta (Risperidone Microspheres) 25 Mg/2 Ml Disp.syrin 25 Mg IM Q2WKS Phenytoin 125 Mg/5 Ml Oral.susp 300 Mg PO QHS Zyprexa (Olanzapine) 20 Mg Tablet 20 Mg PO QHS Atorvastatin Calcium 10 Mg Tablet 10 Mg PO QHS Zyprexa (Olanzapine) 5 Mg Tablet 5 Mg PO DAILY@1400 Clozapine 200 Mg Tablet 500 Mg PO QHS Clozapine 200 Mg Tablet 200 Mg PO DAILY Detrol La (Tolterodine Tartrate) 2 Mg Cap.er.24h 2 Mg PO BID Depakote Er (Divalproex Sodium) 500 Mg Tab.er.24h 500 Mg PO DAILY Depakote Er (Divalproex Sodium) 500 Mg Tab.er.24h 1,000 Mg PO QHS [place] 3 1,000 Mg Softgel ([place]-3 Fatty Acids/Fish Oil) 1 Each Capsule 1,000 Mg PO DAILY Thera-M Tablet (Multivits,Ca,Minerals/Iron/Fa) 1 Each Tablet 1 Tab PO DAILY Vitamin D3 (Cholecalciferol (Vitamin D3)) 1,000 Unit Tablet 2,000 Unit PO DAILY Olanzapine 10 Mg Tablet 10 Mg PO DAILY Miralax (Polyethylene Glycol 3350) 119 Gm Powder 17 Gm PO DAILY Levothyroxine Sodium 200 Mcg Tablet 200 Mcg PO DAILY06 Pantoprazole Sodium 40 Mg Tablet. 40 Mg PO DAILY I have reviewed the current psychotropics carefully including drug interactions. Risk benefit ratio favors no change other than as noted in my dictated progress note. Diagnosis: Problems: (1) Dementia in Alzheimer's disease with delusions (2) Impulse control disorder (3) Schizoaffective disorder, chronic condition with acute exacerbation (4) Borderline intellectual disability STEVEN AYALA MD Sep 16, 2017 21:09
[2017-09-17] MEDS: POLYETHYLENE GLYCOL 3350 17 GM PACKET. PO SCH (07:41)
[2017-09-17] MEDS: traZODone 50 MG TABLET. PO SCH ×3 (07:41→17:20)
[2017-09-17] MEDS: SERTRALINE 25 MG TABLET. PO SCH (07:42)
[2017-09-17] MEDS: LEVOTHYROXINE 100 MCG TABLET PO SCH (07:42)
[2017-09-17] MEDS: busPIRone 5 MG TABLET. PO SCH ×3 (07:42→17:20)
[2017-09-17] MEDS: cloZAPine 100 MG TABLET PO SCH ×2 (07:42→19:53)
[2017-09-17] MEDS: QUEtiapine 50 MG TABLET. PO SCH ×3 (07:42→17:20)
[2017-09-17] MEDS: OXYBUTYNIN CHLORIDE 5 MG TABLET PO SCH ×3 (07:42→19:53)
[2017-09-17] MEDS: VALPROATE ACID 250 MG/5 ML ORAL SOLUTION PO SCH ×4 (07:43→19:52)
[2017-09-17 08:19] VITALS: BP 93/48
[2017-09-17 16:24] VITALS: BP 103/65
[2017-09-17] MEDS: PHENYTOIN SODIUM EXTENDED 100 MG CAPSULE PO SCH (19:53)
[2017-09-17] MEDS: MIRTAZAPINE 7.5 MG TABLET. PO SCH (19:53)
[2017-09-17] MEDS: ATORVASTATIN CALCIUM 10 MG TABLET. PO SCH (19:53)
--- NOTE | 2017-09-17 22:56 | PDOC ---
Exam Note: Chad Note: Please also refer to the separate dictated note~for this date of service dictated separately.~Patient seen individually. Discussed the patient with Nursing staff reviewed the chart.~Reviewed interim history and current functioning. Reviewed vital signs,~Labs/ Radiology~and current medications noted below. Continue current treatment with the changes noted in the dictated addendum note Assessment: Vital Signs: Vital Signs Date Time Temp Pulse Resp B/P (MAP) Pulse Ox O2 Delivery O2 Flow Rate FiO2 09/17/17 16:24 97.5 73 18 103/65 (78) 94 09/15/17 06:33 Room Air I&O Intake and Output 09/17/17 07:00 Intake Total 1440 ml Balance 1440 ml Intake Oral 1440 ml Current Medications: Meds: Current Medications Valproic Acid (Depakene) 500 mg STAT PO Last administered on 07/30/17at 21:21; Start 07/30/17 at 20:49; Stop 08/01/17 at 15:23; Status DC Divalproex Sodium (Depakote Er) 1,000 mg QHS PO ; Start 07/31/17 at 21:00; Stop 07/31/17 at 21:00; Status DC Divalproex Sodium (Depakote Er) 500 mg DAILY PO ; Start 07/31/17 at 09:00; Stop 07/31/17 at 09:00; Status DC Lorazepam (Ativan) 1 mg PRN BID PRN PO ANXIETY / AGITATION Last administered on 09/05/17at 13:07; Start 07/30/17 at 23:00 Olanzapine (ZyPREXA) 10 mg DAILY PO ; Start 07/31/17 at 09:00; Stop 07/31/17 at 09:00; Status DC Olanzapine (ZyPREXA) 5 mg DAILY@1400 PO ; Start 07/31/17 at 14:00; Stop at 14:00; Status DC Risperidone (RisperDAL CONSTA) 25 mg Q2WKS IM ; Start 08/13/17 at 09:00; Status UNV Clozapine (Clozaril) 200 mg DAILY PO Last administered on 09/17/17at 07:42; Start 07/31/17 at 09:00 Clozapine (Clozaril) 500 mg QHS PO Last administered on 09/17/17at 19:53; Start 07/31/17 at 21:00 Olanzapine (ZyPREXA) 20 mg QHS PO Last administered on 07/31/17 20:28; Start 07/31/17 at 21:00; Stop 08/01/17 at 09:51; Status DC Atorvastatin Calcium (Lipitor) 10 mg QHS PO ; Start 07/31/17 at 21:00; Stop 03/10 at 21:00; Status DC Phenytoin Sodium (Dilantin) 300 mg QHS PO Last administered on 09/17/17 19:53 ; Start 07/31/17 at 21:00 Non-Formulary Medication (Sodium Fluoride (Prevident 5000)) 1 carlee BID DT ; Start 07/31/17 at 09:00; Stop 07/31/17 at 09:00; Status DC Oxybutynin Chloride (Ditropan) 5 mg [id number] PO Last administered on 09/17/17 19 :53; Start 07/31/17 at 09:00 Quetiapine Fumarate (SEROquel) 100 mg BID PO Last administered on 08/08/17 20: 51; Start 07/31/17 at 09:00; Stop 08/09/17 at 18:03; Status DC Acetaminophen (Tylenol) 500 mg PRN Q4HRS PRN PO PAIN Last administered on 20:16; Start 07/31/17 at 07:15 Levothyroxine Sodium (Synthroid) 200 mcg DAILY06 PO Last administered on at 07:42; Start 07/31/17 at 07:15 Fish Oil (Fish Oil) 1,000 mg DAILY PO Last administered on 07/31/17at 09:36; Start 07/31/17 at 09:00; Stop 08/01/17 at 09:51; Status DC Selenium Sulfide (Selsun) 1 carlee TWICEWEEKLY TP ; Start 07/31/17 at 07:30; Stop 07/31/17 at 14:29; Status DC Divalproex Sodium (Depakote Er) 1,000 mg QHS PO Last administered on 07/31/17 20:26; Start 07/31/17 at 21:00; Stop 08/01/17 at 18:29; Status DC Atorvastatin Calcium (Lipitor) 10 mg QHS PO Last administered on 09/17/17 19: 53; Start 07/31/17 at 21:00 Divalproex Sodium (Depakote Er) 500 mg DAILY PO Last administered on 08/01/17at 09:10; Start 07/31/17 at 09:00; Stop 08/01/17 at 09:51; Status DC Olanzapine (ZyPREXA) 10 mg DAILY PO Last administered on 08/01/17at 09:30; Start 07/31/17 at 09:00; Stop 08/01/17 at 09:51; Status DC Olanzapine (ZyPREXA) 5 mg DAILY@1400 PO Last administered on 07/31/17at 15:07; Start 07/31/17 at 14:00; Stop 08/01/17 at 09:51; Status DC Selenium Sulfide (Selsun) 1 carlee TWICEWEEKLY TP ; Start 07/31/17 at 14:29 Divalproex Sodium (Depakote Er) 750 mg DAILY PO ; Start 08/02/17 at 09:00; Stop 08/02/17 at 09:00; Status DC Divalproex Sodium (Depakote Sprinkles) 750 mg BID PO Last administered on at 09:21; Start 08/01/17 at 21:00; Stop 08/04/17 at 14:28; Status DC Al Hydroxide/Mg Hydroxide (Mylanta Plus Xs) 30 ml PRN AFTMEAL PRN PO DYSPEPSIA Last administered on 09/09/17at 00:29; Start 08/03/17 at 12:00 Magnesium Hydroxide (Milk Of Magnesia) 2,400 mg PRN DAILY PRN PO CONSTIPATION Last administered on 08/14/17 20:28; Start 08/03/17 at 17:00 Divalproex Sodium (Depakote Sprinkles) 1,000 mg BID PO Last administered on at 07:51; Start 08/04/17 at 21:00; Stop 08/07/17 at 18:35; Status DC Polyethylene Glycol (miraLAX) 17 gm DAILY PO Last administered on 09/17/17at 07: 41; Start 08/05/17 at 09:00 Trazodone HCl (Desyrel) 100 mg QHS PO Last administered on 08/18/17at 19:34; Start 08/06/17 at 21:00; Stop 08/19/17 at 18:44; Status DC Trazodone HCl (Desyrel) 100 mg PRN QHS PRN PO INSOMNIA Last administered on at 21:05; Start 08/06/17 at 19:00; Stop 08/19/17 at 18:44; Status DC Divalproex Sodium (Depakote Sprinkles) 1,250 mg BID PO Last administered on at 20:51; Start 08/07/17 at 21:00; Stop 08/09/17 at 18:31; Status DC Quetiapine Fumarate (SEROquel) 50 mg BID PO Last administered on 08/19/17at 09: 19; Start 08/09/17 at 21:00; Stop 08/19/17 at 10:47; Status DC Divalproex Sodium (Depakote Sprinkles) 1,500 mg BID PO Last administered on at 08:25; Start 08/09/17 at 21:00; Stop 08/12/17 at 10:53; Status DC Trazodone HCl (Desyrel) 25 mg TID@0900,1300,1700 PO Last administered on at 17:10; Start 08/12/17 at 09:00; Stop 08/13/17 at 18:00; Status DC Divalproex Sodium (Depakote Sprinkles) 1,750 mg BID PO Last administered on at 09:32; Start 08/12/17 at 21:00; Stop 08/16/17 at 18:48; Status DC Trazodone HCl (Desyrel) 25 mg BID@1300,1700 PO Last administered on 09/15/17at 18:14; Start 08/14/17 at 13:00; Stop 09/15/17 at 18:46; Status DC Trazodone HCl (Desyrel) 50 mg DAILY PO Last administered on 09/15/17at 07:54; Start 08/14/17 at 09:00; Stop 09/16/17 at 09:32; Status DC Trazodone HCl (Desyrel) 50 mg 1X ONCE PO Last administered on 08/13/17at 18:29 ; Start 08/13/17 at 18:30; Stop 08/13/17 at 18:31; Status DC Sertraline HCl (Zoloft) 25 mg DAILY PO Last administered on 08/17/17at 07:47; Start 08/15/17 at 09:00; Stop 08/17/17 at 11:00; Status DC Sertraline HCl (Zoloft) 50 mg DAILY PO Last administered on 09/17/17at 07:42; Start 08/18/17 at 09:00 Divalproex Sodium (Depakote Sprinkles) 2,000 mg BID PO Last administered on 08/23at 09:05; Start 08/16/17 at 21:00; Stop 08/23/17 at 18:02; Status DC Buspirone HCl (Buspar) 5 mg TID@0900,1300,1700 PO Last administered on at 17:20; Start 08/17/17 at 09:00 Quetiapine Fumarate (SEROquel) 50 mg TID@0900,1300,1700 PO Last administered on 09/17/17 17:20; Start 08/19/17 at 13:00 Mirtazapine (Remeron) 7.5 mg QHS PO Last administered on 09/10/17 19:41; Start 08/19/17 at 21:00; Stop 09/11/17 at 19:42; Status DC Hydroxyzine HCl (Atarax) 50 mg PRN QHS PRN PO INSOMNIA, MAY REPEAT X1 Last administered on 09/11/17at 03:09; Start 08/20/17 at 22:30 Divalproex Sodium (Depakote Sprinkles) 2,250 mg BID PO Last administered on 08/26 09:06; Start 08/23/17 at 21:00; Stop 08/26/17 at 10:43; Status DC Divalproex Sodium (Depakote Sprinkles) 2,500 mg BID PO Last administered on 08/28at 19:42; Start 08/26/17 at 21:00; Stop 08/28/17 at 22:15; Status DC Iohexol (Omnipaque 300 Mg/ml) 75 ml 1X ONCE IV Last administered on 08/27/17at 22:59; Start 08/27/17 at 19:00; Stop 08/27/17 at 19:04; Status DC Divalproex Sodium (Depakote Sprinkles) 1,250 mg QID PO Last administered on 08/29at 17:13; Start 08/29/17 at 09:00; Stop 08/29/17 at 17:51; Status DC Divalproex Sodium (Depakote Sprinkles) 1,250 mg BID@0900,1200 PO ; Start at 09:00; Stop 08/30/17 at 09:11; Status DC Divalproex Sodium (Depakote Sprinkles) 1,375 mg BID@1700,2100 PO Last administered on 08/29/17at 19:48; Start 08/29/17 at 21:00; Stop 08/30/17 at 09:11; Status DC Valproic Acid (Depakene) 1,375 mg BID@1700,2100 PO Last administered on at 19:52; Start 08/30/17 at 17:00 Valproic Acid (Depakene) 1,250 mg BID@0900,1200 PO Last administered on at 12:09; Start 08/30/17 at 09:15 Multi-Ingredient Ointment (Analgesic [place]) 1 carlee PRN QID PRN TP MUSCLE PAIN Last administered on 09/01/17at 19:35; Start 09/01/17 at 19:15 Mirtazapine (Remeron) 15 mg QHS PO Last administered on 09/17/17at 19:53; Start 09/11/17 at 21:00 Trazodone HCl (Desyrel) 50 mg PRN QHS PRN PO INSOMNIA, MAY REPEAT X1 Last administered on 09/11/17at 19:58; Start 09/11/17 at 19:45; Stop 09/15/17 at 18:46 ; Status DC Trazodone HCl (Desyrel) 25 mg TID@0900,1300,1700 PO Last administered on at 12:07; Start 09/16/17 at 09:00; Stop 09/16/17 at 12:21; Status DC Trazodone HCl (Desyrel) 12.5 mg TID@0900,1300,1700 PO Last administered on 09/17at 17:20; Start 09/16/17 at 13:00; Stop 09/17/17 at 19:19; Status DC Trazodone HCl (Desyrel) 12.5 mg BID@0900,1700 PO ; Start 09/18/17 at 09:00 Active Scripts Active Reported Ibuprofen 400 Mg Tablet 400 Mg PO PRN Q4HRS PRN MDD 1200mg/24hrs Lorazepam 2 Mg/1 Ml Vial 1 Mg IM BID PRN Abilify Maintena (Aripiprazole) 400 Mg Suser.vial 400 Mg IM Q4WK Next dose due 08/26/17 Paroxetine Hcl 20 Mg Tablet 10 Mg PO DAILY Abilify (Aripiprazole) 5 Mg Tablet 5 Mg PO DAILY Fenofibrate 160 Mg Tablet 160 Mg PO QHS Olanzapine 5 Mg Tablet 5 Mg PO DAILY@1400 5mg PO daily at 14:00 Methylphenidate Hcl 10 Mg Tablet 10 Mg PO BID@0900,1300 Seroquel (Quetiapine Fumarate) 100 Mg Tablet 100 Mg PO BID Prevident 5000 (Sodium Fluoride) 100 Ml Gel..ml. 1 Carlee DT BID Selenium Sulfide 180 Ml Shampoo 1 Carlee TP TWICE WEEKLY Lorazepam 1 Mg Tablet 1 Mg PO PRN BID PRN Acetaminophen 500 Mg Tablet 500 Mg PO PRN Q4HRS PRN Risperdal Consta (Risperidone Microspheres) 25 Mg/2 Ml Disp.syrin 25 Mg IM Q2WKS Phenytoin 125 Mg/5 Ml Oral.susp 300 Mg PO QHS Zyprexa (Olanzapine) 20 Mg Tablet 20 Mg PO QHS Atorvastatin Calcium 10 Mg Tablet 10 Mg PO QHS Zyprexa (Olanzapine) 5 Mg Tablet 5 Mg PO DAILY@1400 Clozapine 200 Mg Tablet 500 Mg PO QHS Clozapine 200 Mg Tablet 200 Mg PO DAILY Detrol La (Tolterodine Tartrate) 2 Mg Cap.er.24h 2 Mg PO BID Depakote Er (Divalproex Sodium) 500 Mg Tab.er.24h 500 Mg PO DAILY Depakote Er (Divalproex Sodium) 500 Mg Tab.er.24h 1,000 Mg PO QHS [place] 3 1,000 Mg Softgel ([place]-3 Fatty Acids/Fish Oil) 1 Each Capsule 1,000 Mg PO DAILY Thera-M Tablet (Multivits,Ca,Minerals/Iron/Fa) 1 Each Tablet 1 Tab PO DAILY Vitamin D3 (Cholecalciferol (Vitamin D3)) 1,000 Unit Tablet 2,000 Unit PO DAILY Olanzapine 10 Mg Tablet 10 Mg PO DAILY Miralax (Polyethylene Glycol 3350) 119 Gm Powder 17 Gm PO DAILY Levothyroxine Sodium 200 Mcg Tablet 200 Mcg PO DAILY06 Pantoprazole Sodium 40 Mg Tablet.dr 40 Mg PO DAILY I have reviewed the current psychotropics carefully including drug interactions. Risk benefit ratio favors no change other than as noted in my dictated progress note. Diagnosis: Problems: (1) Dementia in Alzheimer's disease with delusions (2) Impulse control disorder (3) Schizoaffective disorder, chronic condition with acute exacerbation (4) Borderline intellectual disability STEVEN AYALA MD Sep 17, 2017 22:56
[2017-09-18 06:27] VITALS: BP 113/57
[2017-09-18] MEDS: LEVOTHYROXINE 100 MCG TABLET PO SCH (06:30)
[2017-09-18] MEDS: busPIRone 5 MG TABLET. PO SCH ×3 (07:46→17:19)
[2017-09-18] MEDS: POLYETHYLENE GLYCOL 3350 17 GM PACKET. PO SCH (07:46)
[2017-09-18] MEDS: OXYBUTYNIN CHLORIDE 5 MG TABLET PO SCH ×3 (07:46→19:47)
[2017-09-18] MEDS: SERTRALINE 25 MG TABLET. PO SCH (07:46)
[2017-09-18] MEDS: cloZAPine 100 MG TABLET PO SCH ×2 (07:46→19:47)
[2017-09-18] MEDS: QUEtiapine 50 MG TABLET. PO SCH ×3 (07:46→17:19)
[2017-09-18] MEDS: VALPROATE ACID 250 MG/5 ML ORAL SOLUTION PO SCH ×4 (07:47→19:47)
[2017-09-18] MEDS ORDERED: traZODone 50 MG TABLET. PO SCH (09:00)
--- NOTE | 2017-09-18 11:08 | PN ---
DATE: 09/15/2017 PSYCHIATRIC PROGRESS NOTE This is a late entry 09/15/2017, covers elements not covered in my initial note 09/15/2017. SUBJECTIVE: I met with the patient in the evening. He was irritable in the morning, slept 10 hours, quite sedated, drowsy during the day. REVIEW OF SYSTEMS: No CV, , pulmonary, eye system symptoms on review. Less psychotic. MENTAL STATUS EXAM: Oriented to himself and situation. Speech coherent, less pressured. Abstraction fair, computation impaired, language function intact, attention span short. Mood and affect somewhat anxious, labile, but better than before. LABORATORY DATA: Reviewed. IMPRESSION: Unchanged from initial note. PLAN: Due to the daytime sedation reduce the trazodone from 50 mg at 9:00 a.m. down to 25 mg at 9:00 a.m. Continue 25 mg at 1300 and 1700 and reduce it further gradually. Rest unchanged. MAN Suleman AYALA MD DR: ADALBERTO/garry JOB#: [id number] / [id number]
[2017-09-18 17:22] VITALS: BP 90/45
[2017-09-18] MEDS: PHENYTOIN SODIUM EXTENDED 100 MG CAPSULE PO SCH (19:47)
[2017-09-18] MEDS: MIRTAZAPINE 7.5 MG TABLET. PO SCH (19:47)
[2017-09-18] MEDS: ATORVASTATIN CALCIUM 10 MG TABLET. PO SCH (19:47)
--- NOTE | 2017-09-18 21:37 | PN ---
DATE: 09/16/2017 This late entry 09/16/2017 covers elements not covered in my initial note 09/16/2017. I met with the patient in the evenings staffed at treatment team meeting with entire team in the morning. Reviewed the patient's history at length, discharge plans, placement considerations. The patient is sleeping about 10 hours and we are gradually reducing the trazodone as a consequence of this during the day. He has had 1 episode of vomiting after lunch and no vomiting in the morning. REVIEW OF SYSTEMS: No CV, , pulmonary, eye, ENT system symptoms on review. MENTAL STATUS EXAM: Oriented to himself and situation. Speech coherent, still somewhat pressured, much less than before. Abstraction fair, computation impaired, language function intact. Overall, functioning consistent with his intellectual disability. LABORATORY DATA: Reviewed. IMPRESSION: Unchanged from initial note. PLAN: Reduce the trazodone 25 mg t.i.d. to 12.5 mg 3 times a day. Rest unchanged. MAN Suleman AYALA MD DR: ADALBERTO/garry JOB#: [id number] / [id number]
--- NOTE | 2017-09-18 22:26 | PDOC ---
Exam Note: Chad Note: Please also refer to the separate dictated note~for this date of service dictated separately.~Patient seen individually. Discussed the patient with Nursing staff reviewed the chart.~Reviewed interim history and current functioning. Reviewed vital signs,~Labs/ Radiology~and current medications noted below. Continue current treatment with the changes noted in the dictated addendum note Assessment: Vital Signs: Vital Signs Date Time Temp Pulse Resp B/P (MAP) Pulse Ox O2 Delivery O2 Flow Rate FiO2 09/18/17 17:22 97.6 66 18 90/45 (60) 99 09/15/17 06:33 Room Air I&O Intake and Output 09/18/17 07:00 Intake Total 1800 ml Balance 1800 ml Intake Oral 1800 ml # Bowel Movements 1 Current Medications: Meds: Current Medications Valproic Acid (Depakene) 500 mg STAT PO Last administered on 07/30/17at 21:21; Start 07/30/17 at 20:49; Stop 08/01/17 at 15:23; Status DC Divalproex Sodium (Depakote Er) 1,000 mg QHS PO ; Start 07/31/17 at 21:00; Stop 07/31/17 at 21:00; Status DC Divalproex Sodium (Depakote Er) 500 mg DAILY PO ; Start 07/31/17 at 09:00; Stop 07/31/17 at 09:00; Status DC Lorazepam (Ativan) 1 mg PRN BID PRN PO ANXIETY / AGITATION Last administered on 09/05/17at 13:07; Start 07/30/17 at 23:00 Olanzapine (ZyPREXA) 10 mg DAILY PO ; Start 07/31/17 at 09:00; Stop 07/31/17 at 09:00; Status DC Olanzapine (ZyPREXA) 5 mg DAILY@1400 PO ; Start 07/31/17 at 14:00; Stop at 14:00; Status DC Risperidone (RisperDAL CONSTA) 25 mg Q2WKS IM ; Start 08/13/17 at 09:00; Status UNV Clozapine (Clozaril) 200 mg DAILY PO Last administered on 09/18/17at 07:46; Start 07/31/17 at 09:00 Clozapine (Clozaril) 500 mg QHS PO Last administered on 09/18/17at 19:47; Start 07/31/17 at 21:00 Olanzapine (ZyPREXA) 20 mg QHS PO Last administered on 07/31/17 20:28; Start 07/31/17 at 21:00; Stop 08/01/17 at 09:51; Status DC Atorvastatin Calcium (Lipitor) 10 mg QHS PO ; Start 07/31/17 at 21:00; Stop 03/10 at 21:00; Status DC Phenytoin Sodium (Dilantin) 300 mg QHS PO Last administered on 09/18/17 19:47 ; Start 07/31/17 at 21:00 Non-Formulary Medication (Sodium Fluoride (Prevident 5000)) 1 carlee BID DT ; Start 07/31/17 at 09:00; Stop 07/31/17 at 09:00; Status DC Oxybutynin Chloride (Ditropan) 5 mg [id number] PO Last administered on 09/18/17 19 :47; Start 07/31/17 at 09:00 Quetiapine Fumarate (SEROquel) 100 mg BID PO Last administered on 08/08/17 20: 51; Start 07/31/17 at 09:00; Stop 08/09/17 at 18:03; Status DC Acetaminophen (Tylenol) 500 mg PRN Q4HRS PRN PO PAIN Last administered on 20:16; Start 07/31/17 at 07:15 Levothyroxine Sodium (Synthroid) 200 mcg DAILY06 PO Last administered on 06:30; Start 07/31/17 at 07:15 Fish Oil (Fish Oil) 1,000 mg DAILY PO Last administered on 07/31/17at 09:36; Start 07/31/17 at 09:00; Stop 08/01/17 at 09:51; Status DC Selenium Sulfide (Selsun) 1 carlee TWICEWEEKLY TP ; Start 07/31/17 at 07:30; Stop 07/31/17 at 14:29; Status DC Divalproex Sodium (Depakote Er) 1,000 mg QHS PO Last administered on 07/31/17 20:26; Start 07/31/17 at 21:00; Stop 08/01/17 at 18:29; Status DC Atorvastatin Calcium (Lipitor) 10 mg QHS PO Last administered on 09/18/17 19: 47; Start 07/31/17 at 21:00 Divalproex Sodium (Depakote Er) 500 mg DAILY PO Last administered on 08/01/17at 09:10; Start 07/31/17 at 09:00; Stop 08/01/17 at 09:51; Status DC Olanzapine (ZyPREXA) 10 mg DAILY PO Last administered on 08/01/17at 09:30; Start 07/31/17 at 09:00; Stop 08/01/17 at 09:51; Status DC Olanzapine (ZyPREXA) 5 mg DAILY@1400 PO Last administered on 07/31/17at 15:07; Start 07/31/17 at 14:00; Stop 08/01/17 at 09:51; Status DC Selenium Sulfide (Selsun) 1 carlee TWICEWEEKLY TP ; Start 07/31/17 at 14:29 Divalproex Sodium (Depakote Er) 750 mg DAILY PO ; Start 08/02/17 at 09:00; Stop 08/02/17 at 09:00; Status DC Divalproex Sodium (Depakote Sprinkles) 750 mg BID PO Last administered on at 09:21; Start 08/01/17 at 21:00; Stop 08/04/17 at 14:28; Status DC Al Hydroxide/Mg Hydroxide (Mylanta Plus Xs) 30 ml PRN AFTMEAL PRN PO DYSPEPSIA Last administered on 09/09/17at 00:29; Start 08/03/17 at 12:00 Magnesium Hydroxide (Milk Of Magnesia) 2,400 mg PRN DAILY PRN PO CONSTIPATION Last administered on 08/14/17at 20:28; Start 08/03/17 at 17:00 Divalproex Sodium (Depakote Sprinkles) 1,000 mg BID PO Last administered on 07:51; Start 08/04/17 at 21:00; Stop 08/07/17 at 18:35; Status DC Polyethylene Glycol (miraLAX) 17 gm DAILY PO Last administered on 09/18/17 07: 46; Start 08/05/17 at 09:00 Trazodone HCl (Desyrel) 100 mg QHS PO Last administered on 08/18/17at 19:34; Start 08/06/17 at 21:00; Stop 08/19/17 at 18:44; Status DC Trazodone HCl (Desyrel) 100 mg PRN QHS PRN PO INSOMNIA Last administered on at 21:05; Start 08/06/17 at 19:00; Stop 08/19/17 at 18:44; Status DC Divalproex Sodium (Depakote Sprinkles) 1,250 mg BID PO Last administered on at 20:51; Start 08/07/17 at 21:00; Stop 08/09/17 at 18:31; Status DC Quetiapine Fumarate (SEROquel) 50 mg BID PO Last administered on 08/19/17at 09: 19; Start 08/09/17 at 21:00; Stop 08/19/17 at 10:47; Status DC Divalproex Sodium (Depakote Sprinkles) 1,500 mg BID PO Last administered on at 08:25; Start 08/09/17 at 21:00; Stop 08/12/17 at 10:53; Status DC Trazodone HCl (Desyrel) 25 mg TID@0900,1300,1700 PO Last administered on at 17:10; Start 08/12/17 at 09:00; Stop 08/13/17 at 18:00; Status DC Divalproex Sodium (Depakote Sprinkles) 1,750 mg BID PO Last administered on at 09:32; Start 08/12/17 at 21:00; Stop 08/16/17 at 18:48; Status DC Trazodone HCl (Desyrel) 25 mg BID@1300,1700 PO Last administered on 09/15/17at 18:14; Start 08/14/17 at 13:00; Stop 09/15/17 at 18:46; Status DC Trazodone HCl (Desyrel) 50 mg DAILY PO Last administered on 09/15/17at 07:54; Start 08/14/17 at 09:00; Stop 09/16/17 at 09:32; Status DC Trazodone HCl (Desyrel) 50 mg 1X ONCE PO Last administered on 08/13/17at 18:29 ; Start 08/13/17 at 18:30; Stop 08/13/17 at 18:31; Status DC Sertraline HCl (Zoloft) 25 mg DAILY PO Last administered on 08/17/17at 07:47; Start 08/15/17 at 09:00; Stop 08/17/17 at 11:00; Status DC Sertraline HCl (Zoloft) 50 mg DAILY PO Last administered on 09/18/17at 07:46; Start 08/18/17 at 09:00 Divalproex Sodium (Depakote Sprinkles) 2,000 mg BID PO Last administered on 08/23at 09:05; Start 08/16/17 at 21:00; Stop 08/23/17 at 18:02; Status DC Buspirone HCl (Buspar) 5 mg TID@0900,1300,1700 PO Last administered on at 17:19; Start 08/17/17 at 09:00 Quetiapine Fumarate (SEROquel) 50 mg TID@0900,1300,1700 PO Last administered on 09/18/17 17:19; Start 08/19/17 at 13:00 Mirtazapine (Remeron) 7.5 mg QHS PO Last administered on 09/10/17 19:41; Start 08/19/17 at 21:00; Stop 09/11/17 at 19:42; Status DC Hydroxyzine HCl (Atarax) 50 mg PRN QHS PRN PO INSOMNIA, MAY REPEAT X1 Last administered on 09/11/17at 03:09; Start 08/20/17 at 22:30 Divalproex Sodium (Depakote Sprinkles) 2,250 mg BID PO Last administered on 08/26at 09:06; Start 08/23/17 at 21:00; Stop 08/26/17 at 10:43; Status DC Divalproex Sodium (Depakote Sprinkles) 2,500 mg BID PO Last administered on 08/28at 19:42; Start 08/26/17 at 21:00; Stop 08/28/17 at 22:15; Status DC Iohexol (Omnipaque 300 Mg/ml) 75 ml 1X ONCE IV Last administered on 08/27/17at 22:59; Start 08/27/17 at 19:00; Stop 08/27/17 at 19:04; Status DC Divalproex Sodium (Depakote Sprinkles) 1,250 mg QID PO Last administered on 08/29at 17:13; Start 08/29/17 at 09:00; Stop 08/29/17 at 17:51; Status DC Divalproex Sodium (Depakote Sprinkles) 1,250 mg BID@0900,1200 PO ; Start at 09:00; Stop 08/30/17 at 09:11; Status DC Divalproex Sodium (Depakote Sprinkles) 1,375 mg BID@1700,2100 PO Last administered on 08/29/17at 19:48; Start 08/29/17 at 21:00; Stop 08/30/17 at 09:11; Status DC Valproic Acid (Depakene) 1,375 mg BID@1700,2100 PO Last administered on at 19:47; Start 08/30/17 at 17:00 Valproic Acid (Depakene) 1,250 mg BID@0900,1200 PO Last administered on at 12:20; Start 08/30/17 at 09:15 Multi-Ingredient Ointment (Analgesic [place]) 1 carlee PRN QID PRN TP MUSCLE PAIN Last administered on 09/01/17at 19:35; Start 09/01/17 at 19:15 Mirtazapine (Remeron) 15 mg QHS PO Last administered on 09/18/17at 19:47; Start 09/11/17 at 21:00 Trazodone HCl (Desyrel) 50 mg PRN QHS PRN PO INSOMNIA, MAY REPEAT X1 Last administered on 09/11/17at 19:58; Start 09/11/17 at 19:45; Stop 09/15/17 at 18:46 ; Status DC Trazodone HCl (Desyrel) 25 mg TID@0900,1300,1700 PO Last administered on at 12:07; Start 09/16/17 at 09:00; Stop 09/16/17 at 12:21; Status DC Trazodone HCl (Desyrel) 12.5 mg TID@0900,1300,1700 PO Last administered on 09/17at 17:20; Start 09/16/17 at 13:00; Stop 09/17/17 at 19:19; Status DC Trazodone HCl (Desyrel) 12.5 mg BID@0900,1700 PO Last administered on at 07:48; Start 09/18/17 at 09:00; Stop 09/18/17 at 15:38; Status DC Active Scripts Active Reported Ibuprofen 400 Mg Tablet 400 Mg PO PRN Q4HRS PRN MDD 1200mg/24hrs Lorazepam 2 Mg/1 Ml Vial 1 Mg IM BID PRN Abilify Maintena (Aripiprazole) 400 Mg Suser.vial 400 Mg IM Q4WK Next dose due 08/26/17 Paroxetine Hcl 20 Mg Tablet 10 Mg PO DAILY Abilify (Aripiprazole) 5 Mg Tablet 5 Mg PO DAILY Fenofibrate 160 Mg Tablet 160 Mg PO QHS Olanzapine 5 Mg Tablet 5 Mg PO DAILY@1400 5mg PO daily at 14:00 Methylphenidate Hcl 10 Mg Tablet 10 Mg PO BID@0900,1300 Seroquel (Quetiapine Fumarate) 100 Mg Tablet 100 Mg PO BID Prevident 5000 (Sodium Fluoride) 100 Ml Gel..ml. 1 Carlee DT BID Selenium Sulfide 180 Ml Shampoo 1 Carlee TP TWICE WEEKLY Lorazepam 1 Mg Tablet 1 Mg PO PRN BID PRN Acetaminophen 500 Mg Tablet 500 Mg PO PRN Q4HRS PRN Risperdal Consta (Risperidone Microspheres) 25 Mg/2 Ml Disp.syrin 25 Mg IM Q2WKS Phenytoin 125 Mg/5 Ml Oral.susp 300 Mg PO QHS Zyprexa (Olanzapine) 20 Mg Tablet 20 Mg PO QHS Atorvastatin Calcium 10 Mg Tablet 10 Mg PO QHS Zyprexa (Olanzapine) 5 Mg Tablet 5 Mg PO DAILY@1400 Clozapine 200 Mg Tablet 500 Mg PO QHS Clozapine 200 Mg Tablet 200 Mg PO DAILY Detrol La (Tolterodine Tartrate) 2 Mg Cap.er.24h 2 Mg PO BID Depakote Er (Divalproex Sodium) 500 Mg Tab.er.24h 500 Mg PO DAILY Depakote Er (Divalproex Sodium) 500 Mg Tab.er.24h 1,000 Mg PO QHS [place] 3 1,000 Mg Softgel ([place]-3 Fatty Acids/Fish Oil) 1 Each Capsule 1,000 Mg PO DAILY Thera-M Tablet (Multivits,Ca,Minerals/Iron/Fa) 1 Each Tablet 1 Tab PO DAILY Vitamin D3 (Cholecalciferol (Vitamin D3)) 1,000 Unit Tablet 2,000 Unit PO DAILY Olanzapine 10 Mg Tablet 10 Mg PO DAILY Miralax (Polyethylene Glycol 3350) 119 Gm Powder 17 Gm PO DAILY Levothyroxine Sodium 200 Mcg Tablet 200 Mcg PO DAILY06 Pantoprazole Sodium 40 Mg Tablet.dr 40 Mg PO DAILY I have reviewed the current psychotropics carefully including drug interactions. Risk benefit ratio favors no change other than as noted in my dictated progress note. Diagnosis: Problems: (1) Dementia in Alzheimer's disease with delusions (2) Impulse control disorder (3) Schizoaffective disorder, chronic condition with acute exacerbation (4) Borderline intellectual disability STEVEN AYALA MD Sep 18, 2017 22:26
[2017-09-19] MEDS: LEVOTHYROXINE 100 MCG TABLET PO SCH (06:11)
[2017-09-19 06:19] VITALS: BP 106/57
[2017-09-19] MEDS: SERTRALINE 25 MG TABLET. PO SCH (07:48)
[2017-09-19] MEDS: POLYETHYLENE GLYCOL 3350 17 GM PACKET. PO SCH (07:48)
[2017-09-19] MEDS: OXYBUTYNIN CHLORIDE 5 MG TABLET PO SCH ×3 (07:48→19:37)
[2017-09-19] MEDS: QUEtiapine 50 MG TABLET. PO SCH ×3 (07:48→16:56)
[2017-09-19] MEDS: cloZAPine 100 MG TABLET PO SCH ×2 (07:48→19:37)
[2017-09-19] MEDS: busPIRone 5 MG TABLET. PO SCH ×3 (07:49→16:56)
[2017-09-19] MEDS: VALPROATE ACID 250 MG/5 ML ORAL SOLUTION PO SCH ×4 (07:49→19:38)
[2017-09-19 16:12] VITALS: BP 134/61
[2017-09-19] MEDS: PHENYTOIN SODIUM EXTENDED 100 MG CAPSULE PO SCH (19:36)
[2017-09-19] MEDS: ATORVASTATIN CALCIUM 10 MG TABLET. PO SCH (19:37)
[2017-09-19] MEDS: MIRTAZAPINE 7.5 MG TABLET. PO SCH (19:37)
--- NOTE | 2017-09-19 20:27 | PDOC ---
Exam Note: Chad Note: Please also refer to the separate dictated note~for this date of service dictated separately.~Patient seen individually. Discussed the patient with Nursing staff reviewed the chart.~Reviewed interim history and current functioning. Reviewed vital signs,~Labs/ Radiology~and current medications noted below. Continue current treatment with the changes noted in the dictated addendum note Assessment: Vital Signs: Vital Signs Date Time Temp Pulse Resp B/P (MAP) Pulse Ox O2 Delivery O2 Flow Rate FiO2 09/19/17 16:12 96.5 71 20 134/61 (85) 98 09/15/17 06:33 Room Air I&O Intake and Output 09/19/17 07:00 Intake Total 1080 ml Balance 1080 ml Intake Oral 1080 ml # Bowel Movements 1 Current Medications: Meds: Current Medications Valproic Acid (Depakene) 500 mg STAT PO Last administered on 07/30/17at 21:21; Start 07/30/17 at 20:49; Stop 08/01/17 at 15:23; Status DC Divalproex Sodium (Depakote Er) 1,000 mg QHS PO ; Start 07/31/17 at 21:00; Stop 07/31/17 at 21:00; Status DC Divalproex Sodium (Depakote Er) 500 mg DAILY PO ; Start 07/31/17 at 09:00; Stop 07/31/17 at 09:00; Status DC Lorazepam (Ativan) 1 mg PRN BID PRN PO ANXIETY / AGITATION Last administered on 09/05/17at 13:07; Start 07/30/17 at 23:00 Olanzapine (ZyPREXA) 10 mg DAILY PO ; Start 07/31/17 at 09:00; Stop 07/31/17 at 09:00; Status DC Olanzapine (ZyPREXA) 5 mg DAILY@1400 PO ; Start 07/31/17 at 14:00; Stop at 14:00; Status DC Risperidone (RisperDAL CONSTA) 25 mg Q2WKS IM ; Start 08/13/17 at 09:00; Status UNV Clozapine (Clozaril) 200 mg DAILY PO Last administered on 09/19/17at 07:48; Start 07/31/17 at 09:00 Clozapine (Clozaril) 500 mg QHS PO Last administered on 09/19/17at 19:37; Start 07/31/17 at 21:00 Olanzapine (ZyPREXA) 20 mg QHS PO Last administered on 07/31/17 20:28; Start 07/31/17 at 21:00; Stop 08/01/17 at 09:51; Status DC Atorvastatin Calcium (Lipitor) 10 mg QHS PO ; Start 07/31/17 at 21:00; Stop 03/10 at 21:00; Status DC Phenytoin Sodium (Dilantin) 300 mg QHS PO Last administered on 09/19/17 19:36 ; Start 07/31/17 at 21:00 Non-Formulary Medication (Sodium Fluoride (Prevident 5000)) 1 carlee BID DT ; Start 07/31/17 at 09:00; Stop 07/31/17 at 09:00; Status DC Oxybutynin Chloride (Ditropan) 5 mg [id number] PO Last administered on 09/19/17 19 :37; Start 07/31/17 at 09:00 Quetiapine Fumarate (SEROquel) 100 mg BID PO Last administered on 08/08/17 20: 51; Start 07/31/17 at 09:00; Stop 08/09/17 at 18:03; Status DC Acetaminophen (Tylenol) 500 mg PRN Q4HRS PRN PO PAIN Last administered on 20:16; Start 07/31/17 at 07:15 Levothyroxine Sodium (Synthroid) 200 mcg DAILY06 PO Last administered on 06:11; Start 07/31/17 at 07:15 Fish Oil (Fish Oil) 1,000 mg DAILY PO Last administered on 07/31/17 09:36; Start 07/31/17 at 09:00; Stop 08/01/17 at 09:51; Status DC Selenium Sulfide (Selsun) 1 carlee TWICEWEEKLY TP ; Start 07/31/17 at 07:30; Stop 07/31/17 at 14:29; Status DC Divalproex Sodium (Depakote Er) 1,000 mg QHS PO Last administered on 07/31/17 20:26; Start 07/31/17 at 21:00; Stop 08/01/17 at 18:29; Status DC Atorvastatin Calcium (Lipitor) 10 mg QHS PO Last administered on 09/19/17 19: 37; Start 07/31/17 at 21:00 Divalproex Sodium (Depakote Er) 500 mg DAILY PO Last administered on 08/01/17at 09:10; Start 07/31/17 at 09:00; Stop 08/01/17 at 09:51; Status DC Olanzapine (ZyPREXA) 10 mg DAILY PO Last administered on 08/01/17at 09:30; Start 07/31/17 at 09:00; Stop 08/01/17 at 09:51; Status DC Olanzapine (ZyPREXA) 5 mg DAILY@1400 PO Last administered on 07/31/17at 15:07; Start 07/31/17 at 14:00; Stop 08/01/17 at 09:51; Status DC Selenium Sulfide (Selsun) 1 carlee TWICEWEEKLY TP ; Start 07/31/17 at 14:29 Divalproex Sodium (Depakote Er) 750 mg DAILY PO ; Start 08/02/17 at 09:00; Stop 08/02/17 at 09:00; Status DC Divalproex Sodium (Depakote Sprinkles) 750 mg BID PO Last administered on at 09:21; Start 08/01/17 at 21:00; Stop 08/04/17 at 14:28; Status DC Al Hydroxide/Mg Hydroxide (Mylanta Plus Xs) 30 ml PRN AFTMEAL PRN PO DYSPEPSIA Last administered on 09/09/17at 00:29; Start 08/03/17 at 12:00 Magnesium Hydroxide (Milk Of Magnesia) 2,400 mg PRN DAILY PRN PO CONSTIPATION Last administered on 08/14/17 20:28; Start 08/03/17 at 17:00 Divalproex Sodium (Depakote Sprinkles) 1,000 mg BID PO Last administered on 07:51; Start 08/04/17 at 21:00; Stop 08/07/17 at 18:35; Status DC Polyethylene Glycol (miraLAX) 17 gm DAILY PO Last administered on 09/19/17at 07: 48; Start 08/05/17 at 09:00 Trazodone HCl (Desyrel) 100 mg QHS PO Last administered on 08/18/17at 19:34; Start 08/06/17 at 21:00; Stop 08/19/17 at 18:44; Status DC Trazodone HCl (Desyrel) 100 mg PRN QHS PRN PO INSOMNIA Last administered on at 21:05; Start 08/06/17 at 19:00; Stop 08/19/17 at 18:44; Status DC Divalproex Sodium (Depakote Sprinkles) 1,250 mg BID PO Last administered on at 20:51; Start 08/07/17 at 21:00; Stop 08/09/17 at 18:31; Status DC Quetiapine Fumarate (SEROquel) 50 mg BID PO Last administered on 08/19/17at 09: 19; Start 08/09/17 at 21:00; Stop 08/19/17 at 10:47; Status DC Divalproex Sodium (Depakote Sprinkles) 1,500 mg BID PO Last administered on at 08:25; Start 08/09/17 at 21:00; Stop 08/12/17 at 10:53; Status DC Trazodone HCl (Desyrel) 25 mg TID@0900,1300,1700 PO Last administered on at 17:10; Start 08/12/17 at 09:00; Stop 08/13/17 at 18:00; Status DC Divalproex Sodium (Depakote Sprinkles) 1,750 mg BID PO Last administered on at 09:32; Start 08/12/17 at 21:00; Stop 08/16/17 at 18:48; Status DC Trazodone HCl (Desyrel) 25 mg BID@1300,1700 PO Last administered on 09/15/17at 18:14; Start 08/14/17 at 13:00; Stop 09/15/17 at 18:46; Status DC Trazodone HCl (Desyrel) 50 mg DAILY PO Last administered on 09/15/17at 07:54; Start 08/14/17 at 09:00; Stop 09/16/17 at 09:32; Status DC Trazodone HCl (Desyrel) 50 mg 1X ONCE PO Last administered on 08/13/17at 18:29 ; Start 08/13/17 at 18:30; Stop 08/13/17 at 18:31; Status DC Sertraline HCl (Zoloft) 25 mg DAILY PO Last administered on 08/17/17at 07:47; Start 08/15/17 at 09:00; Stop 08/17/17 at 11:00; Status DC Sertraline HCl (Zoloft) 50 mg DAILY PO Last administered on 09/19/17at 07:48; Start 08/18/17 at 09:00 Divalproex Sodium (Depakote Sprinkles) 2,000 mg BID PO Last administered on 08/23at 09:05; Start 08/16/17 at 21:00; Stop 08/23/17 at 18:02; Status DC Buspirone HCl (Buspar) 5 mg TID@0900,1300,1700 PO Last administered on at 16:56; Start 08/17/17 at 09:00 Quetiapine Fumarate (SEROquel) 50 mg TID@0900,1300,1700 PO Last administered on 09/19/17at 16:56; Start 08/19/17 at 13:00 Mirtazapine (Remeron) 7.5 mg QHS PO Last administered on 09/10/17 19:41; Start 08/19/17 at 21:00; Stop 09/11/17 at 19:42; Status DC Hydroxyzine HCl (Atarax) 50 mg PRN QHS PRN PO INSOMNIA, MAY REPEAT X1 Last administered on 09/11/17at 03:09; Start 08/20/17 at 22:30 Divalproex Sodium (Depakote Sprinkles) 2,250 mg BID PO Last administered on 08/26at 09:06; Start 08/23/17 at 21:00; Stop 08/26/17 at 10:43; Status DC Divalproex Sodium (Depakote Sprinkles) 2,500 mg BID PO Last administered on 08/28at 19:42; Start 08/26/17 at 21:00; Stop 08/28/17 at 22:15; Status DC Iohexol (Omnipaque 300 Mg/ml) 75 ml 1X ONCE IV Last administered on 08/27/17at 22:59; Start 08/27/17 at 19:00; Stop 08/27/17 at 19:04; Status DC Divalproex Sodium (Depakote Sprinkles) 1,250 mg QID PO Last administered on 08/29at 17:13; Start 08/29/17 at 09:00; Stop 08/29/17 at 17:51; Status DC Divalproex Sodium (Depakote Sprinkles) 1,250 mg BID@0900,1200 PO ; Start at 09:00; Stop 08/30/17 at 09:11; Status DC Divalproex Sodium (Depakote Sprinkles) 1,375 mg BID@1700,2100 PO Last administered on 08/29/17at 19:48; Start 08/29/17 at 21:00; Stop 08/30/17 at 09:11; Status DC Valproic Acid (Depakene) 1,375 mg BID@1700,2100 PO Last administered on at 19:38; Start 08/30/17 at 17:00 Valproic Acid (Depakene) 1,250 mg BID@0900,1200 PO Last administered on at 11:54; Start 08/30/17 at 09:15 Multi-Ingredient Ointment (Analgesic [place]) 1 carlee PRN QID PRN TP MUSCLE PAIN Last administered on 09/01/17at 19:35; Start 09/01/17 at 19:15 Mirtazapine (Remeron) 15 mg QHS PO Last administered on 09/19/17at 19:37; Start 09/11/17 at 21:00 Trazodone HCl (Desyrel) 50 mg PRN QHS PRN PO INSOMNIA, MAY REPEAT X1 Last administered on 09/11/17at 19:58; Start 09/11/17 at 19:45; Stop 09/15/17 at 18:46 ; Status DC Trazodone HCl (Desyrel) 25 mg TID@0900,1300,1700 PO Last administered on at 12:07; Start 09/16/17 at 09:00; Stop 09/16/17 at 12:21; Status DC Trazodone HCl (Desyrel) 12.5 mg TID@0900,1300,1700 PO Last administered on 09/17at 17:20; Start 09/16/17 at 13:00; Stop 09/17/17 at 19:19; Status DC Trazodone HCl (Desyrel) 12.5 mg BID@0900,1700 PO Last administered on at 07:48; Start 09/18/17 at 09:00; Stop 09/18/17 at 15:38; Status DC Active Scripts Active Reported Ibuprofen 400 Mg Tablet 400 Mg PO PRN Q4HRS PRN MDD 1200mg/24hrs Lorazepam 2 Mg/1 Ml Vial 1 Mg IM BID PRN Abilify Maintena (Aripiprazole) 400 Mg Suser.vial 400 Mg IM Q4WK Next dose due 08/26/17 Paroxetine Hcl 20 Mg Tablet 10 Mg PO DAILY Abilify (Aripiprazole) 5 Mg Tablet 5 Mg PO DAILY Fenofibrate 160 Mg Tablet 160 Mg PO QHS Olanzapine 5 Mg Tablet 5 Mg PO DAILY@1400 5mg PO daily at 14:00 Methylphenidate Hcl 10 Mg Tablet 10 Mg PO BID@0900,1300 Seroquel (Quetiapine Fumarate) 100 Mg Tablet 100 Mg PO BID Prevident 5000 (Sodium Fluoride) 100 Ml Gel..ml. 1 Carlee DT BID Selenium Sulfide 180 Ml Shampoo 1 Carlee TP TWICE WEEKLY Lorazepam 1 Mg Tablet 1 Mg PO PRN BID PRN Acetaminophen 500 Mg Tablet 500 Mg PO PRN Q4HRS PRN Risperdal Consta (Risperidone Microspheres) 25 Mg/2 Ml Disp.syrin 25 Mg IM Q2WKS Phenytoin 125 Mg/5 Ml Oral.susp 300 Mg PO QHS Zyprexa (Olanzapine) 20 Mg Tablet 20 Mg PO QHS Atorvastatin Calcium 10 Mg Tablet 10 Mg PO QHS Zyprexa (Olanzapine) 5 Mg Tablet 5 Mg PO DAILY@1400 Clozapine 200 Mg Tablet 500 Mg PO QHS Clozapine 200 Mg Tablet 200 Mg PO DAILY Detrol La (Tolterodine Tartrate) 2 Mg Cap.er.24h 2 Mg PO BID Depakote Er (Divalproex Sodium) 500 Mg Tab.er.24h 500 Mg PO DAILY Depakote Er (Divalproex Sodium) 500 Mg Tab.er.24h 1,000 Mg PO QHS [place] 3 1,000 Mg Softgel ([place]-3 Fatty Acids/Fish Oil) 1 Each Capsule 1,000 Mg PO DAILY Thera-M Tablet (Multivits,Ca,Minerals/Iron/Fa) 1 Each Tablet 1 Tab PO DAILY Vitamin D3 (Cholecalciferol (Vitamin D3)) 1,000 Unit Tablet 2,000 Unit PO DAILY Olanzapine 10 Mg Tablet 10 Mg PO DAILY Miralax (Polyethylene Glycol 3350) 119 Gm Powder 17 Gm PO DAILY Levothyroxine Sodium 200 Mcg Tablet 200 Mcg PO DAILY06 Pantoprazole Sodium 40 Mg Tablet.dr 40 Mg PO DAILY I have reviewed the current psychotropics carefully including drug interactions. Risk benefit ratio favors no change other than as noted in my dictated progress note. Diagnosis: Problems: (1) Dementia in Alzheimer's disease with delusions (2) Impulse control disorder (3) Schizoaffective disorder, chronic condition with acute exacerbation (4) Borderline intellectual disability STEVEN AYALA MD Sep 19, 2017 20:27
[2017-09-19] MEDS: hydrOXYzine HCL 25 MG TABLET PO PRN (23:25)
--- NOTE | 2017-09-19 23:58 | PN ---
DATE: 09/17/2017 This late entry 09/17/2017 covers elements not covered in my initial note 09/17/2017. SUBJECTIVE: I met with the patient in the evening. Overall, the patient remains somewhat withdrawn, tired in his room, vomited at lunchtime, will be giving the Depakene with ____ prior to his meal to help with this, less obsessive, less anxious. REVIEW OF SYSTEMS: No CV, , pulmonary, eye system symptoms on review. MENTAL STATUS EXAM: Oriented to himself and situation. Speech is coherent, somewhat pressured, but less so than before. Abstraction fair, computation impaired, language function intact, attention span short. Mood and affect less labile. LABORATORY DATA: Reviewed. IMPRESSION: Unchanged from initial note. PLAN: Stop the daytime 1:00 trazodone for now and then we might discontinue the rest as well if sedation persists. Continue Rest unchanged per initial note. STEVEN AYALA MD DR: ADALBERTO/garry JOB#: [id number] / [id number]
[2017-09-20] MEDS: LORazepam 1 MG TABLET PO PRN (00:16)
[2017-09-20] MEDS: hydrOXYzine HCL 25 MG TABLET PO PRN (00:16)
[2017-09-20] MEDS: LEVOTHYROXINE 100 MCG TABLET PO SCH (05:35)
[2017-09-20 06:10] VITALS: BP 115/64
[2017-09-20] MEDS: SERTRALINE 25 MG TABLET. PO SCH (07:53)
[2017-09-20] MEDS: POLYETHYLENE GLYCOL 3350 17 GM PACKET. PO SCH (07:53)
[2017-09-20] MEDS: busPIRone 5 MG TABLET. PO SCH ×3 (07:54→17:01)
[2017-09-20] MEDS: QUEtiapine 50 MG TABLET. PO SCH ×3 (07:54→17:00)
[2017-09-20] MEDS: cloZAPine 100 MG TABLET PO SCH ×3 (07:54→22:09)
[2017-09-20] MEDS: OXYBUTYNIN CHLORIDE 5 MG TABLET PO SCH ×4 (07:54→22:01)
[2017-09-20] MEDS: VALPROATE ACID 250 MG/5 ML ORAL SOLUTION PO SCH ×5 (07:55→22:01)
[2017-09-20 16:08] VITALS: BP 114/79
[2017-09-20] MEDS: ATORVASTATIN CALCIUM 10 MG TABLET. PO SCH ×2 (18:59→22:01)
[2017-09-20] MEDS: PHENYTOIN SODIUM EXTENDED 100 MG CAPSULE PO SCH ×2 (18:59→22:01)
[2017-09-20] MEDS: MIRTAZAPINE 7.5 MG TABLET. PO SCH ×2 (18:59→22:01)
--- NOTE | 2017-09-20 21:29 | PDOC ---
Exam Note: Chad Note: Please also refer to the separate dictated note~for this date of service dictated separately.~Patient seen individually. Discussed the patient with Nursing staff reviewed the chart.~Reviewed interim history and current functioning. Reviewed vital signs,~Labs/ Radiology~and current medications noted below. Continue current treatment with the changes noted in the dictated addendum note Assessment: Vital Signs: Vital Signs Date Time Temp Pulse Resp B/P (MAP) Pulse Ox O2 Delivery O2 Flow Rate FiO2 09/20/17 16:08 96.9 75 16 114/79 (91) 99 09/15/17 06:33 Room Air I&O Intake and Output 09/20/17 07:00 Intake Total 1320 ml Balance 1320 ml Intake Oral 1320 ml Current Medications: Meds: Current Medications Valproic Acid (Depakene) 500 mg STAT PO Last administered on 07/30/17at 21:21; Start 07/30/17 at 20:49; Stop 08/01/17 at 15:23; Status DC Divalproex Sodium (Depakote Er) 1,000 mg QHS PO ; Start 07/31/17 at 21:00; Stop 07/31/17 at 21:00; Status DC Divalproex Sodium (Depakote Er) 500 mg DAILY PO ; Start 07/31/17 at 09:00; Stop 07/31/17 at 09:00; Status DC Lorazepam (Ativan) 1 mg PRN BID PRN PO ANXIETY / AGITATION Last administered on 09/20/17at 00:16; Start 07/30/17 at 23:00 Olanzapine (ZyPREXA) 10 mg DAILY PO ; Start 07/31/17 at 09:00; Stop 07/31/17 at 09:00; Status DC Olanzapine (ZyPREXA) 5 mg DAILY@1400 PO ; Start 07/31/17 at 14:00; Stop at 14:00; Status DC Risperidone (RisperDAL CONSTA) 25 mg Q2WKS IM ; Start 08/13/17 at 09:00; Status UNV Clozapine (Clozaril) 200 mg DAILY PO Last administered on 09/20/17at 07:54; Start 07/31/17 at 09:00 Clozapine (Clozaril) 500 mg QHS PO Last administered on 09/20/17at 19:01; Start 07/31/17 at 21:00 Olanzapine (ZyPREXA) 20 mg QHS PO Last administered on 07/31/17 20:28; Start 07/31/17 at 21:00; Stop 08/01/17 at 09:51; Status DC Atorvastatin Calcium (Lipitor) 10 mg QHS PO ; Start 07/31/17 at 21:00; Stop 03/10 at 21:00; Status DC Phenytoin Sodium (Dilantin) 300 mg QHS PO Last administered on 09/20/17 18:59 ; Start 07/31/17 at 21:00 Non-Formulary Medication (Sodium Fluoride (Prevident 5000)) 1 carlee BID DT ; Start 07/31/17 at 09:00; Stop 07/31/17 at 09:00; Status DC Oxybutynin Chloride (Ditropan) 5 mg UPC068 PO Last administered on 09/20/17 18 :59; Start 07/31/17 at 09:00 Quetiapine Fumarate (SEROquel) 100 mg BID PO Last administered on 08/08/17 20: 51; Start 07/31/17 at 09:00; Stop 08/09/17 at 18:03; Status DC Acetaminophen (Tylenol) 500 mg PRN Q4HRS PRN PO PAIN Last administered on 20:16; Start 07/31/17 at 07:15 Levothyroxine Sodium (Synthroid) 200 mcg DAILY06 PO Last administered on at 05:35; Start 07/31/17 at 07:15 Fish Oil (Fish Oil) 1,000 mg DAILY PO Last administered on 07/31/17at 09:36; Start 07/31/17 at 09:00; Stop 08/01/17 at 09:51; Status DC Selenium Sulfide (Selsun) 1 carlee TWICEWEEKLY TP ; Start 07/31/17 at 07:30; Stop 07/31/17 at 14:29; Status DC Divalproex Sodium (Depakote Er) 1,000 mg QHS PO Last administered on 07/31/17 20:26; Start 07/31/17 at 21:00; Stop 08/01/17 at 18:29; Status DC Atorvastatin Calcium (Lipitor) 10 mg QHS PO Last administered on 4/30/18at 18: 59; Start 07/31/17 at 21:00 Divalproex Sodium (Depakote Er) 500 mg DAILY PO Last administered on 08/01/17at 09:10; Start 07/31/17 at 09:00; Stop 08/01/17 at 09:51; Status DC Olanzapine (ZyPREXA) 10 mg DAILY PO Last administered on 08/01/17at 09:30; Start 07/31/17 at 09:00; Stop 08/01/17 at 09:51; Status DC Olanzapine (ZyPREXA) 5 mg DAILY@1400 PO Last administered on 07/31/17at 15:07; Start 07/31/17 at 14:00; Stop 08/01/17 at 09:51; Status DC Selenium Sulfide (Selsun) 1 carlee TWICEWEEKLY TP ; Start 07/31/17 at 14:29 Divalproex Sodium (Depakote Er) 750 mg DAILY PO ; Start 08/02/17 at 09:00; Stop 08/02/17 at 09:00; Status DC Divalproex Sodium (Depakote Sprinkles) 750 mg BID PO Last administered on at 09:21; Start 08/01/17 at 21:00; Stop 08/04/17 at 14:28; Status DC Al Hydroxide/Mg Hydroxide (Mylanta Plus Xs) 30 ml PRN AFTMEAL PRN PO DYSPEPSIA Last administered on 09/09/17at 00:29; Start 08/03/17 at 12:00 Magnesium Hydroxide (Milk Of Magnesia) 2,400 mg PRN DAILY PRN PO CONSTIPATION Last administered on 08/14/17at 20:28; Start 08/03/17 at 17:00 Divalproex Sodium (Depakote Sprinkles) 1,000 mg BID PO Last administered on at 07:51; Start 08/04/17 at 21:00; Stop 08/07/17 at 18:35; Status DC Polyethylene Glycol (miraLAX) 17 gm DAILY PO Last administered on 09/20/17 07: 53; Start 08/05/17 at 09:00 Trazodone HCl (Desyrel) 100 mg QHS PO Last administered on 08/18/17at 19:34; Start 08/06/17 at 21:00; Stop 08/19/17 at 18:44; Status DC Trazodone HCl (Desyrel) 100 mg PRN QHS PRN PO INSOMNIA Last administered on at 21:05; Start 08/06/17 at 19:00; Stop 08/19/17 at 18:44; Status DC Divalproex Sodium (Depakote Sprinkles) 1,250 mg BID PO Last administered on at 20:51; Start 08/07/17 at 21:00; Stop 08/09/17 at 18:31; Status DC Quetiapine Fumarate (SEROquel) 50 mg BID PO Last administered on 08/19/17at 09: 19; Start 08/09/17 at 21:00; Stop 08/19/17 at 10:47; Status DC Divalproex Sodium (Depakote Sprinkles) 1,500 mg BID PO Last administered on at 08:25; Start 08/09/17 at 21:00; Stop 08/12/17 at 10:53; Status DC Trazodone HCl (Desyrel) 25 mg TID@0900,1300,1700 PO Last administered on at 17:10; Start 08/12/17 at 09:00; Stop 08/13/17 at 18:00; Status DC Divalproex Sodium (Depakote Sprinkles) 1,750 mg BID PO Last administered on at 09:32; Start 08/12/17 at 21:00; Stop 08/16/17 at 18:48; Status DC Trazodone HCl (Desyrel) 25 mg BID@1300,1700 PO Last administered on 09/15/17at 18:14; Start 08/14/17 at 13:00; Stop 09/15/17 at 18:46; Status DC Trazodone HCl (Desyrel) 50 mg DAILY PO Last administered on 09/15/17at 07:54; Start 08/14/17 at 09:00; Stop 09/16/17 at 09:32; Status DC Trazodone HCl (Desyrel) 50 mg 1X ONCE PO Last administered on 08/13/17at 18:29 ; Start 08/13/17 at 18:30; Stop 08/13/17 at 18:31; Status DC Sertraline HCl (Zoloft) 25 mg DAILY PO Last administered on 08/17/17at 07:47; Start 08/15/17 at 09:00; Stop 08/17/17 at 11:00; Status DC Sertraline HCl (Zoloft) 50 mg DAILY PO Last administered on 09/20/17at 07:53; Start 08/18/17 at 09:00 Divalproex Sodium (Depakote Sprinkles) 2,000 mg BID PO Last administered on 08/23at 09:05; Start 08/16/17 at 21:00; Stop 08/23/17 at 18:02; Status DC Buspirone HCl (Buspar) 5 mg TID@0900,1300,1700 PO Last administered on at 17:01; Start 08/17/17 at 09:00 Quetiapine Fumarate (SEROquel) 50 mg TID@0900,1300,1700 PO Last administered on 09/20/17at 17:00; Start 08/19/17 at 13:00 Mirtazapine (Remeron) 7.5 mg QHS PO Last administered on 09/10/17 19:41; Start 08/19/17 at 21:00; Stop 09/11/17 at 19:42; Status DC Hydroxyzine HCl (Atarax) 50 mg PRN QHS PRN PO INSOMNIA, MAY REPEAT X1 Last administered on 09/20/17at 00:16; Start 08/20/17 at 22:30 Divalproex Sodium (Depakote Sprinkles) 2,250 mg BID PO Last administered on 08/26 09:06; Start 08/23/17 at 21:00; Stop 08/26/17 at 10:43; Status DC Divalproex Sodium (Depakote Sprinkles) 2,500 mg BID PO Last administered on 08/28at 19:42; Start 08/26/17 at 21:00; Stop 08/28/17 at 22:15; Status DC Iohexol (Omnipaque 300 Mg/ml) 75 ml 1X ONCE IV Last administered on 08/27/17at 22:59; Start 08/27/17 at 19:00; Stop 08/27/17 at 19:04; Status DC Divalproex Sodium (Depakote Sprinkles) 1,250 mg QID PO Last administered on 08/29at 17:13; Start 08/29/17 at 09:00; Stop 08/29/17 at 17:51; Status DC Divalproex Sodium (Depakote Sprinkles) 1,250 mg BID@0900,1200 PO ; Start at 09:00; Stop 08/30/17 at 09:11; Status DC Divalproex Sodium (Depakote Sprinkles) 1,375 mg BID@1700,2100 PO Last administered on 08/29/17at 19:48; Start 08/29/17 at 21:00; Stop 08/30/17 at 09:11; Status DC Valproic Acid (Depakene) 1,375 mg BID@1700,2100 PO Last administered on at 18:58; Start 08/30/17 at 17:00 Valproic Acid (Depakene) 1,250 mg BID@0900,1200 PO Last administered on at 12:16; Start 08/30/17 at 09:15 Multi-Ingredient Ointment (Analgesic [place]) 1 carlee PRN QID PRN TP MUSCLE PAIN Last administered on 09/01/17at 19:35; Start 09/01/17 at 19:15 Mirtazapine (Remeron) 15 mg QHS PO Last administered on 09/20/17at 18:59; Start 09/11/17 at 21:00 Trazodone HCl (Desyrel) 50 mg PRN QHS PRN PO INSOMNIA, MAY REPEAT X1 Last administered on 09/11/17at 19:58; Start 09/11/17 at 19:45; Stop 09/15/17 at 18:46 ; Status DC Trazodone HCl (Desyrel) 25 mg TID@0900,1300,1700 PO Last administered on at 12:07; Start 09/16/17 at 09:00; Stop 09/16/17 at 12:21; Status DC Trazodone HCl (Desyrel) 12.5 mg TID@0900,1300,1700 PO Last administered on 09/17at 17:20; Start 09/16/17 at 13:00; Stop 09/17/17 at 19:19; Status DC Trazodone HCl (Desyrel) 12.5 mg BID@0900,1700 PO Last administered on at 07:48; Start 09/18/17 at 09:00; Stop 09/18/17 at 15:38; Status DC Active Scripts Active Reported Ibuprofen 400 Mg Tablet 400 Mg PO PRN Q4HRS PRN MDD 1200mg/24hrs Lorazepam 2 Mg/1 Ml Vial 1 Mg IM BID PRN Abilify Maintena (Aripiprazole) 400 Mg Suser.vial 400 Mg IM Q4WK Next dose due 08/26/17 Paroxetine Hcl 20 Mg Tablet 10 Mg PO DAILY Abilify (Aripiprazole) 5 Mg Tablet 5 Mg PO DAILY Fenofibrate 160 Mg Tablet 160 Mg PO QHS Olanzapine 5 Mg Tablet 5 Mg PO DAILY@1400 5mg PO daily at 14:00 Methylphenidate Hcl 10 Mg Tablet 10 Mg PO BID@0900,1300 Seroquel (Quetiapine Fumarate) 100 Mg Tablet 100 Mg PO BID Prevident 5000 (Sodium Fluoride) 100 Ml Gel..ml. 1 Carlee DT BID Selenium Sulfide 180 Ml Shampoo 1 Carlee TP TWICE WEEKLY Lorazepam 1 Mg Tablet 1 Mg PO PRN BID PRN Acetaminophen 500 Mg Tablet 500 Mg PO PRN Q4HRS PRN Risperdal Consta (Risperidone Microspheres) 25 Mg/2 Ml Disp.syrin 25 Mg IM Q2WKS Phenytoin 125 Mg/5 Ml Oral.susp 300 Mg PO QHS Zyprexa (Olanzapine) 20 Mg Tablet 20 Mg PO QHS Atorvastatin Calcium 10 Mg Tablet 10 Mg PO QHS Zyprexa (Olanzapine) 5 Mg Tablet 5 Mg PO DAILY@1400 Clozapine 200 Mg Tablet 500 Mg PO QHS Clozapine 200 Mg Tablet 200 Mg PO DAILY Detrol La (Tolterodine Tartrate) 2 Mg Cap.er.24h 2 Mg PO BID Depakote Er (Divalproex Sodium) 500 Mg Tab.er.24h 500 Mg PO DAILY Depakote Er (Divalproex Sodium) 500 Mg Tab.er.24h 1,000 Mg PO QHS [place] 3 1,000 Mg Softgel ([place]-3 Fatty Acids/Fish Oil) 1 Each Capsule 1,000 Mg PO DAILY Thera-M Tablet (Multivits,Ca,Minerals/Iron/Fa) 1 Each Tablet 1 Tab PO DAILY Vitamin D3 (Cholecalciferol (Vitamin D3)) 1,000 Unit Tablet 2,000 Unit PO DAILY Olanzapine 10 Mg Tablet 10 Mg PO DAILY Miralax (Polyethylene Glycol 3350) 119 Gm Powder 17 Gm PO DAILY Levothyroxine Sodium 200 Mcg Tablet 200 Mcg PO DAILY06 Pantoprazole Sodium 40 Mg Tablet.dr 40 Mg PO DAILY I have reviewed the current psychotropics carefully including drug interactions. Risk benefit ratio favors no change other than as noted in my dictated progress note. Diagnosis: Problems: (1) Dementia in Alzheimer's disease with delusions (2) Impulse control disorder (3) Schizoaffective disorder, chronic condition with acute exacerbation (4) Borderline intellectual disability STEVEN AYALA MD Sep 20, 2017 21:29
[2017-09-21] MEDS: hydrOXYzine HCL 25 MG TABLET PO PRN (00:11)
--- NOTE | 2017-09-21 02:52 | PN ---
DATE: 09/18/2017 This late entry 09/18/2017 covers elements not covered in my initial note 09/18/2017. Met with the patient in the evening. The patient slept 6-3/4 hours previous evening. He has had no emesis then took his medications before his lunchtime, but he is quite sedated during the day. REVIEW OF SYSTEMS: No CV, , pulmonary, eye, ENT system symptoms on review. Much less psychotic, not shaking his head from side to side like he was a few days back with possible hallucinations. MENTAL STATUS EXAM: More oriented to himself and situation. Speech coherent, rapid, less so than before. Abstraction fair, computation impaired, language function intact, attention span short, mood and affect less anxious, less labile. LABORATORY DATA: Reviewed. IMPRESSION: Schizoaffective disorder, bipolar type. Rest unchanged. PLAN: Stop the trazodone 12.5 mg b.i.d. due to his daytime sedation. Continue rest unchanged from initial note. MAN Suleman AYALA MD DR: ADALBERTO/garry JOB#: [id number] / [id number]
--- NOTE | 2017-09-21 04:11 | PN ---
DATE: 09/19/2017 PSYCHIATRIC PROGRESS NOTE This late entry 09/19/2017 covers elements not covered in my initial note of 09/19/2017. SUBJECTIVE: I met with the patient in the evening. The patient slept 3-1/4 hours previous evening, but he had not received the trazodone and hydroxyzine and we will give it to him the night of 09/19/2017 to see how he sleeps. We will be checking a valproic acid level morning of 09/20/2017, since it could have increased somewhat after we stopped the trazodone scheduled during the day. REVIEW OF SYSTEMS: No CV, , pulmonary, eye, ENT system symptoms on review. MENTAL STATUS EXAM: Oriented to himself and situation. Speech: Coherent, less pressured. Abstraction fair, computation impaired, language function intact, attention span short. Mood and affect remain somewhat anxious, but improved. LABORATORIES: Reviewed. No suicidal or homicidal ideation. IMPRESSION: Schizoaffective disorder, bipolar type, mixed and intellectual disability. PLAN: Continue psychotropics mentioned in my initial note. MAN Suleman AYALA MD DR: ADALBERTO/garry JOB#: [id number] / [id number]
[2017-09-21] MEDS ORDERED: MAG30ORA2 PO (06:15)
[2017-09-21] MEDS ORDERED: MAGN400O7 PO (06:16)
[2017-09-21] MEDS ORDERED: METH29OI TP (06:19)
[2017-09-21] MEDS ORDERED: MIRT15TA3 PO (06:20)
[2017-09-21 06:22] VITALS: BP 121/56
[2017-09-21] MEDS ORDERED: SERT50TA PO (06:26)
[2017-09-21] MEDS ORDERED: BUSP5TAB PO (06:30)
[2017-09-21] MEDS ORDERED: HYDR50TA PO (06:31)
[2017-09-21] MEDS ORDERED: VALP250S PO ×2 (06:32→09:57)
[2017-09-21] MEDS: LEVOTHYROXINE 100 MCG TABLET PO SCH (07:10)
[2017-09-21] MEDS: busPIRone 5 MG TABLET. PO SCH (08:18)
[2017-09-21] MEDS: OXYBUTYNIN CHLORIDE 5 MG TABLET PO SCH (08:18)
[2017-09-21] MEDS: cloZAPine 100 MG TABLET PO SCH (08:18)
[2017-09-21] MEDS: POLYETHYLENE GLYCOL 3350 17 GM PACKET. PO SCH (08:20)
[2017-09-21] MEDS: QUEtiapine 50 MG TABLET. PO SCH (08:20)
[2017-09-21] MEDS: SERTRALINE 25 MG TABLET. PO SCH (08:20)
[2017-09-21] MEDS: VALPROATE ACID 250 MG/5 ML ORAL SOLUTION PO SCH (08:51)
[2017-09-21 09:24] LABS: BASO # 0.1 x10^3/uL (0.0-0.2); BASO % 1 % (0-3); EOS # 0.3 x10^3/uL (0.0-0.7); EOS % 4 % (0-3); HEMATOCRIT 39.7 % (39.0-53.0); HEMOGLOBIN 13.2 g/dL (13.0-17.5); LYMPH # 2.3 x10^3/uL (1.0-4.8); LYMPH % 30 % (24-48); MEAN CORPUSCULAR HEMOGLOBIN 31 pg (25-35); MEAN CORPUSCULAR HGB CONC 33 g/dL (31-37); MEAN CORPUSCULAR VOLUME 92 fL (79-100); MONO # 0.7 x10^3/uL (0.0-1.1); MONO % 9 % (0-9); NEUT # 4.3 x10^3uL (1.8-7.7); NEUT % 56 % (31-73); PLATELET COUNT 156 x10^3/uL (140-400); RED CELL DISTRIBUTION WIDTH 12.8 % (11.5-14.5); WHITE BLOOD COUNT 7.6 x10^3/uL (4.0-11.0)
[2017-09-21 09:37] LABS: ALBUMIN 2.8 g/dL (3.4-5.0); ALBUMIN/GLOBULIN RATIO 0.7 (1.0-1.7); CALCIUM 8.4 mg/dL (8.5-10.1); GFR 77.9; MAGNESIUM 1.7 mg/dL (1.8-2.4); TOTAL BILIRUBIN 0.2 mg/dL (0.2-1.0); TOTAL PROTEIN 6.6 g/dL (6.4-8.2)
[2017-09-21] MEDS ORDERED: PHEN300C4 PO (09:57)
[2017-09-21] MEDS ORDERED: QUET50TA PO (09:57)
--- NOTE | 2017-09-21 21:27 | PDOC ---
Exam Note: Chad Note: Please also refer to the separate dictated note~for this date of service dictated separately.~Patient seen individually. Discussed the patient with Nursing staff reviewed the chart.~Reviewed interim history and current functioning. Reviewed vital signs,~Labs/ Radiology~and current medications noted below. Continue current treatment with the changes noted in the dictated addendum note Assessment: Vital Signs: Vital Signs Date Time Temp Pulse Resp B/P (MAP) Pulse Ox O2 Delivery O2 Flow Rate FiO2 09/21/17 06:22 97.2 78 18 121/56 (77) 98 Room Air I&O Intake and Output 09/21/17 07:00 Intake Total 840 ml Balance 840 ml Intake Oral 840 ml # Voids 1 Labs: Laboratory Tests Test 09/21/17 09:14 White Blood Count 7.6 x10^3/uL (4.0-11.0) Red Blood Count 4.30 x10^6/uL (4.30-5.70) Hemoglobin 13.2 g/dL (13.0-17.5) Hematocrit 39.7 % (39.0-53.0) Mean Corpuscular Volume 92 fL (79-100) Mean Corpuscular Hemoglobin 31 pg (25-35) Mean Corpuscular Hemoglobin Concent 33 g/dL (31-37) Red Cell Distribution Width 12.8 % (11.5-14.5) Platelet Count 156 x10^3/uL (140-400) Neutrophils (%) (Auto) 56 % (31-73) Lymphocytes (%) (Auto) 30 % (24-48) Monocytes (%) (Auto) 9 % (0-9) Eosinophils (%) (Auto) 4 % (0-3) H Basophils (%) (Auto) 1 % (0-3) Neutrophils # (Auto) 4.3 x10^3uL (1.8-7.7) Lymphocytes # (Auto) 2.3 x10^3/uL (1.0-4.8) Monocytes # (Auto) 0.7 x10^3/uL (0.0-1.1) Eosinophils # (Auto) 0.3 x10^3/uL (0.0-0.7) Basophils # (Auto) 0.1 x10^3/uL (0.0-0.2) Sodium Level 139 mmol/L (136-145) Potassium Level 4.0 mmol/L (3.5-5.1) Chloride Level 104 mmol/L (98-107) Carbon Dioxide Level 26 mmol/L (21-32) Anion Gap 9 (6-14) Blood Urea Nitrogen 17 mg/dL (8-26) Creatinine 1.0 mg/dL (0.7-1.3) Estimated GFR (Cockcroft-Gault) 77.9 BUN/Creatinine Ratio 17 (6-20) Glucose Level 160 mg/dL (70-99) H Calcium Level 8.4 mg/dL (8.5-10.1) L Magnesium Level 1.7 mg/dL (1.8-2.4) L Total Bilirubin 0.2 mg/dL (0.2-1.0) Aspartate Amino Transferase (AST) 29 U/L (15-37) Alanine Aminotransferase (ALT) 45 U/L (16-63) Alkaline Phosphatase 87 U/L (46-116) Total Protein 6.6 g/dL (6.4-8.2) Albumin 2.8 g/dL (3.4-5.0) L Albumin/Globulin Ratio 0.7 (1.0-1.7) L Current Medications: Meds: Current Medications Valproic Acid (Depakene) 500 mg STAT PO Last administered on 07/30/17at 21:21; Start 07/30/17 at 20:49; Stop 08/01/17 at 15:23; Status DC Divalproex Sodium (Depakote Er) 1,000 mg QHS PO ; Start 07/31/17 at 21:00; Stop 07/31/17 at 21:00; Status DC Divalproex Sodium (Depakote Er) 500 mg DAILY PO ; Start 07/31/17 at 09:00; Stop 07/31/17 at 09:00; Status DC Lorazepam (Ativan) 1 mg PRN BID PRN PO ANXIETY / AGITATION Last administered on 09/20/17at 00:16; Start 07/30/17 at 23:00; Stop 09/21/17 at 10:45; Status DC Olanzapine (ZyPREXA) 10 mg DAILY PO ; Start 07/31/17 at 09:00; Stop 07/31/17 at 09:00; Status DC Olanzapine (ZyPREXA) 5 mg DAILY@1400 PO ; Start 07/31/17 at 14:00; Stop at 14:00; Status DC Risperidone (RisperDAL CONSTA) 25 mg Q2WKS IM ; Start 08/13/17 at 09:00; Status UNV Clozapine (Clozaril) 200 mg DAILY PO Last administered on 09/21/17at 08:18; Start 07/31/17 at 09:00; Stop 09/21/17 at 10:45; Status DC Clozapine (Clozaril) 500 mg QHS PO Last administered on 09/20/17at 22:09; Start 07/31/17 at 21:00; Stop 09/21/17 at 10:45; Status DC Olanzapine (ZyPREXA) 20 mg QHS PO Last administered on 07/31/17at 20:28; Start 07/31/17 at 21:00; Stop 08/01/17 at 09:51; Status DC Atorvastatin Calcium (Lipitor) 10 mg QHS PO ; Start 07/31/17 at 21:00; Stop 03/10 at 21:00; Status DC Phenytoin Sodium (Dilantin) 300 mg QHS PO Last administered on 09/20/17at 22:01 ; Start 07/31/17 at 21:00; Stop 09/21/17 at 10:45; Status DC Non-Formulary Medication (Sodium Fluoride (Prevident 5000)) 1 carlee BID DT ; Start 07/31/17 at 09:00; Stop 07/31/17 at 09:00; Status DC Oxybutynin Chloride (Ditropan) 5 mg [id number] PO Last administered on 09/21/17at 08: 18; Start 07/31/17 at 09:00; Stop 09/21/17 at 10:45; Status DC Quetiapine Fumarate (SEROquel) 100 mg BID PO Last administered on 08/08/17at 20: 51; Start 07/31/17 at 09:00; Stop 08/09/17 at 18:03; Status DC Acetaminophen (Tylenol) 500 mg PRN Q4HRS PRN PO PAIN Last administered on at 20:16; Start 07/31/17 at 07:15; Stop 09/21/17 at 10:45; Status DC Levothyroxine Sodium (Synthroid) 200 mcg DAILY06 PO Last administered on at 07:10; Start 07/31/17 at 07:15; Stop 09/21/17 at 10:45; Status DC Fish Oil (Fish Oil) 1,000 mg DAILY PO Last administered on 07/31/17at 09:36; Start 07/31/17 at 09:00; Stop 08/01/17 at 09:51; Status DC Selenium Sulfide (Selsun) 1 carlee TWICEWEEKLY TP ; Start 07/31/17 at 07:30; Stop 07/31/17 at 14:29; Status DC Divalproex Sodium (Depakote Er) 1,000 mg QHS PO Last administered on 07/31/17at 20:26; Start 07/31/17 at 21:00; Stop 08/01/17 at 18:29; Status DC Atorvastatin Calcium (Lipitor) 10 mg QHS PO Last administered on 09/20/17at 22: 01; Start 07/31/17 at 21:00; Stop 09/21/17 at 10:45; Status DC Divalproex Sodium (Depakote Er) 500 mg DAILY PO Last administered on 08/01/17at 09:10; Start 07/31/17 at 09:00; Stop 08/01/17 at 09:51; Status DC Olanzapine (ZyPREXA) 10 mg DAILY PO Last administered on 08/01/17at 09:30; Start 07/31/17 at 09:00; Stop 08/01/17 at 09:51; Status DC Olanzapine (ZyPREXA) 5 mg DAILY@1400 PO Last administered on 07/31/17at 15:07; Start 07/31/17 at 14:00; Stop 08/01/17 at 09:51; Status DC Selenium Sulfide (Selsun) 1 carlee TWICEWEEKLY TP ; Start 07/31/17 at 14:29; Stop 09/21/17 at 10:45; Status DC Divalproex Sodium (Depakote Er) 750 mg DAILY PO ; Start 08/02/17 at 09:00; Stop 08/02/17 at 09:00; Status DC Divalproex Sodium (Depakote Sprinkles) 750 mg BID PO Last administered on at 09:21; Start 08/01/17 at 21:00; Stop 08/04/17 at 14:28; Status DC Al Hydroxide/Mg Hydroxide (Mylanta Plus Xs) 30 ml PRN AFTMEAL PRN PO DYSPEPSIA Last administered on 09/09/17at 00:29; Start 08/03/17 at 12:00; Stop 09/21/17 at 10:45; Status DC Magnesium Hydroxide (Milk Of Magnesia) 2,400 mg PRN DAILY PRN PO CONSTIPATION Last administered on 08/14/17at 20:28; Start 08/03/17 at 17:00; Stop 09/21/17 at 10:45; Status DC Divalproex Sodium (Depakote Sprinkles) 1,000 mg BID PO Last administered on at 07:51; Start 08/04/17 at 21:00; Stop 08/07/17 at 18:35; Status DC Polyethylene Glycol (miraLAX) 17 gm DAILY PO Last administered on 09/21/17 08: 20; Start 08/05/17 at 09:00; Stop 09/21/17 at 10:45; Status DC Trazodone HCl (Desyrel) 100 mg QHS PO Last administered on 08/18/17at 19:34; Start 08/06/17 at 21:00; Stop 08/19/17 at 18:44; Status DC Trazodone HCl (Desyrel) 100 mg PRN QHS PRN PO INSOMNIA Last administered on at 21:05; Start 08/06/17 at 19:00; Stop 08/19/17 at 18:44; Status DC Divalproex Sodium (Depakote Sprinkles) 1,250 mg BID PO Last administered on at 20:51; Start 08/07/17 at 21:00; Stop 08/09/17 at 18:31; Status DC Quetiapine Fumarate (SEROquel) 50 mg BID PO Last administered on 08/19/17at 09: 19; Start 08/09/17 at 21:00; Stop 08/19/17 at 10:47; Status DC Divalproex Sodium (Depakote Sprinkles) 1,500 mg BID PO Last administered on at 08:25; Start 08/09/17 at 21:00; Stop 08/12/17 at 10:53; Status DC Trazodone HCl (Desyrel) 25 mg TID@0900,1300,1700 PO Last administered on at 17:10; Start 08/12/17 at 09:00; Stop 08/13/17 at 18:00; Status DC Divalproex Sodium (Depakote Sprinkles) 1,750 mg BID PO Last administered on at 09:32; Start 08/12/17 at 21:00; Stop 08/16/17 at 18:48; Status DC Trazodone HCl (Desyrel) 25 mg BID@1300,1700 PO Last administered on 09/15/17at 18:14; Start 08/14/17 at 13:00; Stop 09/15/17 at 18:46; Status DC Trazodone HCl (Desyrel) 50 mg DAILY PO Last administered on 09/15/17at 07:54; Start 08/14/17 at 09:00; Stop 09/16/17 at 09:32; Status DC Trazodone HCl (Desyrel) 50 mg 1X ONCE PO Last administered on 08/13/17at 18:29 ; Start 08/13/17 at 18:30; Stop 08/13/17 at 18:31; Status DC Sertraline HCl (Zoloft) 25 mg DAILY PO Last administered on 08/17/17at 07:47; Start 08/15/17 at 09:00; Stop 08/17/17 at 11:00; Status DC Sertraline HCl (Zoloft) 50 mg DAILY PO Last administered on 09/21/17at 08:20; Start 08/18/17 at 09:00; Stop 09/21/17 at 10:45; Status DC Divalproex Sodium (Depakote Sprinkles) 2,000 mg BID PO Last administered on 08/23at 09:05; Start 08/16/17 at 21:00; Stop 08/23/17 at 18:02; Status DC Buspirone HCl (Buspar) 5 mg TID@0900,1300,1700 PO Last administered on at 08:18; Start 08/17/17 at 09:00; Stop 09/21/17 at 10:45; Status DC Quetiapine Fumarate (SEROquel) 50 mg TID@0900,1300,1700 PO Last administered on 09/21/17at 08:20; Start 08/19/17 at 13:00; Stop 09/21/17 at 10:45; Status DC Mirtazapine (Remeron) 7.5 mg QHS PO Last administered on 09/10/17at 19:41; Start 08/19/17 at 21:00; Stop 09/11/17 at 19:42; Status DC Hydroxyzine HCl (Atarax) 50 mg PRN QHS PRN PO INSOMNIA, SEPTEMBER REPEAT X1 Last administered on 09/21/17at 00:11; Start 08/20/17 at 22:30; Stop 09/21/17 at 10:45; Status DC Divalproex Sodium (Depakote Sprinkles) 2,250 mg BID PO Last administered on 08/26at 09:06; Start 08/23/17 at 21:00; Stop 08/26/17 at 10:43; Status DC Divalproex Sodium (Depakote Sprinkles) 2,500 mg BID PO Last administered on 08/28at 19:42; Start 08/26/17 at 21:00; Stop 08/28/17 at 22:15; Status DC Iohexol (Omnipaque 300 Mg/ml) 75 ml 1X ONCE IV Last administered on 08/27/17at 22:59; Start 08/27/17 at 19:00; Stop 08/27/17 at 19:04; Status DC Divalproex Sodium (Depakote Sprinkles) 1,250 mg QID PO Last administered on 08/29at 17:13; Start 08/29/17 at 09:00; Stop 08/29/17 at 17:51; Status DC Divalproex Sodium (Depakote Sprinkles) 1,250 mg BID@0900,1200 PO ; Start at 09:00; Stop 08/30/17 at 09:11; Status DC Divalproex Sodium (Depakote Sprinkles) 1,375 mg BID@1700,2100 PO Last administered on 08/29/17at 19:48; Start 08/29/17 at 21:00; Stop 08/30/17 at 09:11; Status DC Valproic Acid (Depakene) 1,375 mg BID@1700,2100 PO Last administered on at 22:01; Start 08/30/17 at 17:00; Stop 09/21/17 at 10:45; Status DC Valproic Acid (Depakene) 1,250 mg BID@0900,1200 PO Last administered on at 08:51; Start 08/30/17 at 09:15; Stop 09/21/17 at 10:45; Status DC Multi-Ingredient Ointment (Analgesic [place]) 1 carlee PRN QID PRN TP MUSCLE PAIN Last administered on 09/01/17at 19:35; Start 09/01/17 at 19:15; Stop 09/21/17 at 10:45; Status DC Mirtazapine (Remeron) 15 mg QHS PO Last administered on 09/20/17at 22:01; Start 09/11/17 at 21:00; Stop 09/21/17 at 10:45; Status DC Trazodone HCl (Desyrel) 50 mg PRN QHS PRN PO INSOMNIA, MAY REPEAT X1 Last administered on 09/11/17at 19:58; Start 09/11/17 at 19:45; Stop 09/15/17 at 18:46 ; Status DC Trazodone HCl (Desyrel) 25 mg TID@0900,1300,1700 PO Last administered on at 12:07; Start 09/16/17 at 09:00; Stop 09/16/17 at 12:21; Status DC Trazodone HCl (Desyrel) 12.5 mg TID@0900,1300,1700 PO Last administered on 09/17at 17:20; Start 09/16/17 at 13:00; Stop 09/17/17 at 19:19; Status DC Trazodone HCl (Desyrel) 12.5 mg BID@0900,1700 PO Last administered on at 07:48; Start 09/18/17 at 09:00; Stop 09/18/17 at 15:38; Status DC Active Scripts Active Reported Quetiapine Fumarate 50 Mg Tablet 50 Mg PO TID@0900,1300,1700 Phenytoin Sodium Extended 300 Mg Capsule 300 Mg PO HS Depakene (Valproate Sodium) 250 Mg/5 Ml Solution 1,375 Mg PO BID@1700,2100 Depakene (Valproate Sodium) 250 Mg/5 Ml Solution 1,250 Mg PO BID@0900,1200 Hydroxyzine Hcl 50 Mg Tablet 50 Mg PO PRN QHS PRN Buspirone Hcl 5 Mg Tablet 5 Mg PO TID@0900,1300,1700 Zoloft (Sertraline Hcl) 50 Mg Tablet 50 Mg PO DAILY Mirtazapine 15 Mg Tablet 15 Mg PO QHS Analgesic [place] (Methyl Salicylate/Menthol) 28 Gm Oint...g. 1 Carlee TP PRN QID PRN Milk Of Magnesia (Magnesium Hydroxide) 400 Mg/5 Ml Oral.susp 2,400 Mg PO PRN DAILY PRN Mag-Al Plus Xs Suspension (Mag Hydrox/Al Hydrox/Simeth) 30 Ml Oral.susp 30 Ml PO PRN AFTMEALHC PRN Selenium Sulfide 180 Ml Shampoo 1 Carlee TP TWICE WEEKLY Lorazepam 1 Mg Tablet 1 Mg PO PRN BID PRN Acetaminophen 500 Mg Tablet 500 Mg PO PRN Q4HRS PRN Atorvastatin Calcium 10 Mg Tablet 10 Mg PO QHS Clozapine 200 Mg Tablet 500 Mg PO QHS Clozapine 200 Mg Tablet 200 Mg PO DAILY Detrol La (Tolterodine Tartrate) 2 Mg Cap.er.24h 2 Mg PO BID Miralax (Polyethylene Glycol 3350) 119 Gm Powder 17 Gm PO DAILY Levothyroxine Sodium 200 Mcg Tablet 200 Mcg PO DAILY06 I have reviewed the current psychotropics carefully including drug interactions. Risk benefit ratio favors no change other than as noted in my dictated progress note. Diagnosis: Problems: (1) Dementia in Alzheimer's disease with delusions (2) Impulse control disorder (3) Schizoaffective disorder, chronic condition with acute exacerbation (4) Borderline intellectual disability STEVEN AYALA MD September 21, 2017 21:27
--- NOTE | 2017-09-22 02:49 | PN ---
DATE: 09/20/2017 This is a late entry for 09/20/2017 covers elements not covered in my initial note of 09/20/2017. SUBJECTIVE: I met with the patient in the evening. The patient slept 6-1/4 hours previous evening, anxious, restless. He threw up around lunchtime. Nursing staff encouraged him to eat his dinner slowly and then he does better. REVIEW OF SYSTEMS: No CV, , pulmonary, eye, ENT system symptoms on review. Reliability poor. MENTAL STATUS EXAM: Oriented to himself and situation. Speech coherent, pressured, less so than before. Abstraction fair, computation impaired, language function intact. Attention span short. Intellect consistent with his intellectual disability. No suicidal or homicidal ideation. LABORATORY DATA: Reviewed. IMPRESSION: Unchanged from initial note. PLAN: Continue current psychotropics mentioned in my initial note. Psychotic symptoms appear much improved. MAN Suleman AYALA MD DR: ADALBERTO/garry JOB#: [id number] / [id number]
--- NOTE | 2017-09-22 20:33 | DS ---
DATE OF DISCHARGE: 09/21/2017 This is a late entry, 09/21/2017, covers the elements not covered in my initial note, 09/21/2017. REASON FOR ADMISSION: Please refer to the admission history for details. Briefly, the patient is a 52-year-old male referred to us from [facility] on account of increasing psychotic symptoms, refusing to eat, 7-pound weight loss in a week, being extremely delusional, having auditory or visual hallucinations, and behaviors were unmanageable, disruptive at the [facility], having failed outpatient psychiatric interventions. He is referred for inpatient stabilization. SIGNIFICANT FINDINGS AND CLINICAL COURSE: Following admission, the patient was seen daily individually by myself from a psychiatric standpoint, medical followup per Dr. Geller/Dr. Case. The patient was extremely psychotic, hyperverbal, moving his head from side to side, believing someone was slapping him as part of his hallucinations, which were auditory, visual, and tactile. He was extremely erratic in his mood, disruptive, loud, and obsessive. Adjustments were made in his psychotropics and he seemed to respond to a combination of Seroquel 50 mg 3 times a day, Depakene 1250 mg b.i.d. and 1375 mg b.i.d., the former at 0900, 1200, the latter at 1700, and 2100. His valproic acid level despite the high dosages was 48, slightly subtherapeutic, but he was unable to tolerate any further dosage increase. Additionally, a pharmacy consult determined that the trazodone could be contributing to lowering of his blood level despite the high dosages together with the other psychotropics and these were adjusted accordingly to compensate for this. He is also on clozapine 200 mg in the morning and 500 mg at night and was tolerating well on the weekly CBC, absolute neutrophil counts. Ativan was 1 mg b.i.d. p.r.n., Dilantin 300 mg at bedtime for his seizure disorder, Zoloft 50 mg a day, BuSpar 5 mg 3 times a day, Remeron 15 mg at bedtime, hydroxyzine p.r.n. prior to discharge on 09/21/2017. REVIEW OF SYSTEMS: No CV, , pulmonary, eye, ENT system symptoms on review. Reliability varies, less pressure on his speech, and he appeared much less psychotic. MENTAL STATUS EXAM: Oriented to himself and situation. Speech, less pressured. Abstraction fair, computation impaired, language function intact, attention span short. Mood and affect remains labile, but improved. No suicidal or homicidal ideation prior to discharge. CONDITION AT DISCHARGE: Improved. FINAL DIAGNOSES: Schizoaffective disorder, bipolar type, mixed with psychotic features, intellectual disability, anxiety disorder, unspecified; impulse control disorder, unspecified. Rest unchanged from admission. DISCHARGE MEDICATIONS: Please refer to the [facility]. Outpatient psychiatric and medical followup at the [facility]. Time for discharge day management greater than 30 minutes and he should have CBC, absolute neutrophil counts weekly while he is on Clozaril and his Depakote level, Dilantin level should be followed as well along with liver profiles. MAN Suleman AYALA MD DR: ADALBERTO/garry JOB#: [id number] / [id number]
== END 2017-09-21 10:20 | disposition short-term general hospital (02) | DRG 885 ==
LOC: ER 19:01 → GEROPSY 21:31
PROVIDERS: ADMIT Psychiatry & Neurology Psychiatry; ATTEND Psychiatry & Neurology Psychiatry
DX: F25.0 Schizoaffective disorder, bipolar type (principal); I95.9 Hypotension, unspecified; G30.9 Alzheimer's disease, unspecified; F70 Mild intellectual disabilities; F05 Delirium due to known physiological condition; F02.80 Dementia in other diseases classified elsewhere, unspecified severity, without behavioral disturbance, psychotic disturbance, mood disturbance, and anxiety; G40.909 Epilepsy, unspecified, not intractable, without status epilepticus; E03.9 Hypothyroidism, unspecified; F41.9 Anxiety disorder, unspecified; K59.09 Other constipation; R10.9 Unspecified abdominal pain; R45.86 Emotional lability; R63.4 Abnormal weight loss; E78.5 Hyperlipidemia, unspecified; F42.9 Obsessive-compulsive disorder, unspecified; F63.9 Impulse disorder, unspecified; I10 Essential (primary) hypertension; K21.9 Gastro-esophageal reflux disease without esophagitis; Z79.899 Other long term (current) drug therapy; Z88.8 Allergy status to other drugs, medicaments and biological substances; Z91.018 Allergy to other foods
CPT/HCPCS: 36415; 70450; 71045; 74018; 74177; 80053; 80061; 80164; 80185; 80307; 81001; 82306; 82607; 83036; 83540; 83550; 83605; 83735; 84436; 84443; 84480; 85025; 85027; 86593; 93005; Q9967; 92610; 99285-25; G0479

== ENCOUNTER 2020-06-15 15:45 | Inpatient (IN) | payer MEDICARE, MEDICAID ==
[~2020-06-15] VITALS: Ht 167.6 cm; Wt 72.5 kg
[~2020-06-15 15:45] MED LIST: ACET500T68 PO; ARIP400S IM; ARIP5TAB13 PO; ATOR10TA60 PO; BUSP5TAB PO; CHOL10003 PO; CLOZ200T PO; DIVA500T4 PO; FENO160T PO; HYDR50TA PO; IBUP400T18 PO; LEVO200T5 PO; LORA-254 PO; LORA2VIA IM; MAG30ORA2 PO; MAGN400O7 PO; METH10TA10 PO; METH28OI2 TP; MIRT15TA3 PO; MULT1TAB90 PO; OLAN10TA9 PO; OLAN20TA3 PO; OLAN5TAB3 PO; OLAN5TAB9 PO; OMEG-33 PO; PANT40TA6 PO; PARO20TA3 PO; PHEN125O4 PO; PHEN300C4 PO; POLY119P4 PO; QUET100T4 PO; QUET50TA PO; RISP25DI IM; SELE180S9 TP; SERT50TA PO; SODI100G DT; TOLT2CAP PO; VALP250S PO
[2020-06-15 20:29] VITALS: BP 120/72
--- NOTE | 2020-06-15 21:08 | PDOC ---
Exam Note: Chad Note: Please also refer to the separate dictated note~for this date of service dictated separately.~Patient seen individually. Discussed the patient with Nursing staff reviewed the chart.~Reviewed interim history and current functioning. Reviewed vital signs,~Labs/ Radiology~and current medications noted below. Continue current treatment with the changes noted in the dictated addendum note Current Medications: I have reviewed the current psychotropics carefully including drug interactions. Risk benefit ratio favors no change other than as noted in my dictated progress note. Diagnosis: Problems: (1) Dementia in Alzheimer's disease with delusions (2) Impulse control disorder (3) Schizoaffective disorder, chronic condition with acute exacerbation (4) Borderline intellectual disability STEVEN AYALA MD Jun 15, 2020 21:08
[2020-06-15] MEDS ORDERED: MAGNESIUM HYDROXIDE 2,400 MG/30 ML ORAL.SUSP. PO PRN (21:15)
[2020-06-15] MEDS ORDERED: MAG HYDROX/AL HYDROX/SIMETH 30 ML ORAL.SUSP PO PRN (21:15)
[2020-06-15] MEDS ORDERED: PHEN100C PO (21:25)
[2020-06-15] MEDS ORDERED: LACT10SO26 PO (21:25)
[2020-06-15] MEDS ORDERED: MULT-445 PO (21:25)
[2020-06-15] MEDS ORDERED: SUCR1TAB35 PO (21:25)
[2020-06-15] MEDS ORDERED: MIRA50TA PO (21:25)
[2020-06-15] MEDS ORDERED: QUET300T7 PO (21:25)
[2020-06-15] MEDS ORDERED: LEVE500T56 PO (21:25)
[2020-06-15] MEDS ORDERED: PRAZ1CAP PO (21:25)
[2020-06-15] MEDS ORDERED: FENO145T32 PO (21:25)
[2020-06-15] MEDS ORDERED: LOPE2TAB27 PO (21:25)
[2020-06-15] MEDS ORDERED: OMEP20TA63 PO (21:25)
[2020-06-15] MEDS ORDERED: CLON0.5T PO (21:25)
[2020-06-15] MEDS ORDERED: OLAN10TA5 PO (21:25)
[2020-06-15] MEDS ORDERED: TIAG4TAB PO (21:25)
[2020-06-15] MEDS: clonazePAM 0.5 MG TABLET PO SCH (21:58)
[2020-06-15] MEDS: levETIRAcetam 500 MG TABLET PO SCH (21:58)
[2020-06-15] MEDS: hydrOXYzine PAMOATE 25 MG CAPSULE PO SCH (21:58)
[2020-06-15] MEDS: cloZAPine 100 MG TABLET PO SCH (21:58)
[2020-06-15] MEDS: FENOFIBRATE NANOCRYSTALLIZED 145 MG TABLET PO SCH (21:58)
[2020-06-15] MEDS: SUCRALFATE 1 GM TABLET. PO SCH (21:58)
[2020-06-15] MEDS: PRAZOSIN 1 MG CAPSULE. PO SCH (21:59)
[2020-06-15] MEDS: ATORVASTATIN CALCIUM 10 MG TABLET. PO SCH (21:59)
[2020-06-15] MEDS: MIRABEGRON 25 MG TAB.ER.24H PO SCH (22:00)
[2020-06-15] MEDS ORDERED: LOPERAMIDE 2 MG CAPSULE PO PRN (22:00)
[2020-06-15] MEDS: PHENYTOIN SODIUM EXTENDED 100 MG CAPSULE PO SCH (22:00)
--- NOTE | 2020-06-15 22:00 | NUR ---
Admission Note with Justification for Admission to [facility] Patient admitted to [facility] for protective oversight for emergency stabilization of acute psychiatric crisis. Pt admitted from: [facility] Mode of arrival: Secure Transport Accompanied By: Secure Transport Precipitating behaviors that initiated intake and admission: labile mood, crying, throwing things, yelling, agitated Description of failure of out patient attempts at stabilization in previous setting list behavior and medication trials: medication, out pt psychiatry Behaviors and assessment findings upon admission: A/O name, . Pt with labile mood. Repetitive and irritable. Compliant with medications. No agitation Plan: Admit for protective oversight for adjustment and stabilization of medications, behaviors and mood. Intense treatment regimen including groups, medication adjustments, therapy, consistent regimen for ADL's, self care, and sleep hygiene. Daily monitoring by Inpatient staff, Psychiatry, and Medical Physician.
[2020-06-15 22:07] LABS: BACTERIA,URINE 0 /HPF (0-FEW); BILIRUBIN,URINE NEG (NEG); CLARITY,URINE CLEAR; COLOR,URINE YELLOW; GLUCOSE,URINE NEG (NEG); NITRITE,URINE NEG (NEG); RBC,URINE 0 /HPF (0-2); UROBILINOGEN,URINE 0.2 mg/dL (0.2 mg/dL); WBC,URINE 0 /HPF (0-4)
[2020-06-15] MEDS ORDERED: METHYL SALICYLATE/MENTHOL TOPICAL OINTMENT 57GM TUBE. TP PRN (22:15)
[2020-06-16] MEDS: LEVOTHYROXINE 125 MCG TABLET PO SCH (05:06)
[2020-06-16 06:43] VITALS: BP 91/63
[2020-06-16 06:57] LABS: BASO # 0.1 x10^3/uL (0.0-0.2); BASO % 2 % (0-3); EOS # 0.5 x10^3/uL (0.0-0.7); EOS % 6 % (0-3); HEMATOCRIT 40.2 % (39.0-53.0); HEMOGLOBIN 13.3 g/dL (13.0-17.5); LYMPH # 2.2 x10^3/uL (1.0-4.8); LYMPH % 29 % (24-48); MEAN CORPUSCULAR HEMOGLOBIN 30 pg (25-35); MEAN CORPUSCULAR HGB CONC 33 g/dL (31-37); MEAN CORPUSCULAR VOLUME 89 fL (79-100); MONO # 0.6 x10^3/uL (0.0-1.1); MONO % 8 % (0-9); NEUT # 4.2 x10^3uL (1.8-7.7); NEUT % 55 % (31-73); PLATELET COUNT 298 x10^3/uL (140-400); RED CELL DISTRIBUTION WIDTH 14.4 % (11.5-14.5); WHITE BLOOD COUNT 7.6 x10^3/uL (4.0-11.0)
[2020-06-16 07:11] LABS: ALBUMIN 3.3 g/dL (3.4-5.0); ALBUMIN/GLOBULIN RATIO 0.8 (1.0-1.7); ALK PHOS 72 U/L (46-116); ALT (SGPT) 22 U/L (16-63); ANION GAP 9 (6-14); AST (SGOT) 21 U/L (15-37); BLOOD UREA NITROGEN 16 mg/dL (8-26); BUN/CREATININE RATIO 16 (6-20); CALCIUM 8.7 mg/dL (8.5-10.1); CARBON DIOXIDE 25 mmol/L (21-32); CHLORIDE 104 mmol/L (98-107); GLUCOSE 114 mg/dL (70-99); MAGNESIUM 1.9 mg/dL (1.8-2.4); PHENY 18.1 mcg/mL (10.0-20.0); POTASSIUM 3.8 mmol/L (3.5-5.1); SODIUM 138 mmol/L (136-145); TOTAL BILIRUBIN 0.2 mg/dL (0.2-1.0); TOTAL PROTEIN 7.4 g/dL (6.4-8.2)
[2020-06-16] MEDS ORDERED: TIAGABINE HCL 4 MG PO SCH (09:00)
[2020-06-16] MEDS: MULTIVITAMIN with MINERAL TABLET. PO SCH (10:53)
[2020-06-16] MEDS: LACTULOSE 20 GM/30 ML SOLUTION. PO SCH ×3 (10:53→20:44)
[2020-06-16] MEDS: clonazePAM 0.5 MG TABLET PO SCH ×2 (10:53→20:44)
[2020-06-16] MEDS: hydrOXYzine PAMOATE 25 MG CAPSULE PO SCH ×2 (10:53→20:41)
[2020-06-16] MEDS: SERTRALINE 50 MG TABLET. PO SCH (10:53)
[2020-06-16] MEDS: PHENYTOIN SODIUM EXTENDED 100 MG CAPSULE PO SCH ×2 (10:54→20:40)
[2020-06-16] MEDS: levETIRAcetam 500 MG TABLET PO SCH ×2 (10:54→20:41)
[2020-06-16] MEDS: cloZAPine 100 MG TABLET PO SCH ×2 (10:54→20:40)
[2020-06-16] MEDS: QUEtiapine 50 MG TABLET. PO SCH ×2 (10:54→13:18)
[2020-06-16] MEDS: PANTOPRAZOLE 40 MG TABLET. PO SCH (10:56)
[2020-06-16 11:23] LABS: THYROID STIM HORMONE (TSH) 4.24 uIU/mL (0.358-3.740)
--- NOTE | 2020-06-16 11:37 | NUR ---
Pt has had a prolonged episode of high anxiety, agitation and disruptive behaviors. Dr Gabriel collins and the following order was given: PRN Zyprexa 5 mg PO for anxiety/agitation NTE 20 mg/24H. Order read back and verified. First dose of Zyprexa 5 mg administered with difficultly. Pt made multiple attempts to bargain his care and medication administration with nurses by stating he would only take the medication if his bed would be adjusted to his satisfaction. Of note, this is a topic/hyperfixation which has been occurring for the past few hours and staff is unable to adequately meet his needs to his particular liking. It has taken multiple staff members multiple attempts to persuade pt to take PRN medication but there was success in the end.
[2020-06-16] MEDS: LORazepam 1 MG TABLET PO PRN (13:17)
--- NOTE | 2020-06-16 13:17 | NUR ---
Pt's disruptive behaviors have continued and PRN Ativan was warranted. Pt refused to take his medication, again bargaining and attempting to negotiate medication compliance on whether the behaviors of nursing staff are meeting his specific needs based upon ongoing ruminations. Once again it took multiple staff members multiple attempts for pt to agree to medication compliance.
[2020-06-16] MEDS: TIAGABINE 4 MG PO SCH ×2 (13:18→20:45)
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
[2020-06-16 15:54] VITALS: BP 116/72
[2020-06-16 19:10] LABS: THYROXINE 4.3 ug/dL (4.5-12.0)
--- NOTE | 2020-06-16 20:11 | CONS ---
DATE OF CONSULTATION: 06/16/2020 ATTENDING PHYSICIAN: Dr. Rios and ____. REASON FOR CONSULTATION: We are asked to see this patient for medical consultation. HISTORY OF PRESENT ILLNESS: The patient is a 55-year-old [facility] resident with a longstanding schizoaffective disorder. We have seen him before couple of years ago. He has a longstanding schizophrenia. He has been acting up lately. Mood has been labile, hallucinating, throwing things at staff, being verbal and physically outburst, demanding of staff and agitated. PAST PSYCHIATRIC HISTORY: Significant for schizophrenia, longstanding. He lives in a [facility]. He also has hypothyroidism, hyperlipidemia, gastroesophageal reflux disease, developmental delay, constipation and idiopathic seizure disorder. DRUG ALLERGIES: According to the list include HALDOL AND KETCHUP; I AM NOT SURE WHAT THE EXACT REACTION IS. CURRENT MEDICATIONS: Include Tylenol, aluminum hydroxide, Lipitor, Klonopin, clozapine, TriCor, hydroxyzine, lactulose, Keppra, Synthroid, loperamide, lorazepam, magnesium hydroxide, Myrbetriq, multi-ingredient balm, multivitamin, Zyprexa, Zydis, Protonix, Dilantin, Minipress, Seroquel, Zoloft, and Carafate. SOCIAL HISTORY: He is a nonsmoker, nondrinker. FAMILY HISTORY: Unfortunately is unobtainable. He lives in a facility near [place]. Dr. Giles is his primary care doctor. REVIEW OF SYSTEMS: Basically unobtainable due to the patient's condition. PHYSICAL EXAMINATION: GENERAL: When I saw him, this is a pleasant gentleman in no acute distress. INITIAL VITAL SIGNS: Showed blood pressure 120/72 mmHg, pulse is 81 and regular, temperature 98.4 degrees Fahrenheit, and pulse oximetry was 97% on room air. HEENT: Head is without trauma. Pupils are reactive. Sclerae are nonicteric. Oropharynx is clear. NECK: Supple, no bruits or stridor. LUNGS: Good breath sounds. CARDIOVASCULAR: Showed regular heart tones. No gallops. ABDOMEN: Soft, no guarding or rebound tenderness. EXTREMITIES: Without edema. I did not assess his gait at this time. SKIN: Warm and dry. PERTINENT LABORATORY STUDIES: The hemoglobin is maintained at 13.3 g/dL with white count of 7600. Electrolytes are within normal range. Potassium is 3.8 mEq. BUN 16 and creatinine 1.0 mg/dL respectively. Nonfasting blood sugar 114. Toxicology screen showed a therapeutic level of Dilantin at 18. Urinalysis was otherwise clear. ASSESSMENT: This 55-year-old gentleman has: 1. Schizoaffective disorder. 2. Developmental delay. 3. Hypothyroidism, on replacement. 4. Idiopathic seizure disorder. RECOMMENDATIONS: 1. I have reviewed his home meds and these should be continued at the same dosage. 2. He is stable from a medical standpoint. 3. We should gladly follow along during his inpatient course. Thank you again for asking me to see this patient for medical clearance. TEREZA DUQUE MD DR: CYNTHIA/garry JOB#: [id number] / [id number]
[2020-06-16] MEDS: PRAZOSIN 1 MG CAPSULE. PO SCH (20:40)
[2020-06-16] MEDS: FENOFIBRATE NANOCRYSTALLIZED 145 MG TABLET PO SCH (20:40)
[2020-06-16] MEDS: SUCRALFATE 1 GM TABLET. PO SCH (20:40)
[2020-06-16] MEDS: ATORVASTATIN CALCIUM 10 MG TABLET. PO SCH (20:41)
[2020-06-16] MEDS: QUEtiapine 100 MG TABLET. PO SCH (20:44)
[2020-06-16] MEDS: MIRABEGRON 25 MG TAB.ER.24H PO SCH (20:45)
--- NOTE | 2020-06-16 20:57 | PDOC ---
Exam Note: Chad Note: Please also refer to the separate dictated note~for this date of service dictated separately.~Patient seen individually. Discussed the patient with Nursing staff reviewed the chart.~Reviewed interim history and current functioning. Reviewed vital signs,~Labs/ Radiology~and current medications noted below. Continue current treatment with the changes noted in the dictated addendum note Assessment: Vital Signs/I&O: Vital Signs Date Time Temp Pulse Resp B/P (MAP) Pulse Ox O2 Delivery O2 Flow Rate FiO2 06/16/20 20:40 90 116/72 06/16/20 15:54 96.6 16 97 06/15/20 20:29 Room Air I & O 06/15/20 06/15/20 06/16/20 15:00 23:00 07:00 Intake Total 360 ml Balance 360 ml Labs: Laboratory Tests Test 06/15/20 21:15 06/16/20 06:24 Urine Collection Type Unknown Urine Color Yellow Urine Clarity Clear Urine pH 6.5 Urine Specific [place] 1.015 Urine Protein Neg (NEG-TRACE) Urine Glucose (UA) Neg mg/dL (NEG) Urine Ketones (Stick) Neg mg/dL (NEG) Urine Blood Neg (NEG) Urine Nitrite Neg (NEG) Urine Bilirubin Neg (NEG) Urine Urobilinogen Dipstick 0.2 mg/dL (0.2 mg/dL) Urine Leukocyte Esterase Neg (NEG) Urine RBC 0 /HPF (0-2) Urine WBC 0 /HPF (0-4) Urine Squamous Epithelial Cells None /LPF Urine Bacteria 0 /HPF (0-FEW) White Blood Count 7.6 x10^3/uL (4.0-11.0) Red Blood Count 4.50 x10^6/uL (4.30-5.70) Hemoglobin 13.3 g/dL (13.0-17.5) Hematocrit 40.2 % (39.0-53.0) Mean Corpuscular Volume 89 fL (79-100) Mean Corpuscular Hemoglobin 30 pg (25-35) Mean Corpuscular Hemoglobin Concent 33 g/dL (31-37) Red Cell Distribution Width 14.4 % (11.5-14.5) Platelet Count 298 x10^3/uL (140-400) Neutrophils (%) (Auto) 55 % (31-73) Lymphocytes (%) (Auto) 29 % (24-48) Monocytes (%) (Auto) 8 % (0-9) Eosinophils (%) (Auto) 6 % (0-3) H Basophils (%) (Auto) 2 % (0-3) Neutrophils # (Auto) 4.2 x10^3uL (1.8-7.7) Lymphocytes # (Auto) 2.2 x10^3/uL (1.0-4.8) Monocytes # (Auto) 0.6 x10^3/uL (0.0-1.1) Eosinophils # (Auto) 0.5 x10^3/uL (0.0-0.7) Basophils # (Auto) 0.1 x10^3/uL (0.0-0.2) D-Dimer (Hortencia) 0.29 mg/L (0.00-0.50) Sodium Level 138 mmol/L (136-145) Potassium Level 3.8 mmol/L (3.5-5.1) Chloride Level 104 mmol/L (98-107) Carbon Dioxide Level 25 mmol/L (21-32) Anion Gap 9 (6-14) Blood Urea Nitrogen 16 mg/dL (8-26) Creatinine 1.0 mg/dL (0.7-1.3) Estimated GFR (Cockcroft-Gault) 77.0 BUN/Creatinine Ratio 16 (6-20) Glucose Level 114 mg/dL (70-99) H Calcium Level 8.7 mg/dL (8.5-10.1) Magnesium Level 1.9 mg/dL (1.8-2.4) Iron Level 74 ug/dL (65-175) Total Iron Binding Capacity 350 ug/dL (250-450) Iron Saturation 21 % (15-34) Total Bilirubin 0.2 mg/dL (0.2-1.0) Aspartate Amino Transferase (AST) 21 U/L (15-37) Alanine Aminotransferase (ALT) 22 U/L (16-63) Alkaline Phosphatase 72 U/L (46-116) Total Protein 7.4 g/dL (6.4-8.2) Albumin 3.3 g/dL (3.4-5.0) L Albumin/Globulin Ratio 0.8 (1.0-1.7) L Triglycerides Level 175 mg/dL (0-150) H Cholesterol Level 151 mg/dL (0-200) LDL Cholesterol, Calculated 84 mg/dL (0-100) VLDL Cholesterol, Calculated 35 mg/dL (0-40) Non-HDL Cholesterol Calculated 119 mg/dL (0-129) HDL Cholesterol 32 mg/dL (40-60) L Cholesterol/HDL Ratio 4.0 Thyroid Stimulating Hormone (TSH) 4.240 uIU/mL (0.358-3.740) Thyroxine (T4) 4.3 ug/dL (4.5-12.0) L Total Triiodothyronine (TT3) 78 ng/dL (71-180) Phenytoin (Dilantin) Level 18.1 mcg/mL (10.0-20.0) Phenytoin Last Dose Date 06/15/20 Phenytoin Last Dose Time 2100 Current Medications: Meds: Current Medications Medications (Trade) Dose Ordered Sig/Edenilson Route PRN Reason Start Time Stop Time Status Last Admin Dose Admin Atorvastatin Calcium (Lipitor) 40 mg QHS PO 06/15/20 22:00 06/16/20 20:41 Clonazepam (KlonoPIN) 0.5 mg BID PO 06/15/20 22:00 06/16/20 20:44 Fenofibrate (Tricor) 145 mg QHS PO 06/15/20 22:00 06/16/20 20:40 Levetiracetam (Keppra) 500 mg BID PO 06/15/20 22:00 06/16/20 20:41 Lorazepam (Ativan) 1 mg PRN BID PRN PO ANXIETY / AGITATION 06/15/20 21:15 06/16/20 13:17 Olanzapine (ZyPREXA ZYDIS) 10 mg BID PO 06/15/20 22:00 06/16/20 20:40 Phenytoin Sodium (Dilantin) 100 mg DAILY PO 06/16/20 09:00 06/16/20 10:54 Prazosin HCl (Minipress) 1 mg QHS PO 06/15/20 22:00 06/16/20 20:40 Quetiapine Fumarate (SEROquel) 50 mg BID94 PO 06/16/20 09:00 06/16/20 13:18 Sertraline HCl (Zoloft) 50 mg DAILY PO 06/16/20 09:00 06/16/20 10:53 Sucralfate (Carafate) 1 gm HS PO 06/15/20 22:00 06/16/20 20:40 Clozapine (Clozaril) 200 mg DAILY PO 06/16/20 09:00 06/16/20 10:54 Clozapine (Clozaril) 600 mg QHS PO 06/15/20 22:00 06/16/20 20:40 Hydroxyzine Pamoate (Vistaril) 25 mg BID PO 06/15/20 22:00 06/16/20 20:41 Lactulose (Lactulose) 20 gm TID PO 06/16/20 09:00 06/16/20 20:44 Levothyroxine Sodium (Synthroid) 125 mcg DAILY06 PO 06/16/20 06:00 06/16/20 05:06 Mirabegron (Myrbetriq) 50 mg QHS PO 06/15/20 22:00 06/16/20 20:45 Multivitamins/ Calcium (Thera-M Plus) 1 tab DAILY PO 06/16/20 09:00 06/16/20 10:53 Pantoprazole Sodium (Protonix) 40 mg DAILYAC PO 06/16/20 07:30 06/16/20 10:56 Phenytoin Sodium (Dilantin) 200 mg HS PO 06/15/20 22:00 06/16/20 20:40 Olanzapine (ZyPREXA ZYDIS) 5 mg PRN Q2HR PRN PO PSYCHOSIS 06/16/20 11:30 06/16/20 11:37 Tiagabine HCl (Gabitril) 4 mg TID PO 06/16/20 14:00 06/16/20 20:45 Quetiapine Fumarate (SEROquel) 600 mg QHS PO 06/16/20 21:00 06/16/20 20:44 Divalproex Sodium (Depakote Er) 500 mg HS PO 06/16/20 21:00 06/16/20 20:44 I have reviewed the current psychotropics carefully including drug interactions. Risk benefit ratio favors no change other than as noted in my dictated progress note. Diagnosis: Problems: (1) Schizoaffective disorder, chronic condition with acute exacerbation (2) Impulse control disorder (3) Borderline intellectual disability STEVEN AYALA MD Jun 16, 2020 20:57
[2020-06-16] MEDS ORDERED: QUETIAPINE FUMARATE 600 MG PO SCH (21:00)
[2020-06-16] MEDS ORDERED: DIVALPROEX ER 500 MG TAB.ER.24H PO SCH (21:00)
--- NOTE | 2020-06-16 21:40 | HP ---
ADMIT DATE: 06/15/2020 PSYCHIATRIC ADMISSION HISTORY/EVALUATION This late entry date of service 06/15/2020 covers the elements not covered in my initial note of 06/15/2020. SUBJECTIVE: I met with the patient in the evening of 06/15/2020 shortly after he arrived on the unit. I met him on telehealth visit. IDENTIFYING DATA: The patient is a 55-year-old male, who is referred back to us from [facility], which is a level 2 psychiatric facility by his primary care physician/psychiatrist, Dr. Damián Dee on account of an acute exacerbation of schizoaffective disorder, bipolar type with psychotic features within the context of his mild intellectual disability. The patient had increasing agitation, yelling, screaming, physical aggression, throwing things, agitated, and throwing belongings around the facility. Behaviors have been deemed dangerous, unmanageable, had failed outpatient psychiatric interventions at the [facility] and referred for inpatient psychiatric stabilization. CHIEF COMPLAINT: The patient was extremely loud, disruptive even as I met with him shortly after he arrived on the unit. "I don't care." HISTORY OF PRESENT ILLNESS: The patient has a long history of schizoaffective disorder, bipolar type. He has been residing at the above facility for some time, recently having increased psychotic symptoms, agitation, aggression, sleep and appetite changes, marked paranoia. Behaviors have been deemed dangerous as noted above. No active suicidal or homicidal ideation. PAST PSYCHIATRIC HISTORY: As above. MEDICAL HISTORY: Positive for GERD, hypothyroidism, hyperlipidemia, seizure disorder, and hyponatremia. ACCU-CHEKS: None. CODE STATUS: Full code. ALLERGIES: HALDOL AND TOMATOES. DIET: Regular. Takes medications crushed. Ambulates ad-isaiah. CURRENT PSYCHOTROPICS: Clozaril 200 mg a.m. and 600 mg at bedtime, Ativan 1 mg b.i.d. p.r.n., Dilantin 100 mg a.m. and 200 mg at bedtime and at the time of this dictation, phenytoin level is 18.1 therapeutic, Keppra 500 mg b.i.d., Klonopin 0.5 mg b.i.d., Seroquel 50 mg b.i.d., 600 mg at bedtime, Vistaril 25 mg b.i.d., Zoloft 50 mg daily, and Zyprexa 10 mg b.i.d. FAMILY HISTORY: Noncontributory. SOCIAL HISTORY: No alcohol, drug abuse, physical, sexual or elder abuse history is noted. He is not known to be a perpetrator. REACTION TO HOSPITALIZATION: The patient accepting this. ASSETS: Supportive, living at the level 2 [facility] facility. MENTAL STATUS EXAMINATION: The patient was seen individually shortly after he arrived on the unit. He knew he had come here just within the previous one hour or so. Speech is rapid, loud, extremely disruptive, yelling at times. Abstraction fair, computation impaired, language function intact, attention span short. Mood and affect, lability is marked. He is extremely inattentive, paranoid, delusional, suspicious, disruptive. IMPRESSION: Schizoaffective disorder, bipolar type, mixed with psychotic features; anxiety disorder, unspecified; impulse control disorder, unspecified; intellectual disability. Rest diagnoses as above. PLAN: Admit to Geropsychiatry Unit at [facility]. I will see the patient daily individually from a psychiatric standpoint. Medical followup with Dr. Case/Dr. Angulo. Continue the patient on his current psychotropics. I have been called as an emergency earlier in the day on 06/16/2020 and we added Zyprexa p.r.n. in addition to his scheduled Zyprexa with a maximum daily dosage of 30 mg. Check CBC, absolute neutrophil counts since he is on the Clozaril. We will consider starting Depakote as a mood stabilizer. Keppra may be adequate for his seizures, but probably of limited efficacy for his schizoaffective disorder, bipolar type and similar response with Dilantin, even though this may have a slightly greater efficacy than Keppra. Depakote may be a more appropriate choice since he is already on a rather extremely high dosages of his atypical antipsychotics. We may have to avoid some of the typical antipsychotic since he is ALLERGIC TO HALDOL, but we may consider Prolixin as an option. ESTIMATED LENGTH OF STAY: 10-12 days. DISPOSITION: Plans back to snf when stable. STEVEN AYALA MD DR: ADALBERTO/garry JOB#: [id number] / [id number]
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
[2020-06-17] MEDS: LORazepam 1 MG TABLET PO PRN ×2 (00:11→10:47)
[2020-06-17 04:07] LABS: HEMOGLOBIN A1C 5.6 % (4.8-5.6)
[2020-06-17] MEDS: LEVOTHYROXINE 125 MCG TABLET PO SCH (05:11)
[2020-06-17 06:27] VITALS: BP 113/71
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
--- NOTE | 2020-06-17 09:30 | NUR ---
SUMANTH spoke with Rachel at [facility], regarding an update on pt behaviors and how he is doing. Annel reports that staff there are very fond of pt and are hopeful to get his behaviors under control. Their primary concern is that pt has not been physical and would like to make sure that behavior decreases with the right medication changes. SUMANTH explained that pt continues to be combative with staff from time to time; but will be able to update them after treatment team with the discharge goals set.
[2020-06-17] MEDS: PANTOPRAZOLE 40 MG TABLET. PO SCH (10:01)
[2020-06-17] MEDS: MULTIVITAMIN with MINERAL TABLET. PO SCH (10:01)
[2020-06-17] MEDS: levETIRAcetam 500 MG TABLET PO SCH ×2 (10:01→20:45)
[2020-06-17] MEDS: TIAGABINE 4 MG PO SCH ×3 (10:01→20:45)
[2020-06-17] MEDS: SERTRALINE 50 MG TABLET. PO SCH (10:01)
[2020-06-17] MEDS: LACTULOSE 20 GM/30 ML SOLUTION. PO SCH ×3 (10:02→20:45)
[2020-06-17] MEDS: clonazePAM 0.5 MG TABLET PO SCH ×2 (10:02→20:45)
[2020-06-17] MEDS: hydrOXYzine PAMOATE 25 MG CAPSULE PO SCH ×2 (10:02→20:45)
[2020-06-17] MEDS: QUEtiapine 50 MG TABLET. PO SCH ×2 (10:02→15:13)
[2020-06-17] MEDS: cloZAPine 100 MG TABLET PO SCH ×2 (10:02→20:41)
[2020-06-17] MEDS: PHENYTOIN SODIUM EXTENDED 100 MG CAPSULE PO SCH ×2 (10:03→20:42)
--- NOTE | 2020-06-17 10:26 | NUR ---
Pt woke this morning in a calm manner but in short time his hyperfixations and heightened anxieties began. He was once again talking adamantly about his bed being adjusted and having an enema because be believes he is constipated. Bowel sounds are present in all 4 quadrants and he is passing gas. He presents with many somatic complaints regarding his bowels, genitals, legs, head. Attempts at medication administration were once again refused and bargained by pt for his demands and requests to be made, however he was more successfully redirected and was able to take his medications independently. He is absent of SI/HI behaviors. He appears to be experiencing VH/AH in the form of an entity named "Garrett." He has been observed during morning assessment to be whispering to Garrett and according to pt's brother Garrett is the name of one of his hallucinations. Pt is absent of violent behaviors so far during shift. Will pass on to the next shift.
[2020-06-17] MEDS: ACETAMINOPHEN 500 MG TABLET PO PRN (10:47)
--- NOTE | 2020-06-17 10:47 | NUR ---
Pt began to escalate in agitation regarding his bed being adjusted. No matter how much nursing staff attempts to adjust or fix his bed he remains displeased and angry with it. Pt began to yell at nursing staff "You're not giving me what I want!" and increase in behaviors. Pt was subsequently escorted to the quiet hallway in an effort for him to de-escalate and regulate his behaviors and agitation away from his bed. He then began to c/o various pains and somatic issues. PRN Ativan 1 mg PO and PRN Acetaminophen 650 mg PO administered. Pt refused medications, once again debating with nursing staff about taking medications and attempting to rationalize to nurses that he is refusing to take medications because nursing staff aren't doing what he wants (regarding his bed). Pt continued to bargain with his nursing care, stating that he will only take his meds if his unique needs are met to his satisfaction. It took nursing staff nearly 20 minutes to talk to him into agreement to take his medications. During this time he stated that he wanted to in seclusion, that he would just kill himself, and that some of his hallucinations "rape" him. After he agreed to take his medications and they were administered he began to have a conversation with "Garrett." Pt was then escorted back to his room by nursing staff after he gave verbal agreement and confirmation that he would attempt to behave more appropriately.
--- NOTE | 2020-06-17 11:24 | NUR ---
Dr Angulo notified of pt's elevated TSH and decreased T3. No orders given at this time.
--- NOTE | 2020-06-17 12:11 | NUR ---
WEEKLY ACTIVITY THERAPY NOTE Date of Admission: 06/15/20 Date of AT Assessment: TBD Precipitating behaviors that initiated intake and admission: labile mood, crying, throwing things, yelling, agitated Goal aimed:TBD Initial Goal: TBD Weekly progress towards goal: NA Group participation level: Zero Weekly highlights: arrived on unit Behaviors observed: new patient, yelling out, demanding, difficult to redirect Plan: meet/ assess Pt Beneficial adaptations:
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
--- NOTE | 2020-06-17 15:26 | NUR ---
During 1500 medication administration this nurse noticed blood on the bed rails of pt's bed. This nurse asked pt if he was injured or bleeding and he replied, "no." As SUPERVISOR [employer] and this nurse were cleaning the bed rails it was noticed that pt had 3 small cuts on his lips and blood under his fingernails. When asked about his mouth pt stated that he accidentally injured it sometime yesterday (06/16/20). Pt did not inform staff of a potential injury yesterday, nor was any event witnessed by staff where his mouth could have started to bleed. At time of discovery bleeding had ceased.
[2020-06-17 16:40] VITALS: BP 110/68
--- NOTE | 2020-06-17 16:46 | EKG ---
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
--- NOTE | 2020-06-17 16:59 | NUR ---
Pt has been making claims to various staff members that he is havening a "heart attack" and a "seizure." He is absent of signs of either and has been appearing calm and not in distress. Will pass on to the following shift.
--- NOTE | 2020-06-17 18:25 | NUR ---
30 mL of Mylanta administered d/t pt c/o stomach discomfort
[2020-06-17] MEDS: PRAZOSIN 1 MG CAPSULE. PO SCH (20:41)
[2020-06-17] MEDS: ATORVASTATIN CALCIUM 10 MG TABLET. PO SCH (20:41)
[2020-06-17] MEDS: FENOFIBRATE NANOCRYSTALLIZED 145 MG TABLET PO SCH (20:41)
[2020-06-17] MEDS: SUCRALFATE 1 GM TABLET. PO SCH (20:41)
[2020-06-17] MEDS: QUEtiapine 100 MG TABLET. PO SCH (20:42)
[2020-06-17] MEDS: DIVALPROEX 125 MG CAP.SPRINK PO SCH (20:45)
[2020-06-17] MEDS: MIRABEGRON 25 MG TAB.ER.24H PO SCH (20:53)
--- NOTE | 2020-06-17 21:03 | PDOC ---
Exam Note: Chad Note: Please also refer to the separate dictated note~for this date of service dictated separately.~Patient seen individually. Discussed the patient with Nursing staff reviewed the chart.~Reviewed interim history and current functioning. Reviewed vital signs,~Labs/ Radiology~and current medications noted below. Continue current treatment with the changes noted in the dictated addendum note Assessment: Vital Signs/I&O: Vital Signs Date Time Temp Pulse Resp B/P (MAP) Pulse Ox O2 Delivery O2 Flow Rate FiO2 06/17/20 20:41 80 110/68 06/17/20 16:40 97.0 20 96 06/17/20 06:27 Room Air I & O 06/16/20 06/16/20 06/17/20 14:59 22:59 06:59 Intake Total 120 ml 360 ml 120 ml Balance 120 ml 360 ml 120 ml Current Medications: Meds: Current Medications Medications (Trade) Dose Ordered Sig/Edenilson Route PRN Reason Start Time Stop Time Status Last Admin Dose Admin Acetaminophen (Tylenol) 500 mg PRN Q4HRS PRN PO PAIN 06/15/20 21:15 06/17/20 10:47 Atorvastatin Calcium (Lipitor) 40 mg QHS PO 06/15/20 22:00 06/17/20 20:41 Clonazepam (KlonoPIN) 0.5 mg BID PO 06/15/20 22:00 06/17/20 20:45 Fenofibrate (Tricor) 145 mg QHS PO 06/15/20 22:00 06/17/20 20:41 Levetiracetam (Keppra) 500 mg BID PO 06/15/20 22:00 06/17/20 20:45 Lorazepam (Ativan) 1 mg PRN BID PRN PO ANXIETY / AGITATION 06/15/20 21:15 06/17/20 10:47 Al Hydroxide/Mg Hydroxide (Mylanta Plus Xs) 30 ml PRN AFTMEALHC PRN PO DYSPEPSIA 06/15/20 21:15 06/17/20 18:25 Magnesium Hydroxide (Milk Of Magnesia) 2,400 mg PRN DAILY PRN PO CONSTIPATION 06/15/20 21:15 Olanzapine (ZyPREXA ZYDIS) 10 mg BID PO 06/15/20 22:00 06/17/20 20:41 Phenytoin Sodium (Dilantin) 100 mg DAILY PO 06/16/20 09:00 06/17/20 10:03 Prazosin HCl (Minipress) 1 mg QHS PO 06/15/20 22:00 06/17/20 20:41 Quetiapine Fumarate (SEROquel) 50 mg BID94 PO 06/16/20 09:00 06/17/20 15:13 Sertraline HCl (Zoloft) 50 mg DAILY PO 06/16/20 09:00 06/17/20 10:01 Sucralfate (Carafate) 1 gm HS PO 06/15/20 22:00 06/17/20 20:41 Clozapine (Clozaril) 200 mg DAILY PO 06/16/20 09:00 06/17/20 10:02 Clozapine (Clozaril) 600 mg QHS PO 06/15/20 22:00 06/17/20 20:41 Hydroxyzine Pamoate (Vistaril) 25 mg BID PO 06/15/20 22:00 06/17/20 20:45 Lactulose (Lactulose) 20 gm TID PO 06/16/20 09:00 06/17/20 20:45 Levothyroxine Sodium (Synthroid) 125 mcg DAILY06 PO 06/16/20 06:00 06/17/20 05:11 Loperamide HCl (Imodium) 2 mg PRN DAILY PRN PO loose stools 06/15/20 22:00 Multi-Ingredient Ointment (Analgesic May) 1 dennis PRN QID PRN TP MUSCLE PAIN 06/15/20 22:15 Mirabegron (Myrbetriq) 50 mg QHS PO 06/15/20 22:00 06/17/20 20:53 Multivitamins/ Calcium (Thera-M Plus) 1 tab DAILY PO 06/16/20 09:00 06/17/20 10:01 Pantoprazole Sodium (Protonix) 40 mg DAILYAC PO 06/16/20 07:30 06/17/20 10:01 Phenytoin Sodium (Dilantin) 200 mg HS PO 06/15/20 22:00 06/17/20 20:42 Non-Formulary Medication (Quetiapine Fumarate (Seroquel Xr)) 600 mg QHS PO 06/16/20 21:00 06/16/20 17:14 DC Non-Formulary Medication (Tiagabine Hcl (Gabitril)) 4 mg TID PO 06/16/20 09:00 06/16/20 11:26 DC Olanzapine (ZyPREXA ZYDIS) 5 mg PRN Q2HR PRN PO PSYCHOSIS 06/16/20 11:30 06/16/20 11:37 Tiagabine HCl (Gabitril) 4 mg TID PO 06/16/20 14:00 06/17/20 20:45 Quetiapine Fumarate (SEROquel) 600 mg QHS PO 06/16/20 21:00 06/17/20 20:42 Divalproex Sodium (Depakote Er) 500 mg HS PO 06/16/20 21:00 06/17/20 02:14 DC 06/16/20 20:44 Divalproex Sodium (Depakote Sprinkles) 500 mg QHS PO 06/17/20 21:00 06/17/20 20:45 Current Medications Medications (Trade) Dose Ordered Sig/Edenilson Route PRN Reason Start Time Stop Time Status Last Admin Dose Admin Divalproex Sodium (Depakote Sprinkles) 500 mg QHS PO 06/17/20 21:00 06/17/20 20:45 I have reviewed the current psychotropics carefully including drug interactions. Risk benefit ratio favors no change other than as noted in my dictated progress note. Diagnosis: Problems: (1) Anxiety disorder, unspecified (2) Bipolar disorder, curr episode mixed, severe, with psychotic features (3) Impulse control disorder (4) Schizoaffective disorder, chronic condition with acute exacerbation (5) Intellectual disability STEVEN AYALA MD Jun 17, 2020 21:03
--- NOTE | 2020-06-17 22:50 | NUR ---
Pt located in his room this evening. Pt disorganized and somatic. Pt extremely restless, frantically flailing his arms around. Pt undressed self and was witnessed manically pulling at his penis in a non sexual way. Pt eventually calmed down somewhat with redirection and was compliant with crushed medications. Pt currently laying in bed awake yelling out intermittently.
[2020-06-18] MEDS: LEVOTHYROXINE 125 MCG TABLET PO SCH (05:08)
[2020-06-18 06:12] VITALS: BP 136/75
--- NOTE | 2020-06-18 08:35 | PDOC ---
Exam Note: Chad Note: This note is a late entry for 06/17/2020 covers elements not covered in my initial note. Subjective: The patient was seen face to face in the morning of 06/17/2020 for a treatment team meeting with Kristine Conrad, Joslyn Brady and Roseyln (social service worker), Syeda Monsivais, activity therapy and Bailee MCINTOSH. Discussed with nursing staff, reviewed the chart. The patient just slept 2-1/4 hours previous night. The patient had a very difficult day today. He has been anxious, labile in his mood, hitting, punching, kicking at staff, throwing his medications at the nursing staff, having active hallucinations. We will consult Dr. Young given his history of seizure disorder and consider whether Keppra could be worsening agitation. He has been having some intermittent hallucinations as well. Review of Systems: No CV, , pulmonary, eye, ENT system symptoms on review. Reliability poor. Mental Status Exam: The patient is oriented to himself and situation. Speech is coherent, rapid at times. Abstraction is fair. Computation is impaired. Language function is intact. Attention span is short. Mood and affect anxious, labile, grandiose at times. Laboratory Data: Reviewed. Impression: Schizoaffective disorder, bipolar type mixed with psychotic features. Anxiety disorder unspecified. Impulse control disorder unspecified. Plan: At 10.47 am, he received Tylenol and Ativan due to his agitation and pain. Assessment: Vital Signs/I&O: Vital Signs Date Time Temp Pulse Resp B/P (MAP) Pulse Ox O2 Delivery O2 Flow Rate FiO2 06/18/20 06:12 97.3 86 20 136/75 (95) 95 Room Air I & O 06/17/20 06/17/20 06/18/20 15:00 23:00 07:00 Intake Total 600 ml 360 ml Balance 600 ml 360 ml Current Medications: Meds: Current Medications Medications (Trade) Dose Ordered Sig/Edenilson Route PRN Reason Start Time Stop Time Status Last Admin Dose Admin Acetaminophen (Tylenol) 500 mg PRN Q4HRS PRN PO PAIN 06/15/20 21:15 06/17/20 10:47 Atorvastatin Calcium (Lipitor) 40 mg QHS PO 06/15/20 22:00 06/17/20 20:41 Clonazepam (KlonoPIN) 0.5 mg BID PO 06/15/20 22:00 06/17/20 20:45 Fenofibrate (Tricor) 145 mg QHS PO 06/15/20 22:00 06/17/20 20:41 Levetiracetam (Keppra) 500 mg BID PO 06/15/20 22:00 06/17/20 20:45 Lorazepam (Ativan) 1 mg PRN BID PRN PO ANXIETY / AGITATION 06/15/20 21:15 06/17/20 10:47 Al Hydroxide/Mg Hydroxide (Mylanta Plus Xs) 30 ml PRN AFTMEALHC PRN PO DYSPEPSIA 06/15/20 21:15 06/17/20 18:25 Magnesium Hydroxide (Milk Of Magnesia) 2,400 mg PRN DAILY PRN PO CONSTIPATION 06/15/20 21:15 Olanzapine (ZyPREXA ZYDIS) 10 mg BID PO 06/15/20 22:00 06/17/20 20:41 Phenytoin Sodium (Dilantin) 100 mg DAILY PO 06/16/20 09:00 06/17/20 10:03 Prazosin HCl (Minipress) 1 mg QHS PO 06/15/20 22:00 06/17/20 20:41 Quetiapine Fumarate (SEROquel) 50 mg BID94 PO 06/16/20 09:00 06/17/20 15:13 Sertraline HCl (Zoloft) 50 mg DAILY PO 06/16/20 09:00 06/17/20 10:01 Sucralfate (Carafate) 1 gm HS PO 06/15/20 22:00 06/17/20 20:41 Clozapine (Clozaril) 200 mg DAILY PO 06/16/20 09:00 06/17/20 10:02 Clozapine (Clozaril) 600 mg QHS PO 06/15/20 22:00 06/17/20 20:41 Hydroxyzine Pamoate (Vistaril) 25 mg BID PO 06/15/20 22:00 06/17/20 20:45 Lactulose (Lactulose) 20 gm TID PO 06/16/20 09:00 06/17/20 20:45 Levothyroxine Sodium (Synthroid) 125 mcg DAILY06 PO 06/16/20 06:00 06/18/20 05:08 Loperamide HCl (Imodium) 2 mg PRN DAILY PRN PO loose stools 06/15/20 22:00 Multi-Ingredient Ointment (Analgesic [place]) 1 dennis PRN QID PRN TP MUSCLE PAIN 06/15/20 22:15 Mirabegron (Myrbetriq) 50 mg QHS PO 06/15/20 22:00 06/17/20 20:53 Multivitamins/ Calcium (Thera-M Plus) 1 tab DAILY PO 06/16/20 09:00 06/17/20 10:01 Pantoprazole Sodium (Protonix) 40 mg DAILYAC PO 06/16/20 07:30 06/17/20 10:01 Phenytoin Sodium (Dilantin) 200 mg HS PO 06/15/20 22:00 06/17/20 20:42 Non-Formulary Medication (Quetiapine Fumarate (Seroquel Xr)) 600 mg QHS PO 06/16/20 21:00 06/16/20 17:14 DC Non-Formulary Medication (Tiagabine Hcl (Gabitril)) 4 mg TID PO 06/16/20 09:00 06/16/20 11:26 DC Olanzapine (ZyPREXA ZYDIS) 5 mg PRN Q2HR PRN PO PSYCHOSIS 06/16/20 11:30 06/16/20 11:37 Tiagabine HCl (Gabitril) 4 mg TID PO 06/16/20 14:00 06/17/20 20:45 Quetiapine Fumarate (SEROquel) 600 mg QHS PO 06/16/20 21:00 06/17/20 20:42 Divalproex Sodium (Depakote Er) 500 mg HS PO 06/16/20 21:00 06/17/20 02:14 DC 06/16/20 20:44 Divalproex Sodium (Depakote Sprinkles) 500 mg QHS PO 06/17/20 21:00 06/17/20 20:45 Current Medications Medications (Trade) Dose Ordered Sig/Edenilson Route PRN Reason Start Time Stop Time Status Last Admin Dose Admin Divalproex Sodium (Depakote Sprinkles) 500 mg QHS PO 06/17/20 21:00 06/17/20 20:45 I have reviewed the current psychotropics carefully including drug interactions. Risk benefit ratio favors no change other than as noted in my dictated progress note. Diagnosis: Problems: (1) Anxiety disorder, unspecified (2) Intellectual disability (3) Bipolar disorder, curr episode mixed, severe, with psychotic features (4) Dementia in Alzheimer's disease with delusions (5) Impulse control disorder (6) Schizoaffective disorder, chronic condition with acute exacerbation STEVEN AYALA MD Jun 18, 2020 08:34
[2020-06-18] MEDS: QUEtiapine 50 MG TABLET. PO SCH ×2 (09:00→16:00)
[2020-06-18] MEDS: TIAGABINE 4 MG PO SCH ×3 (12:56→19:43)
[2020-06-18] MEDS: LACTULOSE 20 GM/30 ML SOLUTION. PO SCH ×3 (12:56→19:41)
[2020-06-18] MEDS: PANTOPRAZOLE 40 MG TABLET. PO SCH (12:56)
[2020-06-18] MEDS: cloZAPine 100 MG TABLET PO SCH ×2 (12:56→19:39)
[2020-06-18] MEDS: levETIRAcetam 500 MG TABLET PO SCH ×2 (12:56→19:41)
[2020-06-18] MEDS: hydrOXYzine PAMOATE 25 MG CAPSULE PO SCH ×2 (12:56→19:40)
[2020-06-18] MEDS: clonazePAM 0.5 MG TABLET PO SCH ×2 (12:57→19:38)
[2020-06-18] MEDS: MULTIVITAMIN with MINERAL TABLET. PO SCH (12:57)
[2020-06-18] MEDS: SERTRALINE 50 MG TABLET. PO SCH (12:57)
[2020-06-18] MEDS: PHENYTOIN SODIUM EXTENDED 100 MG CAPSULE PO SCH ×2 (12:57→19:39)
--- NOTE | 2020-06-18 13:20 | NUR ---
ACTIVITY THERAPY ASSESSMENT Completed based on observation, interview, and notes. Pt. was in his room, laying calmly in bed. He was agreeable to speak with TOOL CARRIER and was quite pleasant. When asked if he knew where he was and if he was here before, he said no. When asked that brought him here, he said the same reason as last time, he kept falling at his longterm. When asked how he was feeling today, he said "weak." At his longterm lately, he has been sleeping a lot but liked to listen to [employer]oo music and watch TV like Leave it to [place]. He denied enjoying reading and used to like cards when he was a kid. He shared he sleeps pretty well and can hear and see well but his said he doesn't have a memory and it's hard for him to speak. He mentioned he feels left out, doesn't know anyone here but was not interest in groups when TOOL CARRIER encouraged participation. Pt. asked about his discharge plans and how far away he was from [place]. Since Pt's admission, notes indicate Pt can be hyperfixated at times, confused and have auditory and visual hallucinations. He has been difficult to redirect and can be disruptive and yell out frequently. At times, he is noncompliant, uncooperative, verbally and physically aggressive. He has demonstrated bargaining/ negotiating behaviors. Pt. is often withdrawn to his room. Initial goal aimed to increase stimulation and socialization: Pt. will participate in at least five individual or Activity Therapy group sessions before discharge.
[2020-06-18] MEDS: ACETAMINOPHEN 500 MG TABLET PO PRN (14:09)
--- NOTE | 2020-06-18 15:42 | NUR ---
Patient has been choking on water when drinking. He seems to drink really fast and alot at a time. even when i ask him to slow down he chokes. Spoke to Web Operations Lead and she stated that he was here on mechanical soft prior with nectar liquids and it is requested for him to do a swallow test to see if this is appropriate for him. Order put in for Speech to come and evaluate.
[2020-06-18 16:23] VITALS: BP 132/79
--- NOTE | 2020-06-18 17:52 | NUR ---
Patient laying in bed most of the day. He is calm but easily irritated and becomes agitated quickly. He complains of having leg pain and heel pain. I put heel protectors on him and floated his heels to help. He was given tylenol and zydis to help him calm down and to help with the pain. Patient is cooperative and takes his medications fine. No further concerns at this time.
[2020-06-18] MEDS: QUEtiapine 100 MG TABLET. PO SCH (19:39)
[2020-06-18] MEDS: DIVALPROEX 125 MG CAP.SPRINK PO SCH (19:40)
[2020-06-18] MEDS: ATORVASTATIN CALCIUM 10 MG TABLET. PO SCH (19:40)
[2020-06-18] MEDS: SUCRALFATE 1 GM TABLET. PO SCH (19:41)
[2020-06-18] MEDS: FENOFIBRATE NANOCRYSTALLIZED 145 MG TABLET PO SCH (19:41)
[2020-06-18] MEDS: PRAZOSIN 1 MG CAPSULE. PO SCH (19:41)
[2020-06-18] MEDS: MIRABEGRON 25 MG TAB.ER.24H PO SCH (21:00)
--- NOTE | 2020-06-18 21:29 | CONS ---
DATE OF CONSULTATION: 06/17/2020 NEUROLOGY CONSULTATION REFERRING PHYSICIAN: Dr. Rios. REASON FOR CONSULTATION: History of seizure and tic disorders. HISTORY OF PRESENT ILLNESS: The patient is a 55-year-old right-handed male, who was transferred [facility] to [facility] Unit on 06/15/2020 on account of exacerbation of his psychiatric disorders diagnosed as schizoaffective disorders and bipolar disorders with psychotic features. Neuro consult was requested because the patient has had history of seizure disorders and he has been on multiple anticonvulsants. According to the patient, he has had a history of seizure disorders for several years and he has not had any recurrent seizure for a while. He described his seizure as generalized tonic-clonic seizures with loss of consciousness with postictal confusion, disorientation and tongue biting with bladder incontinence. The patient has not had any recurrent seizures since admission and he did not remember the last seizure, but probably a few months back. He also complains of swelling of his feet. The patient also witnessed to have some hallucination, agitation, throwing things at staff and being verbal abuse. PAST MEDICAL HISTORY: Significant for seizure disorder, etiology uncertain, probably secondary to traumatic head injuries, history of hypothyroidism, hyperlipidemia, gastroesophageal reflux, development delay. PAST PSYCHIATRIC HISTORY: Positive for schizophrenia, bipolar disorders and behavior disorders as well. FAMILY HISTORY: Noncontributory. SOCIAL HISTORY: The patient denies smoking, alcohol drinking or illicit drug use. CURRENT MEDICATIONS: Include Tylenol, Lipitor, Klonopin, clozapine, TriCor, hydroxyzine, lactulose, Keppra, Synthroid, lorazepam, multivitamin, Zyprexa Zydis, Protonix, Dilantin, Minipress, Seroquel, Zoloft, Carafate. He takes phenytoin 100 mg daily and 200 mg at bedtime. Keppra or levetiracetam, he takes 500 mg twice daily. ALLERGIES: HALOPERIDOL AND KETCHUP. PHYSICAL EXAMINATION: GENERAL: Well-developed, well-nourished male, not in acute distress. He weighs 77.8 kilos. VITAL SIGNS: Blood pressure 110/68, respiratory rate 20, pulse is 80, oxygen saturation is 96% on room air, and temperature is 97. HEENT: Normocephalic, atraumatic, otherwise unremarkable. NECK: Supple. Negative for carotid bruit, lymphadenopathy or thyromegaly. LUNGS: Clear to A and P. CARDIOVASCULAR: Regular rate and rhythm. Normal S1, S2. There is no S3, S4 or murmur. ABDOMEN: Soft. Bowel sounds positive. EXTREMITIES: Positive for 2+ pitting edema. NEUROLOGICAL: Mental status: The patient is alert and oriented x 2. The speech is fluent. There is no language dysfunction. Memory, judgment and abstracting thinking are fair. The patient denies hallucination or delusion at this time. Cranial nerves: Visual lynch are full. The pupils are reactive to light and accommodation. The extraocular movements are intact. There is no nystagmus. There is no facial motor or sensory deficit. Hearing is intact bilaterally. The palate is elevated symmetrically. Sternocleidomastoid muscles are powerful bilaterally. The patient shrugs his shoulders symmetrically, protrudes his tongue in the midline without fasciculation or atrophy. Motor examination: No focal muscle bulk was seen. The tone is normal. The strength is 4/5 throughout. Sensory examination: Revealed normal pinprick, light touch, vibratory and position senses. Deep tendon reflexes were asymmetric and hypoactive with absent Achilles responses. Gait: Not tested. The patient uses a wheelchair to ambulate; however, he stated he cannot walk without assistance. DIAGNOSTIC DATA: Head CT scan performed on 07/2017 revealed no acute intracranial process, but had frontal and ethmoid sinus disease. LABORATORY DATA: From 06/16/2020 revealed white blood cells of 7.6, hemoglobin 13.3, hematocrit 40.2, platelet count 298,000. Chemistry: Sodium 138, potassium 3.8, chloride 104, CO2 of 25, BUN 16, creatinine 1, glucose 114. Lactic acid is normal. Iron is normal. Liver enzymes are normal. Lipid profile revealed low HDL at 32, vitamin B12 is normal. TSH is elevated with low T4. Urinalysis is negative for urinary tract infections. Serology revealed negative PCR for coronavirus. IMPRESSION: 1. Multiple psychiatric problems include schizoaffective disorders and bipolar disorders with behavior disturbances, with intermittent psychotic features. 2. History of seizure disorders of unknown etiology. The patient has been on 2 anticonvulsants including Dilantin and Keppra. RECOMMENDATIONS: 1. Continue with Dilantin. 2. For anticonvulsant Keppra, which might exacerbate some underlying psychiatric disorders, we are gradually tapering the dose as 250 mg of every third day. 3. We will observe the patient for any risk of recurrent seizure. M Amadeo CRUZ MD DR: SCOT/garry JOB#: [id number] / [id number]
--- NOTE | 2020-06-18 21:33 | PDOC ---
Exam Note: Chad Note: Please also refer to the separate dictated note~for this date of service dictated separately.~Patient seen individually. Discussed the patient with Nursing staff reviewed the chart.~Reviewed interim history and current functioning. Reviewed vital signs,~Labs/ Radiology~and current medications noted below. Continue current treatment with the changes noted in the dictated addendum note Assessment: Vital Signs/I&O: Vital Signs Date Time Temp Pulse Resp B/P (MAP) Pulse Ox O2 Delivery O2 Flow Rate FiO2 06/18/20 19:41 89 132/79 06/18/20 16:23 97.8 19 99 Room Air I & O 06/17/20 06/17/20 06/18/20 15:00 23:00 07:00 Intake Total 600 ml 360 ml Balance 600 ml 360 ml Current Medications: Meds: Current Medications Medications (Trade) Dose Ordered Sig/Edenilson Route PRN Reason Start Time Stop Time Status Last Admin Dose Admin Acetaminophen (Tylenol) 500 mg PRN Q4HRS PRN PO PAIN 06/15/20 21:15 06/18/20 14:09 Atorvastatin Calcium (Lipitor) 40 mg QHS PO 06/15/20 22:00 06/18/20 19:40 Clonazepam (KlonoPIN) 0.5 mg BID PO 06/15/20 22:00 06/18/20 19:38 Fenofibrate (Tricor) 145 mg QHS PO 06/15/20 22:00 06/18/20 19:41 Levetiracetam (Keppra) 500 mg BID PO 06/15/20 22:00 06/18/20 19:41 Lorazepam (Ativan) 1 mg PRN BID PRN PO ANXIETY / AGITATION 06/15/20 21:15 06/17/20 10:47 Al Hydroxide/Mg Hydroxide (Mylanta Plus Xs) 30 ml PRN AFTMEALHC PRN PO DYSPEPSIA 06/15/20 21:15 06/17/20 18:25 Magnesium Hydroxide (Milk Of Magnesia) 2,400 mg PRN DAILY PRN PO CONSTIPATION 06/15/20 21:15 Olanzapine (ZyPREXA ZYDIS) 10 mg BID PO 06/15/20 22:00 06/18/20 19:40 Phenytoin Sodium (Dilantin) 100 mg DAILY PO 06/16/20 09:00 06/18/20 12:57 Prazosin HCl (Minipress) 1 mg QHS PO 06/15/20 22:00 06/18/20 19:41 Quetiapine Fumarate (SEROquel) 50 mg BID94 PO 06/16/20 09:00 06/18/20 16:00 Sertraline HCl (Zoloft) 50 mg DAILY PO 06/16/20 09:00 06/18/20 12:57 Sucralfate (Carafate) 1 gm HS PO 06/15/20 22:00 06/18/20 19:41 Clozapine (Clozaril) 200 mg DAILY PO 06/16/20 09:00 06/18/20 12:56 Clozapine (Clozaril) 600 mg QHS PO 06/15/20 22:00 06/18/20 19:39 Hydroxyzine Pamoate (Vistaril) 25 mg BID PO 06/15/20 22:00 06/18/20 19:40 Lactulose (Lactulose) 20 gm TID PO 06/16/20 09:00 06/18/20 19:41 Levothyroxine Sodium (Synthroid) 125 mcg DAILY06 PO 06/16/20 06:00 06/18/20 05:08 Loperamide HCl (Imodium) 2 mg PRN DAILY PRN PO loose stools 06/15/20 22:00 Multi-Ingredient Ointment (Analgesic [place]) 1 dennis PRN QID PRN TP MUSCLE PAIN 06/15/20 22:15 Mirabegron (Myrbetriq) 50 mg QHS PO 06/15/20 22:00 06/17/20 20:53 Multivitamins/ Calcium (Thera-M Plus) 1 tab DAILY PO 06/16/20 09:00 06/18/20 12:57 Pantoprazole Sodium (Protonix) 40 mg DAILYAC PO 06/16/20 07:30 06/18/20 12:56 Phenytoin Sodium (Dilantin) 200 mg HS PO 06/15/20 22:00 06/18/20 19:39 Non-Formulary Medication (Quetiapine Fumarate (Seroquel Xr)) 600 mg QHS PO 06/16/20 21:00 06/16/20 17:14 DC Non-Formulary Medication (Tiagabine Hcl (Gabitril)) 4 mg TID PO 06/16/20 09:00 06/16/20 11:26 DC Olanzapine (ZyPREXA ZYDIS) 5 mg PRN Q2HR PRN PO PSYCHOSIS 06/16/20 11:30 06/18/20 14:47 Tiagabine HCl (Gabitril) 4 mg TID PO 06/16/20 14:00 06/18/20 19:43 Quetiapine Fumarate (SEROquel) 600 mg QHS PO 06/16/20 21:00 06/18/20 19:39 Divalproex Sodium (Depakote Er) 500 mg HS PO 06/16/20 21:00 06/17/20 02:14 DC 06/16/20 20:44 Divalproex Sodium (Depakote Sprinkles) 500 mg QHS PO 06/17/20 21:00 06/18/20 19:40 I have reviewed the current psychotropics carefully including drug interactions. Risk benefit ratio favors no change other than as noted in my dictated progress note. Diagnosis: Problems: (1) Anxiety disorder, unspecified (2) Intellectual disability (3) Bipolar disorder, curr episode mixed, severe, with psychotic features (4) Dementia in Alzheimer's disease with delusions (5) Impulse control disorder (6) Schizoaffective disorder, chronic condition with acute exacerbation STEVEN AYALA MD Jun 18, 2020 21:33
--- NOTE | 2020-06-19 00:50 | NUR ---
Nursing Note The patient was withdrawn to his room this shift. The patient was initially resistive to taking his medication but was compliant after talking to this nurse. The patient was resistive with taking a shower also but after discussing why he needed to shower he was compliant.
[2020-06-19] MEDS: LEVOTHYROXINE 125 MCG TABLET PO SCH (05:34)
[2020-06-19 06:07] VITALS: BP 124/71
[2020-06-19 06:35] LABS: BASO % 0 % (0-3); EOS # 0.3 x10^3/uL (0.0-0.7); EOS % 5 % (0-3); HEMATOCRIT 40.6 % (39.0-53.0); HEMOGLOBIN 13.4 g/dL (13.0-17.5); LYMPH # 1.9 x10^3/uL (1.0-4.8); LYMPH % 32 % (24-48); MEAN CORPUSCULAR HEMOGLOBIN 29 pg (25-35); MEAN CORPUSCULAR HGB CONC 33 g/dL (31-37); MEAN CORPUSCULAR VOLUME 87 fL (79-100); MONO # 0.5 x10^3/uL (0.0-1.1); MONO % 9 % (0-9); NEUT # 3.2 x10^3uL (1.8-7.7); NEUT % 54 % (31-73); PLATELET COUNT 282 x10^3/uL (140-400); RED BLOOD COUNT 4.65 x10^6/uL (4.30-5.70); RED CELL DISTRIBUTION WIDTH 14.1 % (11.5-14.5); WHITE BLOOD COUNT 5.9 x10^3/uL (4.0-11.0)
[2020-06-19 06:43] LABS: ALBUMIN 3.2 g/dL (3.4-5.0); ALBUMIN/GLOBULIN RATIO 0.8 (1.0-1.7); ALK PHOS 74 U/L (46-116); ALT (SGPT) 22 U/L (16-63); ANION GAP 9 (6-14); AST (SGOT) 23 U/L (15-37); BLOOD UREA NITROGEN 9 mg/dL (8-26); BUN/CREATININE RATIO 11 (6-20); CALCIUM 8.1 mg/dL (8.5-10.1); CARBON DIOXIDE 25 mmol/L (21-32); CHLORIDE 104 mmol/L (98-107); CREATININE 0.8 mg/dL (0.7-1.3); GFR 99.6; GLUCOSE 105 mg/dL (70-99); POTASSIUM 3.6 mmol/L (3.5-5.1); SODIUM 138 mmol/L (136-145); TOTAL BILIRUBIN 0.2 mg/dL (0.2-1.0); TOTAL PROTEIN 7.4 g/dL (6.4-8.2)
[2020-06-19 06:46] LABS: VAL ACID 24 mcg/mL (50-100)
[2020-06-19] MEDS: MULTIVITAMIN with MINERAL TABLET. PO SCH (08:48)
[2020-06-19] MEDS: hydrOXYzine PAMOATE 25 MG CAPSULE PO SCH ×2 (08:48→20:07)
[2020-06-19] MEDS: PHENYTOIN SODIUM EXTENDED 100 MG CAPSULE PO SCH ×2 (08:48→19:55)
[2020-06-19] MEDS: cloZAPine 100 MG TABLET PO SCH ×2 (08:48→19:59)
[2020-06-19] MEDS: PANTOPRAZOLE 40 MG TABLET. PO SCH (08:48)
[2020-06-19] MEDS: levETIRAcetam 500 MG TABLET PO SCH ×2 (08:49→20:00)
[2020-06-19] MEDS: SERTRALINE 50 MG TABLET. PO SCH (08:49)
[2020-06-19] MEDS: LACTULOSE 20 GM/30 ML SOLUTION. PO SCH ×3 (08:49→20:00)
[2020-06-19] MEDS: QUEtiapine 50 MG TABLET. PO SCH ×2 (08:49→16:12)
[2020-06-19] MEDS: clonazePAM 0.5 MG TABLET PO SCH ×2 (08:51→20:10)
[2020-06-19] MEDS: TIAGABINE 4 MG PO SCH ×3 (08:52→20:10)
[2020-06-19 17:54] VITALS: BP 92/56
--- NOTE | 2020-06-19 18:26 | NUR ---
PATIENT WAS IN A BED IN HIS ROOM MOST OF THE DAY, COMPLIANT WITH MEDS, STATED HIS FEET HURT AND WOULD LIKE THE PILLOW, PATIENT HAS OTHER MULTIPLE COMPLAINTS, DEMANDING ATTENTION, INTERRUPTS WHEN STAFF SPEAKS TO HIS ROOMMATE, PATIENT SPEAKS AT TIMES TO SOMEONE WHO IS NOT PRESENT, STATED A COUPLE OF TIMES THAT HIS BROTHER, FRIENDS OR OTHER INDIVIDUALS WERE BEATING HIM UP . WHEN THIS RN ASKED WHEN DID THIS HAPPEN, PATIENT DID NOT RESPOND TO THE QUESTION.
--- NOTE | 2020-06-19 19:13 | TX PLAN ---
Interdisciplinary Tx Plan Admission Information Jun 15, 2020 at 15:45 Legal Status (on Admission): Voluntary DPOA/Guardian Name: Carlos Groves Contact Other Contact Name: [facility] Other Contact Verified Code Status: Full Code Allergies: Coded Allergies: haloperidol (Verified Allergy, Intermediate, 07/31/17) ketchup (Verified Allergy, Intermediate, 07/31/17) Diagnoses Primary Diagnosis: Schizoaffective D/O, Bipolar type with psychotic features Reasons for Admission: Agitated, Angry, Combative, Suspicious/paranoid, Poor impulse control Problem in Patient's Words: He has had a lot of changes and Covid messed up his routine. Additional Admission Comments: According to the intake, pt has labile mood, crying, threw cleanser, cleanser at staff, verbal and physical outbursts, demanding staff, reports his "vagina hurts", throwing belongings, yelling, agitated, his "bad" friends don't leave him alone. Problems Active Problems: labile mood demanding with staff bargaining behaviors Inactive Problems: medication compliant Pt Strengths/Limitations Ability for [place]: Poor Cognitive Functioning/Ability: Poor Communication Skills/Ability: Fair Financial Resources: Fair Insight/Judgement: Poor Intellectual Ability: Poor Physical Health: Fair Social Skills: Poor Stability in Family: Excellent Stability in School/Work: Poor Verbal Skills: Fair Discharge Criteria Discharge Criteria: Adequate arrangements @DC, Improved behavior, Improved mood/thought Preliminary Discharge Plan Preliminary DC Plan: Current Living Arrange. Special Precautions Fall Risk: Low Initial D/C Plan Pt to return to [facility] once stable Identified Discharge Needs: N/A Currently Utilized Resources Currently Utilized Resources/P: Primary Care Physician Psychiatrist Visual Basic Programmer at facility Identified Problems/Hx/Goals Objectives/Short-Term Goals Short Term Goals: Dec. Aggression, Dec. Outbursts, Medication Stabilization, Promote Coping Skill Short Term Goals in Patient's: N/A Interventions/Frequency Staff Interventions/Frequency&: Psychiatrist to assess pt at least 3x per week for medication management. Social Work to assess pt at least 2x per week to address barriers to care and discharge planning. Nursing to assess behaviors, medication effects and complete 15 minute checks. Encourage group participation in activites (if applicable) or 1:1 engagement based off Activity Dept goals. History Vocational History: Pt was not able to work. Education: Pt graduated high school in 1981 (12th grade). Pt has always attended Special Education classes and was bullied all throughout high school. Community Follow-up Psychiatrist Primary Care Physician Treatment Plan Explained Patient/Risk Management Professional had this treatment plan explained to him/her as indicated by the signature below and has been given the opportunity to ask questions and make suggestions: Date: Patient/Risk Management Professional Signature: Patient/Risk Management Professional Decline: No (Pt brother is very active in pt care.) PARISH ARMSTRONG Jun 19, 2020 19:13
[2020-06-19] MEDS: SUCRALFATE 1 GM TABLET. PO SCH (19:58)
[2020-06-19] MEDS: DIVALPROEX 125 MG CAP.SPRINK PO SCH (19:58)
[2020-06-19] MEDS: FENOFIBRATE NANOCRYSTALLIZED 145 MG TABLET PO SCH (19:58)
[2020-06-19] MEDS: QUEtiapine 100 MG TABLET. PO SCH (19:58)
[2020-06-19] MEDS: ATORVASTATIN CALCIUM 10 MG TABLET. PO SCH (20:00)
[2020-06-19] MEDS: PRAZOSIN 1 MG CAPSULE. PO SCH (20:07)
[2020-06-19] MEDS: MIRABEGRON 25 MG TAB.ER.24H PO SCH (20:09)
--- NOTE | 2020-06-19 20:57 | PDOC ---
Exam Note: Chad Note: Please also refer to the separate dictated note~for this date of service dictated separately.~Patient seen individually. Discussed the patient with Nursing staff reviewed the chart.~Reviewed interim history and current functioning. Reviewed vital signs,~Labs/ Radiology~and current medications noted below. Continue current treatment with the changes noted in the dictated addendum note Assessment: Vital Signs/I&O: Vital Signs Date Time Temp Pulse Resp B/P (MAP) Pulse Ox O2 Delivery O2 Flow Rate FiO2 06/19/20 20:07 89 109/64 06/19/20 17:54 98.3 20 96 06/19/20 06:07 Room Air I & O 06/18/20 06/18/20 06/19/20 15:00 23:00 07:00 Intake Total 340 ml 120 ml Balance 340 ml 120 ml Labs: Laboratory Tests Test 06/19/20 06:20 White Blood Count 5.9 x10^3/uL (4.0-11.0) Red Blood Count 4.65 x10^6/uL (4.30-5.70) Hemoglobin 13.4 g/dL (13.0-17.5) Hematocrit 40.6 % (39.0-53.0) Mean Corpuscular Volume 87 fL (79-100) Mean Corpuscular Hemoglobin 29 pg (25-35) Mean Corpuscular Hemoglobin Concent 33 g/dL (31-37) Red Cell Distribution Width 14.1 % (11.5-14.5) Platelet Count 282 x10^3/uL (140-400) Neutrophils (%) (Auto) 54 % (31-73) Lymphocytes (%) (Auto) 32 % (24-48) Monocytes (%) (Auto) 9 % (0-9) Eosinophils (%) (Auto) 5 % (0-3) H Basophils (%) (Auto) 0 % (0-3) Neutrophils # (Auto) 3.2 x10^3uL (1.8-7.7) Lymphocytes # (Auto) 1.9 x10^3/uL (1.0-4.8) Monocytes # (Auto) 0.5 x10^3/uL (0.0-1.1) Eosinophils # (Auto) 0.3 x10^3/uL (0.0-0.7) Basophils # (Auto) 0.0 x10^3/uL (0.0-0.2) Sodium Level 138 mmol/L (136-145) Potassium Level 3.6 mmol/L (3.5-5.1) Chloride Level 104 mmol/L (98-107) Carbon Dioxide Level 25 mmol/L (21-32) Anion Gap 9 (6-14) Blood Urea Nitrogen 9 mg/dL (8-26) Creatinine 0.8 mg/dL (0.7-1.3) Estimated GFR (Cockcroft-Gault) 99.6 BUN/Creatinine Ratio 11 (6-20) Glucose Level 105 mg/dL (70-99) H Calcium Level 8.1 mg/dL (8.5-10.1) L Total Bilirubin 0.2 mg/dL (0.2-1.0) Aspartate Amino Transferase (AST) 23 U/L (15-37) Alanine Aminotransferase (ALT) 22 U/L (16-63) Alkaline Phosphatase 74 U/L (46-116) Ammonia 41 mcmol/L (11-34) H Total Protein 7.4 g/dL (6.4-8.2) Albumin 3.2 g/dL (3.4-5.0) L Albumin/Globulin Ratio 0.8 (1.0-1.7) L Valproic Acid Level 24 mcg/mL (50-100) L Valproic Acid Last Dose Date 06/18/2020 Valproic Acid Last Dose Time 2100 Current Medications: Meds: Laboratory Tests Test 06/19/20 06:20 White Blood Count 5.9 x10^3/uL Red Blood Count 4.65 x10^6/uL Hemoglobin 13.4 g/dL Hematocrit 40.6 % Mean Corpuscular Volume 87 fL Mean Corpuscular Hemoglobin 29 pg Mean Corpuscular Hemoglobin Concent 33 g/dL Red Cell Distribution Width 14.1 % Platelet Count 282 x10^3/uL Neutrophils (%) (Auto) 54 % Lymphocytes (%) (Auto) 32 % Monocytes (%) (Auto) 9 % Eosinophils (%) (Auto) 5 % Basophils (%) (Auto) 0 % Neutrophils # (Auto) 3.2 x10^3uL Lymphocytes # (Auto) 1.9 x10^3/uL Monocytes # (Auto) 0.5 x10^3/uL Eosinophils # (Auto) 0.3 x10^3/uL Basophils # (Auto) 0.0 x10^3/uL Sodium Level 138 mmol/L Potassium Level 3.6 mmol/L Chloride Level 104 mmol/L Carbon Dioxide Level 25 mmol/L Anion Gap 9 Blood Urea Nitrogen 9 mg/dL Creatinine 0.8 mg/dL Estimated GFR (Cockcroft-Gault) 99.6 BUN/Creatinine Ratio 11 Glucose Level 105 mg/dL Calcium Level 8.1 mg/dL Total Bilirubin 0.2 mg/dL Aspartate Amino Transf (AST/SGOT) 23 U/L Alanine Aminotransferase (ALT/SGPT) 22 U/L Alkaline Phosphatase 74 U/L Ammonia 41 mcmol/L Total Protein 7.4 g/dL Albumin 3.2 g/dL Albumin/Globulin Ratio 0.8 Valproic Acid (Depakene) Level 24 mcg/mL Valproic Acid Last Dose Date 06/18/2020 Valproic Acid Last Dose Time 2100 Current Medications Medications (Trade) Dose Ordered Sig/Edenilson Route PRN Reason Start Time Stop Time Status Last Admin Dose Admin Acetaminophen (Tylenol) 500 mg PRN Q4HRS PRN PO PAIN 06/15/20 21:15 06/18/20 14:09 Atorvastatin Calcium (Lipitor) 40 mg QHS PO 06/15/20 22:00 06/19/20 20:00 Clonazepam (KlonoPIN) 0.5 mg BID PO 06/15/20 22:00 06/19/20 20:10 Fenofibrate (Tricor) 145 mg QHS PO 06/15/20 22:00 06/19/20 19:58 Levetiracetam (Keppra) 500 mg BID PO 06/15/20 22:00 06/19/20 20:00 Lorazepam (Ativan) 1 mg PRN BID PRN PO ANXIETY / AGITATION 06/15/20 21:15 06/17/20 10:47 Al Hydroxide/Mg Hydroxide (Mylanta Plus Xs) 30 ml PRN AFTMEALHC PRN PO DYSPEPSIA 06/15/20 21:15 06/17/20 18:25 Magnesium Hydroxide (Milk Of Magnesia) 2,400 mg PRN DAILY PRN PO CONSTIPATION 06/15/20 21:15 Olanzapine (ZyPREXA ZYDIS) 10 mg BID PO 06/15/20 22:00 06/19/20 19:58 Phenytoin Sodium (Dilantin) 100 mg DAILY PO 06/16/20 09:00 06/19/20 08:48 Prazosin HCl (Minipress) 1 mg QHS PO 06/15/20 22:00 06/19/20 20:07 Quetiapine Fumarate (SEROquel) 50 mg BID94 PO 06/16/20 09:00 06/19/20 16:12 Sertraline HCl (Zoloft) 50 mg DAILY PO 06/16/20 09:00 06/19/20 08:49 Sucralfate (Carafate) 1 gm HS PO 06/15/20 22:00 06/19/20 19:58 Clozapine (Clozaril) 200 mg DAILY PO 06/16/20 09:00 06/19/20 08:48 Clozapine (Clozaril) 600 mg QHS PO 06/15/20 22:00 06/19/20 19:59 Hydroxyzine Pamoate (Vistaril) 25 mg BID PO 06/15/20 22:00 06/19/20 20:07 Lactulose (Lactulose) 20 gm TID PO 06/16/20 09:00 06/19/20 20:00 Levothyroxine Sodium (Synthroid) 125 mcg DAILY06 PO 06/16/20 06:00 06/19/20 05:34 Loperamide HCl (Imodium) 2 mg PRN DAILY PRN PO loose stools 06/15/20 22:00 Multi-Ingredient Ointment (Analgesic [place]) 1 dennis PRN QID PRN TP MUSCLE PAIN 06/15/20 22:15 Mirabegron (Myrbetriq) 50 mg QHS PO 06/15/20 22:00 06/19/20 20:09 Multivitamins/ Calcium (Thera-M Plus) 1 tab DAILY PO 06/16/20 09:00 06/19/20 08:48 Pantoprazole Sodium (Protonix) 40 mg DAILYAC PO 06/16/20 07:30 06/19/20 08:48 Phenytoin Sodium (Dilantin) 200 mg HS PO 06/15/20 22:00 06/19/20 19:55 Non-Formulary Medication (Quetiapine Fumarate (Seroquel Xr)) 600 mg QHS PO 06/16/20 21:00 06/16/20 17:14 DC Non-Formulary Medication (Tiagabine Hcl (Gabitril)) 4 mg TID PO 06/16/20 09:00 06/16/20 11:26 DC Olanzapine (ZyPREXA ZYDIS) 5 mg PRN Q2HR PRN PO PSYCHOSIS 06/16/20 11:30 06/18/20 14:47 Tiagabine HCl (Gabitril) 4 mg TID PO 06/16/20 14:00 06/19/20 20:10 Quetiapine Fumarate (SEROquel) 600 mg QHS PO 06/16/20 21:00 06/19/20 19:58 Divalproex Sodium (Depakote Er) 500 mg HS PO 06/16/20 21:00 06/17/20 02:14 DC 06/16/20 20:44 Divalproex Sodium (Depakote Sprinkles) 500 mg QHS PO 06/17/20 21:00 06/19/20 17:09 DC 06/18/20 19:40 Divalproex Sodium (Depakote Sprinkles) 500 mg BID PO 06/19/20 21:00 06/19/20 19:58 Current Medications Medications (Trade) Dose Ordered Sig/Edenilson Route PRN Reason Start Time Stop Time Status Last Admin Dose Admin Divalproex Sodium (Depakote Sprinkles) 500 mg BID PO 06/19/20 21:00 06/19/20 19:58 I have reviewed the current psychotropics carefully including drug interactions. Risk benefit ratio favors no change other than as noted in my dictated progress note. Diagnosis: Problems: (1) Anxiety disorder, unspecified (2) Intellectual disability (3) Bipolar disorder, curr episode mixed, severe, with psychotic features (4) Dementia in Alzheimer's disease with delusions (5) Impulse control disorder (6) Schizoaffective disorder, chronic condition with acute exacerbation STEVEN AYALA MD Jun 19, 2020 20:57
--- NOTE | 2020-06-20 03:19 | NUR ---
Nursing Note The patient was located in his room for his assessment and medication pass. The patient took his medication crushed in apple sauce. The patient was drowsy during his assessment but was able to answer name and hospital. The patient was compliant with cares.
[2020-06-20] MEDS: LEVOTHYROXINE 125 MCG TABLET PO SCH (05:45)
[2020-06-20 06:26] VITALS: BP 122/63
[2020-06-20] MEDS: clonazePAM 0.5 MG TABLET PO SCH ×2 (09:00→21:04)
[2020-06-20] MEDS: TIAGABINE 4 MG PO SCH ×3 (09:00→21:03)
--- NOTE | 2020-06-20 09:05 | PDOC ---
Exam Note: Chad Note: This note is a late entry for 06/18/2020 covers elements not covered in my initial note. Subjective: The patient was seen face to face in the evening of 06/18/2020 with Ileana MCINTOSH. Discussed with nursing staff, reviewed the chart. The patient just slept till about 12.15 p.m. in the morning. Previous evening he was yelling, anxious, labile in his mood. He resents his roommate and I processed this with him. Review of Systems: No CV, , pulmonary, eye, ENT system symptoms on review. Gait is somewhat unsteady. Mental Status Exam: The patient is reasonably oriented. Speech is coherent, rapid at times, somewhat loud. Abstraction is fair. Computation is impaired. Language function is intact. Mood and affect remains somewhat labile, grandiose at times. No suicidal or homicidal ideation. Laboratory Data: Reviewed. Impression: Schizoaffective disorder, bipolar type mixed with psychotic features. Anxiety disorder unspecified. Impulse control disorder unspecified. Plan: Continue current psychotropics. I will defer the question whether Keppra could be discontinued. We will have Dr. Young decide on this. We are adjusting her Depakote. We will follow labs and valproic acid level, adjust to reach therapeutic level. Dilantin is therapeutic at 18.1. Assessment: Vital Signs/I&O: Vital Signs Date Time Temp Pulse Resp B/P (MAP) Pulse Ox O2 Delivery O2 Flow Rate FiO2 06/20/20 06:26 97.1 97 18 122/63 (82) 93 Room Air I & O 06/19/20 06/19/20 06/20/20 15:00 23:00 07:00 Intake Total 120 ml 480 ml 100 ml Balance 120 ml 480 ml 100 ml Current Medications: Meds: Current Medications Medications (Trade) Dose Ordered Sig/Edenilson Route PRN Reason Start Time Stop Time Status Last Admin Dose Admin Acetaminophen (Tylenol) 500 mg PRN Q4HRS PRN PO PAIN 06/15/20 21:15 06/18/20 14:09 Atorvastatin Calcium (Lipitor) 40 mg QHS PO 06/15/20 22:00 06/19/20 20:00 Clonazepam (KlonoPIN) 0.5 mg BID PO 06/15/20 22:00 06/19/20 20:10 Fenofibrate (Tricor) 145 mg QHS PO 06/15/20 22:00 06/19/20 19:58 Levetiracetam (Keppra) 500 mg BID PO 06/15/20 22:00 06/19/20 20:00 Lorazepam (Ativan) 1 mg PRN BID PRN PO ANXIETY / AGITATION 06/15/20 21:15 06/17/20 10:47 Al Hydroxide/Mg Hydroxide (Mylanta Plus Xs) 30 ml PRN AFTMEALHC PRN PO DYSPEPSIA 06/15/20 21:15 06/17/20 18:25 Magnesium Hydroxide (Milk Of Magnesia) 2,400 mg PRN DAILY PRN PO CONSTIPATION 06/15/20 21:15 Olanzapine (ZyPREXA ZYDIS) 10 mg BID PO 06/15/20 22:00 06/19/20 19:58 Phenytoin Sodium (Dilantin) 100 mg DAILY PO 06/16/20 09:00 06/19/20 08:48 Prazosin HCl (Minipress) 1 mg QHS PO 06/15/20 22:00 06/19/20 20:07 Quetiapine Fumarate (SEROquel) 50 mg BID94 PO 06/16/20 09:00 06/19/20 16:12 Sertraline HCl (Zoloft) 50 mg DAILY PO 06/16/20 09:00 06/19/20 08:49 Sucralfate (Carafate) 1 gm HS PO 06/15/20 22:00 06/19/20 19:58 Clozapine (Clozaril) 200 mg DAILY PO 06/16/20 09:00 06/19/20 08:48 Clozapine (Clozaril) 600 mg QHS PO 06/15/20 22:00 06/19/20 19:59 Hydroxyzine Pamoate (Vistaril) 25 mg BID PO 06/15/20 22:00 06/19/20 20:07 Lactulose (Lactulose) 20 gm TID PO 06/16/20 09:00 06/19/20 20:00 Levothyroxine Sodium (Synthroid) 125 mcg DAILY06 PO 06/16/20 06:00 06/20/20 05:45 Loperamide HCl (Imodium) 2 mg PRN DAILY PRN PO loose stools 06/15/20 22:00 Multi-Ingredient Ointment (Analgesic [place]) 1 dennis PRN QID PRN TP MUSCLE PAIN 06/15/20 22:15 Mirabegron (Myrbetriq) 50 mg QHS PO 06/15/20 22:00 06/19/20 20:09 Multivitamins/ Calcium (Thera-M Plus) 1 tab DAILY PO 06/16/20 09:00 06/19/20 08:48 Pantoprazole Sodium (Protonix) 40 mg DAILYAC PO 06/16/20 07:30 06/19/20 08:48 Phenytoin Sodium (Dilantin) 200 mg HS PO 06/15/20 22:00 06/19/20 19:55 Non-Formulary Medication (Quetiapine Fumarate (Seroquel Xr)) 600 mg QHS PO 06/16/20 21:00 06/16/20 17:14 DC Non-Formulary Medication (Tiagabine Hcl (Gabitril)) 4 mg TID PO 06/16/20 09:00 06/16/20 11:26 DC Olanzapine (ZyPREXA ZYDIS) 5 mg PRN Q2HR PRN PO PSYCHOSIS 06/16/20 11:30 06/18/20 14:47 Tiagabine HCl (Gabitril) 4 mg TID PO 06/16/20 14:00 06/19/20 20:10 Quetiapine Fumarate (SEROquel) 600 mg QHS PO 06/16/20 21:00 06/19/20 19:58 Divalproex Sodium (Depakote Er) 500 mg HS PO 06/16/20 21:00 06/17/20 02:14 DC 06/16/20 20:44 Divalproex Sodium (Depakote Sprinkles) 500 mg QHS PO 06/17/20 21:00 06/19/20 17:09 DC 06/18/20 19:40 Divalproex Sodium (Depakote Sprinkles) 500 mg BID PO 06/19/20 21:00 06/19/20 19:58 Current Medications Medications (Trade) Dose Ordered Sig/Edenilson Route PRN Reason Start Time Stop Time Status Last Admin Dose Admin Divalproex Sodium (Depakote Sprinkles) 500 mg BID PO 06/19/20 21:00 06/19/20 19:58 I have reviewed the current psychotropics carefully including drug interactions. Risk benefit ratio favors no change other than as noted in my dictated progress note. Diagnosis: Problems: (1) Anxiety disorder, unspecified (2) Intellectual disability (3) Bipolar disorder, curr episode mixed, severe, with psychotic features (4) Dementia in Alzheimer's disease with delusions (5) Impulse control disorder (6) Schizoaffective disorder, chronic condition with acute exacerbation STEVEN AYALA MD Jun 20, 2020 09:05
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
[2020-06-20] MEDS: PHENYTOIN SODIUM EXTENDED 100 MG CAPSULE PO SCH ×2 (10:53→20:55)
[2020-06-20] MEDS: DIVALPROEX 125 MG CAP.SPRINK PO SCH ×2 (10:54→21:03)
[2020-06-20] MEDS: MULTIVITAMIN with MINERAL TABLET. PO SCH (10:54)
[2020-06-20] MEDS: hydrOXYzine PAMOATE 25 MG CAPSULE PO SCH ×2 (10:54→20:57)
[2020-06-20] MEDS: PANTOPRAZOLE 40 MG TABLET. PO SCH (10:54)
[2020-06-20] MEDS: levETIRAcetam 500 MG TABLET PO SCH ×2 (10:54→21:02)
[2020-06-20] MEDS: QUEtiapine 50 MG TABLET. PO SCH ×2 (10:54→16:00)
[2020-06-20] MEDS: cloZAPine 100 MG TABLET PO SCH ×2 (10:55→20:57)
[2020-06-20] MEDS: LACTULOSE 20 GM/30 ML SOLUTION. PO SCH ×3 (10:55→20:53)
[2020-06-20] MEDS: SERTRALINE 50 MG TABLET. PO SCH (10:55)
[2020-06-20 15:43] VITALS: BP 148/78
--- NOTE | 2020-06-20 17:42 | NUR ---
Patient in bed at time of assessment. Patient stays in bed most of the day. He is demanding and asks for help quite often through out the day. Patient is alert and oriented and has no complaints at this time. Patient takes medications whole with no problems. There are no further concerns at this time.
[2020-06-20] MEDS: QUEtiapine 100 MG TABLET. PO SCH (20:55)
[2020-06-20] MEDS: ATORVASTATIN CALCIUM 10 MG TABLET. PO SCH (20:56)
[2020-06-20] MEDS: SUCRALFATE 1 GM TABLET. PO SCH (20:57)
[2020-06-20] MEDS: PRAZOSIN 1 MG CAPSULE. PO SCH (20:57)
[2020-06-20] MEDS: MIRABEGRON 25 MG TAB.ER.24H PO SCH (21:02)
[2020-06-20] MEDS: FENOFIBRATE NANOCRYSTALLIZED 145 MG TABLET PO SCH (21:03)
--- NOTE | 2020-06-20 21:13 | PDOC ---
Exam Note: Chad Note: Please also refer to the separate dictated note~for this date of service dictated separately.~Patient seen individually. Discussed the patient with Nursing staff reviewed the chart.~Reviewed interim history and current functioning. Reviewed vital signs,~Labs/ Radiology~and current medications noted below. Continue current treatment with the changes noted in the dictated addendum note Assessment: Vital Signs/I&O: Vital Signs Date Time Temp Pulse Resp B/P (MAP) Pulse Ox O2 Delivery O2 Flow Rate FiO2 06/20/20 20:57 81 148/78 06/20/20 15:43 97.1 18 97 06/20/20 06:26 Room Air I & O 06/19/20 06/19/20 06/20/20 15:00 23:00 07:00 Intake Total 120 ml 480 ml 100 ml Balance 120 ml 480 ml 100 ml Current Medications: Meds: Current Medications Medications (Trade) Dose Ordered Sig/Edenilson Route PRN Reason Start Time Stop Time Status Last Admin Dose Admin Acetaminophen (Tylenol) 500 mg PRN Q4HRS PRN PO PAIN 06/15/20 21:15 06/18/20 14:09 Atorvastatin Calcium (Lipitor) 40 mg QHS PO 06/15/20 22:00 06/20/20 20:56 Clonazepam (KlonoPIN) 0.5 mg BID PO 06/15/20 22:00 06/20/20 21:04 Fenofibrate (Tricor) 145 mg QHS PO 06/15/20 22:00 06/20/20 21:03 Levetiracetam (Keppra) 500 mg BID PO 06/15/20 22:00 06/20/20 21:02 Lorazepam (Ativan) 1 mg PRN BID PRN PO ANXIETY / AGITATION 06/15/20 21:15 06/17/20 10:47 Al Hydroxide/Mg Hydroxide (Mylanta Plus Xs) 30 ml PRN AFTMEALHC PRN PO DYSPEPSIA 06/15/20 21:15 06/17/20 18:25 Magnesium Hydroxide (Milk Of Magnesia) 2,400 mg PRN DAILY PRN PO CONSTIPATION 06/15/20 21:15 Olanzapine (ZyPREXA ZYDIS) 10 mg BID PO 06/15/20 22:00 06/20/20 20:57 Phenytoin Sodium (Dilantin) 100 mg DAILY PO 06/16/20 09:00 06/20/20 10:53 Prazosin HCl (Minipress) 1 mg QHS PO 06/15/20 22:00 06/20/20 20:57 Quetiapine Fumarate (SEROquel) 50 mg BID94 PO 06/16/20 09:00 06/20/20 16:00 Sertraline HCl (Zoloft) 50 mg DAILY PO 06/16/20 09:00 06/20/20 10:55 Sucralfate (Carafate) 1 gm HS PO 06/15/20 22:00 06/20/20 20:57 Clozapine (Clozaril) 200 mg DAILY PO 06/16/20 09:00 06/20/20 10:55 Clozapine (Clozaril) 600 mg QHS PO 06/15/20 22:00 06/20/20 20:57 Hydroxyzine Pamoate (Vistaril) 25 mg BID PO 06/15/20 22:00 06/20/20 20:57 Lactulose (Lactulose) 20 gm TID PO 06/16/20 09:00 06/20/20 20:53 Levothyroxine Sodium (Synthroid) 125 mcg DAILY06 PO 06/16/20 06:00 06/20/20 05:45 Loperamide HCl (Imodium) 2 mg PRN DAILY PRN PO loose stools 06/15/20 22:00 Multi-Ingredient Ointment (Analgesic [place]) 1 dennis PRN QID PRN TP MUSCLE PAIN 06/15/20 22:15 Mirabegron (Myrbetriq) 50 mg QHS PO 06/15/20 22:00 06/20/20 21:02 Multivitamins/ Calcium (Thera-M Plus) 1 tab DAILY PO 06/16/20 09:00 06/20/20 10:54 Pantoprazole Sodium (Protonix) 40 mg DAILYAC PO 06/16/20 07:30 06/20/20 10:54 Phenytoin Sodium (Dilantin) 200 mg HS PO 06/15/20 22:00 06/20/20 20:55 Non-Formulary Medication (Quetiapine Fumarate (Seroquel Xr)) 600 mg QHS PO 06/16/20 21:00 06/16/20 17:14 DC Non-Formulary Medication (Tiagabine Hcl (Gabitril)) 4 mg TID PO 06/16/20 09:00 06/16/20 11:26 DC Olanzapine (ZyPREXA ZYDIS) 5 mg PRN Q2HR PRN PO PSYCHOSIS 06/16/20 11:30 06/18/20 14:47 Tiagabine HCl (Gabitril) 4 mg TID PO 06/16/20 14:00 06/20/20 21:03 Quetiapine Fumarate (SEROquel) 600 mg QHS PO 06/16/20 21:00 06/20/20 20:55 Divalproex Sodium (Depakote Er) 500 mg HS PO 06/16/20 21:00 06/17/20 02:14 DC 06/16/20 20:44 Divalproex Sodium (Depakote Sprinkles) 500 mg QHS PO 06/17/20 21:00 06/19/20 17:09 DC 06/18/20 19:40 Divalproex Sodium (Depakote Sprinkles) 500 mg BID PO 06/19/20 21:00 06/20/20 21:03 I have reviewed the current psychotropics carefully including drug interactions. Risk benefit ratio favors no change other than as noted in my dictated progress note. Diagnosis: Problems: (1) Anxiety disorder, unspecified (2) Intellectual disability (3) Bipolar disorder, curr episode mixed, severe, with psychotic features (4) Dementia in Alzheimer's disease with delusions (5) Impulse control disorder (6) Schizoaffective disorder, chronic condition with acute exacerbation STEVEN AYALA MD Jun 20, 2020 21:13
[2020-06-20 22:14] LABS: BASO # 0.1 x10^3/uL (0.0-0.2); BASO % 1 % (0-3); EOS # 0.1 x10^3/uL (0.0-0.7); EOS % 1 % (0-3); HEMATOCRIT 38.6 % (39.0-53.0); LYMPH # 1.8 x10^3/uL (1.0-4.8); LYMPH % 26 % (24-48); MEAN CORPUSCULAR HEMOGLOBIN 29 pg (25-35); MEAN CORPUSCULAR HGB CONC 34 g/dL (31-37); MEAN CORPUSCULAR VOLUME 87 fL (79-100); MONO # 0.7 x10^3/uL (0.0-1.1); MONO % 10 % (0-9); NEUT # 4.4 x10^3uL (1.8-7.7); NEUT % 62 % (31-73); PLATELET COUNT 278 x10^3/uL (140-400); RED BLOOD COUNT 4.45 x10^6/uL (4.30-5.70); RED CELL DISTRIBUTION WIDTH 14.3 % (11.5-14.5); WHITE BLOOD COUNT 7.1 x10^3/uL (4.0-11.0)
[2020-06-20 22:28] LABS: ALBUMIN 3.3 g/dL (3.4-5.0); ALBUMIN/GLOBULIN RATIO 0.8 (1.0-1.7); CALCIUM 8.4 mg/dL (8.5-10.1); POTASSIUM 3.6 mmol/L (3.5-5.1); TOTAL BILIRUBIN 0.1 mg/dL (0.2-1.0); TOTAL PROTEIN 7.7 g/dL (6.4-8.2)
--- NOTE | 2020-06-21 03:47 | NUR ---
Nursing Note The patient was located in his room for his assessment and medication pass. The patient took his medication crushed in pudding. The patient was drowsy during his assessment but was able to answer name and hospital. the patient complained of nausea and did vomit one time this shift. Orders were given by Dr. Manpreet Seay. The patient was sleeping by the next time this nurse checked on him .The patient was compliant with cares.
[2020-06-21] MEDS: LEVOTHYROXINE 125 MCG TABLET PO SCH (05:33)
[2020-06-21 06:20] VITALS: BP 123/76
--- NOTE | 2020-06-21 07:47 | PDOC ---
Exam Note: Chad Note: This note is a late entry for 06/20/2020 covers elements not covered in my initial note. Subjective: The patient was seen face to face in the evening of 06/20/2020 with Ileana MCINTOSH. Discussed with nursing staff, reviewed the chart. The patient slept 7 hours previous night. Overall he remains withdrawn, somewhat anxious, labile in his mood. He has some emesis today. We will defer to Dr. Case. Generally appetite is better and he ate a meal with speech therapy staff. Review of Systems: No CV, , pulmonary, eye, ENT system symptoms on review. Mental Status Exam: The patient is reasonably oriented. Speech is coherent, pressured. Abstraction is fair. Computation is impaired. Language function is intact. Attention span is short. No suicidal or homicidal ideation. Laboratory Data: Reviewed. Impression: Schizoaffective disorder, bipolar type mixed with psychotic features. Anxiety disorder unspecified. Impulse control disorder unspecified. Plan: No change from initial note. Assessment: Vital Signs/I&O: Vital Signs Date Time Temp Pulse Resp B/P (MAP) Pulse Ox O2 Delivery O2 Flow Rate FiO2 06/21/20 06:20 97.5 81 19 123/76 (92) 97 Room Air I & O 06/20/20 06/20/20 06/21/20 15:00 23:00 07:00 Intake Total 240 ml 240 ml Balance 240 ml 240 ml Labs: Laboratory Tests Test 06/20/20 22:08 White Blood Count 7.1 x10^3/uL (4.0-11.0) Red Blood Count 4.45 x10^6/uL (4.30-5.70) Hemoglobin 13.0 g/dL (13.0-17.5) Hematocrit 38.6 % (39.0-53.0) L Mean Corpuscular Volume 87 fL (79-100) Mean Corpuscular Hemoglobin 29 pg (25-35) Mean Corpuscular Hemoglobin Concent 34 g/dL (31-37) Red Cell Distribution Width 14.3 % (11.5-14.5) Platelet Count 278 x10^3/uL (140-400) Neutrophils (%) (Auto) 62 % (31-73) Lymphocytes (%) (Auto) 26 % (24-48) Monocytes (%) (Auto) 10 % (0-9) H Eosinophils (%) (Auto) 1 % (0-3) Basophils (%) (Auto) 1 % (0-3) Neutrophils # (Auto) 4.4 x10^3uL (1.8-7.7) Lymphocytes # (Auto) 1.8 x10^3/uL (1.0-4.8) Monocytes # (Auto) 0.7 x10^3/uL (0.0-1.1) Eosinophils # (Auto) 0.1 x10^3/uL (0.0-0.7) Basophils # (Auto) 0.1 x10^3/uL (0.0-0.2) Sodium Level 142 mmol/L (136-145) Potassium Level 3.6 mmol/L (3.5-5.1) Chloride Level 106 mmol/L (98-107) Carbon Dioxide Level 25 mmol/L (21-32) Anion Gap 11 (6-14) Blood Urea Nitrogen 10 mg/dL (8-26) Creatinine 1.0 mg/dL (0.7-1.3) Estimated GFR (Cockcroft-Gault) 77.0 BUN/Creatinine Ratio 10 (6-20) Glucose Level 115 mg/dL (70-99) H Calcium Level 8.4 mg/dL (8.5-10.1) L Total Bilirubin 0.1 mg/dL (0.2-1.0) L Aspartate Amino Transferase (AST) 19 U/L (15-37) Alanine Aminotransferase (ALT) 22 U/L (16-63) Alkaline Phosphatase 75 U/L (46-116) Total Protein 7.7 g/dL (6.4-8.2) Albumin 3.3 g/dL (3.4-5.0) L Albumin/Globulin Ratio 0.8 (1.0-1.7) L Lipase 130 U/L (73-393) Current Medications: Meds: Laboratory Tests Test 06/20/20 22:08 White Blood Count 7.1 x10^3/uL Red Blood Count 4.45 x10^6/uL Hemoglobin 13.0 g/dL Hematocrit 38.6 % Mean Corpuscular Volume 87 fL Mean Corpuscular Hemoglobin 29 pg Mean Corpuscular Hemoglobin Concent 34 g/dL Red Cell Distribution Width 14.3 % Platelet Count 278 x10^3/uL Neutrophils (%) (Auto) 62 % Lymphocytes (%) (Auto) 26 % Monocytes (%) (Auto) 10 % Eosinophils (%) (Auto) 1 % Basophils (%) (Auto) 1 % Neutrophils # (Auto) 4.4 x10^3uL Lymphocytes # (Auto) 1.8 x10^3/uL Monocytes # (Auto) 0.7 x10^3/uL Eosinophils # (Auto) 0.1 x10^3/uL Basophils # (Auto) 0.1 x10^3/uL Sodium Level 142 mmol/L Potassium Level 3.6 mmol/L Chloride Level 106 mmol/L Carbon Dioxide Level 25 mmol/L Anion Gap 11 Blood Urea Nitrogen 10 mg/dL Creatinine 1.0 mg/dL Estimated GFR (Cockcroft-Gault) 77.0 BUN/Creatinine Ratio 10 Glucose Level 115 mg/dL Calcium Level 8.4 mg/dL Total Bilirubin 0.1 mg/dL Aspartate Amino Transf (AST/SGOT) 19 U/L Alanine Aminotransferase (ALT/SGPT) 22 U/L Alkaline Phosphatase 75 U/L Total Protein 7.7 g/dL Albumin 3.3 g/dL Albumin/Globulin Ratio 0.8 Lipase 130 U/L Current Medications Medications (Trade) Dose Ordered Sig/Edenilson Route PRN Reason Start Time Stop Time Status Last Admin Dose Admin Acetaminophen (Tylenol) 500 mg PRN Q4HRS PRN PO PAIN 06/15/20 21:15 06/18/20 14:09 Atorvastatin Calcium (Lipitor) 40 mg QHS PO 06/15/20 22:00 06/20/20 20:56 Clonazepam (KlonoPIN) 0.5 mg BID PO 06/15/20 22:00 06/20/20 21:04 Fenofibrate (Tricor) 145 mg QHS PO 06/15/20 22:00 06/20/20 21:03 Levetiracetam (Keppra) 500 mg BID PO 06/15/20 22:00 06/20/20 21:02 Lorazepam (Ativan) 1 mg PRN BID PRN PO ANXIETY / AGITATION 06/15/20 21:15 06/17/20 10:47 Al Hydroxide/Mg Hydroxide (Mylanta Plus Xs) 30 ml PRN AFTMEALHC PRN PO DYSPEPSIA 06/15/20 21:15 06/17/20 18:25 Magnesium Hydroxide (Milk Of Magnesia) 2,400 mg PRN DAILY PRN PO CONSTIPATION 06/15/20 21:15 Olanzapine (ZyPREXA ZYDIS) 10 mg BID PO 06/15/20 22:00 06/20/20 20:57 Phenytoin Sodium (Dilantin) 100 mg DAILY PO 06/16/20 09:00 06/20/20 10:53 Prazosin HCl (Minipress) 1 mg QHS PO 06/15/20 22:00 06/20/20 20:57 Quetiapine Fumarate (SEROquel) 50 mg BID94 PO 06/16/20 09:00 06/20/20 16:00 Sertraline HCl (Zoloft) 50 mg DAILY PO 06/16/20 09:00 06/20/20 10:55 Sucralfate (Carafate) 1 gm HS PO 06/15/20 22:00 06/20/20 20:57 Clozapine (Clozaril) 200 mg DAILY PO 06/16/20 09:00 06/20/20 10:55 Clozapine (Clozaril) 600 mg QHS PO 06/15/20 22:00 06/20/20 20:57 Hydroxyzine Pamoate (Vistaril) 25 mg BID PO 06/15/20 22:00 06/20/20 20:57 Lactulose (Lactulose) 20 gm TID PO 06/16/20 09:00 06/20/20 20:53 Levothyroxine Sodium (Synthroid) 125 mcg DAILY06 PO 06/16/20 06:00 06/21/20 05:33 Loperamide HCl (Imodium) 2 mg PRN DAILY PRN PO loose stools 06/15/20 22:00 Multi-Ingredient Ointment (Analgesic [place]) 1 dennis PRN QID PRN TP MUSCLE PAIN 06/15/20 22:15 Mirabegron (Myrbetriq) 50 mg QHS PO 06/15/20 22:00 06/20/20 21:02 Multivitamins/ Calcium (Thera-M Plus) 1 tab DAILY PO 06/16/20 09:00 06/20/20 10:54 Pantoprazole Sodium (Protonix) 40 mg DAILYAC PO 06/16/20 07:30 06/20/20 10:54 Phenytoin Sodium (Dilantin) 200 mg HS PO 06/15/20 22:00 06/20/20 20:55 Non-Formulary Medication (Quetiapine Fumarate (Seroquel Xr)) 600 mg QHS PO 06/16/20 21:00 06/16/20 17:14 DC Non-Formulary Medication (Tiagabine Hcl (Gabitril)) 4 mg TID PO 06/16/20 09:00 06/16/20 11:26 DC Olanzapine (ZyPREXA ZYDIS) 5 mg PRN Q2HR PRN PO PSYCHOSIS 06/16/20 11:30 06/18/20 14:47 Tiagabine HCl (Gabitril) 4 mg TID PO 06/16/20 14:00 06/20/20 21:03 Quetiapine Fumarate (SEROquel) 600 mg QHS PO 06/16/20 21:00 06/20/20 20:55 Divalproex Sodium (Depakote Er) 500 mg HS PO 06/16/20 21:00 06/17/20 02:14 DC 06/16/20 20:44 Divalproex Sodium (Depakote Sprinkles) 500 mg QHS PO 06/17/20 21:00 06/19/20 17:09 DC 06/18/20 19:40 Divalproex Sodium (Depakote Sprinkles) 500 mg BID PO 06/19/20 21:00 06/20/20 21:03 Ondansetron HCl (Zofran Odt) 4 mg PRN Q4HRS PRN PO NAUSEA/VOMITING 06/20/20 21:45 I have reviewed the current psychotropics carefully including drug interactions. Risk benefit ratio favors no change other than as noted in my dictated progress note. Diagnosis: Problems: (1) Anxiety disorder, unspecified (2) Intellectual disability (3) Bipolar disorder, curr episode mixed, severe, with psychotic features (4) Dementia in Alzheimer's disease with delusions (5) Impulse control disorder (6) Schizoaffective disorder, chronic condition with acute exacerbation STEVEN AYALA MD Jun 21, 2020 07:47
[2020-06-21] MEDS: clonazePAM 0.5 MG TABLET PO SCH ×2 (09:00→19:53)
[2020-06-21] MEDS: MIRABEGRON 25 MG TAB.ER.24H PO SCH (10:04)
[2020-06-21] MEDS: TIAGABINE 4 MG PO SCH ×3 (10:04→19:53)
[2020-06-21] MEDS: QUEtiapine 50 MG TABLET. PO SCH ×2 (10:05→16:00)
[2020-06-21] MEDS: cloZAPine 100 MG TABLET PO SCH ×2 (10:05→19:51)
[2020-06-21] MEDS: PANTOPRAZOLE 40 MG TABLET. PO SCH (10:05)
[2020-06-21] MEDS: SERTRALINE 50 MG TABLET. PO SCH (10:05)
[2020-06-21] MEDS: levETIRAcetam 500 MG TABLET PO SCH ×2 (10:05→19:53)
[2020-06-21] MEDS: PHENYTOIN SODIUM EXTENDED 100 MG CAPSULE PO SCH ×2 (10:05→19:52)
[2020-06-21] MEDS: hydrOXYzine PAMOATE 25 MG CAPSULE PO SCH ×2 (10:05→19:54)
[2020-06-21] MEDS: MULTIVITAMIN with MINERAL TABLET. PO SCH (10:05)
[2020-06-21] MEDS: DIVALPROEX 125 MG CAP.SPRINK PO SCH ×2 (10:06→19:55)
[2020-06-21] MEDS: LACTULOSE 20 GM/30 ML SOLUTION. PO SCH ×3 (10:06→19:51)
[2020-06-21 16:23] VITALS: BP 128/74
[2020-06-21] MEDS: ONDANSETRON ODT 4 MG TAB.RAPDIS PO PRN (16:26)
[2020-06-21] MEDS: SUCRALFATE 1 GM TABLET. PO SCH (19:52)
[2020-06-21] MEDS: PRAZOSIN 1 MG CAPSULE. PO SCH (19:53)
[2020-06-21] MEDS: QUEtiapine 100 MG TABLET. PO SCH (19:54)
[2020-06-21] MEDS: ATORVASTATIN CALCIUM 10 MG TABLET. PO SCH (19:54)
[2020-06-21] MEDS: FENOFIBRATE NANOCRYSTALLIZED 145 MG TABLET PO SCH (19:55)
--- NOTE | 2020-06-21 21:12 | PDOC ---
Exam Note: Chad Note: Please also refer to the separate dictated note~for this date of service dictated separately.~Patient seen individually. Discussed the patient with Nursing staff reviewed the chart.~Reviewed interim history and current functioning. Reviewed vital signs,~Labs/ Radiology~and current medications noted below. Continue current treatment with the changes noted in the dictated addendum note Assessment: Vital Signs/I&O: Vital Signs Date Time Temp Pulse Resp B/P (MAP) Pulse Ox O2 Delivery O2 Flow Rate FiO2 06/21/20 19:53 110 128/74 06/21/20 16:23 98.4 20 98 Room Air I & O 06/20/20 06/20/20 06/21/20 15:00 23:00 07:00 Intake Total 240 ml 240 ml Balance 240 ml 240 ml Labs: Laboratory Tests Test 06/20/20 22:08 White Blood Count 7.1 x10^3/uL (4.0-11.0) Red Blood Count 4.45 x10^6/uL (4.30-5.70) Hemoglobin 13.0 g/dL (13.0-17.5) Hematocrit 38.6 % (39.0-53.0) L Mean Corpuscular Volume 87 fL (79-100) Mean Corpuscular Hemoglobin 29 pg (25-35) Mean Corpuscular Hemoglobin Concent 34 g/dL (31-37) Red Cell Distribution Width 14.3 % (11.5-14.5) Platelet Count 278 x10^3/uL (140-400) Neutrophils (%) (Auto) 62 % (31-73) Lymphocytes (%) (Auto) 26 % (24-48) Monocytes (%) (Auto) 10 % (0-9) H Eosinophils (%) (Auto) 1 % (0-3) Basophils (%) (Auto) 1 % (0-3) Neutrophils # (Auto) 4.4 x10^3uL (1.8-7.7) Lymphocytes # (Auto) 1.8 x10^3/uL (1.0-4.8) Monocytes # (Auto) 0.7 x10^3/uL (0.0-1.1) Eosinophils # (Auto) 0.1 x10^3/uL (0.0-0.7) Basophils # (Auto) 0.1 x10^3/uL (0.0-0.2) Sodium Level 142 mmol/L (136-145) Potassium Level 3.6 mmol/L (3.5-5.1) Chloride Level 106 mmol/L (98-107) Carbon Dioxide Level 25 mmol/L (21-32) Anion Gap 11 (6-14) Blood Urea Nitrogen 10 mg/dL (8-26) Creatinine 1.0 mg/dL (0.7-1.3) Estimated GFR (Cockcroft-Gault) 77.0 BUN/Creatinine Ratio 10 (6-20) Glucose Level 115 mg/dL (70-99) H Calcium Level 8.4 mg/dL (8.5-10.1) L Total Bilirubin 0.1 mg/dL (0.2-1.0) L Aspartate Amino Transferase (AST) 19 U/L (15-37) Alanine Aminotransferase (ALT) 22 U/L (16-63) Alkaline Phosphatase 75 U/L (46-116) Total Protein 7.7 g/dL (6.4-8.2) Albumin 3.3 g/dL (3.4-5.0) L Albumin/Globulin Ratio 0.8 (1.0-1.7) L Lipase 130 U/L (73-393) Current Medications: Meds: Laboratory Tests Test 06/20/20 22:08 White Blood Count 7.1 x10^3/uL Red Blood Count 4.45 x10^6/uL Hemoglobin 13.0 g/dL Hematocrit 38.6 % Mean Corpuscular Volume 87 fL Mean Corpuscular Hemoglobin 29 pg Mean Corpuscular Hemoglobin Concent 34 g/dL Red Cell Distribution Width 14.3 % Platelet Count 278 x10^3/uL Neutrophils (%) (Auto) 62 % Lymphocytes (%) (Auto) 26 % Monocytes (%) (Auto) 10 % Eosinophils (%) (Auto) 1 % Basophils (%) (Auto) 1 % Neutrophils # (Auto) 4.4 x10^3uL Lymphocytes # (Auto) 1.8 x10^3/uL Monocytes # (Auto) 0.7 x10^3/uL Eosinophils # (Auto) 0.1 x10^3/uL Basophils # (Auto) 0.1 x10^3/uL Sodium Level 142 mmol/L Potassium Level 3.6 mmol/L Chloride Level 106 mmol/L Carbon Dioxide Level 25 mmol/L Anion Gap 11 Blood Urea Nitrogen 10 mg/dL Creatinine 1.0 mg/dL Estimated GFR (Cockcroft-Gault) 77.0 BUN/Creatinine Ratio 10 Glucose Level 115 mg/dL Calcium Level 8.4 mg/dL Total Bilirubin 0.1 mg/dL Aspartate Amino Transf (AST/SGOT) 19 U/L Alanine Aminotransferase (ALT/SGPT) 22 U/L Alkaline Phosphatase 75 U/L Total Protein 7.7 g/dL Albumin 3.3 g/dL Albumin/Globulin Ratio 0.8 Lipase 130 U/L Current Medications Medications (Trade) Dose Ordered Sig/Edenilson Route PRN Reason Start Time Stop Time Status Last Admin Dose Admin Acetaminophen (Tylenol) 500 mg PRN Q4HRS PRN PO PAIN 06/15/20 21:15 06/18/20 14:09 Atorvastatin Calcium (Lipitor) 40 mg QHS PO 06/15/20 22:00 06/21/20 19:54 Clonazepam (KlonoPIN) 0.5 mg BID PO 06/15/20 22:00 06/21/20 19:53 Fenofibrate (Tricor) 145 mg QHS PO 06/15/20 22:00 06/21/20 19:55 Levetiracetam (Keppra) 500 mg BID PO 06/15/20 22:00 06/21/20 19:53 Lorazepam (Ativan) 1 mg PRN BID PRN PO ANXIETY / AGITATION 06/15/20 21:15 06/17/20 10:47 Al Hydroxide/Mg Hydroxide (Mylanta Plus Xs) 30 ml PRN AFTMEALHC PRN PO DYSPEPSIA 06/15/20 21:15 06/17/20 18:25 Magnesium Hydroxide (Milk Of Magnesia) 2,400 mg PRN DAILY PRN PO CONSTIPATION 06/15/20 21:15 Olanzapine (ZyPREXA ZYDIS) 10 mg BID PO 06/15/20 22:00 06/21/20 19:55 Phenytoin Sodium (Dilantin) 100 mg DAILY PO 06/16/20 09:00 06/21/20 10:05 Prazosin HCl (Minipress) 1 mg QHS PO 06/15/20 22:00 06/21/20 19:53 Quetiapine Fumarate (SEROquel) 50 mg BID94 PO 06/16/20 09:00 06/21/20 16:00 Sertraline HCl (Zoloft) 50 mg DAILY PO 06/16/20 09:00 06/21/20 10:05 Sucralfate (Carafate) 1 gm HS PO 06/15/20 22:00 06/21/20 19:52 Clozapine (Clozaril) 200 mg DAILY PO 06/16/20 09:00 06/21/20 10:05 Clozapine (Clozaril) 600 mg QHS PO 06/15/20 22:00 06/21/20 19:51 Hydroxyzine Pamoate (Vistaril) 25 mg BID PO 06/15/20 22:00 06/21/20 19:54 Lactulose (Lactulose) 20 gm TID PO 06/16/20 09:00 06/21/20 19:51 Levothyroxine Sodium (Synthroid) 125 mcg DAILY06 PO 06/16/20 06:00 06/21/20 05:33 Loperamide HCl (Imodium) 2 mg PRN DAILY PRN PO loose stools 06/15/20 22:00 Multi-Ingredient Ointment (Analgesic [place]) 1 dennis PRN QID PRN TP MUSCLE PAIN 06/15/20 22:15 Mirabegron (Myrbetriq) 50 mg QHS PO 06/15/20 22:00 06/21/20 10:04 Multivitamins/ Calcium (Thera-M Plus) 1 tab DAILY PO 06/16/20 09:00 06/21/20 10:05 Pantoprazole Sodium (Protonix) 40 mg DAILYAC PO 06/16/20 07:30 06/21/20 10:05 Phenytoin Sodium (Dilantin) 200 mg HS PO 06/15/20 22:00 06/21/20 19:52 Non-Formulary Medication (Quetiapine Fumarate (Seroquel Xr)) 600 mg QHS PO 06/16/20 21:00 06/16/20 17:14 DC Non-Formulary Medication (Tiagabine Hcl (Gabitril)) 4 mg TID PO 06/16/20 09:00 06/16/20 11:26 DC Olanzapine (ZyPREXA ZYDIS) 5 mg PRN Q2HR PRN PO PSYCHOSIS 06/16/20 11:30 06/18/20 14:47 Tiagabine HCl (Gabitril) 4 mg TID PO 06/16/20 14:00 06/21/20 19:53 Quetiapine Fumarate (SEROquel) 600 mg QHS PO 06/16/20 21:00 06/21/20 19:54 Divalproex Sodium (Depakote Er) 500 mg HS PO 06/16/20 21:00 06/17/20 02:14 DC 06/16/20 20:44 Divalproex Sodium (Depakote Sprinkles) 500 mg QHS PO 06/17/20 21:00 06/19/20 17:09 DC 06/18/20 19:40 Divalproex Sodium (Depakote Sprinkles) 500 mg BID PO 06/19/20 21:00 06/21/20 19:55 Ondansetron HCl (Zofran Odt) 4 mg PRN Q4HRS PRN PO NAUSEA/VOMITING 06/20/20 21:45 06/21/20 16:26 Current Medications Medications (Trade) Dose Ordered Sig/Edenilson Route PRN Reason Start Time Stop Time Status Last Admin Dose Admin Ondansetron HCl (Zofran Odt) 4 mg PRN Q4HRS PRN PO NAUSEA/VOMITING 06/20/20 21:45 06/21/20 16:26 I have reviewed the current psychotropics carefully including drug interactions. Risk benefit ratio favors no change other than as noted in my dictated progress note. Diagnosis: Problems: (1) Anxiety disorder, unspecified (2) Intellectual disability (3) Bipolar disorder, curr episode mixed, severe, with psychotic features (4) Dementia in Alzheimer's disease with delusions (5) Impulse control disorder (6) Schizoaffective disorder, chronic condition with acute exacerbation STEVEN AYALA MD Jun 21, 2020 21:11
--- NOTE | 2020-06-21 22:49 | NUR ---
Patient is located in his room on assumption of care, awake in bed. Compliant with assessments and medications crushed in applesauce. No agitation. Patient denies any hallucinations or delusions so far this shift. Denies any pain or discomfort. He appears to be sleeping comfortably at present time. Will continue to monitor.
[2020-06-22] MEDS: LORazepam 1 MG TABLET PO PRN ×2 (00:38→14:06)
[2020-06-22] MEDS: LEVOTHYROXINE 125 MCG TABLET PO SCH (05:28)
[2020-06-22 06:20] VITALS: BP 95/54
[2020-06-22] MEDS: cloZAPine 100 MG TABLET PO SCH ×2 (08:03→20:11)
[2020-06-22] MEDS: LACTULOSE 20 GM/30 ML SOLUTION. PO SCH ×3 (08:03→20:01)
[2020-06-22] MEDS: levETIRAcetam 500 MG TABLET PO SCH ×2 (08:03→20:07)
[2020-06-22] MEDS: clonazePAM 0.5 MG TABLET PO SCH ×2 (08:04→20:05)
[2020-06-22] MEDS: MULTIVITAMIN with MINERAL TABLET. PO SCH (08:04)
[2020-06-22] MEDS: PHENYTOIN SODIUM EXTENDED 100 MG CAPSULE PO SCH ×2 (08:04→20:03)
[2020-06-22] MEDS: DIVALPROEX 125 MG CAP.SPRINK PO SCH ×2 (08:04→20:07)
[2020-06-22] MEDS: PANTOPRAZOLE 40 MG TABLET. PO SCH (08:04)
[2020-06-22] MEDS: SERTRALINE 50 MG TABLET. PO SCH (08:04)
[2020-06-22] MEDS: hydrOXYzine PAMOATE 25 MG CAPSULE PO SCH (08:05)
[2020-06-22] MEDS: QUEtiapine 50 MG TABLET. PO SCH ×2 (08:05→14:06)
[2020-06-22] MEDS: TIAGABINE 4 MG PO SCH ×3 (08:05→20:05)
--- NOTE | 2020-06-22 11:52 | NUR ---
Pt has slept most of the morning and almost into the afternoon. Upon waking he was complaint with medications and assessment. No SI/HI/VH/AH/pain at this time. Appropriate thus far. Encouragement provided. Will pass on to the next shift.
--- NOTE | 2020-06-22 14:33 | NUR ---
Shortly after lunch pt became hyperfixated on the condition of his bed and being tucked into bed. Staff attempted to tuck him in, but not to his satisfaction. Pt became agitated and exited his room to yell at staff. He threw a bedside table at the [facility] door, and was pounding his fists against the windows. He yelled at staff, "Do what I say, God dammit!" Staff escorted pt to quiet hallway for purpose of patient to regain composure and regulate his emotions in an environment with less stimuli. PRN Ativan 1 mg PO administered. Pt attempted to bargain with this nurse regarding his medication, stating he would not take the Ativan "until you help me with my bed." This nurse placed boundaries with pt, noting that his bed is a topic that causes him to become physically and verbally violent with staff, and for that purpose I was unwilling to further engage with him concerning a topic that will further upset or enrage him. Medication administered without further difficulty.
[2020-06-22 15:00] VITALS: BP 128/77
[2020-06-22] MEDS: MIRABEGRON 25 MG TAB.ER.24H PO SCH (20:06)
[2020-06-22] MEDS: FENOFIBRATE NANOCRYSTALLIZED 145 MG TABLET PO SCH (20:08)
[2020-06-22] MEDS: PRAZOSIN 1 MG CAPSULE. PO SCH (20:09)
[2020-06-22] MEDS: ATORVASTATIN CALCIUM 10 MG TABLET. PO SCH (20:10)
[2020-06-22] MEDS: SUCRALFATE 1 GM TABLET. PO SCH (20:10)
[2020-06-22] MEDS: QUEtiapine 100 MG TABLET. PO SCH (20:12)
--- NOTE | 2020-06-22 21:06 | PDOC ---
Exam Note: Chad Note: Please also refer to the separate dictated note~for this date of service dictated separately.~Patient seen individually. Discussed the patient with Nursing staff reviewed the chart.~Reviewed interim history and current functioning. Reviewed vital signs,~Labs/ Radiology~and current medications noted below. Continue current treatment with the changes noted in the dictated addendum note Assessment: Vital Signs/I&O: Vital Signs Date Time Temp Pulse Resp B/P (MAP) Pulse Ox O2 Delivery O2 Flow Rate FiO2 06/22/20 20:09 101 128/77 06/22/20 15:00 98.2 18 94 Room Air I & O 06/21/20 06/21/20 06/22/20 14:59 22:59 06:59 Intake Total 720 ml 360 ml Balance 720 ml 360 ml Current Medications: Meds: Current Medications Medications (Trade) Dose Ordered Sig/Edenilson Route PRN Reason Start Time Stop Time Status Last Admin Dose Admin Acetaminophen (Tylenol) 500 mg PRN Q4HRS PRN PO PAIN 06/15/20 21:15 06/18/20 14:09 Atorvastatin Calcium (Lipitor) 40 mg QHS PO 06/15/20 22:00 06/22/20 20:10 Clonazepam (KlonoPIN) 0.5 mg BID PO 06/15/20 22:00 06/22/20 20:05 Fenofibrate (Tricor) 145 mg QHS PO 06/15/20 22:00 06/22/20 20:08 Levetiracetam (Keppra) 500 mg BID PO 06/15/20 22:00 06/22/20 20:07 Lorazepam (Ativan) 1 mg PRN BID PRN PO ANXIETY / AGITATION 06/15/20 21:15 06/22/20 14:06 Al Hydroxide/Mg Hydroxide (Mylanta Plus Xs) 30 ml PRN AFTMEALHC PRN PO DYSPEPSIA 06/15/20 21:15 06/17/20 18:25 Magnesium Hydroxide (Milk Of Magnesia) 2,400 mg PRN DAILY PRN PO CONSTIPATION 06/15/20 21:15 Olanzapine (ZyPREXA ZYDIS) 10 mg BID PO 06/15/20 22:00 06/22/20 20:09 Phenytoin Sodium (Dilantin) 100 mg DAILY PO 06/16/20 09:00 06/22/20 08:04 Prazosin HCl (Minipress) 1 mg QHS PO 06/15/20 22:00 06/22/20 20:09 Quetiapine Fumarate (SEROquel) 50 mg BID94 PO 06/16/20 09:00 06/22/20 14:06 Sertraline HCl (Zoloft) 50 mg DAILY PO 06/16/20 09:00 06/22/20 08:04 Sucralfate (Carafate) 1 gm HS PO 06/15/20 22:00 06/22/20 20:10 Clozapine (Clozaril) 200 mg DAILY PO 06/16/20 09:00 06/22/20 08:03 Clozapine (Clozaril) 600 mg QHS PO 06/15/20 22:00 06/22/20 20:11 Hydroxyzine Pamoate (Vistaril) 25 mg BID PO 06/15/20 22:00 06/22/20 17:59 DC 06/22/20 08:05 Lactulose (Lactulose) 20 gm TID PO 06/16/20 09:00 06/22/20 20:01 Levothyroxine Sodium (Synthroid) 125 mcg DAILY06 PO 06/16/20 06:00 06/22/20 05:28 Loperamide HCl (Imodium) 2 mg PRN DAILY PRN PO loose stools 06/15/20 22:00 Multi-Ingredient Ointment (Analgesic [place]) 1 dennis PRN QID PRN TP MUSCLE PAIN 06/15/20 22:15 Mirabegron (Myrbetriq) 50 mg QHS PO 06/15/20 22:00 06/22/20 20:06 Multivitamins/ Calcium (Thera-M Plus) 1 tab DAILY PO 06/16/20 09:00 06/22/20 08:04 Pantoprazole Sodium (Protonix) 40 mg DAILYAC PO 06/16/20 07:30 06/22/20 08:04 Phenytoin Sodium (Dilantin) 200 mg HS PO 06/15/20 22:00 06/22/20 20:03 Non-Formulary Medication (Quetiapine Fumarate (Seroquel Xr)) 600 mg QHS PO 06/16/20 21:00 06/16/20 17:14 DC Non-Formulary Medication (Tiagabine Hcl (Gabitril)) 4 mg TID PO 06/16/20 09:00 06/16/20 11:26 DC Olanzapine (ZyPREXA ZYDIS) 5 mg PRN Q2HR PRN PO PSYCHOSIS 06/16/20 11:30 06/18/20 14:47 Tiagabine HCl (Gabitril) 4 mg TID PO 06/16/20 14:00 06/22/20 20:05 Quetiapine Fumarate (SEROquel) 600 mg QHS PO 06/16/20 21:00 06/22/20 20:12 Divalproex Sodium (Depakote Er) 500 mg HS PO 06/16/20 21:00 06/17/20 02:14 DC 06/16/20 20:44 Divalproex Sodium (Depakote Sprinkles) 500 mg QHS PO 06/17/20 21:00 06/19/20 17:09 DC 06/18/20 19:40 Divalproex Sodium (Depakote Sprinkles) 500 mg BID PO 06/19/20 21:00 06/22/20 20:07 Ondansetron HCl (Zofran Odt) 4 mg PRN Q4HRS PRN PO NAUSEA/VOMITING 06/20/20 21:45 06/21/20 16:26 I have reviewed the current psychotropics carefully including drug interactions. Risk benefit ratio favors no change other than as noted in my dictated progress note. Diagnosis: Problems: (1) Anxiety disorder, unspecified (2) Intellectual disability (3) Bipolar disorder, curr episode mixed, severe, with psychotic features (4) Dementia in Alzheimer's disease with delusions (5) Impulse control disorder (6) Schizoaffective disorder, chronic condition with acute exacerbation STEVEN AYALA MD Jun 22, 2020 21:05
--- NOTE | 2020-06-22 23:04 | NUR ---
Patient is located in his room on assumption of care, awake in bed. Compliant with assessments and medications crushed in applesauce. No agitation. Patient denies any hallucinations or delusions so far this shift. Denies any pain or discomfort. He is less oppositional than previous evening, he did not attempt to bargain with staff to comply with meds or cares. He was cooperative with showering. He appears to be sleeping comfortably at present time. Will continue to monitor.
[2020-06-23] MEDS: LEVOTHYROXINE 125 MCG TABLET PO SCH (05:31)
[2020-06-23 06:39] VITALS: BP 106/69
[2020-06-23] MEDS: MULTIVITAMIN with MINERAL TABLET. PO SCH (07:53)
[2020-06-23] MEDS: PANTOPRAZOLE 40 MG TABLET. PO SCH (07:54)
[2020-06-23] MEDS: clonazePAM 0.5 MG TABLET PO SCH ×2 (07:54→21:13)
[2020-06-23] MEDS: DIVALPROEX 125 MG CAP.SPRINK PO SCH ×2 (07:54→21:10)
[2020-06-23] MEDS: QUEtiapine 50 MG TABLET. PO SCH ×2 (07:54→15:04)
[2020-06-23] MEDS: TIAGABINE 4 MG PO SCH ×2 (07:54→15:04)
[2020-06-23] MEDS: SERTRALINE 50 MG TABLET. PO SCH (07:54)
[2020-06-23] MEDS: cloZAPine 100 MG TABLET PO SCH ×2 (07:54→21:09)
[2020-06-23] MEDS: levETIRAcetam 500 MG TABLET PO SCH ×2 (07:55→21:08)
[2020-06-23] MEDS: PHENYTOIN SODIUM EXTENDED 100 MG CAPSULE PO SCH ×2 (07:55→21:08)
[2020-06-23] MEDS: LACTULOSE 20 GM/30 ML SOLUTION. PO SCH ×3 (07:55→21:11)
--- NOTE | 2020-06-23 10:42 | NUR ---
Pt woke and was angry at staff regarding the condition of his bed. After approaching the [facility] nurse station to request help with it, another nurse stated that she would be able to after a brief wait. In response pt called the nurse a "fucking bitch." He then slammed the door to his room so hard that the force rattled the doors on the rooms adjacent to his. PRN Ativan 1 mg PO administered d/t aggressive/violent behaviors. During medication administration pt made multiple requests that this nurse "help" him regarding his bed. This nurse reiterated the boundary set the previous day that I cannot engage in activities that frequently cause him to be aggressive. Morning medications were then administered without further delays and absent to bargaining by pt. Pt began to c/o of somatic concerns...more specifically his digestive system and bowel movements. He was unable to specify any dysfunction aside from constipation and is quite fixated on it. He is absent of HI/SI behaviors, did not appear to be pre-occupied by VH/AH at this time. After medication administration and brief assessment pt stated he wanted to try to utilize the bathroom. Will pass on to the next shift.
[2020-06-23] MEDS: LORazepam 1 MG TABLET PO PRN (11:01)
[2020-06-23 11:29] LABS: BASO # 0.1 x10^3/uL (0.0-0.2); BASO % 1 % (0-3); EOS # 0.2 x10^3/uL (0.0-0.7); EOS % 2 % (0-3); HEMATOCRIT 40.4 % (39.0-53.0); HEMOGLOBIN 13.1 g/dL (13.0-17.5); LYMPH # 1.6 x10^3/uL (1.0-4.8); LYMPH % 26 % (24-48); MEAN CORPUSCULAR HEMOGLOBIN 29 pg (25-35); MEAN CORPUSCULAR HGB CONC 33 g/dL (31-37); MEAN CORPUSCULAR VOLUME 90 fL (79-100); MONO # 0.5 x10^3/uL (0.0-1.1); MONO % 8 % (0-9); NEUT # 3.9 x10^3uL (1.8-7.7); NEUT % 62 % (31-73); PLATELET COUNT 266 x10^3/uL (140-400); RED BLOOD COUNT 4.47 x10^6/uL (4.30-5.70); RED CELL DISTRIBUTION WIDTH 14.6 % (11.5-14.5); WHITE BLOOD COUNT 6.2 x10^3/uL (4.0-11.0)
--- NOTE | 2020-06-23 12:03 | NUR ---
Pt continues with c/o constipation and abd pain. Bowel sounds hypoactive, abd soft to palpation. He is unable to specify his last BM. Despite this nurse providing reassurance and telling pt I was going to get him a laxative, pt escalated in his abd fixation and hysteria; pacing the unit looking for me, knocking on random doors, yelling and crying "help me nurse I'm dying." PRN Milk of Magnesia administered mixed in prune juice.
[2020-06-23 13:40] LABS: ALBUMIN 3.2 g/dL (3.4-5.0); ALBUMIN/GLOBULIN RATIO 0.8 (1.0-1.7); BLOOD UREA NITROGEN 10 mg/dL (8-26); BUN/CREATININE RATIO 13 (6-20); CALCIUM 8.8 mg/dL (8.5-10.1); CREATININE 0.8 mg/dL (0.7-1.3); GFR 99.6; GLUCOSE 126 mg/dL (70-99); TOTAL BILIRUBIN 0.3 mg/dL (0.2-1.0); TOTAL PROTEIN 7.1 g/dL (6.4-8.2)
[2020-06-23 13:41] LABS: ALK PHOS 64 U/L (46-116); ALT (SGPT) 19 U/L (16-63); ANION GAP 9 (6-14); AST (SGOT) 23 U/L (15-37); CARBON DIOXIDE 25 mmol/L (21-32); CHLORIDE 108 mmol/L (98-107); POTASSIUM 3.6 mmol/L (3.5-5.1); SODIUM 142 mmol/L (136-145); VAL ACID 20 mcg/mL (50-100)
--- NOTE | 2020-06-23 15:26 | RAD ---
EXAM: Abdomen, single view. HISTORY: Distention. COMPARISON: None. FINDINGS: A frontal view of the abdomen is obtained. There is gas and stool within the colon. There a re nonspecific air-filled loops of small bowel within the abdomen. There is no evidence of bowel obst ruction. There are cholecystectomy clips. IMPRESSION: Nonspecific bowel gas pattern, without evidence of obstruction. Moderate colonic stool. Electronically signed by: Chichi He MD (06/23/2020 2:58 PM) [facility]
--- NOTE | 2020-06-23 15:49 | NUR ---
Paged Dr Case concerning KUB results. Orders given: Colage 100 mg BID and Mirlax 17 G daily for constipation/bowel regulation.
[2020-06-23 16:43] VITALS: BP 130/80
[2020-06-23] MEDS: QUEtiapine 100 MG TABLET. PO SCH (20:49)
[2020-06-23] MEDS: SUCRALFATE 1 GM TABLET. PO SCH (21:08)
--- NOTE | 2020-06-23 21:09 | PDOC ---
Exam Note: Chad Note: This note is a late entry for 06/21/2020 covers elements not covered in my initial note. Subjective: The patient was seen face to face in the evening of 06/21/2020 with Mari MCINTOSH. Discussed with nursing staff, reviewed the chart. The patient slept 6-1/4 hours previous night. He spends much time in bed. Nursing staff do not take him to bed and when he asked for he gets agitated. He had some GI symptoms. Received Zofran with relief. Review of Systems: Positive for tiredness. No CV, , pulmonary, eye, ENT system symptoms on review. Mental Status Exam: The patient is reasonably oriented. Speech is coherent, rapid at times. Abstraction is fair. Computation is impaired. Language function is intact. Attention span is short. Mood and affect remains somewhat withdrawn, anxious, labile at times. No suicidal or homicidal ideation. Laboratory Data: Reviewed. Impression: Schizoaffective disorder, bipolar type mixed with psychotic features. Mild intellectual disability. Anxiety disorder unspecified. Impulse control disorder unspecified. Plan: No change from initial note. Adjust as clinically indicated. Assessment: Vital Signs/I&O: Vital Signs Date Time Temp Pulse Resp B/P (MAP) Pulse Ox O2 Delivery O2 Flow Rate FiO2 06/23/20 16:43 97.7 94 18 130/80 (97) 98 06/23/20 06:39 Room Air I & O 06/22/20 06/22/20 06/23/20 15:00 23:00 07:00 Intake Total 480 ml 360 ml Balance 480 ml 360 ml Labs: Laboratory Tests Test 06/23/20 08:10 White Blood Count 6.2 x10^3/uL (4.0-11.0) Red Blood Count 4.47 x10^6/uL (4.30-5.70) Hemoglobin 13.1 g/dL (13.0-17.5) Hematocrit 40.4 % (39.0-53.0) Mean Corpuscular Volume 90 fL (79-100) Mean Corpuscular Hemoglobin 29 pg (25-35) Mean Corpuscular Hemoglobin Concent 33 g/dL (31-37) Red Cell Distribution Width 14.6 % (11.5-14.5) H Platelet Count 266 x10^3/uL (140-400) Neutrophils (%) (Auto) 62 % (31-73) Lymphocytes (%) (Auto) 26 % (24-48) Monocytes (%) (Auto) 8 % (0-9) Eosinophils (%) (Auto) 2 % (0-3) Basophils (%) (Auto) 1 % (0-3) Neutrophils # (Auto) 3.9 x10^3uL (1.8-7.7) Lymphocytes # (Auto) 1.6 x10^3/uL (1.0-4.8) Monocytes # (Auto) 0.5 x10^3/uL (0.0-1.1) Eosinophils # (Auto) 0.2 x10^3/uL (0.0-0.7) Basophils # (Auto) 0.1 x10^3/uL (0.0-0.2) Sodium Level 142 mmol/L (136-145) Potassium Level 3.6 mmol/L (3.5-5.1) Chloride Level 108 mmol/L (98-107) H Carbon Dioxide Level 25 mmol/L (21-32) Anion Gap 9 (6-14) Blood Urea Nitrogen 10 mg/dL (8-26) Creatinine 0.8 mg/dL (0.7-1.3) Estimated GFR (Cockcroft-Gault) 99.6 BUN/Creatinine Ratio 13 (6-20) Glucose Level 126 mg/dL (70-99) H Calcium Level 8.8 mg/dL (8.5-10.1) Total Bilirubin 0.3 mg/dL (0.2-1.0) Aspartate Amino Transferase (AST) 23 U/L (15-37) Alanine Aminotransferase (ALT) 19 U/L (16-63) Alkaline Phosphatase 64 U/L (46-116) Total Protein 7.1 g/dL (6.4-8.2) Albumin 3.2 g/dL (3.4-5.0) L Albumin/Globulin Ratio 0.8 (1.0-1.7) L Valproic Acid Level 20 mcg/mL (50-100) L Valproic Acid Last Dose Date 06/19/20 Valproic Acid Last Dose Time 2100 Current Medications: Meds: Laboratory Tests Test 06/23/20 08:10 White Blood Count 6.2 x10^3/uL Red Blood Count 4.47 x10^6/uL Hemoglobin 13.1 g/dL Hematocrit 40.4 % Mean Corpuscular Volume 90 fL Mean Corpuscular Hemoglobin 29 pg Mean Corpuscular Hemoglobin Concent 33 g/dL Red Cell Distribution Width 14.6 % Platelet Count 266 x10^3/uL Neutrophils (%) (Auto) 62 % Lymphocytes (%) (Auto) 26 % Monocytes (%) (Auto) 8 % Eosinophils (%) (Auto) 2 % Basophils (%) (Auto) 1 % Neutrophils # (Auto) 3.9 x10^3uL Lymphocytes # (Auto) 1.6 x10^3/uL Monocytes # (Auto) 0.5 x10^3/uL Eosinophils # (Auto) 0.2 x10^3/uL Basophils # (Auto) 0.1 x10^3/uL Sodium Level 142 mmol/L Potassium Level 3.6 mmol/L Chloride Level 108 mmol/L Carbon Dioxide Level 25 mmol/L Anion Gap 9 Blood Urea Nitrogen 10 mg/dL Creatinine 0.8 mg/dL Estimated GFR (Cockcroft-Gault) 99.6 BUN/Creatinine Ratio 13 Glucose Level 126 mg/dL Calcium Level 8.8 mg/dL Total Bilirubin 0.3 mg/dL Aspartate Amino Transf (AST/SGOT) 23 U/L Alanine Aminotransferase (ALT/SGPT) 19 U/L Alkaline Phosphatase 64 U/L Total Protein 7.1 g/dL Albumin 3.2 g/dL Albumin/Globulin Ratio 0.8 Valproic Acid (Depakene) Level 20 mcg/mL Valproic Acid Last Dose Date 06/19/20 Valproic Acid Last Dose Time 2100 Current Medications Medications (Trade) Dose Ordered Sig/Edenilson Route PRN Reason Start Time Stop Time Status Last Admin Dose Admin Acetaminophen (Tylenol) 500 mg PRN Q4HRS PRN PO PAIN 06/15/20 21:15 06/18/20 14:09 Atorvastatin Calcium (Lipitor) 40 mg QHS PO 06/15/20 22:00 06/22/20 20:10 Clonazepam (KlonoPIN) 0.5 mg BID PO 06/15/20 22:00 06/23/20 07:54 Fenofibrate (Tricor) 145 mg QHS PO 06/15/20 22:00 06/22/20 20:08 Levetiracetam (Keppra) 500 mg BID PO 06/15/20 22:00 06/23/20 07:55 Lorazepam (Ativan) 1 mg PRN BID PRN PO ANXIETY / AGITATION 06/15/20 21:15 06/23/20 11:01 Al Hydroxide/Mg Hydroxide (Mylanta Plus Xs) 30 ml PRN AFTMEALHC PRN PO DYSPEPSIA 06/15/20 21:15 06/17/20 18:25 Magnesium Hydroxide (Milk Of Magnesia) 2,400 mg PRN DAILY PRN PO CONSTIPATION 06/15/20 21:15 06/23/20 12:03 Olanzapine (ZyPREXA ZYDIS) 10 mg BID PO 06/15/20 22:00 06/23/20 07:55 Phenytoin Sodium (Dilantin) 100 mg DAILY PO 06/16/20 09:00 06/23/20 07:55 Prazosin HCl (Minipress) 1 mg QHS PO 06/15/20 22:00 06/22/20 20:09 Quetiapine Fumarate (SEROquel) 50 mg BID94 PO 06/16/20 09:00 06/23/20 15:04 Sertraline HCl (Zoloft) 50 mg DAILY PO 06/16/20 09:00 06/23/20 07:54 Sucralfate (Carafate) 1 gm HS PO 06/15/20 22:00 06/22/20 20:10 Clozapine (Clozaril) 200 mg DAILY PO 06/16/20 09:00 06/23/20 07:54 Clozapine (Clozaril) 600 mg QHS PO 06/15/20 22:00 06/22/20 20:11 Hydroxyzine Pamoate (Vistaril) 25 mg BID PO 06/15/20 22:00 06/22/20 17:59 DC 06/22/20 08:05 Lactulose (Lactulose) 20 gm TID PO 06/16/20 09:00 06/23/20 15:04 Levothyroxine Sodium (Synthroid) 125 mcg DAILY06 PO 06/16/20 06:00 06/23/20 05:31 Loperamide HCl (Imodium) 2 mg PRN DAILY PRN PO loose stools 06/15/20 22:00 Multi-Ingredient Ointment (Analgesic [place]) 1 dennis PRN QID PRN TP MUSCLE PAIN 06/15/20 22:15 Mirabegron (Myrbetriq) 50 mg QHS PO 06/15/20 22:00 06/22/20 20:06 Multivitamins/ Calcium (Thera-M Plus) 1 tab DAILY PO 06/16/20 09:00 06/23/20 07:53 Pantoprazole Sodium (Protonix) 40 mg DAILYAC PO 06/16/20 07:30 06/23/20 07:54 Phenytoin Sodium (Dilantin) 200 mg HS PO 06/15/20 22:00 06/22/20 20:03 Non-Formulary Medication (Quetiapine Fumarate (Seroquel Xr)) 600 mg QHS PO 06/16/20 21:00 06/16/20 17:14 DC Non-Formulary Medication (Tiagabine Hcl (Gabitril)) 4 mg TID PO 06/16/20 09:00 06/16/20 11:26 DC Olanzapine (ZyPREXA ZYDIS) 5 mg PRN Q2HR PRN PO PSYCHOSIS 06/16/20 11:30 06/18/20 14:47 Tiagabine HCl (Gabitril) 4 mg TID PO 06/16/20 14:00 06/23/20 16:54 DC 06/23/20 15:04 Quetiapine Fumarate (SEROquel) 600 mg QHS PO 06/16/20 21:00 06/22/20 20:12 Divalproex Sodium (Depakote Er) 500 mg HS PO 06/16/20 21:00 06/17/20 02:14 DC 06/16/20 20:44 Divalproex Sodium (Depakote Sprinkles) 500 mg QHS PO 06/17/20 21:00 06/19/20 17:09 DC 06/18/20 19:40 Divalproex Sodium (Depakote Sprinkles) 500 mg BID PO 06/19/20 21:00 06/23/20 21:00 DC 06/23/20 07:54 Ondansetron HCl (Zofran Odt) 4 mg PRN Q4HRS PRN PO NAUSEA/VOMITING 06/20/20 21:45 06/21/20 16:26 Docusate Sodium (Colace) 100 mg BID PO 06/23/20 21:00 Polyethylene Glycol (miraLAX) 17 gm DAILY PO 06/24/20 09:00 Divalproex Sodium (Depakote Sprinkles) 750 mg BID PO 06/24/20 09:00 I have reviewed the current psychotropics carefully including drug interactions. Risk benefit ratio favors no change other than as noted in my dictated progress note. Diagnosis: Problems: (1) Mild intellectual disability (2) Anxiety disorder, unspecified (3) Bipolar disorder, curr episode mixed, severe, with psychotic features (4) Dementia in Alzheimer's disease with delusions (5) Impulse control disorder (6) Schizoaffective disorder, chronic condition with acute exacerbation STEVEN AYALA MD Jun 23, 2020 21:09
[2020-06-23] MEDS: FENOFIBRATE NANOCRYSTALLIZED 145 MG TABLET PO SCH (21:10)
[2020-06-23] MEDS: PRAZOSIN 1 MG CAPSULE. PO SCH (21:10)
[2020-06-23] MEDS: ATORVASTATIN CALCIUM 10 MG TABLET. PO SCH (21:11)
[2020-06-23] MEDS: DOCUSATE SODIUM 100 MG CAPSULE PO SCH (21:13)
[2020-06-23] MEDS: MIRABEGRON 25 MG TAB.ER.24H PO SCH (21:13)
--- NOTE | 2020-06-23 21:44 | PDOC ---
Exam Note: Chad Note: This note is a late entry for 06/22/2020 covers elements not covered in my initial note. Subjective: The patient was seen face to face in the evening of 06/22/2020 with Bailee MCINTOSH. Discussed with nursing staff, reviewed the chart. The patient slept 3-1/4 hours previous night. He slept till about 11 a.m. compliant with medications. He came out for lunch and then watched the TV serial I love [place]asha with rest of the patients and then wanted to go back to bed, somewhat sedated, tired. He got extremely agitated when nursing staff were not able to respond to him as quickly as he thought they should. He took a table and threw it, banging it and then banging on the nursing windows. He refused medications. Review of Systems: Positive for tiredness. No CV, , pulmonary, eye, ENT system symptoms on review. Mental Status Exam: The patient is oriented to himself and situation. Speech is coherent, rapid and loud at times. Abstraction is fair. Computation is impaired. Language function is intact. Mood and affect remains labile. Laboratory Data: Reviewed. Impression: Schizoaffective disorder, bipolar type mixed with psychotic features. Anxiety disorder unspecified. Impulse control disorder unspecified. Plan: No change from initial note. We will check labs level on valproic acid on 06/23. Adjust to reach therapeutic level. He is somewhat sedated during the day. He is on Vistaril 25 mg b.i.d. and we will stop it because of the sky tion. Continue rest of the psychotropics unchanged. Assessment: Vital Signs/I&O: Vital Signs Date Time Temp Pulse Resp B/P (MAP) Pulse Ox O2 Delivery O2 Flow Rate FiO2 06/23/20 21:10 94 130/80 06/23/20 16:43 97.7 18 98 06/23/20 06:39 Room Air I & O 06/22/20 06/22/20 06/23/20 15:00 23:00 07:00 Intake Total 480 ml 360 ml Balance 480 ml 360 ml Labs: Laboratory Tests Test 06/23/20 08:10 White Blood Count 6.2 x10^3/uL (4.0-11.0) Red Blood Count 4.47 x10^6/uL (4.30-5.70) Hemoglobin 13.1 g/dL (13.0-17.5) Hematocrit 40.4 % (39.0-53.0) Mean Corpuscular Volume 90 fL (79-100) Mean Corpuscular Hemoglobin 29 pg (25-35) Mean Corpuscular Hemoglobin Concent 33 g/dL (31-37) Red Cell Distribution Width 14.6 % (11.5-14.5) H Platelet Count 266 x10^3/uL (140-400) Neutrophils (%) (Auto) 62 % (31-73) Lymphocytes (%) (Auto) 26 % (24-48) Monocytes (%) (Auto) 8 % (0-9) Eosinophils (%) (Auto) 2 % (0-3) Basophils (%) (Auto) 1 % (0-3) Neutrophils # (Auto) 3.9 x10^3uL (1.8-7.7) Lymphocytes # (Auto) 1.6 x10^3/uL (1.0-4.8) Monocytes # (Auto) 0.5 x10^3/uL (0.0-1.1) Eosinophils # (Auto) 0.2 x10^3/uL (0.0-0.7) Basophils # (Auto) 0.1 x10^3/uL (0.0-0.2) Sodium Level 142 mmol/L (136-145) Potassium Level 3.6 mmol/L (3.5-5.1) Chloride Level 108 mmol/L (98-107) H Carbon Dioxide Level 25 mmol/L (21-32) Anion Gap 9 (6-14) Blood Urea Nitrogen 10 mg/dL (8-26) Creatinine 0.8 mg/dL (0.7-1.3) Estimated GFR (Cockcroft-Gault) 99.6 BUN/Creatinine Ratio 13 (6-20) Glucose Level 126 mg/dL (70-99) H Calcium Level 8.8 mg/dL (8.5-10.1) Total Bilirubin 0.3 mg/dL (0.2-1.0) Aspartate Amino Transferase (AST) 23 U/L (15-37) Alanine Aminotransferase (ALT) 19 U/L (16-63) Alkaline Phosphatase 64 U/L (46-116) Total Protein 7.1 g/dL (6.4-8.2) Albumin 3.2 g/dL (3.4-5.0) L Albumin/Globulin Ratio 0.8 (1.0-1.7) L Valproic Acid Level 20 mcg/mL (50-100) L Valproic Acid Last Dose Date 06/19/20 Valproic Acid Last Dose Time 2100 Current Medications: Meds: Laboratory Tests Test 06/23/20 08:10 White Blood Count 6.2 x10^3/uL Red Blood Count 4.47 x10^6/uL Hemoglobin 13.1 g/dL Hematocrit 40.4 % Mean Corpuscular Volume 90 fL Mean Corpuscular Hemoglobin 29 pg Mean Corpuscular Hemoglobin Concent 33 g/dL Red Cell Distribution Width 14.6 % Platelet Count 266 x10^3/uL Neutrophils (%) (Auto) 62 % Lymphocytes (%) (Auto) 26 % Monocytes (%) (Auto) 8 % Eosinophils (%) (Auto) 2 % Basophils (%) (Auto) 1 % Neutrophils # (Auto) 3.9 x10^3uL Lymphocytes # (Auto) 1.6 x10^3/uL Monocytes # (Auto) 0.5 x10^3/uL Eosinophils # (Auto) 0.2 x10^3/uL Basophils # (Auto) 0.1 x10^3/uL Sodium Level 142 mmol/L Potassium Level 3.6 mmol/L Chloride Level 108 mmol/L Carbon Dioxide Level 25 mmol/L Anion Gap 9 Blood Urea Nitrogen 10 mg/dL Creatinine 0.8 mg/dL Estimated GFR (Cockcroft-Gault) 99.6 BUN/Creatinine Ratio 13 Glucose Level 126 mg/dL Calcium Level 8.8 mg/dL Total Bilirubin 0.3 mg/dL Aspartate Amino Transf (AST/SGOT) 23 U/L Alanine Aminotransferase (ALT/SGPT) 19 U/L Alkaline Phosphatase 64 U/L Total Protein 7.1 g/dL Albumin 3.2 g/dL Albumin/Globulin Ratio 0.8 Valproic Acid (Depakene) Level 20 mcg/mL Valproic Acid Last Dose Date 06/19/20 Valproic Acid Last Dose Time 2100 Current Medications Medications (Trade) Dose Ordered Sig/Edenilson Route PRN Reason Start Time Stop Time Status Last Admin Dose Admin Acetaminophen (Tylenol) 500 mg PRN Q4HRS PRN PO PAIN 06/15/20 21:15 06/18/20 14:09 Atorvastatin Calcium (Lipitor) 40 mg QHS PO 06/15/20 22:00 06/23/20 21:11 Clonazepam (KlonoPIN) 0.5 mg BID PO 06/15/20 22:00 06/23/20 21:13 Fenofibrate (Tricor) 145 mg QHS PO 06/15/20 22:00 06/23/20 21:10 Levetiracetam (Keppra) 500 mg BID PO 06/15/20 22:00 06/23/20 21:08 Lorazepam (Ativan) 1 mg PRN BID PRN PO ANXIETY / AGITATION 06/15/20 21:15 06/23/20 11:01 Al Hydroxide/Mg Hydroxide (Mylanta Plus Xs) 30 ml PRN AFTMEALHC PRN PO DYSPEPSIA 06/15/20 21:15 06/17/20 18:25 Magnesium Hydroxide (Milk Of Magnesia) 2,400 mg PRN DAILY PRN PO CONSTIPATION 06/15/20 21:15 06/23/20 12:03 Olanzapine (ZyPREXA ZYDIS) 10 mg BID PO 06/15/20 22:00 06/23/20 21:09 Phenytoin Sodium (Dilantin) 100 mg DAILY PO 06/16/20 09:00 06/23/20 07:55 Prazosin HCl (Minipress) 1 mg QHS PO 06/15/20 22:00 06/23/20 21:10 Quetiapine Fumarate (SEROquel) 50 mg BID94 PO 06/16/20 09:00 06/23/20 15:04 Sertraline HCl (Zoloft) 50 mg DAILY PO 06/16/20 09:00 06/23/20 07:54 Sucralfate (Carafate) 1 gm HS PO 06/15/20 22:00 06/23/20 21:08 Clozapine (Clozaril) 200 mg DAILY PO 06/16/20 09:00 06/23/20 07:54 Clozapine (Clozaril) 600 mg QHS PO 06/15/20 22:00 06/23/20 21:09 Hydroxyzine Pamoate (Vistaril) 25 mg BID PO 06/15/20 22:00 06/22/20 17:59 DC 06/22/20 08:05 Lactulose (Lactulose) 20 gm TID PO 06/16/20 09:00 06/23/20 21:11 Levothyroxine Sodium (Synthroid) 125 mcg DAILY06 PO 06/16/20 06:00 06/23/20 05:31 Loperamide HCl (Imodium) 2 mg PRN DAILY PRN PO loose stools 06/15/20 22:00 Multi-Ingredient Ointment (Analgesic [place]) 1 dennis PRN QID PRN TP MUSCLE PAIN 06/15/20 22:15 Mirabegron (Myrbetriq) 50 mg QHS PO 06/15/20 22:00 06/23/20 21:13 Multivitamins/ Calcium (Thera-M Plus) 1 tab DAILY PO 06/16/20 09:00 06/23/20 07:53 Pantoprazole Sodium (Protonix) 40 mg DAILYAC PO 06/16/20 07:30 06/23/20 07:54 Phenytoin Sodium (Dilantin) 200 mg HS PO 06/15/20 22:00 06/23/20 21:08 Non-Formulary Medication (Quetiapine Fumarate (Seroquel Xr)) 600 mg QHS PO 06/16/20 21:00 06/16/20 17:14 DC Non-Formulary Medication (Tiagabine Hcl (Gabitril)) 4 mg TID PO 06/16/20 09:00 06/16/20 11:26 DC Olanzapine (ZyPREXA ZYDIS) 5 mg PRN Q2HR PRN PO PSYCHOSIS 06/16/20 11:30 06/18/20 14:47 Tiagabine HCl (Gabitril) 4 mg TID PO 06/16/20 14:00 06/23/20 16:54 DC 06/23/20 15:04 Quetiapine Fumarate (SEROquel) 600 mg QHS PO 06/16/20 21:00 06/23/20 20:49 Divalproex Sodium (Depakote Er) 500 mg HS PO 06/16/20 21:00 06/17/20 02:14 DC 06/16/20 20:44 Divalproex Sodium (Depakote Sprinkles) 500 mg QHS PO 06/17/20 21:00 06/19/20 17:09 DC 06/18/20 19:40 Divalproex Sodium (Depakote Sprinkles) 500 mg BID PO 06/19/20 21:00 06/23/20 21:00 DC 06/23/20 21:10 Ondansetron HCl (Zofran Odt) 4 mg PRN Q4HRS PRN PO NAUSEA/VOMITING 06/20/20 21:45 06/21/20 16:26 Docusate Sodium (Colace) 100 mg BID PO 06/23/20 21:00 06/23/20 21:13 Polyethylene Glycol (miraLAX) 17 gm DAILY PO 06/24/20 09:00 Divalproex Sodium (Depakote Sprinkles) 750 mg BID PO 06/24/20 09:00 Current Medications Medications (Trade) Dose Ordered Sig/Edenilson Route PRN Reason Start Time Stop Time Status Last Admin Dose Admin Docusate Sodium (Colace) 100 mg BID PO 06/23/20 21:00 06/23/20 21:13 I have reviewed the current psychotropics carefully including drug interactions. Risk benefit ratio favors no change other than as noted in my dictated progress note. Diagnosis: Problems: (1) Anxiety disorder, unspecified (2) Bipolar disorder, curr episode mixed, severe, with psychotic features (3) Mild intellectual disability (4) Dementia in Alzheimer's disease with delusions (5) Impulse control disorder (6) Schizoaffective disorder, chronic condition with acute exacerbation STEVEN AYALA MD Jun 23, 2020 21:43
--- NOTE | 2020-06-23 21:44 | PDOC ---
Exam Note: Chad Note: Please also refer to the separate dictated note~for this date of service dictated separately.~Patient seen individually. Discussed the patient with Nursing staff reviewed the chart.~Reviewed interim history and current functioning. Reviewed vital signs,~Labs/ Radiology~and current medications noted below. Continue current treatment with the changes noted in the dictated addendum note Assessment: Vital Signs/I&O: Vital Signs Date Time Temp Pulse Resp B/P (MAP) Pulse Ox O2 Delivery O2 Flow Rate FiO2 06/23/20 21:10 94 130/80 06/23/20 16:43 97.7 18 98 06/23/20 06:39 Room Air I & O 06/22/20 06/22/20 06/23/20 15:00 23:00 07:00 Intake Total 480 ml 360 ml Balance 480 ml 360 ml Labs: Laboratory Tests Test 06/23/20 08:10 White Blood Count 6.2 x10^3/uL (4.0-11.0) Red Blood Count 4.47 x10^6/uL (4.30-5.70) Hemoglobin 13.1 g/dL (13.0-17.5) Hematocrit 40.4 % (39.0-53.0) Mean Corpuscular Volume 90 fL (79-100) Mean Corpuscular Hemoglobin 29 pg (25-35) Mean Corpuscular Hemoglobin Concent 33 g/dL (31-37) Red Cell Distribution Width 14.6 % (11.5-14.5) H Platelet Count 266 x10^3/uL (140-400) Neutrophils (%) (Auto) 62 % (31-73) Lymphocytes (%) (Auto) 26 % (24-48) Monocytes (%) (Auto) 8 % (0-9) Eosinophils (%) (Auto) 2 % (0-3) Basophils (%) (Auto) 1 % (0-3) Neutrophils # (Auto) 3.9 x10^3uL (1.8-7.7) Lymphocytes # (Auto) 1.6 x10^3/uL (1.0-4.8) Monocytes # (Auto) 0.5 x10^3/uL (0.0-1.1) Eosinophils # (Auto) 0.2 x10^3/uL (0.0-0.7) Basophils # (Auto) 0.1 x10^3/uL (0.0-0.2) Sodium Level 142 mmol/L (136-145) Potassium Level 3.6 mmol/L (3.5-5.1) Chloride Level 108 mmol/L (98-107) H Carbon Dioxide Level 25 mmol/L (21-32) Anion Gap 9 (6-14) Blood Urea Nitrogen 10 mg/dL (8-26) Creatinine 0.8 mg/dL (0.7-1.3) Estimated GFR (Cockcroft-Gault) 99.6 BUN/Creatinine Ratio 13 (6-20) Glucose Level 126 mg/dL (70-99) H Calcium Level 8.8 mg/dL (8.5-10.1) Total Bilirubin 0.3 mg/dL (0.2-1.0) Aspartate Amino Transferase (AST) 23 U/L (15-37) Alanine Aminotransferase (ALT) 19 U/L (16-63) Alkaline Phosphatase 64 U/L (46-116) Total Protein 7.1 g/dL (6.4-8.2) Albumin 3.2 g/dL (3.4-5.0) L Albumin/Globulin Ratio 0.8 (1.0-1.7) L Valproic Acid Level 20 mcg/mL (50-100) L Valproic Acid Last Dose Date 06/19/20 Valproic Acid Last Dose Time 2100 Current Medications: Meds: Laboratory Tests Test 06/23/20 08:10 White Blood Count 6.2 x10^3/uL Red Blood Count 4.47 x10^6/uL Hemoglobin 13.1 g/dL Hematocrit 40.4 % Mean Corpuscular Volume 90 fL Mean Corpuscular Hemoglobin 29 pg Mean Corpuscular Hemoglobin Concent 33 g/dL Red Cell Distribution Width 14.6 % Platelet Count 266 x10^3/uL Neutrophils (%) (Auto) 62 % Lymphocytes (%) (Auto) 26 % Monocytes (%) (Auto) 8 % Eosinophils (%) (Auto) 2 % Basophils (%) (Auto) 1 % Neutrophils # (Auto) 3.9 x10^3uL Lymphocytes # (Auto) 1.6 x10^3/uL Monocytes # (Auto) 0.5 x10^3/uL Eosinophils # (Auto) 0.2 x10^3/uL Basophils # (Auto) 0.1 x10^3/uL Sodium Level 142 mmol/L Potassium Level 3.6 mmol/L Chloride Level 108 mmol/L Carbon Dioxide Level 25 mmol/L Anion Gap 9 Blood Urea Nitrogen 10 mg/dL Creatinine 0.8 mg/dL Estimated GFR (Cockcroft-Gault) 99.6 BUN/Creatinine Ratio 13 Glucose Level 126 mg/dL Calcium Level 8.8 mg/dL Total Bilirubin 0.3 mg/dL Aspartate Amino Transf (AST/SGOT) 23 U/L Alanine Aminotransferase (ALT/SGPT) 19 U/L Alkaline Phosphatase 64 U/L Total Protein 7.1 g/dL Albumin 3.2 g/dL Albumin/Globulin Ratio 0.8 Valproic Acid (Depakene) Level 20 mcg/mL Valproic Acid Last Dose Date 06/19/20 Valproic Acid Last Dose Time 2100 Current Medications Medications (Trade) Dose Ordered Sig/Edenilson Route PRN Reason Start Time Stop Time Status Last Admin Dose Admin Acetaminophen (Tylenol) 500 mg PRN Q4HRS PRN PO PAIN 06/15/20 21:15 06/18/20 14:09 Atorvastatin Calcium (Lipitor) 40 mg QHS PO 06/15/20 22:00 06/23/20 21:11 Clonazepam (KlonoPIN) 0.5 mg BID PO 06/15/20 22:00 06/23/20 21:13 Fenofibrate (Tricor) 145 mg QHS PO 06/15/20 22:00 06/23/20 21:10 Levetiracetam (Keppra) 500 mg BID PO 06/15/20 22:00 06/23/20 21:08 Lorazepam (Ativan) 1 mg PRN BID PRN PO ANXIETY / AGITATION 06/15/20 21:15 06/23/20 11:01 Al Hydroxide/Mg Hydroxide (Mylanta Plus Xs) 30 ml PRN AFTMEALHC PRN PO DYSPEPSIA 06/15/20 21:15 06/17/20 18:25 Magnesium Hydroxide (Milk Of Magnesia) 2,400 mg PRN DAILY PRN PO CONSTIPATION 06/15/20 21:15 06/23/20 12:03 Olanzapine (ZyPREXA ZYDIS) 10 mg BID PO 06/15/20 22:00 06/23/20 21:09 Phenytoin Sodium (Dilantin) 100 mg DAILY PO 06/16/20 09:00 06/23/20 07:55 Prazosin HCl (Minipress) 1 mg QHS PO 06/15/20 22:00 06/23/20 21:10 Quetiapine Fumarate (SEROquel) 50 mg BID94 PO 06/16/20 09:00 06/23/20 15:04 Sertraline HCl (Zoloft) 50 mg DAILY PO 06/16/20 09:00 06/23/20 07:54 Sucralfate (Carafate) 1 gm HS PO 06/15/20 22:00 06/23/20 21:08 Clozapine (Clozaril) 200 mg DAILY PO 06/16/20 09:00 06/23/20 07:54 Clozapine (Clozaril) 600 mg QHS PO 06/15/20 22:00 06/23/20 21:09 Hydroxyzine Pamoate (Vistaril) 25 mg BID PO 06/15/20 22:00 06/22/20 17:59 DC 06/22/20 08:05 Lactulose (Lactulose) 20 gm TID PO 06/16/20 09:00 06/23/20 21:11 Levothyroxine Sodium (Synthroid) 125 mcg DAILY06 PO 06/16/20 06:00 06/23/20 05:31 Loperamide HCl (Imodium) 2 mg PRN DAILY PRN PO loose stools 06/15/20 22:00 Multi-Ingredient Ointment (Analgesic [place]) 1 dennis PRN QID PRN TP MUSCLE PAIN 06/15/20 22:15 Mirabegron (Myrbetriq) 50 mg QHS PO 06/15/20 22:00 06/23/20 21:13 Multivitamins/ Calcium (Thera-M Plus) 1 tab DAILY PO 06/16/20 09:00 06/23/20 07:53 Pantoprazole Sodium (Protonix) 40 mg DAILYAC PO 06/16/20 07:30 06/23/20 07:54 Phenytoin Sodium (Dilantin) 200 mg HS PO 06/15/20 22:00 06/23/20 21:08 Non-Formulary Medication (Quetiapine Fumarate (Seroquel Xr)) 600 mg QHS PO 06/16/20 21:00 06/16/20 17:14 DC Non-Formulary Medication (Tiagabine Hcl (Gabitril)) 4 mg TID PO 06/16/20 09:00 06/16/20 11:26 DC Olanzapine (ZyPREXA ZYDIS) 5 mg PRN Q2HR PRN PO PSYCHOSIS 06/16/20 11:30 06/18/20 14:47 Tiagabine HCl (Gabitril) 4 mg TID PO 06/16/20 14:00 06/23/20 16:54 DC 06/23/20 15:04 Quetiapine Fumarate (SEROquel) 600 mg QHS PO 06/16/20 21:00 06/23/20 20:49 Divalproex Sodium (Depakote Er) 500 mg HS PO 06/16/20 21:00 06/17/20 02:14 DC 06/16/20 20:44 Divalproex Sodium (Depakote Sprinkles) 500 mg QHS PO 06/17/20 21:00 06/19/20 17:09 DC 06/18/20 19:40 Divalproex Sodium (Depakote Sprinkles) 500 mg BID PO 06/19/20 21:00 06/23/20 21:00 DC 06/23/20 21:10 Ondansetron HCl (Zofran Odt) 4 mg PRN Q4HRS PRN PO NAUSEA/VOMITING 06/20/20 21:45 06/21/20 16:26 Docusate Sodium (Colace) 100 mg BID PO 06/23/20 21:00 06/23/20 21:13 Polyethylene Glycol (miraLAX) 17 gm DAILY PO 06/24/20 09:00 Divalproex Sodium (Depakote Sprinkles) 750 mg BID PO 06/24/20 09:00 Current Medications Medications (Trade) Dose Ordered Sig/Edenilson Route PRN Reason Start Time Stop Time Status Last Admin Dose Admin Docusate Sodium (Colace) 100 mg BID PO 06/23/20 21:00 06/23/20 21:13 I have reviewed the current psychotropics carefully including drug interactions. Risk benefit ratio favors no change other than as noted in my dictated progress note. Diagnosis: Problems: (1) Anxiety disorder, unspecified (2) Bipolar disorder, curr episode mixed, severe, with psychotic features (3) Mild intellectual disability (4) Dementia in Alzheimer's disease with delusions (5) Impulse control disorder (6) Schizoaffective disorder, chronic condition with acute exacerbation STEVEN AYALA MD Jun 23, 2020 21:44
--- NOTE | 2020-06-24 00:25 | NUR ---
Nursing Note The patient was located in his room for his assessment and medication pass. The patient took his medication crushed in apple sauce. The patient was only able to answer name during his assessment. The patient was pleasant during interactions and was cooperative with hs cares.
[2020-06-24] MEDS: LEVOTHYROXINE 125 MCG TABLET PO SCH (05:33)
[2020-06-24 06:25] VITALS: BP 110/57
--- NOTE | 2020-06-24 08:26 | PDOC ---
Exam Note: Chad Note: This note is a late entry for 06/23/2020 covers elements not covered in my initial note. Subjective: The patient was seen face to face in the evening of 06/23/2020 with Bailee MCINTOSH. Discussed with nursing staff, reviewed the chart. The patient slept 7-1/2 hours previous night. Overall he continues to be obsessed about wanting to be in bed. He gets extremely frustrated, angry, and irritable with labile mood if nursing staff is trying to keep him up. He tried to slam her desk of drawers into the nursing station and banged the door of his room so loudly that it could be heard at the other end of the unit. He remains somewhat labile, later took his meds, very obsessive at times. Dr. Case did do an x-ray of the KUB. No obstruction noted. He has been started on Colace 100 mg b.i.d. Review of Systems: Positive for tiredness. No CV, , pulmonary, eye system symptoms on review. Mental Status Exam: The patient is reasonably oriented. Speech is coherent, a little pressured at times. Abstraction is fair. Computation is impaired. Language function is intact. Attention span is short. Mood and affect remains labile. Laboratory Data: Reviewed. Impression: Schizoaffective disorder, bipolar type mixed with psychotic features. Anxiety disorder unspecified. Impulse control disorder unspecified. Mild intellectual disability. Plan: No change from initial note. We will go ahead and stop Gabitril 4 mg t.i.d. as it could be worsening his daytime sedation. Valproic acid level is subtherapeutic at 20. We will increase Depakote Sprinkle from 500 mg b.i.d. to 750 mg b.i.d. Check CBC, CMP, valproic acid level, ammonia level in 3 days. Continue rest of the psychotropics unchanged. Assessment: Vital Signs/I&O: Vital Signs Date Time Temp Pulse Resp B/P (MAP) Pulse Ox O2 Delivery O2 Flow Rate FiO2 06/24/20 06:25 98.2 74 18 110/57 (74) 98 Room Air I & O 06/23/20 06/23/20 06/24/20 14:59 22:59 06:59 Intake Total 240 ml 360 ml Balance 240 ml 360 ml Current Medications: Meds: Current Medications Medications (Trade) Dose Ordered Sig/Edenilson Route PRN Reason Start Time Stop Time Status Last Admin Dose Admin Acetaminophen (Tylenol) 500 mg PRN Q4HRS PRN PO PAIN 06/15/20 21:15 06/18/20 14:09 Atorvastatin Calcium (Lipitor) 40 mg QHS PO 06/15/20 22:00 06/23/20 21:11 Clonazepam (KlonoPIN) 0.5 mg BID PO 06/15/20 22:00 06/23/20 21:13 Fenofibrate (Tricor) 145 mg QHS PO 06/15/20 22:00 06/23/20 21:10 Levetiracetam (Keppra) 500 mg BID PO 06/15/20 22:00 06/23/20 21:08 Lorazepam (Ativan) 1 mg PRN BID PRN PO ANXIETY / AGITATION 06/15/20 21:15 06/23/20 11:01 Al Hydroxide/Mg Hydroxide (Mylanta Plus Xs) 30 ml PRN AFTMEALHC PRN PO DYSPEPSIA 06/15/20 21:15 06/17/20 18:25 Magnesium Hydroxide (Milk Of Magnesia) 2,400 mg PRN DAILY PRN PO CONSTIPATION 06/15/20 21:15 06/23/20 12:03 Olanzapine (ZyPREXA ZYDIS) 10 mg BID PO 06/15/20 22:00 06/23/20 21:09 Phenytoin Sodium (Dilantin) 100 mg DAILY PO 06/16/20 09:00 06/23/20 07:55 Prazosin HCl (Minipress) 1 mg QHS PO 06/15/20 22:00 06/23/20 21:10 Quetiapine Fumarate (SEROquel) 50 mg BID94 PO 06/16/20 09:00 06/23/20 15:04 Sertraline HCl (Zoloft) 50 mg DAILY PO 06/16/20 09:00 06/23/20 07:54 Sucralfate (Carafate) 1 gm HS PO 06/15/20 22:00 06/23/20 21:08 Clozapine (Clozaril) 200 mg DAILY PO 06/16/20 09:00 06/23/20 07:54 Clozapine (Clozaril) 600 mg QHS PO 06/15/20 22:00 06/23/20 21:09 Hydroxyzine Pamoate (Vistaril) 25 mg BID PO 06/15/20 22:00 06/22/20 17:59 DC 06/22/20 08:05 Lactulose (Lactulose) 20 gm TID PO 06/16/20 09:00 06/23/20 21:11 Levothyroxine Sodium (Synthroid) 125 mcg DAILY06 PO 06/16/20 06:00 06/24/20 05:33 Loperamide HCl (Imodium) 2 mg PRN DAILY PRN PO loose stools 06/15/20 22:00 Multi-Ingredient Ointment (Analgesic [place]) 1 dennis PRN QID PRN TP MUSCLE PAIN 06/15/20 22:15 Mirabegron (Myrbetriq) 50 mg QHS PO 06/15/20 22:00 06/23/20 21:13 Multivitamins/ Calcium (Thera-M Plus) 1 tab DAILY PO 06/16/20 09:00 06/23/20 07:53 Pantoprazole Sodium (Protonix) 40 mg DAILYAC PO 06/16/20 07:30 06/23/20 07:54 Phenytoin Sodium (Dilantin) 200 mg HS PO 06/15/20 22:00 06/23/20 21:08 Non-Formulary Medication (Quetiapine Fumarate (Seroquel Xr)) 600 mg QHS PO 06/16/20 21:00 06/16/20 17:14 DC Non-Formulary Medication (Tiagabine Hcl (Gabitril)) 4 mg TID PO 06/16/20 09:00 06/16/20 11:26 DC Olanzapine (ZyPREXA ZYDIS) 5 mg PRN Q2HR PRN PO PSYCHOSIS 06/16/20 11:30 06/18/20 14:47 Tiagabine HCl (Gabitril) 4 mg TID PO 06/16/20 14:00 06/23/20 16:54 DC 06/23/20 15:04 Quetiapine Fumarate (SEROquel) 600 mg QHS PO 06/16/20 21:00 06/23/20 20:49 Divalproex Sodium (Depakote Er) 500 mg HS PO 06/16/20 21:00 06/17/20 02:14 DC 06/16/20 20:44 Divalproex Sodium (Depakote Sprinkles) 500 mg QHS PO 06/17/20 21:00 06/19/20 17:09 DC 06/18/20 19:40 Divalproex Sodium (Depakote Sprinkles) 500 mg BID PO 06/19/20 21:00 06/23/20 21:00 DC 06/23/20 21:10 Ondansetron HCl (Zofran Odt) 4 mg PRN Q4HRS PRN PO NAUSEA/VOMITING 06/20/20 21:45 06/21/20 16:26 Docusate Sodium (Colace) 100 mg BID PO 06/23/20 21:00 06/23/20 21:13 Polyethylene Glycol (miraLAX) 17 gm DAILY PO 06/24/20 09:00 Divalproex Sodium (Depakote Sprinkles) 750 mg BID PO 06/24/20 09:00 Current Medications Medications (Trade) Dose Ordered Sig/Edenilson Route PRN Reason Start Time Stop Time Status Last Admin Dose Admin Docusate Sodium (Colace) 100 mg BID PO 06/23/20 21:00 06/23/20 21:13 I have reviewed the current psychotropics carefully including drug interactions. Risk benefit ratio favors no change other than as noted in my dictated progress note. Diagnosis: Problems: (1) Anxiety disorder, unspecified (2) Bipolar disorder, curr episode mixed, severe, with psychotic features (3) Dementia in Alzheimer's disease with delusions (4) Impulse control disorder (5) Schizoaffective disorder, chronic condition with acute exacerbation (6) Mild intellectual disability STEVEN AYALA MD Jun 24, 2020 08:26
[2020-06-24] MEDS: PANTOPRAZOLE 40 MG TABLET. PO SCH (08:50)
[2020-06-24] MEDS: DOCUSATE SODIUM 100 MG CAPSULE PO SCH ×2 (08:51→19:59)
[2020-06-24] MEDS: cloZAPine 100 MG TABLET PO SCH ×2 (08:51→19:57)
[2020-06-24] MEDS: LACTULOSE 20 GM/30 ML SOLUTION. PO SCH ×2 (08:53→13:25)
[2020-06-24] MEDS: MULTIVITAMIN with MINERAL TABLET. PO SCH (08:53)
[2020-06-24] MEDS: QUEtiapine 50 MG TABLET. PO SCH ×3 (08:53→16:50)
[2020-06-24] MEDS: DIVALPROEX 125 MG CAP.SPRINK PO SCH ×2 (08:53→19:56)
[2020-06-24] MEDS: levETIRAcetam 500 MG TABLET PO SCH ×2 (08:53→19:59)
[2020-06-24] MEDS: PHENYTOIN SODIUM EXTENDED 100 MG CAPSULE PO SCH ×2 (08:53→19:57)
[2020-06-24] MEDS: SERTRALINE 50 MG TABLET. PO SCH (08:53)
[2020-06-24] MEDS: clonazePAM 0.5 MG TABLET PO SCH ×2 (08:56→20:07)
[2020-06-24] MEDS: POLYETHYLENE GLYCOL 3350 17 GM PACKET. PO SCH (09:00)
--- NOTE | 2020-06-24 11:23 | NUR ---
Pt is calm, cooperative, complaint. No agitation, no aggression, no hallucinations, no delusions. He is compliant with his medication and assessment.
--- NOTE | 2020-06-24 12:13 | NUR ---
WEEKLY ACTIVITY THERAPY NOTE Date of Admission: 06/15/20 Date of AT Assessment: 06/18/20 Precipitating behaviors that initiated intake and admission: labile mood, crying, throwing things, yelling, agitated Goal aimed:to increase stimulation and socialization Initial Goal: Pt. will participate in at least five individual or Activity Therapy group sessions before discharge. Weekly progress towards goal: 05/28 (06/21-[place] bday cake) Group participation level: 1 min Weekly highlights: accepted cake in room for [place] bday on Wednesday Behaviors observed: withdrawn to room, no interest in groups at this time, yells out at times, calm when greeted by staff Plan: no change to goal Beneficial adaptations:
--- NOTE | 2020-06-24 14:40 | NUR ---
SUMANTH received a call from ARNALDO Up @ [facility], who wanted an update on pt. SUMANTH informed them about treatment team and how pt continues to be demanding about the positioning of his bed. Pt is on Depakote Sprinkles and his VPA is low; therefore, pt will have his Depakote increased with labs and levels due in 3 days. SUMANTH will continue to keep [facility] updated on pt care; discharge at this time if for the middle of next week.
[2020-06-24 16:28] VITALS: BP 99/66
--- NOTE | 2020-06-24 16:32 | TX PLAN ---
Interdisciplinary Tx Plan Admission Information Jun 15, 2020 at 15:45 Legal Status (on Admission): Voluntary DPOA/Guardian Name: Carlos Groves Contact Other Contact Name: [facility] Other Contact Verified Code Status: Full Code Allergies: Coded Allergies: haloperidol (Verified Allergy, Intermediate, 07/31/17) ketchup (Verified Allergy, Intermediate, 07/31/17) Diagnoses Primary Diagnosis: Schizoaffective D/O, Bipolar type with psychotic features Reasons for Admission: Agitated, Angry, Combative, Suspicious/paranoid, Poor impulse control Problem in Patient's Words: He has had a lot of changes and Covid messed up his routine. Additional Admission Comments: According to the intake, pt has labile mood, crying, threw cleanser, cleanser at staff, verbal and physical outbursts, demanding staff, reports his "vagina hurts", throwing belongings, yelling, agitated, his "bad" friends don't leave him alone. Problems Active Problems: labile mood demanding with staff bargaining behaviors Inactive Problems: medication compliant Pt Strengths/Limitations Ability for [place]: Poor Cognitive Functioning/Ability: Poor Communication Skills/Ability: Fair Financial Resources: Fair Insight/Judgement: Poor Intellectual Ability: Poor Physical Health: Fair Social Skills: Poor Stability in Family: Excellent Stability in School/Work: Poor Verbal Skills: Fair Discharge Criteria Discharge Criteria: Adequate arrangements @DC, Improved behavior, Improved mood/thought Preliminary Discharge Plan Preliminary DC Plan: Current Living Arrange. Special Precautions Fall Risk: Low Initial D/C Plan Pt to return to [facility] once stable Identified Discharge Needs: N/A Currently Utilized Resources Currently Utilized Resources/P: Primary Care Physician Psychiatrist Apartment House Manager at facility Identified Problems/Hx/Goals Objectives/Short-Term Goals Short Term Goals: Dec. Aggression, Dec. Outbursts, Medication Stabilization, Promote Coping Skill Short Term Goals in Patient's: N/A Interventions/Frequency Staff Interventions/Frequency&: Psychiatrist to assess pt at least 3x per week for medication management. Social Work to assess pt at least 2x per week to address barriers to care and discharge planning. Nursing to assess behaviors, medication effects and complete 15 minute checks. Encourage group participation in activites (if applicable) or 1:1 engagement based off Activity Dept goals. History Vocational History: Pt was not able to work. Education: Pt graduated high school in 1981 (12th grade). Pt has always attended Special Education classes and was bullied all throughout high school. 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 Pt is mostly calm and cooperative. Pt is medication compliant but appears helpless most time. Pt is withdrawn to his room and gets fixated on having his bed adjusted multiple times throughout the day. Pt received an increase in Depakote to 750mg BID with labs and levels due on 06/27. Pt will plan to return to [facility] once stable. RADHA middle of next week. SW to continue to work with pt brother and the facility on make a smooth transition for discharge. PARISH ARMSTRONG Jun 24, 2020 16:32
--- NOTE | 2020-06-24 17:44 | NUR ---
Pt had emesis X 1 today after lunch. He states he does not feel good or like himself. VSS 125/77, 86, 98.5 100% on RA. Dr. Case aware. No new orders at this time. Pt also politely declined his lactulose today stating "I am done with it, I don't like the way it tastes."
[2020-06-24] MEDS: QUEtiapine 100 MG TABLET. PO SCH (19:58)
[2020-06-24] MEDS: ATORVASTATIN CALCIUM 10 MG TABLET. PO SCH (19:58)
[2020-06-24] MEDS: SUCRALFATE 1 GM TABLET. PO SCH (19:59)
[2020-06-24] MEDS: FENOFIBRATE NANOCRYSTALLIZED 145 MG TABLET PO SCH (20:00)
[2020-06-24] MEDS: PRAZOSIN 1 MG CAPSULE. PO SCH (20:05)
[2020-06-24] MEDS: MIRABEGRON 25 MG TAB.ER.24H PO SCH (20:07)
--- NOTE | 2020-06-24 21:08 | PDOC ---
Exam Note: Chad Note: Please also refer to the separate dictated note~for this date of service dictated separately.~Patient seen individually. Discussed the patient with Nursing staff reviewed the chart.~Reviewed interim history and current functioning. Reviewed vital signs,~Labs/ Radiology~and current medications noted below. Continue current treatment with the changes noted in the dictated addendum note Assessment: Vital Signs/I&O: Vital Signs Date Time Temp Pulse Resp B/P (MAP) Pulse Ox O2 Delivery O2 Flow Rate FiO2 06/24/20 20:05 98 109/66 06/24/20 16:28 98.0 16 100 06/24/20 06:25 Room Air I & O 06/23/20 06/23/20 06/24/20 15:00 23:00 07:00 Intake Total 240 ml 360 ml Balance 240 ml 360 ml Current Medications: Meds: Current Medications Medications (Trade) Dose Ordered Sig/Edenilson Route PRN Reason Start Time Stop Time Status Last Admin Dose Admin Acetaminophen (Tylenol) 500 mg PRN Q4HRS PRN PO PAIN 06/15/20 21:15 06/18/20 14:09 Atorvastatin Calcium (Lipitor) 40 mg QHS PO 06/15/20 22:00 06/24/20 19:58 Clonazepam (KlonoPIN) 0.5 mg BID PO 06/15/20 22:00 06/24/20 20:07 Fenofibrate (Tricor) 145 mg QHS PO 06/15/20 22:00 06/24/20 20:00 Levetiracetam (Keppra) 500 mg BID PO 06/15/20 22:00 06/24/20 19:59 Lorazepam (Ativan) 1 mg PRN BID PRN PO ANXIETY / AGITATION 06/15/20 21:15 06/23/20 11:01 Al Hydroxide/Mg Hydroxide (Mylanta Plus Xs) 30 ml PRN AFTMEALHC PRN PO DYSPEPSIA 06/15/20 21:15 06/17/20 18:25 Magnesium Hydroxide (Milk Of Magnesia) 2,400 mg PRN DAILY PRN PO CONSTIPATION 06/15/20 21:15 06/23/20 12:03 Olanzapine (ZyPREXA ZYDIS) 10 mg BID PO 06/15/20 22:00 06/24/20 19:59 Phenytoin Sodium (Dilantin) 100 mg DAILY PO 06/16/20 09:00 06/24/20 08:53 Prazosin HCl (Minipress) 1 mg QHS PO 06/15/20 22:00 06/24/20 20:05 Quetiapine Fumarate (SEROquel) 50 mg BID94 PO 06/16/20 09:00 06/24/20 08:53 Sertraline HCl (Zoloft) 50 mg DAILY PO 06/16/20 09:00 06/24/20 08:53 Sucralfate (Carafate) 1 gm HS PO 06/15/20 22:00 06/24/20 19:59 Clozapine (Clozaril) 200 mg DAILY PO 06/16/20 09:00 06/24/20 08:51 Clozapine (Clozaril) 600 mg QHS PO 06/15/20 22:00 06/24/20 19:57 Hydroxyzine Pamoate (Vistaril) 25 mg BID PO 06/15/20 22:00 06/22/20 17:59 DC 06/22/20 08:05 Lactulose (Lactulose) 20 gm TID PO 06/16/20 09:00 06/24/20 16:20 DC 06/24/20 08:53 Levothyroxine Sodium (Synthroid) 125 mcg DAILY06 PO 06/16/20 06:00 06/24/20 05:33 Loperamide HCl (Imodium) 2 mg PRN DAILY PRN PO loose stools 06/15/20 22:00 Multi-Ingredient Ointment (Analgesic [place]ington) 1 dennis PRN QID PRN TP MUSCLE PAIN 06/15/20 22:15 Mirabegron (Myrbetriq) 50 mg QHS PO 06/15/20 22:00 06/24/20 20:07 Multivitamins/ Calcium (Thera-M Plus) 1 tab DAILY PO 06/16/20 09:00 06/24/20 08:53 Pantoprazole Sodium (Protonix) 40 mg DAILYAC PO 06/16/20 07:30 06/24/20 08:50 Phenytoin Sodium (Dilantin) 200 mg HS PO 06/15/20 22:00 06/24/20 19:57 Non-Formulary Medication (Quetiapine Fumarate (Seroquel Xr)) 600 mg QHS PO 06/16/20 21:00 06/16/20 17:14 DC Non-Formulary Medication (Tiagabine Hcl (Gabitril)) 4 mg TID PO 06/16/20 09:00 06/16/20 11:26 DC Olanzapine (ZyPREXA ZYDIS) 5 mg PRN Q2HR PRN PO PSYCHOSIS 06/16/20 11:30 06/18/20 14:47 Tiagabine HCl (Gabitril) 4 mg TID PO 06/16/20 14:00 06/23/20 16:54 DC 06/23/20 15:04 Quetiapine Fumarate (SEROquel) 600 mg QHS PO 06/16/20 21:00 06/24/20 19:58 Divalproex Sodium (Depakote Er) 500 mg HS PO 06/16/20 21:00 06/17/20 02:14 DC 06/16/20 20:44 Divalproex Sodium (Depakote Sprinkles) 500 mg QHS PO 06/17/20 21:00 06/19/20 17:09 DC 06/18/20 19:40 Divalproex Sodium (Depakote Sprinkles) 500 mg BID PO 06/19/20 21:00 06/23/20 21:00 DC 06/23/20 21:10 Ondansetron HCl (Zofran Odt) 4 mg PRN Q4HRS PRN PO NAUSEA/VOMITING 06/20/20 21:45 06/21/20 16:26 Docusate Sodium (Colace) 100 mg BID PO 06/23/20 21:00 06/24/20 19:59 Polyethylene Glycol (miraLAX) 17 gm DAILY PO 06/24/20 09:00 Divalproex Sodium (Depakote Sprinkles) 750 mg BID PO 06/24/20 09:00 06/24/20 19:56 Current Medications Medications (Trade) Dose Ordered Sig/Edenilson Route PRN Reason Start Time Stop Time Status Last Admin Dose Admin Divalproex Sodium (Depakote Sprinkles) 750 mg BID PO 06/24/20 09:00 06/24/20 19:56 I have reviewed the current psychotropics carefully including drug interactions. Risk benefit ratio favors no change other than as noted in my dictated progress note. 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
--- NOTE | 2020-06-25 03:33 | NUR ---
Nursing Note The patient was located in his room laying in bed for his assessment and medication pass. The patient took his medication crushed in apple sauce. The patient was able to answer name and that he was in the hospital. The patient was pleasant and appropriate during interactions with this nurse.
[2020-06-25] MEDS: LEVOTHYROXINE 125 MCG TABLET PO SCH (05:44)
[2020-06-25 06:48] VITALS: BP 105/68
[2020-06-25] MEDS: PANTOPRAZOLE 40 MG TABLET. PO SCH (08:05)
[2020-06-25] MEDS: clonazePAM 0.5 MG TABLET PO SCH ×3 (08:05→21:25)
[2020-06-25] MEDS: POLYETHYLENE GLYCOL 3350 17 GM PACKET. PO SCH (08:05)
[2020-06-25] MEDS: DIVALPROEX 125 MG CAP.SPRINK PO SCH ×3 (08:05→21:22)
[2020-06-25] MEDS: QUEtiapine 50 MG TABLET. PO SCH ×2 (08:06→16:53)
[2020-06-25] MEDS: DOCUSATE SODIUM 100 MG CAPSULE PO SCH ×3 (08:06→21:21)
[2020-06-25] MEDS: levETIRAcetam 500 MG TABLET PO SCH ×3 (08:06→21:21)
[2020-06-25] MEDS: SERTRALINE 50 MG TABLET. PO SCH (08:06)
[2020-06-25] MEDS: cloZAPine 100 MG TABLET PO SCH ×3 (08:06→21:23)
[2020-06-25] MEDS: MULTIVITAMIN with MINERAL TABLET. PO SCH (08:06)
[2020-06-25] MEDS: PHENYTOIN SODIUM EXTENDED 100 MG CAPSULE PO SCH ×2 (08:06→21:23)
--- NOTE | 2020-06-25 11:15 | NUR ---
SUMANTH received a call from pt trustee, Torito Madison, who wanted an update on pt and how he is doing. SUMANTH informed Torito that pt is doing okay. He continues to be withdrawn to his room with no interest in groups or pt interaction. His greatest hang up is the positioning of his bed. He has decreased in aggression but does at time get verbally aggressive when redirected about no moving his bed. At times, pt will ask multiple times a day. Torito reports that is mostly pt looking for attention and not much logic to why his bed needs to be moved more then looking for staff to pay him attention. SW went over the medications and reports that if things go well, he can look at discharge towards the middle of next week. Torito asked that SW let pt know that he checked in on him and he is open to talking to pt on the phone if he wishes to do so.
[2020-06-25] MEDS: ONDANSETRON ODT 4 MG TAB.RAPDIS PO PRN ×2 (12:20→21:44)
[2020-06-25 15:25] VITALS: BP 123/75
--- NOTE | 2020-06-25 18:30 | NUR ---
Patient has been restless, helpless at times, compliant with medications, and withdrawn to his room throughout this shift. He had complaints of nausea with emesis about noon; prn medication provided per eMAR. No further complaints this shift. Will continue to monitor and report to oncoming shift.
[2020-06-25] MEDS: MIRABEGRON 25 MG TAB.ER.24H PO SCH ×2 (21:00→21:25)
[2020-06-25] MEDS: SUCRALFATE 1 GM TABLET. PO SCH ×2 (21:00→21:22)
[2020-06-25] MEDS: PRAZOSIN 1 MG CAPSULE. PO SCH ×2 (21:00→21:23)
[2020-06-25] MEDS: QUEtiapine 100 MG TABLET. PO SCH ×2 (21:00→21:23)
[2020-06-25] MEDS: FENOFIBRATE NANOCRYSTALLIZED 145 MG TABLET PO SCH ×2 (21:00→21:22)
[2020-06-25] MEDS: ATORVASTATIN CALCIUM 10 MG TABLET. PO SCH ×2 (21:00→21:22)
--- NOTE | 2020-06-25 21:05 | PDOC ---
Exam Note: Chad Note: Please also refer to the separate dictated note~for this date of service dictated separately.~Patient seen individually. Discussed the patient with Nursing staff reviewed the chart.~Reviewed interim history and current functioning. Reviewed vital signs,~Labs/ Radiology~and current medications noted below. Continue current treatment with the changes noted in the dictated addendum note Assessment: Vital Signs/I&O: Vital Signs Date Time Temp Pulse Resp B/P (MAP) Pulse Ox O2 Delivery O2 Flow Rate FiO2 06/25/20 15:25 96.5 113 16 123/75 (91) 95 06/25/20 06:48 Room Air I & O 06/24/20 06/24/20 06/25/20 15:00 23:00 07:00 Intake Total 180 ml 440 ml Balance 180 ml 440 ml Current Medications: Meds: Current Medications Medications (Trade) Dose Ordered Sig/Edenilson Route PRN Reason Start Time Stop Time Status Last Admin Dose Admin Acetaminophen (Tylenol) 500 mg PRN Q4HRS PRN PO PAIN 06/15/20 21:15 06/18/20 14:09 Atorvastatin Calcium (Lipitor) 40 mg QHS PO 06/15/20 22:00 06/24/20 19:58 Clonazepam (KlonoPIN) 0.5 mg BID PO 06/15/20 22:00 06/25/20 08:05 Fenofibrate (Tricor) 145 mg QHS PO 06/15/20 22:00 06/24/20 20:00 Levetiracetam (Keppra) 500 mg BID PO 06/15/20 22:00 06/25/20 08:06 Lorazepam (Ativan) 1 mg PRN BID PRN PO ANXIETY / AGITATION 06/15/20 21:15 06/23/20 11:01 Al Hydroxide/Mg Hydroxide (Mylanta Plus Xs) 30 ml PRN AFTMEALHC PRN PO DYSPEPSIA 06/15/20 21:15 06/17/20 18:25 Magnesium Hydroxide (Milk Of Magnesia) 2,400 mg PRN DAILY PRN PO CONSTIPATION 06/15/20 21:15 06/23/20 12:03 Olanzapine (ZyPREXA ZYDIS) 10 mg BID PO 06/15/20 22:00 06/25/20 08:06 Phenytoin Sodium (Dilantin) 100 mg DAILY PO 06/16/20 09:00 06/25/20 08:06 Prazosin HCl (Minipress) 1 mg QHS PO 06/15/20 22:00 06/24/20 20:05 Quetiapine Fumarate (SEROquel) 50 mg BID94 PO 06/16/20 09:00 06/25/20 16:53 Sertraline HCl (Zoloft) 50 mg DAILY PO 06/16/20 09:00 06/25/20 08:06 Sucralfate (Carafate) 1 gm HS PO 06/15/20 22:00 06/24/20 19:59 Clozapine (Clozaril) 200 mg DAILY PO 06/16/20 09:00 06/25/20 08:06 Clozapine (Clozaril) 600 mg QHS PO 06/15/20 22:00 06/24/20 19:57 Hydroxyzine Pamoate (Vistaril) 25 mg BID PO 06/15/20 22:00 06/22/20 17:59 DC 06/22/20 08:05 Lactulose (Lactulose) 20 gm TID PO 06/16/20 09:00 06/24/20 16:20 DC 06/24/20 08:53 Levothyroxine Sodium (Synthroid) 125 mcg DAILY06 PO 06/16/20 06:00 06/25/20 05:44 Loperamide HCl (Imodium) 2 mg PRN DAILY PRN PO loose stools 06/15/20 22:00 Multi-Ingredient Ointment (Analgesic [place]) 1 ednnis PRN QID PRN TP MUSCLE PAIN 06/15/20 22:15 Mirabegron (Myrbetriq) 50 mg QHS PO 06/15/20 22:00 06/24/20 20:07 Multivitamins/ Calcium (Thera-M Plus) 1 tab DAILY PO 06/16/20 09:00 06/25/20 08:06 Pantoprazole Sodium (Protonix) 40 mg DAILYAC PO 06/16/20 07:30 06/25/20 08:05 Phenytoin Sodium (Dilantin) 200 mg HS PO 06/15/20 22:00 06/24/20 19:57 Non-Formulary Medication (Quetiapine Fumarate (Seroquel Xr)) 600 mg QHS PO 06/16/20 21:00 06/16/20 17:14 DC Non-Formulary Medication (Tiagabine Hcl (Gabitril)) 4 mg TID PO 06/16/20 09:00 06/16/20 11:26 DC Olanzapine (ZyPREXA ZYDIS) 5 mg PRN Q2HR PRN PO PSYCHOSIS 06/16/20 11:30 06/18/20 14:47 Tiagabine HCl (Gabitril) 4 mg TID PO 06/16/20 14:00 06/23/20 16:54 DC 06/23/20 15:04 Quetiapine Fumarate (SEROquel) 600 mg QHS PO 06/16/20 21:00 06/24/20 19:58 Divalproex Sodium (Depakote Er) 500 mg HS PO 06/16/20 21:00 06/17/20 02:14 DC 06/16/20 20:44 Divalproex Sodium (Depakote Sprinkles) 500 mg QHS PO 06/17/20 21:00 06/19/20 17:09 DC 06/18/20 19:40 Divalproex Sodium (Depakote Sprinkles) 500 mg BID PO 06/19/20 21:00 06/23/20 21:00 DC 06/23/20 21:10 Ondansetron HCl (Zofran Odt) 4 mg PRN Q4HRS PRN PO NAUSEA/VOMITING 06/20/20 21:45 06/25/20 12:20 Docusate Sodium (Colace) 100 mg BID PO 06/23/20 21:00 06/25/20 08:06 Polyethylene Glycol (miraLAX) 17 gm DAILY PO 06/24/20 09:00 06/25/20 08:05 Divalproex Sodium (Depakote Sprinkles) 750 mg BID PO 06/24/20 09:00 06/25/20 08:05 I have reviewed the current psychotropics carefully including drug interactions. Risk benefit ratio favors no change other than as noted in my dictated progress note. Diagnosis: Problems: (1) Anxiety disorder, unspecified (2) Bipolar disorder, curr episode mixed, severe, with psychotic features (3) Mild intellectual disability (4) Impulse control disorder (5) Schizoaffective disorder, chronic condition with acute exacerbation STEVEN AYALA MD Jun 25, 2020 21:05
[2020-06-25 22:18] VITALS: BP 121/74
[2020-06-25 22:46] LABS: BASO # 0.1 x10^3/uL (0.0-0.2); BASO % 1 % (0-3); EOS # 0.1 x10^3/uL (0.0-0.7); EOS % 1 % (0-3); HEMOGLOBIN 13.6 g/dL (13.0-17.5); LYMPH # 1.1 x10^3/uL (1.0-4.8); LYMPH % 12 % (24-48); MEAN CORPUSCULAR HEMOGLOBIN 29 pg (25-35); MEAN CORPUSCULAR HGB CONC 32 g/dL (31-37); MEAN CORPUSCULAR VOLUME 90 fL (79-100); MONO # 0.7 x10^3/uL (0.0-1.1); MONO % 7 % (0-9); NEUT # 7.8 x10^3uL (1.8-7.7); NEUT % 80 % (31-73); PLATELET COUNT 277 x10^3/uL (140-400); RED BLOOD COUNT 4.68 x10^6/uL (4.30-5.70); RED CELL DISTRIBUTION WIDTH 14.6 % (11.5-14.5); WHITE BLOOD COUNT 9.8 x10^3/uL (4.0-11.0)
[2020-06-25 22:49] LABS: CALCIUM 8.3 mg/dL (8.5-10.1); CREATININE 0.9 mg/dL (0.7-1.3); POTASSIUM 3.4 mmol/L (3.5-5.1)
[2020-06-25 22:55] LABS: ALBUMIN 3.2 g/dL (3.4-5.0); ALBUMIN/GLOBULIN RATIO 0.8 (1.0-1.7); TOTAL BILIRUBIN 0.2 mg/dL (0.2-1.0); TOTAL PROTEIN 7.4 g/dL (6.4-8.2)
--- NOTE | 2020-06-25 23:00 | RAD ---
INDICATION: Reason: probable aspiration of emisis, vomiting, short of air, cough / Spl. Instructions: / History: COMPARISON: July 2017 FINDINGS: Single view of chest obtained. Hypoexpanded examination of the lungs. There is some mild interstitial prominence. Cardiac silhouette is similar to prior. Degenerative changes of the spine. Hypertrophic changes right distal clavicle. IMPRESSION: * No definite focal airspace consolidation. * Hypoexpanded exam with mild interstitial prominence. Could be from vascular crowding from hypoexpa nsion but mild pulmonary vascular congestion could have this appearance. Electronically signed by: Brandyn Cabezas MD (06/25/2020 10:58 PM) [id number]
[2020-06-26] MEDS: LEVOTHYROXINE 125 MCG TABLET PO SCH (05:12)
[2020-06-26] MEDS: ONDANSETRON ODT 4 MG TAB.RAPDIS PO PRN ×2 (05:12→08:05)
--- NOTE | 2020-06-26 05:35 | NUR ---
Nursing Note The patient had one episode of emesis this shift. While checking on the patient during the night this nurse discovered the patient was aspirating on his emesis. After sitting the patient up the patient was able to clear some of the emesis/saliva. The patient was very sedated and was unable to answer assessment questions.The patients medications were held except for a Zofran PRN and Dilantin. Dr. Case was called and orders were given for stat CBP CMP and chest X-RAY. The patient is currently awake in bed and received his Synthroid whole in apple sauce in addition to another Zofran R/T Nausea. The patient appears to be having difficulty swallowing honey thick liquids at this time.
[2020-06-26 06:28] VITALS: BP 132/80
[2020-06-26] MEDS: PANTOPRAZOLE 40 MG TABLET. PO SCH (08:45)
[2020-06-26] MEDS: POLYETHYLENE GLYCOL 3350 17 GM PACKET. PO SCH (08:45)
[2020-06-26] MEDS: clonazePAM 0.5 MG TABLET PO SCH ×2 (08:46→20:12)
[2020-06-26] MEDS: DIVALPROEX 125 MG CAP.SPRINK PO SCH ×2 (08:46→20:12)
[2020-06-26] MEDS: MULTIVITAMIN with MINERAL TABLET. PO SCH (08:47)
[2020-06-26] MEDS: QUEtiapine 50 MG TABLET. PO SCH ×3 (08:47→16:54)
[2020-06-26] MEDS: DOCUSATE SODIUM 100 MG CAPSULE PO SCH ×2 (08:47→20:12)
[2020-06-26] MEDS: PHENYTOIN SODIUM EXTENDED 100 MG CAPSULE PO SCH ×2 (08:47→20:12)
[2020-06-26] MEDS: levETIRAcetam 500 MG TABLET PO SCH ×2 (08:47→20:12)
[2020-06-26] MEDS: SERTRALINE 50 MG TABLET. PO SCH (08:47)
[2020-06-26] MEDS: cloZAPine 100 MG TABLET PO SCH ×2 (08:47→20:12)
--- NOTE | 2020-06-26 08:53 | PDOC ---
Exam Note: Chad Note: This note is a late entry for 06/24/2020 covers elements not covered in my initial note. Subjective: The patient was seen face to face in the morning of 06/24/2020 for a treatment team meeting with Joslyn Brady, Kristine Conrad and Roselyn (social group worker), Syeda Monsivais, activity therapy and Griselda MCINTOSH. Discussed with nursing staff, reviewed the chart. The patient slept 6 hours previous night. Average 5 hours sleep. Appetite is 60%. Over the weekend the patient is somewhat aggressive, agitated but since then he has been calmer. He gets quite obsessive at times. Also met the patient in the evening with Zack MCINTOSH and he has been doing better. He has had some GI symptoms at night. He was in bed which is where I met with him in his room. Review of Systems: No CV, , pulmonary, eye system symptoms on review. Mental Status Exam: The patient is reasonably oriented. Speech is coherent. Often response is monosyllabic. Abstraction is fair. Computation is impaired. Language function is intact. Attention span is short. Mood and affect somewhat withdrawn but he was verbal, interactive with me. Laboratory Data: Reviewed. Impression: Schizoaffective disorder, bipolar type mixed with psychotic features. Anxiety disorder unspecified. Impulse control disorder unspecified. Mild intellectual disability. Plan: No change from initial note. Continue psychotropics from initial note. We are adjusting the Depakote to reach therapeutic level. Dilantin is therapeutic. Maintain Keppra for seizures, Klonopin, Seroquel, Zoloft, Clozaril. WBC and absolute neutrophil count is unremarkable for the Clozaril. Assessment: Vital Signs/I&O: Vital Signs Date Time Temp Pulse Resp B/P (MAP) Pulse Ox O2 Delivery O2 Flow Rate FiO2 06/26/20 06:28 98.2 102 20 132/80 (97) 95 Room Air I & O 06/25/20 06/25/20 06/26/20 15:00 23:00 07:00 Intake Total 200 ml 200 ml 120 ml Balance 200 ml 200 ml 120 ml Labs: Laboratory Tests Test 06/25/20 22:29 White Blood Count 9.8 x10^3/uL (4.0-11.0) Red Blood Count 4.68 x10^6/uL (4.30-5.70) Hemoglobin 13.6 g/dL (13.0-17.5) Hematocrit 42.0 % (39.0-53.0) Mean Corpuscular Volume 90 fL (79-100) Mean Corpuscular Hemoglobin 29 pg (25-35) Mean Corpuscular Hemoglobin Concent 32 g/dL (31-37) Red Cell Distribution Width 14.6 % (11.5-14.5) H Platelet Count 277 x10^3/uL (140-400) Neutrophils (%) (Auto) 80 % (31-73) H Lymphocytes (%) (Auto) 12 % (24-48) L Monocytes (%) (Auto) 7 % (0-9) Eosinophils (%) (Auto) 1 % (0-3) Basophils (%) (Auto) 1 % (0-3) Neutrophils # (Auto) 7.8 x10^3uL (1.8-7.7) H Lymphocytes # (Auto) 1.1 x10^3/uL (1.0-4.8) Monocytes # (Auto) 0.7 x10^3/uL (0.0-1.1) Eosinophils # (Auto) 0.1 x10^3/uL (0.0-0.7) Basophils # (Auto) 0.1 x10^3/uL (0.0-0.2) Sodium Level 141 mmol/L (136-145) Potassium Level 3.4 mmol/L (3.5-5.1) L Chloride Level 106 mmol/L (98-107) Carbon Dioxide Level 24 mmol/L (21-32) Anion Gap 11 (6-14) Blood Urea Nitrogen 10 mg/dL (8-26) Creatinine 0.9 mg/dL (0.7-1.3) Estimated GFR (Cockcroft-Gault) 87.0 BUN/Creatinine Ratio 11 (6-20) Glucose Level 164 mg/dL (70-99) H Calcium Level 8.3 mg/dL (8.5-10.1) L Total Bilirubin 0.2 mg/dL (0.2-1.0) Aspartate Amino Transferase (AST) 17 U/L (15-37) Alanine Aminotransferase (ALT) 18 U/L (16-63) Alkaline Phosphatase 71 U/L (46-116) Total Protein 7.4 g/dL (6.4-8.2) Albumin 3.2 g/dL (3.4-5.0) L Albumin/Globulin Ratio 0.8 (1.0-1.7) L Lipase 98 U/L (73-393) Current Medications: Meds: Laboratory Tests Test 06/25/20 22:29 White Blood Count 9.8 x10^3/uL Red Blood Count 4.68 x10^6/uL Hemoglobin 13.6 g/dL Hematocrit 42.0 % Mean Corpuscular Volume 90 fL Mean Corpuscular Hemoglobin 29 pg Mean Corpuscular Hemoglobin Concent 32 g/dL Red Cell Distribution Width 14.6 % Platelet Count 277 x10^3/uL Neutrophils (%) (Auto) 80 % Lymphocytes (%) (Auto) 12 % Monocytes (%) (Auto) 7 % Eosinophils (%) (Auto) 1 % Basophils (%) (Auto) 1 % Neutrophils # (Auto) 7.8 x10^3uL Lymphocytes # (Auto) 1.1 x10^3/uL Monocytes # (Auto) 0.7 x10^3/uL Eosinophils # (Auto) 0.1 x10^3/uL Basophils # (Auto) 0.1 x10^3/uL Sodium Level 141 mmol/L Potassium Level 3.4 mmol/L Chloride Level 106 mmol/L Carbon Dioxide Level 24 mmol/L Anion Gap 11 Blood Urea Nitrogen 10 mg/dL Creatinine 0.9 mg/dL Estimated GFR (Cockcroft-Gault) 87.0 BUN/Creatinine Ratio 11 Glucose Level 164 mg/dL Calcium Level 8.3 mg/dL Total Bilirubin 0.2 mg/dL Aspartate Amino Transf (AST/SGOT) 17 U/L Alanine Aminotransferase (ALT/SGPT) 18 U/L Alkaline Phosphatase 71 U/L Total Protein 7.4 g/dL Albumin 3.2 g/dL Albumin/Globulin Ratio 0.8 Lipase 98 U/L Current Medications Medications (Trade) Dose Ordered Sig/Edenilson Route PRN Reason Start Time Stop Time Status Last Admin Dose Admin Acetaminophen (Tylenol) 500 mg PRN Q4HRS PRN PO PAIN 06/15/20 21:15 06/18/20 14:09 Atorvastatin Calcium (Lipitor) 40 mg QHS PO 06/15/20 22:00 06/24/20 19:58 Clonazepam (KlonoPIN) 0.5 mg BID PO 06/15/20 22:00 06/26/20 08:46 Fenofibrate (Tricor) 145 mg QHS PO 06/15/20 22:00 06/24/20 20:00 Levetiracetam (Keppra) 500 mg BID PO 06/15/20 22:00 06/26/20 08:47 Lorazepam (Ativan) 1 mg PRN BID PRN PO ANXIETY / AGITATION 06/15/20 21:15 06/23/20 11:01 Al Hydroxide/Mg Hydroxide (Mylanta Plus Xs) 30 ml PRN AFTMEALHC PRN PO DYSPEPSIA 06/15/20 21:15 06/17/20 18:25 Magnesium Hydroxide (Milk Of Magnesia) 2,400 mg PRN DAILY PRN PO CONSTIPATION 06/15/20 21:15 06/23/20 12:03 Olanzapine (ZyPREXA ZYDIS) 10 mg BID PO 06/15/20 22:00 06/26/20 08:46 Phenytoin Sodium (Dilantin) 100 mg DAILY PO 06/16/20 09:00 06/26/20 08:47 Prazosin HCl (Minipress) 1 mg QHS PO 06/15/20 22:00 06/24/20 20:05 Quetiapine Fumarate (SEROquel) 50 mg BID94 PO 06/16/20 09:00 06/26/20 08:47 Sertraline HCl (Zoloft) 50 mg DAILY PO 06/16/20 09:00 06/26/20 08:47 Sucralfate (Carafate) 1 gm HS PO 06/15/20 22:00 06/24/20 19:59 Clozapine (Clozaril) 200 mg DAILY PO 06/16/20 09:00 06/26/20 08:47 Clozapine (Clozaril) 600 mg QHS PO 06/15/20 22:00 06/24/20 19:57 Hydroxyzine Pamoate (Vistaril) 25 mg BID PO 06/15/20 22:00 06/22/20 17:59 DC 06/22/20 08:05 Lactulose (Lactulose) 20 gm TID PO 06/16/20 09:00 06/24/20 16:20 DC 06/24/20 08:53 Levothyroxine Sodium (Synthroid) 125 mcg DAILY06 PO 06/16/20 06:00 06/26/20 05:12 Loperamide HCl (Imodium) 2 mg PRN DAILY PRN PO loose stools 06/15/20 22:00 Multi-Ingredient Ointment (Analgesic [place]) 1 dennis PRN QID PRN TP MUSCLE PAIN 06/15/20 22:15 Mirabegron (Myrbetriq) 50 mg QHS PO 06/15/20 22:00 06/24/20 20:07 Multivitamins/ Calcium (Thera-M Plus) 1 tab DAILY PO 06/16/20 09:00 06/26/20 08:47 Pantoprazole Sodium (Protonix) 40 mg DAILYAC PO 06/16/20 07:30 06/26/20 08:45 Phenytoin Sodium (Dilantin) 200 mg HS PO 06/15/20 22:00 06/25/20 21:23 Non-Formulary Medication (Quetiapine Fumarate (Seroquel Xr)) 600 mg QHS PO 06/16/20 21:00 06/16/20 17:14 DC Non-Formulary Medication (Tiagabine Hcl (Gabitril)) 4 mg TID PO 06/16/20 09:00 06/16/20 11:26 DC Olanzapine (ZyPREXA ZYDIS) 5 mg PRN Q2HR PRN PO PSYCHOSIS 06/16/20 11:30 06/18/20 14:47 Tiagabine HCl (Gabitril) 4 mg TID PO 06/16/20 14:00 06/23/20 16:54 DC 06/23/20 15:04 Quetiapine Fumarate (SEROquel) 600 mg QHS PO 06/16/20 21:00 06/24/20 19:58 Divalproex Sodium (Depakote Er) 500 mg HS PO 06/16/20 21:00 06/17/20 02:14 DC 06/16/20 20:44 Divalproex Sodium (Depakote Sprinkles) 500 mg QHS PO 06/17/20 21:00 06/19/20 17:09 DC 06/18/20 19:40 Divalproex Sodium (Depakote Sprinkles) 500 mg BID PO 06/19/20 21:00 06/23/20 21:00 DC 06/23/20 21:10 Ondansetron HCl (Zofran Odt) 4 mg PRN Q4HRS PRN PO NAUSEA/VOMITING 06/20/20 21:45 06/26/20 08:05 Docusate Sodium (Colace) 100 mg BID PO 06/23/20 21:00 06/26/20 08:47 Polyethylene Glycol (miraLAX) 17 gm DAILY PO 06/24/20 09:00 06/26/20 08:45 Divalproex Sodium (Depakote Sprinkles) 750 mg BID PO 06/24/20 09:00 06/26/20 08:46 I have reviewed the current psychotropics carefully including drug interactions. Risk benefit ratio favors no change other than as noted in my dictated progress note. Diagnosis: Problems: (1) Anxiety disorder, unspecified (2) Bipolar disorder, curr episode mixed, severe, with psychotic features (3) Mild intellectual disability (4) Dementia in Alzheimer's disease with delusions (5) Impulse control disorder (6) Schizoaffective disorder, chronic condition with acute exacerbation STEVEN AYALA MD Jun 26, 2020 08:53
--- NOTE | 2020-06-26 09:22 | PDOC ---
Exam Note: Chad Note: This note is a late entry for 06/25/2020 covers elements not covered in my initial note. Subjective: The patient was seen face to face in the evening of 06/25/2020 with Fred MCINTOSH. Discussed with nursing staff, reviewed the chart. The patient slept 8-1/2 hours previous night. Overall the patient remains withdrawn, spends much time in his room, which is where I met with him. He had emesis at 11.45 a.m. We will defer to Dr. Case. His absolute neutrophil count is unremarkable. We will repeat valproic acid level on the 06/27. Review of Systems: No CV, , pulmonary, eye system symptoms on review. Mental Status Exam: The patient is oriented to himself and situation. Speech little slurred at times, but typical for him. Abstraction is fair. Computation is impaired. Language function is intact. Attention span is short. Mood and affect somewhat withdrawn. Laboratory Data: Reviewed. Impression: Schizoaffective disorder, bipolar type mixed with psychotic features. Anxiety disorder unspecified. Impulse control disorder unspecified. Mild intellectual disability. Plan: No change from initial note. Assessment: Vital Signs/I&O: Vital Signs Date Time Temp Pulse Resp B/P (MAP) Pulse Ox O2 Delivery O2 Flow Rate FiO2 06/26/20 06:28 98.2 102 20 132/80 (97) 95 Room Air I & O 06/25/20 06/25/20 06/26/20 15:00 23:00 07:00 Intake Total 200 ml 200 ml 120 ml Balance 200 ml 200 ml 120 ml Labs: Laboratory Tests Test 06/25/20 22:29 White Blood Count 9.8 x10^3/uL (4.0-11.0) Red Blood Count 4.68 x10^6/uL (4.30-5.70) Hemoglobin 13.6 g/dL (13.0-17.5) Hematocrit 42.0 % (39.0-53.0) Mean Corpuscular Volume 90 fL (79-100) Mean Corpuscular Hemoglobin 29 pg (25-35) Mean Corpuscular Hemoglobin Concent 32 g/dL (31-37) Red Cell Distribution Width 14.6 % (11.5-14.5) H Platelet Count 277 x10^3/uL (140-400) Neutrophils (%) (Auto) 80 % (31-73) H Lymphocytes (%) (Auto) 12 % (24-48) L Monocytes (%) (Auto) 7 % (0-9) Eosinophils (%) (Auto) 1 % (0-3) Basophils (%) (Auto) 1 % (0-3) Neutrophils # (Auto) 7.8 x10^3uL (1.8-7.7) H Lymphocytes # (Auto) 1.1 x10^3/uL (1.0-4.8) Monocytes # (Auto) 0.7 x10^3/uL (0.0-1.1) Eosinophils # (Auto) 0.1 x10^3/uL (0.0-0.7) Basophils # (Auto) 0.1 x10^3/uL (0.0-0.2) Sodium Level 141 mmol/L (136-145) Potassium Level 3.4 mmol/L (3.5-5.1) L Chloride Level 106 mmol/L (98-107) Carbon Dioxide Level 24 mmol/L (21-32) Anion Gap 11 (6-14) Blood Urea Nitrogen 10 mg/dL (8-26) Creatinine 0.9 mg/dL (0.7-1.3) Estimated GFR (Cockcroft-Gault) 87.0 BUN/Creatinine Ratio 11 (6-20) Glucose Level 164 mg/dL (70-99) H Calcium Level 8.3 mg/dL (8.5-10.1) L Total Bilirubin 0.2 mg/dL (0.2-1.0) Aspartate Amino Transferase (AST) 17 U/L (15-37) Alanine Aminotransferase (ALT) 18 U/L (16-63) Alkaline Phosphatase 71 U/L (46-116) Total Protein 7.4 g/dL (6.4-8.2) Albumin 3.2 g/dL (3.4-5.0) L Albumin/Globulin Ratio 0.8 (1.0-1.7) L Lipase 98 U/L (73-393) Current Medications: Meds: Laboratory Tests Test 06/25/20 22:29 White Blood Count 9.8 x10^3/uL Red Blood Count 4.68 x10^6/uL Hemoglobin 13.6 g/dL Hematocrit 42.0 % Mean Corpuscular Volume 90 fL Mean Corpuscular Hemoglobin 29 pg Mean Corpuscular Hemoglobin Concent 32 g/dL Red Cell Distribution Width 14.6 % Platelet Count 277 x10^3/uL Neutrophils (%) (Auto) 80 % Lymphocytes (%) (Auto) 12 % Monocytes (%) (Auto) 7 % Eosinophils (%) (Auto) 1 % Basophils (%) (Auto) 1 % Neutrophils # (Auto) 7.8 x10^3uL Lymphocytes # (Auto) 1.1 x10^3/uL Monocytes # (Auto) 0.7 x10^3/uL Eosinophils # (Auto) 0.1 x10^3/uL Basophils # (Auto) 0.1 x10^3/uL Sodium Level 141 mmol/L Potassium Level 3.4 mmol/L Chloride Level 106 mmol/L Carbon Dioxide Level 24 mmol/L Anion Gap 11 Blood Urea Nitrogen 10 mg/dL Creatinine 0.9 mg/dL Estimated GFR (Cockcroft-Gault) 87.0 BUN/Creatinine Ratio 11 Glucose Level 164 mg/dL Calcium Level 8.3 mg/dL Total Bilirubin 0.2 mg/dL Aspartate Amino Transf (AST/SGOT) 17 U/L Alanine Aminotransferase (ALT/SGPT) 18 U/L Alkaline Phosphatase 71 U/L Total Protein 7.4 g/dL Albumin 3.2 g/dL Albumin/Globulin Ratio 0.8 Lipase 98 U/L Current Medications Medications (Trade) Dose Ordered Sig/Edenilson Route PRN Reason Start Time Stop Time Status Last Admin Dose Admin Acetaminophen (Tylenol) 500 mg PRN Q4HRS PRN PO PAIN 06/15/20 21:15 06/18/20 14:09 Atorvastatin Calcium (Lipitor) 40 mg QHS PO 06/15/20 22:00 06/24/20 19:58 Clonazepam (KlonoPIN) 0.5 mg BID PO 06/15/20 22:00 06/26/20 08:46 Fenofibrate (Tricor) 145 mg QHS PO 06/15/20 22:00 06/24/20 20:00 Levetiracetam (Keppra) 500 mg BID PO 06/15/20 22:00 06/26/20 08:47 Lorazepam (Ativan) 1 mg PRN BID PRN PO ANXIETY / AGITATION 06/15/20 21:15 06/23/20 11:01 Al Hydroxide/Mg Hydroxide (Mylanta Plus Xs) 30 ml PRN AFTMEALHC PRN PO DYSPEPSIA 06/15/20 21:15 06/17/20 18:25 Magnesium Hydroxide (Milk Of Magnesia) 2,400 mg PRN DAILY PRN PO CONSTIPATION 06/15/20 21:15 06/23/20 12:03 Olanzapine (ZyPREXA ZYDIS) 10 mg BID PO 06/15/20 22:00 06/26/20 08:46 Phenytoin Sodium (Dilantin) 100 mg DAILY PO 06/16/20 09:00 06/26/20 08:47 Prazosin HCl (Minipress) 1 mg QHS PO 06/15/20 22:00 06/24/20 20:05 Quetiapine Fumarate (SEROquel) 50 mg BID94 PO 06/16/20 09:00 06/26/20 08:47 Sertraline HCl (Zoloft) 50 mg DAILY PO 06/16/20 09:00 06/26/20 08:47 Sucralfate (Carafate) 1 gm HS PO 06/15/20 22:00 06/24/20 19:59 Clozapine (Clozaril) 200 mg DAILY PO 06/16/20 09:00 06/26/20 08:47 Clozapine (Clozaril) 600 mg QHS PO 06/15/20 22:00 06/24/20 19:57 Hydroxyzine Pamoate (Vistaril) 25 mg BID PO 06/15/20 22:00 06/22/20 17:59 DC 06/22/20 08:05 Lactulose (Lactulose) 20 gm TID PO 06/16/20 09:00 06/24/20 16:20 DC 06/24/20 08:53 Levothyroxine Sodium (Synthroid) 125 mcg DAILY06 PO 06/16/20 06:00 06/26/20 05:12 Loperamide HCl (Imodium) 2 mg PRN DAILY PRN PO loose stools 06/15/20 22:00 Multi-Ingredient Ointment (Analgesic [place]) 1 dennis PRN QID PRN TP MUSCLE PAIN 06/15/20 22:15 Mirabegron (Myrbetriq) 50 mg QHS PO 06/15/20 22:00 06/24/20 20:07 Multivitamins/ Calcium (Thera-M Plus) 1 tab DAILY PO 06/16/20 09:00 06/26/20 08:47 Pantoprazole Sodium (Protonix) 40 mg DAILYAC PO 06/16/20 07:30 06/26/20 08:45 Phenytoin Sodium (Dilantin) 200 mg HS PO 06/15/20 22:00 06/25/20 21:23 Non-Formulary Medication (Quetiapine Fumarate (Seroquel Xr)) 600 mg QHS PO 06/16/20 21:00 06/16/20 17:14 DC Non-Formulary Medication (Tiagabine Hcl (Gabitril)) 4 mg TID PO 06/16/20 09:00 06/16/20 11:26 DC Olanzapine (ZyPREXA ZYDIS) 5 mg PRN Q2HR PRN PO PSYCHOSIS 06/16/20 11:30 06/18/20 14:47 Tiagabine HCl (Gabitril) 4 mg TID PO 06/16/20 14:00 06/23/20 16:54 DC 06/23/20 15:04 Quetiapine Fumarate (SEROquel) 600 mg QHS PO 06/16/20 21:00 06/24/20 19:58 Divalproex Sodium (Depakote Er) 500 mg HS PO 06/16/20 21:00 06/17/20 02:14 DC 06/16/20 20:44 Divalproex Sodium (Depakote Sprinkles) 500 mg QHS PO 06/17/20 21:00 06/19/20 17:09 DC 06/18/20 19:40 Divalproex Sodium (Depakote Sprinkles) 500 mg BID PO 06/19/20 21:00 06/23/20 21:00 DC 06/23/20 21:10 Ondansetron HCl (Zofran Odt) 4 mg PRN Q4HRS PRN PO NAUSEA/VOMITING 06/20/20 21:45 06/26/20 08:05 Docusate Sodium (Colace) 100 mg BID PO 06/23/20 21:00 06/26/20 08:47 Polyethylene Glycol (miraLAX) 17 gm DAILY PO 06/24/20 09:00 06/26/20 08:45 Divalproex Sodium (Depakote Sprinkles) 750 mg BID PO 06/24/20 09:00 06/26/20 08:46 I have reviewed the current psychotropics carefully including drug interactions. Risk benefit ratio favors no change other than as noted in my dictated progress note. Diagnosis: Problems: (1) Anxiety disorder, unspecified (2) Bipolar disorder, curr episode mixed, severe, with psychotic features (3) Mild intellectual disability (4) Dementia in Alzheimer's disease with delusions (5) Impulse control disorder (6) Schizoaffective disorder, chronic condition with acute exacerbation STEVEN AYALA MD Jun 26, 2020 09:22
--- NOTE | 2020-06-26 13:54 | NUR ---
Pt has c/o of nausea this morning but no episodes of emesis. PRN Zofran was administered to ensure he was able to keep down food and morning medications. He has been complaint with medications and assessment, absent of verbal or physical aggression thus far during shift. He did have a brief period of briskly walking around the unit in a state of anxiety and yelling out his frustrations. He was able to be successfully redirected. He denies SI/HI, absent of distraction d/t VH/AH. Will pass on to the next shift
[2020-06-26 16:19] VITALS: BP 117/73
[2020-06-26 16:36] VITALS: BP 118/60
--- NOTE | 2020-06-26 17:15 | NUR ---
Patient looks sickly, is diaphoretic, and complains of not feeling well. VS-manual PV=985/60, apical Kgjjt=863, Respirations=18, Oral temp=99.1F. MD notified during rounds, new orders received. Will report to MD and continue to monitor.
--- NOTE | 2020-06-26 17:25 | NUR ---
1600 Seroquel held d/t pt lethargy and fever of 99.[address] Rios notified
[2020-06-26 18:08] LABS: BASO # 0.1 x10^3/uL (0.0-0.2); BASO % 1 % (0-3); EOS # 0.2 x10^3/uL (0.0-0.7); EOS % 2 % (0-3); HEMATOCRIT 43.3 % (39.0-53.0); HEMOGLOBIN 13.9 g/dL (13.0-17.5); LYMPH # 2.1 x10^3/uL (1.0-4.8); LYMPH % 16 % (24-48); MEAN CORPUSCULAR HEMOGLOBIN 29 pg (25-35); MEAN CORPUSCULAR HGB CONC 32 g/dL (31-37); MEAN CORPUSCULAR VOLUME 91 fL (79-100); MONO # 0.9 x10^3/uL (0.0-1.1); MONO % 7 % (0-9); NEUT # 10.2 x10^3uL (1.8-7.7); NEUT % 75 % (31-73); PLATELET COUNT 256 x10^3/uL (140-400); RED BLOOD COUNT 4.77 x10^6/uL (4.30-5.70); RED CELL DISTRIBUTION WIDTH 15.2 % (11.5-14.5); WHITE BLOOD COUNT 13.5 x10^3/uL (4.0-11.0)
[2020-06-26 18:29] LABS: CALCIUM 8.3 mg/dL (8.5-10.1); CREATININE 0.9 mg/dL (0.7-1.3); POTASSIUM 3.4 mmol/L (3.5-5.1)
[2020-06-26 18:36] LABS: ALBUMIN 3.3 g/dL (3.4-5.0); ALBUMIN/GLOBULIN RATIO 0.9 (1.0-1.7); TOTAL BILIRUBIN 0.2 mg/dL (0.2-1.0); TOTAL PROTEIN 7.1 g/dL (6.4-8.2)
[2020-06-26] MEDS: levoFLOXacin 500 MG TABLET PO SCH (20:11)
[2020-06-26] MEDS: SUCRALFATE 1 GM TABLET. PO SCH (20:12)
[2020-06-26] MEDS: ATORVASTATIN CALCIUM 10 MG TABLET. PO SCH (20:12)
[2020-06-26] MEDS: PRAZOSIN 1 MG CAPSULE. PO SCH (20:13)
[2020-06-26] MEDS: FENOFIBRATE NANOCRYSTALLIZED 145 MG TABLET PO SCH (20:13)
[2020-06-26] MEDS: MIRABEGRON 25 MG TAB.ER.24H PO SCH (20:13)
--- NOTE | 2020-06-26 21:04 | PDOC ---
Exam Note: Chad Note: Please also refer to the separate dictated note~for this date of service dictated separately.~Patient seen individually. Discussed the patient with Nursing staff reviewed the chart.~Reviewed interim history and current functioning. Reviewed vital signs,~Labs/ Radiology~and current medications noted below. Continue current treatment with the changes noted in the dictated addendum note Assessment: Vital Signs/I&O: Vital Signs Date Time Temp Pulse Resp B/P (MAP) Pulse Ox O2 Delivery O2 Flow Rate FiO2 06/26/20 20:13 106 118/60 06/26/20 16:36 99.1 Room Air 06/26/20 16:19 16 93 I & O 06/25/20 06/25/20 06/26/20 15:00 23:00 07:00 Intake Total 200 ml 200 ml 120 ml Balance 200 ml 200 ml 120 ml Labs: Laboratory Tests Test 06/25/20 22:29 06/26/20 17:52 White Blood Count 9.8 x10^3/uL (4.0-11.0) 13.5 x10^3/uL (4.0-11.0) H Red Blood Count 4.68 x10^6/uL (4.30-5.70) 4.77 x10^6/uL (4.30-5.70) Hemoglobin 13.6 g/dL (13.0-17.5) 13.9 g/dL (13.0-17.5) Hematocrit 42.0 % (39.0-53.0) 43.3 % (39.0-53.0) Mean Corpuscular Volume 90 fL (79-100) 91 fL (79-100) Mean Corpuscular Hemoglobin 29 pg (25-35) 29 pg (25-35) Mean Corpuscular Hemoglobin Concent 32 g/dL (31-37) 32 g/dL (31-37) Red Cell Distribution Width 14.6 % (11.5-14.5) H 15.2 % (11.5-14.5) H Platelet Count 277 x10^3/uL (140-400) 256 x10^3/uL (140-400) Neutrophils (%) (Auto) 80 % (31-73) H 75 % (31-73) H Lymphocytes (%) (Auto) 12 % (24-48) L 16 % (24-48) L Monocytes (%) (Auto) 7 % (0-9) 7 % (0-9) Eosinophils (%) (Auto) 1 % (0-3) 2 % (0-3) Basophils (%) (Auto) 1 % (0-3) 1 % (0-3) Neutrophils # (Auto) 7.8 x10^3uL (1.8-7.7) H 10.2 x10^3uL (1.8-7.7) H Lymphocytes # (Auto) 1.1 x10^3/uL (1.0-4.8) 2.1 x10^3/uL (1.0-4.8) Monocytes # (Auto) 0.7 x10^3/uL (0.0-1.1) 0.9 x10^3/uL (0.0-1.1) Eosinophils # (Auto) 0.1 x10^3/uL (0.0-0.7) 0.2 x10^3/uL (0.0-0.7) Basophils # (Auto) 0.1 x10^3/uL (0.0-0.2) 0.1 x10^3/uL (0.0-0.2) Sodium Level 141 mmol/L (136-145) 142 mmol/L (136-145) Potassium Level 3.4 mmol/L (3.5-5.1) L 3.4 mmol/L (3.5-5.1) L Chloride Level 106 mmol/L (98-107) 108 mmol/L (98-107) H Carbon Dioxide Level 24 mmol/L (21-32) 23 mmol/L (21-32) Anion Gap 11 (6-14) 11 (6-14) Blood Urea Nitrogen 10 mg/dL (8-26) 13 mg/dL (8-26) Creatinine 0.9 mg/dL (0.7-1.3) 0.9 mg/dL (0.7-1.3) Estimated GFR (Cockcroft-Gault) 87.0 87.0 BUN/Creatinine Ratio 11 (6-20) 14 (6-20) Glucose Level 164 mg/dL (70-99) H 145 mg/dL (70-99) H Calcium Level 8.3 mg/dL (8.5-10.1) L 8.3 mg/dL (8.5-10.1) L Total Bilirubin 0.2 mg/dL (0.2-1.0) 0.2 mg/dL (0.2-1.0) Aspartate Amino Transferase (AST) 17 U/L (15-37) 18 U/L (15-37) Alanine Aminotransferase (ALT) 18 U/L (16-63) 18 U/L (16-63) Alkaline Phosphatase 71 U/L (46-116) 71 U/L (46-116) Total Protein 7.4 g/dL (6.4-8.2) 7.1 g/dL (6.4-8.2) Albumin 3.2 g/dL (3.4-5.0) L 3.3 g/dL (3.4-5.0) L Albumin/Globulin Ratio 0.8 (1.0-1.7) L 0.9 (1.0-1.7) L Lipase 98 U/L (73-393) Lactic Acid Level 0.7 mmol/L (0.4-2.0) Current Medications: Meds: Laboratory Tests Test 06/25/20 22:29 06/26/20 17:52 White Blood Count 9.8 x10^3/uL 13.5 x10^3/uL Red Blood Count 4.68 x10^6/uL 4.77 x10^6/uL Hemoglobin 13.6 g/dL 13.9 g/dL Hematocrit 42.0 % 43.3 % Mean Corpuscular Volume 90 fL 91 fL Mean Corpuscular Hemoglobin 29 pg 29 pg Mean Corpuscular Hemoglobin Concent 32 g/dL 32 g/dL Red Cell Distribution Width 14.6 % 15.2 % Platelet Count 277 x10^3/uL 256 x10^3/uL Neutrophils (%) (Auto) 80 % 75 % Lymphocytes (%) (Auto) 12 % 16 % Monocytes (%) (Auto) 7 % 7 % Eosinophils (%) (Auto) 1 % 2 % Basophils (%) (Auto) 1 % 1 % Neutrophils # (Auto) 7.8 x10^3uL 10.2 x10^3uL Lymphocytes # (Auto) 1.1 x10^3/uL 2.1 x10^3/uL Monocytes # (Auto) 0.7 x10^3/uL 0.9 x10^3/uL Eosinophils # (Auto) 0.1 x10^3/uL 0.2 x10^3/uL Basophils # (Auto) 0.1 x10^3/uL 0.1 x10^3/uL Sodium Level 141 mmol/L 142 mmol/L Potassium Level 3.4 mmol/L 3.4 mmol/L Chloride Level 106 mmol/L 108 mmol/L Carbon Dioxide Level 24 mmol/L 23 mmol/L Anion Gap 11 11 Blood Urea Nitrogen 10 mg/dL 13 mg/dL Creatinine 0.9 mg/dL 0.9 mg/dL Estimated GFR (Cockcroft-Gault) 87.0 87.0 BUN/Creatinine Ratio 11 14 Glucose Level 164 mg/dL 145 mg/dL Calcium Level 8.3 mg/dL 8.3 mg/dL Total Bilirubin 0.2 mg/dL 0.2 mg/dL Aspartate Amino Transf (AST/SGOT) 17 U/L 18 U/L Alanine Aminotransferase (ALT/SGPT) 18 U/L 18 U/L Alkaline Phosphatase 71 U/L 71 U/L Total Protein 7.4 g/dL 7.1 g/dL Albumin 3.2 g/dL 3.3 g/dL Albumin/Globulin Ratio 0.8 0.9 Lipase 98 U/L Lactic Acid Level 0.7 mmol/L Current Medications Medications (Trade) Dose Ordered Sig/Edenilson Route PRN Reason Start Time Stop Time Status Last Admin Dose Admin Acetaminophen (Tylenol) 500 mg PRN Q4HRS PRN PO PAIN 06/15/20 21:15 06/18/20 14:09 Atorvastatin Calcium (Lipitor) 40 mg QHS PO 06/15/20 22:00 06/26/20 20:12 Clonazepam (KlonoPIN) 0.5 mg BID PO 06/15/20 22:00 06/26/20 20:12 Fenofibrate (Tricor) 145 mg QHS PO 06/15/20 22:00 06/26/20 20:13 Levetiracetam (Keppra) 500 mg BID PO 06/15/20 22:00 06/26/20 20:12 Lorazepam (Ativan) 1 mg PRN BID PRN PO ANXIETY / AGITATION 06/15/20 21:15 06/23/20 11:01 Al Hydroxide/Mg Hydroxide (Mylanta Plus Xs) 30 ml PRN AFTMEALHC PRN PO DYSPEPSIA 06/15/20 21:15 06/17/20 18:25 Magnesium Hydroxide (Milk Of Magnesia) 2,400 mg PRN DAILY PRN PO CONSTIPATION 06/15/20 21:15 06/23/20 12:03 Olanzapine (ZyPREXA ZYDIS) 10 mg BID PO 06/15/20 22:00 06/26/20 20:13 Phenytoin Sodium (Dilantin) 100 mg DAILY PO 06/16/20 09:00 06/26/20 08:47 Prazosin HCl (Minipress) 1 mg QHS PO 06/15/20 22:00 06/26/20 20:13 Quetiapine Fumarate (SEROquel) 50 mg BID94 PO 06/16/20 09:00 06/26/20 08:47 Sertraline HCl (Zoloft) 50 mg DAILY PO 06/16/20 09:00 06/26/20 08:47 Sucralfate (Carafate) 1 gm HS PO 06/15/20 22:00 06/26/20 20:12 Clozapine (Clozaril) 200 mg DAILY PO 06/16/20 09:00 06/26/20 08:47 Clozapine (Clozaril) 600 mg QHS PO 06/15/20 22:00 06/26/20 20:12 Hydroxyzine Pamoate (Vistaril) 25 mg BID PO 06/15/20 22:00 06/22/20 17:59 DC 06/22/20 08:05 Lactulose (Lactulose) 20 gm TID PO 06/16/20 09:00 06/24/20 16:20 DC 06/24/20 08:53 Levothyroxine Sodium (Synthroid) 125 mcg DAILY06 PO 06/16/20 06:00 06/26/20 05:12 Loperamide HCl (Imodium) 2 mg PRN DAILY PRN PO loose stools 06/15/20 22:00 Multi-Ingredient Ointment (Analgesic [place]) 1 dennis PRN QID PRN TP MUSCLE PAIN 06/15/20 22:15 Mirabegron (Myrbetriq) 50 mg QHS PO 06/15/20 22:00 06/26/20 20:13 Multivitamins/ Calcium (Thera-M Plus) 1 tab DAILY PO 06/16/20 09:00 06/26/20 08:47 Pantoprazole Sodium (Protonix) 40 mg DAILYAC PO 06/16/20 07:30 06/26/20 08:45 Phenytoin Sodium (Dilantin) 200 mg HS PO 06/15/20 22:00 06/26/20 20:12 Non-Formulary Medication (Quetiapine Fumarate (Seroquel Xr)) 600 mg QHS PO 06/16/20 21:00 06/16/20 17:14 DC Non-Formulary Medication (Tiagabine Hcl (Gabitril)) 4 mg TID PO 06/16/20 09:00 06/16/20 11:26 DC Olanzapine (ZyPREXA ZYDIS) 5 mg PRN Q2HR PRN PO PSYCHOSIS 06/16/20 11:30 06/18/20 14:47 Tiagabine HCl (Gabitril) 4 mg TID PO 06/16/20 14:00 06/23/20 16:54 DC 06/23/20 15:04 Quetiapine Fumarate (SEROquel) 600 mg QHS PO 06/16/20 21:00 06/26/20 17:25 DC 06/24/20 19:58 Divalproex Sodium (Depakote Er) 500 mg HS PO 06/16/20 21:00 06/17/20 02:14 DC 06/16/20 20:44 Divalproex Sodium (Depakote Sprinkles) 500 mg QHS PO 06/17/20 21:00 06/19/20 17:09 DC 06/18/20 19:40 Divalproex Sodium (Depakote Sprinkles) 500 mg BID PO 06/19/20 21:00 06/23/20 21:00 DC 06/23/20 21:10 Ondansetron HCl (Zofran Odt) 4 mg PRN Q4HRS PRN PO NAUSEA/VOMITING 06/20/20 21:45 06/26/20 08:05 Docusate Sodium (Colace) 100 mg BID PO 06/23/20 21:00 06/26/20 20:12 Polyethylene Glycol (miraLAX) 17 gm DAILY PO 06/24/20 09:00 06/26/20 08:45 Divalproex Sodium (Depakote Sprinkles) 750 mg BID PO 06/24/20 09:00 06/26/20 20:12 Levofloxacin (Levaquin) 500 mg DAILY06 PO 06/26/20 19:45 06/26/20 20:11 Current Medications Medications (Trade) Dose Ordered Sig/Edenilson Route PRN Reason Start Time Stop Time Status Last Admin Dose Admin Levofloxacin (Levaquin) 500 mg DAILY06 PO 06/26/20 19:45 06/26/20 20:11 I have reviewed the current psychotropics carefully including drug interactions. Risk benefit ratio favors no change other than as noted in my dictated progress note. Diagnosis: Problems: (1) Anxiety disorder, unspecified (2) Bipolar disorder, curr episode mixed, severe, with psychotic features (3) Mild intellectual disability (4) Dementia in Alzheimer's disease with delusions (5) Impulse control disorder (6) Schizoaffective disorder, chronic condition with acute exacerbation STEVEN AYALA MD Jun 26, 2020 21:04
--- NOTE | 2020-06-26 23:01 | PN ---
DATE: 06/26/2020 PSYCHIATRIC PROGRESS NOTE This note covers elements not covered in my initial note 06/26/2020. SUBJECTIVE: I met with the patient in the evening of 06/26/2020 in his room. Discussed with ARNALDO Morocho. The patient slept 8-1/2 hours previous night. He had a very difficult night and vomited middle of the night, possibly aspirated. Dr. Case/Dr. Angulo is working this up. Chest x-ray was non-confirmatory for pneumonia, but he is running low-grade temperature 99.1. Complains of nausea, has been on Zofran p.r.n. WBC is 8 and neutrophils 80%. Again, defer to Dr. Angulo/Dr. Case for medical stabilization. In the interim, we will go ahead and stop his Seroquel 600 mg at bedtime to help with nighttime sedation. REVIEW OF SYSTEMS: Positive for tiredness. No CV, , pulmonary, eye system symptoms on review. MENTAL STATUS EXAM: Reasonably oriented. Speech is coherent, has some latency. Abstraction fair, computation impaired, language function intact, attention span short. Mood and affect withdrawn. LABORATORY DATA: Reviewed. IMPRESSION: Schizoaffective disorder, bipolar type, mixed with psychotic features, possible aspiration pneumonia. Rest unchanged. PLAN: Defer medical followup to Dr. Angulo/Dr. Case. Continue rest of the psychotropics, adjust as clinically indicated. MAN Suleman AYALA MD DR: ADALBERTO/garry JOB#: [id number] / [id number]
--- NOTE | 2020-06-27 00:31 | NUR ---
Nursing Note Pt found in bed slouched down, pulse between 106-115, temp 99.1, skin hot to touch, RR 24, sat 95% WBC 13.5. Dr. Kev collins, orders for chest xray in am and levaquin. First dose given. Pt has wet vocal quality, lungs are coarse with crackles bilat. States "I don't feel good" through secretions and garbled speech. Weak cough, has secretions in his oral airway he cannot clear. Later, pt repositioned in bed, and he became very resistive and states "You hate me, why are you so mean, take care of me, I want to leave." Informed pt we are taking care of him, and that we gave him his first dose of antibiotics. Pt argues "No you didn't, I want out!" Pt now resting, vitals rechecked at various intervals with mostly normal results, with the exception of the pulse, 110.
[2020-06-27] MEDS: levoFLOXacin 500 MG TABLET PO SCH ×3 (05:18→21:00)
[2020-06-27] MEDS: LEVOTHYROXINE 125 MCG TABLET PO SCH ×2 (05:19→06:00)
[2020-06-27 05:52] LABS: BASO # 0.1 x10^3/uL (0.0-0.2); BASO % 1 % (0-3); EOS # 0.3 x10^3/uL (0.0-0.7); EOS % 2 % (0-3); HEMATOCRIT 42.2 % (39.0-53.0); HEMOGLOBIN 13.4 g/dL (13.0-17.5); LYMPH # 1.8 x10^3/uL (1.0-4.8); LYMPH % 15 % (24-48); MEAN CORPUSCULAR HEMOGLOBIN 28 pg (25-35); MEAN CORPUSCULAR HGB CONC 32 g/dL (31-37); MEAN CORPUSCULAR VOLUME 89 fL (79-100); MONO # 0.9 x10^3/uL (0.0-1.1); MONO % 8 % (0-9); NEUT # 8.9 x10^3uL (1.8-7.7); NEUT % 74 % (31-73); PLATELET COUNT 278 x10^3/uL (140-400); RED BLOOD COUNT 4.74 x10^6/uL (4.30-5.70)
[2020-06-27 06:05] VITALS: BP 150/84
[2020-06-27 06:06] LABS: ALBUMIN 3.1 g/dL (3.4-5.0); ALBUMIN/GLOBULIN RATIO 0.7 (1.0-1.7); ALK PHOS 72 U/L (46-116); ALT (SGPT) 18 U/L (16-63); ANION GAP 12 (6-14); AST (SGOT) 14 U/L (15-37); BLOOD UREA NITROGEN 11 mg/dL (8-26); BUN/CREATININE RATIO 14 (6-20); CALCIUM 8.5 mg/dL (8.5-10.1); CARBON DIOXIDE 23 mmol/L (21-32); CHLORIDE 108 mmol/L (98-107); CREATININE 0.8 mg/dL (0.7-1.3); GFR 99.6; GLUCOSE 143 mg/dL (70-99); POTASSIUM 3.6 mmol/L (3.5-5.1); SODIUM 143 mmol/L (136-145); TOTAL BILIRUBIN 0.2 mg/dL (0.2-1.0); TOTAL PROTEIN 7.4 g/dL (6.4-8.2)
[2020-06-27 06:07] LABS: VAL ACID 44 mcg/mL (50-100)
--- NOTE | 2020-06-27 08:21 | RAD ---
XR CHEST 1V INDICATION: Reason: possible apsiration pneumonia / Spl. Instructions: / History: . COMPARISON STUDY: 06/25/2020. FINDINGS: Lungs: Normal lung volume. Unchanged mild interstitial prominence. Normal pulmonary vasculature. Pleura: No pleural effusion or pneumothorax. Heart and Mediastinum: Stable cardiomediastinal silhouette and great vessels. Bones and Soft Tissues: Stable regional skeleton and soft tissues. IMPRESSION: Unchanged mild interstitial prominence. Electronically signed by: Abraham Alamo MD (06/27/2020 8:19 AM) [id number]
[2020-06-27] MEDS: DOCUSATE SODIUM 100 MG CAPSULE PO SCH ×2 (09:00→21:00)
[2020-06-27] MEDS: MULTIVITAMIN with MINERAL TABLET. PO SCH (09:00)
[2020-06-27] MEDS: POLYETHYLENE GLYCOL 3350 17 GM PACKET. PO SCH (09:00)
[2020-06-27] MEDS: levETIRAcetam 500 MG TABLET PO SCH ×2 (10:55→21:00)
[2020-06-27] MEDS: cloZAPine 100 MG TABLET PO SCH ×2 (10:55→19:52)
[2020-06-27] MEDS: DIVALPROEX 125 MG CAP.SPRINK PO SCH ×2 (10:55→21:00)
[2020-06-27] MEDS: QUEtiapine 50 MG TABLET. PO SCH ×2 (10:55→16:00)
[2020-06-27] MEDS: PANTOPRAZOLE 40 MG TABLET. PO SCH (10:56)
[2020-06-27] MEDS: clonazePAM 0.5 MG TABLET PO SCH (10:56)
[2020-06-27] MEDS: PHENYTOIN SODIUM EXTENDED 100 MG CAPSULE PO SCH (10:56)
[2020-06-27] MEDS: SERTRALINE 50 MG TABLET. PO SCH (10:56)
[2020-06-27 16:03] VITALS: BP 156/81
--- NOTE | 2020-06-27 18:30 | NUR ---
Patient has been drowsy, lethargic, and disorganized throughout this shift. He has stayed withdrawn to his bed most of the shift, and stayed in his room all shift. He continues to have very wet vocalizations and difficulty swallowing. Per Speech therapy, patient should be NPO. Drs. Rios and Kev informed, new instructions received; report provided to oncoming shift.
[2020-06-27] MEDS: LACTOBACILLUS RHAMNOSUS GG 1 CAPSULE. PO SCH (21:00)
[2020-06-27] MEDS: PRAZOSIN 1 MG CAPSULE. PO SCH (21:00)
[2020-06-27] MEDS ORDERED: clonazePAM 0.5 MG TABLET PO SCH (21:00)
[2020-06-27] MEDS: ATORVASTATIN CALCIUM 10 MG TABLET. PO SCH (21:00)
[2020-06-27] MEDS ORDERED: PHENYTOIN 50 MG TAB.CHEW PO SCH (21:00)
[2020-06-27] MEDS: MIRABEGRON 25 MG TAB.ER.24H PO SCH (21:00)
[2020-06-27] MEDS: SUCRALFATE 1 GM TABLET. PO SCH (21:00)
[2020-06-27] MEDS: FENOFIBRATE NANOCRYSTALLIZED 145 MG TABLET PO SCH (21:00)
--- NOTE | 2020-06-27 21:11 | PDOC ---
Exam Note: Chad Note: Please also refer to the separate dictated note~for this date of service dictated separately.~Patient seen individually. Discussed the patient with Nursing staff reviewed the chart.~Reviewed interim history and current functioning. Reviewed vital signs,~Labs/ Radiology~and current medications noted below. Continue current treatment with the changes noted in the dictated addendum note Assessment: Vital Signs/I&O: Vital Signs Date Time Temp Pulse Resp B/P (MAP) Pulse Ox O2 Delivery O2 Flow Rate FiO2 06/27/20 16:03 98.4 103 16 156/81 (106) 95 06/26/20 16:36 Room Air I & O 06/26/20 06/26/20 06/27/20 15:00 23:00 07:00 Intake Total 360 ml 0 ml Balance 360 ml 0 ml Labs: Laboratory Tests Test 06/27/20 05:40 White Blood Count 12.0 x10^3/uL (4.0-11.0) H Red Blood Count 4.74 x10^6/uL (4.30-5.70) Hemoglobin 13.4 g/dL (13.0-17.5) Hematocrit 42.2 % (39.0-53.0) Mean Corpuscular Volume 89 fL (79-100) Mean Corpuscular Hemoglobin 28 pg (25-35) Mean Corpuscular Hemoglobin Concent 32 g/dL (31-37) Red Cell Distribution Width 15.0 % (11.5-14.5) H Platelet Count 278 x10^3/uL (140-400) Neutrophils (%) (Auto) 74 % (31-73) H Lymphocytes (%) (Auto) 15 % (24-48) L Monocytes (%) (Auto) 8 % (0-9) Eosinophils (%) (Auto) 2 % (0-3) Basophils (%) (Auto) 1 % (0-3) Neutrophils # (Auto) 8.9 x10^3uL (1.8-7.7) H Lymphocytes # (Auto) 1.8 x10^3/uL (1.0-4.8) Monocytes # (Auto) 0.9 x10^3/uL (0.0-1.1) Eosinophils # (Auto) 0.3 x10^3/uL (0.0-0.7) Basophils # (Auto) 0.1 x10^3/uL (0.0-0.2) Sodium Level 143 mmol/L (136-145) Potassium Level 3.6 mmol/L (3.5-5.1) Chloride Level 108 mmol/L (98-107) H Carbon Dioxide Level 23 mmol/L (21-32) Anion Gap 12 (6-14) Blood Urea Nitrogen 11 mg/dL (8-26) Creatinine 0.8 mg/dL (0.7-1.3) Estimated GFR (Cockcroft-Gault) 99.6 BUN/Creatinine Ratio 14 (6-20) Glucose Level 143 mg/dL (70-99) H Calcium Level 8.5 mg/dL (8.5-10.1) Total Bilirubin 0.2 mg/dL (0.2-1.0) Aspartate Amino Transferase (AST) 14 U/L (15-37) L Alanine Aminotransferase (ALT) 18 U/L (16-63) Alkaline Phosphatase 72 U/L (46-116) Ammonia 50 mcmol/L (11-34) H Total Protein 7.4 g/dL (6.4-8.2) Albumin 3.1 g/dL (3.4-5.0) L Albumin/Globulin Ratio 0.7 (1.0-1.7) L Valproic Acid Level 44 mcg/mL (50-100) L Valproic Acid Last Dose Date 06/26/2020 Valproic Acid Last Dose Time 2100 Current Medications: Meds: Laboratory Tests Test 06/27/20 05:40 White Blood Count 12.0 x10^3/uL Red Blood Count 4.74 x10^6/uL Hemoglobin 13.4 g/dL Hematocrit 42.2 % Mean Corpuscular Volume 89 fL Mean Corpuscular Hemoglobin 28 pg Mean Corpuscular Hemoglobin Concent 32 g/dL Red Cell Distribution Width 15.0 % Platelet Count 278 x10^3/uL Neutrophils (%) (Auto) 74 % Lymphocytes (%) (Auto) 15 % Monocytes (%) (Auto) 8 % Eosinophils (%) (Auto) 2 % Basophils (%) (Auto) 1 % Neutrophils # (Auto) 8.9 x10^3uL Lymphocytes # (Auto) 1.8 x10^3/uL Monocytes # (Auto) 0.9 x10^3/uL Eosinophils # (Auto) 0.3 x10^3/uL Basophils # (Auto) 0.1 x10^3/uL Sodium Level 143 mmol/L Potassium Level 3.6 mmol/L Chloride Level 108 mmol/L Carbon Dioxide Level 23 mmol/L Anion Gap 12 Blood Urea Nitrogen 11 mg/dL Creatinine 0.8 mg/dL Estimated GFR (Cockcroft-Gault) 99.6 BUN/Creatinine Ratio 14 Glucose Level 143 mg/dL Calcium Level 8.5 mg/dL Total Bilirubin 0.2 mg/dL Aspartate Amino Transf (AST/SGOT) 14 U/L Alanine Aminotransferase (ALT/SGPT) 18 U/L Alkaline Phosphatase 72 U/L Ammonia 50 mcmol/L Total Protein 7.4 g/dL Albumin 3.1 g/dL Albumin/Globulin Ratio 0.7 Valproic Acid (Depakene) Level 44 mcg/mL Valproic Acid Last Dose Date 06/26/2020 Valproic Acid Last Dose Time 2100 Current Medications Medications (Trade) Dose Ordered Sig/Edenilson Route PRN Reason Start Time Stop Time Status Last Admin Dose Admin Acetaminophen (Tylenol) 500 mg PRN Q4HRS PRN PO PAIN 06/15/20 21:15 06/18/20 14:09 Atorvastatin Calcium (Lipitor) 40 mg QHS PO 06/15/20 22:00 06/26/20 20:12 Clonazepam (KlonoPIN) 0.5 mg BID PO 06/15/20 22:00 06/27/20 18:02 DC 06/27/20 10:56 Fenofibrate (Tricor) 145 mg QHS PO 06/15/20 22:00 06/26/20 20:13 Levetiracetam (Keppra) 500 mg BID PO 06/15/20 22:00 06/27/20 10:55 Lorazepam (Ativan) 1 mg PRN BID PRN PO ANXIETY / AGITATION 06/15/20 21:15 06/23/20 11:01 Al Hydroxide/Mg Hydroxide (Mylanta Plus Xs) 30 ml PRN AFTMEALHC PRN PO DYSPEPSIA 06/15/20 21:15 06/17/20 18:25 Magnesium Hydroxide (Milk Of Magnesia) 2,400 mg PRN DAILY PRN PO CONSTIPATION 06/15/20 21:15 06/23/20 12:03 Olanzapine (ZyPREXA ZYDIS) 10 mg BID PO 06/15/20 22:00 06/27/20 10:55 Phenytoin Sodium (Dilantin) 100 mg DAILY PO 06/16/20 09:00 06/27/20 18:02 DC 06/27/20 10:56 Prazosin HCl (Minipress) 1 mg QHS PO 06/15/20 22:00 06/26/20 20:13 Quetiapine Fumarate (SEROquel) 50 mg BID94 PO 06/16/20 09:00 06/27/20 18:02 DC 06/27/20 10:55 Sertraline HCl (Zoloft) 50 mg DAILY PO 06/16/20 09:00 06/27/20 10:56 Sucralfate (Carafate) 1 gm HS PO 06/15/20 22:00 06/26/20 20:12 Clozapine (Clozaril) 200 mg DAILY PO 06/16/20 09:00 06/27/20 10:55 Clozapine (Clozaril) 600 mg QHS PO 06/15/20 22:00 06/27/20 19:52 Hydroxyzine Pamoate (Vistaril) 25 mg BID PO 06/15/20 22:00 06/22/20 17:59 DC 06/22/20 08:05 Lactulose (Lactulose) 20 gm TID PO 06/16/20 09:00 06/24/20 16:20 DC 06/24/20 08:53 Levothyroxine Sodium (Synthroid) 125 mcg DAILY06 PO 06/16/20 06:00 06/26/20 05:12 Loperamide HCl (Imodium) 2 mg PRN DAILY PRN PO loose stools 06/15/20 22:00 Multi-Ingredient Ointment (Analgesic [place]) 1 dennis PRN QID PRN TP MUSCLE PAIN 06/15/20 22:15 Mirabegron (Myrbetriq) 50 mg QHS PO 06/15/20 22:00 06/26/20 20:13 Multivitamins/ Calcium (Thera-M Plus) 1 tab DAILY PO 06/16/20 09:00 06/26/20 08:47 Pantoprazole Sodium (Protonix) 40 mg DAILYAC PO 06/16/20 07:30 06/27/20 10:56 Phenytoin Sodium (Dilantin) 200 mg HS PO 06/15/20 22:00 06/27/20 18:02 DC 06/26/20 20:12 Non-Formulary Medication (Quetiapine Fumarate (Seroquel Xr)) 600 mg QHS PO 06/16/20 21:00 06/16/20 17:14 DC Non-Formulary Medication (Tiagabine Hcl (Gabitril)) 4 mg TID PO 06/16/20 09:00 06/16/20 11:26 DC Olanzapine (ZyPREXA ZYDIS) 5 mg PRN Q2HR PRN PO PSYCHOSIS 06/16/20 11:30 06/18/20 14:47 Tiagabine HCl (Gabitril) 4 mg TID PO 06/16/20 14:00 06/23/20 16:54 DC 06/23/20 15:04 Quetiapine Fumarate (SEROquel) 600 mg QHS PO 06/16/20 21:00 06/26/20 17:25 DC 06/24/20 19:58 Divalproex Sodium (Depakote Er) 500 mg HS PO 06/16/20 21:00 06/17/20 02:14 DC 06/16/20 20:44 Divalproex Sodium (Depakote Sprinkles) 500 mg QHS PO 06/17/20 21:00 06/19/20 17:09 DC 06/18/20 19:40 Divalproex Sodium (Depakote Sprinkles) 500 mg BID PO 06/19/20 21:00 06/23/20 21:00 DC 06/23/20 21:10 Ondansetron HCl (Zofran Odt) 4 mg PRN Q4HRS PRN PO NAUSEA/VOMITING 06/20/20 21:45 06/26/20 08:05 Docusate Sodium (Colace) 100 mg BID PO 06/23/20 21:00 06/26/20 20:12 Polyethylene Glycol (miraLAX) 17 gm DAILY PO 06/24/20 09:00 06/26/20 08:45 Divalproex Sodium (Depakote Sprinkles) 750 mg BID PO 06/24/20 09:00 06/27/20 10:55 Levofloxacin (Levaquin) 500 mg DAILY06 PO 06/26/20 19:45 06/27/20 10:34 DC 06/26/20 20:11 Levofloxacin (Levaquin) 500 mg Q24H PO 06/27/20 21:00 Lactobacillus Rhamnosus (Culturelle) 1 cap BID PO 06/27/20 21:00 Clonazepam (KlonoPIN) 0.5 mg QHS PO 06/27/20 21:00 06/29/20 23:50 Phenytoin Sodium (Dilantin) 100 mg DAILY PO 06/28/20 09:00 Phenytoin Sodium (Dilantin) 200 mg QHS PO 06/27/20 21:00 06/27/20 19:52 Current Medications Medications (Trade) Dose Ordered Sig/Edenilson Route PRN Reason Start Time Stop Time Status Last Admin Dose Admin Phenytoin Sodium (Dilantin) 200 mg QHS PO 06/27/20 21:00 06/27/20 19:52 I have reviewed the current psychotropics carefully including drug interactions. Risk benefit ratio favors no change other than as noted in my dictated progress note. Diagnosis: Problems: (1) Schizoaffective disorder, chronic condition with acute exacerbation (2) Impulse control disorder (3) Dementia in Alzheimer's disease with delusions (4) Anxiety disorder, unspecified (5) Mild intellectual disability (6) Bipolar disorder, curr episode mixed, severe, with psychotic features STEVEN AYALA MD Jun 27, 2020 21:11
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
[2020-06-28] MEDS: LEVOTHYROXINE 125 MCG TABLET PO SCH (06:00)
[2020-06-28 06:33] VITALS: BP 155/84
[2020-06-28] MEDS: PANTOPRAZOLE 40 MG TABLET. PO SCH (07:30)
[2020-06-28] MEDS: cloZAPine 100 MG TABLET PO SCH (08:15)
[2020-06-28] MEDS: DIVALPROEX 125 MG CAP.SPRINK PO SCH ×2 (08:15→21:00)
[2020-06-28] MEDS: LACTOBACILLUS RHAMNOSUS GG 1 CAPSULE. PO SCH ×2 (08:15→21:00)
[2020-06-28] MEDS: DOCUSATE SODIUM 100 MG CAPSULE PO SCH ×2 (08:15→21:00)
[2020-06-28] MEDS: levETIRAcetam 500 MG TABLET PO SCH (08:15)
[2020-06-28] MEDS: POLYETHYLENE GLYCOL 3350 17 GM PACKET. PO SCH (08:16)
[2020-06-28] MEDS: SERTRALINE 50 MG TABLET. PO SCH (08:16)
[2020-06-28] MEDS: MULTIVITAMIN with MINERAL TABLET. PO SCH (08:16)
[2020-06-28] MEDS ORDERED: PHENYTOIN 50 MG TAB.CHEW PO SCH (09:00)
[2020-06-28] MEDS ORDERED: IV NORMAL SALINE 1,000ML 1,000 ML IV ONE (16:00)
[2020-06-28 16:02] VITALS: BP 139/84
--- NOTE | 2020-06-28 17:18 | NUR ---
22 gave IV started in the L FA by this nurse with 1 attempt. Transparent dressing secured to IV site. Pt tolerated insertion well. IV fluids now infusing. Addendum: 06/28/20 at 1720 by CRYSTAL BLOOM RN Sheyla angeles
--- NOTE | 2020-06-28 17:39 | NUR ---
Dr Angulo saw pt this am. Did not feel he needed to be moved to the med floor as his CXR was neg, his lungs were clear and he is afebrile. Asked nurse to give pt water. Pt drank about 120 cc of thickened. Pt had difficulty swallowing but did not appear to choke. Pt has been weak and quiet today. Resting on quiet room mats. Has been awake most times. Called Dr Angulo r/t pt not eating or drinking. Order to give 1000 cc NS bolus and repeat lab in am. Spoke with brother Carlos regarding pt condition update. Dr Young called to ask about seizure medications he is taking and alternatives.
[2020-06-28] MEDS: FOSPHENYTOIN 100 MG/2 ML VIAL IV SCH (20:07)
--- NOTE | 2020-06-28 20:57 | PDOC ---
Exam Note: Chad Note: Please also refer to the separate dictated note~for this date of service dictated separately.~Patient seen individually. Discussed the patient with Nursing staff reviewed the chart.~Reviewed interim history and current functioning. Reviewed vital signs,~Labs/ Radiology~and current medications noted below. Continue current treatment with the changes noted in the dictated addendum note Assessment: Vital Signs/I&O: Vital Signs Date Time Temp Pulse Resp B/P (MAP) Pulse Ox O2 Delivery O2 Flow Rate FiO2 06/28/20 16:02 98.5 100 16 139/84 (102) 98 06/26/20 16:36 Room Air I & O 06/27/20 06/27/20 06/28/20 15:00 23:00 07:00 Intake Total 80 ml 0 ml Balance 80 ml 0 ml Current Medications: Meds: Current Medications Medications (Trade) Dose Ordered Sig/Edenilson Route PRN Reason Start Time Stop Time Status Last Admin Dose Admin Acetaminophen (Tylenol) 500 mg PRN Q4HRS PRN PO PAIN 06/15/20 21:15 06/18/20 14:09 Atorvastatin Calcium (Lipitor) 40 mg QHS PO 06/15/20 22:00 06/26/20 20:12 Clonazepam (KlonoPIN) 0.5 mg BID PO 06/15/20 22:00 06/27/20 18:02 DC 06/27/20 10:56 Fenofibrate (Tricor) 145 mg QHS PO 06/15/20 22:00 06/26/20 20:13 Levetiracetam (Keppra) 500 mg BID PO 06/15/20 22:00 06/28/20 19:00 DC 06/27/20 10:55 Lorazepam (Ativan) 1 mg PRN BID PRN PO ANXIETY / AGITATION 06/15/20 21:15 06/23/20 11:01 Al Hydroxide/Mg Hydroxide (Mylanta Plus Xs) 30 ml PRN AFTMEALHC PRN PO DYSPEPSIA 06/15/20 21:15 06/17/20 18:25 Magnesium Hydroxide (Milk Of Magnesia) 2,400 mg PRN DAILY PRN PO CONSTIPATION 06/15/20 21:15 06/23/20 12:03 Olanzapine (ZyPREXA ZYDIS) 10 mg BID PO 06/15/20 22:00 06/27/20 10:55 Phenytoin Sodium (Dilantin) 100 mg DAILY PO 06/16/20 09:00 06/27/20 18:02 DC 06/27/20 10:56 Prazosin HCl (Minipress) 1 mg QHS PO 06/15/20 22:00 06/26/20 20:13 Quetiapine Fumarate (SEROquel) 50 mg BID94 PO 06/16/20 09:00 06/27/20 18:02 DC 06/27/20 10:55 Sertraline HCl (Zoloft) 50 mg DAILY PO 06/16/20 09:00 06/27/20 10:56 Sucralfate (Carafate) 1 gm HS PO 06/15/20 22:00 06/26/20 20:12 Clozapine (Clozaril) 200 mg DAILY PO 06/16/20 09:00 06/28/20 18:00 DC 06/27/20 10:55 Clozapine (Clozaril) 600 mg QHS PO 06/15/20 22:00 06/28/20 18:00 DC 06/27/20 19:52 Hydroxyzine Pamoate (Vistaril) 25 mg BID PO 06/15/20 22:00 06/22/20 17:59 DC 06/22/20 08:05 Lactulose (Lactulose) 20 gm TID PO 06/16/20 09:00 06/24/20 16:20 DC 06/24/20 08:53 Levothyroxine Sodium (Synthroid) 125 mcg DAILY06 PO 06/16/20 06:00 06/26/20 05:12 Loperamide HCl (Imodium) 2 mg PRN DAILY PRN PO loose stools 06/15/20 22:00 Multi-Ingredient Ointment (Analgesic [place]) 1 dennis PRN QID PRN TP MUSCLE PAIN 06/15/20 22:15 Mirabegron (Myrbetriq) 50 mg QHS PO 06/15/20 22:00 06/26/20 20:13 Multivitamins/ Calcium (Thera-M Plus) 1 tab DAILY PO 06/16/20 09:00 06/26/20 08:47 Pantoprazole Sodium (Protonix) 40 mg DAILYAC PO 06/16/20 07:30 06/27/20 10:56 Phenytoin Sodium (Dilantin) 200 mg HS PO 06/15/20 22:00 06/27/20 18:02 DC 06/26/20 20:12 Non-Formulary Medication (Quetiapine Fumarate (Seroquel Xr)) 600 mg QHS PO 06/16/20 21:00 06/16/20 17:14 DC Non-Formulary Medication (Tiagabine Hcl (Gabitril)) 4 mg TID PO 06/16/20 09:00 06/16/20 11:26 DC Olanzapine (ZyPREXA ZYDIS) 5 mg PRN Q2HR PRN PO PSYCHOSIS 06/16/20 11:30 06/18/20 14:47 Tiagabine HCl (Gabitril) 4 mg TID PO 06/16/20 14:00 06/23/20 16:54 DC 06/23/20 15:04 Quetiapine Fumarate (SEROquel) 600 mg QHS PO 06/16/20 21:00 06/26/20 17:25 DC 06/24/20 19:58 Divalproex Sodium (Depakote Er) 500 mg HS PO 06/16/20 21:00 06/17/20 02:14 DC 06/16/20 20:44 Divalproex Sodium (Depakote Sprinkles) 500 mg QHS PO 06/17/20 21:00 06/19/20 17:09 DC 06/18/20 19:40 Divalproex Sodium (Depakote Sprinkles) 500 mg BID PO 06/19/20 21:00 06/23/20 21:00 DC 06/23/20 21:10 Ondansetron HCl (Zofran Odt) 4 mg PRN Q4HRS PRN PO NAUSEA/VOMITING 06/20/20 21:45 06/26/20 08:05 Docusate Sodium (Colace) 100 mg BID PO 06/23/20 21:00 06/26/20 20:12 Polyethylene Glycol (miraLAX) 17 gm DAILY PO 06/24/20 09:00 06/26/20 08:45 Divalproex Sodium (Depakote Sprinkles) 750 mg BID PO 06/24/20 09:00 06/27/20 10:55 Levofloxacin (Levaquin) 500 mg DAILY06 PO 06/26/20 19:45 06/27/20 10:34 DC 06/26/20 20:11 Levofloxacin (Levaquin) 500 mg Q24H PO 06/27/20 21:00 Lactobacillus Rhamnosus (Culturelle) 1 cap BID PO 06/27/20 21:00 Clonazepam (KlonoPIN) 0.5 mg QHS PO 06/27/20 21:00 06/28/20 07:00 DC Phenytoin Sodium (Dilantin) 100 mg DAILY PO 06/28/20 09:00 06/28/20 19:00 DC Phenytoin Sodium (Dilantin) 200 mg QHS PO 06/27/20 21:00 06/28/20 19:00 DC 06/27/20 19:52 Sodium Chloride 1,000 ml @ 1,000 mls/hr 1X ONCE IV 06/28/20 16:00 06/28/20 16:59 DC 06/28/20 16:00 Fosphenytoin Sodium (Cerebyx) 300 mg HS IV 06/28/20 21:00 06/28/20 20:07 Levetiracetam 500 mg/Sodium Chloride 100 ml @ 400 mls/hr Q12HR IV 06/28/20 21:00 Current Medications Medications (Trade) Dose Ordered Sig/Edenilson Route PRN Reason Start Time Stop Time Status Last Admin Dose Admin Phenytoin Sodium (Dilantin) 200 mg QHS PO 06/27/20 21:00 06/28/20 19:00 DC 06/27/20 19:52 Sodium Chloride 1,000 ml @ 1,000 mls/hr 1X ONCE IV 06/28/20 16:00 06/28/20 16:59 DC 06/28/20 16:00 Fosphenytoin Sodium (Cerebyx) 300 mg HS IV 06/28/20 21:00 06/28/20 20:07 I have reviewed the current psychotropics carefully including drug interactions. Risk benefit ratio favors no change other than as noted in my dictated progress note. Diagnosis: Problems: (1) Anxiety disorder, unspecified (2) Bipolar disorder, curr episode mixed, severe, with psychotic features (3) Mild intellectual disability (4) Impulse control disorder (5) Schizoaffective disorder, chronic condition with acute exacerbation STEVEN AYALA MD Jun 28, 2020 20:57
[2020-06-28] MEDS: levoFLOXacin 500 MG TABLET PO SCH (21:00)
[2020-06-28] MEDS: SUCRALFATE 1 GM TABLET. PO SCH (21:00)
[2020-06-28] MEDS: MIRABEGRON 25 MG TAB.ER.24H PO SCH (21:00)
[2020-06-28] MEDS: ATORVASTATIN CALCIUM 10 MG TABLET. PO SCH (21:00)
[2020-06-28] MEDS: PRAZOSIN 1 MG CAPSULE. PO SCH (21:00)
[2020-06-28] MEDS: FENOFIBRATE NANOCRYSTALLIZED 145 MG TABLET PO SCH (21:00)
--- NOTE | 2020-06-29 01:32 | NUR ---
Nursing Note Pt on floor in quiet room on mattress. Will awaken to voice, is very weak, cannot move his own limbs, cannot swallow getting IV seizure meds. VSS at this time, incontinent of urine. Lungs diminished, poor inspiratory effort.
[2020-06-29] MEDS: LEVOTHYROXINE 125 MCG TABLET PO SCH (01:35)
[2020-06-29 01:38] VITALS: BP 147/85
[2020-06-29 06:30] VITALS: BP 136/79
--- NOTE | 2020-06-29 07:28 | PDOC ---
Exam Note: Chad Note: This note is a late entry for 06/27/2020 covers elements not covered in my initial note. Subjective: The patient was seen face to face in the evening of 06/27/2020 with nursing staff, reviewed the chart. The patient slept 7-1/2 hours previous night. The patient remains withdrawn. His aspiration risk has been on clear liquid diet, started on Levaquin. WBC 13.5, temperature 99.9. We will defer medical management to Dr. Angulo/Dr. Case. Review of Systems: No CV, , pulmonary, eye, ENT system symptoms on review. Mental Status Exam: The patient is quite withdrawn, not very verbally interactive. Often verbal response is monosyllabic. Abstraction is fair. Computation is impaired. Language function is intact. Mood and affect withdrawn. Laboratory Data: Reviewed. Impression: Schizoaffective disorder, bipolar type mixed with psychotic features. Anxiety disorder unspecified. Impulse control disorder unspecified. Mild intellectual disability. Plan: We will defer medical management to Dr. Angulo/Dr. Case. We will taper and stop the Klonopin. Discontinue the Seroquel 50 mg b.i.d. and Zyprexa will also be gradually stopped to reduce sedation and he remains on Clozaril and we may have to stop that two, depending on how he does over the next 24 to 48 hours. The problem is stopping Clozaril entirely would be restarting would have to be done in increments of 25 mg. Treat the aspiration pneumonia. Reduce psychotropics. Adjust further as clinically indicated. Assessment: Vital Signs/I&O: Vital Signs Date Time Temp Pulse Resp B/P (MAP) Pulse Ox O2 Delivery O2 Flow Rate FiO2 06/29/20 06:30 97.4 84 24 136/79 (98) 98 06/29/20 01:38 Room Air I & O 06/28/20 06/28/20 06/29/20 15:00 23:00 07:00 Intake Total 220 ml 1000 ml Balance 220 ml 1000 ml Current Medications: Meds: Current Medications Medications (Trade) Dose Ordered Sig/Edenilson Route PRN Reason Start Time Stop Time Status Last Admin Dose Admin Acetaminophen (Tylenol) 500 mg PRN Q4HRS PRN PO PAIN 06/15/20 21:15 06/18/20 14:09 Atorvastatin Calcium (Lipitor) 40 mg QHS PO 06/15/20 22:00 06/26/20 20:12 Clonazepam (KlonoPIN) 0.5 mg BID PO 06/15/20 22:00 06/27/20 18:02 DC 06/27/20 10:56 Fenofibrate (Tricor) 145 mg QHS PO 06/15/20 22:00 06/26/20 20:13 Levetiracetam (Keppra) 500 mg BID PO 06/15/20 22:00 06/28/20 19:00 DC 06/27/20 10:55 Lorazepam (Ativan) 1 mg PRN BID PRN PO ANXIETY / AGITATION 06/15/20 21:15 06/23/20 11:01 Al Hydroxide/Mg Hydroxide (Mylanta Plus Xs) 30 ml PRN AFTMEALHC PRN PO DYSPEPSIA 06/15/20 21:15 06/17/20 18:25 Magnesium Hydroxide (Milk Of Magnesia) 2,400 mg PRN DAILY PRN PO CONSTIPATION 06/15/20 21:15 06/23/20 12:03 Olanzapine (ZyPREXA ZYDIS) 10 mg BID PO 06/15/20 22:00 06/27/20 10:55 Phenytoin Sodium (Dilantin) 100 mg DAILY PO 06/16/20 09:00 06/27/20 18:02 DC 06/27/20 10:56 Prazosin HCl (Minipress) 1 mg QHS PO 06/15/20 22:00 06/26/20 20:13 Quetiapine Fumarate (SEROquel) 50 mg BID94 PO 06/16/20 09:00 06/27/20 18:02 DC 06/27/20 10:55 Sertraline HCl (Zoloft) 50 mg DAILY PO 06/16/20 09:00 06/27/20 10:56 Sucralfate (Carafate) 1 gm HS PO 06/15/20 22:00 06/26/20 20:12 Clozapine (Clozaril) 200 mg DAILY PO 06/16/20 09:00 06/28/20 18:00 DC 06/27/20 10:55 Clozapine (Clozaril) 600 mg QHS PO 06/15/20 22:00 06/28/20 18:00 DC 06/27/20 19:52 Hydroxyzine Pamoate (Vistaril) 25 mg BID PO 06/15/20 22:00 06/22/20 17:59 DC 06/22/20 08:05 Lactulose (Lactulose) 20 gm TID PO 06/16/20 09:00 06/24/20 16:20 DC 06/24/20 08:53 Levothyroxine Sodium (Synthroid) 125 mcg DAILY06 PO 06/16/20 06:00 06/26/20 05:12 Loperamide HCl (Imodium) 2 mg PRN DAILY PRN PO loose stools 06/15/20 22:00 Multi-Ingredient Ointment (Analgesic [place]) 1 dennis PRN QID PRN TP MUSCLE PAIN 06/15/20 22:15 Mirabegron (Myrbetriq) 50 mg QHS PO 06/15/20 22:00 06/26/20 20:13 Multivitamins/ Calcium (Thera-M Plus) 1 tab DAILY PO 06/16/20 09:00 06/26/20 08:47 Pantoprazole Sodium (Protonix) 40 mg DAILYAC PO 06/16/20 07:30 06/27/20 10:56 Phenytoin Sodium (Dilantin) 200 mg HS PO 06/15/20 22:00 06/27/20 18:02 DC 06/26/20 20:12 Non-Formulary Medication (Quetiapine Fumarate (Seroquel Xr)) 600 mg QHS PO 06/16/20 21:00 06/16/20 17:14 DC Non-Formulary Medication (Tiagabine Hcl (Gabitril)) 4 mg TID PO 06/16/20 09:00 06/16/20 11:26 DC Olanzapine (ZyPREXA ZYDIS) 5 mg PRN Q2HR PRN PO PSYCHOSIS 06/16/20 11:30 06/18/20 14:47 Tiagabine HCl (Gabitril) 4 mg TID PO 06/16/20 14:00 06/23/20 16:54 DC 06/23/20 15:04 Quetiapine Fumarate (SEROquel) 600 mg QHS PO 06/16/20 21:00 06/26/20 17:25 DC 06/24/20 19:58 Divalproex Sodium (Depakote Er) 500 mg HS PO 06/16/20 21:00 06/17/20 02:14 DC 06/16/20 20:44 Divalproex Sodium (Depakote Sprinkles) 500 mg QHS PO 06/17/20 21:00 06/19/20 17:09 DC 06/18/20 19:40 Divalproex Sodium (Depakote Sprinkles) 500 mg BID PO 06/19/20 21:00 06/23/20 21:00 DC 06/23/20 21:10 Ondansetron HCl (Zofran Odt) 4 mg PRN Q4HRS PRN PO NAUSEA/VOMITING 06/20/20 21:45 06/26/20 08:05 Docusate Sodium (Colace) 100 mg BID PO 06/23/20 21:00 06/26/20 20:12 Polyethylene Glycol (miraLAX) 17 gm DAILY PO 06/24/20 09:00 06/26/20 08:45 Divalproex Sodium (Depakote Sprinkles) 750 mg BID PO 06/24/20 09:00 06/27/20 10:55 Levofloxacin (Levaquin) 500 mg DAILY06 PO 06/26/20 19:45 06/27/20 10:34 DC 06/26/20 20:11 Levofloxacin (Levaquin) 500 mg Q24H PO 06/27/20 21:00 Lactobacillus Rhamnosus (Culturelle) 1 cap BID PO 06/27/20 21:00 Clonazepam (KlonoPIN) 0.5 mg QHS PO 06/27/20 21:00 06/28/20 07:00 DC Phenytoin Sodium (Dilantin) 100 mg DAILY PO 06/28/20 09:00 06/28/20 19:00 DC Phenytoin Sodium (Dilantin) 200 mg QHS PO 06/27/20 21:00 06/28/20 19:00 DC 06/27/20 19:52 Sodium Chloride 1,000 ml @ 1,000 mls/hr 1X ONCE IV 06/28/20 16:00 06/28/20 16:59 DC 06/28/20 16:00 Fosphenytoin Sodium (Cerebyx) 300 mg HS IV 06/28/20 21:00 06/28/20 20:07 Levetiracetam 500 mg/Sodium Chloride 100 ml @ 400 mls/hr Q12HR IV 06/28/20 21:00 06/28/20 21:35 Current Medications Medications (Trade) Dose Ordered Sig/Edenilson Route PRN Reason Start Time Stop Time Status Last Admin Dose Admin Sodium Chloride 1,000 ml @ 1,000 mls/hr 1X ONCE IV 06/28/20 16:00 06/28/20 16:59 DC 06/28/20 16:00 Fosphenytoin Sodium (Cerebyx) 300 mg HS IV 06/28/20 21:00 06/28/20 20:07 Levetiracetam 500 mg/Sodium Chloride 100 ml @ 400 mls/hr Q12HR IV 06/28/20 21:00 06/28/20 21:35 I have reviewed the current psychotropics carefully including drug interactions. Risk benefit ratio favors no change other than as noted in my dictated progress note. Diagnosis: Problems: (1) Bipolar disorder, curr episode mixed, severe, with psychotic features (2) Anxiety disorder, unspecified (3) Schizoaffective disorder, chronic condition with acute exacerbation (4) Impulse control disorder (5) Mild intellectual disability STEVEN AYALA MD Jun 29, 2020 07:28
[2020-06-29] MEDS: PANTOPRAZOLE 40 MG TABLET. PO SCH (07:30)
--- NOTE | 2020-06-29 07:57 | PDOC ---
Exam Note: Chad Note: This note is a late entry for 06/28/2020 covers elements not covered in my initial note. Subjective: The patient was seen face to face in the evening of 06/28/2020 with Luz Elena MCINTOSH. Discussed with nursing staff, reviewed the chart. The patient slept 8-1/4 hours previous night. The patient was yelling previous night, aspiration risk, [place] He did get a bolus of fluids. Given his ongoing sedation, we will stop the Clozaril. We previously stopped the Klonopin and Seroquel, taper and stop the Zyprexa. Review of Systems: Positive for tiredness. No CV, , pulmonary, eye system symptoms on review. Mental Status Exam: The patient is oriented to himself and situation. Often verbal response is monosyllabic. Insight, judgement, recent memory is impaired. Language function is intact. Mood and affect withdrawn. Laboratory Data: Reviewed. Impression: Schizoaffective disorder, bipolar type mixed with psychotic features. Anxiety disorder unspecified. Impulse control disorder unspecified. Mild intellectual disability. Plan: As noted above. Assessment: Vital Signs/I&O: Vital Signs Date Time Temp Pulse Resp B/P (MAP) Pulse Ox O2 Delivery O2 Flow Rate FiO2 06/29/20 06:30 97.4 84 24 136/79 (98) 98 06/29/20 01:38 Room Air I & O 06/28/20 06/28/20 06/29/20 14:59 22:59 06:59 Intake Total 220 ml 1000 ml Balance 220 ml 1000 ml Current Medications: Meds: Current Medications Medications (Trade) Dose Ordered Sig/Edenilson Route PRN Reason Start Time Stop Time Status Last Admin Dose Admin Acetaminophen (Tylenol) 500 mg PRN Q4HRS PRN PO PAIN 06/15/20 21:15 06/18/20 14:09 Atorvastatin Calcium (Lipitor) 40 mg QHS PO 06/15/20 22:00 06/26/20 20:12 Clonazepam (KlonoPIN) 0.5 mg BID PO 06/15/20 22:00 06/27/20 18:02 DC 06/27/20 10:56 Fenofibrate (Tricor) 145 mg QHS PO 06/15/20 22:00 06/26/20 20:13 Levetiracetam (Keppra) 500 mg BID PO 06/15/20 22:00 06/28/20 19:00 DC 06/27/20 10:55 Lorazepam (Ativan) 1 mg PRN BID PRN PO ANXIETY / AGITATION 06/15/20 21:15 06/23/20 11:01 Al Hydroxide/Mg Hydroxide (Mylanta Plus Xs) 30 ml PRN AFTMEALHC PRN PO DYSPEPSIA 06/15/20 21:15 06/17/20 18:25 Magnesium Hydroxide (Milk Of Magnesia) 2,400 mg PRN DAILY PRN PO CONSTIPATION 06/15/20 21:15 06/23/20 12:03 Olanzapine (ZyPREXA ZYDIS) 10 mg BID PO 06/15/20 22:00 06/27/20 10:55 Phenytoin Sodium (Dilantin) 100 mg DAILY PO 06/16/20 09:00 06/27/20 18:02 DC 06/27/20 10:56 Prazosin HCl (Minipress) 1 mg QHS PO 06/15/20 22:00 06/26/20 20:13 Quetiapine Fumarate (SEROquel) 50 mg BID94 PO 06/16/20 09:00 06/27/20 18:02 DC 06/27/20 10:55 Sertraline HCl (Zoloft) 50 mg DAILY PO 06/16/20 09:00 06/27/20 10:56 Sucralfate (Carafate) 1 gm HS PO 06/15/20 22:00 06/26/20 20:12 Clozapine (Clozaril) 200 mg DAILY PO 06/16/20 09:00 06/28/20 18:00 DC 06/27/20 10:55 Clozapine (Clozaril) 600 mg QHS PO 06/15/20 22:00 06/28/20 18:00 DC 06/27/20 19:52 Hydroxyzine Pamoate (Vistaril) 25 mg BID PO 06/15/20 22:00 06/22/20 17:59 DC 06/22/20 08:05 Lactulose (Lactulose) 20 gm TID PO 06/16/20 09:00 06/24/20 16:20 DC 06/24/20 08:53 Levothyroxine Sodium (Synthroid) 125 mcg DAILY06 PO 06/16/20 06:00 06/26/20 05:12 Loperamide HCl (Imodium) 2 mg PRN DAILY PRN PO loose stools 06/15/20 22:00 Multi-Ingredient Ointment (Analgesic [place]) 1 dennis PRN QID PRN TP MUSCLE PAIN 06/15/20 22:15 Mirabegron (Myrbetriq) 50 mg QHS PO 06/15/20 22:00 06/26/20 20:13 Multivitamins/ Calcium (Thera-M Plus) 1 tab DAILY PO 06/16/20 09:00 06/26/20 08:47 Pantoprazole Sodium (Protonix) 40 mg DAILYAC PO 06/16/20 07:30 06/27/20 10:56 Phenytoin Sodium (Dilantin) 200 mg HS PO 06/15/20 22:00 06/27/20 18:02 DC 06/26/20 20:12 Non-Formulary Medication (Quetiapine Fumarate (Seroquel Xr)) 600 mg QHS PO 06/16/20 21:00 06/16/20 17:14 DC Non-Formulary Medication (Tiagabine Hcl (Gabitril)) 4 mg TID PO 06/16/20 09:00 06/16/20 11:26 DC Olanzapine (ZyPREXA ZYDIS) 5 mg PRN Q2HR PRN PO PSYCHOSIS 06/16/20 11:30 06/18/20 14:47 Tiagabine HCl (Gabitril) 4 mg TID PO 06/16/20 14:00 06/23/20 16:54 DC 06/23/20 15:04 Quetiapine Fumarate (SEROquel) 600 mg QHS PO 06/16/20 21:00 06/26/20 17:25 DC 06/24/20 19:58 Divalproex Sodium (Depakote Er) 500 mg HS PO 06/16/20 21:00 06/17/20 02:14 DC 06/16/20 20:44 Divalproex Sodium (Depakote Sprinkles) 500 mg QHS PO 06/17/20 21:00 06/19/20 17:09 DC 06/18/20 19:40 Divalproex Sodium (Depakote Sprinkles) 500 mg BID PO 06/19/20 21:00 06/23/20 21:00 DC 06/23/20 21:10 Ondansetron HCl (Zofran Odt) 4 mg PRN Q4HRS PRN PO NAUSEA/VOMITING 06/20/20 21:45 06/26/20 08:05 Docusate Sodium (Colace) 100 mg BID PO 06/23/20 21:00 06/26/20 20:12 Polyethylene Glycol (miraLAX) 17 gm DAILY PO 06/24/20 09:00 06/26/20 08:45 Divalproex Sodium (Depakote Sprinkles) 750 mg BID PO 06/24/20 09:00 06/27/20 10:55 Levofloxacin (Levaquin) 500 mg DAILY06 PO 06/26/20 19:45 06/27/20 10:34 DC 06/26/20 20:11 Levofloxacin (Levaquin) 500 mg Q24H PO 06/27/20 21:00 Lactobacillus Rhamnosus (Culturelle) 1 cap BID PO 06/27/20 21:00 Clonazepam (KlonoPIN) 0.5 mg QHS PO 06/27/20 21:00 06/28/20 07:00 DC Phenytoin Sodium (Dilantin) 100 mg DAILY PO 06/28/20 09:00 06/28/20 19:00 DC Phenytoin Sodium (Dilantin) 200 mg QHS PO 06/27/20 21:00 06/28/20 19:00 DC 06/27/20 19:52 Sodium Chloride 1,000 ml @ 1,000 mls/hr 1X ONCE IV 06/28/20 16:00 06/28/20 16:59 DC 06/28/20 16:00 Fosphenytoin Sodium (Cerebyx) 300 mg HS IV 06/28/20 21:00 06/28/20 20:07 Levetiracetam 500 mg/Sodium Chloride 100 ml @ 400 mls/hr Q12HR IV 06/28/20 21:00 06/28/20 21:35 Current Medications Medications (Trade) Dose Ordered Sig/Edenilson Route PRN Reason Start Time Stop Time Status Last Admin Dose Admin Sodium Chloride 1,000 ml @ 1,000 mls/hr 1X ONCE IV 06/28/20 16:00 06/28/20 16:59 DC 06/28/20 16:00 Fosphenytoin Sodium (Cerebyx) 300 mg HS IV 06/28/20 21:00 06/28/20 20:07 Levetiracetam 500 mg/Sodium Chloride 100 ml @ 400 mls/hr Q12HR IV 06/28/20 21:00 06/28/20 21:35 I have reviewed the current psychotropics carefully including drug interactions. Risk benefit ratio favors no change other than as noted in my dictated progress note. Diagnosis: Problems: (1) Intellectual disability (2) Anxiety disorder, unspecified (3) Bipolar disorder, curr episode mixed, severe, with psychotic features (4) Schizoaffective disorder, chronic condition with acute exacerbation (5) Impulse control disorder STEVEN AYALA MD Jun 29, 2020 07:57
[2020-06-29] MEDS: DOCUSATE SODIUM 100 MG CAPSULE PO SCH ×2 (08:06→20:10)
[2020-06-29] MEDS: LACTOBACILLUS RHAMNOSUS GG 1 CAPSULE. PO SCH ×2 (08:06→20:10)
[2020-06-29] MEDS: DIVALPROEX 125 MG CAP.SPRINK PO SCH ×2 (08:06→20:10)
[2020-06-29] MEDS: POLYETHYLENE GLYCOL 3350 17 GM PACKET. PO SCH (08:06)
[2020-06-29] MEDS: MULTIVITAMIN with MINERAL TABLET. PO SCH (08:07)
[2020-06-29] MEDS: SERTRALINE 50 MG TABLET. PO SCH (08:07)
[2020-06-29 08:50] LABS: BASO % 0 % (0-3); EOS # 0.1 x10^3/uL (0.0-0.7); EOS % 1 % (0-3); HEMATOCRIT 40.7 % (39.0-53.0); HEMOGLOBIN 13.2 g/dL (13.0-17.5); LYMPH # 1.6 x10^3/uL (1.0-4.8); LYMPH % 17 % (24-48); MEAN CORPUSCULAR HEMOGLOBIN 29 pg (25-35); MEAN CORPUSCULAR HGB CONC 32 g/dL (31-37); MEAN CORPUSCULAR VOLUME 89 fL (79-100); MONO # 0.9 x10^3/uL (0.0-1.1); MONO % 10 % (0-9); NEUT # 6.8 x10^3uL (1.8-7.7); NEUT % 72 % (31-73); PLATELET COUNT 280 x10^3/uL (140-400); RED BLOOD COUNT 4.56 x10^6/uL (4.30-5.70); RED CELL DISTRIBUTION WIDTH 14.7 % (11.5-14.5); WHITE BLOOD COUNT 9.4 x10^3/uL (4.0-11.0)
[2020-06-29 09:11] LABS: ALBUMIN 2.9 g/dL (3.4-5.0); ALBUMIN/GLOBULIN RATIO 0.6 (1.0-1.7); CALCIUM 8.2 mg/dL (8.5-10.1); CREATININE 0.7 mg/dL (0.7-1.3); GFR 116.2; POTASSIUM 3.6 mmol/L (3.5-5.1); TOTAL BILIRUBIN 0.2 mg/dL (0.2-1.0); TOTAL PROTEIN 7.4 g/dL (6.4-8.2)
--- NOTE | 2020-06-29 15:54 | NUR ---
Pt awake most of day. Has received IV meds. Pt placed back in bed. Attempted to give pt thickened. water. Coughed after 4 spoonfuls. Eventually cleared thought. Pt informed nurse " I am going to ". When asked why he feels that way he stated he didn't know. VSS. Lungs clear. Has been awake and alert. Resp deep and unlabored.
[2020-06-29 15:57] VITALS: BP 133/84
[2020-06-29] MEDS: SUCRALFATE 1 GM TABLET. PO SCH (20:10)
[2020-06-29] MEDS: PRAZOSIN 1 MG CAPSULE. PO SCH (20:11)
[2020-06-29] MEDS: FENOFIBRATE NANOCRYSTALLIZED 145 MG TABLET PO SCH (20:11)
[2020-06-29] MEDS: ATORVASTATIN CALCIUM 10 MG TABLET. PO SCH (20:11)
[2020-06-29] MEDS: MIRABEGRON 25 MG TAB.ER.24H PO SCH (20:11)
--- NOTE | 2020-06-29 21:07 | PDOC ---
Exam Note: Chad Note: Please also refer to the separate dictated note~for this date of service dictated separately.~Patient seen individually. Discussed the patient with Nursing staff reviewed the chart.~Reviewed interim history and current functioning. Reviewed vital signs,~Labs/ Radiology~and current medications noted below. Continue current treatment with the changes noted in the dictated addendum note Assessment: Vital Signs/I&O: Vital Signs Date Time Temp Pulse Resp B/P (MAP) Pulse Ox O2 Delivery O2 Flow Rate FiO2 06/29/20 20:11 95 133/84 06/29/20 15:57 97.1 18 97 06/29/20 01:38 Room Air I & O 06/28/20 06/28/20 06/29/20 15:00 23:00 07:00 Intake Total 220 ml 1000 ml Balance 220 ml 1000 ml Labs: Laboratory Tests Test 06/29/20 08:30 White Blood Count 9.4 x10^3/uL (4.0-11.0) Red Blood Count 4.56 x10^6/uL (4.30-5.70) Hemoglobin 13.2 g/dL (13.0-17.5) Hematocrit 40.7 % (39.0-53.0) Mean Corpuscular Volume 89 fL (79-100) Mean Corpuscular Hemoglobin 29 pg (25-35) Mean Corpuscular Hemoglobin Concent 32 g/dL (31-37) Red Cell Distribution Width 14.7 % (11.5-14.5) H Platelet Count 280 x10^3/uL (140-400) Neutrophils (%) (Auto) 72 % (31-73) Lymphocytes (%) (Auto) 17 % (24-48) L Monocytes (%) (Auto) 10 % (0-9) H Eosinophils (%) (Auto) 1 % (0-3) Basophils (%) (Auto) 0 % (0-3) Neutrophils # (Auto) 6.8 x10^3uL (1.8-7.7) Lymphocytes # (Auto) 1.6 x10^3/uL (1.0-4.8) Monocytes # (Auto) 0.9 x10^3/uL (0.0-1.1) Eosinophils # (Auto) 0.1 x10^3/uL (0.0-0.7) Basophils # (Auto) 0.0 x10^3/uL (0.0-0.2) Sodium Level 145 mmol/L (136-145) Potassium Level 3.6 mmol/L (3.5-5.1) Chloride Level 110 mmol/L (98-107) H Carbon Dioxide Level 23 mmol/L (21-32) Anion Gap 12 (6-14) Blood Urea Nitrogen 17 mg/dL (8-26) Creatinine 0.7 mg/dL (0.7-1.3) Estimated GFR (Cockcroft-Gault) 116.2 BUN/Creatinine Ratio 24 (6-20) H Glucose Level 114 mg/dL (70-99) H Calcium Level 8.2 mg/dL (8.5-10.1) L Total Bilirubin 0.2 mg/dL (0.2-1.0) Aspartate Amino Transferase (AST) 53 U/L (15-37) H Alanine Aminotransferase (ALT) 36 U/L (16-63) Alkaline Phosphatase 77 U/L (46-116) Ammonia 20 mcmol/L (11-34) Creatine Kinase 46 U/L (39-308) Total Protein 7.4 g/dL (6.4-8.2) Albumin 2.9 g/dL (3.4-5.0) L Albumin/Globulin Ratio 0.6 (1.0-1.7) L Current Medications: Meds: Laboratory Tests Test 06/29/20 08:30 White Blood Count 9.4 x10^3/uL Red Blood Count 4.56 x10^6/uL Hemoglobin 13.2 g/dL Hematocrit 40.7 % Mean Corpuscular Volume 89 fL Mean Corpuscular Hemoglobin 29 pg Mean Corpuscular Hemoglobin Concent 32 g/dL Red Cell Distribution Width 14.7 % Platelet Count 280 x10^3/uL Neutrophils (%) (Auto) 72 % Lymphocytes (%) (Auto) 17 % Monocytes (%) (Auto) 10 % Eosinophils (%) (Auto) 1 % Basophils (%) (Auto) 0 % Neutrophils # (Auto) 6.8 x10^3uL Lymphocytes # (Auto) 1.6 x10^3/uL Monocytes # (Auto) 0.9 x10^3/uL Eosinophils # (Auto) 0.1 x10^3/uL Basophils # (Auto) 0.0 x10^3/uL Sodium Level 145 mmol/L Potassium Level 3.6 mmol/L Chloride Level 110 mmol/L Carbon Dioxide Level 23 mmol/L Anion Gap 12 Blood Urea Nitrogen 17 mg/dL Creatinine 0.7 mg/dL Estimated GFR (Cockcroft-Gault) 116.2 BUN/Creatinine Ratio 24 Glucose Level 114 mg/dL Calcium Level 8.2 mg/dL Total Bilirubin 0.2 mg/dL Aspartate Amino Transf (AST/SGOT) 53 U/L Alanine Aminotransferase (ALT/SGPT) 36 U/L Alkaline Phosphatase 77 U/L Ammonia 20 mcmol/L Creatine Kinase 46 U/L Total Protein 7.4 g/dL Albumin 2.9 g/dL Albumin/Globulin Ratio 0.6 Current Medications Medications (Trade) Dose Ordered Sig/Edenilson Route PRN Reason Start Time Stop Time Status Last Admin Dose Admin Acetaminophen (Tylenol) 500 mg PRN Q4HRS PRN PO PAIN 06/15/20 21:15 06/18/20 14:09 Atorvastatin Calcium (Lipitor) 40 mg QHS PO 06/15/20 22:00 06/26/20 20:12 Clonazepam (KlonoPIN) 0.5 mg BID PO 06/15/20 22:00 06/27/20 18:02 DC 06/27/20 10:56 Fenofibrate (Tricor) 145 mg QHS PO 06/15/20 22:00 06/26/20 20:13 Levetiracetam (Keppra) 500 mg BID PO 06/15/20 22:00 06/28/20 19:00 DC 06/27/20 10:55 Lorazepam (Ativan) 1 mg PRN BID PRN PO ANXIETY / AGITATION 06/15/20 21:15 06/23/20 11:01 Al Hydroxide/Mg Hydroxide (Mylanta Plus Xs) 30 ml PRN AFTMEALHC PRN PO DYSPEPSIA 06/15/20 21:15 06/17/20 18:25 Magnesium Hydroxide (Milk Of Magnesia) 2,400 mg PRN DAILY PRN PO CONSTIPATION 06/15/20 21:15 06/23/20 12:03 Olanzapine (ZyPREXA ZYDIS) 10 mg BID PO 06/15/20 22:00 06/27/20 10:55 Phenytoin Sodium (Dilantin) 100 mg DAILY PO 06/16/20 09:00 06/27/20 18:02 DC 06/27/20 10:56 Prazosin HCl (Minipress) 1 mg QHS PO 06/15/20 22:00 06/26/20 20:13 Quetiapine Fumarate (SEROquel) 50 mg BID94 PO 06/16/20 09:00 06/27/20 18:02 DC 06/27/20 10:55 Sertraline HCl (Zoloft) 50 mg DAILY PO 06/16/20 09:00 06/27/20 10:56 Sucralfate (Carafate) 1 gm HS PO 06/15/20 22:00 06/26/20 20:12 Clozapine (Clozaril) 200 mg DAILY PO 06/16/20 09:00 06/28/20 18:00 DC 06/27/20 10:55 Clozapine (Clozaril) 600 mg QHS PO 06/15/20 22:00 06/28/20 18:00 DC 06/27/20 19:52 Hydroxyzine Pamoate (Vistaril) 25 mg BID PO 06/15/20 22:00 06/22/20 17:59 DC 06/22/20 08:05 Lactulose (Lactulose) 20 gm TID PO 06/16/20 09:00 06/24/20 16:20 DC 06/24/20 08:53 Levothyroxine Sodium (Synthroid) 125 mcg DAILY06 PO 06/16/20 06:00 06/26/20 05:12 Loperamide HCl (Imodium) 2 mg PRN DAILY PRN PO loose stools 06/15/20 22:00 Multi-Ingredient Ointment (Analgesic [place]) 1 dennis PRN QID PRN TP MUSCLE PAIN 06/15/20 22:15 Mirabegron (Myrbetriq) 50 mg QHS PO 06/15/20 22:00 06/26/20 20:13 Multivitamins/ Calcium (Thera-M Plus) 1 tab DAILY PO 06/16/20 09:00 06/26/20 08:47 Pantoprazole Sodium (Protonix) 40 mg DAILYAC PO 06/16/20 07:30 06/27/20 10:56 Phenytoin Sodium (Dilantin) 200 mg HS PO 06/15/20 22:00 06/27/20 18:02 DC 06/26/20 20:12 Non-Formulary Medication (Quetiapine Fumarate (Seroquel Xr)) 600 mg QHS PO 06/16/20 21:00 06/16/20 17:14 DC Non-Formulary Medication (Tiagabine Hcl (Gabitril)) 4 mg TID PO 06/16/20 09:00 06/16/20 11:26 DC Olanzapine (ZyPREXA ZYDIS) 5 mg PRN Q2HR PRN PO PSYCHOSIS 06/16/20 11:30 06/18/20 14:47 Tiagabine HCl (Gabitril) 4 mg TID PO 06/16/20 14:00 06/23/20 16:54 DC 06/23/20 15:04 Quetiapine Fumarate (SEROquel) 600 mg QHS PO 06/16/20 21:00 06/26/20 17:25 DC 06/24/20 19:58 Divalproex Sodium (Depakote Er) 500 mg HS PO 06/16/20 21:00 06/17/20 02:14 DC 06/16/20 20:44 Divalproex Sodium (Depakote Sprinkles) 500 mg QHS PO 06/17/20 21:00 06/19/20 17:09 DC 06/18/20 19:40 Divalproex Sodium (Depakote Sprinkles) 500 mg BID PO 06/19/20 21:00 06/23/20 21:00 DC 06/23/20 21:10 Ondansetron HCl (Zofran Odt) 4 mg PRN Q4HRS PRN PO NAUSEA/VOMITING 06/20/20 21:45 06/26/20 08:05 Docusate Sodium (Colace) 100 mg BID PO 06/23/20 21:00 06/26/20 20:12 Polyethylene Glycol (miraLAX) 17 gm DAILY PO 06/24/20 09:00 06/26/20 08:45 Divalproex Sodium (Depakote Sprinkles) 750 mg BID PO 06/24/20 09:00 06/27/20 10:55 Levofloxacin (Levaquin) 500 mg DAILY06 PO 06/26/20 19:45 06/27/20 10:34 DC 06/26/20 20:11 Levofloxacin (Levaquin) 500 mg Q24H PO 06/27/20 21:00 06/29/20 08:55 DC Lactobacillus Rhamnosus (Culturelle) 1 cap BID PO 06/27/20 21:00 Clonazepam (KlonoPIN) 0.5 mg QHS PO 06/27/20 21:00 06/28/20 07:00 DC Phenytoin Sodium (Dilantin) 100 mg DAILY PO 06/28/20 09:00 06/28/20 19:00 DC Phenytoin Sodium (Dilantin) 200 mg QHS PO 06/27/20 21:00 06/28/20 19:00 DC 06/27/20 19:52 Sodium Chloride 1,000 ml @ 1,000 mls/hr 1X ONCE IV 06/28/20 16:00 06/28/20 16:59 DC 06/28/20 16:00 Fosphenytoin Sodium (Cerebyx) 300 mg HS IV 06/28/20 21:00 06/28/20 20:07 Levetiracetam 500 mg/Sodium Chloride 100 ml @ 400 mls/hr Q12HR IV 06/28/20 21:00 06/29/20 08:32 Levofloxacin/ Dextrose 100 ml @ 100 mls/hr Q24H IV 06/29/20 09:00 06/29/20 09:00 Current Medications Medications (Trade) Dose Ordered Sig/Edenilson Route PRN Reason Start Time Stop Time Status Last Admin Dose Admin Levofloxacin/ Dextrose 100 ml @ 100 mls/hr Q24H IV 06/29/20 09:00 06/29/20 09:00 I have reviewed the current psychotropics carefully including drug interactions. Risk benefit ratio favors no change other than as noted in my dictated progress note. Diagnosis: Problems: (1) Anxiety disorder, unspecified (2) Bipolar disorder, curr episode mixed, severe, with psychotic features (3) Mild intellectual disability (4) Dementia in Alzheimer's disease with delusions (5) Impulse control disorder (6) Schizoaffective disorder, chronic condition with acute exacerbation STEVEN AYALA MD Jun 29, 2020 21:07
[2020-06-29] MEDS: FOSPHENYTOIN 100 MG/2 ML VIAL IV SCH (21:22)
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
[2020-06-30] MEDS: LEVOTHYROXINE 125 MCG TABLET PO SCH (02:42)
[2020-06-30 06:08] VITALS: BP 149/84
[2020-06-30] MEDS: PANTOPRAZOLE 40 MG TABLET. PO SCH (07:30)
[2020-06-30] MEDS: DOCUSATE SODIUM 100 MG CAPSULE PO SCH ×2 (08:28→21:00)
[2020-06-30] MEDS: LACTOBACILLUS RHAMNOSUS GG 1 CAPSULE. PO SCH ×2 (08:28→21:00)
[2020-06-30] MEDS: MULTIVITAMIN with MINERAL TABLET. PO SCH (08:29)
[2020-06-30] MEDS: SERTRALINE 50 MG TABLET. PO SCH (08:29)
[2020-06-30] MEDS: POLYETHYLENE GLYCOL 3350 17 GM PACKET. PO SCH (08:29)
[2020-06-30] MEDS: DIVALPROEX 125 MG CAP.SPRINK PO SCH ×2 (08:29→21:00)
--- NOTE | 2020-06-30 08:30 | PDOC ---
Exam Note: Chad Note: This note is a late entry for 06/29/2020 covers elements not covered in my initial note. Subjective: The patient was seen on telehealth rounds in the evening of 06/29/2020 with Luz Elena MCINTOSH, discussed and reviewed the chart. The patient slept 9-1/4 hours previous night. The patient has been medically managed by Dr. Angulo and have been informed maybe transfer to [facility] tomorrow if he continues to remains NPO and needs further IV fluids. He is a significant aspiration risk. We have stopped all his antipsychotics and he remains on IV seizure meds per Dr. Young. Review of Systems: Positive for tiredness, withdrawal. Impaired ambulation. No CV, , pulmonary, eye system symptoms on review. Reliability poor. Mental Status Exam: The patient is oriented to himself and situation. Speech often response is monosyllabic. Abstraction is fair. Computation is impaired. Language function is intact. Mood and affect somewhat withdrawn. No suicidal or homicidal ideation. Laboratory Data: Reviewed. Impression: Schizoaffective disorder, bipolar type. Possible aspiration pneumonia. Anxiety disorder unspecified. Impulse control disorder unspecified. Mild intellectual disability. Plan: Maintain the patient off his antipsychotics, much of which are sedating and also since he has had significant aspiration and we are unable to convert the Clozaril to parenteral administration or the Seroquel. Once he is medically stable, we will reinitiate his psychotropics. Assessment: Vital Signs/I&O: Vital Signs Date Time Temp Pulse Resp B/P (MAP) Pulse Ox O2 Delivery O2 Flow Rate FiO2 06/30/20 06:08 97.9 93 20 149/84 (105) 96 06/29/20 01:38 Room Air I & O 06/29/20 06/29/20 06/30/20 15:00 23:00 07:00 Intake Total 0 ml 0 ml Balance 0 ml 0 ml Current Medications: Meds: Current Medications Medications (Trade) Dose Ordered Sig/Edenilson Route PRN Reason Start Time Stop Time Status Last Admin Dose Admin Acetaminophen (Tylenol) 500 mg PRN Q4HRS PRN PO PAIN 06/15/20 21:15 06/18/20 14:09 Atorvastatin Calcium (Lipitor) 40 mg QHS PO 06/15/20 22:00 06/26/20 20:12 Clonazepam (KlonoPIN) 0.5 mg BID PO 06/15/20 22:00 06/27/20 18:02 DC 06/27/20 10:56 Fenofibrate (Tricor) 145 mg QHS PO 06/15/20 22:00 06/26/20 20:13 Levetiracetam (Keppra) 500 mg BID PO 06/15/20 22:00 06/28/20 19:00 DC 06/27/20 10:55 Lorazepam (Ativan) 1 mg PRN BID PRN PO ANXIETY / AGITATION 06/15/20 21:15 06/23/20 11:01 Al Hydroxide/Mg Hydroxide (Mylanta Plus Xs) 30 ml PRN AFTMEALHC PRN PO DYSPEPSIA 06/15/20 21:15 06/17/20 18:25 Magnesium Hydroxide (Milk Of Magnesia) 2,400 mg PRN DAILY PRN PO CONSTIPATION 06/15/20 21:15 06/23/20 12:03 Olanzapine (ZyPREXA ZYDIS) 10 mg BID PO 06/15/20 22:00 06/27/20 10:55 Phenytoin Sodium (Dilantin) 100 mg DAILY PO 06/16/20 09:00 06/27/20 18:02 DC 06/27/20 10:56 Prazosin HCl (Minipress) 1 mg QHS PO 06/15/20 22:00 06/26/20 20:13 Quetiapine Fumarate (SEROquel) 50 mg BID94 PO 06/16/20 09:00 06/27/20 18:02 DC 06/27/20 10:55 Sertraline HCl (Zoloft) 50 mg DAILY PO 06/16/20 09:00 06/27/20 10:56 Sucralfate (Carafate) 1 gm HS PO 06/15/20 22:00 06/26/20 20:12 Clozapine (Clozaril) 200 mg DAILY PO 06/16/20 09:00 06/28/20 18:00 DC 06/27/20 10:55 Clozapine (Clozaril) 600 mg QHS PO 06/15/20 22:00 06/28/20 18:00 DC 06/27/20 19:52 Hydroxyzine Pamoate (Vistaril) 25 mg BID PO 06/15/20 22:00 06/22/20 17:59 DC 06/22/20 08:05 Lactulose (Lactulose) 20 gm TID PO 06/16/20 09:00 06/24/20 16:20 DC 06/24/20 08:53 Levothyroxine Sodium (Synthroid) 125 mcg DAILY06 PO 06/16/20 06:00 06/26/20 05:12 Loperamide HCl (Imodium) 2 mg PRN DAILY PRN PO loose stools 06/15/20 22:00 Multi-Ingredient Ointment (Analgesic [place]) 1 dennis PRN QID PRN TP MUSCLE PAIN 06/15/20 22:15 Mirabegron (Myrbetriq) 50 mg QHS PO 06/15/20 22:00 06/26/20 20:13 Multivitamins/ Calcium (Thera-M Plus) 1 tab DAILY PO 06/16/20 09:00 06/26/20 08:47 Pantoprazole Sodium (Protonix) 40 mg DAILYAC PO 06/16/20 07:30 06/27/20 10:56 Phenytoin Sodium (Dilantin) 200 mg HS PO 06/15/20 22:00 06/27/20 18:02 DC 06/26/20 20:12 Non-Formulary Medication (Quetiapine Fumarate (Seroquel Xr)) 600 mg QHS PO 06/16/20 21:00 06/16/20 17:14 DC Non-Formulary Medication (Tiagabine Hcl (Gabitril)) 4 mg TID PO 06/16/20 09:00 06/16/20 11:26 DC Olanzapine (ZyPREXA ZYDIS) 5 mg PRN Q2HR PRN PO PSYCHOSIS 06/16/20 11:30 06/18/20 14:47 Tiagabine HCl (Gabitril) 4 mg TID PO 06/16/20 14:00 06/23/20 16:54 DC 06/23/20 15:04 Quetiapine Fumarate (SEROquel) 600 mg QHS PO 06/16/20 21:00 06/26/20 17:25 DC 06/24/20 19:58 Divalproex Sodium (Depakote Er) 500 mg HS PO 06/16/20 21:00 06/17/20 02:14 DC 06/16/20 20:44 Divalproex Sodium (Depakote Sprinkles) 500 mg QHS PO 06/17/20 21:00 06/19/20 17:09 DC 06/18/20 19:40 Divalproex Sodium (Depakote Sprinkles) 500 mg BID PO 06/19/20 21:00 06/23/20 21:00 DC 06/23/20 21:10 Ondansetron HCl (Zofran Odt) 4 mg PRN Q4HRS PRN PO NAUSEA/VOMITING 06/20/20 21:45 06/26/20 08:05 Docusate Sodium (Colace) 100 mg BID PO 06/23/20 21:00 06/26/20 20:12 Polyethylene Glycol (miraLAX) 17 gm DAILY PO 06/24/20 09:00 06/26/20 08:45 Divalproex Sodium (Depakote Sprinkles) 750 mg BID PO 06/24/20 09:00 06/27/20 10:55 Levofloxacin (Levaquin) 500 mg DAILY06 PO 06/26/20 19:45 06/27/20 10:34 DC 06/26/20 20:11 Levofloxacin (Levaquin) 500 mg Q24H PO 06/27/20 21:00 06/29/20 08:55 DC Lactobacillus Rhamnosus (Culturelle) 1 cap BID PO 06/27/20 21:00 Clonazepam (KlonoPIN) 0.5 mg QHS PO 06/27/20 21:00 06/28/20 07:00 DC Phenytoin Sodium (Dilantin) 100 mg DAILY PO 06/28/20 09:00 06/28/20 19:00 DC Phenytoin Sodium (Dilantin) 200 mg QHS PO 06/27/20 21:00 06/28/20 19:00 DC 06/27/20 19:52 Sodium Chloride 1,000 ml @ 1,000 mls/hr 1X ONCE IV 06/28/20 16:00 06/28/20 16:59 DC 06/28/20 16:00 Fosphenytoin Sodium (Cerebyx) 300 mg HS IV 06/28/20 21:00 06/29/20 21:22 Levetiracetam 500 mg/Sodium Chloride 100 ml @ 400 mls/hr Q12HR IV 06/28/20 21:00 06/30/20 08:28 Levofloxacin/ Dextrose 100 ml @ 100 mls/hr Q24H IV 06/29/20 09:00 06/30/20 08:27 Current Medications Medications (Trade) Dose Ordered Sig/Edenilson Route PRN Reason Start Time Stop Time Status Last Admin Dose Admin Levofloxacin/ Dextrose 100 ml @ 100 mls/hr Q24H IV 06/29/20 09:00 06/30/20 08:27 I have reviewed the current psychotropics carefully including drug interactions. Risk benefit ratio favors no change other than as noted in my dictated progress note. Diagnosis: Problems: (1) Anxiety disorder, unspecified (2) Bipolar disorder, curr episode mixed, severe, with psychotic features (3) Mild intellectual disability (4) Dementia in Alzheimer's disease with delusions (5) Impulse control disorder (6) Schizoaffective disorder, chronic condition with acute exacerbation STEVEN AYALA MD Jun 30, 2020 08:30
[2020-06-30 09:45] LABS: BASO # 0.1 x10^3/uL (0.0-0.2); BASO % 1 % (0-3); EOS # 0.1 x10^3/uL (0.0-0.7); EOS % 1 % (0-3); HEMATOCRIT 41.1 % (39.0-53.0); HEMOGLOBIN 13.4 g/dL (13.0-17.5); LYMPH # 1.3 x10^3/uL (1.0-4.8); LYMPH % 15 % (24-48); MEAN CORPUSCULAR HEMOGLOBIN 29 pg (25-35); MEAN CORPUSCULAR HGB CONC 33 g/dL (31-37); MEAN CORPUSCULAR VOLUME 90 fL (79-100); MONO # 0.7 x10^3/uL (0.0-1.1); MONO % 9 % (0-9); NEUT # 6.2 x10^3uL (1.8-7.7); NEUT % 74 % (31-73); PLATELET COUNT 298 x10^3/uL (140-400); RED BLOOD COUNT 4.57 x10^6/uL (4.30-5.70); RED CELL DISTRIBUTION WIDTH 14.4 % (11.5-14.5); WHITE BLOOD COUNT 8.4 x10^3/uL (4.0-11.0)
[2020-06-30 16:12] VITALS: BP 149/84
--- NOTE | 2020-06-30 16:58 | NUR ---
Pt has rested quietly in bed. Stated in am that he thought he was going to but stated later in afternoon he felt a little better. Continues to get IV meds. Took 120 cc of thickened water by spoonfuls. Started choking at end but soon clear liquid. WBC better today. Lungs have remained clear. pt AF. Incontinent of urine.
--- NOTE | 2020-06-30 17:18 | NUR ---
Updated brother Carlos on pt condition. Pt spoke with brother on phone for a few minutes. Pt was alert. Will see if speech can see pt tomorrow and re-evaluate swallow.
[2020-06-30] MEDS: ATORVASTATIN CALCIUM 10 MG TABLET. PO SCH (21:00)
[2020-06-30] MEDS: SUCRALFATE 1 GM TABLET. PO SCH (21:00)
[2020-06-30] MEDS: PRAZOSIN 1 MG CAPSULE. PO SCH (21:00)
[2020-06-30] MEDS: FOSPHENYTOIN 100 MG/2 ML VIAL IV SCH (21:00)
[2020-06-30] MEDS: MIRABEGRON 25 MG TAB.ER.24H PO SCH (21:00)
[2020-06-30] MEDS: FENOFIBRATE NANOCRYSTALLIZED 145 MG TABLET PO SCH (21:00)
--- NOTE | 2020-06-30 21:00 | NUR ---
Pt in bed and is drowsy but pleasant and cooperative. He moves all extremities with good strength. He responds appropriately to questions and is confused saying he is at [employer]. He has had no behaviors tonight.
--- NOTE | 2020-06-30 21:07 | PDOC ---
Exam Note: Chad Note: Please also refer to the separate dictated note~for this date of service dictated separately.~Patient seen individually. Discussed the patient with Nursing staff reviewed the chart.~Reviewed interim history and current functioning. Reviewed vital signs,~Labs/ Radiology~and current medications noted below. Continue current treatment with the changes noted in the dictated addendum note Assessment: Vital Signs/I&O: Vital Signs Date Time Temp Pulse Resp B/P (MAP) Pulse Ox O2 Delivery O2 Flow Rate FiO2 06/30/20 16:12 97.8 87 20 149/84 (105) 97 Room Air I & O 06/29/20 06/29/20 06/30/20 15:00 23:00 07:00 Intake Total 0 ml 0 ml Balance 0 ml 0 ml Labs: Laboratory Tests Test 06/30/20 08:55 White Blood Count 8.4 x10^3/uL (4.0-11.0) Red Blood Count 4.57 x10^6/uL (4.30-5.70) Hemoglobin 13.4 g/dL (13.0-17.5) Hematocrit 41.1 % (39.0-53.0) Mean Corpuscular Volume 90 fL (79-100) Mean Corpuscular Hemoglobin 29 pg (25-35) Mean Corpuscular Hemoglobin Concent 33 g/dL (31-37) Red Cell Distribution Width 14.4 % (11.5-14.5) Platelet Count 298 x10^3/uL (140-400) Neutrophils (%) (Auto) 74 % (31-73) H Lymphocytes (%) (Auto) 15 % (24-48) L Monocytes (%) (Auto) 9 % (0-9) Eosinophils (%) (Auto) 1 % (0-3) Basophils (%) (Auto) 1 % (0-3) Neutrophils # (Auto) 6.2 x10^3uL (1.8-7.7) Lymphocytes # (Auto) 1.3 x10^3/uL (1.0-4.8) Monocytes # (Auto) 0.7 x10^3/uL (0.0-1.1) Eosinophils # (Auto) 0.1 x10^3/uL (0.0-0.7) Basophils # (Auto) 0.1 x10^3/uL (0.0-0.2) Current Medications: Meds: Laboratory Tests Test 06/30/20 08:55 White Blood Count 8.4 x10^3/uL Red Blood Count 4.57 x10^6/uL Hemoglobin 13.4 g/dL Hematocrit 41.1 % Mean Corpuscular Volume 90 fL Mean Corpuscular Hemoglobin 29 pg Mean Corpuscular Hemoglobin Concent 33 g/dL Red Cell Distribution Width 14.4 % Platelet Count 298 x10^3/uL Neutrophils (%) (Auto) 74 % Lymphocytes (%) (Auto) 15 % Monocytes (%) (Auto) 9 % Eosinophils (%) (Auto) 1 % Basophils (%) (Auto) 1 % Neutrophils # (Auto) 6.2 x10^3uL Lymphocytes # (Auto) 1.3 x10^3/uL Monocytes # (Auto) 0.7 x10^3/uL Eosinophils # (Auto) 0.1 x10^3/uL Basophils # (Auto) 0.1 x10^3/uL Current Medications Medications (Trade) Dose Ordered Sig/Edenilson Route PRN Reason Start Time Stop Time Status Last Admin Dose Admin Acetaminophen (Tylenol) 500 mg PRN Q4HRS PRN PO PAIN 06/15/20 21:15 06/18/20 14:09 Atorvastatin Calcium (Lipitor) 40 mg QHS PO 06/15/20 22:00 06/26/20 20:12 Clonazepam (KlonoPIN) 0.5 mg BID PO 06/15/20 22:00 06/27/20 18:02 DC 06/27/20 10:56 Fenofibrate (Tricor) 145 mg QHS PO 06/15/20 22:00 06/26/20 20:13 Levetiracetam (Keppra) 500 mg BID PO 06/15/20 22:00 06/28/20 19:00 DC 06/27/20 10:55 Lorazepam (Ativan) 1 mg PRN BID PRN PO ANXIETY / AGITATION 06/15/20 21:15 06/23/20 11:01 Al Hydroxide/Mg Hydroxide (Mylanta Plus Xs) 30 ml PRN AFTMEALHC PRN PO DYSPEPSIA 06/15/20 21:15 06/17/20 18:25 Magnesium Hydroxide (Milk Of Magnesia) 2,400 mg PRN DAILY PRN PO CONSTIPATION 06/15/20 21:15 06/23/20 12:03 Olanzapine (ZyPREXA ZYDIS) 10 mg BID PO 06/15/20 22:00 06/27/20 10:55 Phenytoin Sodium (Dilantin) 100 mg DAILY PO 06/16/20 09:00 06/27/20 18:02 DC 06/27/20 10:56 Prazosin HCl (Minipress) 1 mg QHS PO 06/15/20 22:00 06/26/20 20:13 Quetiapine Fumarate (SEROquel) 50 mg BID94 PO 06/16/20 09:00 06/27/20 18:02 DC 06/27/20 10:55 Sertraline HCl (Zoloft) 50 mg DAILY PO 06/16/20 09:00 06/27/20 10:56 Sucralfate (Carafate) 1 gm HS PO 06/15/20 22:00 06/26/20 20:12 Clozapine (Clozaril) 200 mg DAILY PO 06/16/20 09:00 06/28/20 18:00 DC 06/27/20 10:55 Clozapine (Clozaril) 600 mg QHS PO 06/15/20 22:00 06/28/20 18:00 DC 06/27/20 19:52 Hydroxyzine Pamoate (Vistaril) 25 mg BID PO 06/15/20 22:00 06/22/20 17:59 DC 06/22/20 08:05 Lactulose (Lactulose) 20 gm TID PO 06/16/20 09:00 06/24/20 16:20 DC 06/24/20 08:53 Levothyroxine Sodium (Synthroid) 125 mcg DAILY06 PO 06/16/20 06:00 06/26/20 05:12 Loperamide HCl (Imodium) 2 mg PRN DAILY PRN PO loose stools 06/15/20 22:00 Multi-Ingredient Ointment (Analgesic [place]) 1 dennis PRN QID PRN TP MUSCLE PAIN 06/15/20 22:15 Mirabegron (Myrbetriq) 50 mg QHS PO 06/15/20 22:00 06/26/20 20:13 Multivitamins/ Calcium (Thera-M Plus) 1 tab DAILY PO 06/16/20 09:00 06/26/20 08:47 Pantoprazole Sodium (Protonix) 40 mg DAILYAC PO 06/16/20 07:30 06/27/20 10:56 Phenytoin Sodium (Dilantin) 200 mg HS PO 06/15/20 22:00 06/27/20 18:02 DC 06/26/20 20:12 Non-Formulary Medication (Quetiapine Fumarate (Seroquel Xr)) 600 mg QHS PO 06/16/20 21:00 06/16/20 17:14 DC Non-Formulary Medication (Tiagabine Hcl (Gabitril)) 4 mg TID PO 06/16/20 09:00 06/16/20 11:26 DC Olanzapine (ZyPREXA ZYDIS) 5 mg PRN Q2HR PRN PO PSYCHOSIS 06/16/20 11:30 06/18/20 14:47 Tiagabine HCl (Gabitril) 4 mg TID PO 06/16/20 14:00 06/23/20 16:54 DC 06/23/20 15:04 Quetiapine Fumarate (SEROquel) 600 mg QHS PO 06/16/20 21:00 06/26/20 17:25 DC 06/24/20 19:58 Divalproex Sodium (Depakote Er) 500 mg HS PO 06/16/20 21:00 06/17/20 02:14 DC 06/16/20 20:44 Divalproex Sodium (Depakote Sprinkles) 500 mg QHS PO 06/17/20 21:00 06/19/20 17:09 DC 06/18/20 19:40 Divalproex Sodium (Depakote Sprinkles) 500 mg BID PO 06/19/20 21:00 06/23/20 21:00 DC 06/23/20 21:10 Ondansetron HCl (Zofran Odt) 4 mg PRN Q4HRS PRN PO NAUSEA/VOMITING 06/20/20 21:45 06/26/20 08:05 Docusate Sodium (Colace) 100 mg BID PO 06/23/20 21:00 06/26/20 20:12 Polyethylene Glycol (miraLAX) 17 gm DAILY PO 06/24/20 09:00 06/26/20 08:45 Divalproex Sodium (Depakote Sprinkles) 750 mg BID PO 06/24/20 09:00 06/27/20 10:55 Levofloxacin (Levaquin) 500 mg DAILY06 PO 06/26/20 19:45 06/27/20 10:34 DC 06/26/20 20:11 Levofloxacin (Levaquin) 500 mg Q24H PO 06/27/20 21:00 06/29/20 08:55 DC Lactobacillus Rhamnosus (Culturelle) 1 cap BID PO 06/27/20 21:00 Clonazepam (KlonoPIN) 0.5 mg QHS PO 06/27/20 21:00 06/28/20 07:00 DC Phenytoin Sodium (Dilantin) 100 mg DAILY PO 06/28/20 09:00 06/28/20 19:00 DC Phenytoin Sodium (Dilantin) 200 mg QHS PO 06/27/20 21:00 06/28/20 19:00 DC 06/27/20 19:52 Sodium Chloride 1,000 ml @ 1,000 mls/hr 1X ONCE IV 06/28/20 16:00 06/28/20 16:59 DC 06/28/20 16:00 Fosphenytoin Sodium (Cerebyx) 300 mg HS IV 06/28/20 21:00 06/29/20 21:22 Levetiracetam 500 mg/Sodium Chloride 100 ml @ 400 mls/hr Q12HR IV 06/28/20 21:00 06/30/20 08:28 Levofloxacin/ Dextrose 100 ml @ 100 mls/hr Q24H IV 06/29/20 09:00 06/30/20 08:27 I have reviewed the current psychotropics carefully including drug interactions. Risk benefit ratio favors no change other than as noted in my dictated progress note. Diagnosis: Problems: (1) Anxiety disorder, unspecified (2) Bipolar disorder, curr episode mixed, severe, with psychotic features (3) Mild intellectual disability (4) Dementia in Alzheimer's disease with delusions (5) Impulse control disorder (6) Schizoaffective disorder, chronic condition with acute exacerbation STEVEN AYALA MD Jun 30, 2020 21:07
--- NOTE | 2020-07-01 01:04 | NUR ---
Pt coughing some and requested oral suction. Small amount of dark phlegm suctioned out. Pt instructed on deep breathing and coughing and struggled to follow instructions to produce a forceful cough. HOB elevated to 40 degrees
[2020-07-01] MEDS: LEVOTHYROXINE 125 MCG TABLET PO SCH (05:46)
[2020-07-01 06:33] VITALS: BP 151/79
[2020-07-01] MEDS: PANTOPRAZOLE 40 MG TABLET. PO SCH (07:30)
[2020-07-01] MEDS: LACTOBACILLUS RHAMNOSUS GG 1 CAPSULE. PO SCH ×2 (09:00→21:00)
[2020-07-01] MEDS: POLYETHYLENE GLYCOL 3350 17 GM PACKET. PO SCH (09:00)
[2020-07-01] MEDS: DIVALPROEX 125 MG CAP.SPRINK PO SCH ×2 (09:00→21:00)
[2020-07-01] MEDS: DOCUSATE SODIUM 100 MG CAPSULE PO SCH ×2 (09:00→21:00)
[2020-07-01] MEDS: SERTRALINE 50 MG TABLET. PO SCH (09:00)
[2020-07-01] MEDS: MULTIVITAMIN with MINERAL TABLET. PO SCH (09:00)
--- NOTE | 2020-07-01 10:42 | NUR ---
Dr. Angulo called and requested staff to feed pt thickened liquids with a staw and if he passes then we can feed him lunch.
--- NOTE | 2020-07-01 11:30 | NUR ---
Called and left a with inpatient speech at [facility] regarding order for bedside swallow study from 06/30/2020.
--- NOTE | 2020-07-01 11:34 | NUR ---
WEEKLY ACTIVITY THERAPY NOTE Date of Admission: 06/15/20 Date of AT Assessment: 06/18/20 Precipitating behaviors that initiated intake and admission: labile mood, crying, throwing things, yelling, agitated Goal aimed:to increase stimulation and socialization Initial Goal: Pt. will participate in at least five individual or Activity Therapy group sessions before discharge. Weekly progress towards goal: 05/28 (06/21-SD mayra hays) Group participation level: zero Weekly highlights: Behaviors observed: sleeping/ in bed often this week, Wednesday in bed with IV lines in place- stated to ORTHOPAEDIC PHYSICIAN ASSISTANT he felt like he was going to Plan: no change to goal Beneficial adaptations:
--- NOTE | 2020-07-01 12:26 | NUR ---
CYTOMETRY TECHNOLOGIST reported a large bump above IV site. When nurse assessed IV appeared infiltrated and pt c/o pain. IV d/c'd. Nursing Account Services Specialist paged to restart IV. Collaborated with pharmacy regarding retiming levaquin.
--- NOTE | 2020-07-01 14:22 | TX PLAN ---
Interdisciplinary Tx Plan Admission Information Jun 15, 2020 at 15:45 Legal Status (on Admission): Voluntary DPOA/Guardian Name: Carlos Groves Contact Other Contact Name: [facility] Other Contact Verified Code Status: Full Code Allergies: Coded Allergies: haloperidol (Verified Allergy, Intermediate, 07/31/17) ketchup (Verified Allergy, Intermediate, 07/31/17) Diagnoses Primary Diagnosis: Schizoaffective D/O, Bipolar type with psychotic features Reasons for Admission: Agitated, Angry, Combative, Suspicious/paranoid, Poor impulse control Problem in Patient's Words: He has had a lot of changes and Covid messed up his routine. Additional Admission Comments: According to the intake, pt has labile mood, crying, threw cleanser, cleanser at staff, verbal and physical outbursts, demanding staff, reports his "vagina hurts", throwing belongings, yelling, agitated, his "bad" friends don't leave him alone. Problems Active Problems: labile mood demanding with staff bargaining behaviors Inactive Problems: medication compliant Pt Strengths/Limitations Ability for [place]: Poor Cognitive Functioning/Ability: Poor Communication Skills/Ability: Fair Financial Resources: Fair Insight/Judgement: Poor Intellectual Ability: Poor Physical Health: Fair Social Skills: Poor Stability in Family: Excellent Stability in School/Work: Poor Verbal Skills: Fair Discharge Criteria Discharge Criteria: Adequate arrangements @DC, Improved behavior, Improved mood/thought Preliminary Discharge Plan Preliminary DC Plan: Current Living Arrange. Special Precautions Fall Risk: Low Initial D/C Plan Pt to return to [facility] once stable Identified Discharge Needs: N/A Currently Utilized Resources Currently Utilized Resources/P: Primary Care Physician Psychiatrist Still Tender at facility Identified Problems/Hx/Goals Objectives/Short-Term Goals Short Term Goals: Dec. Aggression, Dec. Outbursts, Medication Stabilization, Promote Coping Skill Short Term Goals in Patient's: N/A Interventions/Frequency Staff Interventions/Frequency&: Psychiatrist to assess pt at least 3x per week for medication management. Social Work to assess pt at least 2x per week to address barriers to care and discharge planning. Nursing to assess behaviors, medication effects and complete 15 minute checks. Encourage group participation in activites (if applicable) or 1:1 engagement based off Activity Dept goals. History Vocational History: Pt was not able to work. Education: Pt graduated high school in 1981 (12th grade). Pt has always attended Special Education classes and was bullied all throughout high school. Community Follow-up Psychiatrist Primary Care Physician Treatment Plan Explained Patient/Mobile Therapist had this treatment plan explained to him/her as indicated by the signature below and has been given the opportunity to ask questions and make suggestions: Date: Patient/Mobile Therapist Signature: Status Update Update Pt is currently NPO as he has been, as of late choking and at times needs to be suctioned as he cannot clear his own secretions. Pt is sleeping roughly 7 hours per night. Pt is currently off all psych meds and appears to be drowsy. Staff have been concerned for multiple days that pt does not appear to look well. And pt himself has reported to staff that he feels like he is dying. Pt is on IV Keppra, Dilantin and Levoquin. Pt family has been notified and it was noted that his brother has prayed over the pt last night. At this time, pt is getting another speech evaluation to see if he needs more than what has been noted. SW will continue to update his placement at [facility] and pt brother. PARISH ARMSTRONG Jul 01, 2020 14:22
[2020-07-01 15:20] VITALS: BP 153/72
--- NOTE | 2020-07-01 16:28 | NUR ---
No returned call from speech. Nurse gave pt 1 teaspoon of honey thick water. With liquid in his mouth, pt stated "It's not working." pt began to cough continuously and needed to be suctioned. Pt stated he cannot swallow. Will continue with NPO diet
--- NOTE | 2020-07-01 16:36 | NUR ---
Dr. Angulo informed of pt coughing on honey thick fluids. No new orders at this time.
--- NOTE | 2020-07-01 20:02 | RAD ---
Exam: CT head INDICATION: New onset dysphasia TECHNIQUE: Sequential axial images through the head were obtained without the administration of IV co ntrast. Comparisons: None FINDINGS: Evaluation mildly limited secondary to patient motion. No focal parenchymal lesion or hemorrhage is identified. There is no midline shift or sulcal effaceme nt. Mild patchy evidence in the periventricular white matter. No acute vascular territory infarction is i dentified. Solomon-white distinction is preserved. The ventricular system is within normal limits without compression hydrocephalus. The basal cisterns are well maintained. The visualized portions of the paranasal sinuses and mastoid air cells are well-pneumatized. No acute fractures. IMPRESSION: Mild small vessel ischemic change, technically age indeterminate without recent prior imaging. Exposure: One or more of the following in the visualized dose reduction techniques were utilized for this examination: 1. Automated exposure control 2. Adjustment of the MA and/or KV according to patient size Use of iterative of reconstructive technique Electronically signed by: Jacoby Tinajero MD (07/01/2020 7:59 PM) [facility]
[2020-07-01] MEDS: PRAZOSIN 1 MG CAPSULE. PO SCH (21:00)
[2020-07-01] MEDS: FENOFIBRATE NANOCRYSTALLIZED 145 MG TABLET PO SCH (21:00)
[2020-07-01] MEDS: SUCRALFATE 1 GM TABLET. PO SCH (21:00)
[2020-07-01] MEDS: MIRABEGRON 25 MG TAB.ER.24H PO SCH (21:00)
[2020-07-01] MEDS: ATORVASTATIN CALCIUM 10 MG TABLET. PO SCH (21:00)
--- NOTE | 2020-07-01 21:17 | PDOC ---
Exam Note: Chad Note: This note is a late entry for 06/30/2020 covers elements not covered in my initial note. Subjective: The patient was seen on telehealth rounds in the evening of 06/30/2020 with Luz Elena MCINTOSH, discussed and reviewed the chart. The patient slept 6 hours previous night. The patient reportedly told the staff he is going to . He did drink a glass of water with nursing assistance and then was aspirating after that. WBCs have improved from 13 to 9. Review of Systems: Impaired ambulation. Complains of tiredness. No CV, , pulmonary, eye system symptoms on review. Mental Status Exam: The patient is oriented to himself and situation. He knew he was in the hospital, unaware of the name of the hospital, thought the year was 1987. Abstraction is fair. Computation is impaired. Language function is intact. Attention span is short. Mood and affect withdrawn. Laboratory Data: Reviewed. Impression: Schizoaffective disorder, bipolar type. Possible aspiration pneumonia. Anxiety disorder unspecified. Impulse control disorder unspecified. Mild intellectual disability. Plan: Continue current psychotropics. We have stopped his atypical antipsychotics and his Klonopin and we will adjust once he is medically stable. Assessment: Vital Signs/I&O: Vital Signs Date Time Temp Pulse Resp B/P (MAP) Pulse Ox O2 Delivery O2 Flow Rate FiO2 07/01/20 15:20 97.6 88 16 153/72 (99) 96 07/01/20 06:33 Room Air I & O 06/30/20 06/30/20 07/01/20 15:00 23:00 07:00 Intake Total 600 ml 120 ml 550 ml Balance 600 ml 120 ml 550 ml Current Medications: Meds: Current Medications Medications (Trade) Dose Ordered Sig/Edenilson Route PRN Reason Start Time Stop Time Status Last Admin Dose Admin Acetaminophen (Tylenol) 500 mg PRN Q4HRS PRN PO PAIN 06/15/20 21:15 06/18/20 14:09 Atorvastatin Calcium (Lipitor) 40 mg QHS PO 06/15/20 22:00 06/26/20 20:12 Clonazepam (KlonoPIN) 0.5 mg BID PO 06/15/20 22:00 06/27/20 18:02 DC 06/27/20 10:56 Fenofibrate (Tricor) 145 mg QHS PO 06/15/20 22:00 06/26/20 20:13 Levetiracetam (Keppra) 500 mg BID PO 06/15/20 22:00 06/28/20 19:00 DC 06/27/20 10:55 Lorazepam (Ativan) 1 mg PRN BID PRN PO ANXIETY / AGITATION 06/15/20 21:15 06/23/20 11:01 Al Hydroxide/Mg Hydroxide (Mylanta Plus Xs) 30 ml PRN AFTMEALHC PRN PO DYSPEPSIA 06/15/20 21:15 06/17/20 18:25 Magnesium Hydroxide (Milk Of Magnesia) 2,400 mg PRN DAILY PRN PO CONSTIPATION 06/15/20 21:15 06/23/20 12:03 Olanzapine (ZyPREXA ZYDIS) 10 mg BID PO 06/15/20 22:00 06/27/20 10:55 Phenytoin Sodium (Dilantin) 100 mg DAILY PO 06/16/20 09:00 06/27/20 18:02 DC 06/27/20 10:56 Prazosin HCl (Minipress) 1 mg QHS PO 06/15/20 22:00 06/26/20 20:13 Quetiapine Fumarate (SEROquel) 50 mg BID94 PO 06/16/20 09:00 06/27/20 18:02 DC 06/27/20 10:55 Sertraline HCl (Zoloft) 50 mg DAILY PO 06/16/20 09:00 06/27/20 10:56 Sucralfate (Carafate) 1 gm HS PO 06/15/20 22:00 06/26/20 20:12 Clozapine (Clozaril) 200 mg DAILY PO 06/16/20 09:00 06/28/20 18:00 DC 06/27/20 10:55 Clozapine (Clozaril) 600 mg QHS PO 06/15/20 22:00 06/28/20 18:00 DC 06/27/20 19:52 Hydroxyzine Pamoate (Vistaril) 25 mg BID PO 06/15/20 22:00 06/22/20 17:59 DC 06/22/20 08:05 Lactulose (Lactulose) 20 gm TID PO 06/16/20 09:00 06/24/20 16:20 DC 06/24/20 08:53 Levothyroxine Sodium (Synthroid) 125 mcg DAILY06 PO 06/16/20 06:00 06/26/20 05:12 Loperamide HCl (Imodium) 2 mg PRN DAILY PRN PO loose stools 06/15/20 22:00 Multi-Ingredient Ointment (Analgesic Matador) 1 dennis PRN QID PRN TP MUSCLE PAIN 06/15/20 22:15 Mirabegron (Myrbetriq) 50 mg QHS PO 06/15/20 22:00 06/26/20 20:13 Multivitamins/ Calcium (Thera-M Plus) 1 tab DAILY PO 06/16/20 09:00 06/26/20 08:47 Pantoprazole Sodium (Protonix) 40 mg DAILYAC PO 06/16/20 07:30 06/27/20 10:56 Phenytoin Sodium (Dilantin) 200 mg HS PO 06/15/20 22:00 06/27/20 18:02 DC 06/26/20 20:12 Non-Formulary Medication (Quetiapine Fumarate (Seroquel Xr)) 600 mg QHS PO 06/16/20 21:00 06/16/20 17:14 DC Non-Formulary Medication (Tiagabine Hcl (Gabitril)) 4 mg TID PO 06/16/20 09:00 06/16/20 11:26 DC Olanzapine (ZyPREXA ZYDIS) 5 mg PRN Q2HR PRN PO PSYCHOSIS 06/16/20 11:30 06/18/20 14:47 Tiagabine HCl (Gabitril) 4 mg TID PO 06/16/20 14:00 06/23/20 16:54 DC 06/23/20 15:04 Quetiapine Fumarate (SEROquel) 600 mg QHS PO 06/16/20 21:00 06/26/20 17:25 DC 06/24/20 19:58 Divalproex Sodium (Depakote Er) 500 mg HS PO 06/16/20 21:00 06/17/20 02:14 DC 06/16/20 20:44 Divalproex Sodium (Depakote Sprinkles) 500 mg QHS PO 06/17/20 21:00 06/19/20 17:09 DC 06/18/20 19:40 Divalproex Sodium (Depakote Sprinkles) 500 mg BID PO 06/19/20 21:00 06/23/20 21:00 DC 06/23/20 21:10 Ondansetron HCl (Zofran Odt) 4 mg PRN Q4HRS PRN PO NAUSEA/VOMITING 06/20/20 21:45 06/26/20 08:05 Docusate Sodium (Colace) 100 mg BID PO 06/23/20 21:00 06/26/20 20:12 Polyethylene Glycol (miraLAX) 17 gm DAILY PO 06/24/20 09:00 06/26/20 08:45 Divalproex Sodium (Depakote Sprinkles) 750 mg BID PO 06/24/20 09:00 06/27/20 10:55 Levofloxacin (Levaquin) 500 mg DAILY06 PO 06/26/20 19:45 06/27/20 10:34 DC 06/26/20 20:11 Levofloxacin (Levaquin) 500 mg Q24H PO 06/27/20 21:00 06/29/20 08:55 DC Lactobacillus Rhamnosus (Culturelle) 1 cap BID PO 06/27/20 21:00 Clonazepam (KlonoPIN) 0.5 mg QHS PO 06/27/20 21:00 06/28/20 07:00 DC Phenytoin Sodium (Dilantin) 100 mg DAILY PO 06/28/20 09:00 06/28/20 19:00 DC Phenytoin Sodium (Dilantin) 200 mg QHS PO 06/27/20 21:00 06/28/20 19:00 DC 06/27/20 19:52 Sodium Chloride 1,000 ml @ 1,000 mls/hr 1X ONCE IV 06/28/20 16:00 06/28/20 16:59 DC 06/28/20 16:00 Fosphenytoin Sodium (Cerebyx) 300 mg HS IV 06/28/20 21:00 06/30/20 21:00 Levetiracetam 500 mg/Sodium Chloride 100 ml @ 400 mls/hr Q12HR IV 06/28/20 21:00 07/01/20 11:08 Levofloxacin/ Dextrose 100 ml @ 100 mls/hr Q24H IV 06/29/20 09:00 07/01/20 13:02 DC 07/01/20 12:47 Levofloxacin/ Dextrose 100 ml @ 100 mls/hr Q24H IV 07/02/20 13:00 I have reviewed the current psychotropics carefully including drug interactions. Risk benefit ratio favors no change other than as noted in my dictated progress note. Diagnosis: Problems: (1) Aspiration pneumonia (2) Anxiety disorder, unspecified (3) Bipolar disorder, curr episode mixed, severe, with psychotic features (4) Mild intellectual disability (5) Impulse control disorder (6) Schizoaffective disorder, chronic condition with acute exacerbation STEVEN AYALA MD Jul 01, 2020 21:17
[2020-07-01] MEDS: FOSPHENYTOIN 100 MG/2 ML VIAL IV SCH (21:22)
--- NOTE | 2020-07-01 21:36 | PDOC ---
Exam Note: Chad Note: Please also refer to the separate dictated note~for this date of service dictated separately.~Patient seen individually. Discussed the patient with Nursing staff reviewed the chart.~Reviewed interim history and current functioning. Reviewed vital signs,~Labs/ Radiology~and current medications noted below. Continue current treatment with the changes noted in the dictated addendum note Assessment: Vital Signs/I&O: Vital Signs Date Time Temp Pulse Resp B/P (MAP) Pulse Ox O2 Delivery O2 Flow Rate FiO2 07/01/20 15:20 97.6 88 16 153/72 (99) 96 07/01/20 06:33 Room Air I & O 06/30/20 06/30/20 07/01/20 15:00 23:00 07:00 Intake Total 600 ml 120 ml 550 ml Balance 600 ml 120 ml 550 ml Current Medications: I have reviewed the current psychotropics carefully including drug interactions. Risk benefit ratio favors no change other than as noted in my dictated progress note. Diagnosis: Problems: (1) Anxiety disorder, unspecified (2) Bipolar disorder, curr episode mixed, severe, with psychotic features (3) Mild intellectual disability (4) Impulse control disorder (5) Schizoaffective disorder, chronic condition with acute exacerbation (6) Aspiration pneumonia STEVEN AYALA MD Jul 01, 2020 21:36
--- NOTE | 2020-07-02 01:17 | NUR ---
Pt has been pleasant and cooperative tonight. Earlier he went to CT scan in and tolerated it well, he was able to bear full weight transferred self and moved all extremities well. Later on he wanted to hear music and was provided an tablet and he has been listening to music or watching cartoons. He reports feeling "weird" tonight. Due to NPO status PO meds have been held for some time now.
[2020-07-02] MEDS: LEVOTHYROXINE 125 MCG TABLET PO SCH (04:03)
[2020-07-02 06:23] VITALS: BP 143/77
[2020-07-02] MEDS: PANTOPRAZOLE 40 MG TABLET. PO SCH (07:30)
[2020-07-02] MEDS: SERTRALINE 50 MG TABLET. PO SCH (09:00)
[2020-07-02] MEDS: DIVALPROEX 125 MG CAP.SPRINK PO SCH ×2 (09:00→21:00)
[2020-07-02] MEDS: MULTIVITAMIN with MINERAL TABLET. PO SCH (09:00)
[2020-07-02] MEDS: LACTOBACILLUS RHAMNOSUS GG 1 CAPSULE. PO SCH ×2 (09:00→21:00)
[2020-07-02] MEDS: DOCUSATE SODIUM 100 MG CAPSULE PO SCH ×2 (09:00→21:00)
[2020-07-02] MEDS: POLYETHYLENE GLYCOL 3350 17 GM PACKET. PO SCH (09:00)
--- NOTE | 2020-07-02 09:08 | PDOC ---
Exam Note: Chad Note: This note is a late entry for 07/01/2020 covers elements not covered in my initial note. Subjective: The patient was seen face to face in the morning of 07/01/2020 for a treatment team meeting with Joslyn Brady, Kristine Conrad and Roselyn (social professionals), Syeda Monsivais, activity therapy and Griselda MCINTOSH, reviewed the chart. The patient slept 5-1/4 hours previous night. Sleeping average 7 hours. He spends much time in his room. Oral intake has been nil and Dr. Angulo has been following closely. The patient remains on IV Keppra, Levaquin, and fosphenytoin for his seizures. He was unable to also swallow thickened liquids. We will defer to Dr. Angulo but we will go ahead and do a CT head to see if he has had a small CVA accounting for his dysphagia which is significant and cannot be explained by prior psychotropics. He has been talking about that he is going to . Review of Systems: Positive for tiredness, difficulty swallowing. No CV, , pulmonary, eye system symptoms on review. Mental Status Exam: The patient is oriented to himself and situation. Speech moderate latency. Often response is monosyllabic. Abstraction is fair. Computation is impaired. Language function is intact. Mood and affect withdrawn. Laboratory Data: Reviewed. Impression: Schizoaffective disorder, bipolar type. Anxiety disorder uns pecified. Impulse control disorder unspecified. Mild intellectual disability. Dysphagia. Plan: As noted above. We will restart his antipsychotics once he is medically stable. I have carefully evaluated risk-benefit ratio and drug interactions. Assessment: Vital Signs/I&O: Vital Signs Date Time Temp Pulse Resp B/P (MAP) Pulse Ox O2 Delivery O2 Flow Rate FiO2 07/02/20 06:23 97.9 89 20 143/77 (99) 98 07/01/20 06:33 Room Air I & O 07/01/20 07/01/20 07/02/20 15:00 23:00 07:00 Intake Total 240 ml 0 ml 805 ml Balance 240 ml 0 ml 805 ml Current Medications: Meds: Current Medications Medications (Trade) Dose Ordered Sig/Edenilson Route PRN Reason Start Time Stop Time Status Last Admin Dose Admin Acetaminophen (Tylenol) 500 mg PRN Q4HRS PRN PO PAIN 06/15/20 21:15 06/18/20 14:09 Atorvastatin Calcium (Lipitor) 40 mg QHS PO 06/15/20 22:00 06/26/20 20:12 Clonazepam (KlonoPIN) 0.5 mg BID PO 06/15/20 22:00 06/27/20 18:02 DC 06/27/20 10:56 Fenofibrate (Tricor) 145 mg QHS PO 06/15/20 22:00 06/26/20 20:13 Levetiracetam (Keppra) 500 mg BID PO 06/15/20 22:00 06/28/20 19:00 DC 06/27/20 10:55 Lorazepam (Ativan) 1 mg PRN BID PRN PO ANXIETY / AGITATION 06/15/20 21:15 06/23/20 11:01 Al Hydroxide/Mg Hydroxide (Mylanta Plus Xs) 30 ml PRN AFTMEALHC PRN PO DYSPEPSIA 06/15/20 21:15 06/17/20 18:25 Magnesium Hydroxide (Milk Of Magnesia) 2,400 mg PRN DAILY PRN PO CONSTIPATION 06/15/20 21:15 06/23/20 12:03 Olanzapine (ZyPREXA ZYDIS) 10 mg BID PO 06/15/20 22:00 06/27/20 10:55 Phenytoin Sodium (Dilantin) 100 mg DAILY PO 06/16/20 09:00 06/27/20 18:02 DC 06/27/20 10:56 Prazosin HCl (Minipress) 1 mg QHS PO 06/15/20 22:00 06/26/20 20:13 Quetiapine Fumarate (SEROquel) 50 mg BID94 PO 06/16/20 09:00 06/27/20 18:02 DC 06/27/20 10:55 Sertraline HCl (Zoloft) 50 mg DAILY PO 06/16/20 09:00 06/27/20 10:56 Sucralfate (Carafate) 1 gm HS PO 06/15/20 22:00 06/26/20 20:12 Clozapine (Clozaril) 200 mg DAILY PO 06/16/20 09:00 06/28/20 18:00 DC 06/27/20 10:55 Clozapine (Clozaril) 600 mg QHS PO 06/15/20 22:00 06/28/20 18:00 DC 06/27/20 19:52 Hydroxyzine Pamoate (Vistaril) 25 mg BID PO 06/15/20 22:00 06/22/20 17:59 DC 06/22/20 08:05 Lactulose (Lactulose) 20 gm TID PO 06/16/20 09:00 06/24/20 16:20 DC 06/24/20 08:53 Levothyroxine Sodium (Synthroid) 125 mcg DAILY06 PO 06/16/20 06:00 06/26/20 05:12 Loperamide HCl (Imodium) 2 mg PRN DAILY PRN PO loose stools 06/15/20 22:00 Multi-Ingredient Ointment (Analgesic Walker) 1 dennis PRN QID PRN TP MUSCLE PAIN 06/15/20 22:15 Mirabegron (Myrbetriq) 50 mg QHS PO 06/15/20 22:00 06/26/20 20:13 Multivitamins/ Calcium (Thera-M Plus) 1 tab DAILY PO 06/16/20 09:00 06/26/20 08:47 Pantoprazole Sodium (Protonix) 40 mg DAILYAC PO 06/16/20 07:30 06/27/20 10:56 Phenytoin Sodium (Dilantin) 200 mg HS PO 06/15/20 22:00 06/27/20 18:02 DC 06/26/20 20:12 Non-Formulary Medication (Quetiapine Fumarate (Seroquel Xr)) 600 mg QHS PO 06/16/20 21:00 06/16/20 17:14 DC Non-Formulary Medication (Tiagabine Hcl (Gabitril)) 4 mg TID PO 06/16/20 09:00 06/16/20 11:26 DC Olanzapine (ZyPREXA ZYDIS) 5 mg PRN Q2HR PRN PO PSYCHOSIS 06/16/20 11:30 06/18/20 14:47 Tiagabine HCl (Gabitril) 4 mg TID PO 06/16/20 14:00 06/23/20 16:54 DC 06/23/20 15:04 Quetiapine Fumarate (SEROquel) 600 mg QHS PO 06/16/20 21:00 06/26/20 17:25 DC 06/24/20 19:58 Divalproex Sodium (Depakote Er) 500 mg HS PO 06/16/20 21:00 06/17/20 02:14 DC 06/16/20 20:44 Divalproex Sodium (Depakote Sprinkles) 500 mg QHS PO 06/17/20 21:00 06/19/20 17:09 DC 06/18/20 19:40 Divalproex Sodium (Depakote Sprinkles) 500 mg BID PO 06/19/20 21:00 06/23/20 21:00 DC 06/23/20 21:10 Ondansetron HCl (Zofran Odt) 4 mg PRN Q4HRS PRN PO NAUSEA/VOMITING 06/20/20 21:45 06/26/20 08:05 Docusate Sodium (Colace) 100 mg BID PO 06/23/20 21:00 06/26/20 20:12 Polyethylene Glycol (miraLAX) 17 gm DAILY PO 06/24/20 09:00 06/26/20 08:45 Divalproex Sodium (Depakote Sprinkles) 750 mg BID PO 06/24/20 09:00 06/27/20 10:55 Levofloxacin (Levaquin) 500 mg DAILY06 PO 06/26/20 19:45 06/27/20 10:34 DC 06/26/20 20:11 Levofloxacin (Levaquin) 500 mg Q24H PO 06/27/20 21:00 06/29/20 08:55 DC Lactobacillus Rhamnosus (Culturelle) 1 cap BID PO 06/27/20 21:00 Clonazepam (KlonoPIN) 0.5 mg QHS PO 06/27/20 21:00 06/28/20 07:00 DC Phenytoin Sodium (Dilantin) 100 mg DAILY PO 06/28/20 09:00 06/28/20 19:00 DC Phenytoin Sodium (Dilantin) 200 mg QHS PO 06/27/20 21:00 06/28/20 19:00 DC 06/27/20 19:52 Sodium Chloride 1,000 ml @ 1,000 mls/hr 1X ONCE IV 06/28/20 16:00 06/28/20 16:59 DC 06/28/20 16:00 Fosphenytoin Sodium (Cerebyx) 300 mg HS IV 06/28/20 21:00 07/01/20 21:22 Levetiracetam 500 mg/Sodium Chloride 100 ml @ 400 mls/hr Q12HR IV 06/28/20 21:00 07/02/20 08:31 Levofloxacin/ Dextrose 100 ml @ 100 mls/hr Q24H IV 06/29/20 09:00 07/01/20 13:02 DC 07/01/20 12:47 Levofloxacin/ Dextrose 100 ml @ 100 mls/hr Q24H IV 07/02/20 13:00 I have reviewed the current psychotropics carefully including drug interactions. Risk benefit ratio favors no change other than as noted in my dictated progress note. Diagnosis: Problems: (1) Anxiety disorder, unspecified (2) Intellectual disability (3) Bipolar disorder, curr episode mixed, severe, with psychotic features (4) Schizoaffective disorder, chronic condition with acute exacerbation (5) Dysphagia STEVEN AYALA MD Jul 02, 2020 09:07
--- NOTE | 2020-07-02 14:30 | NUR ---
Patient has been restless, repeatedly calling out, and difficult to redirect throughout this shift. Patient states that he does not feel right and repeatedly asks staff to help him and explain why he does not feel right. While administering his afternoon medication, I reiterated several times that hospital staff were trying to help him and get him feeling better by providing the IV medications, patient unable to retain this information. Patient complains of not feeling right and being hungry; he has been NPO for several days at this time. Patient has increased LOC from the last time I observed him on 06/27. Attempted swallow screen at bedside, using pudding, honey thick juice, and applesauce. Patient cooperative and followed simple directions. Sat patient up at 90* in bed and provided with small amount of applesauce, patient able to swallow, then had a few wet sounding coughs. Patient initially states he was able to swallow the applesauce. Attempted honey thick juice, patient reacted with a wet cough after swallowing observed. Attempted pudding, patient complained it was stuck in his mouth. Patient not cooperative with holding mouth open, but on several brief exams, there appeared to be pudding on the soft palate and under his tongue. Patient unable to clear the pudding; suction applied. Will continue patient as NPO at this time. Patient continued to be anxious with repeated calling out and unable to redirect; prn medication provided per eMAR. Will continue to monitor and report to oncoming shift.
[2020-07-02 15:53] VITALS: BP 140/66
[2020-07-02] MEDS: FENOFIBRATE NANOCRYSTALLIZED 145 MG TABLET PO SCH (21:00)
[2020-07-02] MEDS: MIRABEGRON 25 MG TAB.ER.24H PO SCH (21:00)
[2020-07-02] MEDS: SUCRALFATE 1 GM TABLET. PO SCH (21:00)
[2020-07-02] MEDS: ATORVASTATIN CALCIUM 10 MG TABLET. PO SCH (21:00)
[2020-07-02] MEDS: PRAZOSIN 1 MG CAPSULE. PO SCH (21:00)
--- NOTE | 2020-07-02 21:01 | PDOC ---
Exam Note: Chad Note: Please also refer to the separate dictated note~for this date of service dictated separately.~Patient seen individually. Discussed the patient with Nursing staff reviewed the chart.~Reviewed interim history and current functioning. Reviewed vital signs,~Labs/ Radiology~and current medications noted below. Continue current treatment with the changes noted in the dictated addendum note Assessment: Vital Signs/I&O: Vital Signs Date Time Temp Pulse Resp B/P (MAP) Pulse Ox O2 Delivery O2 Flow Rate FiO2 07/02/20 15:53 98.7 92 22 140/66 (90) 94 07/01/20 06:33 Room Air I & O 07/01/20 07/01/20 07/02/20 15:00 23:00 07:00 Intake Total 240 ml 0 ml 805 ml Balance 240 ml 0 ml 805 ml Current Medications: Meds: Current Medications Medications (Trade) Dose Ordered Sig/Edenilson Route PRN Reason Start Time Stop Time Status Last Admin Dose Admin Acetaminophen (Tylenol) 500 mg PRN Q4HRS PRN PO PAIN 06/15/20 21:15 06/18/20 14:09 Atorvastatin Calcium (Lipitor) 40 mg QHS PO 06/15/20 22:00 06/26/20 20:12 Clonazepam (KlonoPIN) 0.5 mg BID PO 06/15/20 22:00 06/27/20 18:02 DC 06/27/20 10:56 Fenofibrate (Tricor) 145 mg QHS PO 06/15/20 22:00 06/26/20 20:13 Levetiracetam (Keppra) 500 mg BID PO 06/15/20 22:00 06/28/20 19:00 DC 06/27/20 10:55 Lorazepam (Ativan) 1 mg PRN BID PRN PO ANXIETY / AGITATION 06/15/20 21:15 06/23/20 11:01 Al Hydroxide/Mg Hydroxide (Mylanta Plus Xs) 30 ml PRN AFTMEALHC PRN PO DYSPEPSIA 06/15/20 21:15 06/17/20 18:25 Magnesium Hydroxide (Milk Of Magnesia) 2,400 mg PRN DAILY PRN PO CONSTIPATION 06/15/20 21:15 06/23/20 12:03 Olanzapine (ZyPREXA ZYDIS) 10 mg BID PO 06/15/20 22:00 2/4/21 10:55 Phenytoin Sodium (Dilantin) 100 mg DAILY PO 06/16/20 09:00 06/27/20 18:02 DC 06/27/20 10:56 Prazosin HCl (Minipress) 1 mg QHS PO 06/15/20 22:00 06/26/20 20:13 Quetiapine Fumarate (SEROquel) 50 mg BID94 PO 06/16/20 09:00 06/27/20 18:02 DC 06/27/20 10:55 Sertraline HCl (Zoloft) 50 mg DAILY PO 06/16/20 09:00 06/27/20 10:56 Sucralfate (Carafate) 1 gm HS PO 06/15/20 22:00 06/26/20 20:12 Clozapine (Clozaril) 200 mg DAILY PO 06/16/20 09:00 06/28/20 18:00 DC 06/27/20 10:55 Clozapine (Clozaril) 600 mg QHS PO 06/15/20 22:00 06/28/20 18:00 DC 06/27/20 19:52 Hydroxyzine Pamoate (Vistaril) 25 mg BID PO 06/15/20 22:00 06/22/20 17:59 DC 06/22/20 08:05 Lactulose (Lactulose) 20 gm TID PO 06/16/20 09:00 06/24/20 16:20 DC 06/24/20 08:53 Levothyroxine Sodium (Synthroid) 125 mcg DAILY06 PO 06/16/20 06:00 06/26/20 05:12 Loperamide HCl (Imodium) 2 mg PRN DAILY PRN PO loose stools 06/15/20 22:00 Multi-Ingredient Ointment (Analgesic [place]) 1 dennis PRN QID PRN TP MUSCLE PAIN 06/15/20 22:15 Mirabegron (Myrbetriq) 50 mg QHS PO 06/15/20 22:00 06/26/20 20:13 Multivitamins/ Calcium (Thera-M Plus) 1 tab DAILY PO 06/16/20 09:00 06/26/20 08:47 Pantoprazole Sodium (Protonix) 40 mg DAILYAC PO 06/16/20 07:30 06/27/20 10:56 Phenytoin Sodium (Dilantin) 200 mg HS PO 06/15/20 22:00 06/27/20 18:02 DC 06/26/20 20:12 Non-Formulary Medication (Quetiapine Fumarate (Seroquel Xr)) 600 mg QHS PO 06/16/20 21:00 06/16/20 17:14 DC Non-Formulary Medication (Tiagabine Hcl (Gabitril)) 4 mg TID PO 06/16/20 09:00 06/16/20 11:26 DC Olanzapine (ZyPREXA ZYDIS) 5 mg PRN Q2HR PRN PO PSYCHOSIS 06/16/20 11:30 07/02/20 14:21 Tiagabine HCl (Gabitril) 4 mg TID PO 06/16/20 14:00 06/23/20 16:54 DC 06/23/20 15:04 Quetiapine Fumarate (SEROquel) 600 mg QHS PO 06/16/20 21:00 06/26/20 17:25 DC 06/24/20 19:58 Divalproex Sodium (Depakote Er) 500 mg HS PO 06/16/20 21:00 06/17/20 02:14 DC 06/16/20 20:44 Divalproex Sodium (Depakote Sprinkles) 500 mg QHS PO 06/17/20 21:00 06/19/20 17:09 DC 06/18/20 19:40 Divalproex Sodium (Depakote Sprinkles) 500 mg BID PO 06/19/20 21:00 06/23/20 21:00 DC 06/23/20 21:10 Ondansetron HCl (Zofran Odt) 4 mg PRN Q4HRS PRN PO NAUSEA/VOMITING 06/20/20 21:45 06/26/20 08:05 Docusate Sodium (Colace) 100 mg BID PO 06/23/20 21:00 06/26/20 20:12 Polyethylene Glycol (miraLAX) 17 gm DAILY PO 06/24/20 09:00 06/26/20 08:45 Divalproex Sodium (Depakote Sprinkles) 750 mg BID PO 06/24/20 09:00 06/27/20 10:55 Levofloxacin (Levaquin) 500 mg DAILY06 PO 06/26/20 19:45 06/27/20 10:34 DC 06/26/20 20:11 Levofloxacin (Levaquin) 500 mg Q24H PO 06/27/20 21:00 06/29/20 08:55 DC Lactobacillus Rhamnosus (Culturelle) 1 cap BID PO 06/27/20 21:00 Clonazepam (KlonoPIN) 0.5 mg QHS PO 06/27/20 21:00 06/28/20 07:00 DC Phenytoin Sodium (Dilantin) 100 mg DAILY PO 06/28/20 09:00 06/28/20 19:00 DC Phenytoin Sodium (Dilantin) 200 mg QHS PO 06/27/20 21:00 06/28/20 19:00 DC 06/27/20 19:52 Sodium Chloride 1,000 ml @ 1,000 mls/hr 1X ONCE IV 06/28/20 16:00 06/28/20 16:59 DC 06/28/20 16:00 Fosphenytoin Sodium (Cerebyx) 300 mg HS IV 06/28/20 21:00 07/01/20 21:22 Levetiracetam 500 mg/Sodium Chloride 100 ml @ 400 mls/hr Q12HR IV 06/28/20 21:00 07/02/20 08:31 Levofloxacin/ Dextrose 100 ml @ 100 mls/hr Q24H IV 06/29/20 09:00 07/01/20 13:02 DC 07/01/20 12:47 Levofloxacin/ Dextrose 100 ml @ 100 mls/hr Q24H IV 07/02/20 13:00 07/02/20 13:56 Current Medications Medications (Trade) Dose Ordered Sig/Edenilson Route PRN Reason Start Time Stop Time Status Last Admin Dose Admin Levofloxacin/ Dextrose 100 ml @ 100 mls/hr Q24H IV 07/02/20 13:00 07/02/20 13:56 I have reviewed the current psychotropics carefully including drug interactions. Risk benefit ratio favors no change other than as noted in my dictated progress note. Diagnosis: Problems: (1) Anxiety disorder, unspecified (2) Bipolar disorder, curr episode mixed, severe, with psychotic features (3) Dysphagia (4) Dementia in Alzheimer's disease with delusions (5) Impulse control disorder (6) Schizoaffective disorder, chronic condition with acute exacerbation (7) Mild intellectual disability STEVEN AYALA MD Jul 02, 2020 21:01
[2020-07-02] MEDS: FOSPHENYTOIN 100 MG/2 ML VIAL IV SCH (21:39)
[2020-07-03] MEDS: LEVOTHYROXINE 125 MCG TABLET PO SCH (00:22)
--- NOTE | 2020-07-03 05:21 | NUR ---
Pt has been sleeping for awhile he is now awake calliong help me repeatedly. Repositioned cleaned up, oral care done, tablet playing music provided and still calling out. PRN Olanzapine given.
[2020-07-03 05:58] LABS: BASO # 0.1 x10^3/uL (0.0-0.2); BASO % 1 % (0-3); EOS # 0.1 x10^3/uL (0.0-0.7); EOS % 1 % (0-3); HEMATOCRIT 46.4 % (39.0-53.0); LYMPH # 1.7 x10^3/uL (1.0-4.8); LYMPH % 17 % (24-48); MEAN CORPUSCULAR HEMOGLOBIN 29 pg (25-35); MEAN CORPUSCULAR HGB CONC 32 g/dL (31-37); MEAN CORPUSCULAR VOLUME 89 fL (79-100); MONO % 10 % (0-9); NEUT # 7.1 x10^3uL (1.8-7.7); NEUT % 70 % (31-73); PLATELET COUNT 340 x10^3/uL (140-400); WHITE BLOOD COUNT 10.1 x10^3/uL (4.0-11.0)
[2020-07-03 06:00] VITALS: BP 154/83
[2020-07-03 06:16] LABS: ALBUMIN/GLOBULIN RATIO 0.6 (1.0-1.7); CALCIUM 8.6 mg/dL (8.5-10.1); CREATININE 0.8 mg/dL (0.7-1.3); GFR 99.6; TOTAL BILIRUBIN 0.3 mg/dL (0.2-1.0); TOTAL PROTEIN 8.1 g/dL (6.4-8.2)
[2020-07-03 06:24] LABS: POTASSIUM 2.9 mmol/L (3.5-5.1)
--- NOTE | 2020-07-03 06:27 | NUR ---
Potassium of 2.[address] Case, see orders.
[2020-07-03] MEDS ORDERED: IV DEXTROSE 5% 1,000 ML IV SCH (06:30)
--- NOTE | 2020-07-03 06:36 | RAD ---
XR CHEST 1V 07/03/2020 6:10 AM INDICATION: Swallowing issues COMPARISON: June 27, 2020 TECHNIQUE: Portable frontal view of the chest is provided. FINDINGS: The cardiomediastinal silhouette is similar in appearance. Mild perihilar interstitial airspace disea se. There are no significant pleural effusions. There is no pulmonary vascular congestion. No pneumothora x. No suspicious osseous abnormality. IMPRESSION: Mild perihilar interstitial airspace disease may be associated with interstitial pneumonitis versus d eveloping interstitial edema. Electronically signed by: Selena Menendez MD (07/03/2020 6:34 AM) DOMONIQUE
[2020-07-03] MEDS ORDERED: POTASSIUM CHLORIDE 40 MEQ in IV DEXTROSE 5% 1,000 ML IV SCH (07:30)
[2020-07-03] MEDS: PANTOPRAZOLE 40 MG TABLET. PO SCH (07:30)
--- NOTE | 2020-07-03 08:42 | PDOC ---
Exam Note: Chad Note: This note is a late entry for 07/02/2020 covers elements not covered in my initial note. Subjective: The patient was seen on telehealth rounds in the evening of 07/02/2020 with Fred MCINTOSH, discussed and reviewed the chart. The patient slept 3-3/[address] head showed some patchy white matter changes, microvascular changes but no CVA or acute changes. He has appeared little more, clearer cognitively, but still confused. He has been anxious, restless, constantly calling out for help, wanting the situation explained, unable to comprehend this. Review of Systems: Ambulation impaired. No CV, , pulmonary, eye, ENT system symptoms on review. Mental Status Exam: The patient is oriented to himself. He was unaware of where he was or the year as I questioned him. Insight and judgment, recent and remote memory, attention and concentration, fund of knowledge is poor consistent with his diagnosis. Laboratory Data: Reviewed. Impression: Schizoaffective disorder, bipolar type. Anxiety disorder unspecified. Impulse control disorder unspecified. Mild intellectual disability. Plan: Continue psychotropics from initial note. We will defer medical management to Dr. Angulo/Dr. Case and he is getting IV fluids. Assessment: Vital Signs/I&O: Vital Signs Date Time Temp Pulse Resp B/P (MAP) Pulse Ox O2 Delivery O2 Flow Rate FiO2 07/03/20 06:00 97.6 81 22 154/83 (106) 98 07/01/20 06:33 Room Air I & O 07/02/20 07/02/20 07/03/20 15:00 23:00 07:00 Intake Total 0 ml 0 ml 1522 ml Balance 0 ml 0 ml 1522 ml Labs: Laboratory Tests Test 07/03/20 05:48 White Blood Count 10.1 x10^3/uL (4.0-11.0) Red Blood Count 5.20 x10^6/uL (4.30-5.70) Hemoglobin 15.0 g/dL (13.0-17.5) Hematocrit 46.4 % (39.0-53.0) Mean Corpuscular Volume 89 fL (79-100) Mean Corpuscular Hemoglobin 29 pg (25-35) Mean Corpuscular Hemoglobin Concent 32 g/dL (31-37) Red Cell Distribution Width 14.0 % (11.5-14.5) Platelet Count 340 x10^3/uL (140-400) Neutrophils (%) (Auto) 70 % (31-73) Lymphocytes (%) (Auto) 17 % (24-48) L Monocytes (%) (Auto) 10 % (0-9) H Eosinophils (%) (Auto) 1 % (0-3) Basophils (%) (Auto) 1 % (0-3) Neutrophils # (Auto) 7.1 x10^3uL (1.8-7.7) Lymphocytes # (Auto) 1.7 x10^3/uL (1.0-4.8) Monocytes # (Auto) 1.0 x10^3/uL (0.0-1.1) Eosinophils # (Auto) 0.1 x10^3/uL (0.0-0.7) Basophils # (Auto) 0.1 x10^3/uL (0.0-0.2) Sodium Level 147 mmol/L (136-145) H Potassium Level 2.9 mmol/L (3.5-5.1) *L Chloride Level 106 mmol/L (98-107) Carbon Dioxide Level 26 mmol/L (21-32) Anion Gap 15 (6-14) H Blood Urea Nitrogen 8 mg/dL (8-26) Creatinine 0.8 mg/dL (0.7-1.3) Estimated GFR (Cockcroft-Gault) 99.6 BUN/Creatinine Ratio 10 (6-20) Glucose Level 102 mg/dL (70-99) H Calcium Level 8.6 mg/dL (8.5-10.1) Total Bilirubin 0.3 mg/dL (0.2-1.0) Aspartate Amino Transferase (AST) 92 U/L (15-37) H Alanine Aminotransferase (ALT) 87 U/L (16-63) H Alkaline Phosphatase 104 U/L (46-116) Total Protein 8.1 g/dL (6.4-8.2) Albumin 3.0 g/dL (3.4-5.0) L Albumin/Globulin Ratio 0.6 (1.0-1.7) L Current Medications: Meds: Laboratory Tests Test 07/03/20 05:48 White Blood Count 10.1 x10^3/uL Red Blood Count 5.20 x10^6/uL Hemoglobin 15.0 g/dL Hematocrit 46.4 % Mean Corpuscular Volume 89 fL Mean Corpuscular Hemoglobin 29 pg Mean Corpuscular Hemoglobin Concent 32 g/dL Red Cell Distribution Width 14.0 % Platelet Count 340 x10^3/uL Neutrophils (%) (Auto) 70 % Lymphocytes (%) (Auto) 17 % Monocytes (%) (Auto) 10 % Eosinophils (%) (Auto) 1 % Basophils (%) (Auto) 1 % Neutrophils # (Auto) 7.1 x10^3uL Lymphocytes # (Auto) 1.7 x10^3/uL Monocytes # (Auto) 1.0 x10^3/uL Eosinophils # (Auto) 0.1 x10^3/uL Basophils # (Auto) 0.1 x10^3/uL Sodium Level 147 mmol/L Potassium Level 2.9 mmol/L Chloride Level 106 mmol/L Carbon Dioxide Level 26 mmol/L Anion Gap 15 Blood Urea Nitrogen 8 mg/dL Creatinine 0.8 mg/dL Estimated GFR (Cockcroft-Gault) 99.6 BUN/Creatinine Ratio 10 Glucose Level 102 mg/dL Calcium Level 8.6 mg/dL Total Bilirubin 0.3 mg/dL Aspartate Amino Transf (AST/SGOT) 92 U/L Alanine Aminotransferase (ALT/SGPT) 87 U/L Alkaline Phosphatase 104 U/L Total Protein 8.1 g/dL Albumin 3.0 g/dL Albumin/Globulin Ratio 0.6 Current Medications Medications (Trade) Dose Ordered Sig/Edenilson Route PRN Reason Start Time Stop Time Status Last Admin Dose Admin Acetaminophen (Tylenol) 500 mg PRN Q4HRS PRN PO PAIN 06/15/20 21:15 06/18/20 14:09 Atorvastatin Calcium (Lipitor) 40 mg QHS PO 06/15/20 22:00 06/26/20 20:12 Clonazepam (KlonoPIN) 0.5 mg BID PO 06/15/20 22:00 06/27/20 18:02 DC 06/27/20 10:56 Fenofibrate (Tricor) 145 mg QHS PO 06/15/20 22:00 06/26/20 20:13 Levetiracetam (Keppra) 500 mg BID PO 06/15/20 22:00 06/28/20 19:00 DC 06/27/20 10:55 Lorazepam (Ativan) 1 mg PRN BID PRN PO ANXIETY / AGITATION 06/15/20 21:15 06/23/20 11:01 Al Hydroxide/Mg Hydroxide (Mylanta Plus Xs) 30 ml PRN AFTMEALHC PRN PO DYSPEPSIA 06/15/20 21:15 06/17/20 18:25 Magnesium Hydroxide (Milk Of Magnesia) 2,400 mg PRN DAILY PRN PO CONSTIPATION 06/15/20 21:15 06/23/20 12:03 Olanzapine (ZyPREXA ZYDIS) 10 mg BID PO 06/15/20 22:00 07/03/20 08:19 Phenytoin Sodium (Dilantin) 100 mg DAILY PO 06/16/20 09:00 06/27/20 18:02 DC 06/27/20 10:56 Prazosin HCl (Minipress) 1 mg QHS PO 06/15/20 22:00 06/26/20 20:13 Quetiapine Fumarate (SEROquel) 50 mg BID94 PO 06/16/20 09:00 06/27/20 18:02 DC 06/27/20 10:55 Sertraline HCl (Zoloft) 50 mg DAILY PO 06/16/20 09:00 06/27/20 10:56 Sucralfate (Carafate) 1 gm HS PO 06/15/20 22:00 06/26/20 20:12 Clozapine (Clozaril) 200 mg DAILY PO 06/16/20 09:00 06/28/20 18:00 DC 06/27/20 10:55 Clozapine (Clozaril) 600 mg QHS PO 06/15/20 22:00 06/28/20 18:00 DC 06/27/20 19:52 Hydroxyzine Pamoate (Vistaril) 25 mg BID PO 06/15/20 22:00 06/22/20 17:59 DC 06/22/20 08:05 Lactulose (Lactulose) 20 gm TID PO 06/16/20 09:00 06/24/20 16:20 DC 06/24/20 08:53 Levothyroxine Sodium (Synthroid) 125 mcg DAILY06 PO 06/16/20 06:00 06/26/20 05:12 Loperamide HCl (Imodium) 2 mg PRN DAILY PRN PO loose stools 06/15/20 22:00 Multi-Ingredient Ointment (Analgesic [place]) 1 dennis PRN QID PRN TP MUSCLE PAIN 06/15/20 22:15 Mirabegron (Myrbetriq) 50 mg QHS PO 06/15/20 22:00 06/26/20 20:13 Multivitamins/ Calcium (Thera-M Plus) 1 tab DAILY PO 06/16/20 09:00 06/26/20 08:47 Pantoprazole Sodium (Protonix) 40 mg DAILYAC PO 06/16/20 07:30 06/27/20 10:56 Phenytoin Sodium (Dilantin) 200 mg HS PO 06/15/20 22:00 06/27/20 18:02 DC 06/26/20 20:12 Non-Formulary Medication (Quetiapine Fumarate (Seroquel Xr)) 600 mg QHS PO 06/16/20 21:00 06/16/20 17:14 DC Non-Formulary Medication (Tiagabine Hcl (Gabitril)) 4 mg TID PO 06/16/20 09:00 06/16/20 11:26 DC Olanzapine (ZyPREXA ZYDIS) 5 mg PRN Q2HR PRN PO PSYCHOSIS 06/16/20 11:30 07/03/20 05:19 Tiagabine HCl (Gabitril) 4 mg TID PO 06/16/20 14:00 06/23/20 16:54 DC 06/23/20 15:04 Quetiapine Fumarate (SEROquel) 600 mg QHS PO 06/16/20 21:00 06/26/20 17:25 DC 06/24/20 19:58 Divalproex Sodium (Depakote Er) 500 mg HS PO 06/16/20 21:00 06/17/20 02:14 DC 06/16/20 20:44 Divalproex Sodium (Depakote Sprinkles) 500 mg QHS PO 06/17/20 21:00 06/19/20 17:09 DC 06/18/20 19:40 Divalproex Sodium (Depakote Sprinkles) 500 mg BID PO 06/19/20 21:00 06/23/20 21:00 DC 06/23/20 21:10 Ondansetron HCl (Zofran Odt) 4 mg PRN Q4HRS PRN PO NAUSEA/VOMITING 06/20/20 21:45 06/26/20 08:05 Docusate Sodium (Colace) 100 mg BID PO 06/23/20 21:00 06/26/20 20:12 Polyethylene Glycol (miraLAX) 17 gm DAILY PO 06/24/20 09:00 06/26/20 08:45 Divalproex Sodium (Depakote Sprinkles) 750 mg BID PO 06/24/20 09:00 06/27/20 10:55 Levofloxacin (Levaquin) 500 mg DAILY06 PO 06/26/20 19:45 06/27/20 10:34 DC 06/26/20 20:11 Levofloxacin (Levaquin) 500 mg Q24H PO 06/27/20 21:00 06/29/20 08:55 DC Lactobacillus Rhamnosus (Culturelle) 1 cap BID PO 06/27/20 21:00 Clonazepam (KlonoPIN) 0.5 mg QHS PO 06/27/20 21:00 06/28/20 07:00 DC Phenytoin Sodium (Dilantin) 100 mg DAILY PO 06/28/20 09:00 06/28/20 19:00 DC Phenytoin Sodium (Dilantin) 200 mg QHS PO 06/27/20 21:00 06/28/20 19:00 DC 06/27/20 19:52 Sodium Chloride 1,000 ml @ 1,000 mls/hr 1X ONCE IV 06/28/20 16:00 06/28/20 16:59 DC 06/28/20 16:00 Fosphenytoin Sodium (Cerebyx) 300 mg HS IV 06/28/20 21:00 07/02/20 21:39 Levetiracetam 500 mg/Sodium Chloride 100 ml @ 400 mls/hr Q12HR IV 06/28/20 21:00 07/03/20 07:39 Levofloxacin/ Dextrose 100 ml @ 100 mls/hr Q24H IV 06/29/20 09:00 07/01/20 13:02 DC 07/01/20 12:47 Levofloxacin/ Dextrose 100 ml @ 100 mls/hr Q24H IV 07/02/20 13:00 07/02/20 13:56 Dextrose 1,000 ml @ 100 mls/hr Q10H IV 07/03/20 06:30 07/03/20 07:18 DC Potassium Chloride 40 meq/ Dextrose 1,020 ml @ 100 mls/hr [id number] IV 07/03/20 07:30 07/03/20 08:19 Current Medications Medications (Trade) Dose Ordered Sig/Edenilson Route PRN Reason Start Time Stop Time Status Last Admin Dose Admin Levofloxacin/ Dextrose 100 ml @ 100 mls/hr Q24H IV 07/02/20 13:00 07/02/20 13:56 Potassium Chloride 40 meq/ Dextrose 1,020 ml @ 100 mls/hr [id number] IV 07/03/20 07:30 07/03/20 08:19 I have reviewed the current psychotropics carefully including drug interactions. Risk benefit ratio favors no change other than as noted in my dictated progress note. Diagnosis: Problems: (1) Mild intellectual disability (2) Anxiety disorder, unspecified (3) Schizoaffective disorder, chronic condition with acute exacerbation (4) Bipolar disorder, curr episode mixed, severe, with psychotic features (5) Impulse control disorder STEVEN AYALA MD Jul 03, 2020 08:42
[2020-07-03] MEDS: DOCUSATE SODIUM 100 MG CAPSULE PO SCH (09:00)
[2020-07-03] MEDS: POLYETHYLENE GLYCOL 3350 17 GM PACKET. PO SCH (09:00)
[2020-07-03] MEDS: MULTIVITAMIN with MINERAL TABLET. PO SCH (09:00)
[2020-07-03] MEDS: SERTRALINE 50 MG TABLET. PO SCH (09:00)
[2020-07-03] MEDS: LACTOBACILLUS RHAMNOSUS GG 1 CAPSULE. PO SCH (09:00)
[2020-07-03] MEDS: DIVALPROEX 125 MG CAP.SPRINK PO SCH (09:00)
--- NOTE | 2020-07-03 09:30 | NUR ---
Patient removed peripheral IV. New PIV inserted in right upper arm, 22g, first attempt successful, scant drainage present under transparent dressing. Patient was restless and repeatedly calling out. IV fluids infusing, will continue to monitor.
[2020-07-03] MEDS ORDERED: KETOROLAC 30 MG/ML VIAL. IVP ONE (10:30)
--- NOTE | 2020-07-03 10:30 | NUR ---
Patient complains of headache. He is repeatedly calling out 'I need help'. When asked what he needs help with, patient states he doesn't understand the situation and that he doesn't feel very well. After questioning the patient, he says his head hurts. called, new order received.
[2020-07-03 16:46] VITALS: BP 146/80
--- NOTE | 2020-07-03 18:38 | PN ---
DATE: 07/03/2020 SUBJECTIVE: The patient is a 55-year-old male patient who apparently was admitted to [facility] on 06/15/2020 transferred from [facility], which is a level 2 psychiatric facility by his primary care physician, psychiatrist, Damián Dee on account of acute exacerbation of schizoaffective disorder, bipolar type with psychotic features within the context of his mild intellectual disability. Apparently, the patient has been increasingly agitated, yelling, screaming, physically aggressive, throwing things, agitated and throwing belongings around the facility. His behaviors have been deemed dangerous, unmanageable, had failed outpatient psychiatric intervention at the [facility] and referred for inpatient psychiatric stabilization. About a week ago, the patient was noted to have dysphagia and in fact, he was seen today by the speech therapist who recommended to keep him n.p.o. as very high risk for aspiration. According to the speech therapy, the patient continued to demonstrate decline in swallow function since evaluation on 06/20/2020 and there was slight improvement noted since reevaluation on 06/27/2019. Currently, demonstrates evidence of aspiration and single ice chip, a small amount of honey thickened liquids via cup n.p.o. remains indicated. Etiology of decline swallow function is unclear. If no progress in the near future may wish to consider goals of care and potential need for long-term oral medication in conjunction with the patient and family. I spoke with the social services manager who contacted his family to decide on either aggressive treatment and placement of a gastrostomy tube and/or considering comfort and hospice care. When I saw him this afternoon, he was resting slightly propped up in bed, in no apparent distress. He does not really answer questions. He still keeps repeating that he wants to solution to the situation. PHYSICAL EXAMINATION: GENERAL: When I examined him, he looked pale, but no jaundice, cyanosis or thyromegaly. No jugular venous distension. No limb edema. VITAL SIGNS: His heart rate was 81, blood pressure was 154/83, temperature was 97.6, respiratory rate 22, and oxygen saturation was 98%. HEAD, EYES, EARS, NOSE AND THROAT: Showed normocephalic, atraumatic. NECK: Supple. HEART: Showed normal first and second heart sounds. No gallop, rub or murmur. CHEST: Clear to auscultation. No crepitation or rhonchi. ABDOMEN: Distended, soft, nontender. No guarding or rigidity. No organomegaly. All hernial orifice intact. Bowel sounds normal. NEUROLOGIC: The patient is awake, alert, but very confused, repeating himself on and on; however, his cranial nerves are intact. He moves extremities without difficulty, though is mostly bedbound. LABORATORY DATA: His most recent lab work as of this morning showed a white cell count of 10,000; hemoglobin 15; hematocrit 46; MCV 89 and platelet count 340,000. His chemistry showed a serum sodium 141, potassium 3.4, chloride 106, bicarbonate 24, anion gap 11, BUN 10, creatinine 0.9, estimated GFR was 87 mL per minute, his glucose 164, calcium was 8.3. His total bilirubin, AST, ALT, alkaline phosphatase were normal. Total protein 7.4, albumin was 3.2. His D-dimer was 0.29 and his coronavirus by PCR was not detectable 3 times. Given his hypokalemia and hypernatremia, I did start him on IV D5W with 40 mEq of potassium chloride at 100 mL per hour. He is also on levofloxacin and he is also on Keppra IV twice a day and fosphenytoin 300 mg IV at bedtime. He is on multiple other medications that might help stabilize his mood could not be given orally lactate Depakote. PLAN: My plan is obviously to contact the family and decide on either aggressive treatment. We can transfer the [facility] to [facility] to consult Gastroenterology for placement of a gastrostomy tube and if there is no doubt the family wanted began obviously consider hospice and end of life care. MONA PIERCE MD DR: ROCIO/garry JOB#: [id number] / [id number]
[2020-07-03] MEDS ORDERED: LEVE100S8 PO (19:19)
[2020-07-03] MEDS ORDERED: OLAN5TAB99 PO (19:20)
[2020-07-03] MEDS ORDERED: [UNRECOGNIZED DRUG - OTHER] IV (19:23)
[2020-07-03] MEDS ORDERED: KCL IV (19:23)
[2020-07-03] MEDS ORDERED: DOCU-109 PO (19:24)
[2020-07-03] MEDS ORDERED: POLY17PO5 PO (19:25)
--- NOTE | 2020-07-03 21:05 | PDOC ---
Exam Note: Chad Note: Please also refer to the separate dictated note~for this date of service dictated separately.~Patient seen individually. Discussed the patient with Nursing staff reviewed the chart.~Reviewed interim history and current functioning. Reviewed vital signs,~Labs/ Radiology~and current medications noted below. Continue current treatment with the changes noted in the dictated addendum note Assessment: Vital Signs/I&O: Vital Signs Date Time Temp Pulse Resp B/P (MAP) Pulse Ox O2 Delivery O2 Flow Rate FiO2 07/03/20 16:46 98.0 95 20 146/80 (102) 98 Room Air I & O 07/02/20 07/02/20 07/03/20 15:00 23:00 07:00 Intake Total 0 ml 0 ml 1522 ml Balance 0 ml 0 ml 1522 ml Labs: Laboratory Tests Test 07/03/20 05:48 White Blood Count 10.1 x10^3/uL (4.0-11.0) Red Blood Count 5.20 x10^6/uL (4.30-5.70) Hemoglobin 15.0 g/dL (13.0-17.5) Hematocrit 46.4 % (39.0-53.0) Mean Corpuscular Volume 89 fL (79-100) Mean Corpuscular Hemoglobin 29 pg (25-35) Mean Corpuscular Hemoglobin Concent 32 g/dL (31-37) Red Cell Distribution Width 14.0 % (11.5-14.5) Platelet Count 340 x10^3/uL (140-400) Neutrophils (%) (Auto) 70 % (31-73) Lymphocytes (%) (Auto) 17 % (24-48) L Monocytes (%) (Auto) 10 % (0-9) H Eosinophils (%) (Auto) 1 % (0-3) Basophils (%) (Auto) 1 % (0-3) Neutrophils # (Auto) 7.1 x10^3uL (1.8-7.7) Lymphocytes # (Auto) 1.7 x10^3/uL (1.0-4.8) Monocytes # (Auto) 1.0 x10^3/uL (0.0-1.1) Eosinophils # (Auto) 0.1 x10^3/uL (0.0-0.7) Basophils # (Auto) 0.1 x10^3/uL (0.0-0.2) Sodium Level 147 mmol/L (136-145) H Potassium Level 2.9 mmol/L (3.5-5.1) *L Chloride Level 106 mmol/L (98-107) Carbon Dioxide Level 26 mmol/L (21-32) Anion Gap 15 (6-14) H Blood Urea Nitrogen 8 mg/dL (8-26) Creatinine 0.8 mg/dL (0.7-1.3) Estimated GFR (Cockcroft-Gault) 99.6 BUN/Creatinine Ratio 10 (6-20) Glucose Level 102 mg/dL (70-99) H Calcium Level 8.6 mg/dL (8.5-10.1) Total Bilirubin 0.3 mg/dL (0.2-1.0) Aspartate Amino Transferase (AST) 92 U/L (15-37) H Alanine Aminotransferase (ALT) 87 U/L (16-63) H Alkaline Phosphatase 104 U/L (46-116) Total Protein 8.1 g/dL (6.4-8.2) Albumin 3.0 g/dL (3.4-5.0) L Albumin/Globulin Ratio 0.6 (1.0-1.7) L Current Medications: Meds: Laboratory Tests Test 07/03/20 05:48 White Blood Count 10.1 x10^3/uL Red Blood Count 5.20 x10^6/uL Hemoglobin 15.0 g/dL Hematocrit 46.4 % Mean Corpuscular Volume 89 fL Mean Corpuscular Hemoglobin 29 pg Mean Corpuscular Hemoglobin Concent 32 g/dL Red Cell Distribution Width 14.0 % Platelet Count 340 x10^3/uL Neutrophils (%) (Auto) 70 % Lymphocytes (%) (Auto) 17 % Monocytes (%) (Auto) 10 % Eosinophils (%) (Auto) 1 % Basophils (%) (Auto) 1 % Neutrophils # (Auto) 7.1 x10^3uL Lymphocytes # (Auto) 1.7 x10^3/uL Monocytes # (Auto) 1.0 x10^3/uL Eosinophils # (Auto) 0.1 x10^3/uL Basophils # (Auto) 0.1 x10^3/uL Sodium Level 147 mmol/L Potassium Level 2.9 mmol/L Chloride Level 106 mmol/L Carbon Dioxide Level 26 mmol/L Anion Gap 15 Blood Urea Nitrogen 8 mg/dL Creatinine 0.8 mg/dL Estimated GFR (Cockcroft-Gault) 99.6 BUN/Creatinine Ratio 10 Glucose Level 102 mg/dL Calcium Level 8.6 mg/dL Total Bilirubin 0.3 mg/dL Aspartate Amino Transf (AST/SGOT) 92 U/L Alanine Aminotransferase (ALT/SGPT) 87 U/L Alkaline Phosphatase 104 U/L Total Protein 8.1 g/dL Albumin 3.0 g/dL Albumin/Globulin Ratio 0.6 Current Medications Medications (Trade) Dose Ordered Sig/Edenilson Route PRN Reason Start Time Stop Time Status Last Admin Dose Admin Acetaminophen (Tylenol) 500 mg PRN Q4HRS PRN PO PAIN 06/15/20 21:15 06/18/20 14:09 Atorvastatin Calcium (Lipitor) 40 mg QHS PO 06/15/20 22:00 06/26/20 20:12 Clonazepam (KlonoPIN) 0.5 mg BID PO 06/15/20 22:00 06/27/20 18:02 DC 06/27/20 10:56 Fenofibrate (Tricor) 145 mg QHS PO 06/15/20 22:00 06/26/20 20:13 Levetiracetam (Keppra) 500 mg BID PO 06/15/20 22:00 06/28/20 19:00 DC 06/27/20 10:55 Lorazepam (Ativan) 1 mg PRN BID PRN PO ANXIETY / AGITATION 06/15/20 21:15 06/23/20 11:01 Al Hydroxide/Mg Hydroxide (Mylanta Plus Xs) 30 ml PRN AFTMEALHC PRN PO DYSPEPSIA 06/15/20 21:15 06/17/20 18:25 Magnesium Hydroxide (Milk Of Magnesia) 2,400 mg PRN DAILY PRN PO CONSTIPATION 06/15/20 21:15 06/23/20 12:03 Olanzapine (ZyPREXA ZYDIS) 10 mg BID PO 06/15/20 22:00 07/03/20 08:19 Phenytoin Sodium (Dilantin) 100 mg DAILY PO 06/16/20 09:00 06/27/20 18:02 DC 06/27/20 10:56 Prazosin HCl (Minipress) 1 mg QHS PO 06/15/20 22:00 2/3/21 20:13 Quetiapine Fumarate (SEROquel) 50 mg BID94 PO 06/16/20 09:00 06/27/20 18:02 DC 06/27/20 10:55 Sertraline HCl (Zoloft) 50 mg DAILY PO 06/16/20 09:00 06/27/20 10:56 Sucralfate (Carafate) 1 gm HS PO 06/15/20 22:00 06/26/20 20:12 Clozapine (Clozaril) 200 mg DAILY PO 06/16/20 09:00 06/28/20 18:00 DC 06/27/20 10:55 Clozapine (Clozaril) 600 mg QHS PO 06/15/20 22:00 06/28/20 18:00 DC 06/27/20 19:52 Hydroxyzine Pamoate (Vistaril) 25 mg BID PO 06/15/20 22:00 06/22/20 17:59 DC 06/22/20 08:05 Lactulose (Lactulose) 20 gm TID PO 06/16/20 09:00 06/24/20 16:20 DC 06/24/20 08:53 Levothyroxine Sodium (Synthroid) 125 mcg DAILY06 PO 06/16/20 06:00 06/26/20 05:12 Loperamide HCl (Imodium) 2 mg PRN DAILY PRN PO loose stools 06/15/20 22:00 Multi-Ingredient Ointment (Analgesic Rowe) 1 dennis PRN QID PRN TP MUSCLE PAIN 06/15/20 22:15 Mirabegron (Myrbetriq) 50 mg QHS PO 06/15/20 22:00 06/26/20 20:13 Multivitamins/ Calcium (Thera-M Plus) 1 tab DAILY PO 06/16/20 09:00 06/26/20 08:47 Pantoprazole Sodium (Protonix) 40 mg DAILYAC PO 06/16/20 07:30 06/27/20 10:56 Phenytoin Sodium (Dilantin) 200 mg HS PO 06/15/20 22:00 06/27/20 18:02 DC 06/26/20 20:12 Non-Formulary Medication (Quetiapine Fumarate (Seroquel Xr)) 600 mg QHS PO 06/16/20 21:00 06/16/20 17:14 DC Non-Formulary Medication (Tiagabine Hcl (Gabitril)) 4 mg TID PO 06/16/20 09:00 06/16/20 11:26 DC Olanzapine (ZyPREXA ZYDIS) 5 mg PRN Q2HR PRN PO PSYCHOSIS 06/16/20 11:30 07/03/20 12:58 Tiagabine HCl (Gabitril) 4 mg TID PO 06/16/20 14:00 06/23/20 16:54 DC 06/23/20 15:04 Quetiapine Fumarate (SEROquel) 600 mg QHS PO 06/16/20 21:00 06/26/20 17:25 DC 06/24/20 19:58 Divalproex Sodium (Depakote Er) 500 mg HS PO 06/16/20 21:00 06/17/20 02:14 DC 06/16/20 20:44 Divalproex Sodium (Depakote Sprinkles) 500 mg QHS PO 06/17/20 21:00 06/19/20 17:09 DC 06/18/20 19:40 Divalproex Sodium (Depakote Sprinkles) 500 mg BID PO 06/19/20 21:00 06/23/20 21:00 DC 06/23/20 21:10 Ondansetron HCl (Zofran Odt) 4 mg PRN Q4HRS PRN PO NAUSEA/VOMITING 06/20/20 21:45 06/26/20 08:05 Docusate Sodium (Colace) 100 mg BID PO 06/23/20 21:00 06/26/20 20:12 Polyethylene Glycol (miraLAX) 17 gm DAILY PO 06/24/20 09:00 06/26/20 08:45 Divalproex Sodium (Depakote Sprinkles) 750 mg BID PO 06/24/20 09:00 06/27/20 10:55 Levofloxacin (Levaquin) 500 mg DAILY06 PO 06/26/20 19:45 06/27/20 10:34 DC 06/26/20 20:11 Levofloxacin (Levaquin) 500 mg Q24H PO 06/27/20 21:00 06/29/20 08:55 DC Lactobacillus Rhamnosus (Culturelle) 1 cap BID PO 06/27/20 21:00 Clonazepam (KlonoPIN) 0.5 mg QHS PO 06/27/20 21:00 06/28/20 07:00 DC Phenytoin Sodium (Dilantin) 100 mg DAILY PO 06/28/20 09:00 06/28/20 19:00 DC Phenytoin Sodium (Dilantin) 200 mg QHS PO 06/27/20 21:00 06/28/20 19:00 DC 06/27/20 19:52 Sodium Chloride 1,000 ml @ 1,000 mls/hr 1X ONCE IV 06/28/20 16:00 06/28/20 16:59 DC 06/28/20 16:00 Fosphenytoin Sodium (Cerebyx) 300 mg HS IV 06/28/20 21:00 07/02/20 21:39 Levetiracetam 500 mg/Sodium Chloride 100 ml @ 400 mls/hr Q12HR IV 06/28/20 21:00 07/03/20 07:39 Levofloxacin/ Dextrose 100 ml @ 100 mls/hr Q24H IV 06/29/20 09:00 07/01/20 13:02 DC 07/01/20 12:47 Levofloxacin/ Dextrose 100 ml @ 100 mls/hr Q24H IV 07/02/20 13:00 07/03/20 12:58 Dextrose 1,000 ml @ 100 mls/hr Q10H IV 07/03/20 06:30 07/03/20 07:18 DC Potassium Chloride 40 meq/ Dextrose 1,020 ml @ 100 mls/hr [id number] IV 07/03/20 07:30 07/03/20 08:19 Ketorolac Tromethamine (Toradol 30mg Vial) 30 mg 1X ONCE IVP 07/03/20 10:30 07/03/20 10:31 DC 07/03/20 10:30 Current Medications Medications (Trade) Dose Ordered Sig/Edenilson Route PRN Reason Start Time Stop Time Status Last Admin Dose Admin Potassium Chloride 40 meq/ Dextrose 1,020 ml @ 100 mls/hr [id number] IV 07/03/20 07:30 07/03/20 08:19 Ketorolac Tromethamine (Toradol 30mg Vial) 30 mg 1X ONCE IVP 07/03/20 10:30 07/03/20 10:31 DC 07/03/20 10:30 I have reviewed the current psychotropics carefully including drug interactions. Risk benefit ratio favors no change other than as noted in my dictated progress note. Diagnosis: Problems: (1) Bipolar disorder, curr episode mixed, severe, with psychotic features (2) Mild intellectual disability (3) Anxiety disorder, unspecified (4) Impulse control disorder (5) Schizoaffective disorder, chronic condition with acute exacerbation STEVEN AYALA MD Jul 03, 2020 21:05
--- NOTE | 2020-07-03 21:44 | NUR ---
Transition Record was faxed to follow-up provider with the following elements: Reason for admission, procedures, tests, principal diagnosis, pending studies, patient instructions, 14/12 contact information for unit, phone number to obtain pending test results, plan for follow-up care, physician follow-up, advanced directive information, and medication list with dose, duration and instructions. This information was included in the following documents: History and physical, lab results, study results, progress notes, social work planning form, DC instruction form, patient visit summary, and medication reconciliation form. Date & time record faxed: 07/03/202101 Record faxed to: [facility] [phone] Record discussed with/ report given to: Pili MCINTOSH
--- NOTE | 2020-07-04 08:12 | PDOC ---
Exam Note: Chad Note: This note is a late entry for 07/03/2020 covers elements not covered in my initial note. Subjective: The patient was seen face to face in the evening of 07/03/2020 with Fred MCINTOSH, discussed and reviewed the chart. The patient slept 3-3/4 hours previous night. He has been more alert. He remains on IV fluids. He became somewhat verbally abusive to nursing staff, demanding. Received Zyprexa in the morning and p.r.n., did better after that. Speech therapy was evaluated and he remains on NPO status. Review of Systems: Ambulation impaired. He complains of tiredness. No CV, , pulmonary, eye, ENT system symptoms on review. Mental Status Exam: The patient is oriented to himself. He was verbal, interactive, confused, withdrawn. Denies suicidal or homicidal ideation. Attention span is short. Language function is intact. Laboratory Data: Reviewed. Impression: Schizoaffective disorder, bipolar type. Anxiety disorder unspecified. Impulse control disorder unspecified. Mild intellectual disability. Plan: Continue psychotropics from initial note. Assessment: Vital Signs/I&O: Vital Signs Date Time Temp Pulse Resp B/P (MAP) Pulse Ox O2 Delivery O2 Flow Rate FiO2 07/03/20 16:46 98.0 95 20 146/80 (102) 98 Room Air Current Medications: Meds: Current Medications Medications (Trade) Dose Ordered Sig/Edenilson Route PRN Reason Start Time Stop Time Status Last Admin Dose Admin Acetaminophen (Tylenol) 500 mg PRN Q4HRS PRN PO PAIN 06/15/20 21:15 07/03/20 21:47 DC 06/18/20 14:09 Atorvastatin Calcium (Lipitor) 40 mg QHS PO 06/15/20 22:00 07/03/20 21:47 DC 06/26/20 20:12 Clonazepam (KlonoPIN) 0.5 mg BID PO 06/15/20 22:00 06/27/20 18:02 DC 06/27/20 10:56 Fenofibrate (Tricor) 145 mg QHS PO 06/15/20 22:00 07/03/20 21:47 DC 06/26/20 20:13 Levetiracetam (Keppra) 500 mg BID PO 06/15/20 22:00 06/28/20 19:00 DC 06/27/20 10:55 Lorazepam (Ativan) 1 mg PRN BID PRN PO ANXIETY / AGITATION 06/15/20 21:15 07/03/20 21:47 DC 06/23/20 11:01 Al Hydroxide/Mg Hydroxide (Mylanta Plus Xs) 30 ml PRN AFTMEALHC PRN PO DYSPEPSIA 06/15/20 21:15 07/03/20 21:47 DC 06/17/20 18:25 Magnesium Hydroxide (Milk Of Magnesia) 2,400 mg PRN DAILY PRN PO CONSTIPATION 06/15/20 21:15 07/03/20 21:47 DC 06/23/20 12:03 Olanzapine (ZyPREXA ZYDIS) 10 mg BID PO 06/15/20 22:00 07/03/20 21:47 DC 07/03/20 08:19 Phenytoin Sodium (Dilantin) 100 mg DAILY PO 06/16/20 09:00 06/27/20 18:02 DC 06/27/20 10:56 Prazosin HCl (Minipress) 1 mg QHS PO 06/15/20 22:00 07/03/20 21:47 DC 06/26/20 20:13 Quetiapine Fumarate (SEROquel) 50 mg BID94 PO 06/16/20 09:00 06/27/20 18:02 DC 06/27/20 10:55 Sertraline HCl (Zoloft) 50 mg DAILY PO 06/16/20 09:00 07/03/20 21:47 DC 06/27/20 10:56 Sucralfate (Carafate) 1 gm HS PO 06/15/20 22:00 07/03/20 21:47 DC 06/26/20 20:12 Clozapine (Clozaril) 200 mg DAILY PO 06/16/20 09:00 06/28/20 18:00 DC 06/27/20 10:55 Clozapine (Clozaril) 600 mg QHS PO 06/15/20 22:00 06/28/20 18:00 DC 06/27/20 19:52 Hydroxyzine Pamoate (Vistaril) 25 mg BID PO 06/15/20 22:00 06/22/20 17:59 DC 06/22/20 08:05 Lactulose (Lactulose) 20 gm TID PO 06/16/20 09:00 06/24/20 16:20 DC 06/24/20 08:53 Levothyroxine Sodium (Synthroid) 125 mcg DAILY06 PO 06/16/20 06:00 07/03/20 21:47 DC 06/26/20 05:12 Loperamide HCl (Imodium) 2 mg PRN DAILY PRN PO loose stools 06/15/20 22:00 07/03/20 21:47 DC Multi-Ingredient Ointment (Analgesic Premont) 1 dennis PRN QID PRN TP MUSCLE PAIN 06/15/20 22:15 07/03/20 21:47 DC Mirabegron (Myrbetriq) 50 mg QHS PO 06/15/20 22:00 07/03/20 21:47 DC 06/26/20 20:13 Multivitamins/ Calcium (Thera-M Plus) 1 tab DAILY PO 06/16/20 09:00 07/03/20 21:47 DC 06/26/20 08:47 Pantoprazole Sodium (Protonix) 40 mg DAILYAC PO 06/16/20 07:30 07/03/20 21:47 DC 06/27/20 10:56 Phenytoin Sodium (Dilantin) 200 mg HS PO 06/15/20 22:00 06/27/20 18:02 DC 06/26/20 20:12 Non-Formulary Medication (Quetiapine Fumarate (Seroquel Xr)) 600 mg QHS PO 06/16/20 21:00 06/16/20 17:14 DC Non-Formulary Medication (Tiagabine Hcl (Gabitril)) 4 mg TID PO 06/16/20 09:00 06/16/20 11:26 DC Olanzapine (ZyPREXA ZYDIS) 5 mg PRN Q2HR PRN PO PSYCHOSIS 06/16/20 11:30 07/03/20 21:47 DC 07/03/20 12:58 Tiagabine HCl (Gabitril) 4 mg TID PO 06/16/20 14:00 06/23/20 16:54 DC 06/23/20 15:04 Quetiapine Fumarate (SEROquel) 600 mg QHS PO 06/16/20 21:00 06/26/20 17:25 DC 06/24/20 19:58 Divalproex Sodium (Depakote Er) 500 mg HS PO 06/16/20 21:00 06/17/20 02:14 DC 06/16/20 20:44 Divalproex Sodium (Depakote Sprinkles) 500 mg QHS PO 06/17/20 21:00 06/19/20 17:09 DC 06/18/20 19:40 Divalproex Sodium (Depakote Sprinkles) 500 mg BID PO 06/19/20 21:00 06/23/20 21:00 DC 06/23/20 21:10 Ondansetron HCl (Zofran Odt) 4 mg PRN Q4HRS PRN PO NAUSEA/VOMITING 06/20/20 21:45 07/03/20 21:47 DC 06/26/20 08:05 Docusate Sodium (Colace) 100 mg BID PO 06/23/20 21:00 07/03/20 21:47 DC 06/26/20 20:12 Polyethylene Glycol (miraLAX) 17 gm DAILY PO 06/24/20 09:00 07/03/20 21:47 DC 06/26/20 08:45 Divalproex Sodium (Depakote Sprinkles) 750 mg BID PO 06/24/20 09:00 07/03/20 21:47 DC 06/27/20 10:55 Levofloxacin (Levaquin) 500 mg DAILY06 PO 06/26/20 19:45 06/27/20 10:34 DC 06/26/20 20:11 Levofloxacin (Levaquin) 500 mg Q24H PO 06/27/20 21:00 06/29/20 08:55 DC Lactobacillus Rhamnosus (Culturelle) 1 cap BID PO 06/27/20 21:00 07/03/20 21:47 DC Clonazepam (KlonoPIN) 0.5 mg QHS PO 06/27/20 21:00 06/28/20 07:00 DC Phenytoin Sodium (Dilantin) 100 mg DAILY PO 06/28/20 09:00 06/28/20 19:00 DC Phenytoin Sodium (Dilantin) 200 mg QHS PO 06/27/20 21:00 06/28/20 19:00 DC 06/27/20 19:52 Sodium Chloride 1,000 ml @ 1,000 mls/hr 1X ONCE IV 06/28/20 16:00 06/28/20 16:59 DC 06/28/20 16:00 Fosphenytoin Sodium (Cerebyx) 300 mg HS IV 06/28/20 21:00 07/03/20 21:47 DC 07/02/20 21:39 Levetiracetam 500 mg/Sodium Chloride 100 ml @ 400 mls/hr Q12HR IV 06/28/20 21:00 07/03/20 21:47 DC 07/03/20 07:39 Levofloxacin/ Dextrose 100 ml @ 100 mls/hr Q24H IV 06/29/20 09:00 07/01/20 13:02 DC 07/01/20 12:47 Levofloxacin/ Dextrose 100 ml @ 100 mls/hr Q24H IV 07/02/20 13:00 07/03/20 21:47 DC 07/03/20 12:58 Dextrose 1,000 ml @ 100 mls/hr Q10H IV 07/03/20 06:30 07/03/20 07:18 DC Potassium Chloride 40 meq/ Dextrose 1,020 ml @ 100 mls/hr [id number] IV 07/03/20 07:30 07/03/20 21:47 DC 07/03/20 08:19 Ketorolac Tromethamine (Toradol 30mg Vial) 30 mg 1X ONCE IVP 07/03/20 10:30 07/03/20 10:31 DC 07/03/20 10:30 Current Medications Medications (Trade) Dose Ordered Sig/Edenilson Route PRN Reason Start Time Stop Time Status Last Admin Dose Admin Ketorolac Tromethamine (Toradol 30mg Vial) 30 mg 1X ONCE IVP 07/03/20 10:30 07/03/20 10:31 DC 07/03/20 10:30 I have reviewed the current psychotropics carefully including drug interactions. Risk benefit ratio favors no change other than as noted in my dictated progress note. Diagnosis: Problems: (1) Schizoaffective disorder, chronic condition with acute exacerbation (2) Impulse control disorder (3) Mild intellectual disability (4) Anxiety disorder, unspecified (5) Bipolar disorder, curr episode mixed, severe, with psychotic features STEVEN AYALA MD Jul 04, 2020 08:12
--- NOTE | 2020-07-07 22:42 | DS ---
DATE OF DISCHARGE: 07/03/2020 PSYCHIATRIC PROGRESS NOTE AND DISCHARGE SUMMARY This late entry date of service 07/03/2020 covers elements not covered in my initial note. REASON FOR ADMISSION: Please refer to the admission history for details. Briefly, the patient is a 55-year-old male referred to us from [facility] on account of an acute exacerbation of his schizoaffective disorder, bipolar type, with psychotic features. The patient had a marked increase in his mood lability, was throwing his belongings, agitated, yelling, disruptive, aggressive. He is unmanageable at the facility, had failed outpatient psychiatric interventions resulting in this referral. SIGNIFICANT FINDINGS AND CLINICAL COURSE: Following admission, the patient was seen daily individually by myself from a psychiatric standpoint, medical followup with Dr. Case/Dr. Angulo. The patient is extremely agitated, labile at times, physically aggressive, threatening, demanding. Adjustments were made in his psychotropics and he seemed to do a little better, then became overly sedated and old sedating antipsychotics were discontinued. He was placed on IV fluids per Dr. Case/Dr. Angulo and he had a speech consult showing marked aspiration needing to be n.p.o. After several days of this, he was discharged to [facility] for G-tube placement after discussion with his brother who is his guardian. REVIEW OF SYSTEMS: Prior to discharge, the patient is oriented to himself and situation. Speech somewhat garbled. Abstraction fair, computation impaired, language function intact. No active suicidal or homicidal ideation. LABORATORY DATA: Reviewed. FINAL DIAGNOSES: Schizoaffective disorder, bipolar type, mixed with psychotic features, in partial remission. Significant aspiration risk, on IV fluids needing G-tube placement, anxiety disorder, unspecified; impulse control disorder, unspecified. Rest unchanged from admission. DISCHARGE MEDICATIONS: Please refer to the MRAD. DISCHARGE INSTRUCTIONS: Psychiatric and medical followup at the [facility]. Time for discharge day management greater than 30 minutes. MAN Suleman AYALA MD DR: ADALBERTO/garry JOB#: [id number] / [id number]
== END 2020-07-03 21:47 | disposition short-term general hospital (02) | DRG 885 ==
LOC: GEROPSY 15:45
PROVIDERS: ADMIT Psychiatry & Neurology Psychiatry; ATTEND Psychiatry & Neurology Psychiatry
DX: F25.0 Schizoaffective disorder, bipolar type (principal); F05 Delirium due to known physiological condition; F70 Mild intellectual disabilities; J69.0 Pneumonitis due to inhalation of food and vomit; F02.80 Dementia in other diseases classified elsewhere, unspecified severity, without behavioral disturbance, psychotic disturbance, mood disturbance, and anxiety; K21.9 Gastro-esophageal reflux disease without esophagitis; Z20.822 Contact with and (suspected) exposure to COVID-19; F41.9 Anxiety disorder, unspecified; E03.9 Hypothyroidism, unspecified; E78.5 Hyperlipidemia, unspecified; F63.9 Impulse disorder, unspecified; G30.9 Alzheimer's disease, unspecified; G40.909 Epilepsy, unspecified, not intractable, without status epilepticus; R62.50 Unspecified lack of expected normal physiological development in childhood; R13.10 Dysphagia, unspecified; R32 Unspecified urinary incontinence; Z79.899 Other long term (current) drug therapy; Z88.8 Allergy status to other drugs, medicaments and biological substances
CPT/HCPCS: 36415; 70450; 71045; 74018; 80053; 80061; 80164; 80185; 81001; 82140; 82306; 82550; 82607; 83036; 83540; 83550; 83605; 83690; 83735; 84146; 84436; 84443; 84480; 85025; 85379; 86592; 93005; J1885; J1953; J1956; J3480; Q0162; Q0177; Q2009; U0003; 92610; J7030